=== PATIENT | female | born 1950 | race Caucasian/White ===

== ENCOUNTER 2020-08-19 10:26 | Day surgery (SDC) | payer MEDICARE, OTHER, SELFPAY ==
[2020-08-12 17:52] VITALS: BMI 37.4
--- NOTE | 2020-08-16 09:58 | HO.ANESPROP2 ---
Documented by User: Mary Beasley 08/16/20 12:58 HPI - Anesthesia Eval Consult details Narrative: 70yo F for Colonoscopy T/C with patient: sees Dr Doss for cardiology. Last seen 03/2020. No CP/SOB/edema. PMFSH Past Medical History Medical History Arthritis COPD (chronic obstructive pulmonary disease) Coronary artery disease Diabetes Diarrhea GERD (gastroesophageal reflux disease) Myocardial infarct Surgical History Surgical History H/O: hysterectomy History of cardiac catheterization History of total right knee replacement (TKR) Hx of cholecystectomy Hx of tonsillectomy Social History Social History Smoking Status: Never smoker Second Hand Smoke Exposure: No Use of substances other than those prescribed or required for medical reasons: No Advance Directives: No Advance Directives Information Provided: No Advance Directives on File: No Recently lost weight without trying: No Narrative Narrative: C admit 11/2019 with CP. ACS r/o. Thought related to GI. Meds Allergies Allergy/AdvReac Type Severity Reaction Status Date / Time No Known Allergies Allergy Verified 08/19/20 11:03 Pain Med Sensitivity Allergy Unknown none Uncoded 08/19/20 11:03 Home Medications Medication Instructions Recorded Confirmed Type aspirin 1 tab PO QAM 08/12/20 08/19/20 History atorvastatin 1 tab PO BEDTIME 08/12/20 08/12/20 History cetirizine 1 tab PO DAILY 08/12/20 08/12/20 History cyanocobalamin (vitamin B-12) 1 tab PO QAM 08/12/20 08/12/20 History ferrous sulfate 1 tab PO BID 08/12/20 08/12/20 History fluticasone furoate-vilanterol 1 puff INHALATION DAILY 08/12/20 08/12/20 History [Breo Ellipta] ipratropium-albuterol 1 amp INHALATION QID 08/12/20 08/12/20 History metformin 1 tab PO BID 08/12/20 08/12/20 History metoprolol tartrate 1 tab PO BID 08/12/20 08/19/20 History nitroglycerin 1 tab SUBLINGUAL NEEDED 08/12/20 08/12/20 History oxybutynin chloride 1 tab PO DAILY 08/12/20 08/12/20 History pantoprazole 1 tab PO BID 08/12/20 08/12/20 History sertraline 1 tab PO BEDTIME 08/12/20 08/12/20 History trazodone 1 tab PO BEDTIME 08/12/20 08/12/20 History Exam Exam Date and Time: August 16, 2020 0958 Height,Weight and Vital Signs: Height 5 ft 1 in Weight 89.811 kg Pertinent Lab Results Pertinent Lab Results: Laboratory Tests 12/02/19 02/13/20 19:33 07:26 WBC 10.6 Hgb 11.7 L Hct 35.8 L Plt Count 212 Sodium 142 Potassium 4.7 D Chloride 107 BUN 22 H Creatinine 1.03 Narrative Narrative: EKG 11/2019: NSR, Nonspecific ST abn Assessment and Plan Assessment Anesthesia Assessment: Chart Reviewed Documented by User: Sabino Smalls 08/19/20 11:11 PMFSH Past Medical History Medical History Arthritis COPD (chronic obstructive pulmonary disease) Coronary artery disease Diabetes Diarrhea GERD (gastroesophageal reflux disease) Myocardial infarct Surgical History Surgical History H/O: hysterectomy History of cardiac catheterization History of total right knee replacement (TKR) Hx of cholecystectomy Hx of tonsillectomy Social History Social History Smoking Status: Never smoker Second Hand Smoke Exposure: No Use of substances other than those prescribed or required for medical reasons: No Advance Directives: No Advance Directives Information Provided: No Advance Directives on File: No Recently lost weight without trying: No Meds Allergies Allergy/AdvReac Type Severity Reaction Status Date / Time No Known Allergies Allergy Verified 08/19/20 11:03 Pain Med Sensitivity Allergy Unknown none Uncoded 08/19/20 11:03 Home Medications Medication Instructions Recorded Confirmed Type aspirin 1 tab PO QAM 12/07/20 12/14/20 History atorvastatin 1 tab PO BEDTIME 08/12/20 08/12/20 History cetirizine 1 tab PO DAILY 08/12/20 08/12/20 History cyanocobalamin (vitamin B-12) 1 tab PO QAM 08/12/20 08/12/20 History ferrous sulfate 1 tab PO BID 08/12/20 08/12/20 History fluticasone furoate-vilanterol 1 puff INHALATION DAILY 08/12/20 08/12/20 History [Breo Ellipta] ipratropium-albuterol 1 amp INHALATION QID 08/12/20 08/12/20 History metformin 1 tab PO BID 08/12/20 08/12/20 History metoprolol tartrate 1 tab PO BID 08/12/20 08/19/20 History nitroglycerin 1 tab SUBLINGUAL NEEDED 08/12/20 08/12/20 History oxybutynin chloride 1 tab PO DAILY 08/12/20 08/12/20 History pantoprazole 1 tab PO BID 08/12/20 08/12/20 History sertraline 1 tab PO BEDTIME 08/12/20 08/12/20 History trazodone 1 tab PO BEDTIME 08/12/20 08/12/20 History Exam Airway Mallampati Class: III TM Dist: >3cm Neck ROM: Full
[2020-08-19 11:05] VITALS: BP 118/57; PULSE 70; RESP 18; TEMP 35.9
[2020-08-19 11:16] LABS: Glucose, Whole Blood 166 mg/dL (60-115)
[2020-08-19 12:08] VITALS: BP 109/48; PULSE 66; RESP 15; TEMP 36.2; O2SAT 98
--- NOTE | 2020-08-19 12:17 | PM.OP ---
Brief Operative Note Date of Service: 08/19/20 Pre-op diagnosis: Screening, Hx of colon polyps, Family hx of colon cancer Post-op diagnosis: other (Colon polyp, Diverticulosis) Procedure: Colonoscopy to cecum with biopsy and removal of polyp Surgeon: Ricky Bee Anesthesia: MAC Estimated blood loss (mL): 3.0 Pathology: other (A. Transverse colon polyp) Condition: stable Disposition: PACU
[2020-08-19 12:23] VITALS: BP 120/55; PULSE 63; RESP 14; TEMP 36.2; O2SAT 96
--- NOTE | 2020-08-19 13:04 | HO.POSTANES ---
Post Anesthesia Evaluation Post Anesthesia Evaluation Vital Signs: Vital Signs Temp Pulse Resp BP Pulse Ox 08/19/20 12:23 97.1 F 63 14 120/55 L 96 08/19/20 12:08 97.1 F 66 15 109/48 L 98 08/19/20 11:05 96.7 F L 70 18 118/57 L Anesthesia: Monitored Mental Status: Awake Pain Control: Satisfactory Nausea/Vomiting: None Hydration: Adequate Anesthesia-Related Issues: No Anes. Related Issues
--- NOTE | 2020-08-19 21:54 | OP_ITS ---
SURGEON: Ricky Bee MD INDICATIONS: The patient presents for evaluation of personal history of tubular adenoma of the colon, family history of colon cancer, and colorectal cancer screening. Full consent was obtained from her for this, including risks of bleeding and perforation. PREOPERATIVE DIAGNOSIS: POSTOPERATIVE DIAGNOSIS: PROCEDURE PERFORMED: Colonoscopy to cecum with biopsy and removal of polyp. ESTIMATED BLOOD LOSS: COMPLICATIONS: ANESTHESIA: Medication used, monitored anesthesia care. ASSISTANTS: SPECIMENS: PREOPERATIVE DIAGNOSES: Colorectal cancer screening, personal history of tubular adenoma of the colon, and family history of colon cancer. POSTOPERATIVE DIAGNOSES: Colorectal cancer screening, personal history of tubular adenoma of the colon, family history of colon cancer, small colon polyp, diverticulosis, and internal hemorrhoids. DESCRIPTION OF PROCEDURE: The patient was placed in the left lateral decubitus position. The digital rectal exam revealed no abnormalities. The Olympus video pediatric colonoscope was entered into the rectum and advanced easily to the cecum. Once in the cecum, I did identify normal-appearing cecal pouch with appendiceal orifice and a normal-appearing ileocecal valve. The entire cecum was well visualized and appeared normal. The scope was slowly withdrawn assessing all mucosal surfaces carefully. Preparation was excellent. In the transverse colon was a flat approximately 5 mm polyp, which was biopsied and completely removed with a cold biopsy forceps. I did not visualize any other polyps, colitis, nor angiodysplasia. There was a moderate amount of sigmoid diverticulosis. In the rectum, the scope was retroflexed visualizing internal hemorrhoids, but no other pathology. The rectal mucosa appeared normal. The scope was straightened and withdrawn from the patient. She tolerated the procedure well and was returned to the recovery area in stable condition. IMPRESSION: 1. Small colon polyp, status post biopsy removal. 2. Diverticulosis. 3. Internal hemorrhoids. PLAN: The results of the biopsy will be checked. Given her history of tubular adenomas and her family history, I would recommend a followup colonoscopy in 5 years for further screening. She will otherwise see me on a p.r.n. basis. She was advised to resume aspirin by tomorrow. She will also continue using her pantoprazole once or twice a day for symptomatic relief of reflux. She will otherwise see me on a p.r.n. basis. MD DELANO Slaughter/JACK / [id number]
== END 2020-08-19 13:09 | disposition home or self-care (01) ==
PROVIDERS: PCP Student in an Organized Health Care Education/Training Program; Visit Provider Internal Medicine
PROC: 0DJD8ZZ Inspection of Lower Intestinal Tract, Via Natural or Artificial Opening Endoscopic (ICD-10-PCS; CPT 45378; principal; 2020-08-19 11:50)
DX: Z12.11 Encounter for screening for malignant neoplasm of colon (principal); D12.3 Benign neoplasm of transverse colon; K57.30 Diverticulosis of large intestine without perforation or abscess without bleeding; K64.8 Other hemorrhoids; Z86.010 Personal history of colon polyps; Z80.0 Family history of malignant neoplasm of digestive organs; E11.9 Type 2 diabetes mellitus without complications; Z79.84 Long term (current) use of oral hypoglycemic drugs
CPT/HCPCS: 45380; 82947; 88305

== ENCOUNTER 2020-12-04 08:26 | Outpatient (REF) | payer MEDICARE, OTHER, SELFPAY ==
[2020-12-04 10:16] LABS: Alanine Aminotransferase 15 U/L (0-31); Albumin Level 3.8 g/dL (3.5-5.0); Alkaline Phosphatase 90 U/L (39-117); Anion Gap 16 (12-20); Aspartate Amino Transferase 12 U/L (5-31); Bilirubin Direct < 0.2 mg/dL (0.0-0.5); Bilirubin Total 0.3 mg/dL (0.0-1.0); Blood Urea Nitrogen 18 mg/dL (9-16); Calcium 8.7 mg/dL (8.4-10.2); Carbon Dioxide 24 mmol/L (22-29); Chloride 104 mmol/L (96-108); Cholesterol 157 mg/dL; Estimated Glomerular Filt Rate 54; Glucose Random 170 mg/dL (60-115); HDL Cholesterol 33 mg/dL; LDL Cholesterol Calculated 90 mg/dl; Potassium 4.6 mmol/L (3.3-5.1); Sodium 139 mmol/L (135-145); Total Protein 6.1 g/dL (6.5-8.0); Triglycerides 172 mg/dL
[2020-12-04 10:47] LABS: Creatinine Urine 158.53 mg/dL
[2020-12-04 10:55] LABS: Estimated Average Glucose 157 mg/dL; Hemoglobin A1c % 7.1 %
== END 2020-12-04 08:27 | disposition home or self-care (01) ==
LOC: HO.LAB 08:26
PROVIDERS: PCP Student in an Organized Health Care Education/Training Program; Visit Provider Student in an Organized Health Care Education/Training Program
DX: E11.9 Type 2 diabetes mellitus without complications (principal); I10 Essential (primary) hypertension
CPT/HCPCS: 36415; 80048; 80061; 80076; 82043; 83036

== ENCOUNTER 2021-03-04 13:20 | Outpatient (REF) | payer MEDICARE, OTHER, SELFPAY ==
--- NOTE | ~2021-03-04 | US_ITS ---
EXAMINATION: US VENOUS ULTRASOUND WITH DOPPLER LOWER EXTREMITY, RIGHT CLINICAL INFORMATION: Pain COMPARISON: Previous exam April 2014 TECHNIQUE: Ultrasound of the deep veins is performed from the hip to the calf with compression sonography and color and pulse Doppler assessment. Spectral analysis with color-flow imaging is performed. FINDINGS: There is normal venous compression and respiratory variation and augmented flow. The visualized common femoral vein, superficial femoral vein, profunda femoral vein, popliteal vein, and the trifurcation region shows no evidence of deep venous thrombosis. There is no significant popliteal fossa cyst. US/US venous duplex LE RT IMPRESSION: No DVT demonstrated in the right lower extremity.
[2021-03-04 14:38] LABS: MANUAL DIFF FLAG NO
[2021-03-04 14:48] LABS: Basophils Absolute Auto 0.1 X10*3/uL (0.0-0.2); Basophils Percent Auto 0.7 % (0-2); Hematocrit 36.7 % (37-47); Hemoglobin 11.7 g/dl (12.0-16.0); Imm Gran Abs Auto 0.08 X10*3/uL (0.00-0.03); Imm Gran Pct Auto 0.8 % (0.0-0.4); Lymphocytes Percent Auto 28.6 % (20-40); Mean Corpuscular HGB Conc 31.9 g/dl (31.0-35.0); Mean Corpuscular Volume 91.1 fL (80-98); Mean Platelet Volume 10.5 fL (9.4-12.3); Monocytes Absolute Auto 0.6 X10*3/uL (0.1-1.2); Neutrophils Absolute Auto 6.7 X10*3/uL (2.0-8.3); Neutrophils Percent Auto 63.9 % (45-73); Platelet Count 267 X10*3/uL (160-400); Red Blood Count 4.03 X10*6/uL (4.20-5.50); Red Cell Distribution Width 13.4 % (11.0-16.0); White Blood Count 10.4 X10*3/uL (4.8-10.8)
[2021-03-04 15:15] LABS: Alanine Aminotransferase 13 U/L (0-31); Albumin Level 4.1 g/dL (3.5-5.0); Alkaline Phosphatase 96 U/L (39-117); Anion Gap 18 (12-20); Aspartate Amino Transferase 14 U/L (5-31); Bilirubin Total < 0.2 mg/dL (0.0-1.0); Blood Urea Nitrogen 22 mg/dL (9-16); Calcium 9.2 mg/dL (8.4-10.2); Carbon Dioxide 23 mmol/L (22-29); Chloride 104 mmol/L (96-108); Estimated Glomerular Filt Rate 41; Glucose Random 133 mg/dL (60-115); Potassium 4.7 mmol/L (3.3-5.1); Sodium 140 mmol/L (135-145); Total Protein 6.6 g/dL (6.5-8.0)
[2021-03-04 15:35] LABS: TSH reflex Free T4 1.38 uIU/mL (0.32-4.0)
== END 2021-03-04 13:21 | disposition home or self-care (01) ==
LOC: HO.US 13:20
PROVIDERS: Absent Provider Student in an Organized Health Care Education/Training Program; PCP Student in an Organized Health Care Education/Training Program; Visit Provider General Practice
DX: M79.604 Pain in right leg (principal)
CPT/HCPCS: 36415; 80053; 84443; 85025; 93971

== ENCOUNTER 2021-05-01 13:22 | Outpatient (REF) | payer MEDICARE, OTHER, SELFPAY ==
[2021-05-01 14:41] LABS: COVID-19 Test Negative (Negative)
== END 2021-05-01 13:23 | disposition home or self-care (01) ==
LOC: HO.LAB 13:22
PROVIDERS: PCP Student in an Organized Health Care Education/Training Program; Visit Provider Internal Medicine
DX: Z20.822 Contact with and (suspected) exposure to COVID-19 (principal)
CPT/HCPCS: 36415; 87635; C9803

== ENCOUNTER → 2021-07-28 13:47 | Outpatient (BNVA) | payer MEDICARE, OTHER, SELFPAY | PROVIDERS: PCP Student in an Organized Health Care Education/Training Program; Visit Provider Orthopaedic Surgery | DX: M17.12 Unilateral primary osteoarthritis, left knee (principal); J44.9 Chronic obstructive pulmonary disease, unspecified; E11.9 Type 2 diabetes mellitus without complications; I25.10 Atherosclerotic heart disease of native coronary artery without angina pectoris | CPT/HCPCS: 99212 ==

== ENCOUNTER → 2021-09-30 12:54 | Outpatient (BNVA) | payer MEDICARE, SELFPAY | PROVIDERS: Visit Provider Orthopaedic Surgery | DX: Z01.812 Encounter for preprocedural laboratory examination (principal) ==

== ENCOUNTER 2021-10-07 08:59 | Outpatient (REF) | payer MEDICARE, OTHER, SELFPAY ==
[2021-10-07 10:53] LABS: Hemoglobin 11.9 g/dl (12.0-16.0); Mean Corpuscular HGB Conc 32.2 g/dl (31.0-35.0); Mean Corpuscular Hemoglobin 29.5 pg (27.0-33.0); Mean Corpuscular Volume 91.8 fL (80.0-98.0); Mean Platelet Volume 10.9 fL (9.4-12.3); Platelet Count 244 X10*3/uL (160-400); Red Blood Count 4.03 X10*6/uL (4.20-5.50); Red Cell Distribution Width 13.4 % (11.0-16.0)
[2021-10-07 10:54] LABS: Anion Gap 16 (12-20); Blood Urea Nitrogen 20 mg/dL (9-16); Calcium 10.1 mg/dL (8.4-10.2); Carbon Dioxide 27 mmol/L (22-29); Chloride 102 mmol/L (96-108); Estimated Glomerular Filt Rate 43; Glucose Random 126 mg/dL (60-115); Potassium 4.5 mmol/L (3.3-5.1); Sodium 140 mmol/L (135-145); WBC ABN SCTR FOR CBC 1
[2021-10-07 11:16] LABS: Estimated Average Glucose 126 mg/dL
[2021-10-07 11:24] LABS: Band Neutrophils Percent 3 % (3-5); Eosinophils Percent Manual 7 % (0-4); Lymphocytes Percent Manual 25 % (20-40); Monocytes Percent Manual 9 % (2-11); Neutrophils Percent Manual 56 % (45-73)
[2021-10-07 11:25] LABS: Ovalocytes 1+ (5-14) /OIF; RBC Morphology NOTED
[2021-10-07 11:26] LABS: Acanthocytes 1+ (0-2) /OIF; Basophilic Stippling 1+ (0-2) /OIF
[2021-10-07 11:27] LABS: Burr Cells 1+ (0-2) /OIF; Eosinophils Absolute Manual 0.7 X10*3/uL (0.0-0.4); Lymphocytes Absolute Manual 2.4 X10*3/uL (1.2-4.9); Monocytes Absolute Manual 0.9 X10*3/uL (0.1-1.2); Neutrophils Absolute Manual 5.7 X10*3/uL (2.0-8.3); Platelet Estimate NORMAL (NORMAL); Platelet Morphology Comment NORMAL; White Blood Count 9.7 X10*3/uL (4.8-10.8)
== END 2021-10-07 09:00 | disposition home or self-care (01) ==
LOC: HO.10HDL 08:59
PROVIDERS: Visit Provider Orthopaedic Surgery
DX: Z01.812 Encounter for preprocedural laboratory examination (principal)
CPT/HCPCS: 36415; 80048; 83036; 85007; 85027

== ENCOUNTER → 2021-11-06 09:40 | Outpatient (BNVA) | payer MEDICARE, OTHER, SELFPAY | PROVIDERS: Visit Provider Physician Assistant | DX: Z01.818 Encounter for other preprocedural examination (principal); M17.12 Unilateral primary osteoarthritis, left knee | CPT/HCPCS: 99212 ==

== ENCOUNTER 2021-11-11 10:16 | Inpatient (IN) | payer MEDICARE, OTHER, SELFPAY ==
[2021-11-03 12:54] VITALS: PULSE 85; RESP 16; O2SAT 95; BMI 36.6
--- NOTE | 2021-11-03 13:29 | P.CONAN_ITS ---
Documented by User: Mary Beasley NP 11/03/21 13:46 HPI - Anesthesia Eval Consult details Narrative: 71yo F for Left Knee Replacement Total Cardiac cleared at low risk - should remain on asa and beta maddison PCP clearance pending ? Post-op delerium after Right TKA in 2013 - describes some visual hallucinations and does not remember hospital stay. Required 1 unit PRBC postop. Old record requested from [facility]. PMFSH Active Problems Active Problems: All Active Problems (Updated 11/03/21 @ 13:16 by Christine Patel RN) Arthritis of left knee (Acute) Diabetes (Acute) COPD (chronic obstructive pulmonary disease) (Acute) Coronary artery disease (Acute) Past Medical History Medical History Anxiety and depression Arthritis COPD (chronic obstructive pulmonary disease) Coronary artery disease Diabetes Diarrhea GERD (gastroesophageal reflux disease) History of blood transfusion MRSA (methicillin resistant Staphylococcus aureus) Myocardial infarct Family History Family history of problems with anesthesia: Yes (Father with hx of postop delerium, also similiar rxn to narcotics) Surgical History Surgical History H/O: hysterectomy History of cardiac catheterization History of total right knee replacement (TKR) Hx of cholecystectomy Hx of colonoscopy Hx of tonsillectomy History of Problems with Anesthesia: Yes (Describes muliti day postoperative delerium after R TKA in 2013) Social History Social History Are you a primary residential care facility manager to a significant other at home: No Do you presently have visiting nurse or other home services: Yes ([facility] - [facility]- 2 hours --) Patient Tobacco Use Status: Former Tobacco user Quit Date: 2014 Tobacco use type: Cigarette Second Hand Smoke Exposure: No Use of substances other than those prescribed or required for medical reasons: No Have you been hit, kicked, punched, or otherwise hurt by someone within the past year? If so, by whom?: No Spiritual Healthcare Practices: none [facility] Practices: none Cultural Healthcare Practices: none Are you DNR?: No Advance Directives: No Advance Directives Information Provided: Yes Advance Directives on File: No Recently lost weight without trying: No Narrative Narrative: No recent illness. COPD well controlled with inhaler, has no required nebulaizer in >1 year No CP, [place] at baseline. Activity limited to pain. Meds Allergies Allergy/AdvReac Type Severity Reaction Status Date / Time No Known Allergies Allergy Verified 11/11/21 10:54 Pain Med Sensitivity Allergy Unknown none Uncoded 11/06/21 09:43 Home Medications Medication Instructions Recorded Confirmed Last Taken Type aspirin 81 mg tablet,delayed 1 tab PO QAM 08/12/20 11/06/21 08/18/20 History release atorvastatin 80 mg tablet 1 tab PO BEDTIME 08/12/20 11/06/21 Unknown History cyanocobalamin (vitamin B-12) 1 tab PO QAM 08/12/20 11/06/21 Unknown History 1,000 mcg tablet ferrous sulfate 325 mg (65 mg 1 tab PO BID 08/12/20 11/06/21 Unknown History iron) tablet fluticasone furoate 200 1 puff INHALATION DAILY 08/12/20 11/06/21 Unknown History mcg-vilanterol 25 mcg/dose inhalation powder (Breo Ellipta) ipratropium 0.5 mg-albuterol 3 mg 1 amp INHALATION QID PRN 08/12/20 11/06/21 Unknown History (2.5 mg base)/3 mL nebulization soln metformin 1,000 mg tablet 1 tab PO BID 08/12/20 11/06/21 Unknown History metoprolol tartrate 25 mg tablet 1 tab PO DAILY 08/12/20 11/06/21 08/19/20 09:00 History nitroglycerin 0.4 mg sublingual 1 tab SUBLINGUAL NEEDED PRN 08/12/20 11/06/21 Unknown History tablet oxybutynin chloride 10 mg 1 tab PO .DAILY@NOON 08/12/20 11/06/21 Unknown History tablet,extended release 24 hr pantoprazole 40 mg tablet,delayed 1 tab PO BID 08/12/20 11/06/21 Unknown History release sertraline 50 mg tablet 1 tab PO BEDTIME 08/12/20 11/06/21 Unknown History trazodone 50 mg tablet 1 tab PO BEDTIME 08/12/20 11/06/21 Unknown History glipizide 5 mg tablet 5 mg PO DAILY 09/30/21 11/06/21 Unknown History albuterol sulfate 90 mcg/actuation 2 puff INHALATION Q4-6H PRN 10/31/21 11/06/21 Unknown History aerosol inhaler (ProAir HFA) calcium carbonate 500 mg calcium 1 tab PO QAM 10/31/21 11/06/21 Unknown History (1,250 mg) tablet Exam Exam Date and Time: November 03, 2021 1329 Height,Weight and Vital Signs: Height 5 ft 2 in Weight 90.718 kg Last Vital Signs Pulse 85 11/03/21 12:54 Resp 16 11/03/21 12:54 Pulse Ox 95 11/03/21 12:54 Pertinent Lab Results Pertinent Lab Results: Laboratory Tests 10/07/21 10/07/21 09:07 09:07 WBC 9.7 Hgb 11.9 L Hct 37.0 Plt Count 244 Sodium 140 Potassium 4.5 Chloride 102 Carbon Dioxide 27 BUN 20 H Creatinine 1.23 Laboratory Tests 10/07/21 09:07 Hemoglobin A1c % 6.0 Narrative Narrative: EKG 08/2021 (at cardiac clear appt) NSR Airway Mallampati Class: I TM Dist: >3cm Neck ROM: Full Denture: Upper Partial: Lower (3 lower teeth stable) Loose/Missing/Broken Teeth: Yes Heart: RRR Lungs: CTAB, dim bases Assessment and Plan Assessment Anesthesia Assessment: Anesthesia Plan Discussed and PAT Visit Final Anesthetic Review Family History of Problems with Anesthesia: Yes (Father with hx of postop delerium, also similiar rxn to narcotics) History of Problems with Anesthesia: Yes (Describes mulitiple day postoperative delerium after R TKA in 2013) Documented by User: Juan Carlos Ruiz MD 11/11/21 12:08 HPI - Anesthesia Eval Consult details Narrative: 71yo F for Left Knee Replacement Total Cardiac cleared at low risk - should remain on asa and beta maddison PCP clearance pending Preop oxygen saturation 90% on room air. Mild expiratory wheezes. Administered patient's inhalers prior to proceeding to or. Oxygenation consistent with baseline, patient optimized. ? Post-op delerium after Right TKA in 2013 - describes some visual hallucinations and does not remember hospital stay. Required 1 unit PRBC postop. Old record requested from [facility]. [facility] Past Medical History Medical History Anxiety and depression Arthritis COPD (chronic obstructive pulmonary disease) Coronary artery disease Diabetes Diarrhea GERD (gastroesophageal reflux disease) History of blood transfusion MRSA (methicillin resistant Staphylococcus aureus) Myocardial infarct Surgical History Surgical History H/O: hysterectomy History of cardiac catheterization History of total right knee replacement (TKR) Hx of cholecystectomy Hx of colonoscopy Hx of tonsillectomy Social History Social History Are you a primary residential care facility manager to a significant other at home: No Do you presently have visiting nurse or other home services: Yes ([facility] - [facility]- 2 hours --) Patient Tobacco Use Status: Former Tobacco user Quit Date: 2014 Tobacco use type: Cigarette Second Hand Smoke Exposure: No Use of substances other than those prescribed or required for medical reasons: No Have you been hit, kicked, punched, or otherwise hurt by someone within the past year? If so, by whom?: No Spiritual Healthcare Practices: none [facility] Practices: none Cultural Healthcare Practices: none Are you DNR?: No Advance Directives: No Advance Directives Information Provided: Yes Advance Directives on File: No Recently lost weight without trying: No Meds Allergies Allergy/AdvReac Type Severity Reaction Status Date / Time No Known Allergies Allergy Verified 11/11/21 10:54 Pain Med Sensitivity Allergy Unknown none Uncoded 11/06/21 09:43 Home Medications Medication Instructions Recorded Confirmed Last Taken Type aspirin 81 mg tablet,delayed 1 tab PO QAM 08/12/20 11/06/21 08/18/20 History release atorvastatin 80 mg tablet 1 tab PO BEDTIME 08/12/20 11/06/21 Unknown History cyanocobalamin (vitamin B-12) 1 tab PO QAM 08/12/20 11/06/21 Unknown History 1,000 mcg tablet ferrous sulfate 325 mg (65 mg 1 tab PO BID 08/12/20 11/06/21 Unknown History iron) tablet fluticasone furoate 200 1 puff INHALATION DAILY 08/12/20 11/06/21 Unknown H istory mcg-vilanterol 25 mcg/dose inhalation powder (Breo Ellipta) ipratropium 0.5 mg-albuterol 3 mg 1 amp INHALATION QID PRN 08/12/20 11/06/21 Unknown History (2.5 mg base)/3 mL nebulization soln metformin 1,000 mg tablet 1 tab PO BID 08/12/20 11/06/21 Unknown History metoprolol tartrate 25 mg tablet 1 tab PO DAILY 08/12/20 11/06/21 08/19/20 09:00 History nitroglycerin 0.4 mg sublingual 1 tab SUBLINGUAL NEEDED PRN 08/12/20 11/06/21 Unknown History tablet oxybutynin chloride 10 mg 1 tab PO .DAILY@NOON 08/12/20 11/06/21 Unknown History tablet,extended release 24 hr pantoprazole 40 mg tablet,delayed 1 tab PO BID 08/12/20 11/06/21 Unknown History release sertraline 50 mg tablet 1 tab PO BEDTIME 08/12/20 11/06/21 Unknown History trazodone 50 mg tablet 1 tab PO BEDTIME 08/12/20 11/06/21 Unknown History glipizide 5 mg tablet 5 mg PO DAILY 09/30/21 11/06/21 Unknown History albuterol sulfate 90 mcg/actuation 2 puff INHALATION Q4-6H PRN 10/31/21 11/06/21 Unknown History aerosol inhaler (ProAir HFA) calcium carbonate 500 mg calcium 1 tab PO QAM 10/31/21 11/06/21 Unknown History (1,250 mg) tablet Assessment and Plan Final Anesthetic Review NPO: Yes ASA Class: III Final Preanesthetic Review: No Changes in Pt Med Stat, Meds/Allgs Chart Reviewed, Consent Obtained/Reviewed and Anes Risks/Benef Reviewed Patient Risk: Intermediate Procedure Risk: Intermediate Anesthetic Plan Anesthetic Plan: MAC:, Spinal and Regional Block Disposition: Standard PACU
[2021-11-03 15:20] LABS: MRSA Nasal PCR POSITIVE (Negative); SA Nasal PCR POSITIVE (Negative)
[2021-11-11] VITALS (9 sets, daily range): BP systolic 97–147; BP diastolic 44–92; PULSE 63–90; RESP 13–18; TEMP 36.2–36.4; O2SAT 91–100
--- NOTE | ~2021-11-11 | XR_ITS ---
EXAMINATION: XR KNEE, LEFT CLINICAL INFORMATION: Postop COMPARISON: Previous x-ray most recent February 2020 TECHNIQUE: Two views of the left knee. FINDINGS: There is a new 3 component left knee replacement in satisfactory position. No fracture or dislocation is seen. There are postoperative changes to the soft tissues. There is evidence of atherosclerotic disease. XR/XR knee LT 2V IMPRESSION: Satisfactory appearance of left knee replacement.
--- NOTE | 2021-11-11 06:00 | ECG_ITS ---
Test Reason : PREOP Blood Pressure : / mmHG Vent. Rate : 090 BPM Atrial Rate : 090 BPM P-R Int : 152 ms QRS Dur : 082 ms QT Int : 376 ms P-R-T Axes : 059 -23 028 degrees QTc Int : 459 ms Normal sinus rhythm Low voltage QRS Borderline ECG When compared with ECG of 02-DEC-2019 19:05, No significant change was found Referred By: Emmanuel Arteaga Electronically Signed By:TROY ULRICH MD
--- NOTE | 2021-11-11 07:32 | MHC.SHP ---
Pre-Procedural Eval Section A Date of Service: 11/11/21 The patient is an INPATIENT: No Changes since office visit: Yes Patient answered all questions; No Cold of Flu in the past 2 weeks, No New Medical Problems and No Changes in Medication The History & Physical has been completed within 30 days and I have reviewed it.: Yes Section B Chief Complaint: Osteoarthritis left knee Allergies: Allergies Allergy/AdvReac Type Severity Reaction Status Date / Time No Known Allergies Allergy Verified 11/06/21 09:43 Pain Med Sensitivity Allergy Unknown none Uncoded 11/06/21 09:43 Plan I have reviewed the history and physical and performed a pertinent physical examination on my patient. No changes have occurred unless specified.
[2021-11-11 10:51] LABS: COVID-19 Test Negative (Negative); IDNOW Serial# 16C4AD1C
[2021-11-11] MEDS: vancomycin HCL 1,500 MG in 0.9 % Sodium Chloride 500 ML 333.33 MG IV ×2 (11:04→22:10)
[2021-11-11] MEDS: Lactated Ringers 1,000 ML 100 ML IVCONT ×2 (11:04→16:11)
[2021-11-11 11:11] LABS: Glucose, Whole Blood 116 mg/dL (60-115)
--- NOTE | 2021-11-11 13:06 | P.BOP_ITS ---
Brief Operative Note Date of Service: 11/11/21 Pre-op diagnosis: left knee OA Post-op diagnosis: same Procedure: Left TKA Implants: [place] Tri[employer] press fit cruciate retaining Surgeon: Garfield De Guzman MD Anesthesia: regional and spinal Was an Stacker Straightener used for this Procedure?: Yes Stacker Straightener: Bebe Leblanc Estimated blood loss (mL): 150 IV fluids (mL): 1,000 Pathology: other Condition: stable Disposition: PACU
--- NOTE | 2021-11-11 13:21 | P.OP_ITS ---
Operative Note Operative Note Date of Service: 11/11/21 Narrative: Pre-op diagnosis: left knee OA Post-op diagnosis: same Procedure: Left TKA Implants: [place] Tri[employer] press fit cruciate retaining Surgeon: Garfield De Guzman MD Anesthesia: regional and spinal Was an Publications Designer used for this Procedure?: Yes Publications Designer: Bebe Leblanc Estimated blood loss (mL): 150 IV fluids (mL): 1,000 Pathology: other Condition: stable Disposition: PACU Procedure in detail: The patient was brought to the operating room and prepped and draped in standard sterile fashion. A time-out was called to identify proper site proper procedure proper surgeon and IV antibiotics were administered. 1 g of IV tranexamic acid was administered. I began by making a midline incision to the retinaculum and performed a medial parapatellar arthrotomy. The patella was translated laterally and the knee was flexed up. The medial compartment theodora eburnated. I performed a small medial peel and resected the infrapatellar fat pad. [place]'s line was then used to drill my intramedullary femoral guide and my distal femur cut of 12 mm was made in 5 degrees of valgus while protecting the soft tissues. I then measured a # 2 femur and placed my cutting guide and made my anterior posterior and chamfer cuts protecting the soft tissues at all times. I removed the meniscus medially and laterally and , using an external cutting guide, in line with the tibial crest and the third ray, I made my distal tibial cut in 0 deg slope of while protecting the PCL the posterior soft tissues at all times. An extension block was used to confirm appropriate amount of bony resection. I then sized a #2 tibia and once I was satisfied that there was complete tibial coverage I placed my trial and with the trial femur in place took the knee through range of motion. I was satisfied with the extension and flexion as well as the stability at 0, 30 and 90 degrees. I then turned my attention to the patella where I removed 1 cm from the undersurface of the patella and then trialed a 29a patellar button. Again the knee was taken through range of motion I was satisfied with the tracking. I then returned to the femur and drilled my femoral lug holes and prepared the tibia. A femoral bone plug was placed and the knee was irrigated copiously. I then press fit the patella, tibia and femur in standard fashion. I trialed different inserts until I selected a #9 insert. The final insert was placed and a 3 minutes iodine soak with local TXA was performed.A werewolf device was used to maintain hemostasis. The knee was then closed with a running Quill suture, a 3 0 Vicryl and yoni on the skin. Patient was then placed in sterile dressing and brought to recovery room in stable condition there were no known complications.
--- NOTE | 2021-11-11 16:07 | P.CONIM_ITS ---
History of Present Illness Data of Consult Service Date: 11/11/21 Primary Care Provider: Estrella Brunner MD HPI Reason for consult: COPD, diabetes, hypertension, CAD 71-year-old female presented for elective left total knee arthroplasty. Patient has a medical history of coronary disease status post stent, COPD, diabetes, hypertension. Postoperatively patient is feeling well, only has mild pain, denies chest pain, shortness of breath, fever, chills. Review of Systems Review of Systems: Constitutional: Denies fever, denies Chills Eyes: denies blurry vision ENT: denies sore throat CVS: denies chest pain Respiratory: Denies dyspnea GI: no abdominal pain : denies dysuria MSK: denies neck pain Skin: denies rash Neuro: denies specific motor weakness Psych: denies suicidal ideation Endocrine: denies heat/cold intolerance Hematologic: denies easy bleeding Allergy: denies hives PMF Medical History Anxiety and depression Arthritis COPD (chronic obstructive pulmonary disease) Coronary artery disease Diabetes Diarrhea GERD (gastroesophageal reflux disease) History of blood transfusion MRSA (methicillin resistant Staphylococcus aureus) Myocardial infarct Family History (Updated 11/11/21 @ 16:08 by Andrés De La Rosa MD) Father Colon cancer Surgical History H/O: hysterectomy History of cardiac catheterization History of total right knee replacement (TKR) Hx of cholecystectomy Hx of colonoscopy Hx of tonsillectomy Social History Are you a primary care partner to a significant other at home: No Do you presently have visiting nurse or other home services: Yes ([facility]- 2 hours --) Patient Tobacco Use Status: Former Tobacco user Quit Date: 2014 Tobacco use type: Cigarette Second Hand Smoke Exposure: No Use of substances other than those prescribed or required for medical reasons: No Have you been hit, kicked, punched, or otherwise hurt by someone within the past year? If so, by whom?: No Spiritual Healthcare Practices: none Rastafarian Healthcare Practices: none Cultural Healthcare Practices: none Are you DNR?: No Advance Directives: No Advance Directives Information Provided: Yes Advance Directives on File: No Recently lost weight without trying: No Meds Allergies Allergy/AdvReac Type Severity Reaction Status Date / Time No Known Allergies Allergy Verified 11/11/21 10:54 Pain Med Sensitivity Allergy Unknown none Uncoded 11/06/21 09:43 Active Medications: Current Medications Acetaminophen (Acetaminophen 325 Mg Tablet) 650 mg PO Q6H PRN PRN Reason: Pain, Mild (Pain Scale 1-3) Albuterol Sulfate (Albuterol Sulfate 90 Mcg 8 Gm Inhaler) 2 puff INHALE Q4H PRN PRN Reason: Shortness Of Breath Or Wheezing Albuterol/Ipratropium (Albuterol/Iprat 2.5/0.5mg 3 Ml Ampul.Neb) ml INHALE QID PRN PRN Reason: Shortness Of Breath Or Wheezing Atorvastatin Calcium (Atorvastatin Calcium 80 Mg Tablet) 80 mg PO BEDTIME [facility] Calcium Carbonate (Calcium Carbonate 500 Mg Tablet) 500 mg PO DAILY [facility] Celecoxib (Celecoxib 200 Mg Capsule) 200 mg PO BID [facility] Cyanocobalamin (Cyanocobalamin (Vitamin B-12) 1,000 Mcg Tablet) mcg PO QAM [facility] Dextrose (Dextrose 50 % 25 Gm/50 Ml Vial) 25 gm IVPUSH Q15M PRN; Protocol PRN Reason: per Hypoglycemia Standing Ord. Docusate Sodium (Docusate Sodium 100 Mg Capsule) 100 mg PO BID [facility] Ferrous Sulfate (Ferrous Sulfate 324 Mg Tablet.Dr) 324 mg PO BID [facility] Fluticasone/Vilanterol (Fluticasone/Vilanterol 200/25 Blst.W.Dev) 1 puff INHALE RDAILY [facility] Glucose (Glucose Gel 15 Gm Gel..Gram.) 15 gm PO Q15M PRN; Protocol PRN Reason: per Hypoglycemia Standing Ord. Hydromorphone HCl (Hydromorphone Hcl 1 Mg/Ml Syringe) 0.25 mg IVPUSH Q4H PRN; Protocol PRN Reason: Pain, Severe (Pain Scale 7-10) Lactated Ringer's (Lr) 1,000 mls @ 100 mls/hr IVCONT .Q10H [facility] Last Admin: 11/11/21 11:04 Dose: 100 mls/hr Documented by: Cefazolin Sodium/Dextrose (Ancef) 2 gm in 50 mls @ 100 mls/hr IV POSTOP ONE Stop: 11/11/21 19:29 Insulin Human Lispro (Insulin Lispro 100 Unit/Ml 3 Ml Vial) 0 unit SUBCUT Q6H [facility]; Protocol Stop: 11/12/21 15:49 Metoprolol Tartrate (Metoprolol Tartrate 25 Mg Tablet) 25 mg PO DAILY [facility]; Protocol Nitroglycerin (Nitroglycerin 0.4 Mg Tab.Subl) 0.4 mg SUBLINGUAL Q5MX3 PRN PRN Reason: Chest Pain Non-Formulary Medication (Pantoprazole) 1 tab PO BID [facility] Ondansetron HCl (Ondansetron Hcl 4 Mg/2 Ml Vial) 4 mg IVPUSH Q8H PRN PRN Reason: Nausea and Vomiting Oxycodone HCl (Oxycodone Hcl Immed Release 5 Mg Tablet) 5 mg PO Q4H PRN PRN Reason: Pain, Moderate (Pain Scale 4-6 Oxycodone HCl (Oxycodone Hcl Er 10 Mg Tab.Er.12h) 10 mg PO BID [facility] Sertraline HCl (Sertraline Hcl 50 Mg Tablet) 50 mg PO BEDTIME [facility] Sodium Chloride (0.9 % Sodium Chloride Flush 3 Ml Syringe) 3 ml IVFLUSH QSHIFT [facility] Trazodone HCl (Trazodone Hcl 50 Mg Tablet) 50 mg PO BEDTIME [facility] Home Medications Medication Instructions Recorded Confirmed Last Taken Type aspirin 81 mg tablet,delayed 1 tab PO QAM 08/12/20 11/06/21 08/18/20 History release atorvastatin 80 mg tablet 1 tab PO BEDTIME 08/12/20 11/06/21 Unknown History cyanocobalamin (vitamin B-12) 1 tab PO QAM 08/12/20 11/06/21 Unknown History 1,000 mcg tablet ferrous sulfate 325 mg (65 mg 1 tab PO BID 08/12/20 11/06/21 Unknown History iron) tablet fluticasone furoate 200 1 puff INHALATION DAILY 08/12/20 11/06/21 Unknown History mcg-vilanterol 25 mcg/dose inhalation powder (Breo Ellipta) ipratropium 0.5 mg-albuterol 3 mg 1 amp INHALATION QID PRN 08/12/20 11/06/21 Unknown History (2.5 mg base)/3 mL nebulization soln metformin 1,000 mg tablet 1 tab PO BID 08/12/20 11/06/21 Unknown History metoprolol tartrate 25 mg tablet 1 tab PO DAILY 08/12/20 11/06/21 08/19/20 09:00 History nitroglycerin 0.4 mg sublingual 1 tab SUBLINGUAL NEEDED PRN 08/12/20 11/06/21 Unknown History tablet oxybutynin chloride 10 mg 1 tab PO .DAILY@NOON 08/12/20 11/06/21 Unknown History tablet,extended release 24 hr pantoprazole 40 mg tablet,delayed 1 tab PO BID 08/12/20 11/11/21 11/11/21 History release sertraline 50 mg tablet 1 tab PO BEDTIME 08/12/20 11/06/21 Unknown History trazodone 50 mg tablet 1 tab PO BEDTIME 08/12/20 11/06/21 Unknown History glipizide 5 mg tablet 5 mg PO DAILY 09/30/21 11/06/21 Unknown History albuterol sulfate 90 mcg/actuation 2 puff INHALATION Q4-6H PRN 10/31/21 11/06/21 Unknown History aerosol inhaler (ProAir HFA) calcium carbonate 500 mg calcium 1 tab PO QAM 10/31/21 11/06/21 Unknown History (1,250 mg) tablet Physical Exam Vital Signs and Narrative: Vital Signs: Last Vital Signs Temp 97.1 F 11/11/21 13:09 Pulse 64 11/11/21 14:55 Resp 15 11/11/21 14:55 BP 123/64 11/11/21 14:55 Pulse Ox 99 11/11/21 14:55 BMI result Body Mass Index 36.6 General: no acute distress HEENT: atraumatic Neck: normal to visual inspection CVS: S1, S2, RRR Resp: CTA bilateral Chest: non tender GI: soft, non tender, non distended : no CVA tenderness Skin: no rashes Extremities: no edema Neuro: Oriented X3, grossly intact Psych: cooperative Results Labs Labs: Laboratory Results - last 24 hr 11/11/21 11/11/21 10:00 11:07 POC Glucose 116 H COVID-19 ([facility]) Negative COVID-19 Clin Com See Note Imaging Radiologist's Impressions: Impressions Knee X-Ray 11/11/21 14:25 IMPRESSION: Satisfactory appearance of left knee replacement. Assessment and Plan (1) COPD (chronic obstructive pulmonary disease): Status: Acute Plan 71F admitted for elective left tka left tka management per orthopedicas CAD s/p stent statin, restart asa when ok from surgerical perspective COPD conitnue bridger breen prn DM hold orals insulin GERD PPI HTN metoprolol
[2021-11-11 16:12] LABS: Glucose, Whole Blood 205 mg/dL (60-115)
[2021-11-11] MEDS: Insulin Lispro 100 UNIT/ML 3 ML VIAL SUBCUT ×2 (16:35→21:10)
[2021-11-11] MEDS: Omeprazole 20 MG CAPSULE.DR PO (16:35)
[2021-11-11] MEDS: Acetaminophen 325 MG TABLET 650 MG PO (17:26)
[2021-11-11] MEDS: oxyCODONE HCl Immed Release 5 MG TABLET PO (17:26)
[2021-11-11] MEDS: HYDROmorphone HCl 1 MG/ML SYRINGE 0.25 MG IVPUSH ×2 (18:07→21:10)
[2021-11-11] MEDS: ceFAZolin Sodium/Dextrose,Iso 2 GM/50 ML PIGGYBACK IV (18:10)
[2021-11-11] MEDS: Celecoxib 200 MG CAPSULE PO (19:35)
[2021-11-11] MEDS: Docusate Sodium 100 MG CAPSULE PO (19:35)
[2021-11-11] MEDS: Atorvastatin Calcium 80 MG TABLET PO (19:35)
[2021-11-11] MEDS: Ferrous Sulfate 324 MG TABLET.DR PO (19:35)
[2021-11-11] MEDS: oxyCODONE HCl ER 10 MG TAB.ER.12H PO (19:36)
[2021-11-11 20:01] LABS: Glucose, Whole Blood 303 mg/dL (60-115)
[2021-11-11] MEDS: 0.9 % Sodium Chloride Flush 3 ML SYRINGE IVFLUSH (21:10)
[2021-11-11] MEDS: oxyCODONE HCl Immed Release 5 MG TABLET 10 MG PO (22:08)
[2021-11-11] MEDS: Sertraline HCL 50 MG TABLET PO (22:08)
[2021-11-11] MEDS: traZODone HCL 50 MG TABLET PO (22:08)
[2021-11-12] VITALS (10 sets, daily range): BP systolic 94–123; BP diastolic 48–59; PULSE 67–82; RESP 14–20; TEMP 36.2–36.5; O2SAT 89–95
[2021-11-12] MEDS: oxyCODONE HCl Immed Release 5 MG TABLET 10 MG PO ×5 (02:29→22:15)
[2021-11-12] MEDS: Acetaminophen 325 MG TABLET 650 MG PO (02:29)
[2021-11-12] MEDS: Lactated Ringers 1,000 ML 100 ML IVCONT ×2 (03:17→21:25)
[2021-11-12 03:19] LABS: Glucose, Whole Blood 197 mg/dL (60-115)
[2021-11-12] MEDS: HYDROmorphone HCl 1 MG/ML SYRINGE 0.25 MG IVPUSH ×4 (05:28→23:40)
[2021-11-12] MEDS: Omeprazole 20 MG CAPSULE.DR PO ×2 (05:28→16:52)
[2021-11-12 06:07] LABS: MANUAL DIFF FLAG NO
[2021-11-12 06:21] LABS: Basophils Percent Auto 0.2 % (0-2); Eosinophils Percent Auto 0.1 % (0-4); Hematocrit 30.1 % (37.0-47.0); Hemoglobin 9.4 g/dl (12.0-16.0); Imm Gran Abs Auto 0.08 X10*3/uL (0.00-0.03); Imm Gran Pct Auto 0.8 % (0.0-0.4); Lymphocytes Absolute Auto 1.3 X10*3/uL (1.2-4.9); Lymphocytes Percent Auto 13.2 % (20-40); Mean Corpuscular HGB Conc 31.2 g/dl (31.0-35.0); Mean Corpuscular Hemoglobin 29.3 pg (27.0-33.0); Mean Corpuscular Volume 93.8 fL (80.0-98.0); Mean Platelet Volume 10.5 fL (9.4-12.3); Monocytes Absolute Auto 0.7 X10*3/uL (0.1-1.2); Monocytes Percent Auto 7.8 % (2-11); Neutrophils Absolute Auto 7.4 x10*3/uL (2.0-8.3); Neutrophils Percent Auto 77.9 % (45-73); Platelet Count 185 X10*3/uL (160-400); Red Blood Count 3.21 X10*6/uL (4.20-5.50); Red Cell Distribution Width 13.1 % (11.0-16.0); White Blood Count 9.5 X10*3/uL (4.8-10.8)
[2021-11-12 06:30] LABS: Anion Gap 12 (12-20); Blood Urea Nitrogen 29 mg/dL (9-16); Carbon Dioxide 25 mmol/L (22-29); Chloride 103 mmol/L (96-108); Creatinine Clr Calc Pharmacy 40.9; Estimated Glomerular Filt Rate 39; Glucose Fasting 189 mg/dL (60-99); Potassium 5.2 mmol/L (3.3-5.1); Sodium 135 mmol/L (135-145)
--- NOTE | 2021-11-12 07:31 | PM.PNORT ---
Subjective Subjective Date of Service: 11/12/21 Interval history: POD1 s/p LTKA. Patient had pain overnight. Medication adjusted accordingly. Pain is now well managed. No additional overnight events. Patient is resting comfortably in bed. No additional Complaints. Physical Exam Vital Signs: Vital Signs: Last Vital Signs Temp 97.1 F 11/12/21 07:24 Pulse 73 11/12/21 07:24 Resp 14 11/12/21 07:24 BP 123/50 L 11/12/21 07:24 Pulse Ox 94 11/12/21 07:24 BMI result Body Mass Index 36.6 Const: General: cooperative, healthy appearing and no acute distress Resp: Effort & Inspection: normal respiratory effort and able to speak in complete sentences Cardio: Rate: regular rate Peripheral pulses: Peripheral pulses 2+ throughout GI: Palpation (GI): Soft to palpation Skin: Lesions: no lesions Rashes: no rashes Extrem: Other: Lt knee Aquacel is clean, dry, and intact. NVI. Procedures Date of Service Date of Service: 11/12/21 Progress Note: A&P Assessment and plan (1) Status post total knee replacement, left: Status: Acute Assessment and Plan: Continue pain mgmnt Begin ASA for dvt ppx begin PT for LTKA Dispo planning-Pending PT eval, pain mgmnt Fall Risk Details Current Medications: Current Medications Acetaminophen (Acetaminophen 325 Mg Tablet) 650 mg PO Q6H PRN PRN Reason: Pain, Mild (Pain Scale 1-3) Last Admin: 11/12/21 02:29 Dose: 650 mg Documented by: Albuterol Sulfate (Albuterol Sulfate 90 Mcg 8 Gm Inhaler) 2 puff INHALE Q4H PRN PRN Reason: Shortness Of Breath Or Wheezing Albuterol/Ipratropium (Albuterol/Iprat 2.5/0.5mg 3 Ml Ampul.Neb) 3 ml INHALE QID PRN PRN Reason: Shortness Of Breath Or Wheezing Atorvastatin Calcium (Atorvastatin Calcium 80 Mg Tablet) 80 mg PO BEDTIME [facility] Last Admin: 11/11/21 19:35 Dose: 80 mg Documented by: Calcium Carbonate (Calcium Carbonate 500 Mg Tablet) 500 mg PO DAILY [facility] Celecoxib (Celecoxib 200 Mg Capsule) 200 mg PO BID [facility] Last Admin: 11/11/21 19:35 Dose: 200 mg Documented by: Cyanocobalamin (Cyanocobalamin (Vitamin B-12) 1,000 Mcg Tablet) 1,000 mcg PO DAILY [facility] Dextrose (Dextrose 50 % 25 Gm/50 Ml Vial) 25 gm IVPUSH Q15M PRN; Protocol PRN Reason: per Hypoglycemia Standing Ord. Docusate Sodium (Docusate Sodium 100 Mg Capsule) 100 mg PO BID [facility] Last Admin: 11/11/21 19:35 Dose: 100 mg Documented by: Ferrous Sulfate (Ferrous Sulfate 324 Mg Tablet.) 324 mg PO BID [facility] Last Admin: 11/11/21 19:35 Dose: 324 mg Documented by: Fluticasone/Vilanterol (Fluticasone/Vilanterol 200/25 Blst.W.Dev) 1 puff INHALE RDAILY [facility] Glucose (Glucose Gel 15 Gm Gel..Gram.) 15 gm PO Q15M PRN; Protocol PRN Reason: per Hypoglycemia Standing Ord. Hydromorphone HCl (Hydromorphone Hcl 1 Mg/Ml Syringe) 0.25 mg IVPUSH Q3H PRN; Protocol PRN Reason: Pain, Severe (Pain Scale 7-10) Last Admin: 11/12/21 05:28 Dose: 0.25 mg Documented by: Lactated Ringer's (Lr) 1,000 mls @ 100 mls/hr IVCONT .Q10H [facility] Last Admin: 11/12/21 03:17 Dose: 100 mls/hr Documented by: Insulin Human Lispro (Insulin Lispro 100 Unit/Ml 3 Ml Vial) 0 unit SUBCUT QIDACHS [facility]; Protocol Stop: 11/12/21 15:49 Metoprolol Tartrate (Metoprolol Tartrate 25 Mg Tablet) 25 mg PO DAILY [facility]; Protocol Nitroglycerin (Nitroglycerin 0.4 Mg Tab.Subl) 0.4 mg SUBLINGUAL Q5MX3 PRN PRN Reason: Chest Pain Omeprazole (Omeprazole 20 Mg Capsule.) 20 mg PO BID@0630,1630 [facility] Last Admin: 11/12/21 05:28 Dose: 20 mg Documented by: Ondansetron HCl (Ondansetron Hcl 4 Mg/2 Ml Vial) 4 mg IVPUSH Q8H PRN PRN Reason: Nausea and Vomiting Oxycodone HCl (Oxycodone Hcl Er 10 Mg Tab.Er.12h) 10 mg PO BID [facility] Last Admin: 11/11/21 19:36 Dose: 10 mg Documented by: Oxycodone HCl (Oxycodone Hcl Immed Release 5 Mg Tablet) 10 mg PO Q4H PRN PRN Reason: Pain, Moderate (Pain Scale 4-6 Last Admin: 11/12/21 07:26 Dose: 10 mg Documented by: Sertraline HCl (Sertraline Hcl 50 Mg Tablet) 50 mg PO BEDTIME [facility] Last Admin: 11/11/21 22:08 Dose: 50 mg Documented by: Sodium Chloride (0.9 % Sodium Chloride Flush 3 Ml Syringe) 3 ml IVFLUSH QSHIFT [facility] Last Admin: 11/12/21 07:24 Dose: Not Given Documented by: Trazodone HCl (Trazodone Hcl 50 Mg Tablet) 50 mg PO BEDTIME [facility] Last Admin: 11/11/21 22:08 Dose: 50 mg Documented by: Time Spent With Patient Time: Total time spent is greater than 50% in coordination of care (as documented) at patient's floor/unit and/or counseling patient: Time with patient: less than 15 minutes Quality Stroke Does the patient have a stroke diagnosis?: No VTE Prior VTE?: No VTE Risk Level:: Surgical - very high VTE Device Contraindication: N/A - Device Ordered VTE Drug Contraindication: N/A - Med Ordered
[2021-11-12] MEDS: Fluticasone/Vilanterol 200/25 BLST.W.DEV 1 PUFF INHALE (08:12)
[2021-11-12 08:42] LABS: Glucose, Whole Blood 142 mg/dL (60-115)
--- NOTE | 2021-11-12 09:03 | HO.PM.IMPN ---
Subjective Subjective Date of Service: 11/12/21 Interval History: cc: knee pian interval history: surgical site pain Cardiovascular Cardiovascular: Reports no additional cardiovascular complaints Respiratory Respiratory: Reports no additional respiratory complaints Physical Exam Vital Signs: Vital Signs: Last Vital Signs Temp 97.1 F 11/12/21 07:24 Pulse 71 11/12/21 08:38 Resp 20 11/12/21 08:18 BP 123/50 L 11/12/21 07:24 Pulse Ox 94 11/12/21 07:24 BMI result Body Mass Index 36.6 General: AO X 3, no acute distress Resp: CTA bilateral, no accessory muscles used CVS: S1,S2,RRR GI: soft, non tender, non distended Neuro: motor grossly intact, alert Psych: appropriate affect, appropriate insight Objective Data Active Medications Acetaminophen (Acetaminophen 325 Mg Tablet) 650 mg PO Q6H PRN PRN Reason: Pain, Mild (Pain Scale 1-3) Last Admin: 11/12/21 02:29 Dose: 650 mg Documented by: BOBBI Albuterol Sulfate (Albuterol Sulfate 90 Mcg 8 Gm Inhaler) 2 puff INHALE Q4H PRN PRN Reason: Shortness Of Breath Or Wheezing Albuterol/Ipratropium (Albuterol/Iprat 2.5/0.5mg 3 Ml Ampul.Neb) 3 ml INHALE QID PRN PRN Reason: Shortness Of Breath Or Wheezing Aspirin (Aspirin 325 Mg Tablet) 325 mg PO BID [facility] Atorvastatin Calcium (Atorvastatin Calcium 80 Mg Tablet) 80 mg PO BEDTIME [facility] Last Admin: 11/11/21 19:35 Dose: 80 mg Documented by: BOBBI Calcium Carbonate (Calcium Carbonate 500 Mg Tablet) 500 mg PO DAILY [facility] Celecoxib (Celecoxib 200 Mg Capsule) 200 mg PO BID [facility] Last Admin: 11/11/21 19:35 Dose: 200 mg Documented by: BOBBI Cyanocobalamin (Cyanocobalamin (Vitamin B-12) 1,000 Mcg Tablet) 1,000 mcg PO DAILY [facility] Dextrose (Dextrose 50 % 25 Gm/50 Ml Vial) 25 gm IVPUSH Q15M PRN; Protocol PRN Reason: per Hypoglycemia Standing Ord. Docusate Sodium (Docusate Sodium 100 Mg Capsule) 100 mg PO BID [facility] Last Admin: 11/11/21 19:35 Dose: 100 mg Documented by: BOBBI Ferrous Sulfate (Ferrous Sulfate 324 Mg Tablet.) 324 mg PO BID [facility] Last Admin: 11/11/21 19:35 Dose: 324 mg Documented by: BOBBI Fluticasone/Vilanterol (Fluticasone/Vilanterol 200/25 Blst.W.Dev) 1 puff INHALE RDAILY [facility] Last Admin: 11/12/21 08:12 Dose: 1 puff Documented by: LILI Glucose (Glucose Gel 15 Gm Gel..Gram.) 15 gm PO Q15M PRN; Protocol PRN Reason: per Hypoglycemia Standing Ord. Hydromorphone HCl (Hydromorphone Hcl 1 Mg/Ml Syringe) 0.25 mg IVPUSH Q3H PRN; Protocol PRN Reason: Pain, Severe (Pain Scale 7-10) Last Admin: 11/12/21 05:28 Dose: 0.25 mg Documented by: BOBBI Lactated Ringer's (Lr) 1,000 mls @ 100 mls/hr IVCONT .Q10H [facility] Last Admin: 11/12/21 03:17 Dose: 100 mls/hr Documented by: BOBBI Insulin Human Lispro (Insulin Lispro 100 Unit/Ml 3 Ml Vial) 0 unit SUBCUT QIDACHS [facility]; Protocol Stop: 11/12/21 15:49 Last Admin: 11/12/21 08:22 Dose: Not Given Documented by: MARYLIN Non-Admin Reason: Patient Refused Metoprolol Tartrate (Metoprolol Tartrate 25 Mg Tablet) 25 mg PO DAILY [facility]; Protocol Nitroglycerin (Nitroglycerin 0.4 Mg Tab.Subl) 0.4 mg SUBLINGUAL Q5MX3 PRN PRN Reason: Chest Pain Omeprazole (Omeprazole 20 Mg Capsule.) 20 mg PO BID@0630,1630 [facility] Last Admin: 11/12/21 05:28 Dose: 20 mg Documented by: BOBBI Ondansetron HCl (Ondansetron Hcl 4 Mg/2 Ml Vial) 4 mg IVPUSH Q8H PRN PRN Reason: Nausea and Vomiting Oxycodone HCl (Oxycodone Hcl Er 10 Mg Tab.Er.12h) 10 mg PO BID [facility] Last Admin: 11/11/21 19:36 Dose: 10 mg Documented by: BOBBI Oxycodone HCl (Oxycodone Hcl Immed Release 5 Mg Tablet) 10 mg PO Q4H PRN PRN Reason: Pain, Moderate (Pain Scale 4-6 Last Admin: 11/12/21 07:26 Dose: 10 mg Documented by: MARYLIN Sertraline HCl (Sertraline Hcl 50 Mg Tablet) 50 mg PO BEDTIME [facility] Last Admin: 11/11/21 22:08 Dose: 50 mg Documented by: BOBBI Sodium Chloride (0.9 % Sodium Chloride Flush 3 Ml Syringe) 3 ml IVFLUSH QSHIFT [facility] Last Admin: 11/12/21 07:24 Dose: Not Given Documented by: MARYLIN Non-Admin Reason: IV Running Trazodone HCl (Trazodone Hcl 50 Mg Tablet) 50 mg PO BEDTIME [facility] Last Admin: 11/11/21 22:08 Dose: 50 mg Documented by: BOBBI Labs CBC & Chem 7: 11/12/21 05:48 11/12/21 05:48 Labs: Laboratory Results - last 24 hr 11/11/21 11/11/21 11/11/21 10:00 11:07 16:06 MCV MCH MCHC RDW Plt Count MPV Immature Gran % (Auto) Neut % (Auto) Lymph % (Auto) [place] % (Auto) Eos % (Auto) Baso % (Auto) Lymph # (Auto) [place] # (Auto) Eos # (Auto) Baso # (Auto) Abs Immat Gran (auto) Absolute Neuts (auto) Absolute Nucleated RBC Nucleated RBC % (auto) Anion Gap Estim Creat Clear Calc Estimated GFR POC Glucose 116 H 205 H Fasting Glucose Calcium COVID-19 ([facility]) Negative COVID-19 Clin Com See Note 11/11/21 11/12/21 11/12/21 19:12 03:13 05:48 MCV 93.8 MCH 29.3 MCHC 31.2 RDW 13.1 Plt Count 185 MPV 10.5 Immature Gran % (Auto) 0.8 H Neut % (Auto) 77.9 H Lymph % (Auto) 13.2 L [place] % (Auto) 7.8 Eos % (Auto) 0.1 Baso % (Auto) 0.2 Lymph # (Auto) 1.3 [place] # (Auto) 0.7 Eos # (Auto) 0.0 Baso # (Auto) 0.0 Abs Immat Gran (auto) 0.08 H Absolute Neuts (auto) 7.4 Absolute Nucleated RBC 0.000 Nucleated RBC % (auto) 0.0 Anion Gap Estim Creat Clear Calc Estimated GFR POC Glucose 303 H 197 H Fasting Glucose Calcium COVID-19 ([facility]) COVID-19 Clin Com 11/12/21 11/12/21 05:48 08:38 MCV MCH MCHC RDW Plt Count MPV Immature Gran % (Auto) Neut % (Auto) Lymph % (Auto) [place] % (Auto) Eos % (Auto) Baso % (Auto) Lymph # (Auto) [place] # (Auto) Eos # (Auto) Baso # (Auto) Abs Immat Gran (auto) Absolute Neuts (auto) Absolute Nucleated RBC Nucleated RBC % (auto) Anion Gap 12 Estim Creat Clear Calc 40.9 Estimated GFR 39 POC Glucose 142 H Fasting Glucose 189 H Calcium 8.0 L D COVID-19 ([facility]) COVID-19 Clin Com Assessment and Plan (1) Status post total knee replacement, left: Status: Acute Plan 71F admitted for elective left tka left tka pod1 management per orthopedicas CAD s/p stent statin, asa (high dose for dvt prophylaxis) COPD continue breo, nebs prn DM hold orals insulin GERD PPI HTN metoprolol appears medically stable will sign off for now, please recall as needed Quality Stroke Does the patient have a stroke diagnosis?: No VTE Prior VTE?: No VTE Risk Level:: Surgical - very high VTE Device Contraindication: N/A - Device Ordered VTE Drug Contraindication: N/A - Med Ordered
[2021-11-12] MEDS: Docusate Sodium 100 MG CAPSULE PO ×2 (09:12→20:34)
[2021-11-12] MEDS: Celecoxib 200 MG CAPSULE PO ×2 (09:12→20:33)
[2021-11-12] MEDS: Ferrous Sulfate 324 MG TABLET.DR PO ×2 (09:12→20:34)
[2021-11-12] MEDS: Cyanocobalamin (Vitamin B-12) 1,000 MCG TABLET 1000 MCG PO (09:12)
[2021-11-12] MEDS: oxyCODONE HCl ER 10 MG TAB.ER.12H PO ×2 (09:13→20:34)
--- NOTE | 2021-11-12 09:28 | HO.POSTANES ---
Post Anesthesia Evaluation Post Anesthesia Evaluation Vital Signs: Vital Signs Temp Pulse Resp BP Pulse Ox 11/12/21 08:38 71 11/12/21 08:18 71 20 11/12/21 07:24 97.1 F 73 14 123/50 L 94 11/12/21 04:00 97.5 F 73 17 94/48 L 95 11/12/21 00:00 97.5 F 81 17 122/57 L 95 Anesthesia: Spinal and Nerve Block Mental Status: Awake Pain Control: Satisfactory (6/10 pain) Nausea/Vomiting: None Hydration: Adequate Anesthesia-Related Issues: No Anes. Related Issues
--- NOTE | 2021-11-12 09:50 | MHC.CLN ---
NUTRITION INCREASED DIETARY CALORIES. DIET=DIABETIC 1800 KCAL.
[2021-11-12] MEDS: Aspirin 325 MG TABLET PO ×2 (10:33→20:33)
[2021-11-12] MEDS: Metoprolol Tartrate 25 MG TABLET PO (10:33)
[2021-11-12 11:17] LABS: Glucose, Whole Blood 243 mg/dL (60-115)
[2021-11-12] MEDS: Insulin Lispro 100 UNIT/ML 3 ML VIAL SUBCUT (11:45)
--- NOTE | 2021-11-12 12:38 | MHC.CM.PN ---
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
[2021-11-12 16:48] LABS: Glucose, Whole Blood 118 mg/dL (60-115)
[2021-11-12 20:06] LABS: Glucose, Whole Blood 157 mg/dL (60-115)
[2021-11-12] MEDS: Sertraline HCL 50 MG TABLET PO (20:34)
[2021-11-12] MEDS: Atorvastatin Calcium 80 MG TABLET PO (20:34)
[2021-11-12] MEDS: traZODone HCL 50 MG TABLET PO (20:34)
[2021-11-13] VITALS (7 sets, daily range): BP systolic 101–117; BP diastolic 54–72; PULSE 77–109; RESP 17–20; TEMP 36.3–36.9; O2SAT 71–95
[2021-11-13] MEDS: oxyCODONE HCl Immed Release 5 MG TABLET 10 MG PO ×4 (02:06→22:38)
[2021-11-13] MEDS: Omeprazole 20 MG CAPSULE.DR PO ×2 (05:59→16:21)
[2021-11-13] MEDS: Lactated Ringers 1,000 ML 100 ML IVCONT (06:00)
[2021-11-13] MEDS: HYDROmorphone HCl 1 MG/ML SYRINGE 0.25 MG IVPUSH ×3 (06:08→16:20)
[2021-11-13 06:18] LABS: MANUAL DIFF FLAG NO
[2021-11-13 06:22] LABS: Basophils Percent Auto 0.3 % (0-2); Eosinophils Percent Auto 0.1 % (0-4); Hematocrit 30.9 % (37.0-47.0); Hemoglobin 9.6 g/dl (12.0-16.0); Imm Gran Abs Auto 0.15 X10*3/uL (0.00-0.03); Imm Gran Pct Auto 1.6 % (0.0-0.4); Lymphocytes Absolute Auto 1.7 X10*3/uL (1.2-4.9); Lymphocytes Percent Auto 17.2 % (20-40); Mean Corpuscular HGB Conc 31.1 g/dl (31.0-35.0); Mean Corpuscular Hemoglobin 28.7 pg (27.0-33.0); Mean Corpuscular Volume 92.2 fL (80.0-98.0); Mean Platelet Volume 10.5 fL (9.4-12.3); Monocytes Absolute Auto 0.6 X10*3/uL (0.1-1.2); Monocytes Percent Auto 6.6 % (2-11); Neutrophils Absolute Auto 7.2 x10*3/uL (2.0-8.3); Neutrophils Percent Auto 74.2 % (45-73); Platelet Count 174 X10*3/uL (160-400); Red Blood Count 3.35 X10*6/uL (4.20-5.50); Red Cell Distribution Width 13.3 % (11.0-16.0); White Blood Count 9.7 X10*3/uL (4.8-10.8)
[2021-11-13 06:41] LABS: Anion Gap 15 (12-20); Blood Urea Nitrogen 30 mg/dL (9-16); Calcium 8.2 mg/dL (8.4-10.2); Carbon Dioxide 24 mmol/L (22-29); Chloride 98 mmol/L (96-108); Creatinine Clr Calc Pharmacy 43.9; Estimated Glomerular Filt Rate 42; Glucose Fasting 124 mg/dL (60-99); Potassium 4.3 mmol/L (3.3-5.1); Sodium 133 mmol/L (135-145)
[2021-11-13 07:40] LABS: Glucose, Whole Blood 131 mg/dL (60-115)
[2021-11-13] MEDS: oxyCODONE HCl ER 10 MG TAB.ER.12H PO ×2 (08:09→20:18)
[2021-11-13] MEDS: Aspirin 325 MG TABLET PO ×2 (08:09→20:18)
[2021-11-13] MEDS: Ferrous Sulfate 324 MG TABLET.DR PO ×2 (08:10→20:36)
[2021-11-13] MEDS: Cyanocobalamin (Vitamin B-12) 1,000 MCG TABLET 1000 MCG PO (08:10)
[2021-11-13] MEDS: Docusate Sodium 100 MG CAPSULE PO ×2 (08:10→20:18)
[2021-11-13] MEDS: Fluticasone/Vilanterol 200/25 BLST.W.DEV 1 PUFF INHALE (08:10)
[2021-11-13] MEDS: Celecoxib 200 MG CAPSULE PO ×2 (08:10→20:36)
[2021-11-13] MEDS: Metoprolol Tartrate 25 MG TABLET PO (08:11)
--- NOTE | 2021-11-13 09:15 | MHC.CM.PN ---
PDangelo RECOMMENDS SHORT TERM REHAB. SHE PREFERS [facility] AND THE REFERRAL IS NOW PLACED. FACILITY HAS NOT BEEN CONTRACTED WITH PATIENT'S INSURANCE IN THE PAST, SO A REFERRAL IS ALSO PLACED TO CONTRACTED FACILITY, [facility] PATIENT COULD DC ONCE A BED OFFER AND AUTH ARE OBTAINED.
--- NOTE | 2021-11-13 10:58 | PM.PNORT ---
Subjective Subjective Date of Service: 11/13/21 Interval history: POD 2 s/p LT TKA no overnight events has some dizzyness when she gets up working with PT Physical Exam Vital Signs: Vital Signs: Last Vital Signs Temp 98.4 F 11/13/21 07:31 Pulse 109 H 11/13/21 08:24 Resp 20 11/13/21 08:24 BP 111/56 L 11/13/21 07:59 Pulse Ox 93 11/13/21 07:59 BMI result Body Mass Index 36.6 Const: General: cooperative, healthy appearing and no acute distress Resp: Effort & Inspection: normal respiratory effort and able to speak in complete sentences Cardio: Rate: regular rate Peripheral pulses: Peripheral pulses 2+ throughout GI: Palpation (GI): Soft to palpation Skin: General skin exam: no rashes or lesions noted Extrem: Other: incision clean dry and intact. Kohler intact. No erythema or joint effusion. Calf supple nontender. Neurovascularly intact. Procedures Date of Service Date of Service: 11/13/21 Progress Note: A&P Assessment and plan (1) Status post total knee replacement, left: Status: Acute Assessment and Plan: Continue pain mgmnt ASA for dvt ppx PT for LT TKA Dispo planning-Pending rehab placement Fall Risk Details Current Medications: Current Medications Acetaminophen (Acetaminophen 325 Mg Tablet) 650 mg PO Q6H PRN PRN Reason: Pain, Mild (Pain Scale 1-3) Last Admin: 11/12/21 02:29 Dose: 650 mg Documented by: Albuterol Sulfate (Albuterol Sulfate 90 Mcg 8 Gm Inhaler) 2 puff INHALE Q4H PRN PRN Reason: Shortness Of Breath Or Wheezing Albuterol/Ipratropium (Albuterol/Iprat 2.5/0.5mg 3 Ml Ampul.Neb) 3 ml INHALE QID PRN PRN Reason: Shortness Of Breath Or Wheezing Aspirin (Aspirin 325 Mg Tablet) 325 mg PO BID [facility] Last Admin: 11/13/21 08:09 Dose: 325 mg Documented by: Atorvastatin Calcium (Atorvastatin Calcium 80 Mg Tablet) 80 mg PO BEDTIME [facility] Last Admin: 11/12/21 20:34 Dose: 80 mg Documented by: Calcium Carbonate (Calcium Carbonate 500 Mg Tablet) 500 mg PO DAILY [facility] Last Admin: 11/13/21 08:10 Dose: 500 mg Documented by: Celecoxib (Celecoxib 200 Mg Capsule) 200 mg PO BID [facility] Last Admin: 11/13/21 08:10 Dose: 200 mg Documented by: Cyanocobalamin (Cyanocobalamin (Vitamin B-12) 1,000 Mcg Tablet) 1,000 mcg PO DAILY [facility] Last Admin: 11/13/21 08:10 Dose: 1,000 mcg Documented by: Dextrose (Dextrose 50 % 25 Gm/50 Ml Vial) 25 gm IVPUSH Q15M PRN; Protocol PRN Reason: per Hypoglycemia Standing Ord. Docusate Sodium (Docusate Sodium 100 Mg Capsule) 100 mg PO BID [facility] Last Admin: 11/13/21 08:10 Dose: 100 mg Documented by: Ferrous Sulfate (Ferrous Sulfate 324 Mg Tablet.) 324 mg PO BID [facility] Last Admin: 11/13/21 08:10 Dose: 324 mg Documented by: Fluticasone/Vilanterol (Fluticasone/Vilanterol 200/25 Blst.W.Dev) 1 puff INHALE RDAILY [facility] Last Admin: 11/13/21 08:10 Dose: 1 puff Documented by: Glucose (Glucose Gel 15 Gm Gel..Gram.) 15 gm PO Q15M PRN; Protocol PRN Reason: per Hypoglycemia Standing Ord. Hydromorphone HCl (Hydromorphone Hcl 1 Mg/Ml Syringe) 0.25 mg IVPUSH Q3H PRN; Protocol PRN Reason: Pain, Severe (Pain Scale 7-10) Last Admin: 11/13/21 06:08 Dose: 0.25 mg Documented by: Metoprolol Tartrate (Metoprolol Tartrate 25 Mg Tablet) 25 mg PO DAILY [facility]; Protocol Last Admin: 11/13/21 08:11 Dose: 25 mg Documented by: Nitroglycerin (Nitroglycerin 0.4 Mg Tab.Subl) 0.4 mg SUBLINGUAL Q5MX3 PRN PRN Reason: Chest Pain Omeprazole (Omeprazole 20 Mg Capsule.) 20 mg PO BID@0630,1630 [facility] Last Admin: 11/13/21 05:59 Dose: 20 mg Documented by: Ondansetron HCl (Ondansetron Hcl 4 Mg/2 Ml Vial) 4 mg IVPUSH Q8H PRN PRN Reason: Nausea and Vomiting Oxycodone HCl (Oxycodone Hcl Er 10 Mg Tab.Er.12h) 10 mg PO BID [facility] Last Admin: 11/13/21 08:09 Dose: 10 mg Documented by: Oxycodone HCl (Oxycodone Hcl Immed Release 5 Mg Tablet) 10 mg PO Q4H PRN PRN Reason: Pain, Moderate (Pain Scale 4-6 Last Admin: 11/13/21 08:09 Dose: 10 mg Documented by: Sertraline HCl (Sertraline Hcl 50 Mg Tablet) 50 mg PO BEDTIME [facility] Last Admin: 11/12/21 20:34 Dose: 50 mg Documented by: Sodium Chloride (0.9 % Sodium Chloride Flush 3 Ml Syringe) 3 ml IVFLUSH QSHIFT [facility] Last Admin: 11/13/21 08:10 Dose: Not Given Documented by: Trazodone HCl (Trazodone Hcl 50 Mg Tablet) 50 mg PO BEDTIME [facility] Last Admin: 11/12/21 20:34 Dose: 50 mg Documented by: Time Spent With Patient Time: Total time spent is greater than 50% in coordination of care (as documented) at patient's floor/unit and/or counseling patient: Time with patient: less than 15 minutes Quality Stroke Does the patient have a stroke diagnosis?: No VTE Prior VTE?: No VTE Risk Level:: Surgical - very high VTE Device Contraindication: N/A - Device Ordered VTE Drug Contraindication: N/A - Med Ordered
[2021-11-13 11:43] LABS: Glucose, Whole Blood 166 mg/dL (60-115)
--- NOTE | 2021-11-13 13:09 | MHC.CM.PN ---
PATIENT IS AGREEABLE TO THE REFERRAL TO [facility]. FACILITY IS OFFERING A BED AND SHE ACCEPTS REQUEST PLACED FOR FACILITY TO ATTEMPT AUTH.
--- NOTE | 2021-11-13 13:50 | P.DS_ITS ---
DS: Providers Provider Date of Service: 11/13/21 Date of admission: 11/11/21 10:16 Primary care physician: Etsrella Brunner MD Consults: 11/11/21 15:49 Consult to Hospitalist Routine Consulting Provider: Hospitalist Reason For Exam: diabetes, COPD, CAD DS: Diagnosis Discharge Diagnosis (1) Status post total knee replacement, left: Status: Acute DS: Summary Hospital Course Hospital Course: The patient underwent a successful left total knee arthroplasty, was transferred to PACU and then to the floor to recover. During their stay, their vitals were stable, afebrile at 97.3. Labs were unremarkable, H/H 9.6/30.9. POD 1 she was started on ASA for DVT ppx, they also received PT services twice a day. Prior to discharge, their dressing was change, incision clean dry and intact, new Aquacel dressing applied and the plan was to be discharged to STR Time Spent with Patient Time attestation: Total time spent providing and/or coordinating discharge services: Discharge coordination time: Less than 30 minutes Quality: Stroke Does the patient have a stroke diagnosis?: No Physical Exam Vital Signs: Vital Signs: Last Vital Signs Temp 97.3 F 11/13/21 11:36 Pulse 77 11/13/21 11:36 Resp 19 11/13/21 11:36 BP 101/54 L 11/13/21 11:36 Pulse Ox 95 11/13/21 11:36 BMI result Body Mass Index 36.6 Const: General: cooperative, healthy appearing and no acute distress Resp: Effort & Inspection: normal respiratory effort and able to speak in complete sentences Cardio: Rate: regular rate Peripheral pulses: Peripheral pulses 2+ throughout GI: Palpation (GI): Soft to palpation Skin: General skin exam: no rashes or lesions noted Extrem: Other: incision clean dry and intact. Hart intact. No erythema or joint effusion. Calf supple nontender. Neurovascularly intact. DS: Data Data Completed and Pending Pending studies at discharge: Pending at discharge 11/11/21 12:33 Surgical [PTH] Routine Labs on day of discharge: Laboratory Results - last 24 hr 11/12/21 11/12/21 11/13/21 16:08 19:41 05:51 WBC 9.7 RBC 3.35 L Hgb 9.6 L Hct 30.9 L MCV 92.2 MCH 28.7 MCHC 31.1 RDW 13.3 Plt Count 174 MPV 10.5 Immature Gran % (Auto) 1.6 H Neut % (Auto) 74.2 H Lymph % (Auto) 17.2 L Brule % (Auto) 6.6 Eos % (Auto) 0.1 Baso % (Auto) 0.3 Lymph # (Auto) 1.7 Brule # (Auto) 0.6 Eos # (Auto) 0.0 Baso # (Auto) 0.0 Abs Immat Gran (auto) 0.15 H Absolute Neuts (auto) 7.2 Absolute Nucleated RBC 0.000 Nucleated RBC % (auto) 0.0 Sodium Potassium Chloride Carbon Dioxide Anion Gap BUN Creatinine Estim Creat Clear Calc Estimated GFR POC Glucose 118 H 157 H Fasting Glucose Calcium 11/13/21 11/13/21 11/13/21 05:51 07:28 11:34 WBC RBC Hgb Hct MCV MCH MCHC RDW Plt Count MPV Immature Gran % (Auto) Neut % (Auto) Lymph % (Auto) Brule % (Auto) Eos % (Auto) Baso % (Auto) Lymph # (Auto) Brule # (Auto) Eos # (Auto) Baso # (Auto) Abs Immat Gran (auto) Absolute Neuts (auto) Absolute Nucleated RBC Nucleated RBC % (auto) Sodium 133 L Potassium 4.3 Chloride 98 Carbon Dioxide 24 Anion Gap 15 BUN 30 H Creatinine 1.25 Estim Creat Clear Calc 43.9 Estimated GFR 42 POC Glucose 131 H 166 H Fasting Glucose 124 H Calcium 8.2 L Discharge Plan Discharge Patient Disposition: [facility] Discharge Diagnosis: lt tka Referrals: Adrian Mcdowell [Outside] - 1 Week Bebe Leblanc PA-C [Physician Enrollment Manager] - 2 Weeks (11/27/21 1:30 [facility] [place] [facility] Bebe Leblanc PA-C PO-LT TKA 11/11/21 [place]) Discharge Medications: New acetaminophen 325 mg Tablet 650 mg PO Q6H PRN (Reason: Pain, Mild (Pain Scale 1-3)) 30 Days Qty: 240 0RF aspirin 325 mg Tablet 325 mg PO BID 42 Days Qty: 84 0RF Rx Instructions: asa for dvt ppx x 42 days celecoxib 200 mg Capsule 200 mg PO BID 30 Days Qty: 60 0RF docusate sodium 100 mg Capsule 100 mg PO BID 30 Days Qty: 60 0RF oxycodone 5 mg tablet 5 mg PO Q4H PRN (Reason: pain (scale score 4-6)) 7 Days Qty: 42 0RF oxycodone 5 mg tablet 5 mg PO Q4H PRN (Reason: pain (scale score 4-6)) 7 Days Qty: 42 0RF oxycodone 5 mg tablet 5 mg PO Q4H PRN (Reason: pain (scale score 4-6)) 7 Days Qty: 42 0RF Continued (DME) juanita Misc See Rx Instructions .MEDSUPPLY Qty: 1 0RF Rx Instructions: Folding Front wheeled walker atorvastatin 80 mg tablet 1 tab PO BEDTIME 0RF Breo Ellipta 200-25 mcg/dose blister with device 1 puff inhalation DAILY 0RF ipratropium-albuterol 0.5 mg-3 mg(2.5 mg base)/3 mL solution for nebulization 1 amp inhalation QID PRN (Reason: Shortness Of Breath Or Wheezing) 0RF trazodone 50 mg tablet 1 tab PO BEDTIME 0RF oxybutynin chloride 10 mg tablet extended release 24hr 1 tab PO .DAILY@NOON 0RF cyanocobalamin (vitamin B-12) 1,000 mcg tablet 1 tab PO QAM 0RF pantoprazole 40 mg tablet,delayed release (DR/EC) 1 tab PO BID 0RF ferrous sulfate 325 mg (65 mg iron) tablet 1 tab PO BID 0RF metformin 1,000 mg tablet 1 tab PO BID 0RF nitroglycerin 0.4 mg tablet, sublingual 1 tab sublingual NEEDED PRN (Reason: Chest Pain) 0RF sertraline 50 mg tablet 1 tab PO BEDTIME 0RF metoprolol tartrate 25 mg tablet 1 tab PO DAILY 0RF calcium carbonate 500 mg calcium (1,250 mg) tablet 1 tab PO QAM 0RF albuterol sulfate [ProAir HFA] 90 mcg/actuation HFA aerosol inhaler 2 puff inhalation Q4-6H PRN (Reason: Shortness Of Breath Or Wheezing) 0RF glipizide 5 mg tablet 5 mg PO DAILY 0RF Discontinued aspirin 81 mg tablet,delayed release (DR/EC) 1 tab PO QAM 0RF Discharge Orders: Discharge Order (Routine); Ordered 11/14/21 Ordered By: Lauren K Miranda Diet: regular diet Activity on Discharge: Use cane or walker Stand Alone Forms: Patient Portal Discharge page Care Plan Goals: Restore function of joint Health Concerns: none Plan of Treatment: * Physical Therapy for Total knee arthroplasty: gait training, ROM 0-12, quad strength * Limit stair climbing * No showering, no tub bath-keep dressing clean, dry and intact * No driving x6 weeks * Continue Aspirin twice a day x 4 weeks * [place] up [place] [facility] [place] Assessment: Physical Therapy Pain management DVT prophylaxis Discharge Date/Time: 11/14/21 11:35
[2021-11-13] MEDS: 0.9 % Sodium Chloride Flush 3 ML SYRINGE IVFLUSH ×2 (16:23→20:19)
[2021-11-13 17:27] LABS: Glucose, Whole Blood 177 mg/dL (60-115)
[2021-11-13] MEDS: Atorvastatin Calcium 80 MG TABLET PO (20:18)
[2021-11-13] MEDS: traZODone HCL 50 MG TABLET PO (20:18)
[2021-11-13] MEDS: Sertraline HCL 50 MG TABLET PO (20:37)
[2021-11-13 20:45] LABS: Glucose, Whole Blood 185 mg/dL (60-115)
[2021-11-14] VITALS: BP 135/59; PULSE 83; RESP 17; TEMP 36.3; O2SAT 94
[2021-11-14 04:00] VITALS: BP 133/50; PULSE 85; RESP 17; TEMP 36.2; O2SAT 94
[2021-11-14] MEDS: oxyCODONE HCl Immed Release 5 MG TABLET 10 MG PO ×2 (05:40→10:33)
[2021-11-14] MEDS: Omeprazole 20 MG CAPSULE.DR PO (05:40)
[2021-11-14 06:26] LABS: MANUAL DIFF FLAG NO
[2021-11-14 06:33] LABS: Basophils Percent Auto 0.2 % (0-2); Hematocrit 26.4 % (37.0-47.0); Hemoglobin 8.2 g/dl (12.0-16.0); Imm Gran Abs Auto 0.09 X10*3/uL (0.00-0.03); Imm Gran Pct Auto 1.1 % (0.0-0.4); Lymphocytes Percent Auto 12.2 % (20-40); Mean Corpuscular HGB Conc 31.1 g/dl (31.0-35.0); Mean Corpuscular Hemoglobin 28.8 pg (27.0-33.0); Mean Corpuscular Volume 92.6 fL (80.0-98.0); Mean Platelet Volume 10.4 fL (9.4-12.3); Monocytes Absolute Auto 0.5 X10*3/uL (0.1-1.2); Monocytes Percent Auto 5.9 % (2-11); Neutrophils Absolute Auto 6.8 x10*3/uL (2.0-8.3); Neutrophils Percent Auto 80.6 % (45-73); Platelet Count 143 X10*3/uL (160-400); Red Blood Count 2.85 X10*6/uL (4.20-5.50); Red Cell Distribution Width 13.4 % (11.0-16.0); White Blood Count 8.4 X10*3/uL (4.8-10.8)
[2021-11-14 06:44] LABS: Anion Gap 12 (12-20); Blood Urea Nitrogen 25 mg/dL (9-16); Carbon Dioxide 28 mmol/L (22-29); Chloride 100 mmol/L (96-108); Creatinine Clr Calc Pharmacy 54.2; Estimated Glomerular Filt Rate 54; Glucose Fasting 145 mg/dL (60-99); Potassium 4.7 mmol/L (3.3-5.1); Sodium 135 mmol/L (135-145)
--- NOTE | 2021-11-14 07:17 | P.DS_ITS ---
DS: Providers Provider Date of Service: 11/14/21 Date of admission: 11/11/21 10:16 Primary care physician: Estrella Brunner MD Consults: 11/11/21 15:49 Consult to Hospitalist Routine Consulting Provider: Hospitalist Reason For Exam: diabetes, COPD, CAD DS: Diagnosis Discharge Diagnosis (1) Status post total knee replacement, left: Status: Acute DS: Summary Hospital Course Hospital Course: The patient underwent a successful left total knee arthroplasty, was transferred to PACU and then to the floor to recover. During their stay, their vitals were stable, afebrile at 97.3. Labs were unremarkable, H/H 9.6/30.9. POD 1 she was started on ASA for DVT ppx, they also received PT services twice a day. Prior to discharge, their dressing was change, incision clean dry and intact, new Aquacel dressing applied and the plan was to be discharged to STR Time Spent with Patient Time attestation: Total time spent providing and/or coordinating discharge services: Discharge coordination time: Less than 30 minutes Quality: Stroke Does the patient have a stroke diagnosis?: No Physical Exam Vital Signs: Vital Signs: Last Vital Signs Temp 97.2 F 11/14/21 04:00 Pulse 85 11/14/21 04:00 Resp 17 11/14/21 04:00 BP 133/50 L 11/14/21 04:00 Pulse Ox 94 11/14/21 04:00 BMI result Body Mass Index 36.6 Const: General: cooperative, healthy appearing and no acute distress Resp: Effort & Inspection: normal respiratory effort and able to speak in complete sentences Cardio: Rate: regular rate Peripheral pulses: Peripheral pulses 2+ throughout GI: Palpation (GI): Soft to palpation Skin: Lesions: no lesions Rashes: no rashes Extrem: Other: Left knee yoni intact. No erythema or drainage. Patient is able to ambulate. Sensation intact. Pedal pulse intact. New Aquacel dressing applied. DS: Data Data Completed and Pending Completed studies during hospitalization [Text1]: Pending at discharge 11/11/21 12:33 Surgical [PTH] Routine Labs on day of discharge: Laboratory Results - last 24 hr 11/13/21 11/13/21 11/13/21 07:28 11:34 17:24 WBC RBC Hgb Hct MCV MCH MCHC RDW Plt Count MPV Immature Gran % (Auto) Neut % (Auto) Lymph % (Auto) Door % (Auto) Eos % (Auto) Baso % (Auto) Lymph # (Auto) Door # (Auto) Eos # (Auto) Baso # (Auto) Abs Immat Gran (auto) Absolute Neuts (auto) Absolute Nucleated RBC Nucleated RBC % (auto) Sodium Potassium Chloride Carbon Dioxide Anion Gap BUN Creatinine Estim Creat Clear Calc Estimated GFR POC Glucose 131 H 166 H 177 H Fasting Glucose Calcium 11/13/21 11/14/21 11/14/21 20:37 05:27 05:27 WBC 8.4 RBC 2.85 L Hgb 8.2 L Hct 26.4 L MCV 92.6 MCH 28.8 MCHC 31.1 RDW 13.4 Plt Count 143 L MPV 10.4 Immature Gran % (Auto) 1.1 H Neut % (Auto) 80.6 H Lymph % (Auto) 12.2 L Door % (Auto) 5.9 Eos % (Auto) 0.0 Baso % (Auto) 0.2 Lymph # (Auto) 1.0 L Door # (Auto) 0.5 Eos # (Auto) 0.0 Baso # (Auto) 0.0 Abs Immat Gran (auto) 0.09 H Absolute Neuts (auto) 6.8 Absolute Nucleated RBC 0.000 Nucleated RBC % (auto) 0.0 Sodium 135 Potassium 4.7 Chloride 100 Carbon Dioxide 28 Anion Gap 12 BUN 25 H Creatinine 1.01 Estim Creat Clear Calc 54.2 Estimated GFR 54 POC Glucose 185 H Fasting Glucose 145 H Calcium 8.0 L Discharge Plan Discharge Patient Disposition: Home Health Service Discharge Diagnosis: lt tka Referrals: Bebe Leblanc PA-C [Physician Profile Shaper Operator] - 2 Weeks (11/27/21 1:30 [facility] [place] [facility] Bebe Leblanc PA-C PO-LT TKA 11/11/21 [place]) Discharge Medications: New acetaminophen 325 mg Tablet 650 mg PO Q6H PRN (Reason: Pain, Mild (Pain Scale 1-3)) 30 Days Qty: 240 0RF aspirin 325 mg Tablet 325 mg PO BID 42 Days Qty: 84 0RF Rx Instructions: asa for dvt ppx x 42 days celecoxib 200 mg Capsule 200 mg PO BID 30 Days Qty: 60 0RF oxycodone 5 mg Tablet 10 mg PO Q4H PRN (Reason: Pain, Moderate (Pain Scale 4-6) 7 Days Qty: 42 0RF docusate sodium 100 mg Capsule 100 mg PO BID 30 Days Qty: 60 0RF Continued (DME) walker Misc See Rx Instructions .MEDSUPPLY Qty: 1 0RF Rx Instructions: Folding Front wheeled walker atorvastatin 80 mg tablet 1 tab PO BEDTIME 0RF Breo Ellipta 200-25 mcg/dose blister with device 1 puff inhalation DAILY 0RF ipratropium-albuterol 0.5 mg-3 mg(2.5 mg base)/3 mL solution for nebulization 1 amp inhalation QID PRN (Reason: Shortness Of Breath Or Wheezing) 0RF trazodone 50 mg tablet 1 tab PO BEDTIME 0RF oxybutynin chloride 10 mg tablet extended release 24hr 1 tab PO .DAILY@NOON 0RF cyanocobalamin (vitamin B-12) 1,000 mcg tablet 1 tab PO QAM 0RF pantoprazole 40 mg tablet,delayed release (DR/EC) 1 tab PO BID 0RF ferrous sulfate 325 mg (65 mg iron) tablet 1 tab PO BID 0RF metformin 1,000 mg tablet 1 tab PO BID 0RF nitroglycerin 0.4 mg tablet, sublingual 1 tab sublingual NEEDED PRN (Reason: Chest Pain) 0RF sertraline 50 mg tablet 1 tab PO BEDTIME 0RF metoprolol tartrate 25 mg tablet 1 tab PO DAILY 0RF calcium carbonate 500 mg calcium (1,250 mg) tablet 1 tab PO QAM 0RF albuterol sulfate [ProAir HFA] 90 mcg/actuation HFA aerosol inhaler 2 puff inhalation Q4-6H PRN (Reason: Shortness Of Breath Or Wheezing) 0RF glipizide 5 mg tablet 5 mg PO DAILY 0RF Discontinued aspirin 81 mg tablet,delayed release (DR/EC) 1 tab PO QAM 0RF Discharge Orders: Discharge Order (Routine); Ordered 11/14/21 Ordered By: Lauren Jean Diet: regular diet Activity on Discharge: Use cane or walker Stand Alone Forms: Patient Portal Discharge page Care Plan Goals: Restore function of joint Health Concerns: none Plan of Treatment: * Physical Therapy for Total knee arthroplasty: gait training, ROM 0-12, quad strength * Limit stair climbing * No showering, no tub bath-keep dressing clean, dry and intact * No driving x6 weeks * Continue Aspirin twice a day x 4 weeks * Follow up with [facility] [place] [facility] in 2 weeks Assessment: Physical Therapy Pain management DVT prophylaxis
[2021-11-14 07:33] LABS: Glucose, Whole Blood 143 mg/dL (60-115)
[2021-11-14 07:35] VITALS: BP 111/56; PULSE 89; RESP 19; TEMP 36.2; O2SAT 97
[2021-11-14] MEDS: Fluticasone/Vilanterol 200/25 BLST.W.DEV 1 PUFF INHALE (07:44)
[2021-11-14 07:46] VITALS: PULSE 109; RESP 22; O2SAT 91
[2021-11-14 08:09] VITALS: BP 111/56; PULSE 87; O2SAT 94
[2021-11-14] MEDS: Aspirin 325 MG TABLET PO (08:17)
[2021-11-14] MEDS: Ferrous Sulfate 324 MG TABLET.DR PO (08:18)
[2021-11-14] MEDS: Metoprolol Tartrate 25 MG TABLET PO (08:18)
[2021-11-14] MEDS: 0.9 % Sodium Chloride Flush 3 ML SYRINGE IVFLUSH (08:18)
[2021-11-14] MEDS: oxyCODONE HCl ER 10 MG TAB.ER.12H PO (08:18)
[2021-11-14] MEDS: Docusate Sodium 100 MG CAPSULE PO (08:18)
[2021-11-14] MEDS: Celecoxib 200 MG CAPSULE PO (08:18)
[2021-11-14] MEDS: Cyanocobalamin (Vitamin B-12) 1,000 MCG TABLET 1000 MCG PO (08:18)
--- NOTE | 2021-11-14 09:54 | MHC.CM.PN ---
PATIENT TO TRANSFER TO [facility] FOR 1100. [facility] REQUESTED. PATIENT TO INFORM DAUGHTER OF PLAN. RN AND UNIT AWARE OF PLAN. IMM 11/12 IN CHART
== END 2021-11-14 11:35 | disposition skilled nursing facility (03) | DRG 470 ==
LOC: HO.SSSA 10:19 → HO.S3 14:30
PROVIDERS: Anesthesiology; Physician Assistant; Admitting Provider Orthopaedic Surgery; PCP Student in an Organized Health Care Education/Training Program; Visit Provider Orthopaedic Surgery
PROC: 0SRD0JA Replacement of Left Knee Joint with Synthetic Substitute, Uncemented, Open Approach (ICD-10-PCS; CPT 27447; principal; 2021-11-11 12:00)
DX: M17.12 Unilateral primary osteoarthritis, left knee (principal); K21.9 Gastro-esophageal reflux disease without esophagitis; I25.10 Atherosclerotic heart disease of native coronary artery without angina pectoris; J44.9 Chronic obstructive pulmonary disease, unspecified; E11.9 Type 2 diabetes mellitus without complications; I10 Essential (primary) hypertension; Z95.5 Presence of coronary angioplasty implant and graft; Z20.822 Contact with and (suspected) exposure to COVID-19; Z87.891 Personal history of nicotine dependence; Z79.84 Long term (current) use of oral hypoglycemic drugs; Z79.899 Other long term (current) drug therapy
CPT/HCPCS: 36415; 73560; 80048; 82947; 85025; 86850; 86900; 86901; 87635; 87640; 87641; 88305; 88311; 93005; 94640; 97110; 97116; 97162; 97530; C1776; J0690; J1100; J1170; J2250; J2370; J2405; J3010; J3370

== ENCOUNTER 2021-11-18 06:02 | Outpatient (REF) | payer MEDICARE, OTHER, SELFPAY ==
[2021-11-18 06:07] LABS: MANUAL DIFF FLAG NO
[2021-11-18 06:28] LABS: Basophils Percent Auto 0.2 % (0-2); Hematocrit 26.5 % (37.0-47.0); Hemoglobin 8.3 g/dl (12.0-16.0); Imm Gran Abs Auto 0.41 X10*3/uL (0.00-0.03); Imm Gran Pct Auto 4.9 % (0.0-0.4); Lymphocytes Absolute Auto 2.5 X10*3/uL (1.2-4.9); Lymphocytes Percent Auto 29.4 % (20-40); Mean Corpuscular HGB Conc 31.3 g/dl (31.0-35.0); Mean Corpuscular Hemoglobin 29.3 pg (27.0-33.0); Mean Corpuscular Volume 93.6 fL (80.0-98.0); Mean Platelet Volume 9.6 fL (9.4-12.3); Monocytes Absolute Auto 0.7 X10*3/uL (0.1-1.2); Monocytes Percent Auto 8.4 % (2-11); NRBC Pct Auto 0.4 /100WBC (0.0-0.2); Neutrophils Absolute Auto 4.8 x10*3/uL (2.0-8.3); Neutrophils Percent Auto 57.1 % (45-73); Platelet Count 249 X10*3/uL (160-400); Red Blood Count 2.83 X10*6/uL (4.20-5.50); White Blood Count 8.4 X10*3/uL (4.8-10.8)
[2021-11-18 06:51] LABS: Alanine Aminotransferase 22 U/L (0-31); Albumin Level 2.9 g/dL (3.5-5.0); Alkaline Phosphatase 105 U/L (39-117); Anion Gap 13 (12-20); Aspartate Amino Transferase 18 U/L (5-31); Bilirubin Total 0.3 mg/dL (0.0-1.0); Blood Urea Nitrogen 31 mg/dL (9-16); Calcium 8.3 mg/dL (8.4-10.2); Carbon Dioxide 29 mmol/L (22-29); Chloride 104 mmol/L (96-108); Estimated Glomerular Filt Rate 47; Glucose Random 114 mg/dL (60-115); Potassium 5.2 mmol/L (3.3-5.1); Sodium 141 mmol/L (135-145); Total Protein 5.1 g/dL (6.5-8.0)
== END 2021-11-18 06:03 | disposition home or self-care (01) ==
LOC: HO.MMNH1L 06:02
PROVIDERS: Visit Provider Family Medicine
DX: I10 Essential (primary) hypertension (principal)
CPT/HCPCS: 36415; 80053; 85025

== ENCOUNTER 2021-11-24 00:37 | Outpatient (REF) | payer MEDICARE, OTHER, SELFPAY ==
[2021-11-24 07:26] LABS: Hematocrit 30.7 % (37.0-47.0); Hemoglobin 9.2 g/dl (12.0-16.0); Mean Corpuscular Hemoglobin 29.3 pg (27.0-33.0); Mean Corpuscular Volume 97.8 fL (80.0-98.0); Mean Platelet Volume 9.5 fL (9.4-12.3); Platelet Count 279 X10*3/uL (160-400); Red Blood Count 3.14 X10*6/uL (4.20-5.50); White Blood Count 10.4 X10*3/uL (4.8-10.8)
[2021-11-24 08:30] LABS: Anion Gap 16 (12-20); Blood Urea Nitrogen 17 mg/dL (9-16); Calcium 8.7 mg/dL (8.4-10.2); Carbon Dioxide 21 mmol/L (22-29); Chloride 107 mmol/L (96-108); Estimated Glomerular Filt Rate 55; Glucose Random 53 mg/dL (60-115); Potassium 5.1 mmol/L (3.3-5.1); Sodium 139 mmol/L (135-145)
== END 2021-11-24 00:38 | disposition home or self-care (01) ==
LOC: HO.MMNH1L 00:37
PROVIDERS: Visit Provider Family Medicine
DX: I10 Essential (primary) hypertension (principal)
CPT/HCPCS: 36415; 80048; 85027

== ENCOUNTER → 2021-11-27 13:31 | Outpatient (BNVA) | payer MEDICARE, OTHER, SELFPAY | PROVIDERS: PCP Student in an Organized Health Care Education/Training Program; Visit Provider Physician Assistant | DX: Z47.1 Aftercare following joint replacement surgery (principal); Z96.652 Presence of left artificial knee joint | CPT/HCPCS: 99212 ==

== ENCOUNTER → 2021-12-11 12:38 | Outpatient (BNVA) | payer MEDICARE, OTHER, SELFPAY | PROVIDERS: PCP Student in an Organized Health Care Education/Training Program; Visit Provider Physician Assistant | DX: M25.462 Effusion, left knee (principal); I25.10 Atherosclerotic heart disease of native coronary artery without angina pectoris; I25.2 Old myocardial infarction; E11.9 Type 2 diabetes mellitus without complications; Z87.891 Personal history of nicotine dependence; Z96.653 Presence of artificial knee joint, bilateral | CPT/HCPCS: 99212 ==

== ENCOUNTER → 2021-12-18 10:17 | Outpatient (BNVA) | payer MEDICARE, OTHER, SELFPAY | PROVIDERS: PCP Student in an Organized Health Care Education/Training Program; Visit Provider Physician Assistant | DX: Z47.1 Aftercare following joint replacement surgery (principal); Z96.652 Presence of left artificial knee joint | CPT/HCPCS: 99212 ==

== ENCOUNTER 2021-12-19 00:19 | Inpatient (IN) | payer MEDICARE, OTHER, SELFPAY ==
[2021-12-19] VITALS (41 sets, daily range): BP systolic 93–179; BP diastolic 32–80; PULSE 69–150; RESP 13–30; TEMP 32–38.4; O2SAT 88–99; BMI 39.6; BMI 38.5
--- NOTE | ~2021-12-19 | XR_ITS ---
EXAMINATION: XR CHEST CLINICAL INFORMATION: COPD. Reassess COMPARISON: Chest 12/19/2021 TECHNIQUE: Frontal view of the chest was obtained. FINDINGS: The lungs are well-expanded and clear of acute process. Heart size and pulmonary vascularity is normal. No gross bony abnormality seen. XR/XR chest 1V IMPRESSION: No acute process seen. Previously seen haziness in both lung bases has resolved.
--- NOTE | ~2021-12-19 | XR_ITS ---
EXAMINATION: XR CHEST CLINICAL INFORMATION: Endotracheal tube placement COMPARISON: 12/02/2019 TECHNIQUE: Frontal view of the chest was obtained. XR/XR chest 1V FINDINGS/IMPRESSION: Endotracheal tube terminates 4.0 cm above the kar. Mild cardiomegaly. Pulmonary venous congestion. Mild interstitial pulmonary edema. Small bilateral pleural effusions and accompanying atelectasis. No pneumothorax. No acute osseous abnormalities.
--- NOTE | ~2021-12-19 | XR_ITS ---
EXAMINATION: XR CHEST CLINICAL INFORMATION: Status post TLC placement COMPARISON: December 19, 2021 and December 02, 2019 TECHNIQUE: AP portable view of the chest was obtained. FINDINGS: Endotracheal tube tip is seen approximately 5 cm above the kar. Enteric catheter seen traversing below the diaphragm into the stomach. Left internal jugular central venous catheter seen with tip in the distal superior vena cava. No pneumothorax identified. There is hazy density about both lung bases likely related to atelectasis and small pleural effusions. Heart normal size. No evidence of airspace edema. No pneumothorax. XR/XR chest 1V IMPRESSION: Support catheters in place. Bibasilar disease with probable pleural effusions.
--- NOTE | 2021-12-19 00:27 | ECG_ITS ---
Test Reason : SOB Blood Pressure : / mmHG Vent. Rate : 133 BPM Atrial Rate : 133 BPM P-R Int : 144 ms QRS Dur : 116 ms QT Int : 348 ms P-R-T Axes : 000 057 044 degrees QTc Int : 517 ms Sinus tachycardia Low voltage QRS Borderline ECG When compared with ECG of 11-NOV-2021 10:21, QRS duration has increased T wave amplitude has increased in Anterior leads Referred By: Merari Shahid Electronically Signed By:Fabian Larry
--- NOTE | 2021-12-19 00:29 | ED_ITS ---
HPI - SOB/Dyspnea General Chief Complaint: Dyspnea Stated Complaint: sob Time Seen by Provider: 12/19/21 00:21 Source: patient and EMS Mode of arrival: EMS Limitations: no limitations History of Present Illness HPI Narrative: Patient comes to the emergency room complaining of shortness of breath. Yesterday morning, she was prescribed azithromycin and Solu-Medrol. Prior to arrival patient's use nebulization treatments without any relief. On arrival to the patient's residence, oxygen saturation was 95% on room air. Patient was put on couple of L for symptomatic relief. On arrival to the emergency room, oxygen saturation 95% on room air. Related Data Home Medications Medication Instructions Recorded Confirmed atorvastatin 80 mg tablet 1 tab PO BEDTIME 08/12/20 11/06/21 cyanocobalamin (vitamin B-12) 1 tab PO QAM 08/12/20 11/06/21 1,000 mcg tablet ferrous sulfate 325 mg (65 mg 1 tab PO BID 08/12/20 11/06/21 iron) tablet fluticasone furoate 200 1 puff INHALATION DAILY 08/12/20 11/06/21 mcg-vilanterol 25 mcg/dose inhalation powder (Breo Ellipta) ipratropium 0.5 mg-albuterol 3 mg 1 amp INHALATION QID PRN 08/12/20 11/06/21 (2.5 mg base)/3 mL nebulization soln metformin 1,000 mg tablet 1 tab PO BID 08/12/20 11/06/21 metoprolol tartrate 25 mg tablet 1 tab PO DAILY 08/12/20 11/06/21 nitroglycerin 0.4 mg sublingual 1 tab SUBLINGUAL NEEDED PRN 08/12/20 11/06/21 tablet oxybutynin chloride 10 mg 1 tab PO .DAILY@NOON 08/12/20 11/06/21 tablet,extended release 24 hr pantoprazole 40 mg tablet,delayed 1 tab PO BID 08/12/20 11/11/21 release sertraline 50 mg tablet 1 tab PO BEDTIME 08/12/20 11/06/21 trazodone 50 mg tablet 1 tab PO BEDTIME 08/12/20 11/06/21 glipizide 5 mg tablet 5 mg PO DAILY 09/30/21 11/06/21 albuterol sulfate 90 mcg/actuation 2 puff INHALATION Q4-6H PRN 10/31/21 11/06/21 aerosol inhaler (ProAir HFA) calcium carbonate 500 mg calcium 1 tab PO QAM 10/31/21 11/06/21 (1,250 mg) tablet Previous Rx's Medication Instructions Recorded walker #1 ea 10/13/21 acetaminophen 325 mg tablet 650 mg PO Q6H PRN 30 Days #240 tab 11/14/21 aspirin 325 mg tablet 325 mg PO BID 42 Days #84 tab 11/14/21 celecoxib 200 mg capsule 200 mg PO BID 30 Days #60 cap 11/14/21 docusate sodium 100 mg capsule 100 mg PO BID 30 Days #60 cap 11/14/21 oxycodone 5 mg tablet 5 mg PO Q4H PRN 7 Days #42 tab 11/14/21 oxycodone 5 mg tablet 5 mg PO Q4H PRN 7 Days #42 tab 11/14/21 oxycodone 5 mg tablet 5 mg PO Q4H PRN 7 Days #42 tab 11/14/21 fluconazole 200 mg tablet 200 mg PO DAILY 10 Days #10 tab 12/11/21 sulfamethoxazole 800 1 tab PO BID 10 Days #20 tab 12/11/21 mg-trimethoprim 160 mg tablet (Bactrim DS) Allergies Allergy/AdvReac Type Severity Reaction Status Date / Time No Known Allergies Allergy Verified 12/18/21 10:25 Pain Med Sensitivity Allergy Unknown none Uncoded 12/18/21 10:25 Review of Systems Review of Systems: Constitutional : No Weight loss, No Fever, No Chills, No Night Sweats, No Fatigue, No Malaise ENT/Mouth : No Hearing loss, No Ear Pain, No Nasal Congestion, No Sinus Pain, No Hoarseness, No sore throat, No Rhinorrhea, No Swallowing Difficulty Eyes: No Eye Pain, No Swelling, No Redness, No Foreign Body, No Discharge, No Vision Changes Cardiovascular : No Chest Pain, No SOB, No Dyspnea on Exertion, No Orthopnea, No Edema, No Palpitations Respiratory : Complaining of cough, wheezing, shortness of breath Gastrointestinal : No Nausea, No Vomiting, No Diarrhea, No Constipation, No abdominal Pain, No Hematochezia, No Melena Genitourinary : no irregular bleeding, No Dysuria, No Urinary Frequency, No Hematuria, No Urinary Incontinence, No Urgency, No Flank Pain, No Urinary Flow Changes, No Hesitancy Musculoskeletal : No joint pain, No Myalgias, No Joint Swelling Skin : No Skin Lesions, No rash Neuro : No Weakness, No Numbness, No Paresthesias, No Loss of Consciousness, No Dizziness, No Headache Psych : No Anxiety/Panic, No Depression, No SI/HI/AH/VH, No Social Issues, Heme/Lymph: No Bruising, No Bleeding,No Lymphadenopathy Endocrine : No Polyuria, No Polydipsia, No Temperature Intolerance [facility] Past Medical History Medical History Anxiety and depression Arthritis COPD (chronic obstructive pulmonary disease) Coronary artery disease Diabetes Diarrhea GERD (gastroesophageal reflux disease) History of blood transfusion MRSA (methicillin resistant Staphylococcus aureus) Myocardial infarct Surgical History H/O: hysterectomy History of cardiac catheterization History of total right knee replacement (TKR) Hx of cholecystectomy Hx of colonoscopy Hx of tonsillectomy Family History Family History Father Colon cancer Social History Social History Are you a primary assurance services manager health care to a significant other at home: No Do you presently have visiting nurse or other home services: Yes ([facility]- 2 hours --) Patient Tobacco Use Status: Former Tobacco user Quit Date: 2014 Tobacco use type: Cigarette Second Hand Smoke Exposure: No Advance Directives: No service: No Physical Exam Vital Signs: Vital Signs: Last Vital Signs Pulse 141 H 12/19/21 01:57 Resp 18 12/19/21 01:57 BP 143/61 H 12/19/21 01:57 Pulse Ox 99 12/19/21 01:57 Oxygen Flow Rate 4 12/19/21 00:29 BMI result Body Mass Index 39.6 Const: Other: Appearance: Alert. Oriented X3. Eyes: Pupils equal, round and reactive to light. ENT: Pharynx normal. Neck: Normal inspection. Neck supple. No lymph nodes noted. No crepitus CVS: Normal heart rate and rhythm. Pulses normal. Normal S1 and S2 Respiratory: Patient is working hard to breathe, oxygen saturation 96% on room air, breath sounds bilaterally significantly diminished, no wheezing Abdomen: Soft and nontender. No rigidity. No distention. Skin: Skin warm and dry. Normal skin color. Normal skin turgor. Extremities: No lower extremity edema. No Lacerations. No Rash Neuro: Oriented X 3. No motor deficit. No sensory deficit. Moving all extremities. No slurred speech. CN 2 through 12 grossly intact Psych: calm, cooperative, normal affect Course Course Course Narrative: I discussed with the patient and with her son and daughter who are at bedside that patient is working hard to breathe. We will give her a chance with breathing treatments and BiPAP. But the way that things are looking, she will likely end up intubated. Patient and her son and daughter agree. Patient has severely diminished breath sounds. Patient was put on a non- rebreather, patient's oxygen saturation was 96%. However she was working very hard to breathe. Patient was put on a BiPAP for a few minutes. Patient was still working very hard to breathe. We gave her 2 mg of Ativan. We gave the p atient a few minutes to recuperate, but the patient continued breathing heavily despite having good oxygenation, patient started becoming more alter and less responsive. Patient was intubated. Patient was given Levaquin on arrival, fluids being given on an ideal weight of 55 kg. Patient is obese. X-ray shows pulmonary venous congestion. However, patient's shortness of breath likely secondary to COPD exacerbation leading to respiratory failure. As mentioned above, on physical exam patient had decreased, nearly inaudible breath sounds. BNP 212. Patient has no history of diagnosed CHF. Patient does not have lower extremity edema. Patient's potassium is 7.6. T-waves on EKG. Patient received several nebulization when patient arrived before the labs were drawn. Additionally, patient received calcium gluconate, D50, insulin 10 units, bicarb. I discussed the patient with nurse practitioner Fernando and Dr. Copeland. Chemistries pending. Patient was already accepted to the ICU. MDM - SOB/Dyspnea Lab Data Result diagrams: 12/19/21 00:57 12/19/21 00:57 Labs: Lab Results 12/19/21 12/19/21 12/19/21 Range/Units 00:57 00:57 00:57 WBC 13.4 H (4.8-10.8) X10*3/uL RBC 3.54 L (4.20-5.50) X10*6/uL Hgb 10.3 L (12.0-16.0) g/dl Hct 34.1 L (37.0-47.0) % MCV 96.3 (80.0-98.0) fL MCH 29.1 (27.0-33.0) pg MCHC 30.2 L (31.0-35.0) g/dl RDW 15.2 (11.0-16.0) % Plt Count 315 (160-400) X10*3/uL MPV 9.6 (9.4-12.3) fL Immature Gran % (Auto) 1.8 H (0.0-0.4) % Neut % (Auto) 85.8 H (45-73) % Lymph % (Auto) 9.7 L (20-40) % [place] % (Auto) 2.2 (2-11) % Eos % (Auto) 0.1 (0-4) % Baso % (Auto) 0.4 (0-2) % Lymph # (Auto) 1.3 (1.2-4.9) X10*3/uL [place] # (Auto) 0.3 (0.1-1.2) X10*3/uL Eos # (Auto) 0.0 (0.0-0.4) X10*3/uL Baso # (Auto) 0.1 (0.0-0.2) X10*3/uL Abs Immat Gran (auto) 0.24 H (0.00-0.03) X10*3/uL Absolute Neuts (auto) 11.5 H (2.0-8.3) x10*3/uL Absolute Nucleated RBC 0.020 H (0.0-0.012) X10*3/uL Nucleated RBC % (auto) 0.1 (0.0-0.2) /100WBC VBG pH (7.32-7.43) VBG pCO2 mmHg VBG pO2 mmHg VBG HCO3 (22-26) mmol/L VBG O2 Saturation % VBG Base Excess mmol/L Sodium 136 (135-145) mmol/L Potassium 7.6 H* D (3.3-5.1) mmol/L Chloride 106 (96-108) mmol/L Carbon Dioxide 17 L (22-29) mmol/L Anion Gap 21 H (12-20) BUN 26 H D (9-16) mg/dL Creatinine 1.59 H (0.5-1.4) mg/dL Estim Creat Clear Calc 36.0 Estimated GFR 32 Random Glucose 336 H (60-115) mg/dL Lactic Acid 5.3 H* (0.5-2.0) mmol/L Calcium 9.1 (8.4-10.2) mg/dL Total Bilirubin < 0.2 (0.0-1.0) mg/dL Direct Bilirubin < 0.2 (0.0-0.5) mg/dL AST 18 (5-31) U/L ALT 12 (0-31) U/L Alkaline Phosphatase 114 (39-117) U/L Troponin I High Sens (<3.5-17.0) ng/L B-Natriuretic Peptide (<100) pg/mL Total Protein 6.4 L D (6.5-8.0) g/dL Albumin 3.9 D (3.5-5.0) g/dL COVID-19 ([facility]) (Negative) COVID-19 Clin Com Influenza Type A (HU) (Negative) Influenza Type B (HU) (Negative) Influenza A & B Note 12/19/21 12/19/21 12/19/21 Range/Units 00:57 00:57 00:57 WBC (4.8-10.8) X10*3/uL RBC (4.20-5.50) X10*6/uL Hgb (12.0-16.0) g/dl Hct (37.0-47.0) % MCV (80.0-98.0) fL MCH (27.0-33.0) pg MCHC (31.0-35.0) g/dl RDW (11.0-16.0) % Plt Count (160-400) X10*3/uL MPV (9.4-12.3) fL Immature Gran % (Auto) (0.0-0.4) % Neut % (Auto) (45-73) % Lymph % (Auto) (20-40) % [place] % (Auto) (2-11) % Eos % (Auto) (0-4) % Baso % (Auto) (0-2) % Lymph # (Auto) (1.2-4.9) X10*3/uL [place] # (Auto) (0.1-1.2) X10*3/uL Eos # (Auto) (0.0-0.4) X10*3/uL Baso # (Auto) (0.0-0.2) X10*3/uL Abs Immat Gran (auto) (0.00-0.03) X10*3/uL Absolute Neuts (auto) (2.0-8.3) x10*3/uL Absolute Nucleated RBC (0.0-0.012) X10*3/uL Nucleated RBC % (auto) (0.0-0.2) /100WBC VBG pH (7.32-7.43) VBG pCO2 mmHg VBG pO2 mmHg VBG HCO3 (22-26) mmol/L VBG O2 Saturation % VBG Base Excess mmol/L Sodium (135-145) mmol/L Potassium (3.3-5.1) mmol/L Chloride (96-108) mmol/L Carbon Dioxide (22-29) mmol/L Anion Gap (12-20) BUN (9-16) mg/dL Creatinine (0.5-1.4) mg/dL Estim Creat Clear Calc Estimated GFR Random Glucose (60-115) mg/dL Lactic Acid (0.5-2.0) mmol/L Calcium (8.4-10.2) mg/dL Total Bilirubin (0.0-1.0) mg/dL Direct Bilirubin (0.0-0.5) mg/dL AST (5-31) U/L ALT (0-31) U/L Alkaline Phosphatase (39-117) U/L Troponin I High Sens 6.3 (<3.5-17.0) ng/L B-Natriuretic Peptide 212 H (<100) pg/mL Total Protein (6.5-8.0) g/dL Albumin (3.5-5.0) g/dL COVID-19 ([facility]) Negative (Negative) COVID-19 Clin Com See Note Influenza Type A (HU) Negative (Negative) Influenza Type B (HU) Negative (Negative) Influenza A & B Note See Note 12/19/21 Range/Units 01:04 WBC (4.8-10.8) X10*3/uL RBC (4.20-5.50) X10*6/uL Hgb (12.0-16.0) g/dl Hct (37.0-47.0) % MCV (80.0-98.0) fL MCH (27.0-33.0) pg MCHC (31.0-35.0) g/dl RDW (11.0-16.0) % Plt Count (160-400) X10*3/uL MPV (9.4-12.3) fL Immature Gran % (Auto) (0.0-0.4) % Neut % (Auto) (45-73) % Lymph % (Auto) (20-40) % [place] % (Auto) (2-11) % Eos % (Auto) (0-4) % Baso % (Auto) (0-2) % Lymph # (Auto) (1.2-4.9) X10*3/uL [place] # (Auto) (0.1-1.2) X10*3/uL Eos # (Auto) (0.0-0.4) X10*3/uL Baso # (Auto) (0.0-0.2) X10*3/uL Abs Immat Gran (auto) (0.00-0.03) X10*3/uL Absolute Neuts (auto) (2.0-8.3) x10*3/uL Absolute Nucleated RBC (0.0-0.012) X10*3/uL Nucleated RBC % (auto) (0.0-0.2) /100WBC VBG pH 7.37 (7.32-7.43) VBG pCO2 22 mmHg VBG pO2 152 mmHg VBG HCO3 13 L (22-26) mmol/L VBG O2 Saturation 100.0 % VBG Base Excess -9.9 mmol/L Sodium (135-145) mmol/L Potassium (3.3-5.1) mmol/L Chloride (96-108) mmol/L Carbon Dioxide (22-29) mmol/L Anion Gap (12-20) BUN (9-16) mg/dL Creatinine (0.5-1.4) mg/dL Estim Creat Clear Calc Estimated GFR Random Glucose (60-115) mg/dL Lactic Acid (0.5-2.0) mmol/L Calcium (8.4-10.2) mg/dL Total Bilirubin (0.0-1.0) mg/dL Direct Bilirubin (0.0-0.5) mg/dL AST (5-31) U/L ALT (0-31) U/L Alkaline Phosphatase (39-117) U/L Troponin I High Sens (<3.5-17.0) ng/L B-Natriuretic Peptide (<100) pg/mL Total Protein (6.5-8.0) g/dL Albumin (3.5-5.0) g/dL COVID-19 ([facility]) (Negative) COVID-19 Clin Com Influenza Type A ([facility]) (Negative) Influenza Type B (HU) (Negative) Influenza A & B Note Procedures Intubation Time out performed: Yes sedative: Etomidate Mg Given: 20 paralytic: Rocuronium Mg Given: 100 Laryngoscope: other (GlideScope) ET Tube Size: 7.5 ET Tube Uncuffed: Yes Tube Secured Depth (cm): 23 Tube Secured Location: lips Tube Placement Confirmation: visualized tube passing through cords, equal breath sounds bilaterally, no breath sounds over epigastrium and confirmation by capnometry Patient Tolerated Procedure: well and no complications Intubation Complications: none Critical Care Time Critical Care Time Critical Care Time: Yes Total Critical Care Time: 60 Attestation: I have personally provided critical care time. Time includes review of lab data, radiology results, discussion with consultants, and monitoring for potential decompensation. Intervention performed as documented. Discharge Plan Discharge Clinical Impression: COPD (chronic obstructive pulmonary disease), Respiratory failure, Acute hyperkalemia, Acute kidney injury Patient Disposition: Admitted As Inpatient
[2021-12-19] MEDS: Albuterol Sulfate (0.083%) 2.5 MG/3 ML VIAL.NEB 10 MG INHALE (00:45)
[2021-12-19] MEDS: Magnesium Sulfate/H2O 2 GM/50 ML PIGGYBACK IV (00:46)
[2021-12-19] MEDS: methylPREDNISolone Sod Succ 125 MG/2 ML VIAL IVPUSH (00:46)
[2021-12-19] MEDS: 0.9 % Sodium Chloride 1,000 ML 999 ML IVCONT (00:47)
--- NOTE | 2021-12-19 00:47 | PC.NURSE ---
pt a&o, with sob and cough. Respiratory notified and breathing treatment given per order. Medicated per Nov. EKG completed.
--- NOTE | 2021-12-19 00:58 | PC.NURSE ---
22 Iv placed to right hand.
[2021-12-19 01:08] LABS: MANUAL DIFF FLAG NO
[2021-12-19 01:09] LABS: Basophils Absolute Auto 0.1 X10*3/uL (0.0-0.2); Basophils Percent Auto 0.4 % (0-2); Eosinophils Percent Auto 0.1 % (0-4); Hematocrit 34.1 % (37.0-47.0); Hemoglobin 10.3 g/dl (12.0-16.0); Imm Gran Abs Auto 0.24 X10*3/uL (0.00-0.03); Imm Gran Pct Auto 1.8 % (0.0-0.4); Lymphocytes Absolute Auto 1.3 X10*3/uL (1.2-4.9); Lymphocytes Percent Auto 9.7 % (20-40); Mean Corpuscular HGB Conc 30.2 g/dl (31.0-35.0); Mean Corpuscular Hemoglobin 29.1 pg (27.0-33.0); Mean Corpuscular Volume 96.3 fL (80.0-98.0); Mean Platelet Volume 9.6 fL (9.4-12.3); Monocytes Absolute Auto 0.3 X10*3/uL (0.1-1.2); Monocytes Percent Auto 2.2 % (2-11); NRBC Pct Auto 0.1 /100WBC (0.0-0.2); Neutrophils Absolute Auto 11.5 x10*3/uL (2.0-8.3); Neutrophils Percent Auto 85.8 % (45-73); Platelet Count 315 X10*3/uL (160-400); Red Blood Count 3.54 X10*6/uL (4.20-5.50); Red Cell Distribution Width 15.2 % (11.0-16.0); White Blood Count 13.4 X10*3/uL (4.8-10.8)
[2021-12-19 01:11] LABS: Venous Blood Gas Refer to POC result
[2021-12-19 01:12] LABS: VBG Base Excess -9.9 mmol/L; VBG HCO3 13 mmol/L (22-26); VBG pCO2 22 mmHg; VBG pH 7.37 (7.32-7.43); VBG pO2 152 mmHg
[2021-12-19] MEDS: ondansetron HCL 4 MG/2 ML VIAL IVPUSH (01:15)
[2021-12-19] MEDS: LORazepam 2 MG/ML VIAL IVPUSH ×2 (01:15→08:15)
[2021-12-19] MEDS: Etomidate 20 MG/10 ML VIAL IVPUSH (01:28)
[2021-12-19 01:31] LABS: Lactic Acid 5.3 mmol/L (0.5-2.0)
[2021-12-19 01:34] LABS: B Type Natriuretic Peptide 212 pg/mL (<100); Troponin-I High Sensitivity 6.3 ng/L (<3.5-17.0)
[2021-12-19] MEDS: propofoL 1,000 MG/100 ML VIAL 11.81 MG IVCONT (01:40)
--- NOTE | 2021-12-19 02:18 | PC.NURSE ---
PT came to this facility from home via EMS with complaint of increasing SOB over the past week. PT presents with cough, dyspnea, and tachypnea. RT initially called for patient to provide 1 hour breathing treatment. Once PT started breathing treatment, SOB and tachypnea had not subsided. PT continued to breathe at an abnormally rapid rate. Rhythm changes were noted on the monitor, this RN informed provider and repeated EKG as directed. PT was then placed on bipap at 12/6 with little positive response. Respirations continued at 40/min and PT was moved to room 05 to prepare for intubation. In room 05, PT was sedated with 20 mg of etmoidate and 100 mg of rocuronium and intubated without complication. PT was then placed on a propofol drip to maintain sedation while intubated. Report given to Benny who was the nurse taking over care of this PT.
[2021-12-19 02:28] LABS: COVID-19 Test Negative (Negative); IDNOW Serial# 55D5AD1C; Influenza A Negative (Negative); Influenza B2 Negative (Negative)
--- NOTE | 2021-12-19 02:29 | PC.RT ---
Pt intubated with 7.5 ETT 23@ LIP x1 attempt; +ez cap, bilateral chest rise and confirmed placement with Xray. Placed on Ventilator AC/VC 18 325 +5 100% soft restraints in place.
[2021-12-19 02:39] LABS: Alanine Aminotransferase 12 U/L (0-31); Albumin Level 3.9 g/dL (3.5-5.0); Alkaline Phosphatase 114 U/L (39-117); Anion Gap 21 (12-20); Aspartate Amino Transferase 18 U/L (5-31); Bilirubin Direct < 0.2 mg/dL (0.0-0.5); Bilirubin Total < 0.2 mg/dL (0.0-1.0); Blood Urea Nitrogen 26 mg/dL (9-16); Calcium 9.1 mg/dL (8.4-10.2); Carbon Dioxide 17 mmol/L (22-29); Chloride 106 mmol/L (96-108); Estimated Glomerular Filt Rate 32; Glucose Random 336 mg/dL (60-115); Potassium 7.6 mmol/L (3.3-5.1); Sodium 136 mmol/L (135-145); Total Protein 6.4 g/dL (6.5-8.0)
[2021-12-19] MEDS: Insulin Regular, Human 100 UNIT/ML 3 ML VIAL 10 UNIT IVPUSH (02:49)
[2021-12-19] MEDS: Dextrose 50 % 25 GM/50 ML SYRINGE IVPUSH (02:50)
[2021-12-19] MEDS: Sodium Bicarbonate 8.4% 50 MEQ/50 ML SYRINGE IVPUSH ×2 (02:50→07:56)
[2021-12-19] MEDS: Calcium Gluconate/NaCl,Iso-Osm 2 GM/100 ML PLAST..BAG IV (02:51)
[2021-12-19] MEDS: levoFLOXacin/D5W 500 MG/100 ML PIGGYBACK 100 MG IV (02:51)
[2021-12-19] MEDS: Furosemide 40 MG/4 ML VIAL IVPUSH (02:51)
[2021-12-19 03:06] LABS: Reflex Lactate? Lactic Acid Added
[2021-12-19 03:08] LABS: Alanine Aminotransferase 14 U/L (0-31); Albumin Level 3.8 g/dL (3.5-5.0); Alkaline Phosphatase 115 U/L (39-117); Anion Gap 22 (12-20); Aspartate Amino Transferase 19 U/L (5-31); Bilirubin Total 0.4 mg/dL (0.0-1.0); Blood Urea Nitrogen 26 mg/dL (9-16); Calcium 8.9 mg/dL (8.4-10.2); Carbon Dioxide 16 mmol/L (22-29); Chloride 106 mmol/L (96-108); Creatinine Clr Calc Pharmacy 34.9; Estimated Glomerular Filt Rate 31; Glucose Random 352 mg/dL (60-115); Potassium 8.1 mmol/L (3.3-5.1); Sodium 136 mmol/L (135-145); Total Protein 6.5 g/dL (6.5-8.0)
[2021-12-19] MEDS: Furosemide 200 MG in 0.9 % Sodium Chloride 80 ML IVCONT (03:38)
--- NOTE | 2021-12-19 03:43 | PM.CCHP ---
History of Present Illness Date of Service: 12/19/21 Attending physician on admission: Aneudy Copeland Chief Complaint: Dyspnea The patient is a 61-year-old female with past medical history of COPD, CAD status post stent, hypertension, diabetes, hyperlipidemia and recent left total knee replacement who presented to the emergency room? with complaints of dyspnea.? Patient reported she was seen by primary care? provider on 12/17/21 and was? diagnosed with COPD exacerbation and started on azithromycin and Solu-Medrol. ? Tonight she presented with worsening dyspnea,? and tachypnea.? Initially the patient was alert and oriented satting 95% on room air, but later she continued to have a difficult time breathing,? with worsening? mental status required? emergent intubation in the emergency room for respiratory distress.? Laboratory data was significant for? VBGs: 7.37//152/13. ? WBC 13.4,? potassium 7.6, serum bicarb 17, BUN 26, creatinine 1.59, glucose 336,? lactic acid 5.3, BNP? 212.? In the emergency room she received? 2 L normal saline, total of 4 of Ativan, 10mg albuterol,? 1.25 levalbuterol,? 125 of Solu-Medrol, Levaquin, magnesium,? Lasix 40, calcium 2 g, bicarb,? 10 units of regular insulin,? and amp of dextrose ?Imaging:? Chest Xray:? with evidence of pulm congestion Review of Systems Review of Systems: unable to do as patient is intubated PMFSH Past Medical History Medical History Anxiety and depression Arthritis COPD (chronic obstructive pulmonary disease) Coronary artery disease Diabetes Diarrhea GERD (gastroesophageal reflux disease) History of blood transfusion MRSA (methicillin resistant Staphylococcus aureus) Myocardial infarct Family History Family History Father Colon cancer Surgical History Surgical History H/O: hysterectomy History of cardiac catheterization History of total right knee replacement (TKR) Hx of cholecystectomy Hx of colonoscopy Hx of tonsillectomy Social History Social History Are you a primary career development director to a significant other at home: No Do you presently have visiting nurse or other home services: Yes ([facility] - ADDICTION COUNSELOR- 2 hours M-W-) Patient Tobacco Use Status: Former Tobacco user Quit Date: 2014 Tobacco use type: Cigarette Second Hand Smoke Exposure: No Advance Directives: No service: No Meds Allergies Allergy/AdvReac Type Severity Reaction Status Date / Time No Known Allergies Allergy Verified 12/18/21 10:25 Pain Med Sensitivity Allergy Unknown none Uncoded 12/18/21 10:25 Active Medications: Current Medications Chlorhexidine Gluconate (Chlorhexidine Gluc Oral Rinse 15 Ml Mouthwash) 15 ml BUCCAL TID RAVEN Heparin Sodium (Porcine) (Heparin Sodium,Porcine 5,000 Unit/Ml Vial) 5,000 unit SUBCUT TID RAVEN Propofol (Diprivan) 1,000 mg in 100 mls @ 0 mls/hr IVCONT .Q0M RAVEN; Protocol Last Admin: 12/19/21 01:40 Dose: 20 mcg/kg/min, 11.81 mls/hr Documented by: Calcium Gluconate (Calcium Gluconate) 2 gm in 100 mls @ 50 mls/hr IV ONCE ONE Stop: 12/19/21 04:38 Last Admin: 12/19/21 02:51 Dose: 50 mls/hr Documented by: Furosemide 200 mg/ Sodium (Chloride) 100 mls @ 2.5 mls/hr IVCONT .Q24H RAVEN Last Admin: 12/19/21 03:38 Dose: 5 mg/hr, 2.5 mls/hr Documented by: Pantoprazole Sodium (Pantoprazole Sodium 40 Mg/10 Ml Vial) 40 mg IVPUSH DAILY ONE Stop: 12/19/21 06:31 Home Medications Medication Instructions Recorded Confirmed Last Taken Type atorvastatin 80 mg tablet 1 tab PO BEDTIME 08/12/20 11/06/21 Unknown History cyanocobalamin (vitamin B-12) 1 tab PO QAM 08/12/20 11/06/21 Unknown History 1,000 mcg tablet ferrous sulfate 325 mg (65 mg 1 tab PO BID 08/12/20 11/06/21 Unknown History iron) tablet fluticasone furoate 200 1 puff INHALATION DAILY 08/12/20 11/06/21 Unknown History mcg-vilanterol 25 mcg/dose inhalation powder (Breo Ellipta) ipratropium 0.5 mg-albuterol 3 mg 1 amp INHALATION QID PRN 08/12/20 11/06/21 Unknown History (2.5 mg base)/3 mL nebulization soln metformin 1,000 mg tablet 1 tab PO BID 08/12/20 11/06/21 Unknown History metoprolol tartrate 25 mg tablet 1 tab PO DAILY 08/12/20 11/06/21 08/19/20 09:00 History nitroglycerin 0.4 mg sublingual 1 tab SUBLINGUAL NEEDED PRN 08/12/20 11/06/21 Unknown History tablet oxybutynin chloride 10 mg 1 tab PO .DAILY@NOON 08/12/20 11/06/21 Unknown History tablet,extended release 24 hr pantoprazole 40 mg tablet,delayed 1 tab PO BID 08/12/20 11/11/21 11/11/21 History release sertraline 50 mg tablet 1 tab PO BEDTIME 08/12/20 11/06/21 Unknown History trazodone 50 mg tablet 1 tab PO BEDTIME 08/12/20 11/06/21 Unknown History glipizide 5 mg tablet 5 mg PO DAILY 09/30/21 11/06/21 Unknown History albuterol sulfate 90 mcg/actuation 2 puff INHALATION Q4-6H PRN 10/31/21 11/06/21 Unknown History aerosol inhaler (ProAir HFA) calcium carbonate 500 mg calcium 1 tab PO QAM 10/31/21 11/06/21 Unknown History (1,250 mg) tablet Physical Exam Vital Signs: Vital Signs: Last Vital Signs Pulse 141 H 12/19/21 01:57 Resp 18 12/19/21 01:57 BP 143/61 H 12/19/21 01:57 Pulse Ox 99 12/19/21 01:57 Oxygen Flow Rate 4 12/19/21 00:29 BMI result Body Mass Index 39.6 ?General:? Patient intubated. ?HEENT:? Head is normocephalic, atraumatic, pupils equal round reactive to light accommodation bilaterally.? Extraocular movements appear intact.? Buccal mucosa is dry, Neck is supple ?Cardiac: Sinus tach, no murmurs rubs or gallops. Trace edema on BLE ?Pulmonary: Diminished, with wheezing at bases. ON AC settings . ?Abdomen:? Protuberant, positive bowel sounds in all 4 quadrants.? Soft, nontender, no rebound or guarding.?? ?Musculoskeletal:? Moving all 4 extremities to painful stimuli. ?Neurologic:? cranial nerves 2-12 are grossly intact.? No focal deficits noted.Motor strength as above.?? ?Skin:? Intact, no lesions or ulcers Vascular:? 2+ pulses upper and lower extremities distally.? Results Labs CBC and Chem 7: 12/19/21 00:57 12/19/21 02:25 Labs: Laboratory Results - last 24 hr 12/19/21 12/19/21 12/19/21 00:57 00:57 00:57 MCV 96.3 MCH 29.1 MCHC 30.2 L RDW 15.2 Plt Count 315 MPV 9.6 Immature Gran % (Auto) 1.8 H Neut % (Auto) 85.8 H Lymph % (Auto) 9.7 L [place] % (Auto) 2.2 Eos % (Auto) 0.1 Baso % (Auto) 0.4 Lymph # (Auto) 1.3 [place] # (Auto) 0.3 Eos # (Auto) 0.0 Baso # (Auto) 0.1 Abs Immat Gran (auto) 0.24 H Absolute Neuts (auto) 11.5 H Absolute Nucleated RBC 0.020 H Nucleated RBC % (auto) 0.1 VBG pH VBG pCO2 VBG pO2 VBG HCO3 VBG O2 Saturation VBG Base Excess Anion Gap 21 H Estim Creat Clear Calc 36.0 Estimated GFR 32 Random Glucose 336 H Lactic Acid 5.3 H* Calcium 9.1 Total Bilirubin < 0.2 Direct Bilirubin < 0.2 AST 18 ALT 12 Alkaline Phosphatase 114 Troponin I High Sens B-Natriuretic Peptide Total Protein 6.4 L D Albumin 3.9 D COVID-19 ([facility]) COVID-19 Clin Com Influenza Type A ([facility]) Influenza Type B ([facility]) Influenza A & B Note 12/19/21 12/19/21 12/19/21 00:57 00:57 00:57 MCV MCH MCHC RDW Plt Count MPV Immature Gran % (Auto) Neut % (Auto) Lymph % (Auto) [place] % (Auto) Eos % (Auto) Baso % (Auto) Lymph # (Auto) [place] # (Auto) Eos # (Auto) Baso # (Auto) Abs Immat Gran (auto) Absolute Neuts (auto) Absolute Nucleated RBC Nucleated RBC % (auto) VBG pH VBG pCO2 VBG pO2 VBG HCO3 VBG O2 Saturation VBG Base Excess Anion Gap Estim Creat Clear Calc Estimated GFR Random Glucose Lactic Acid Calcium Total Bilirubin Direct Bilirubin AST ALT Alkaline Phosphatase Troponin I High Sens 6.3 B-Natriuretic Peptide 212 H Total Protein Albumin COVID-19 ([facility]) Negative COVID-19 Clin Com See Note Influenza Type A ([facility]) Negative Influenza Type B ([facility]) Negative Influenza A & B Note See Note 12/19/21 12/19/21 01:04 02:25 MCV MCH MCHC RDW Plt Count MPV Immature Gran % (Auto) Neut % (Auto) Lymph % (Auto) [place] % (Auto) Eos % (Auto) Baso % (Auto) Lymph # (Auto) [place] # (Auto) Eos # (Auto) Baso # (Auto) Abs Immat Gran (auto) Absolute Neuts (auto) Absolute Nucleated RBC Nucleated RBC % (auto) VBG pH 7.37 VBG pCO2 22 VBG pO2 152 VBG HCO3 13 L VBG O2 Saturation 100.0 VBG Base Excess -9.9 Anion Gap 22 H Estim Creat Clear Calc 34.9 Estimated GFR 31 Random Glucose 352 H* Lactic Acid Calcium 8.9 Total Bilirubin 0.4 Direct Bilirubin AST 19 ALT 14 Alkaline Phosphatase 115 Troponin I High Sens B-Natriuretic Peptide Total Protein 6.5 Albumin 3.8 COVID-19 ([facility]) COVID-19 Clin Com Influenza Type A ([facility]) Influenza Type B ([facility]) Influenza A & B Note Imaging Radiologist's Impressions: Impressions Chest X-Ray 12/19/21 01:53 FINDINGS/IMPRESSION: Endotracheal tube terminates 4.0 cm above the kar. Mild cardiomegaly. Pulmonary venous congestion. Mild interstitial pulmonary edema. Small bilateral pleural effusions and accompanying atelectasis. No pneumothorax. No acute osseous abnormalities. Assessment and Plan (1) Acute kidney injury: Status: Acute (2) Respiratory failure: Status: Acute (3) COPD exacerbation: Status: Acute (4) Pulmonary congestion: Status: Acute (5) COPD (chronic obstructive pulmonary disease): Status: Acute (6) Acute hyperkalemia: Status: Acute (7) Diabetes: Status: Acute (8) Elevated lactic acid level: Status: Acute (9) Leukocytosis: Status: Acute Plan 71-year-old female with underlying COPD admitted with acute respiratory failure secondary to COPD exacerbation and heart failure exacerbation Plan: Neuro:? No acute issues. Cardiac:?? ?Elevated lactic:? this is likely due to? recent administration of albuterol? and COPD exacerbation.? No evidence of severe sepsis at this time ?Pulmonary congestion:? patient with significant? pulmonary congestion? in chest x-ray,? does not have a history of? congestive heart failure,? this could be likely due to underlying acute renal failure. Negative trop, BNP elevated to 212.? Received 40 of Lasix in the emergency room, Will start Lasix drip.? Echo in the morning Pulmonary:? acute respiratory failure requiring intubation secondary to COPD exacerbation. Will cont systemic glucocorticoids and nebulized bronchodilators.? Keep 02 saturation 88-92%.? No signs of acute infection shown in x-ray. Wean off vent as tolerated? Renal:?? ?Acute renal failure:? patient?s potassium is 7.6, Serum bicarb 17, bun 26, creat 1.59, mild T wave elevation in EKG? but making urine. Received Insulin/d50 in ED as well as electrolyte replacement. This is likely related to copd exac. Will cont with lasix drip.? Closely monitor? renal indices and urine output. Renal consult in the am if necessary? Endo:? No acute issues.?? GI:? No acute issues. ID: ? leukocytosis,? mild leukocytosis likely related to recent? use of? systemic steroids.? No evidence of acute infection.? Heme/Onc:? Chroninc anemia: hemoglobin 10. Infuse if <7 Psych:? No acute issues. Miscellaneous:? No acute issues. Prophylaxis:? Heparin,? Protonix Diet:? NPO? Critical care time spent:? 90 minutes Case discussed with Dr Copeland
--- NOTE | 2021-12-19 03:50 | PC.NURSE ---
I assumed nursing care of Deedee upon her arrival to bed 5 from bed 13 where she was moved in order to intubate. Deedee pre medicated with Etomidate and Rocuronium and was subsequently intubated by Ursula CORTEZ with a 7.5 Ett, 23cm @ lip. CXR confirmed placement and pt was placed on vent: TV 325, FiO2 65%, Rate 18, Peep 5. She has remained adequately sedated since then, with Propofol infusing at 20mcg/kg/min. Temperature sensing Ignacio was placed and her core temp has been WNL at 98.5 Soft wrist restraints have been placed. Additional IV access obtained and IVF's are infusing, as well as ordered Levaquin. As pt's chemistries resulted she was noted to be hyperkalemic and received IVP insulin/calcium gluconate/sodium bicarb and dextrose (2 amps) per MD order. Ignacio is draining adequately, see I/O's. I have given nursing report to ICU and will prepare for transfer to ICU.
--- NOTE | 2021-12-19 03:55 | PC.NURSE ---
pt POC blood glucose 486 , RN Benny made aware
[2021-12-19 03:57] LABS: Glucose, Whole Blood 486 mg/dL (60-115)
--- NOTE | 2021-12-19 04:02 | PC.NURSE ---
ROcuronium and Etomidate, that were given in order to intubate this pt, were not entered in the MAR by the attending MD. Therefore, I /nursing entered the orders for the Rocuronium and the Etomidate at this time and back-timed them to the time they were administered. If there are errors it's because I typically do not enter orders for intubation meds.
[2021-12-19 04:32] LABS: ~Lactic Acid-LAB USE ONLY 7.5 mmol/L (0.5-2.0)
[2021-12-19 05:11] LABS: Glucose, Whole Blood 509 mg/dL (60-115)
[2021-12-19] MEDS: Insulin Regular, Human 100 UNIT/ML 3 ML VIAL IVPUSH (05:14)
[2021-12-19] MEDS: Pantoprazole Sodium 40 MG/10 ML VIAL IVPUSH (05:16)
[2021-12-19] MEDS: methylPREDNISolone Sod Succ 125 MG/2 ML VIAL 80 MG IVPUSH (05:16)
--- NOTE | 2021-12-19 05:34 | PC.NURSE ---
Addendum entered by Ismael Anderson RN 12/19/21 06:29: 6am poc glucose= 488...icu construction safety consultant present...lispro 10 units sc given per construction safety consultant Original Note: RECEIVED FROM ER DEPT APPROX 04:40...REMAINS TUBED/VENTED..AC/VCV MODE...AC18/TV325/FIO2 50%/PEEP 5...SAO2 91-92%...PROPOFOL 25 MCG/KG/MIN & LASIX 5 MG/HR...ASHRAF DRAINING LARGE AMOUNTS PALE YELLOW URINE...SINUS TACH HR 132-134..BP STABLE...ICU DIVISIONAL HUMAN RESOURCES DIRECTOR AWARE....POC GLUCOSE= 509...INSULIN R 5 UNITS IV PER DIVISIONAL HUMAN RESOURCES DIRECTOR...FOR 6AM LAB-WORK AND POC GLUCOSE
[2021-12-19 06:13] LABS: Glucose, Whole Blood 488 mg/dL (60-115)
[2021-12-19 06:14] LABS: Reflex Lactate? 2 Y
[2021-12-19 06:17] LABS: Basophils Absolute Auto 0.1 X10*3/uL (0.0-0.2); Basophils Percent Auto 0.4 % (0-2); Eosinophils Percent Auto 0.1 % (0-4); Hematocrit 32.9 % (37.0-47.0); Hemoglobin 9.6 g/dl (12.0-16.0); Imm Gran Abs Auto 0.31 X10*3/uL (0.00-0.03); Imm Gran Pct Auto 2.2 % (0.0-0.4); Lymphocytes Absolute Auto 0.4 X10*3/uL (1.2-4.9); Lymphocytes Percent Auto 2.6 % (20-40); Mean Corpuscular HGB Conc 29.2 g/dl (31.0-35.0); Mean Corpuscular Hemoglobin 29.3 pg (27.0-33.0); Mean Corpuscular Volume 100.3 fL (80.0-98.0); Mean Platelet Volume 9.9 fL (9.4-12.3); Monocytes Absolute Auto 0.3 X10*3/uL (0.1-1.2); Monocytes Percent Auto 1.8 % (2-11); NRBC Pct Auto 0.2 /100WBC (0.0-0.2); Neutrophils Absolute Auto 13.1 x10*3/uL (2.0-8.3); Neutrophils Percent Auto 92.9 % (45-73); Platelet Count 323 X10*3/uL (160-400); Red Blood Count 3.28 X10*6/uL (4.20-5.50); Red Cell Distribution Width 15.1 % (11.0-16.0); SCAN SMEAR FLAG 1; White Blood Count 14.1 X10*3/uL (4.8-10.8)
[2021-12-19] MEDS: Insulin Lispro 100 UNIT/ML 3 ML VIAL SUBCUT (06:18)
[2021-12-19] MEDS: propofoL 1,000 MG/100 ML VIAL 14.76 MG IVCONT (06:19)
[2021-12-19 06:34] LABS: MANUAL DIFF FLAG SCAN; SLIDE REVIEW VERIFIED
[2021-12-19 06:40] LABS: Alanine Aminotransferase 16 U/L (0-31); Albumin Level 3.7 g/dL (3.5-5.0); Alkaline Phosphatase 110 U/L (39-117); Anion Gap 25 (12-20); Aspartate Amino Transferase 21 U/L (5-31); Bilirubin Total 0.2 mg/dL (0.0-1.0); Blood Urea Nitrogen 28 mg/dL (9-16); Calcium 9.1 mg/dL (8.4-10.2); Carbon Dioxide 15 mmol/L (22-29); Chloride 102 mmol/L (96-108); Creatinine Clr Calc Pharmacy 29.2; Estimated Glomerular Filt Rate 26; Magnesium 1.8 mg/dL (1.6-2.6); Phosphorus 5.1 mg/dL (2.7-4.5); Sodium 134 mmol/L (135-145)
[2021-12-19 06:46] LABS: VBG Base Excess -12.5 mmol/L; VBG HCO3 16 mmol/L (22-26); VBG pCO2 49 mmHg; VBG pH 7.12 (7.32-7.43); VBG pO2 96 mmHg
[2021-12-19 06:48] LABS: Venous Blood Gas Refer to POC result
[2021-12-19 07:10] LABS: ~Lactic Acid-LAB USE ONLY 9.3 mmol/L (0.5-2.0)
--- NOTE | 2021-12-19 08:07 | MHC.IC ---
NOTED IN HISTORY AND PHYSICAL THAT PT HAS HISTORY OF MRSA. ORDER FOR CONTACT PRECAUTIONS INITIATED.
[2021-12-19] MEDS: fentaNYL citrate/NS 1,000 MCG/100 ML PLAST..BAG 2.5 MCG IVCONT (08:20)
[2021-12-19 08:35] LABS: Glucose, Whole Blood 486 mg/dL (60-115)
[2021-12-19] MEDS: Insulin Regular/NS 100 UNIT/100 ML PLAST..BAG IVCONT (08:41)
[2021-12-19 08:47] LABS: B Type Natriuretic Peptide 325 pg/mL (<100); Troponin-I High Sensitivity 126.4 ng/L (<3.5-17.0)
[2021-12-19] MEDS: Heparin Sodium,Porcine 5,000 UNIT/ML VIAL 5000 UNIT SUBCUT ×3 (08:51→20:00)
[2021-12-19] MEDS: Piperacillin Sodium/Tazobactam 3.375 GM in 0.9 % Sodium Chloride 50 ML IV ×3 (08:53→20:01)
[2021-12-19] MEDS: Chlorhexidine Gluc Oral Rinse 15 ML MOUTHWASH BUCCAL ×3 (08:54→20:00)
[2021-12-19] MEDS: Sodium Zirconium Cyclosilicate 10 GM POWD.PACK PO (08:57)
[2021-12-19] MEDS: Albumin Human 25 % 100 ML IV ×3 (09:03→20:03)
--- NOTE | 2021-12-19 09:03 | P.CONNP_ITS ---
History of Present Illness Reason for Consult Consult date: 12/19/21 Chief Complaint Chief complaint: COPD Exacerbation Review of Systems Review of Systems unable to do as patient is intubated [facility] Past Medical History Medical History Anxiety and depression Arthritis COPD (chronic obstructive pulmonary disease) Coronary artery disease Diabetes Diarrhea GERD (gastroesophageal reflux disease) History of blood transfusion MRSA (methicillin resistant Staphylococcus aureus) Myocardial infarct Family History Family History Father Colon cancer Surgical History Surgical History H/O: hysterectomy History of cardiac catheterization History of total right knee replacement (TKR) Hx of cholecystectomy Hx of colonoscopy Hx of tonsillectomy Social History Social History Household Members: Unknown / Unable to assess Are you a primary personal care worker to a significant other at home: No Do you presently have visiting nurse or other home services: Yes ([facility]- 2 hours --) Unable to assess alcohol history related to: Unable to respond Alcohol intake: unknown Patient Tobacco Use Status: Former Tobacco user Quit Date: 2014 Tobacco use type: Cigarette Second Hand Smoke Exposure: No Use of substances other than those prescribed or required for medical reasons: Unable to respond Advance Directives: No Recently lost weight without trying: Unsure Nutrition Risks: No Nutritional Risk service: No Meds Allergies Allergy/AdvReac Type Severity Reaction Status Date / Time No Known Allergies Allergy Verified 12/18/21 10:25 Pain Med Sensitivity Allergy Unknown none Uncoded 12/18/21 10:25 Active Medications: Current Medications Chlorhexidine Gluconate (Chlorhexidine Gluc Oral Rinse 15 Ml Mouthwash) 15 ml BUCCAL TID [facility] Last Admin: 12/19/21 08:54 Dose: 15 ml Documented by: Heparin Sodium (Porcine) (Heparin Sodium,Porcine 5,000 Unit/Ml Vial) 5,000 unit SUBCUT TID [facility] Last Admin: 12/19/21 08:51 Dose: 5,000 unit Documented by: Propofol (Diprivan) 1,000 mg in 100 mls @ 0 mls/hr IVCONT .Q0M [facility]; Protocol Last Titration: 12/19/21 08:09 Dose: 40 mcg/kg/min, 23.62 mls/hr Documented by: Piperacillin Sod/Tazobactam (Sod 3.375 gm/ Sodium Chloride) 50 mls @ 100 mls/hr IV Q6H R[facility]EN Last Admin: 12/19/21 08:53 Dose: 100 mls/hr Documented by: Vancomycin HCl 2,000 mg/ (Sodium Chloride) 540 mls @ 270 mls/hr IV ONCE ONE Stop: 12/19/21 09:55 Norepinephrine Bitartrate (Levophed) 8 mg in 250 mls @ 0 mls/hr IVCONT .Q0M RAVEN; Protocol Last Titration: 12/19/21 08:37 Dose: 0.07 mcg/kg/min, 12.55 mls/hr Documented by: Sodium Bicarbonate 50 meq/ (Dextrose) 1,000 mls @ 50 mls/hr IV .Q20H R[facility]EN Insulin Human Regular (Myxredlin) 100 unit in 100 mls @ 0 mls/hr IVCONT .Q0M R[facility]EN; Protocol Last Admin: 12/19/21 08:41 Dose: 5 unit/hr, 5 mls/hr Documented by: Albumin Human (Kedbumin 25 %) 100 mls @ 100 mls/hr IV Q6H R[facility]EN Stop: 12/20/21 03:44 Fentanyl (Sublimaze/Ns) 1,000 mcg in 100 mls @ 0 mls/hr IVCONT .Q0M R[facility]EN; Protocol Last Admin: 12/19/21 08:20 Dose: 25 mcg/hr, 2.5 mls/hr Documented by: Naloxone HCl (Naloxone Hcl 0.4 Mg/Ml Vial) 0.2 mg IVPUSH Q2M PRN PRN Reason: Excessive sedation or RR < 8 Pharmacy Consult (Consult Rx Vancomycin Dosing) 1 each MISCELLANE DAILY PRN PRN Reason: Consult order Home Medications Medication Instructions Recorded Confirmed Last Taken Type atorvastatin 80 mg tablet 1 tab PO BEDTIME 08/12/20 11/06/21 Unknown History cyanocobalamin (vitamin B-12) 1 tab PO QAM 08/12/20 11/06/21 Unknown History 1,000 mcg tablet ferrous sulfate 325 mg (65 mg 1 tab PO BID 08/12/20 11/06/21 Unknown History iron) tablet fluticasone furoate 200 1 puff INHALATION DAILY 08/12/20 11/06/21 Unknown History mcg-vilanterol 25 mcg/dose inhalation powder (Breo Ellipta) ipratropium 0.5 mg-albuterol 3 mg 1 amp INHALATION QID PRN 08/12/20 11/06/21 Unknown History (2.5 mg base)/3 mL nebulization soln metformin 1,000 mg tablet 1 tab PO BID 08/12/20 11/06/21 Unknown History metoprolol tartrate 25 mg tablet 1 tab PO DAILY 08/12/20 11/06/21 08/19/20 09:00 History nitroglycerin 0.4 mg sublingual 1 tab SUBLINGUAL NEEDED PRN 08/12/20 11/06/21 Unknown History tablet oxybutynin chloride 10 mg 1 tab PO .DAILY@NOON 08/12/20 11/06/21 Unknown History tablet,extended release 24 hr pantoprazole 40 mg tablet,delayed 1 tab PO BID 08/12/20 11/11/21 11/11/21 History release sertraline 50 mg tablet 1 tab PO BEDTIME 08/12/20 11/06/21 Unknown History trazodone 50 mg tablet 1 tab PO BEDTIME 08/12/20 11/06/21 Unknown History glipizide 5 mg tablet 5 mg PO DAILY 09/30/21 11/06/21 Unknown History albuterol sulfate 90 mcg/actuation 2 puff INHALATION Q4-6H PRN 10/31/21 11/06/21 Unknown History aerosol inhaler (ProAir HFA) calcium carbonate 500 mg calcium 1 tab PO QAM 10/31/21 11/06/21 Unknown History (1,250 mg) tablet Physical Exam Vital Signs: Last Vital Signs Temp 99.1 F 12/19/21 08:00 Pulse 109 H 12/19/21 08:00 Resp 23 H 12/19/21 08:00 BP 107/41 L 12/19/21 08:00 Pulse Ox 91 L 12/19/21 08:00 Oxygen Flow Rate 4 12/19/21 00:29 BMI result Body Mass Index 38.5 Const Other: Appearance: Alert. Oriented X3. Eyes: Pupils equal, round and reactive to light. ENT: Pharynx normal. Neck: Normal inspection. Neck supple. No lymph nodes noted. No crepitus CVS: Normal heart rate and rhythm. Pulses normal. Normal S1 and S2 Respiratory: Patient is working hard to breathe, oxygen saturation 96% on room air, breath sounds bilaterally significantly diminished, no wheezing Abdomen: Soft and nontender. No rigidity. No distention. Skin: Skin warm and dry. Normal skin color. Normal skin turgor. Extremities: No lower extremity edema. No Lacerations. No Rash Neuro: Oriented X 3. No motor deficit. No sensory deficit. Moving all extremities. No slurred speech. CN 2 through 12 grossly intact Psych: calm, cooperative, normal affect Results Lab Results Result Diagrams: 12/19/21 06:09 12/19/21 06:09 Lab results: Chemistry 12/19/21 12/19/21 12/19/21 00:57 02:25 06:09 Sodium 136 136 134 L Potassium 7.6 H* D 8.1 H* 7.6 H* Carbon Dioxide 17 L 16 L 15 L BUN 26 H D 26 H 28 H Creatinine 1.59 H 1.64 H 1.93 H Calcium 9.1 8.9 9.1 Phosphorus 5.1 H Hematology 12/19/21 12/19/21 00:57 06:09 WBC 13.4 H 14.1 H Hgb 10.3 L 9.6 L Plt Count 315 323 Assessment and Plan (1) Acute kidney injury: Status: Acute OLIGURIC AMOS HYPERKALEMIA WILL CHECK URINE STUDIES WILL DISCUSS URGENT HD WITH ICU TEAM (2) Respiratory failure: Status: Acute (3) COPD exacerbation: Status: Acute (4) Pulmonary congestion: Status: Acute (5) COPD (chronic obstructive pulmonary disease): Status: Acute (6) Acute hyperkalemia: Status: Acute (7) Diabetes: Status: Acute (8) Elevated lactic acid level: Status: Acute (9) Leukocytosis: Status: Acute Plan 71-year-old female with underlying COPD admitted with acute respiratory failure secondary to COPD exacerbation and heart failure exacerbation Plan: Neuro:? No acute issues. Cardiac:?? ?Elevated lactic:? this is likely due to? recent administration of albuterol? and COPD exacerbation.? No evidence of severe sepsis at this time ?Pulmonary congestion:? patient with significant? pulmonary congestion? in chest x-ray,? does not have a history of? congestive heart failure,? this could be likely due to underlying acute renal failure. Negative trop, BNP elevated to 212.? Received 40 of Lasix in the emergency room, Will start Lasix drip.? Echo in the morning Pulmonary:? acute respiratory failure requiring intubation secondary to COPD exacerbation. Will cont systemic glucocorticoids and nebulized bronchodilators.? Keep 02 saturation 88-92%.? No signs of acute infection shown in x-ray. Wean off vent as tolerated? Renal:?? ?Acute renal failure:? patient?s potassium is 7.6, Serum bicarb 17, bun 26, creat 1.59, mild T wave elevation in EKG? but making urine. Received Insulin/d50 in ED as well as electrolyte replacement. This is likely related to copd exac. Will cont with lasix drip.? Closely monitor? renal indices and urine output. Renal consult in the am if necessary? Endo:? No acute issues.?? GI:? No acute issues. ID: ? leukocytosis,? mild leukocytosis likely related to recent? use of? systemic steroids.? No evidence of acute infection.? Heme/Onc:? Chroninc anemia: hemoglobin 10. Infuse if <7 Psych:? No acute issues. Miscellaneous:? No acute issues. Prophylaxis:? Heparin,? Protonix Diet:? NPO? Critical care time spent:? 90 minutes Case discussed with Dr Copeland Procedures Date of Service Date of Service: 12/19/21
[2021-12-19 09:46] LABS: Appearance Urine CLEAR; Color Urine YELLOW; Glucose Urine UA >=1000 MG/DL (NEG); Leukocyte Esterase Urine NEG (NEG); Nitrite Urine NEG (NEG); PH 5.5 (5.0-8.0); Urine Blood 1+ (NEG); Urine Ketones NEG (NEG); Urine Protein NEG (NEG-TRACE)
--- NOTE | 2021-12-19 09:46 | MHC.CLN ---
RE: CONSULT PT IS INTUBATED AND SEDATED DISCUSSED AT ROUNDS WITH MD-PT TO REMAIN NPO FOR TODAY IF TF NEEDED; RECOMMEND PROMOTE AT MAX GOAL RATE 35ML/HR TO PROVIDE 840KCALS (1230KCALS WITH SEDATION; 25KCALS/KG), 52.5G PROTEIN (1.05G/KG), 705ML FREE WATER FROM FORMULA CAN ADD 240ML FREE WATER FLUSH Q SHIFT IF NEEDED START FORMULA AT 20ML/HR AND INCREASE BY 10ML Q 4HRS UNTIL MAX GOAL IS ACHIEVED MONITOR TOLERANCE, RESIDUALS AND LYTES SEE ALSO FULL CLINICAL NUTRITION ASSESSMENT
--- NOTE | 2021-12-19 09:51 | PHA.PROG ---
Admission Date/Time: December 19, 2021 03:03 Indication: OTHER? POSSIBLE SEPTIC SHOCK Weight in k.6 kg Adjusted body weight in K.3 kg Tranquillity body weight in K.1 Obesity Dosing Indication % IBW: obese model 18% above Serum Creatinine - Last 168 Hours 12/19/21 12/19/21 12/19/21 00:57 02:25 06:09 Creatinine 1.59 H 1.64 H 1.93 H Estimated CrCl and GFR - Last 168 Hours 12/19/21 12/19/21 12/19/21 00:57 02:25 06:09 Estim Creat Clear Calc 36.0 34.9 29.2 Estimated GFR 32 31 26 Vancomycin Loading Dose: 2000 mg Current Vancomycin Dosing Regimen: 500mg q24h Vancomycin Monitoring using AUC goal of 400 - 600 range with trough as surrogate marker: auc 422; trough 14 Date and Time for next Vancomycin Level to be drawn: draw 0700 on 12/21 Pharmacist Comments on Vancomycin Plan: Patients SCR is increasing. At 1.93. 500MG Q24H, BUT WILL CONSIDER INCREASING TO 1000MG IF SCR DECREASES Vancomycin dosing will take advantage of [employer] as a clinical decision support tool that uses Bayesian modeling to calculate individual patient's pharmacokinetic parameters and forecast the patient's drug concentration time course with the target goal AUC 24 range of 400 - 600 mg/L/hr.
[2021-12-19 09:54] LABS: Glucose, Whole Blood 484 mg/dL (60-115)
[2021-12-19 10:02] LABS: Squamous Epithelial Cell Urine 1+ /LPF; WBC Urine 0 /HPF (0-4)
--- NOTE | 2021-12-19 10:02 | W.PM.CCHP ---
Procedures Date of Service Date of Service: 12/19/21 Central Line Placement Left IJ: Central Line Comments: Left internal jugular triple-lumen central venous catheter emergently placed for vasopressor support under ultrasound guidance and usual sterile conditions with no immediate complications. Line position verified on chest x-ray.
[2021-12-19 10:06] LABS: Creatinine Urine 14.54 mg/dL
[2021-12-19] MEDS: Sodium Bicarbonate 8.4% 50 MEQ in Dextrose 5 % 950 ML IV (10:14)
--- NOTE | 2021-12-19 10:26 | PHA.MEDREC ---
Pharmacy Consult ? Medication Reconciliation Pharmacy has completed the medication reconciliation. Completed med rec using list in pts chart
--- NOTE | 2021-12-19 11:00 | CA_ITS ---
Transthoracic Echocardiogram Patient (Last, First, Middle): Deedee Linares, Gender: Female Date of : 1950 Age: 71 Procedure Date: 12/19/2021 Procedure Type: Transthoracic Echocardiogram Location: ICU Height: 157.48 cm Weight: 95.26 kg BSA: 1.95 m2 Heart Rate: bpm BP: 102 / 37 mmHg Cargo Router: VARGAS Referring MD: Fernando Piña NP Symptoms: COPD Exac/ Pulm congestion Study Quality: Fair ECG Rhythm: Sinus Conclusions: - Normal left ventricular size and systolic function. There is moderately increased left ventricular wall thickness. The visually estimated ejection fraction is between 60-65%. - E/E prime ratio is >15, consistent with elevated filling pressures. - Normal right ventricular cavity size and systolic function. Findings Left Ventricle Normal left ventricular size and systolic function. There is moderately increased left ventricular wall thickness. The visually estimated ejection fraction is between 60-65%. There is no evidence of regional wall motion abnormalities. Abnormal diastolic function is noted. Spectral Doppler is indicative of a pseudonormal filling pattern. E/E prime ratio is >15, consistent with elevated filling pressures. Right Ventricle Normal right ventricular cavity size and systolic function. Atria Both atria are normal in size. Aortic Valve Normal aortic valve structure and function. There is mild aortic valve stenosis. The peak aortic velocity is 2.25 m/s. The aortic valve area is 1.72 cm2. There is no aortic valve regurgitation. Mitral Valve The mitral valve appears normal. There is no mitral valve regurgitation. There is no mitral valve stenosis. Pulmonic Valve The pulmonic valve is likely normal. Tricuspid Valve Normal tricuspid valve structure. There is mild tricuspid valve regurgitation. Tricuspid regurgitation envelope is inadequate for calculation of right ventricular systolic pressure. Indeterminate right atrial pressure. Great Vessels The visualized portions of the pulmonary artery and branches are normal. Venous The inferior vena cava is dilated and collapses less than 50% with inspiration. Patient is intubated and cannot accurately assess the RA pressures. Pericardium/Pleural There is no evidence of pericardial effusion. Prior Study Comparison No prior study available for comparison. Measurements 2D Linear Measurements IVSd: 1.25 0.6-0.9/0.6-1.0 cm LVIDd: 3.80 3.9-5.3/4.2-5.9 cm LVIDd Index: 1.95 2.4-3.2/2.2-3.1 cm/m2 LVIDs: 2.44 2.0-3.6 cm LVPWd: 1.25 0.7-1.1 cm Ao Root: 3.30 2.1-3.5 cm LA Diam: 4.10 2.7-3.8/3.0-4.0 cm LAIDs Index: 2.10 1.5-2.3 cm/m2 LV Mass: 202.98 67-162/88-224 g LV Mass Index: 104.09 43-95/49-115 g/m2 LVOT Diam: 2.00 3.0+(-)1.3 cm Mitral Valve MV Pk E: 1.21 MV PK A: 1.03 MV Decel Time: 174.00 E/A: 1.20 E'Lateral: 9.14 E'Medial: 6.09 E/E' Med: 19.90 E/E' Lat: 13.20 PHT: 51.00 MVA PHT: 4.31 Decel [place]: 6.94 Aortic Valve AoV Pk Edgardo: 2.25 AoV Mn Edgardo: 1.53 AoV VTI: 0.44 AoV Pk Grad: 20.00 Aov Mn Grad: 11.00 MACKENZIE Cont.VTI: 1.72 LVOT LVOT Pk Edgardo: 1.08 LVOT Mn Edgardo: 0.74 LVOT VTI: 0.24 LVOT Pk Grad: 5.00 LVOT Mn Grad: 3.00 LVOT Diam: 2.00 LVOT Area: 3.14 Diastolic Function MV Pk E: 1.21 MV Pk A: 1.03 E/A: 1.20 E'Medial: 6.09 E/E' Med: 19.90 E' Laterial: 9.14 E/E' Lat: 13.20 Right Ventricle TAPSE (mm): 20.00 TVS' Edgardo: 17.00 Tricuspid Valve TR Pk Edgardo: 2.36 TR Pk Grad: 22.00 Great Vessels Aorta Ao Root-2D: 3.30 2.0-3.7 cm Ao Asc: 3.30 2.1-3.4 cm Pulmonary Valve PV Pk Edgardo: 1.43 Peak PV Grad: 8.00 Updated in Other Vendor System with Status of Final Fabian Larry MD electronically signed on 12/19/2021 4:22:41 PM with status of Final
[2021-12-19 11:02] LABS: Glucose, Whole Blood 497 mg/dL (60-115)
[2021-12-19] MEDS: propofoL 1,000 MG/100 ML VIAL 23.62 MG IVCONT (11:15)
[2021-12-19 12:02] LABS: Glucose, Whole Blood 433 mg/dL (60-115)
[2021-12-19 12:44] LABS: Lactic Acid 4.9 mmol/L (0.5-2.0)
[2021-12-19 12:53] LABS: Anion Gap 19 (12-20); Blood Urea Nitrogen 31 mg/dL (9-16); Calcium 9.2 mg/dL (8.4-10.2); Carbon Dioxide 20 mmol/L (22-29); Chloride 101 mmol/L (96-108); Creatinine Clr Calc Pharmacy 27.1; Estimated Glomerular Filt Rate 24; Glucose Random 498 mg/dL (60-115); Potassium 6.2 mmol/L (3.3-5.1); Sodium 134 mmol/L (135-145)
[2021-12-19 13:07] LABS: Glucose, Whole Blood 434 mg/dL (60-115)
[2021-12-19 14:05] LABS: Glucose, Whole Blood 406 mg/dL (60-115)
[2021-12-19 14:16] LABS: Reflex Lactate? Lactic Acid Added
[2021-12-19 15:07] LABS: ~Lactic Acid-LAB USE ONLY 3.5 mmol/L (0.5-2.0)
[2021-12-19 15:17] LABS: Glucose, Whole Blood 397 mg/dL (60-115)
[2021-12-19 16:05] LABS: Glucose, Whole Blood 375 mg/dL (60-115)
[2021-12-19] MEDS: propofoL 1,000 MG/100 ML VIAL 20.66 MG IVCONT ×2 (16:22→20:05)
[2021-12-19 16:35] LABS: Reflex Lactate? 2 Y
[2021-12-19 17:11] LABS: Glucose, Whole Blood 360 mg/dL (60-115)
[2021-12-19 18:16] LABS: Glucose, Whole Blood 351 mg/dL (60-115)
[2021-12-19 19:09] LABS: Glucose, Whole Blood 342 mg/dL (60-115)
[2021-12-19] MEDS: Insulin Regular/NS 100 UNIT/100 ML PLAST..BAG 11 UNIT IVCONT (20:00)
[2021-12-19 20:02] LABS: Glucose, Whole Blood 299 mg/dL (60-115)
[2021-12-19 21:04] LABS: Glucose, Whole Blood 284 mg/dL (60-115)
[2021-12-19 22:19] LABS: Glucose, Whole Blood 230 mg/dL (60-115)
[2021-12-19 22:51] LABS: Potassium 7.6 mmol/L (3.3-5.1)
[2021-12-19 22:52] LABS: Glucose Random 566 mg/dL (60-115)
[2021-12-19 23:09] LABS: Glucose, Whole Blood 197 mg/dL (60-115)
[2021-12-20] VITALS (30 sets, daily range): BP systolic 99–153; BP diastolic 41–71; PULSE 63–100; RESP 16–26; TEMP 34.4–37.9; O2SAT 90–98; BMI 39.9
[2021-12-20 00:04] LABS: Glucose, Whole Blood 168 mg/dL (60-115)
[2021-12-20] MEDS: propofoL 1,000 MG/100 ML VIAL 20.66 MG IVCONT (00:10)
[2021-12-20 01:03] LABS: Glucose, Whole Blood 149 mg/dL (60-115)
[2021-12-20] MEDS: Piperacillin Sodium/Tazobactam 3.375 GM in 0.9 % Sodium Chloride 50 ML IV ×4 (01:24→21:04)
[2021-12-20 02:03] LABS: Glucose, Whole Blood 148 mg/dL (60-115)
[2021-12-20] MEDS: Albumin Human 25 % 100 ML IV (02:18)
[2021-12-20 03:58] LABS: Glucose, Whole Blood 141 mg/dL (60-115)
[2021-12-20] MEDS: propofoL 1,000 MG/100 ML VIAL 17.71 MG IVCONT ×2 (04:34→08:03)
[2021-12-20] MEDS: Sodium Bicarbonate 8.4% 50 MEQ in Dextrose 5 % 950 ML IV (04:37)
[2021-12-20 05:40] LABS: MANUAL DIFF FLAG NO
[2021-12-20 05:43] LABS: VBG Base Excess 4.6 mmol/L; VBG HCO3 26 mmol/L (22-26); VBG pCO2 30 mmHg; VBG pH 7.55 (7.32-7.43); VBG pO2 40 mmHg; Venous Blood Gas Refer to POC result
[2021-12-20 05:48] LABS: Basophils Percent Auto 0.1 % (0-2); Hematocrit 23.1 % (37.0-47.0); Hemoglobin 7.4 g/dl (12.0-16.0); Imm Gran Abs Auto 0.05 X10*3/uL (0.00-0.03); Imm Gran Pct Auto 0.4 % (0.0-0.4); Lymphocytes Absolute Auto 1.2 X10*3/uL (1.2-4.9); Lymphocytes Percent Auto 10.8 % (20-40); Mean Corpuscular Hemoglobin 29.5 pg (27.0-33.0); Mean Platelet Volume 9.7 fL (9.4-12.3); Monocytes Absolute Auto 0.7 X10*3/uL (0.1-1.2); Monocytes Percent Auto 5.9 % (2-11); NRBC Pct Auto 0.2 /100WBC (0.0-0.2); Neutrophils Absolute Auto 9.3 x10*3/uL (2.0-8.3); Neutrophils Percent Auto 82.8 % (45-73); Platelet Count 185 X10*3/uL (160-400); Red Blood Count 2.51 X10*6/uL (4.20-5.50); Red Cell Distribution Width 15.2 % (11.0-16.0); White Blood Count 11.3 X10*3/uL (4.8-10.8)
[2021-12-20 06:00] LABS: Alanine Aminotransferase 20 U/L (0-31); Albumin Level 4.2 g/dL (3.5-5.0); Alkaline Phosphatase 75 U/L (39-117); Anion Gap 18 (12-20); Aspartate Amino Transferase 24 U/L (5-31); Bilirubin Total 0.5 mg/dL (0.0-1.0); Blood Urea Nitrogen 24 mg/dL (9-16); Calcium 9.4 mg/dL (8.4-10.2); Carbon Dioxide 21 mmol/L (22-29); Chloride 104 mmol/L (96-108); Creatinine Clr Calc Pharmacy 38.1; Estimated Glomerular Filt Rate 35; Glucose Random 131 mg/dL (60-115); Magnesium 1.5 mg/dL (1.6-2.6); Phosphorus 2.7 mg/dL (2.7-4.5); Potassium 4.6 mmol/L (3.3-5.1); Sodium 138 mmol/L (135-145); Total Protein 5.8 g/dL (6.5-8.0)
[2021-12-20 06:01] LABS: Glucose, Whole Blood 127 mg/dL (60-115)
[2021-12-20] MEDS: Magnesium Sulfate/H2O 2 GM/50 ML PIGGYBACK IV (06:29)
[2021-12-20 06:51] LABS: Hematocrit 23.5 % (37.0-47.0); Hemoglobin 7.5 g/dl (12.0-16.0); Mean Corpuscular HGB Conc 31.9 g/dl (31.0-35.0); Mean Corpuscular Hemoglobin 29.5 pg (27.0-33.0); Mean Corpuscular Volume 92.5 fL (80.0-98.0); Mean Platelet Volume 9.5 fL (9.4-12.3); Platelet Count 180 X10*3/uL (160-400); Red Blood Count 2.54 X10*6/uL (4.20-5.50); Red Cell Distribution Width 15.2 % (11.0-16.0); White Blood Count 11.6 X10*3/uL (4.8-10.8)
[2021-12-20 06:53] LABS: Glucose, Whole Blood 116 mg/dL (60-115)
[2021-12-20 07:12] LABS: Osmolality Urine 382 mosm/kg (373-1093)
--- NOTE | 2021-12-20 07:25 | HE.PHANOTE ---
Pt cr decreased, predicated auc is now 343 with current dose, will continue for now since got adequate load, trough scheduled for tomorrow am
[2021-12-20] MEDS: Heparin Sodium,Porcine 5,000 UNIT/ML VIAL 5000 UNIT SUBCUT ×3 (07:39→21:04)
[2021-12-20] MEDS: vancomycin HCL 500 MG in 0.9 % Sodium Chloride 100 ML 110 MG IV (07:39)
[2021-12-20] MEDS: Chlorhexidine Gluc Oral Rinse 15 ML MOUTHWASH BUCCAL (07:39)
[2021-12-20] MEDS: fentaNYL citrate/NS 1,000 MCG/100 ML PLAST..BAG 2.5 MCG IVCONT (08:04)
--- NOTE | 2021-12-20 09:02 | ECG_ITS ---
Test Reason : TACHY Blood Pressure : / mmHG Vent. Rate : 150 BPM Atrial Rate : 000 BPM P-R Int : 000 ms QRS Dur : 104 ms QT Int : 346 ms P-R-T Axes : 000 -53 048 degrees QTc Int : 546 ms Supraventricular tachycardia vs atrial flutter Left axis deviation Abnormal ECG When compared with ECG of 19-DEC-2021 01:00, QRS duration has decreased T wave inversion no longer evident in Inferior leads Nonspecific T wave abnormality no longer evident in Lateral leads Referred By: Merari Shahid Electronically Signed By:Fabian Larry
[2021-12-20 09:05] LABS: Glucose, Whole Blood 110 mg/dL (60-115)
--- NOTE | 2021-12-20 10:10 | P.PNCC_ITS ---
Subjective Subjective Date of Service: 12/20/21 Interval History: 71-year-old lady with underlying history of COPD, CAD status post stenting, diabetes mellitus,, left zone knee replacement admitted on 12/19/2021 with dyspnea and tachypnea. On ER evaluation patient was noted to be in respiratory distress with significant metabolic acidosis, acute kidney failure, and hyperkalemia requiring intubation and ventilatory support. Patient was transferred to intensive care unit and started on empiric antibiotics and vasopressor support. Her renal function and electrolytes improved overnight. She was titrated off other pressor support and extubated uneventfully on 12/20/2021. No events overnight. Critical Care Time (minutes): 45 Physical Exam Vital Signs: Vital Signs: Last Vital Signs Temp 99.9 F 12/20/21 10:00 Pulse 92 12/20/21 10:00 Resp 18 12/20/21 10:00 BP 131/66 12/20/21 10:00 Pulse Ox 93 12/20/21 10:00 Oxygen Flow Rate 4 12/19/21 00:29 BMI result Body Mass Index 39.9 Const: General: no acute distress, alert and awake Eyes: Sclerae: sclerae normal EOM: EOMs intact bilaterally Neck: Neck: Yes no lymphadenopathy, Yes trachea midline and Yes supple Resp: Effort & Inspection: normal respiratory effort and no respiratory distress Auscultation: clear to auscultation bilaterally Cardio: Rate: regular rate Rhythm: regular rhythm Heart sounds: no gallops, no murmurs and no rubs GI: Palpation (GI): Soft to palpation and Other GI palpation findings present ( Nontender) Auscultation: normal bowel sounds Extrem: General: Yes no pedal edema, No clubbing and No cyanosis Objective Data Labs CBC & Chem 7: 12/20/21 06:28 12/20/21 05:34 Labs: Laboratory Results - last 24 hr 12/19/21 12/19/21 12/19/21 06:09 09:34 10:57 WBC RBC Hgb Hct MCV MCH MCHC RDW Plt Count MPV Immature Gran % (Auto) Neut % (Auto) Lymph % (Auto) Charlton % (Auto) Eos % (Auto) Baso % (Auto) Lymph # (Auto) Charlton # (Auto) Eos # (Auto) Baso # (Auto) Abs Immat Gran (auto) Absolute Neuts (auto) Absolute Nucleated RBC Nucleated RBC % (auto) VBG pH VBG pCO2 VBG pO2 VBG HCO3 VBG O2 Saturation VBG Base Excess Sodium Potassium 7.6 H* Chloride Carbon Dioxide Anion Gap BUN Creatinine Estim Creat Clear Calc Estimated GFR POC Glucose 497 H* Random Glucose 566 H* Lactic Acid Lactic Acid F/U @ 2Hr Calcium Phosphorus Magnesium Total Bilirubin AST ALT Alkaline Phosphatase Total Protein Albumin Urine Osmolality 382 12/19/21 12/19/21 12/19/21 11:58 12:07 12:07 WBC RBC Hgb Hct MCV MCH MCHC RDW Plt Count MPV Immature Gran % (Auto) Neut % (Auto) Lymph % (Auto) Charl[place] % (Auto) Eos % (Auto) Baso % (Auto) Lymph # (Auto) [place] # (Auto) Eos # (Auto) Baso # (Auto) Abs Immat Gran (auto) Absolute Neuts (auto) Absolute Nucleated RBC Nucleated RBC % (auto) VBG pH VBG pCO2 VBG pO2 VBG HCO3 VBG O2 Saturation VBG Base Excess Sodium 134 L Potassium 6.2 H* Chloride 101 Carbon Dioxide 20 L Anion Gap 19 BUN 31 H Creatinine 2.08 H Estim Creat Clear Calc 27.1 Estimated GFR 24 POC Glucose 433 H* Random Glucose 498 H* Lactic Acid 4.9 H* Lactic Acid F/U @ 2Hr Calcium 9.2 Phosphorus Magnesium Total Bilirubin AST ALT Alkaline Phosphatase Total Protein Albumin Urine Osmolality 12/19/21 12/19/21 12/19/21 13:02 14:00 14:30 WBC RBC Hgb Hct MCV MCH MCHC RDW Plt Count MPV Immature Gran % (Auto) Neut % (Auto) Lymph % (Auto) Charl[place] % (Auto) Eos % (Auto) Baso % (Auto) Lymph # (Auto) [place] # (Auto) Eos # (Auto) Baso # (Auto) Abs Immat Gran (auto) Absolute Neuts (auto) Absolute Nucleated RBC Nucleated RBC % (auto) VBG pH VBG pCO2 VBG pO2 VBG HCO3 VBG O2 Saturation VBG Base Excess Sodium Potassium Chloride Carbon Dioxide Anion Gap BUN Creatinine Estim Creat Clear Calc Estimated GFR POC Glucose 434 H* 406 H* Random Glucose Lactic Acid Lactic Acid F/U @ 2Hr 3.5 H* Calcium Phosphorus Magnesium Total Bilirubin AST ALT Alkaline Phosphatase Total Protein Albumin Urine Osmolality 12/19/21 12/19/21 12/19/21 15:14 16:01 17:06 WBC RBC Hgb Hct MCV MCH MCHC RDW Plt Count MPV Immature Gran % (Auto) Neut % (Auto) Lymph % (Auto) Charlton % (Auto) Eos % (Auto) Baso % (Auto) Lymph # (Auto) Charl[place] # (Auto) Eos # (Auto) Baso # (Auto) Abs Immat Gran (auto) Absolute Neuts (auto) Absolute Nucleated RBC Nucleated RBC % (auto) VBG pH VBG pCO2 VBG pO2 VBG HCO3 VBG O2 Saturation VBG Base Excess Sodium Potassium Chloride Carbon Dioxide Anion Gap BUN Creatinine Estim Creat Clear Calc Estimated GFR POC Glucose 397 H* 375 H* 360 H* Random Glucose Lactic Acid Lactic Acid F/U @ 2Hr Calcium Phosphorus Magnesium Total Bilirubin AST ALT Alkaline Phosphatase Total Protein Albumin Urine Osmolality 12/19/21 12/19/21 12/19/21 18:10 19:04 19:58 WBC RBC Hgb Hct MCV MCH MCHC RDW Plt Count MPV Immature Gran % (Auto) Neut % (Auto) Lymph % (Auto) Charl[place] % (Auto) Eos % (Auto) Baso % (Auto) Lymph # (Auto) [place] # (Auto) Eos # (Auto) Baso # (Auto) Abs Immat Gran (auto) Absolute Neuts (auto) Absolute Nucleated RBC Nucleated RBC % (auto) VBG pH VBG pCO2 VBG pO2 VBG HCO3 VBG O2 Saturation VBG Base Excess Sodium Potassium Chloride Carbon Dioxide Anion Gap BUN Creatinine Estim Creat Clear Calc Estimated GFR POC Glucose 351 H* 342 H 299 H Random Glucose Lactic Acid Lactic Acid F/U @ 2Hr Calcium Phosphorus Magnesium Total Bilirubin AST ALT Alkaline Phosphatase Total Protein Albumin Urine Osmolality 12/19/21 12/19/21 12/19/21 21:00 22:15 23:05 WBC RBC Hgb Hct MCV MCH MCHC RDW Plt Count MPV Immature Gran % (Auto) Neut % (Auto) Lymph % (Auto) Charl[place] % (Auto) Eos % (Auto) Baso % (Auto) Lymph # (Auto) [place] # (Auto) Eos # (Auto) Baso # (Auto) Abs Immat Gran (auto) Absolute Neuts (auto) Absolute Nucleated RBC Nucleated RBC % (auto) VBG pH VBG pCO2 VBG pO2 VBG HCO3 VBG O2 Saturation VBG Base Excess Sodium Potassium Chloride Carbon Dioxide Anion Gap BUN Creatinine Estim Creat Clear Calc Estimated GFR POC Glucose 284 H 230 H 197 H Random Glucose Lactic Acid Lactic Acid F/U @ 2Hr Calcium Phosphorus Magnesium Total Bilirubin AST ALT Alkaline Phosphatase Total Protein Albumin Urine Osmolality 12/20/21 12/20/21 12/20/21 00:00 00:58 01:58 WBC RBC Hgb Hct MCV MCH MCHC RDW Plt Count MPV Immature Gran % (Auto) Neut % (Auto) Lymph % (Auto) Charl[place] % (Auto) Eos % (Auto) Baso % (Auto) Lymph # (Auto) [place] # (Auto) Eos # (Auto) Baso # (Auto) Abs Immat Gran (auto) Absolute Neuts (auto) Absolute Nucleated RBC Nucleated RBC % (auto) VBG pH VBG pCO2 VBG pO2 VBG HCO3 VBG O2 Saturation VBG Base Excess Sodium Potassium Chloride Carbon Dioxide Anion Gap BUN Creatinine Estim Creat Clear Calc Estimated GFR POC Glucose 168 H 149 H 148 H Random Glucose Lactic Acid Lactic Acid F/U @ 2Hr Calcium Phosphorus Magnesium Total Bilirubin AST ALT Alkaline Phosphatase Total Protein Albumin Urine Osmolality 12/20/21 12/20/21 12/20/21 03:54 05:33 05:34 WBC 11.3 H RBC 2.51 L D Hgb 7.4 L D Hct 23.1 L D MCV 92.0 D MCH 29.5 MCHC 32.0 RDW 15.2 Plt Count 185 D MPV 9.7 Immature Gran % (Auto) 0.4 Neut % (Auto) 82.8 H Lymph % (Auto) 10.8 L Charlton % (Auto) 5.9 Eos % (Auto) 0.0 Baso % (Auto) 0.1 Lymph # (Auto) 1.2 Charlton # (Auto) 0.7 Eos # (Auto) 0.0 Baso # (Auto) 0.0 Abs Immat Gran (auto) 0.05 H Absolute Neuts (auto) 9.3 H Absolute Nucleated RBC 0.020 H Nucleated RBC % (auto) 0.2 VBG pH VBG pCO2 VBG pO2 VBG HCO3 VBG O2 Saturation VBG Base Excess Sodium 138 Potassium 4.6 D Chloride 104 Carbon Dioxide 21 L Anion Gap 18 BUN 24 H Creatinine 1.48 H Estim Creat Clear Calc 38.1 Estimated GFR 35 POC Glucose 141 H Random Glucose 131 H D Lactic Acid Lactic Acid F/U @ 2Hr Calcium 9.4 Phosphorus 2.7 Magnesium 1.5 L Total Bilirubin 0.5 AST 24 ALT 20 Alkaline Phosphatase 75 D Total Protein 5.8 L Albumin 4.2 Urine Osmolality 12/20/21 12/20/21 12/20/21 05:35 05:57 06:28 WBC 11.6 H RBC 2.54 L Hgb 7.5 L Hct 23.5 L MCV 92.5 MCH 29.5 MCHC 31.9 RDW 15.2 Plt Count 180 MPV 9.5 Immature Gran % (Auto) Neut % (Auto) Lymph % (Auto) [place] % (Auto) Eos % (Auto) Baso % (Auto) Lymph # (Auto) [place] # (Auto) Eos # (Auto) Baso # (Auto) Abs Immat Gran (auto) Absolute Neuts (auto) Absolute Nucleated RBC 0.000 Nucleated RBC % (auto) 0.0 VBG pH 7.55 H VBG pCO2 30 VBG pO2 40 VBG HCO3 26 VBG O2 Saturation 71.0 VBG Base Excess 4.6 Sodium Potassium Chloride Carbon Dioxide Anion Gap BUN Creatinine Estim Creat Clear Calc Estimated GFR POC Glucose 127 H Random Glucose Lactic Acid Lactic Acid F/U @ 2Hr Calcium Phosphorus Magnesium Total Bilirubin AST ALT Alkaline Phosphatase Total Protein Albumin Urine Osmolality 12/20/21 12/20/21 06:50 09:01 WBC RBC Hgb Hct MCV MCH MCHC RDW Plt Count MPV Immature Gran % (Auto) Neut % (Auto) Lymph % (Auto) [place] % (Auto) Eos % (Auto) Baso % (Auto) Lymph # (Auto) [place] # (Auto) Eos # (Auto) Baso # (Auto) Abs Immat Gran (auto) Absolute Neuts (auto) Absolute Nucleated RBC Nucleated RBC % (auto) VBG pH VBG pCO2 VBG pO2 VBG HCO3 VBG O2 Saturation VBG Base Excess Sodium Potassium Chloride Carbon Dioxide Anion Gap BUN Creatinine Estim Creat Clear Calc Estimated GFR POC Glucose 116 H 110 Random Glucose Lactic Acid Lactic Acid F/U @ 2Hr Calcium Phosphorus Magnesium Total Bilirubin AST ALT Alkaline Phosphatase Total Protein Albumin Urine Osmolality Microbiology Microbiology Results: Microbiology 12/19/21 00:57 Blood - Venous Blood Culture - Preliminary No growth after 24 hours. 12/19/21 00:57 Blood - Venous Blood Culture - Preliminary No growth after 24 hours. Progress Note: A&P Assessment and plan (1) Acute kidney injury: Status: Acute (2) Respiratory failure: Status: Acute (3) Shock: Status: Acute (4) Diabetes: Status: Acute (5) Coronary artery disease: Status: Acute (6) COPD (chronic obstructive pulmonary disease): Status: Acute Plan Assessment: 71-year-old lady admitted with acute respiratory failure, metabolic acidosis, hyperkalemia, and acute renal failure requiring intubation and ventilatory support. Plan: Neuro: No acute issues. Cardiac: Shock resolved, titrated off pressors. Underlying CAD. Pulmonary: Acute hypoxic respiratory failure, initially requiring ventilatory support. Extubated 12/20/2021. Continue to titrate off supplemental oxygen as tolerated. Underlying COPD, continue with bronchodilators. Renal: Acute kidney injury and hyperkalemia, improved. Non oliguric. Nephrology service care appreciated. Continue to monitor renal indices and urine output. Endo: No acute issues. GI: No acute issues. ID: Cultures are negative to date. Continue with broad-spectrum antibiotic coverage. Heme/Onc: No acute issues. Psych: No acute issues. Miscellaneous: No acute issues. Prophylaxis: Heparin Diet: regular Critical care time spent: 45 minutes Quality Stroke Does the patient have a stroke diagnosis?: No VTE Prior VTE?: No VTE Risk Level:: Medical - moderate - high VTE Device Contraindication: Treatment Not Indicated VTE Drug Contraindication: N/A - Med Ordered
[2021-12-20 11:13] LABS: Glucose, Whole Blood 82 mg/dL (60-115)
--- NOTE | 2021-12-20 12:03 | P.PNNP_ITS ---
Subjective Subjective Date of Service: 12/20/21 Physical Exam Vital Signs: Vital Signs: Last Vital Signs Temp 100.2 F 12/20/21 12:00 Pulse 88 12/20/21 12:00 Resp 17 12/20/21 12:00 BP 127/61 12/20/21 12:00 Pulse Ox 92 12/20/21 12:00 Oxygen Flow Rate 4 12/19/21 00:29 BMI result Body Mass Index 39.9 Const: General: no acute distress, alert and awake Eyes: Sclerae: sclerae normal EOM: EOMs intact bilaterally Neck: Neck: Yes no lymphadenopathy, Yes trachea midline and Yes supple Resp: Effort & Inspection: normal respiratory effort and no respiratory distress Auscultation: clear to auscultation bilaterally Cardio: Rate: regular rate Rhythm: regular rhythm Heart sounds: no gallops, no murmurs and no rubs GI: Palpation (GI): Soft to palpation and Other GI palpation findings present ( Nontender) Auscultation: normal bowel sounds Extrem: General: Yes no pedal edema, No clubbing and No cyanosis Objective Data Labs CBC & Chem 7: 12/20/21 06:28 12/20/21 05:34 Labs: Laboratory Results - last 24 hr 12/19/21 12/19/21 12/19/21 06:09 09:34 12:07 WBC RBC Hgb Hct MCV MCH MCHC RDW Plt Count MPV Immature Gran % (Auto) Neut % (Auto) Lymph % (Auto) [place] % (Auto) Eos % (Auto) Baso % (Auto) Lymph # (Auto) [place] # (Auto) Eos # (Auto) Baso # (Auto) Abs Immat Gran (auto) Absolute Neuts (auto) Absolute Nucleated RBC Nucleated RBC % (auto) VBG pH VBG pCO2 VBG pO2 VBG HCO3 VBG O2 Saturation VBG Base Excess Sodium 134 L Potassium 7.6 H* 6.2 H* Chloride 101 Carbon Dioxide 20 L Anion Gap 19 BUN 31 H Creatinine 2.08 H Estim Creat Clear Calc 27.1 Estimated GFR 24 POC Glucose Random Glucose 566 H* 498 H* Lactic Acid Lactic Acid F/U @ 2Hr Calcium 9.2 Phosphorus Magnesium Total Bilirubin AST ALT Alkaline Phosphatase Total Protein Albumin Urine Osmolality 382 12/19/21 12/19/21 12/19/21 12:07 13:02 14:00 WBC RBC Hgb Hct MCV MCH MCHC RDW Plt Count MPV Immature Gran % (Auto) Neut % (Auto) Lymph % (Auto) [place] % (Auto) Eos % (Auto) Baso % (Auto) Lymph # (Auto) [place] # (Auto) Eos # (Auto) Baso # (Auto) Abs Immat Gran (auto) Absolute Neuts (auto) Absolute Nucleated RBC Nucleated RBC % (auto) VBG pH VBG pCO2 VBG pO2 VBG HCO3 VBG O2 Saturation VBG Base Excess Sodium Potassium Chloride Carbon Dioxide Anion Gap BUN Creatinine Estim Creat Clear Calc Estimated GFR POC Glucose 434 H* 406 H* Random Glucose Lactic Acid 4.9 H* Lactic Acid F/U @ 2Hr Calcium Phosphorus Magnesium Total Bilirubin AST ALT Alkaline Phosphatase Total Protein Albumin Urine Osmolality 12/19/21 12/19/21 12/19/21 14:30 15:14 16:01 WBC RBC Hgb Hct MCV MCH MCHC RDW Plt Count MPV Immature Gran % (Auto) Neut % (Auto) Lymph % (Auto) [place] % (Auto) Eos % (Auto) Baso % (Auto) Lymph # (Auto) [place] # (Auto) Eos # (Auto) Baso # (Auto) Abs Immat Gran (auto) Absolute Neuts (auto) Absolute Nucleated RBC Nucleated RBC % (auto) VBG pH VBG pCO2 VBG pO2 VBG HCO3 VBG O2 Saturation VBG Base Excess Sodium Potassium Chloride Carbon Dioxide Anion Gap BUN Creatinine Estim Creat Clear Calc Estimated GFR POC Glucose 397 H* 375 H* Random Glucose Lactic Acid Lactic Acid F/U @ 2Hr 3.5 H* Calcium Phosphorus Magnesium Total Bilirubin AST ALT Alkaline Phosphatase Total Protein Albumin Urine Osmolality 12/19/21 12/19/21 12/19/21 17:06 18:10 19:04 WBC RBC Hgb Hct MCV MCH MCHC RDW Plt Count MPV Immature Gran % (Auto) Neut % (Auto) Lymph % (Auto) [place] % (Auto) Eos % (Auto) Baso % (Auto) Lymph # (Auto) [place] # (Auto) Eos # (Auto) Baso # (Auto) Abs Immat Gran (auto) Absolute Neuts (auto) Absolute Nucleated RBC Nucleated RBC % (auto) VBG pH VBG pCO2 VBG pO2 VBG HCO3 VBG O2 Saturation VBG Base Excess Sodium Potassium Chloride Carbon Dioxide Anion Gap BUN Creatinine Estim Creat Clear Calc Estimated GFR POC Glucose 360 H* 351 H* 342 H Random Glucose Lactic Acid Lactic Acid F/U @ 2Hr Calcium Phosphorus Magnesium Total Bilirubin AST ALT Alkaline Phosphatase Total Protein Albumin Urine Osmolality 12/19/21 12/19/21 12/19/21 19:58 21:00 22:15 WBC RBC Hgb Hct MCV MCH MCHC RDW Plt Count MPV Immature Gran % (Auto) Neut % (Auto) Lymph % (Auto) [place] % (Auto) Eos % (Auto) Baso % (Auto) Lymph # (Auto) [place] # (Auto) Eos # (Auto) Baso # (Auto) Abs Immat Gran (auto) Absolute Neuts (auto) Absolute Nucleated RBC Nucleated RBC % (auto) VBG pH VBG pCO2 VBG pO2 VBG HCO3 VBG O2 Saturation VBG Base Excess Sodium Potassium Chloride Carbon Dioxide Anion Gap BUN Creatinine Estim Creat Clear Calc Estimated GFR POC Glucose 299 H 284 H 230 H Random Glucose Lactic Acid Lactic Acid F/U @ 2Hr Calcium Phosphorus Magnesium Total Bilirubin AST ALT Alkaline Phosphatase Total Protein Albumin Urine Osmolality 12/19/21 12/20/21 12/20/21 23:05 00:00 00:58 WBC RBC Hgb Hct MCV MCH MCHC RDW Plt Count MPV Immature Gran % (Auto) Neut % (Auto) Lymph % (Auto) [place] % (Auto) Eos % (Auto) Baso % (Auto) Lymph # (Auto) [place] # (Auto) Eos # (Auto) Baso # (Auto) Abs Immat Gran (auto) Absolute Neuts (auto) Absolute Nucleated RBC Nucleated RBC % (auto) VBG pH VBG pCO2 VBG pO2 VBG HCO3 VBG O2 Saturation VBG Base Excess Sodium Potassium Chloride Carbon Dioxide Anion Gap BUN Creatinine Estim Creat Clear Calc Estimated GFR POC Glucose 197 H 168 H 149 H Random Glucose Lactic Acid Lactic Acid F/U @ 2Hr Calcium Phosphorus Magnesium Total Bilirubin AST ALT Alkaline Phosphatase Total Protein Albumin Urine Osmolality 12/20/21 12/20/21 12/20/21 01:58 03:54 05:33 WBC 11.3 H RBC 2.51 L D Hgb 7.4 L D Hct 23.1 L D MCV 92.0 D MCH 29.5 MCHC 32.0 RDW 15.2 Plt Count 185 D MPV 9.7 Immature Gran % (Auto) 0.4 Neut % (Auto) 82.8 H Lymph % (Auto) 10.8 L [place] % (Auto) 5.9 Eos % (Auto) 0.0 Baso % (Auto) 0.1 Lymph # (Auto) 1.2 [place] # (Auto) 0.7 Eos # (Auto) 0.0 Baso # (Auto) 0.0 Abs Immat Gran (auto) 0.05 H Absolute Neuts (auto) 9.3 H Absolute Nucleated RBC 0.020 H Nucleated RBC % (auto) 0.2 VBG pH VBG pCO2 VBG pO2 VBG HCO3 VBG O2 Saturation VBG Base Excess Sodium Potassium Chloride Carbon Dioxide Anion Gap BUN Creatinine Estim Creat Clear Calc Estimated GFR POC Glucose 148 H 141 H Random Glucose Lactic Acid Lactic Acid F/U @ 2Hr Calcium Phosphorus Magnesium Total Bilirubin AST ALT Alkaline Phosphatase Total Protein Albumin Urine Osmolality 12/20/21 12/20/21 12/20/21 05:34 05:35 05:57 WBC RBC Hgb Hct MCV MCH MCHC RDW Plt Count MPV Immature Gran % (Auto) Neut % (Auto) Lymph % (Auto) [place] % (Auto) Eos % (Auto) Baso % (Auto) Lymph # (Auto) [place] # (Auto) Eos # (Auto) Baso # (Auto) Abs Immat Gran (auto) Absolute Neuts (auto) Absolute Nucleated RBC Nucleated RBC % (auto) VBG pH 7.55 H VBG pCO2 30 VBG pO2 40 VBG HCO3 26 VBG O2 Saturation 71.0 VBG Base Excess 4.6 Sodium 138 Potassium 4.6 D Chloride 104 Carbon Dioxide 21 L Anion Gap 18 BUN 24 H Creatinine 1.48 H Estim Creat Clear Calc 38.1 Estimated GFR 35 POC Glucose 127 H Random Glucose 131 H D Lactic Acid Lactic Acid F/U @ 2Hr Calcium 9.4 Phosphorus 2.7 Magnesium 1.5 L Total Bilirubin 0.5 AST 24 ALT 20 Alkaline Phosphatase 75 D Total Protein 5.8 L Albumin 4.2 Urine Osmolality 12/20/21 12/20/21 12/20/21 06:28 06:50 09:01 WBC 11.6 H RBC 2.54 L Hgb 7.5 L Hct 23.5 L MCV 92.5 MCH 29.5 MCHC 31.9 RDW 15.2 Plt Count 180 MPV 9.5 Immature Gran % (Auto) Neut % (Auto) Lymph % (Auto) [place] % (Auto) Eos % (Auto) Baso % (Auto) Lymph # (Auto) [place] # (Auto) Eos # (Auto) Baso # (Auto) Abs Immat Gran (auto) Absolute Neuts (auto) Absolute Nucleated RBC 0.000 Nucleated RBC % (auto) 0.0 VBG pH VBG pCO2 VBG pO2 VBG HCO3 VBG O2 Saturation VBG Base Excess Sodium Potassium Chloride Carbon Dioxide Anion Gap BUN Creatinine Estim Creat Clear Calc Estimated GFR POC Glucose 116 H 110 Random Glucose Lactic Acid Lactic Acid F/U @ 2Hr Calcium Phosphorus Magnesium Total Bilirubin AST ALT Alkaline Phosphatase Total Protein Albumin Urine Osmolality 12/20/21 11:09 WBC RBC Hgb Hct MCV MCH MCHC RDW Plt Count MPV Immature Gran % (Auto) Neut % (Auto) Lymph % (Auto) [place] % (Auto) Eos % (Auto) Baso % (Auto) Lymph # (Auto) [place] # (Auto) Eos # (Auto) Baso # (Auto) Abs Immat Gran (auto) Absolute Neuts (auto) Absolute Nucleated RBC Nucleated RBC % (auto) VBG pH VBG pCO2 VBG pO2 VBG HCO3 VBG O2 Saturation VBG Base Excess Sodium Potassium Chloride Carbon Dioxide Anion Gap BUN Creatinine Estim Creat Clear Calc Estimated GFR POC Glucose 82 Random Glucose Lactic Acid Lactic Acid F/U @ 2Hr Calcium Phosphorus Magnesium Total Bilirubin AST ALT Alkaline Phosphatase Total Protein Albumin Urine Osmolality Microbiology Microbiology Results: Microbiology 12/19/21 00:57 Blood - Venous Blood Culture - Preliminary No growth after 24 hours. 12/19/21 00:57 Blood - Venous Blood Culture - Preliminary No growth after 24 hours. Procedures Date of Service Date of Service: 12/20/21 Assessment & Plan Assessment and plan (1) Acute kidney injury: Status: Acute Assessment and Plan: resolving AMOS no new suggestions K also normalized will sign off call for ? (2) Respiratory failure: Status: Acute (3) Shock: Status: Acute (4) Diabetes: Status: Acute (5) Coronary artery disease: Status: Acute (6) COPD (chronic obstructive pulmonary disease): Status: Acute Time Spent With Patient Time: Total time spent is greater than 50% in coordination of care (as documented) at patient's floor/unit and/or counseling patient: Progress Note: Quality Stroke Does the patient have a stroke diagnosis?: No
[2021-12-20 16:17] LABS: Glucose, Whole Blood 70 mg/dL (60-115)
[2021-12-20] MEDS: Albuterol Sulfate (0.083%) 2.5 MG/3 ML VIAL.NEB INHALE (19:49)
[2021-12-20 21:05] LABS: Glucose, Whole Blood 94 mg/dL (60-115)
--- NOTE | 2021-12-20 23:39 | PC.NURSE ---
Lasix 40mg IVP x1 d/t SOB and new fine crackles at bases of lungs. Fernando Piña NP aware
[2021-12-20] MEDS: Furosemide 40 MG/4 ML VIAL IVPUSH (23:45)
[2021-12-21] VITALS (14 sets, daily range): BP systolic 112–159; BP diastolic 48–74; PULSE 74–90; RESP 15–25; TEMP 36.6–37.3; O2SAT 86–97; BMI 38.8
[2021-12-21] MEDS: Piperacillin Sodium/Tazobactam 3.375 GM in 0.9 % Sodium Chloride 50 ML IV ×4 (02:47→19:22)
[2021-12-21 07:08] LABS: MANUAL DIFF FLAG NO
[2021-12-21 07:11] LABS: Basophils Percent Auto 0.4 % (0-2); Eosinophils Percent Auto 0.2 % (0-4); Hematocrit 26.9 % (37.0-47.0); Hemoglobin 8.3 g/dl (12.0-16.0); Imm Gran Abs Auto 0.06 X10*3/uL (0.00-0.03); Imm Gran Pct Auto 0.6 % (0.0-0.4); Lymphocytes Absolute Auto 2.6 X10*3/uL (1.2-4.9); Lymphocytes Percent Auto 24.8 % (20-40); Mean Corpuscular HGB Conc 30.9 g/dl (31.0-35.0); Mean Corpuscular Volume 94.1 fL (80.0-98.0); Mean Platelet Volume 9.4 fL (9.4-12.3); Monocytes Absolute Auto 0.5 X10*3/uL (0.1-1.2); Monocytes Percent Auto 5.3 % (2-11); Neutrophils Absolute Auto 7.1 x10*3/uL (2.0-8.3); Neutrophils Percent Auto 68.7 % (45-73); Platelet Count 208 X10*3/uL (160-400); Red Blood Count 2.86 X10*6/uL (4.20-5.50); Red Cell Distribution Width 15.4 % (11.0-16.0); White Blood Count 10.3 X10*3/uL (4.8-10.8)
[2021-12-21 07:13] LABS: VBG Base Excess 6.4 mmol/L; VBG HCO3 31 mmol/L (22-26); VBG pCO2 45 mmHg; VBG pH 7.44 (7.32-7.43); VBG pO2 51 mmHg
[2021-12-21 07:14] LABS: Venous Blood Gas Refer to POC result
[2021-12-21 07:28] LABS: Albumin Level 4.3 g/dL (3.5-5.0); Anion Gap 17 (12-20); Blood Urea Nitrogen 29 mg/dL (9-16); Calcium 9.9 mg/dL (8.4-10.2); Carbon Dioxide 28 mmol/L (22-29); Chloride 102 mmol/L (96-108); Creatinine Clr Calc Pharmacy 32.7; Estimated Glomerular Filt Rate 29; Glucose Random 83 mg/dL (60-115); Phosphorus 5.7 mg/dL (2.7-4.5); Potassium 4.6 mmol/L (3.3-5.1); Sodium 142 mmol/L (135-145)
[2021-12-21 07:33] LABS: Vancomycin Trough 9.6 mcg/mL (10.0-20.0)
[2021-12-21 07:43] LABS: Glucose, Whole Blood 86 mg/dL (60-115)
--- NOTE | 2021-12-21 07:51 | HE.PHANOTE ---
JARAD Vogt; Patient's trough returned at 9.6. Based on her new SCR of 1.73 (15% rise from day prior), the dose should be 1000mg q24h. I have opted to go with 750mg q24h with another random scheduled for tomorrow. If SCr drops again, then we can consider increasing the dose. Patient got 2000mg load, so there is a worry that the dose could dump. Based on patients vitals, labs, and that the patient was extubated, they look like they are doing better clinically. Will follow up tomorrow Thanks Warren
--- NOTE | 2021-12-21 08:06 | P.PNNP_ITS ---
Subjective Subjective Date of Service: 12/21/21 Physical Exam Vital Signs: Vital Signs: Last Vital Signs Temp 99.0 F 12/21/21 07:00 Pulse 78 12/21/21 07:00 Resp 15 12/21/21 07:00 BP 136/67 12/21/21 07:00 Pulse Ox 95 12/21/21 07:00 Oxygen Flow Rate 4 12/19/21 00:29 BMI result Body Mass Index 38.8 Eyes: Sclerae: sclerae normal EOM: EOMs intact bilaterally Neck: Neck: Yes trachea midline and Yes supple Resp: Effort & Inspection: normal respiratory effort and no respiratory dist ress Auscultation: clear to auscultation bilaterally Cardio: Rate: regular rate Rhythm: regular rhythm Heart sounds: no gallops, no murmurs and no rubs GI: Palpation (GI): Soft to palpation and Other GI palpation findings present ( Nontender) Auscultation: normal bowel sounds Extrem: General: Yes no pedal edema, No clubbing and No cyanosis Objective Data Labs CBC & Chem 7: 12/21/21 07:04 12/21/21 07:04 Labs: Laboratory Results - last 24 hr 12/20/21 12/20/21 12/20/21 09:01 11:09 16:13 WBC RBC Hgb Hct MCV MCH MCHC RDW Plt Count MPV Immature Gran % (Auto) Neut % (Auto) Lymph % (Auto) [place] % (Auto) Eos % (Auto) Baso % (Auto) Lymph # (Auto) [place] # (Auto) Eos # (Auto) Baso # (Auto) Abs Immat Gran (auto) Absolute Neuts (auto) Absolute Nucleated RBC Nucleated RBC % (auto) VBG pH VBG pCO2 VBG pO2 VBG HCO3 VBG O2 Saturation VBG Base Excess Sodium Potassium Chloride Carbon Dioxide Anion Gap BUN Creatinine Estim Creat Clear Calc Estimated GFR POC Glucose 110 82 70 Random Glucose Calcium Phosphorus Magnesium Albumin Vancomycin Trough 12/20/21 12/21/21 12/21/21 20:58 07:04 07:04 WBC 10.3 RBC 2.86 L Hgb 8.3 L Hct 26.9 L MCV 94.1 MCH 29.0 MCHC 30.9 L RDW 15.4 Plt Count 208 MPV 9.4 Immature Gran % (Auto) 0.6 H Neut % (Auto) 68.7 Lymph % (Auto) 24.8 [place] % (Auto) 5.3 Eos % (Auto) 0.2 Baso % (Auto) 0.4 Lymph # (Auto) 2.6 [place] # (Auto) 0.5 Eos # (Auto) 0.0 Baso # (Auto) 0.0 Abs Immat Gran (auto) 0.06 H Absolute Neuts (auto) 7.1 Absolute Nucleated RBC 0.000 Nucleated RBC % (auto) 0.0 VBG pH VBG pCO2 VBG pO2 VBG HCO3 VBG O2 Saturation VBG Base Excess Sodium Potassium Chloride Carbon Dioxide Anion Gap BUN Creatinine Estim Creat Clear Calc Estimated GFR POC Glucose 94 Random Glucose Calcium Phosphorus Magnesium Albumin Vancomycin Trough 9.6 L 12/21/21 12/21/21 12/21/21 07:04 07:07 07:39 WBC RBC Hgb Hct MCV MCH MCHC RDW Plt Count MPV Immature Gran % (Auto) Neut % (Auto) Lymph % (Auto) [place] % (Auto) Eos % (Auto) Baso % (Auto) Lymph # (Auto) [place] # (Auto) Eos # (Auto) Baso # (Auto) Abs Immat Gran (auto) Absolute Neuts (auto) Absolute Nucleated RBC Nucleated RBC % (auto) VBG pH 7.44 H VBG pCO2 45 VBG pO2 51 VBG HCO3 31 H VBG O2 Saturation 79.0 VBG Base Excess 6.4 Sodium 142 Potassium 4.6 Chloride 102 Carbon Dioxide 28 Anion Gap 17 BUN 29 H Creatinine 1.73 H Estim Creat Clear Calc 32.7 Estimated GFR 29 POC Glucose 86 Random Glucose 83 Calcium 9.9 Phosphorus 5.7 H Magnesium 2.0 Albumin 4.3 Vancomycin Trough Microbiology Microbiology Results: Microbiology 12/19/21 00:57 Blood - Venous Blood Culture - Preliminary No growth after 48 hours. 12/19/21 00:57 Blood - Venous Blood Culture - Preliminary No growth after 48 hours. Procedures Date of Service Date of Service: 12/21/21 Assessment & Plan Assessment and plan (1) Acute kidney injury: Status: Acute Assessment and Plan: creat had improved yesterday no has increased with low UO may be related to worsened septic shock FENA is c/w ATN no indication for dialysis today (2) Respiratory failure: Status: Acute (3) Shock: Status: Acute (4) Diabetes: Status: Acute (5) Coronary artery disease: Status: Acute (6) COPD (chronic obstructive pulmonary disease): Status: Acute Time Spent With Patient Time: Total time spent is greater than 50% in coordination of care (as documented) at patient's floor/unit and/or counseling patient: Progress Note: Quality Stroke Does the patient have a stroke diagnosis?: No
[2021-12-21] MEDS: Heparin Sodium,Porcine 5,000 UNIT/ML VIAL 5000 UNIT SUBCUT ×3 (08:08→21:16)
--- NOTE | 2021-12-21 09:22 | PM.CCPN ---
Subjective Subjective Date of Service: 12/21/21 Interval History: 71-year-old lady with underlying history of COPD, CAD status post stenting, diabetes mellitus,, left zone knee replacement admitted on 12/19/2021 with dyspnea and tachypnea. On ER evaluation patient was noted to be in respiratory distress with significant metabolic acidosis, acute kidney failure, and hyperkalemia requiring intubation and ventilatory support. Patient was transferred to intensive care unit and started on empiric antibiotics and vasopressor support. Her renal function and electrolytes improved overnight. She was titrated off other pressor support and extubated uneventfully on 12/20/2021. No events overnight. Critical Care Time (minutes): 0 Physical Exam Vital Signs: Vital Signs: Last Vital Signs Temp 99.1 F 12/21/21 08:59 Pulse 87 12/21/21 08:59 Resp 20 12/21/21 08:59 BP 125/48 L 12/21/21 08:59 Pulse Ox 86 L 12/21/21 08:59 Oxygen Flow Rate 4 12/19/21 00:29 BMI result Body Mass Index 38.8 Const: General: no acute distress, alert and awake Eyes: Sclerae: sclerae normal EOM: EOMs intact bilaterally Neck: Neck: Yes no lymphadenopathy, Yes trachea midline and Yes supple Resp: Effort & Inspection: normal respiratory effort and no respiratory distress Auscultation: clear to auscultation bilaterally Cardio: Rate: regular rate Rhythm: regular rhythm Heart sounds: no gallops, no murmurs and no rubs GI: Palpation (GI): Soft to palpation and Other GI palpation findings present ( Nontender) Auscultation: normal bowel sounds Extrem: General: Yes no pedal edema, No clubbing and No cyanosis Objective Data Labs CBC & Chem 7: 12/21/21 07:04 12/21/21 07:04 Labs: Laboratory Results - last 24 hr 12/20/21 12/20/21 12/20/21 11:09 16:13 20:58 WBC RBC Hgb Hct MCV MCH MCHC RDW Plt Count MPV Immature Gran % (Auto) Neut % (Auto) Lymph % (Auto) [place] % (Auto) Eos % (Auto) Baso % (Auto) Lymph # (Auto) [place] # (Auto) Eos # (Auto) Baso # (Auto) Abs Immat Gran (auto) Absolute Neuts (auto) Absolute Nucleated RBC Nucleated RBC % (auto) VBG pH VBG pCO2 VBG pO2 VBG HCO3 VBG O2 Saturation VBG Base Excess Sodium Potassium Chloride Carbon Dioxide Anion Gap BUN Creatinine Estim Creat Clear Calc Estimated GFR POC Glucose 82 70 94 Random Glucose Calcium Phosphorus Magnesium Albumin Vancomycin Trough 12/21/21 12/21/21 12/21/21 07:04 07:04 07:04 WBC 10.3 RBC 2.86 L Hgb 8.3 L Hct 26.9 L MCV 94.1 MCH 29.0 MCHC 30.9 L RDW 15.4 Plt Count 208 MPV 9.4 Immature Gran % (Auto) 0.6 H Neut % (Auto) 68.7 Lymph % (Auto) 24.8 [place] % (Auto) 5.3 Eos % (Auto) 0.2 Baso % (Auto) 0.4 Lymph # (Auto) 2.6 [place] # (Auto) 0.5 Eos # (Auto) 0.0 Baso # (Auto) 0.0 Abs Immat Gran (auto) 0.06 H Absolute Neuts (auto) 7.1 Absolute Nucleated RBC 0.000 Nucleated RBC % (auto) 0.0 VBG pH VBG pCO2 VBG pO2 VBG HCO3 VBG O2 Saturation VBG Base Excess Sodium 142 Potassium 4.6 Chloride 102 Carbon Dioxide 28 Anion Gap 17 BUN 29 H Creatinine 1.73 H Estim Creat Clear Calc 32.7 Estimated GFR 29 POC Glucose Random Glucose 83 Calcium 9.9 Phosphorus 5.7 H Magnesium 2.0 Albumin 4.3 Vancomycin Trough 9.6 L 12/21/21 12/21/21 07:07 07:39 WBC RBC Hgb Hct MCV MCH MCHC RDW Plt Count MPV Immature Gran % (Auto) Neut % (Auto) Lymph % (Auto) [place] % (Auto) Eos % (Auto) Baso % (Auto) Lymph # (Auto) [place] # (Auto) Eos # (Auto) Baso # (Auto) Abs Immat Gran (auto) Absolute Neuts (auto) Absolute Nucleated RBC Nucleated RBC % (auto) VBG pH 7.44 H VBG pCO2 45 VBG pO2 51 VBG HCO3 31 H VBG O2 Saturation 79.0 VBG Base Excess 6.4 Sodium Potassium Chloride Carbon Dioxide Anion Gap BUN Creatinine Estim Creat Clear Calc Estimated GFR POC Glucose 86 Random Glucose Calcium Phosphorus Magnesium Albumin Vancomycin Trough Microbiology Microbiology Results: Microbiology 12/19/21 00:57 Blood - Venous Blood Culture - Preliminary No growth after 48 hours. 12/19/21 00:57 Blood - Venous Blood Culture - Preliminary No growth after 48 hours. Progress Note: A&P Assessment and plan (1) COPD (chronic obstructive pulmonary disease): Status: Acute (2) Acute kidney injury: Status: Acute (3) Diabetes: Status: Acute (4) Coronary artery disease: Status: Acute Plan Assessment: 71-year-old lady admitted with acute respiratory failure, metabolic acidosis, hyperkalemia, and acute renal failure requiring intubation and ventilatory support. Plan: Neuro: No acute issues. Cardiac: Shock resolved, titrated off pressors. Underlying CAD. Pulmonary: Acute hypoxic respiratory failure, initially requiring ventilatory support. Extubated 12/20/2021. Continue to titrate off supplemental oxygen as tolerated. Underlying COPD, continue with bronchodilators. Renal: Acute kidney injury and hyperkalemia, improved. Non oliguric. Nephrology service care appreciated. Continue to monitor renal indices and urine output. Endo: No acute issues. GI: No acute issues. ID: Cultures are negative to date. Unclear source of likely prior septic shock. Would suggest to continue with broad-spectrum antibiotic coverage for 5-7 days total. Heme/Onc: No acute issues. Psych: No acute issues. Miscellaneous: No acute issues. Being transferred to telemetry medical [facility]. Prophylaxis: Heparin Diet: regular Quality Stroke Does the patient have a stroke diagnosis?: No VTE Prior VTE?: No VTE Risk Level:: Medical - moderate - high VTE Device Contraindication: Treatment Not Indicated VTE Drug Contraindication: N/A - Med Ordered
[2021-12-21] MEDS: vancomycin HCL 750 MG in 0.9 % Sodium Chloride 250 ML 265 MG IV (09:35)
--- NOTE | 2021-12-21 10:33 | PM.EVENT ---
Event Note Date of Service: 12/22/21 Event Note: Transfer from ICU. Discussed case with ICU attending. Septic shock with no obvious source. Note available from ICU attending.
[2021-12-21 11:07] LABS: Glucose, Whole Blood 175 mg/dL (60-115)
[2021-12-21] MEDS: Insulin Lispro 100 UNIT/ML 3 ML VIAL SUBCUT ×2 (11:42→21:16)
--- NOTE | 2021-12-21 15:51 | PC.NURSE ---
Late entry Pt trejo catheter removed at [address] Copeland. Pt voided 150cc at 1400 and then 350cc at 1530. Triple lumen removed per verbal order from Dr. Copeland. Pt A&O with no complaints. Report given to [facility] RN.
[2021-12-21 15:59] LABS: Glucose, Whole Blood 136 mg/dL (60-115)
[2021-12-21] MEDS: Acetaminophen 325 MG TABLET 650 MG PO (19:18)
[2021-12-21 20:13] LABS: Glucose, Whole Blood 177 mg/dL (60-115)
[2021-12-21] MEDS: Melatonin 3 MG TABLET 6 MG PO (22:32)
[2021-12-22] VITALS (9 sets, daily range): BP systolic 119–143; BP diastolic 61–66; PULSE 71–88; RESP 15–20; TEMP 36–37.2; O2SAT 95–98; BMI 36.5
[2021-12-22] MEDS: Piperacillin Sodium/Tazobactam 3.375 GM in 0.9 % Sodium Chloride 50 ML IV ×4 (01:56→20:30)
[2021-12-22 07:13] LABS: MANUAL DIFF FLAG NO
[2021-12-22 07:37] LABS: Basophils Absolute Auto 0.1 X10*3/uL (0.0-0.2); Basophils Percent Auto 0.6 % (0-2); Eosinophils Percent Auto 0.1 % (0-4); Hematocrit 31.3 % (37.0-47.0); Hemoglobin 9.6 g/dl (12.0-16.0); Imm Gran Pct Auto 1.1 % (0.0-0.4); Lymphocytes Absolute Auto 2.2 X10*3/uL (1.2-4.9); Lymphocytes Percent Auto 23.7 % (20-40); Mean Corpuscular HGB Conc 30.7 g/dl (31.0-35.0); Mean Corpuscular Volume 94.6 fL (80.0-98.0); Mean Platelet Volume 9.9 fL (9.4-12.3); Monocytes Absolute Auto 0.6 X10*3/uL (0.1-1.2); Monocytes Percent Auto 6.5 % (2-11); Neutrophils Absolute Auto 6.2 x10*3/uL (2.0-8.3); Platelet Count 241 X10*3/uL (160-400); Red Blood Count 3.31 X10*6/uL (4.20-5.50); Red Cell Distribution Width 15.4 % (11.0-16.0); White Blood Count 9.1 X10*3/uL (4.8-10.8)
[2021-12-22 07:46] LABS: Anion Gap 16 (12-20); Blood Urea Nitrogen 33 mg/dL (9-16); Calcium 9.8 mg/dL (8.4-10.2); Carbon Dioxide 25 mmol/L (22-29); Chloride 104 mmol/L (96-108); Creatinine Clr Calc Pharmacy 38.3; Estimated Glomerular Filt Rate 36; Glucose Random 124 mg/dL (60-115); Phosphorus 5.3 mg/dL (2.7-4.5); Sodium 140 mmol/L (135-145)
[2021-12-22 07:54] LABS: Glucose, Whole Blood 126 mg/dL (60-115)
[2021-12-22 08:43] LABS: Vancomycin Random 10.6 mcg/mL (15-20)
[2021-12-22] MEDS: Heparin Sodium,Porcine 5,000 UNIT/ML VIAL 5000 UNIT SUBCUT ×3 (08:49→20:30)
--- NOTE | 2021-12-22 09:07 | HE.PHANOTE ---
Addendum entered by Chastity Santos RPh 12/23/21 07:54: Scr is 1.34 today, will continue current regimen until next trough on 12/24 @ 0800. Original Note: VANCOMYCIN DOSING Based on trough from AM and better SCr dose increased to [id number]. Predicted AUCI of 479. Next Trough 12/24 @ 0800
--- NOTE | 2021-12-22 09:10 | HO.PM.IMPN ---
Subjective Subjective Date of Service: 12/22/21 Review of Systems Follow up acute respiratory distress Awake and eating breakfast Denies chest pain, shortness of breath, nausea, vomiting, diarrhea Physical Exam Vital Signs: Vital Signs: Last Vital Signs Temp 97.2 F 12/22/21 07:17 Pulse 75 12/22/21 07:17 Resp 17 12/22/21 07:17 BP 119/61 12/22/21 07:17 Pulse Ox 97 12/22/21 07:17 Oxygen Flow Rate 4 12/19/21 00:29 BMI result Body Mass Index 36.5 Appearing in no acute distress lung sounds exp wheezing heart regular rate rhythm, clear S1, S2 positive bowel sounds, abdomen is soft, nontender neuro patient is alert x3, no focal deficits Objective Data Active Medications Acetaminophen (Acetaminophen 325 Mg Tablet) 650 mg PO Q4H PRN PRN Reason: Pain, Mild (Pain Scale 1-3) Last Admin: 12/21/21 19:18 Dose: 650 mg Documented by: MEKA Albuterol Sulfate (Albuterol Sulfate (0.083%) 2.5 Mg/3 Ml Vial.Neb) 2.5 mg INHALE Q4H PRN PRN Reason: Shortness of Breath/Wheezing Last Admin: 12/20/21 19:49 Dose: 2.5 mg Documented by: STEPHEN Heparin Sodium (Porcine) (Heparin Sodium,Porcine 5,000 Unit/Ml Vial) 5,000 unit SUBCUT TID [facility] Last Admin: 12/22/21 08:49 Dose: 5,000 unit Documented by: CRISTIAN Piperacillin Sod/Tazobactam (Sod 3.375 gm/ Sodium Chloride) 50 mls @ 100 mls/hr IV Q6H [facility] Last Admin: 12/22/21 08:49 Dose: 100 mls/hr Documented by: CRISTIAN Vancomycin HCl 1,000 mg/ (Sodium Chloride) 270 mls @ 270 mls/hr IV Q24H [facility] Insulin Human Lispro (Insulin Lispro 100 Unit/Ml 3 Ml Vial) 0 unit SUBCUT QIDACHS [facility]; Protocol Last Admin: 12/22/21 08:09 Dose: Not Given Documented by: CRISTIAN Non-Admin Reason: No Insulin Coverage Melatonin (Melatonin 3 Mg Tablet) 6 mg PO BEDTIME PRN PRN Reason: Sleep Last Admin: 12/21/21 22:32 Dose: 6 mg Documented by: MEKA Pharmacy Consult (Consult Rx Vancomycin Dosing) 1 each MISCELLANE DAILY PRN PRN Reason: Consult order Labs CBC & Chem 7: 12/22/21 06:55 12/22/21 06:55 Labs: Laboratory Results - last 24 hr 12/21/21 12/21/21 12/21/21 11:03 15:53 20:07 MCV MCH MCHC RDW Plt Count MPV Immature Gran % (Auto) Neut % (Auto) Lymph % (Auto) [place] % (Auto) Eos % (Auto) Baso % (Auto) Lymph # (Auto) [place] # (Auto) Eos # (Auto) Baso # (Auto) Abs Immat Gran (auto) Absolute Neuts (auto) Absolute Nucleated RBC Nucleated RBC % (auto) Anion Gap Estim Creat Clear Calc Estimated GFR POC Glucose 175 H 136 H 177 H Random Glucose Calcium Phosphorus Magnesium Random Vancomycin 12/22/21 12/22/21 12/22/21 06:55 06:55 06:55 MCV 94.6 MCH 29.0 MCHC 30.7 L RDW 15.4 Plt Count 241 MPV 9.9 Immature Gran % (Auto) 1.1 H Neut % (Auto) 68.0 Lymph % (Auto) 23.7 [place] % (Auto) 6.5 Eos % (Auto) 0.1 Baso % (Auto) 0.6 Lymph # (Auto) 2.2 [place] # (Auto) 0.6 Eos # (Auto) 0.0 Baso # (Auto) 0.1 Abs Immat Gran (auto) 0.10 H Absolute Neuts (auto) 6.2 Absolute Nucleated RBC 0.000 Nucleated RBC % (auto) 0.0 Anion Gap 16 Estim Creat Clear Calc 38.3 Estimated GFR 36 POC Glucose Random Glucose 124 H Calcium 9.8 Phosphorus 5.3 H Magnesium 2.0 Random Vancomycin 10.6 L 12/22/21 07:19 MCV MCH MCHC RDW Plt Count MPV Immature Gran % (Auto) Neut % (Auto) Lymph % (Auto) [place] % (Auto) Eos % (Auto) Baso % (Auto) Lymph # (Auto) [place] # (Auto) Eos # (Auto) Baso # (Auto) Abs Immat Gran (auto) Absolute Neuts (auto) Absolute Nucleated RBC Nucleated RBC % (auto) Anion Gap Estim Creat Clear Calc Estimated GFR POC Glucose 126 H Random Glucose Calcium Phosphorus Magnesium Random Vancomycin Assessment and Plan (1) Shock: Status: Acute Plan 71-year-old lady with underlying history of COPD, CAD status post stenting, diabetes mellitus,, left zone knee replacement admitted on 12/19/2021 with dyspnea and tachypnea.? On ER evaluation patient was noted to be in respiratory distress with significant metabolic acidosis, acute kidney failure, and hyperkalemia requiring intubation and ventilatory support.? Patient was transferred to intensive care unit and started on empiric antibiotics and vasopressor support.? Her renal function and electrolytes improved overnight.? She was titrated off other pressor support and extubated uneventfully on 12/20/2021. [place] [facility] [place]. Septic shock. Resolved Hypotension requiring pressor support in the ICU stable at this point No absolute source, flu, covid, us, cxr neg negative blood cultures Acute hypoxic respiratory failure. Initially presented with dyspnea with history of COPD Initially admitted to the ICU, required ventilatory support and subsequently extubated on 12/20/2021 Treated with steroids and nebulization treatments No pneumonia on scans on ra at this time COPD. Some exp wheezing repeat CXR neg for acute abnormality scheduled duonebs prednisone Metabolic acidosis. Resolved inital bg 7.12/49/96/16 secondary to sepsis treated with sodium bicarb Hyperkalemia. Resolved Initially 8.1, contributing to worsening renal function Treated with Lokelma AMOS. Non oliguric Likely secondary to septic shock Creatinine trending down Avoid nephrotoxins Normocytic anemia no bleeding stable HH Diabetes Sliding scale ada diet CAD continue BB Mental health continue home medications Iron def anemia with no blood loss, chronic Iron supplementation DVT prophylaxis with heparin Attending Dr. Cobb Continue hospitalization for treatment of mild COPD exacerbation, transferred from ICU on 12/21/2021, continuing to monitor acute renal failure, physical therapy consultation pending Quality Stroke Does the patient have a stroke diagnosis?: No VTE Prior VTE?: No VTE Risk Level:: Medical - moderate - high VTE Device Contraindication: Treatment Not Indicated VTE Drug Contraindication: N/A - Med Ordered
--- NOTE | 2021-12-22 09:44 | PM.PNNEP ---
Subjective Subjective Date of Service: 12/22/21 Interval history: 71-year-old lady with underlying history of COPD, CAD status post stenting, diabetes mellitus,, left zone knee replacement admitted on 12/19/2021 with dyspnea and tachypnea. On ER evaluation patient was noted to be in respiratory distress with significant metabolic acidosis, acute kidney failure, and hyperkalemia requiring intubation and ventilatory support. Patient was transferred to intensive care unit and started on empiric antibiotics and vasopressor support. Her renal function and electrolytes improved overnight. She was titrated off other pressor support and extubated uneventfully on 12/20/2021. Now downgraded out of ICU and did well overnight. S-Cr downtrending. No events overnight. Physical Exam Vital Signs: Vital Signs: Last Vital Signs Temp 97.2 F 12/22/21 07:17 Pulse 75 12/22/21 07:17 Resp 17 12/22/21 07:17 BP 119/61 12/22/21 07:17 Pulse Ox 97 12/22/21 07:17 Oxygen Flow Rate 4 12/19/21 00:29 BMI result Body Mass Index 36.5 Const: General: cooperative, comfortable and no acute distress Orientation/consciousness: oriented to person, oriented to place, oriented to time and patient oriented x3 HEENT: Head: Yes normal to inspection Neck: Neck: Yes no JVD Resp: Effort & Inspection: normal respiratory effort and able to speak in complete sentences Auscultation: wheezes Cardio: Jugular venous distension: no JVD Rate: regular rate Rhythm: regular rhythm Heart sounds: S1 normal heart sound present and S2 normal heart sound present GI: Auscultation: normal bowel sounds Neuro: General: oriented to person, oriented to place, oriented to time and patient oriented x3 Extrem: General: Yes normal to inspection and Yes no pedal edema Objective Data Labs CBC & Chem 7: 12/22/21 06:55 12/22/21 06:55 Labs: Laboratory Results - last 24 hr 12/21/21 12/21/21 12/21/21 11:03 15:53 20:07 WBC RBC Hgb Hct MCV MCH MCHC RDW Plt Count MPV Immature Gran % (Auto) Neut % (Auto) Lymph % (Auto) [place] % (Auto) Eos % (Auto) Baso % (Auto) Lymph # (Auto) [place] # (Auto) Eos # (Auto) Baso # (Auto) Abs Immat Gran (auto) Absolute Neuts (auto) Absolute Nucleated RBC Nucleated RBC % (auto) Sodium Potassium Chloride Carbon Dioxide Anion Gap BUN Creatinine Estim Creat Clear Calc Estimated GFR POC Glucose 175 H 136 H 177 H Random Glucose Calcium Phosphorus Magnesium Random Vancomycin 12/22/21 12/22/21 12/22/21 06:55 06:55 06:55 WBC 9.1 RBC 3.31 L Hgb 9.6 L Hct 31.3 L MCV 94.6 MCH 29.0 MCHC 30.7 L RDW 15.4 Plt Count 241 MPV 9.9 Immature Gran % (Auto) 1.1 H Neut % (Auto) 68.0 Lymph % (Auto) 23.7 [place] % (Auto) 6.5 Eos % (Auto) 0.1 Baso % (Auto) 0.6 Lymph # (Auto) 2.2 [place] # (Auto) 0.6 Eos # (Auto) 0.0 Baso # (Auto) 0.1 Abs Immat Gran (auto) 0.10 H Absolute Neuts (auto) 6.2 Absolute Nucleated RBC 0.000 Nucleated RBC % (auto) 0.0 Sodium 140 Potassium 5.0 Chloride 104 Carbon Dioxide 25 Anion Gap 16 BUN 33 H Creatinine 1.43 H Estim Creat Clear Calc 38.3 Estimated GFR 36 POC Glucose Random Glucose 124 H Calcium 9.8 Phosphorus 5.3 H Magnesium 2.0 Random Vancomycin 10.6 L 12/22/21 07:19 WBC RBC Hgb Hct MCV MCH MCHC RDW Plt Count MPV Immature Gran % (Auto) Neut % (Auto) Lymph % (Auto) [place] % (Auto) Eos % (Auto) Baso % (Auto) Lymph # (Auto) [place] # (Auto) Eos # (Auto) Baso # (Auto) Abs Immat Gran (auto) Absolute Neuts (auto) Absolute Nucleated RBC Nucleated RBC % (auto) Sodium Potassium Chloride Carbon Dioxide Anion Gap BUN Creatinine Estim Creat Clear Calc Estimated GFR POC Glucose 126 H Random Glucose Calcium Phosphorus Magnesium Random Vancomycin Microbiology Microbiology Results: Microbiology 12/19/21 00:57 Blood - Venous Blood Culture - Preliminary No growth after 48 hours. 12/19/21 00:57 Blood - Venous Blood Culture - Preliminary No growth after 48 hours. Procedures Date of Service Date of Service: 04/18/22 Assessment & Plan Assessment and plan (1) Acute kidney injury: Status: Acute (2) Acute hyperkalemia: Status: Acute Plan 71-year-old lady with underlying history of COPD, CAD status post stenting, diabetes mellitus,, left zone knee replacement admitted on 12/19/2021 with dyspnea and tachypnea. On ER evaluation patient was noted to be in respiratory distress with significant metabolic acidosis, acute kidney failure, and hyperkalemia requiring intubation and ventilatory support. Patient was transferred to intensive care unit and started on empiric antibiotics and vasopressor support. Her renal function and electrolytes improved overnight. She was titrated off other pressor support and extubated uneventfully on 12/20/2021. Hyperkalemia - Resolved. AOMS - S-Cr downtrending. Avoidance of nephrotoxic agents, i.e nsaids, acei/arb, IV contrast, renal dosing abx. Monitor vancomycin levels. Renal dosing. Hypotension - patient normotensive at this time. Anemia - check Iron panel No events overnight. Time Spent With Patient Time: Total time spent is greater than 50% in coordination of care (as documented) at patient's floor/unit and/or counseling patient: Progress Note: Quality Stroke Does the patient have a stroke diagnosis?: No
[2021-12-22] MEDS: vancomycin HCL 1,000 MG in 0.9 % Sodium Chloride 250 ML 270 MG IV (09:49)
[2021-12-22] MEDS: Albuterol Sulfate (0.083%) 2.5 MG/3 ML VIAL.NEB INHALE ×3 (11:02→20:03)
--- NOTE | 2021-12-22 11:06 | MHC.CM.PN ---
Met with pt to discuss d/c planning: pt resides alone, has life alert and [facility] services 2x weekly. MD is Dr. Brunner, Vax x3, uses a walker and has no other barriers to care. HCP on file and verified. Pt will call family to transport home.
[2021-12-22 11:17] LABS: Glucose, Whole Blood 122 mg/dL (60-115)
--- NOTE | 2021-12-22 12:34 | MHC.CLN ---
F/U PATIENT EXTUBATED 12/20. DIET=DIABETIC 1800 KCAL. TRANSFERRED FROM ICU TO C 12/21. FAIR PO INTAKE. WEIGHT VARIANCE OF 5.7 KG X 1 DAY WITH LIKELY CONTRIBUTOR OF DIFFERENT BED SCALES. ADD GLUCERNA BID TO PROMOTE NUTRITIONAL INTAKE. PROVIDES 474 KCAL, [address] TO FOLLOW WEEKLY.
[2021-12-22 16:00] LABS: Glucose, Whole Blood 201 mg/dL (60-115)
[2021-12-22] MEDS: Insulin Lispro 100 UNIT/ML 3 ML VIAL SUBCUT (16:10)
[2021-12-22] MEDS: Omeprazole 20 MG CAPSULE.DR PO (16:10)
[2021-12-22 19:58] LABS: Glucose, Whole Blood 148 mg/dL (60-115)
[2021-12-22] MEDS: Ferrous Sulfate 324 MG TABLET.DR PO (20:29)
[2021-12-22] MEDS: traZODone HCL 50 MG TABLET PO (20:29)
[2021-12-22] MEDS: Sertraline HCL 50 MG TABLET PO (20:29)
[2021-12-22] MEDS: Acetaminophen 325 MG TABLET 650 MG PO (23:27)
[2021-12-23] VITALS (9 sets, daily range): BP systolic 129–157; BP diastolic 61–72; PULSE 69–84; RESP 18–20; TEMP 36.1–37.1; O2SAT 90–98; BMI 36.6
[2021-12-23] MEDS: Piperacillin Sodium/Tazobactam 3.375 GM in 0.9 % Sodium Chloride 50 ML IV ×3 (02:26→14:31)
[2021-12-23] MEDS: Omeprazole 20 MG CAPSULE.DR PO ×2 (05:24→18:02)
[2021-12-23 07:11] LABS: Glucose, Whole Blood 123 mg/dL (60-115)
[2021-12-23 07:35] LABS: Anion Gap 16 (12-20); Blood Urea Nitrogen 31 mg/dL (9-16); Calcium 9.6 mg/dL (8.4-10.2); Carbon Dioxide 24 mmol/L (22-29); Chloride 106 mmol/L (96-108); Estimated Glomerular Filt Rate 39; Glucose Random 115 mg/dL (60-115); Potassium 4.6 mmol/L (3.3-5.1); Sodium 141 mmol/L (135-145)
[2021-12-23] MEDS: Albuterol Sulfate (0.083%) 2.5 MG/3 ML VIAL.NEB INHALE ×4 (07:54→18:53)
[2021-12-23] MEDS: Fluticasone/Vilanterol 200/25 BLST.W.DEV 1 PUFF INHALE (07:54)
[2021-12-23] MEDS: Heparin Sodium,Porcine 5,000 UNIT/ML VIAL 5000 UNIT SUBCUT ×3 (08:27→19:48)
[2021-12-23] MEDS: predniSONE 20 MG TABLET PO (08:27)
[2021-12-23] MEDS: Ferrous Sulfate 324 MG TABLET.DR PO ×2 (08:27→19:48)
[2021-12-23] MEDS: Metoprolol Tartrate 25 MG TABLET PO (08:27)
[2021-12-23] MEDS: Acetaminophen 325 MG TABLET 650 MG PO (08:46)
--- NOTE | 2021-12-23 09:34 | PM.PNNEP ---
Subjective Subjective Date of Service: 12/23/21 Interval history: S-Cr downtrending. No events overnight. Physical Exam Vital Signs: Vital Signs: Last Vital Signs Temp 97 F 12/23/21 06:59 Pulse 82 12/23/21 07:56 Resp 20 12/23/21 07:56 BP 147/68 H 12/23/21 06:59 Pulse Ox 95 12/23/21 06:59 Oxygen Flow Rate 4 12/19/21 00:29 BMI result Body Mass Index 36.6 Const: General: cooperative, comfortable and no acute distress Orientation/consciousness: patient oriented x3 HEENT: Head: Yes normal to inspection, Yes normocephalic and Yes atraumatic Neck: Neck: Yes no JVD Resp: Effort & Inspection: normal respiratory effort and able to speak in complete sentences Auscultation: clear to auscultation bilaterally Cardio: Jugular venous distension: no JVD Rate: regular rate Rhythm: regular rhythm Heart sounds: S1 normal heart sound present and S2 normal heart sound present GI: Auscultation: normal bowel sounds Neuro: General: patient oriented x3 Extrem: General: Yes no clubbing, cyanosis or edema Objective Data Labs CBC & Chem 7: 12/22/21 06:55 12/23/21 06:11 Labs: Laboratory Results - last 24 hr 12/22/21 12/22/21 12/22/21 11:13 15:56 19:53 Sodium Potassium Chloride Carbon Dioxide Anion Gap BUN Creatinine Estim Creat Clear Calc Estimated GFR POC Glucose 122 H 201 H 148 H Random Glucose Calcium 12/23/21 12/23/21 06:11 06:59 Sodium 141 Potassium 4.6 Chloride 106 Carbon Dioxide 24 Anion Gap 16 BUN 31 H Creatinine 1.34 Estim Creat Clear Calc 41.0 Estimated GFR 39 POC Glucose 123 H Random Glucose 115 Calcium 9.6 Microbiology Microbiology Results: Microbiology 12/19/21 00:57 Blood - Venous Blood Culture - Preliminary No growth after 48 hours. 12/19/21 00:57 Blood - Venous Blood Culture - Preliminary No growth after 48 hours. Procedures Date of Service Date of Service: 12/23/21 Assessment & Plan Assessment and plan (1) Acute kidney injury: Status: Acute (2) Acute hyperkalemia: Status: Acute Plan 71-year-old lady with underlying history of COPD, CAD status post stenting, diabetes mellitus,, left zone knee replacement admitted on 12/19/2021 with dyspnea and tachypnea.? On ER evaluation patient was noted to be in respiratory distress with significant metabolic acidosis, acute kidney failure, and hyperkalemia requiring intubation and ventilatory support.? Patient was transferred to intensive care unit and started on empiric antibiotics and vasopressor support.? Her renal function and electrolytes improved overnight.? She was titrated off other pressor support and extubated uneventfully on 12/20/2021. Downgraded out of ICU. Doing well with no reported overnight issues. S-Cr down trending. Hyperkalemia - Resolved. AMOS - S-Cr downtrending. Consistent with ATN. Avoidance of nephrotoxic agents, i.e nsaids, acei/arb, IV contrast, renal dosing abx. Monitor vancomycin levels. Renal dosing. Hypotension - patient normotensive at this time. Anemia - check Iron panel Time Spent With Patient Time: Total time spent is greater than 50% in coordination of care (as documented) at patient's floor/unit and/or counseling patient: Progress Note: Quality Stroke Does the patient have a stroke diagnosis?: No
[2021-12-23 09:59] LABS: Iron 67 mcg/dL (30-160); Percent Iron Saturation 25 % (15-50); Total Iron Binding Capacity 263 mcg/dL (228-428); Unsaturated Iron Binding 196 ug/dL
[2021-12-23] MEDS: vancomycin HCL 1,000 MG in 0.9 % Sodium Chloride 250 ML 270 MG IV (10:27)
--- NOTE | 2021-12-23 11:16 | P.DS_ITS ---
DS: Providers Provider Date of admission: 12/19/21 03:03 Primary care physician: Unknown Physician Consults: 12/19/21 07:58 Consult to Nephrology Routine Consulting Provider: [facility] Reason for consultation: AMOS, hyperkalemia Has provider been notified: No Attending physician on discharge: Nehemias Pineda Discharging clinician: Nikki Ramos DS: Diagnosis Discharge Diagnosis (1) Acute kidney injury: Status: Resolved (2) Acute hyperkalemia: Status: Resolved DS: Summary Hospital Course Hospital Course: HP as per admitting povider The patient is a 61-year-old female with past medical history of COPD, CAD status post stent, hypertension, diabetes, hyperlipidemia and recent left total knee replacement who presented to the emergency room? with complaints of dyspnea.? Patient reported she was seen by primary care? provider on 12/17/21 and was? diagnosed with COPD exacerbation and started on azithromycin and Solu-Medrol. ? Tonight she presented with worsening dyspnea,? and tachypnea.? Initially the patient was alert and oriented satting 95% on room air, but later she continued to have a difficult time breathing,? with worsening? mental status required? emergent intubation in the emergency room for respiratory distress.?Laboratory data was significant for? VBGs: 7.37/22/152/13. ? WBC 13.4,? potassium 7.6, serum bicarb 17, BUN 26, creatinine 1.59, glucose 336,? lactic acid 5.3, BNP? 212.?In the emergency room she received? 2 L normal saline, total of 4 of Ativan, 10mg albuterol,? 1.25 levalbuterol,? 125 of Solu-Medrol, Levaquin, magnesium,? Lasix 40, calcium 2 g, bicarb,? 10 units of regular insulin,? and amp of dextrose Imaging:?Chest Xray:? with evidence of pulm congestion . Septic shock. Resolved Hypotension requiring pressor support in the ICU stable at this point No absolute source, flu, covid, us, cxr neg negative blood cultures Acute hypoxic respiratory failure.? Initially presented with dyspnea with history of COPD Initially admitted to the ICU, required ventilatory support and subsequently extubated on 12/20/2021 Treated with steroids and nebulization treatments No pneumonia on scans on ra at this time COPD. Some exp wheezing no pneumonia on cxr treated with scheduled duonebs and prednisone continue prednisone Metabolic acidosis. Resolved inital bg 7.12/49/96/16 secondary to sepsis treated with sodium bicarb Hyperkalemia. Resolved Initially 8.1, contributing to worsening renal function Treated with Lokelma AMOS.? Non oliguric. 2.08-1.34 Likely secondary to septic shock Creatinine trending down Avoid nephrotoxins Normocytic anemia no bleeding stable HH Diabetes continue home medications ada diet CAD continue BB Mental health continue home medications Iron def anemia with no blood loss, chronic Iron supplementation Less than 30 day stay is anticipated Seen/examined. Medically acceptable for D/C Time Spent with Patient Time attestation: Total time spent providing and/or coordinating discharge services: Physical Exam Vital Signs: Vital Signs: Last Vital Signs Temp 97 F 12/23/21 11:04 Pulse 69 12/23/21 11:04 Resp 18 12/23/21 11:14 BP 129/61 12/23/21 11:04 Pulse Ox 93 12/23/21 11:04 Oxygen Flow Rate 4 12/19/21 00:29 BMI result Body Mass Index 36.6 Appearing in no acute distress head is normocephalic atraumatic eyes pupils are PERRLA sclera is anicteric mouth throat mucous membranes are intact and moist neck is supple no lymphadenopathy, no JVD noted lung sounds are clear to auscultation heart regular rate rhythm, clear S1, S2 positive bowel sounds, abdomen is soft, nontender neuro patient is alert x3, no focal deficits DS: Data Data Completed and Pending Completed studies during hospitalization [Text1]: Procedures Replacement of Left Knee Joint with Synthetic Substitute, Uncemented, Open Approach (11/11/21) Labs on day of discharge: Laboratory Results - last 24 hr 12/22/21 12/22/21 12/22/21 11:13 15:56 19:53 Sodium Potassium Chloride Carbon Dioxide Anion Gap BUN Creatinine Estim Creat Clear Calc Estimated GFR POC Glucose 122 H 201 H 148 H Random Glucose Calcium Iron TIBC % Saturation Unsat Iron Binding 12/23/21 12/23/21 06:11 06:59 Sodium 141 Potassium 4.6 Chloride 106 Carbon Dioxide 24 Anion Gap 16 BUN 31 H Creatinine 1.34 Estim Creat Clear Calc 41.0 Estimated GFR 39 POC Glucose 123 H Random Glucose 115 Calcium 9.6 Iron 67 TIBC 263 % Saturation 25 Unsat Iron Binding 196 Preliminary micro results at discharge 12/19/21 00:57 Blood Culture - Preliminary Blood - Venous No growth after 48 hours. 12/19/21 00:57 Blood Culture - Preliminary Blood - Venous No growth after 48 hours. Discharge Plan Discharge Patient Disposition: Xfer [facility] Discharge Diagnosis: Septic shock Acute hypoxic respiratory failure COPD exacerbation Referrals: [facility] [Outside] - 1 Week Discharge Medications: New acetaminophen-codeine 300-15 mg tablet 1 tab PO Q6H PRN (Reason: pain (scale score 4-6)) Qty: 30 0RF Continued (DME) walker Misc See Rx Instructions .MEDSUPPLY Qty: 1 0RF Rx Instructions: Folding Front wheeled walker atorvastatin 80 mg tablet 1 tab PO BEDTIME 0RF Breo Ellipta 200-25 mcg/dose blister with device 1 puff inhalation DAILY 0RF trazodone 50 mg tablet 1 tab PO BEDTIME 0RF oxybutynin chloride 10 mg tablet extended release 24hr 1 tab PO DAILY@1200 0RF cyanocobalamin (vitamin B-12) 1,000 mcg tablet 1 tab PO QAM 0RF pantoprazole 40 mg tablet,delayed release (DR/EC) 1 tab PO BID 0RF ferrous sulfate 325 mg (65 mg iron) tablet 1 tab PO BID 0RF metformin 1,000 mg tablet 1 tab PO BID 0RF nitroglycerin 0.4 mg tablet, sublingual 1 tab sublingual NEEDED PRN (Reason: Chest Pain) 0RF sertraline 50 mg tablet 1 tab PO BEDTIME 0RF metoprolol tartrate 25 mg tablet 1 tab PO DAILY 0RF calcium carbonate 500 mg calcium (1,250 mg) tablet 1 tab PO QAM 0RF albuterol sulfate [ProAir HFA] 90 mcg/actuation HFA aerosol inhaler 2 puff inhalation Q4-6H PRN (Reason: Shortness Of Breath Or Wheezing) 0RF aspirin 325 mg Tablet 325 mg PO BID 42 Days Qty: 84 0RF Rx Instructions: asa for dvt ppx x 42 days azithromycin 250 mg Tablet 250 mg PO DAILY 0RF Rx Instructions: start on day 2 of therapy prednisone 20 mg Tablet 20 mg PO DAILY 0RF glipizide 5 mg tablet 5 mg PO DAILY 0RF Discharge Orders: Discharge Order (Routine); Ordered 12/24/21 Ordered By: Carmelo Javier Diet: advance to usual diet Activity on Discharge: As tolerated Stand Alone Forms: Patient Portal Discharge page Care Plan Goals: resolution of symptoms Health Concerns: Septic shock Acute hypoxic respiratory failure COPD exacerbation Plan of Treatment: Follow up with your primary care provider Assessment: See discharge summary Discharge Date/Time: 12/24/21 13:15
[2021-12-23 11:17] LABS: Glucose, Whole Blood 220 mg/dL (60-115)
[2021-12-23] MEDS: Insulin Lispro 100 UNIT/ML 3 ML VIAL SUBCUT ×3 (12:15→19:48)
--- NOTE | 2021-12-23 12:20 | MHC.CM.PN ---
CM met with Patient and her family at bedside and addressed PT's recommendation for STR. Patient is in agreement with a SNF search but does NOT want [facility]. CM will follow.
[2021-12-23 15:17] LABS: COVID-19 Test Negative (Negative); IDNOW Serial# 16C4AD1C
[2021-12-23 15:47] LABS: Glucose, Whole Blood 215 mg/dL (60-115)
--- NOTE | 2021-12-23 15:49 | P.PNIM_ITS ---
Subjective Subjective Date of Service: 12/23/21 Review of Systems Follow up? acute respiratory distress Awake and eating breakfast Denies chest pain, shortness of breath, nausea, vomiting, diarrhea Physical Exam Vital Signs: Vital Signs: Last Vital Signs Temp 98.7 F 12/23/21 15:12 Pulse 75 12/23/21 15:12 Resp 18 12/23/21 15:12 BP 157/72 H 12/23/21 15:12 Pulse Ox 90 L 12/23/21 15:12 Oxygen Flow Rate 4 12/19/21 00:29 BMI result Body Mass Index 36.6 Appearing in no acute distress lung sounds are clear to auscultation heart regular rate rhythm, clear S1, S2 positive bowel sounds, abdomen is soft, nontender neuro patient is alert x3, no focal deficits Objective Data Active Medications Acetaminophen (Acetaminophen 325 Mg Tablet) 650 mg PO Q4H PRN PRN Reason: Pain, Mild (Pain Scale 1-3) Last Admin: 12/23/21 08:46 Dose: 650 mg Documented by: JESSA Albuterol Sulfate (Albuterol Sulfate (0.083%) 2.5 Mg/3 Ml Vial.Neb) 2.5 mg INHALE Q4H PRN PRN Reason: Shortness of Breath/Wheezing Last Admin: 12/20/21 19:49 Dose: 2.5 mg Documented by: STEPHEN Albuterol Sulfate (Albuterol Sulfate (0.083%) 2.5 Mg/3 Ml Vial.Neb) 2.5 mg INHALE RQ4H WHILE AWAKE [facility] Last Admin: 12/23/21 14:43 Dose: 2.5 mg Documented by: VIKI Ferrous Sulfate (Ferrous Sulfate 324 Mg Tablet.Dr) 324 mg PO BID [facility] Last Admin: 12/23/21 08:27 Dose: 324 mg Documented by: JESSA Fluticasone/Vilanterol (Fluticasone/Vilanterol 200/25 Blst.W.Dev) 1 puff INHALE RDAILY [facility] Last Admin: 12/23/21 07:54 Dose: 1 puff Documented by: VIKI Heparin Sodium (Porcine) (Heparin Sodium,Porcine 5,000 Unit/Ml Vial) 5,000 unit SUBCUT TID [facility] Last Admin: 12/23/21 14:31 Dose: 5,000 unit Documented by: JESSA Piperacillin Sod/Tazobactam (Sod 3.375 gm/ Sodium Chloride) 50 mls @ 100 mls/hr IV Q6H [facility] Last Infusion: 12/23/21 15:18 Dose: 0 mls/hr Documented by: JESSA Vancomycin HCl 1,000 mg/ (Sodium Chloride) 270 mls @ 270 mls/hr IV Q24H [facility] Last Infusion: 12/23/21 12:11 Dose: 0 mls/hr Documented by: JESSA Insulin Human Lispro (Insulin Lispro 100 Unit/Ml 3 Ml Vial) 0 unit SUBCUT QIDACHS [facility]; Protocol Last Admin: 12/23/21 12:15 Dose: 4 unit Documented by: JESSA Melatonin (Melatonin 3 Mg Tablet) 6 mg PO BEDTIME PRN PRN Reason: Sleep Last Admin: 12/21/21 22:32 Dose: 6 mg Documented by: MEKA Metoprolol Tartrate (Metoprolol Tartrate 25 Mg Tablet) 25 mg PO DAILY [facility]; Protocol Last Admin: 12/23/21 08:27 Dose: 25 mg Documented by: JESSA Omeprazole (Omeprazole 20 Mg Capsule.Dr) 20 mg PO BID@0630,1630 [facility] Last Admin: 12/23/21 05:24 Dose: 20 mg Documented by: ANNIE Pharmacy Consult (Consult Rx Vancomycin Dosing) 1 each MISCELLANE DAILY PRN PRN Reason: Consult order Prednisone (Prednisone 20 Mg Tablet) 20 mg PO DAILY [facility] Last Admin: 12/23/21 08:27 Dose: 20 mg Documented by: JESSA Sertraline HCl (Sertraline Hcl 50 Mg Tablet) 50 mg PO BEDTIME [facility] Last Admin: 12/22/21 20:29 Dose: 50 mg Documented by: ANNIE Trazodone HCl (Trazodone Hcl 50 Mg Tablet) 50 mg PO BEDTIME [facility] Last Admin: 12/22/21 20:29 Dose: 50 mg Documented by: ANNIE Labs CBC & Chem 7: 12/22/21 06:55 12/23/21 06:11 Labs: Laboratory Results - last 24 hr 12/22/21 12/22/21 12/23/21 15:56 19:53 06:11 Anion Gap 16 Estim Creat Clear Calc 41.0 Estimated GFR 39 POC Glucose 201 H 148 H Random Glucose 115 Calcium 9.6 Iron 67 TIBC 263 % Saturation 25 Unsat Iron Binding 196 COVID-19 ([facility]) COVID-19 Clin Com 12/23/21 12/23/21 12/23/21 06:59 11:04 14:45 Anion Gap Estim Creat Clear Calc Estimated GFR POC Glucose 123 H 220 H Random Glucose Calcium Iron TIBC % Saturation Unsat Iron Binding COVID-19 ([facility]) Negative COVID-19 Clin Com See Note 12/23/21 15:15 Anion Gap Estim Creat Clear Calc Estimated GFR POC Glucose 215 H Random Glucose Calcium Iron TIBC % Saturation Unsat Iron Binding COVID-19 ([facility]) COVID-19 Clin Com Assessment and Plan (1) Shock: Status: Acute Plan 71-year-old lady with underlying history of COPD, CAD status post stenting, diabetes mellitus,, left zone knee replacement admitted on 12/19/2021 with dyspnea and tachypnea.? On ER evaluation patient was noted to be in respiratory distress with significant metabolic acidosis, acute kidney failure, and hyperkalemia requiring intubation and ventilatory support.? Patient was transferred to intensive care unit and started on empiric antibiotics and vasopressor support.? Her renal function and electrolytes improved overnight.? She was titrated off other pressor support and extubated uneventfully on 12/20/2021. transferred to [facility] on 12/22. Septic shock. Resolved Hypotension requiring pressor support in the ICU stable at this point No absolute source, flu, covid, us, cxr neg negative blood cultures Acute hypoxic respiratory failure. Initially presented with dyspnea with history of COPD Initially admitted to the ICU, required ventilatory support and subsequently extubated on 12/20/2021 Treated with steroids and nebulization treatments No pneumonia on scans on ra at this time COPD. Some exp wheezing repeat CXR neg for acute abnormality scheduled duonebs prednisone Metabolic acidosis. Resolved inital bg 7.12/49/96/16 secondary to sepsis treated with sodium bicarb Hyperkalemia. Resolved Initially 8.1, contributing to worsening renal function Treated with Lokelma AMOS. Non oliguric Likely secondary to septic shock Creatinine trending down Avoid nephrotoxins Normocytic anemia no bleeding stable HH Diabetes Sliding scale ada diet CAD continue BB Mental health continue home medications Iron def anemia with no blood loss, chronic Iron supplementation DVT prophylaxis with heparin Attending Dr. Pineda DISPO plan for dc when auth comes through Continue hospitalization for treatment of mild COPD exacerbation, transferred from ICU on 12/21/2021, continuing to monitor acute renal failure, physical therapy rec STR Quality Stroke Does the patient have a stroke diagnosis?: No VTE Prior VTE?: No VTE Risk Level:: Medical - moderate - high VTE Device Contraindication: Treatment Not Indicated VTE Drug Contraindication: N/A - Med Ordered
--- NOTE | 2021-12-23 18:49 | PC.NURSE ---
Pt was evaluated by PT today. They instructed that the pt can use a walker to ambulate and should have standby assist. Pt insisting on MACKENZIE not be in the room after educating her on safety precautions and fall risks. Pt is also requesting that her bed alarm be turned off.
[2021-12-23 19:14] LABS: Glucose, Whole Blood 261 mg/dL (60-115)
[2021-12-23] MEDS: traZODone HCL 50 MG TABLET PO (19:49)
[2021-12-23] MEDS: Sertraline HCL 50 MG TABLET PO (19:49)
[2021-12-23] MEDS: Melatonin 3 MG TABLET 6 MG PO (23:36)
[2021-12-24 03:31] VITALS: BP 142/63; PULSE 84; RESP 18; TEMP 36.1; O2SAT 92
[2021-12-24 06:00] VITALS: BMI 37.4
[2021-12-24] MEDS: Omeprazole 20 MG CAPSULE.DR PO (06:12)
[2021-12-24 07:11] VITALS: BP 131/62; PULSE 78; RESP 18; TEMP 36.6; O2SAT 94
[2021-12-24 07:17] LABS: Glucose, Whole Blood 117 mg/dL (60-115)
[2021-12-24 07:39] VITALS: PULSE 78; O2SAT 94
[2021-12-24] MEDS: Fluticasone/Vilanterol 200/25 BLST.W.DEV 1 PUFF INHALE (07:39)
[2021-12-24] MEDS: Albuterol Sulfate (0.083%) 2.5 MG/3 ML VIAL.NEB INHALE ×2 (07:39→10:54)
[2021-12-24] MEDS: Ferrous Sulfate 324 MG TABLET.DR PO (08:35)
[2021-12-24] MEDS: Metoprolol Tartrate 25 MG TABLET PO (08:35)
[2021-12-24] MEDS: predniSONE 20 MG TABLET PO (08:36)
[2021-12-24] MEDS: Heparin Sodium,Porcine 5,000 UNIT/ML VIAL 5000 UNIT SUBCUT (08:36)
--- NOTE | 2021-12-24 09:39 | P.PNNP_ITS ---
Subjective Subjective Date of Service: 12/24/21 Interval history: S-Cr downtrending per labs on 12/23. No events overnight. Physical Exam 2 Vital Signs: Vital Signs: Last Vital Signs Temp 97.9 F 12/24/21 07:11 Pulse 78 12/24/21 07:39 Resp 18 12/24/21 07:11 BP 131/62 12/24/21 07:11 Pulse Ox 94 12/24/21 07:11 Oxygen Flow Rate 4 12/19/21 00:29 BMI result Body Mass Index 37.4 Const: General: cooperative, comfortable and no acute distress Orientation/consciousness: patient oriented x3 HEENT: Head: Yes normal to inspection, Yes normocephalic and Yes atraumatic Neck: Neck: Yes no JVD Resp: Effort & Inspection: normal respiratory effort Auscultation: clear to auscultation bilaterally Cardio: Jugular venous distension: no JVD Rate: regular rate Rhythm: regular rhythm Heart sounds: S1 normal heart sound present and S2 normal heart sound present GI: Auscultation: normal bowel sounds Neuro: General: patient oriented x3 Extrem: General: Yes no clubbing, cyanosis or edema Objective Data Labs CBC & Chem 7: 12/22/21 06:55 12/23/21 06:11 Labs: Laboratory Results - last 24 hr 12/23/21 12/23/21 12/23/21 06:11 11:04 14:45 POC Glucose 220 H Iron 67 TIBC 263 % Saturation 25 Unsat Iron Binding 196 COVID-19 ([facility]) Negative COVID-19 Clin Com See Note 12/23/21 12/23/21 12/24/21 15:15 19:10 07:15 POC Glucose 215 H 261 H 117 H Iron TIBC % Saturation Unsat Iron Binding COVID-19 ([facility]) COVID-19 Clin Com Microbiology Microbiology Results: Microbiology 12/19/21 00:57 Blood - Venous Blood Culture - Final No growth after 5 days. 12/19/21 00:57 Blood - Venous Blood Culture - Final No growth after 5 days. Procedures Date of Service Date of Service: 12/24/21 Assessment & Plan Assessment and plan (1) Acute kidney injury: Status: Acute (2) Acute hyperkalemia: Status: Acute Plan 71-year-old lady with underlying history of COPD, CAD status post stenting, diabetes mellitus,, left zone knee replacement admitted on 12/19/2021 with dyspnea and tachypnea.? On ER evaluation patient was noted to be in respiratory distress with significant metabolic acidosis, acute kidney failure, and hyperkalemia requiring intubation and ventilatory support.? Patient was transferred to intensive care unit and started on empiric antibiotics and vasopressor support.? Her renal function and electrolytes have been improving. She was titrated off other pressor support and extubated uneventfully on 12/20/2021. Downgraded out of ICU. Doing well with no reported overnight issues. Hyperkalemia - Resolved. AMOS - S-Cr downtrending. Consistent with ATN. Avoidance of nephrotoxic agents, i.e nsaids, acei/arb, IV contrast, renal dosing abx. Hypotension - patient normotensive at this time. Anemia - check Iron panel - TSAT = 25%. No need for IV iron. Time Spent With Patient Time: Total time spent is greater than 50% in coordination of care (as documented) at patient's floor/unit and/or counseling patient: Progress Note: Quality Stroke Does the patient have a stroke diagnosis?: No
--- NOTE | 2021-12-24 09:55 | MHC.CM.PN ---
Per MD, Patient will be medically cleared for dc to STR/SNF today. Patient will dc to [facility] today at 1PM, via [facility]. Last IMM addressed on 12/22/21. Patient and her Daughter/HCP/Adali at [phone] are aware of and in agreement with the dc plan.
[2021-12-24 10:16] VITALS: PULSE 78
[2021-12-24] MEDS: Acetaminophen 325 MG TABLET 650 MG PO (10:48)
[2021-12-24 10:56] VITALS: PULSE 84; RESP 18; O2SAT 95
[2021-12-24 10:58] VITALS: BP 136/60; PULSE 67; RESP 18; TEMP 36.7; O2SAT 95
[2021-12-24 11:02] LABS: Glucose, Whole Blood 216 mg/dL (60-115)
--- NOTE | 2021-12-24 11:13 | P.DS_ITS ---
DS: Providers Provider Date of Service: 12/24/21 Date of admission: 12/19/21 03:03 Date of discharge: 12/24/21 Primary care physician: Estrella Brunner MD Consults: 12/19/21 07:58 Consult to Nephrology Routine Consulting Provider: [facility] Reason for consultation: AMOS, hyperkalemia Has provider been notified: No DS: Diagnosis Discharge Diagnosis (1) Acute kidney injury: Status: Acute (2) Acute hyperkalemia: Status: Acute DS: Summary Hospital Course Hospital Course: HP as per admitting povider The patient is a 61-year-old female with past medical history of COPD, CAD status post stent, hypertension, diabetes, hyperlipidemia and recent left total knee replacement who presented to the emergency room? with complaints of dyspnea.? Patient reported she was seen by primary care? provider on 12/17/21 and was? diagnosed with COPD exacerbation and started on azithromycin and Solu-Medrol. ? Tonight she presented with worsening dyspnea,? and tachypnea.? Initially the patient was alert and oriented satting 95% on room air, but later she continued to have a difficult time breathing,? with worsening? mental status required? emergent intubation in the emergency room for respiratory distress.?Laboratory data was significant for? VBGs: 7.37//152/13. ? WBC 13.4,? potassium 7.6, serum bicarb 17, BUN 26, creatinine 1.59, glucose 336,? lactic acid 5.3, BNP? 212.?In the emergency room she received? 2 L normal saline, total of 4 of Ativan, 10mg albuterol,? 1.25 levalbuterol,? 125 of Solu-Medrol, Levaquin, magnesium,? Lasix 40, calcium 2 g, bicarb,? 10 units of regular insulin,? and amp of dextrose Imaging:?Chest Xray:? with evidence of pulm congestion . Septic shock. Resolved Hypotension requiring pressor support in the ICU stable at this point No absolute source, flu, covid, us, cxr neg negative blood cultures Acute hypoxic respiratory failure.? Initially presented with dyspnea with histor y of COPD Initially admitted to the ICU, required ventilatory support and subsequently extubated on 12/20/2021 Treated with steroids and nebulization treatments No pneumonia on scans on ra at this time COPD. Some exp wheezing no pneumonia on cxr treated with scheduled duonebs and prednisone continue prednisone Metabolic acidosis. Resolved inital bg 7.12/49/96/16 secondary to sepsis treated with sodium bicarb Hyperkalemia. Resolved Initially 8.1, contributing to worsening renal function Treated with Lokelma AMOS.? Non oliguric. 2.08-1.34 Likely secondary to septic shock Creatinine trending down Avoid nephrotoxins Normocytic anemia no bleeding stable HH Diabetes continue home medications ada diet CAD continue BB Mental health continue home medications Iron def anemia with no blood loss, chronic Iron supplementation Less than 30 day stay is anticipated Seen/examined. Medically acceptable for D/C Time Spent with Patient Time attestation: Total time spent providing and/or coordinating discharge services: Discharge coordination time: Greater than 30 minutes Quality: Safe Use of Opioids Does Pt have an Active Cancer Diagnosis on the Problem List?: No Quality: Stroke Does the patient have a stroke diagnosis?: No Physical Exam Vital Signs: Vital Signs: Last Vital Signs Temp 98.1 F 12/24/21 10:58 Pulse 67 12/24/21 10:58 Resp 18 12/24/21 10:58 BP 136/60 12/24/21 10:58 Pulse Ox 95 12/24/21 10:58 Oxygen Flow Rate 4 12/19/21 00:29 BMI result Body Mass Index 37.4 Resp: Other: Clear to auscultation bilaterally no rales rhonchi or wheezes Cardio: Other: No S4; positive S1-S2; no S3 murmurs rubs or gallops GI: Other: Soft nontender nondistended with normoactive bowel sounds Extrem: Other: No edema bilaterally DS: Data Data Completed and Pending Completed studies during hospitalization [Text1]: Procedures Replacement of Left Knee Joint with Synthetic Substitute, Uncemented, Open Approach (11/11/21) Labs on day of discharge: Laboratory Results - last 24 hr 12/23/21 12/23/21 12/23/21 11:04 14:45 15:15 POC Glucose 220 H 215 H COVID-19 ([facility]) Negative COVID-19 Clin Com See Note 12/23/21 12/24/21 12/24/21 19:10 07:15 11:00 POC Glucose 261 H 117 H 216 H COVID-19 ([facility]) COVID-19 Clin Com Discharge Plan Discharge Patient Disposition: Xfer SNF Discharge Diagnosis: Septic shock Acute hypoxic respiratory failure COPD exacerbation Referrals: [facility] [place] [Outside] - 1 Week Discharge Medications: Continued (DME) walker Misc See Rx Instructions .MEDSUPPLY Qty: 1 0RF Rx Instructions: Folding Front wheeled walker atorvastatin 80 mg tablet 1 tab PO BEDTIME 0RF Breo Ellipta 200-25 mcg/dose blister with device 1 puff inhalation DAILY 0RF trazodone 50 mg tablet 1 tab PO BEDTIME 0RF oxybutynin chloride 10 mg tablet extended release 24hr 1 tab PO DAILY@1200 0RF cyanocobalamin (vitamin B-12) 1,000 mcg tablet 1 tab PO QAM 0RF pantoprazole 40 mg tablet,delayed release (DR/EC) 1 tab PO BID 0RF ferrous sulfate 325 mg (65 mg iron) tablet 1 tab PO BID 0RF metformin 1,000 mg tablet 1 tab PO BID 0RF nitroglycerin 0.4 mg tablet, sublingual 1 tab sublingual NEEDED PRN (Reason: Chest Pain) 0RF sertraline 50 mg tablet 1 tab PO BEDTIME 0RF metoprolol tartrate 25 mg tablet 1 tab PO DAILY 0RF calcium carbonate 500 mg calcium (1,250 mg) tablet 1 tab PO QAM 0RF albuterol sulfate [ProAir HFA] 90 mcg/actuation HFA aerosol inhaler 2 puff inhalation Q4-6H PRN (Reason: Shortness Of Breath Or Wheezing) 0RF aspirin 325 mg Tablet 325 mg PO BID 42 Days Qty: 84 0RF Rx Instructions: asa for dvt ppx x 42 days azithromycin 250 mg Tablet 250 mg PO DAILY 0RF Rx Instructions: start on day 2 of therapy prednisone 20 mg Tablet 20 mg PO DAILY 0RF glipizide 5 mg tablet 5 mg PO DAILY 0RF Discharge Orders: Discharge Order (Routine); Ordered 12/24/21 Ordered By: Carmelo Javier Diet: advance to usual diet Activity on Discharge: As tolerated Stand Alone Forms: Patient Portal Discharge page Care Plan Goals: resolution of symptoms Health Concerns: Septic shock Acute hypoxic respiratory failure COPD exacerbation Plan of Treatment: Follow up with your primary care provider Assessment: See discharge summary
[2021-12-24] MEDS: Insulin Lispro 100 UNIT/ML 3 ML VIAL SUBCUT (11:42)
== END 2021-12-24 13:15 | disposition skilled nursing facility (03) | DRG 208 ==
LOC: HO.ED 02:42 → HO.ICU 03:13 → HO.IMC 12-21 14:24
PROVIDERS: Internal Medicine Nephrology; Nurse Practitioner Acute Care; Registered Nurse Community Health; Admitting Provider Internal Medicine Pulmonary Disease; Emergency Provider Emergency Medicine; PCP Student in an Organized Health Care Education/Training Program; Visit Provider Hospitalist
DX: J44.1 Chronic obstructive pulmonary disease with (acute) exacerbation (principal); A41.9 Sepsis, unspecified organism; R65.21 Severe sepsis with septic shock; J96.01 Acute respiratory failure with hypoxia; N17.0 Acute kidney failure with tubular necrosis; E87.2 Acidosis; I25.10 Atherosclerotic heart disease of native coronary artery without angina pectoris; Z86.14 Personal history of Methicillin resistant Staphylococcus aureus infection; Z95.5 Presence of coronary angioplasty implant and graft; I25.2 Old myocardial infarction; E11.9 Type 2 diabetes mellitus without complications; K21.9 Gastro-esophageal reflux disease without esophagitis; E87.5 Hyperkalemia; D72.829 Elevated white blood cell count, unspecified; E66.9 Obesity, unspecified; Z68.37 Body mass index [BMI] 37.0-37.9, adult; E78.5 Hyperlipidemia, unspecified; D50.9 Iron deficiency anemia, unspecified; Z20.822 Contact with and (suspected) exposure to COVID-19; Z96.651 Presence of right artificial knee joint; Z79.52 Long term (current) use of systemic steroids; Z79.82 Long term (current) use of aspirin; Z79.84 Long term (current) use of oral hypoglycemic drugs; Z79.899 Other long term (current) drug therapy
CPT/HCPCS: 36415; 71045; 80048; 80053; 80076; 80202; 81001; 82040; 82043; 82803; 82947; 83540; 83605; 83735; 83880; 83935; 84100; 84300; 84484; 85025; 85027; 87040; 87502; 87635; 93005; 93306; 94002; 94003; 94640; 94644; 96361; 96365; 96366; 96367; 96375; 97110; 97116; 97162; 99285; 99291; C1758; J0610; J1940; J1956; J2060; J2405; J2543; J2930; J3010; J3370; J3475; P9047

== ENCOUNTER → 2022-01-08 08:38 | Outpatient (BNVA) | payer MEDICARE, OTHER, SELFPAY | PROVIDERS: PCP Student in an Organized Health Care Education/Training Program; Visit Provider Physician Assistant | DX: Z47.1 Aftercare following joint replacement surgery (principal); Z96.652 Presence of left artificial knee joint | CPT/HCPCS: 99212 ==

== ENCOUNTER 2022-02-10 10:20 | Outpatient (REF) | payer MEDICARE, OTHER, SELFPAY ==
[2022-02-10 11:16] LABS: MANUAL DIFF FLAG NO
[2022-02-10 11:44] LABS: Basophils Absolute Auto 0.1 X10*3/uL (0.0-0.2); Basophils Percent Auto 0.6 % (0-2); Eosinophils Absolute Auto 0.3 X10*3/uL (0.0-0.4); Hematocrit 34.1 % (37.0-47.0); Hemoglobin 10.9 g/dl (12.0-16.0); Imm Gran Abs Auto 0.07 X10*3/uL (0.00-0.03); Imm Gran Pct Auto 0.7 % (0.0-0.4); Lymphocytes Absolute Auto 2.6 X10*3/uL (1.2-4.9); Lymphocytes Percent Auto 27.5 % (20-40); Mean Corpuscular Hemoglobin 29.1 pg (27.0-33.0); Mean Corpuscular Volume 91.2 fL (80.0-98.0); Mean Platelet Volume 10.4 fL (9.4-12.3); Monocytes Absolute Auto 0.6 X10*3/uL (0.1-1.2); Monocytes Percent Auto 6.8 % (2-11); Neutrophils Absolute Auto 5.8 x10*3/uL (2.0-8.3); Neutrophils Percent Auto 61.4 % (45-73); Platelet Count 243 X10*3/uL (160-400); Red Blood Count 3.74 X10*6/uL (4.20-5.50); Red Cell Distribution Width 13.6 % (11.0-16.0); White Blood Count 9.5 X10*3/uL (4.8-10.8)
== END 2022-02-10 10:21 | disposition home or self-care (01) ==
LOC: HO.LAB 10:20
PROVIDERS: PCP Student in an Organized Health Care Education/Training Program; Visit Provider Internal Medicine Pulmonary Disease
DX: Z91.09 Other allergy status, other than to drugs and biological substances (principal); J44.9 Chronic obstructive pulmonary disease, unspecified
CPT/HCPCS: 36415; 82785; 85025; 86003; 99212

== ENCOUNTER 2022-02-19 06:26 | Outpatient (REF) | payer MEDICARE, OTHER, SELFPAY ==
--- NOTE | ~2022-02-19 | XR_ITS ---
EXAMINATION: KNEE X-RAY CLINICAL INFORMATION: Knee replacement COMPARISON: Previous x-ray November 2021 TECHNIQUE: Standing AP view of both knees and lateral and sunrise view of the left knee FINDINGS: Left: There is a 3 component knee replacement in satisfactory position. No fracture, dislocation or x-ray evidence of loosening. There is a large joint effusion. There is a soft tissue swelling over the anterior knee. There is atherosclerotic disease. Standing AP view of the right knee demonstrate a right knee replacement. XR/XR knee LT 2V IMPRESSION: Bilateral knee replacements. Soft tissue swelling over the left knee and large left knee joint effusion.
--- NOTE | ~2022-02-19 | XR_ITS ---
EXAMINATION: KNEE X-RAY CLINICAL INFORMATION: Knee replacement COMPARISON: Previous x-ray November 2021 TECHNIQUE: Standing AP view of both knees and lateral and sunrise view of the left knee FINDINGS: Left: There is a 3 component knee replacement in satisfactory position. No fracture, dislocation or x-ray evidence of loosening. There is a large joint effusion. There is a soft tissue swelling over the anterior knee. There is atherosclerotic disease. Standing AP view of the right knee demonstrate a right knee replacement. XR/XR knee standing BI IMPRESSION: Bilateral knee replacements. Soft tissue swelling over the left knee and large left knee joint effusion.
== END 2022-02-19 06:27 | disposition home or self-care (01) ==
LOC: HO.HOSX 06:26
PROVIDERS: Visit Provider Orthopaedic Surgery
DX: M25.562 Pain in left knee (principal)
CPT/HCPCS: 73560; 73565

== ENCOUNTER → 2022-03-11 14:57 | Outpatient (BNVA) | payer MEDICARE, OTHER, SELFPAY | PROVIDERS: PCP Student in an Organized Health Care Education/Training Program; Visit Provider Nurse Practitioner Family | DX: M54.16 Radiculopathy, lumbar region (principal); R20.0 Anesthesia of skin; Z96.652 Presence of left artificial knee joint | CPT/HCPCS: 99202 ==

== ENCOUNTER 2022-03-17 09:57 | Outpatient (REF) | payer MEDICARE, OTHER, SELFPAY ==
--- NOTE | ~2022-03-17 | XR_ITS ---
EXAMINATION: XR LUMBOSACRAL SPINE CLINICAL INFORMATION: M54.16 - Radiculopathy, lumbar region COMPARISON: CT abdomen and 05/16/2018 TECHNIQUE: Three views of the lumbosacral spine. FINDINGS: There is transitional vertebrae at L5 with left hemisacralization. Again, there is levocurvature upper lumbar spine and lumbar lordosis within normal. Prominent multilevel degenerative disc changes are present greatest at T12-L5 with disc narrowing, variable vacuum disc, endplate sclerosis and bulky osteophytes. No vertebral compression fracture or spondylolisthesis. There is facet degeneration greatest L4-S1. The SI joints and remainder of the sacrum are unremarkable. XR/XR lumbar spine 2-3V IMPRESSION: -Prominent multilevel degenerative disc changes. Facet degeneration greatest L4-S1. -Transitional vertebrae L5 with left hemisacralization.
--- NOTE | 2022-03-17 12:05 | PFT_ITS ---
FVC 72%, FEV1 65%. FEV1/FVC ratio is 68. HVY63-90 45% and MVV 54%. Post bronchodilator therapy, there is no change. Total lung capacity 87%. Residual volume 94%. Diffusion capacity 42%. CONCLUSION: Moderately severe obstructive airway disorder. No response to bronchodilator therapy is noted. MD VIMAL Aranda/ADELAL / [phone]
== END 2022-03-17 09:58 | disposition home or self-care (01) ==
LOC: HO.RESP 09:57
PROVIDERS: Absent Provider Nurse Practitioner Family; PCP Student in an Organized Health Care Education/Training Program; Visit Provider Internal Medicine Pulmonary Disease
DX: R06.00 Dyspnea, unspecified (principal); J44.9 Chronic obstructive pulmonary disease, unspecified; M54.16 Radiculopathy, lumbar region; Z87.891 Personal history of nicotine dependence; Z91.09 Other allergy status, other than to drugs and biological substances; Z79.899 Other long term (current) drug therapy
CPT/HCPCS: 72100; 94060; 94727; 94729; 99212

== ENCOUNTER 2022-04-06 11:53 | Outpatient (REF) | payer MEDICARE, OTHER, SELFPAY ==
[2022-04-06 12:18] LABS: MANUAL DIFF FLAG NO
[2022-04-06 12:31] LABS: Basophils Absolute Auto 0.1 X10*3/uL (0.0-0.2); Basophils Percent Auto 0.7 % (0-2); Eosinophils Percent Auto 0.1 % (0-4); Hematocrit 35.7 % (37.0-47.0); Hemoglobin 11.4 g/dl (12.0-16.0); Imm Gran Abs Auto 0.07 X10*3/uL (0.00-0.03); Imm Gran Pct Auto 0.8 % (0.0-0.4); Lymphocytes Absolute Auto 2.3 X10*3/uL (1.2-4.9); Lymphocytes Percent Auto 25.3 % (20-40); Mean Corpuscular HGB Conc 31.9 g/dl (31.0-35.0); Mean Corpuscular Hemoglobin 28.6 pg (27.0-33.0); Mean Corpuscular Volume 89.5 fL (80.0-98.0); Monocytes Absolute Auto 0.5 X10*3/uL (0.1-1.2); Monocytes Percent Auto 5.7 % (2-11); Neutrophils Percent Auto 67.4 % (45-73); Platelet Count 234 X10*3/uL (160-400); Red Blood Count 3.99 X10*6/uL (4.20-5.50); Red Cell Distribution Width 13.5 % (11.0-16.0); White Blood Count 8.9 X10*3/uL (4.8-10.8)
[2022-04-06 13:12] LABS: Anion Gap 16 (12-20); Blood Urea Nitrogen 31 mg/dL (9-16); Calcium 9.5 mg/dL (8.4-10.2); Carbon Dioxide 21 mmol/L (22-29); Chloride 106 mmol/L (96-108); Estimated Glomerular Filt Rate 44; Phosphorus 2.8 mg/dL (2.7-4.5); Potassium 4.9 mmol/L (3.3-5.1); Sodium 138 mmol/L (135-145)
[2022-04-06 13:14] LABS: Magnesium 1.3 mg/dL (1.6-2.6)
[2022-04-06 13:23] LABS: Appearance Urine CLEAR; Color Urine YELLOW; Glucose Urine UA NEG (NEG); Leukocyte Esterase Urine NEG (NEG); Nitrite Urine NEG (NEG); Specific Gravity - Urine >= 1.030 (1.005-1.025); Urine Blood NEG (NEG); Urine Ketones NEG (NEG); Urine Protein NEG (NEG-TRACE)
[2022-04-06 13:24] LABS: Vitamin D 25-OH Total 17.5 ng/mL (>30)
[2022-04-06 13:55] LABS: Total Protein Urine Random 8 mg/dL (<12)
[2022-04-07 11:12] LABS: Calcium (PTHI) 9.8 mg/dL (8.6-10.4); PTHI 43 pg/mL (16-77)
== END 2022-04-06 11:54 | disposition home or self-care (01) ==
LOC: HO.LAB 11:53
PROVIDERS: PCP Student in an Organized Health Care Education/Training Program; Visit Provider Internal Medicine Nephrology
DX: N18.32 Chronic kidney disease, stage 3b (principal); E11.22 Type 2 diabetes mellitus with diabetic chronic kidney disease; N25.0 Renal osteodystrophy; R82.71 Bacteriuria; B96.1 Klebsiella pneumoniae [K. pneumoniae] as the cause of diseases classified elsewhere
CPT/HCPCS: 36415; 80051; 81003; 82040; 82043; 82306; 82310; 82565; 83735; 83970; 84100; 84156; 84520; 85025; 87086; 87088; 87186

== ENCOUNTER 2022-04-15 11:54 | Outpatient (REF) | payer MEDICARE, OTHER, SELFPAY | END 2022-04-15 11:55 | disposition home or self-care (01) | LOC: HO.MDS 11:54 | PROVIDERS: Visit Provider Internal Medicine Pulmonary Disease | DX: J45.50 Severe persistent asthma, uncomplicated (principal) | CPT/HCPCS: 96372; J2357 ==

== ENCOUNTER 2022-04-29 12:15 | Outpatient (REF) | payer MEDICARE, OTHER, SELFPAY | END 2022-04-29 12:16 | disposition home or self-care (01) | LOC: HO.MDS 12:15 | PROVIDERS: Visit Provider Internal Medicine Pulmonary Disease | DX: J45.50 Severe persistent asthma, uncomplicated (principal) | CPT/HCPCS: 96372; J2357 ==

== ENCOUNTER 2022-05-07 11:00 | Outpatient (RCR) | payer MEDICARE, OTHER, SELFPAY ==
[2022-03-17 13:45] VITALS: BP 119/58
--- NOTE | 2022-03-17 15:32 | MHC.PT.EP ---
[facility] [place] Office [place] Office [place] Office [address] [place] [address] [phone] F: [phone] F: [phone] F: [phone] F: [phone] Physical Therapy Plan of Care Date of Evaluation: Date of Surgery: n/a Diagnosis: Radiculopathy, lumbar region Assessment: Pt is a pleasant 71yo F with extensive PMH who presents to PT with L sided low back pain radiating into L LE. She presents today with current impairments in pain, decreased lumbar ROM, decreased L hip ROM, decreased core stability, impaired body mechanics, decreased balance, and impaired gait. She is TTP with reproduction of symptoms with palpation to L QL, L lumbar PS, and L glutes. She is limited functionally by prolonged standing, prolonged walking, laying flat, and laying on her L side. She is a good candidate for skilled PT in order to address current impairments to facilitate return to PLOF. She will be seen 2x/week for 4 weeks and will be reassessed at that time. Frequency and Duration: The patient will be seen 2x/week for 4 weeks Short Term Goals: Pt will be I with HEP to promote self management of symptoms Pt will have centralization of symptoms Pt will demonstrate improvements in body mechanics throughout the day Retirement Goals: Pt will tolerate walking > 20 min with minimal to no pain throughout low back Pt will report pain < 4/10 after functional mobility Pt will sleep through the night with minimal to no pain back at least 4x/week Treatment Plan: Modalities to reduce pain, spasms and effusion. Manual therapy to restore motion and function. Therapeutic exercise to improve strength and flexibility. Neuromuscular re-education for posture and balance. Therapeutic activities to return to functional activities of daily living. Electronically signed by: Mary George, PT, DPT Please sign and return to therapist. Thank you for your referral.
--- NOTE | 2022-05-07 14:01 | MHC.PT.DC ---
[facility] [place] Office [place] Office [place] Office [address] [place] [address] [phone] F: [phone] F: [phone] F: [phone] F: [phone] Physical Therapy Discharge Report Diagnosis: Radiculopathy, lumbar region Date of Surgery: n/a Date of Evaluation: 03/17/22 Date of Discharge: 05/07/22 Treatments to Date: 12 Cancellations to Date: No Shows to Date: Discharge Status: Improved Function Independent with HEP Discharge Summary: Pt has made progress since SOC. She has met her STGs and made good progress toward her LTGs. She has had a decrease in pain overall. Her radicular symptoms have resolved. She continues to have occasional L knee pain however overall it has improved. She ambulates without AD and at this point her mobility is limited due to decreased endurance rather than pain. Pt is being D/C from skilled PT. Discussed importance of performing HEP consistently in order to continue improve strength and function and pt verbalized understanding. Provided pt with printed, updated copy of HEP. Pt reports no further questions or concerns for PT at this time. Electronically signed by: Mary George, PT, DPT Please sign and return to therapist. Thank you for your referral.
== END 2022-05-08 14:21 | disposition home or self-care (01) ==
LOC: HO.PT 11:00
PROVIDERS: PCP Student in an Organized Health Care Education/Training Program; Visit Provider Orthopaedic Surgery
DX: M54.16 Radiculopathy, lumbar region (principal)
CPT/HCPCS: 97110; 97140; 97162

== ENCOUNTER → 2022-05-18 12:37 | Outpatient (BNVA) | payer MEDICARE, OTHER, SELFPAY | PROVIDERS: PCP Student in an Organized Health Care Education/Training Program; Visit Provider Orthopaedic Surgery | DX: Z47.1 Aftercare following joint replacement surgery (principal); Z96.652 Presence of left artificial knee joint | CPT/HCPCS: 99212 ==

== ENCOUNTER 2022-05-21 11:49 | Outpatient (REF) | payer MEDICARE, OTHER, SELFPAY | END 2022-05-21 11:50 | disposition home or self-care (01) | LOC: HO.MDS 11:49 | PROVIDERS: Visit Provider Internal Medicine Pulmonary Disease | DX: J45.50 Severe persistent asthma, uncomplicated (principal) | CPT/HCPCS: 96372; J2357 ==

== ENCOUNTER 2022-06-04 12:58 | Outpatient (REF) | payer MEDICARE, OTHER, SELFPAY | END 2022-06-04 12:59 | disposition home or self-care (01) | LOC: HO.MDS 12:58 | PROVIDERS: Visit Provider Internal Medicine Pulmonary Disease | DX: J45.50 Severe persistent asthma, uncomplicated (principal) | CPT/HCPCS: 96372; J2357 ==

== ENCOUNTER 2022-06-18 11:00 | Outpatient (REF) | payer MEDICARE, OTHER, SELFPAY | END 2022-06-18 11:01 | disposition home or self-care (01) | LOC: HO.MDS 11:00 | PROVIDERS: Visit Provider Internal Medicine Pulmonary Disease | DX: J45.50 Severe persistent asthma, uncomplicated (principal) | CPT/HCPCS: 96372; J2357 ==

== ENCOUNTER 2022-06-18 11:57 | Outpatient (REF) | payer MEDICARE, OTHER, SELFPAY ==
[2022-06-18 13:33] LABS: Magnesium 1.4 mg/dL (1.6-2.6)
== END 2022-06-18 11:58 | disposition home or self-care (01) ==
LOC: HO.LAB 11:57
PROVIDERS: PCP Student in an Organized Health Care Education/Training Program; Visit Provider Internal Medicine Nephrology
DX: E11.22 Type 2 diabetes mellitus with diabetic chronic kidney disease (principal); N18.32 Chronic kidney disease, stage 3b; N25.0 Renal osteodystrophy
CPT/HCPCS: 36415; 83735

== ENCOUNTER 2022-07-02 11:51 | Outpatient (REF) | payer MEDICARE, OTHER, SELFPAY | END 2022-07-02 11:52 | disposition home or self-care (01) | LOC: HO.MDS 11:51 | PROVIDERS: Visit Provider Internal Medicine Pulmonary Disease | DX: J45.50 Severe persistent asthma, uncomplicated (principal) | CPT/HCPCS: 96372; J2357 ==

== ENCOUNTER → 2022-07-13 11:20 | Outpatient (BNVA) | payer MEDICARE, OTHER, SELFPAY | PROVIDERS: PCP Student in an Organized Health Care Education/Training Program; Visit Provider Internal Medicine Pulmonary Disease | DX: J44.9 Chronic obstructive pulmonary disease, unspecified (principal); Z91.09 Other allergy status, other than to drugs and biological substances | CPT/HCPCS: 99212 ==

== ENCOUNTER 2022-07-16 11:50 | Outpatient (REF) | payer MEDICARE, OTHER, SELFPAY | END 2022-07-16 11:51 | disposition home or self-care (01) | LOC: HO.MDS 11:50 | PROVIDERS: Visit Provider Internal Medicine Pulmonary Disease | DX: J45.50 Severe persistent asthma, uncomplicated (principal) | CPT/HCPCS: 96372; J2357 ==

== ENCOUNTER 2022-08-06 11:25 | Outpatient (REF) | payer MEDICARE, SELFPAY | END 2022-08-06 11:26 | disposition home or self-care (01) | LOC: HO.MDS 11:25 | PROVIDERS: Visit Provider Internal Medicine Pulmonary Disease | DX: J45.50 Severe persistent asthma, uncomplicated (principal) | CPT/HCPCS: 96372 ==

== ENCOUNTER 2022-08-20 10:53 | Outpatient (REF) | payer MEDICARE, SELFPAY | END 2022-08-20 10:54 | disposition home or self-care (01) | LOC: HO.MDS 10:53 | PROVIDERS: Visit Provider Internal Medicine Pulmonary Disease | DX: J45.50 Severe persistent asthma, uncomplicated (principal) | CPT/HCPCS: 96372 ==

== ENCOUNTER 2022-09-03 11:58 | Outpatient (REF) | payer MEDICARE, OTHER, SELFPAY | END 2022-09-03 11:59 | disposition home or self-care (01) | LOC: HO.MDS 11:58 | PROVIDERS: Visit Provider Internal Medicine Pulmonary Disease | DX: J45.50 Severe persistent asthma, uncomplicated (principal) | CPT/HCPCS: 96372 ==

== ENCOUNTER 2022-09-25 12:31 | Outpatient (REF) | payer MEDICARE, OTHER, SELFPAY | END 2022-09-25 12:32 | disposition home or self-care (01) | LOC: HO.MDS 12:31 | PROVIDERS: Visit Provider Internal Medicine Pulmonary Disease | DX: J45.50 Severe persistent asthma, uncomplicated (principal) | CPT/HCPCS: 96372; J2357 ==

== ENCOUNTER 2022-10-09 12:58 | Outpatient (REF) | payer MEDICARE, OTHER, SELFPAY | END 2022-10-09 12:59 | disposition home or self-care (01) | LOC: HO.MDS 12:58 | PROVIDERS: Visit Provider Internal Medicine Pulmonary Disease | DX: J45.50 Severe persistent asthma, uncomplicated (principal) | CPT/HCPCS: 96372 ==

== ENCOUNTER 2022-10-22 11:27 | Outpatient (REF) | payer MEDICARE, OTHER, SELFPAY ==
--- NOTE | ~2022-10-22 | XR_ITS ---
EXAMINATION: XR CHEST CLINICAL INFORMATION: COPD, unspecified COMPARISON: Prior chest radiographs, most recently 12/22/2021. TECHNIQUE: Frontal and lateral views of the chest were obtained. FINDINGS: The heart, great vessels, pulmonary vasculature and mediastinum are normal. The lungs show no focal infiltrate, effusion or pneumothorax. There is no acute osseous abnormality. There is multi-level thoracolumbar spondylosis. XR/XR chest 2V IMPRESSION: No active cardiopulmonary disease.
== END 2022-10-22 11:28 | disposition home or self-care (01) ==
LOC: HO.XRAY 11:27
PROVIDERS: Visit Provider Internal Medicine Pulmonary Disease
DX: J44.9 Chronic obstructive pulmonary disease, unspecified (principal)
CPT/HCPCS: 71046

== ENCOUNTER 2022-10-27 11:54 | Outpatient (REF) | payer MEDICARE, OTHER, SELFPAY | END 2022-10-27 11:55 | disposition home or self-care (01) | LOC: HO.MDS 11:54 | PROVIDERS: Visit Provider Internal Medicine Pulmonary Disease | DX: J45.50 Severe persistent asthma, uncomplicated (principal); J44.9 Chronic obstructive pulmonary disease, unspecified; J20.9 Acute bronchitis, unspecified; Z91.09 Other allergy status, other than to drugs and biological substances | CPT/HCPCS: 96372; 99212; J2357 ==

== ENCOUNTER 2022-11-10 11:20 | Outpatient (REF) | payer MEDICARE, OTHER, SELFPAY | END 2022-11-10 11:21 | disposition home or self-care (01) | LOC: HO.MDS 11:20 | PROVIDERS: Visit Provider Internal Medicine Pulmonary Disease | DX: J45.50 Severe persistent asthma, uncomplicated (principal) | CPT/HCPCS: 96372 ==

== ENCOUNTER 2022-11-25 10:56 | Outpatient (REF) | payer MEDICARE, OTHER, SELFPAY | END 2022-11-25 10:57 | disposition home or self-care (01) | LOC: HO.MDS 10:56 | PROVIDERS: Visit Provider Internal Medicine Pulmonary Disease | DX: J45.50 Severe persistent asthma, uncomplicated (principal) | CPT/HCPCS: 96372 ==

== ENCOUNTER 2022-12-09 09:48 | Outpatient (REF) | payer MEDICARE, OTHER, SELFPAY | END 2022-12-09 09:49 | disposition home or self-care (01) | LOC: HO.MDS 09:48 | PROVIDERS: Visit Provider Internal Medicine Pulmonary Disease | DX: J45.50 Severe persistent asthma, uncomplicated (principal) | CPT/HCPCS: 96372 ==

== ENCOUNTER 2022-12-22 11:17 | Outpatient (REF) | payer MEDICARE, OTHER, SELFPAY | END 2022-12-22 11:18 | disposition home or self-care (01) | LOC: HO.MDS 11:17 | PROVIDERS: Visit Provider Internal Medicine Pulmonary Disease | DX: J45.50 Severe persistent asthma, uncomplicated (principal) | CPT/HCPCS: 96372 ==

== ENCOUNTER 2023-01-06 12:25 | Outpatient (REF) | payer MEDICARE, OTHER, SELFPAY | END 2023-01-06 12:26 | disposition home or self-care (01) | LOC: HO.MDS 12:25 | PROVIDERS: Visit Provider Internal Medicine Pulmonary Disease | DX: J45.50 Severe persistent asthma, uncomplicated (principal) | CPT/HCPCS: 96372 ==

== ENCOUNTER → 2023-01-14 09:24 | Outpatient (BNVA) | payer MEDICARE, OTHER, SELFPAY | PROVIDERS: PCP Student in an Organized Health Care Education/Training Program; Visit Provider Internal Medicine Pulmonary Disease | DX: J45.909 Unspecified asthma, uncomplicated (principal); Z91.09 Other allergy status, other than to drugs and biological substances; Z87.891 Personal history of nicotine dependence; Z98.890 Other specified postprocedural states; Z79.899 Other long term (current) drug therapy | CPT/HCPCS: 99212 ==

== ENCOUNTER 2023-05-13 09:14 | Outpatient (REF) | payer MEDICARE, SELFPAY ==
[2023-05-13 14:47] LABS: Alanine Aminotransferase 13 U/L (0-31); Albumin Level 3.9 g/dL (3.5-5.0); Alkaline Phosphatase 90 U/L (39-117); Anion Gap 18 (12-20); Aspartate Amino Transferase 15 U/L (5-31); Bilirubin Direct 0.2 mg/dL (0.0-0.5); Bilirubin Total 0.4 mg/dL (0.0-1.0); Blood Urea Nitrogen 19 mg/dL (9-16); Calcium 9.8 mg/dL (8.4-10.2); Carbon Dioxide 24 mmol/L (22-29); Chloride 103 mmol/L (96-108); Cholesterol 163 mg/dL (<200); Estimated Glomerular Filt Rate 55; Glucose Fasting 97 mg/dL (60-99); HDL Cholesterol 31 mg/dL (>40); LDL Cholesterol Calculated 95 mg/dL (<100); Potassium 4.5 mmol/L (3.3-5.1); Sodium 140 mmol/L (135-145); Total Protein 6.8 g/dL (6.5-8.0); Triglycerides 187 mg/dL (<150)
[2023-05-13 14:49] LABS: Estimated Average Glucose 134 mg/dL; Hemoglobin A1c % 6.3 % (<6.0)
[2023-05-13 15:08] LABS: Creatinine Urine 84.04 mg/dL; Microalbumin Urine < 5.0 mg/L
== END 2023-05-13 09:15 | disposition home or self-care (01) ==
LOC: HO.CHCLDS 09:14
PROVIDERS: Visit Provider Student in an Organized Health Care Education/Training Program
DX: I10 Essential (primary) hypertension (principal); E11.9 Type 2 diabetes mellitus without complications
CPT/HCPCS: 36415; 80048; 80061; 80076; 82043; 82570; 83036

== ENCOUNTER 2023-05-18 09:40 | Outpatient (AMB) | payer MEDICARE, SELFPAY ==
[2023-05-18 09:44] VITALS: BP 128/62; PULSE 92; O2SAT 93; BMI 39.8
--- NOTE | 2023-05-18 09:44 | MHC.OFFVIS ---
Intake Vital Signs 05/18/23 09:44 Height 5 ft 1 in Weight 210 lb 8.663 oz BMI 39.8 BP 128/62 Blood Pressure Location Rt brachial Position Sitting Pulse 92 Pulse Source Doppler Pulse Oximetry (%) 93 Oxygen Delivery Method Room Air Intake Visit Reasons: Asthma Allergies levofloxacin [From Levaquin] Adverse Reaction (Intermediate, Verified 05/18/23 09:46) Muscle Pain Pain Med Sensitivity Allergy (Unknown, Uncoded 03/11/22 15:13) none HPI Asthma HPI Details 73-year-old lady, former 40+ pack-year smoker, quit 2013, with recent admission to [facility] for heart failure exacerbation, acute kidney injury requiring brief ventilatory support, now followed for environmental allergies and asthma/COPD overlap syndrome.? After the last office visit patient Xolair was discontinued secondary to in now symptomatic benefit. She continues to use trilogy and albuterol MDI with good control of her on asthma/COPD overlap symptoms and as needed loratadine and Dymista with allergic component. Patient states that over the last several days she developed nonproductive cough, but no significant wheezing. [facility] Medical History (Updated 10/22/22 @ 11:35 by Aneudy Copeland MD) MRSA (methicillin resistant Staphylococcus aureus) Anxiety and depression History of blood transfusion Myocardial infarct Diarrhea Arthritis Diabetes GERD (gastroesophageal reflux disease) Coronary artery disease Surgical History Hx of colonoscopy Hx of tonsillectomy Hx of cholecystectomy H/O: hysterectomy History of total right knee replacement (TKR) History of cardiac catheterization Family History Father Colon cancer Social History Household Members: None Are you a primary urgent care nurse practitioner to a significant other at home: No Do you presently have visiting nurse or other home services: Yes ([facility] - [facility]- 2 hours --) Unable to assess alcohol history related to: Unable to respond Alcohol intake: unknown Patient Tobacco Use Status: Former Tobacco user Quit Date: 2014 Tobacco use type: Cigarette Years Smoked: 40 Second Hand Smoke Exposure: No service: No Current occupational status: retired Review of Systems Const Denies daytime sleepiness, Denies excessive sweating, Denies fatigue, Denies fever(s), Denies lethargy, Denies malaise, Denies night sweats, Denies snoring and Denies weight loss Eyes Denies blurry vision and Denies itchy eyes ENT Denies nasal congestion, Denies post nasal drip, Denies sinus pain, Denies sinus pressure and Denies other ( Thrush) Card Denies chest pain, Denies pedal edema, Denies dyspnea, Denies orthopnea and Denies paroxysmal nocturnal dyspnea Resp Reports cough, Denies hemoptysis, Denies excessive phlegm production, Denies dyspnea, Denies snoring and Denies wheezing GI Denies abdominal pain and Denies heartburn Musc Denies myalgias, Denies arthralgias and Denies joint swelling Skin/Breast Denies rash Neuro Denies memory loss and Denies seizure-like activity Psych Denies abnormal sleep pattern, Denies anxiety and Denies memory loss Endo Denies excessive sweating, Denies fatigue and Denies heat intolerance Zenon/Lymph Denies easy bruising Aller/Immun Denies itchy eyes, Denies seasonal rhinorrhea and Denies wheezing Physical Exam Vital Signs: Last Vital Signs Pulse 92 05/18/23 09:44 BP 128/62 05/18/23 09:44 Pulse Ox 93 05/18/23 09:44 Oxygen Delivery Method Room Air 05/18/23 09:44 BMI result Body Mass Index 39.8 Const General: no acute distress and alert Nutritional Appearance: obese Orientation/consciousness: Other orientation findings ( oriented) HEENT Head: Yes atraumatic Eyes General: appearance normal, both eyes and all related structures Sclerae: sclerae normal EOM: EOMs intact bilaterally Neck Neck: Yes supple Lymphatic: no lymphadenopathy noted Resp Effort & Inspection: normal respiratory effort and no use of accessory muscles Auscultation: clear to auscultation bilaterally Cardio Rate: regular rate Rhythm: regular rhythm Heart sounds: no gallops, no murmurs and no rubs Skin General skin exam: other ( warm) Extrem General: No clubbing, No cyanosis and No edema Assessment & Plan Assessment & Plan (1) Asthma-COPD overlap syndrome: Code(s): J44.9 - Chronic obstructive pulmonary disease, unspecified Plan: Baseline symptoms well controlled on current regimen of trilogy and albuterol MDI. Continue current regimen. Now with mild bronchitic exacerbation. Patient is finishing amoxicillin course for tooth extraction, will extend by additional 3 days. (2) Environmental allergies: Code(s): Z91.09 - Other allergy status, other than to drugs and biological substances Plan: Well controlled on current as needed loratadine and Dymista. Continue current regimen. Medications: New amoxicillin 500 mg PO TID 9 tabs 0RF 3 days Coding Level of Care Code Est Pt Level 4 (33228) Diagnoses Asthma-COPD overlap syndrome J44.9 Environmental allergies Z91.09
== END 2023-05-18 09:58 | disposition home or self-care (01) ==
PROVIDERS: PCP Student in an Organized Health Care Education/Training Program; Visit Provider Internal Medicine Pulmonary Disease
DX: J44.9 Chronic obstructive pulmonary disease, unspecified (principal); Z91.09 Other allergy status, other than to drugs and biological substances
CPT/HCPCS: 99214

== ENCOUNTER → 2023-05-18 09:40 | Outpatient (BNVA) | payer MEDICARE, OTHER, SELFPAY | PROVIDERS: Visit Provider Internal Medicine Pulmonary Disease | DX: J44.9 Chronic obstructive pulmonary disease, unspecified (principal); Z91.09 Other allergy status, other than to drugs and biological substances | CPT/HCPCS: 99212 ==

== ENCOUNTER → 2023-06-08 08:45 | Outpatient (BNV) | payer MEDICARE, SELFPAY | PROVIDERS: PCP Student in an Organized Health Care Education/Training Program; Visit Provider Radiology Diagnostic Radiology | DX: Z12.31 Encounter for screening mammogram for malignant neoplasm of breast (principal) | CPT/HCPCS: 77063; 77067 ==

== ENCOUNTER 2023-06-08 08:47 | Outpatient (REF) | payer MEDICARE, SELFPAY | END 2023-06-08 08:48 | disposition home or self-care (01) | LOC: HO.MAMMO 08:47 | PROVIDERS: PCP Student in an Organized Health Care Education/Training Program; Visit Provider Student in an Organized Health Care Education/Training Program | DX: Z12.31 Encounter for screening mammogram for malignant neoplasm of breast (principal) | CPT/HCPCS: 77063; 77067 ==

== ENCOUNTER 2023-08-04 11:36 | Outpatient (REF) | payer MEDICARE, SELFPAY ==
[2023-08-04 12:08] LABS: MANUAL DIFF FLAG NO
[2023-08-04 12:45] LABS: Basophils Percent Auto 0.3 % (0-2); Eosinophils Percent Auto 0.1 % (0-4); Hematocrit 37.7 % (37.0-47.0); Hemoglobin 12.4 g/dl (12.0-16.0); Imm Gran Abs Auto 0.23 X10*3/uL (0.00-0.03); Imm Gran Pct Auto 1.8 % (0.0-0.4); Lymphocytes Absolute Auto 3.4 X10*3/uL (1.2-4.9); Lymphocytes Percent Auto 26.8 % (20-40); Mean Corpuscular HGB Conc 32.9 g/dl (31.0-35.0); Mean Corpuscular Hemoglobin 29.2 pg (27.0-33.0); Mean Corpuscular Volume 88.9 fL (80.0-98.0); Mean Platelet Volume 10.2 fL (9.4-12.3); Monocytes Absolute Auto 0.9 X10*3/uL (0.1-1.2); Neutrophils Absolute Auto 8.1 x10*3/uL (2.0-8.3); Platelet Count 329 X10*3/uL (160-400); Red Blood Count 4.24 X10*6/uL (4.20-5.50); Red Cell Distribution Width 13.4 % (11.0-16.0); White Blood Count 12.7 X10*3/uL (4.8-10.8)
[2023-08-04 13:13] LABS: Anion Gap 13 (12-20); Blood Urea Nitrogen 28 mg/dL (9-16); Calcium 9.5 mg/dL (8.4-10.2); Carbon Dioxide 27 mmol/L (22-29); Chloride 101 mmol/L (96-108); Estimated Glomerular Filt Rate 47; Glucose Random 243 mg/dL (60-115); Potassium 4.1 mmol/L (3.3-5.1); Sodium 137 mmol/L (135-145)
== END 2023-08-04 11:37 | disposition home or self-care (01) ==
LOC: HO.LAB 11:36
PROVIDERS: PCP Student in an Organized Health Care Education/Training Program; Visit Provider Internal Medicine Pulmonary Disease
DX: J44.9 Chronic obstructive pulmonary disease, unspecified (principal); R06.00 Dyspnea, unspecified; Z87.891 Personal history of nicotine dependence
CPT/HCPCS: 36415; 80048; 85025; 99212

== ENCOUNTER 2023-08-04 11:36 | Outpatient (AMB) | payer MEDICARE, SELFPAY ==
--- NOTE | 2023-08-04 11:38 | MHC.OFFVIS ---
Intake Vital Signs 08/04/23 11:39 Height 5 ft 1 in Weight 203 lb 14.841 oz BMI 38.5 BP 142/74 H Blood Pressure Location Rt brachial Position Sitting Pulse 76 Pulse Source Doppler Pulse Oximetry (%) 94 Oxygen Delivery Method Room Air Intake Visit Reasons: Not feeling well, having a hard time walking aroun Allergies levofloxacin [From Levaquin] Adverse Reaction (Intermediate, Verified 08/04/23 11:41) Muscle Pain Pain Med Sensitivity Allergy (Unknown, Uncoded 03/11/22 15:13) none HPI Not feeling well, having a hard time walking aroun HPI Details 73-year-old lady, former 40+ pack-year smoker, quit 2013, with recent admission to [facility] for heart failure exacerbation, acute kidney injury requiring brief ventilatory support, now followed for environmental allergies and asthma/COPD overlap syndrome.? After the last office visit patient Xolair was discontinued secondary to not having any symptomatic benefit. She continues to use Trelegy and albuterol MDI with good based control of her on asthma/COPD overlap symptoms and as needed loratadine and Dymista with allergic component. However, over the last several weeks his started developing worse dyspnea with productive cough. She was treated with several courses of antibiotics and prednisone with no response. [facility] Medical History (Updated 08/04/23 @ 11:54 by Aneudy Copeland MD) MRSA (methicillin resistant Staphylococcus aureus) Anxiety and depression History of blood transfusion Myocardial infarct Diarrhea Arthritis Diabetes GERD (gastroesophageal reflux disease) Coronary artery disease Surgical History Hx of colonoscopy Hx of tonsillectomy Hx of cholecystectomy H/O: hysterectomy History of total right knee replacement (TKR) History of cardiac catheterization Family History Father Colon cancer Social History Household Members: None Are you a primary career development manager to a significant other at home: No Do you presently have visiting nurse or other home services: Yes ([facility]- 2 hours M-W-) Unable to assess alcohol history related to: Unable to respond Alcohol intake: unknown Patient Tobacco Use Status: Former Tobacco user Quit Date: 2014 Tobacco use type: Cigarette Years Smoked: 40 Second Hand Smoke Exposure: No service: No Current occupational status: retired Review of Systems Const Denies daytime sleepiness, Denies excessive sweating, Denies fatigue, Denies fever(s), Denies lethargy, Denies malaise, Denies night sweats, Denies snoring and Denies weight loss Eyes Denies blurry vision and Denies itchy eyes ENT Denies nasal congestion, Denies post nasal drip, Denies sinus pain, Denies sinus pressure and Denies other ( Thrush) Card Denies chest pain, Denies pedal edema, Denies dyspnea, Reports dyspnea on exertion, Denies orthopnea and Denies paroxysmal nocturnal dyspnea Resp Reports cough, Denies hemoptysis, Reports excessive phlegm production, Denies dyspnea, Reports dyspnea on exertion, Denies snoring and Denies wheezing GI Denies abdominal pain and Denies heartburn Musc Denies myalgias, Denies arthralgias and Denies joint swelling Skin/Breast Denies rash Neuro Denies memory loss and Denies seizure-like activity Psych Denies abnormal sleep pattern, Denies anxiety and Denies memory loss Endo Denies excessive sweating, Denies fatigue and Denies heat intolerance Zenon/Lymph Denies easy bruising Aller/Immun Denies itchy eyes, Denies seasonal rhinorrhea and Denies wheezing Physical Exam Vital Signs: Last Vital Signs Pulse 76 08/04/23 11:39 BP 142/74 H 08/04/23 11:39 Pulse Ox 94 08/04/23 11:39 Oxygen Delivery Method Room Air 08/04/23 11:39 BMI result Body Mass Index 38.5 Const General: no acute distress and alert Nutritional Appearance: obese Orientation/consciousness: Other orientation findings ( oriented) HEENT Head: Yes atraumatic Eyes General: appearance normal, both eyes and all related structures Sclerae: sclerae normal EOM: EOMs intact bilaterally Neck Neck: Yes supple Lymphatic: no lymphadenopathy noted Resp Effort & Inspection: normal respiratory effort and no use of accessory muscles Auscultation: clear to auscultation bilaterally Cardio Rate: regular rate Rhythm: regular rhythm Heart sounds: no gallops, no murmurs and no rubs Skin General skin exam: other ( warm) Extrem General: No clubbing, No cyanosis and No edema Assessment & Plan Assessment & Plan (1) Asthma-COPD overlap syndrome: Code(s): J44.9 - Chronic obstructive pulmonary disease, unspecified Plan: Now with worsening control on Trelegy and albuterol MDI, also with cough productive of yellowish sputum with no response to several empiric course of antibiotics and a course of prednisone. Will obtain sputum culture. (2) Acute dyspnea: Code(s): R06.00 - Dyspnea, unspecified Plan: Concern for pulmonary embolism. Will obtain CT angio chest. Orders: Orders Basic Metabolic Panel Today J44.9 - Chronic obstructive pulmonary disease, unspecified Sputum Cult + Gram stain Today J44.9 - Chronic obstructive pulmonary disease, unspecified Complete Blood Count Auto Diff Today J44.9 - Chronic obstructive pulmonary disease, unspecified CT angio chest PE protocol Today R06.00 - Dyspnea, unspecified Coding Level of Care Code Est Pt Level 4 (75997) Diagnoses Asthma-COPD overlap syndrome J44.9 Acute dyspnea R06.00
[2023-08-04 11:39] VITALS: BP 142/74; PULSE 76; O2SAT 94; BMI 38.5
== END 2023-08-04 11:52 | disposition home or self-care (01) ==
PROVIDERS: PCP Student in an Organized Health Care Education/Training Program; Visit Provider Internal Medicine Pulmonary Disease
DX: J44.9 Chronic obstructive pulmonary disease, unspecified (principal); R06.00 Dyspnea, unspecified
CPT/HCPCS: 99214

== ENCOUNTER 2023-08-05 08:45 | Outpatient (REF) | payer MEDICARE, SELFPAY ==
--- NOTE | ~2023-08-05 | CT_ITS ---
EXAMINATION: CT ANGIOGRAM OF THE CHEST WITH AND WITHOUT CONTRAST (CT PULMONARY ANGIOGRAM FOR PE) CLINICAL INFORMATION: Reason for Exam R06.00 - Dyspnea, unspecified COMPARISON: CT chest 10/01/2009 -report only. Images are not available. CT abdomen 05/16/2018 TECHNIQUE: Prior to contrast administration, noncontrast localization images were obtained. Subsequently, multidetector volumetric imaging was performed from the thoracic inlet to below the diaphragms following the administration of 65 mL Omnipaque 350 intravenous contrast. No contrast reaction reported Sagittal, coronal, and MIP oblique sagittal reformatted images were obtained on the CT workstation, uploaded to PACS, and reviewed. This CT examination was performed using dose optimization techniques as appropriate, variously including the following: *Automated exposure control *Adjustment of mA and/or kV according to patient size (this includes techniques or standardized protocols for targeted exams where dose is matched to indication/reason for exam; i.e. extremities or head) *Use of iterative reconstruction technique Total exam dose-length product 138 mGy-cm FINDINGS: QUALITY OF STUDY/CONTRAST BOLUS: Satisfactory. PULMONARY ARTERIES: No pulmonary emboli. THORACIC AORTA: No aneurysm. LUNG: Multiple areas of peripheral tree-in-bud formation are noted in the right lung and to a lesser extent in the left lung, Villa images of these findings have been saved. Scattered pulmonary micronodules are seen in both upper and lower lobes, with the largest measuring about 5 mm (for example right upper lobe 7:194). At the time of the prior chest CT, no such findings were described ( normal chest CT. No mass seen. ). Right basilar atelectasis is seen posteromedially. PLEURA: No pleural effusion or pneumothorax. MEDIASTINUM: Normal heart size. No pericardial effusion. No hilar or mediastinal lymphadenopathy. No evidence of septal bowing or right heart strain. CORONARY ARTERY CALCIFICATION: Moderate triple-vessel coronary calcium is present CHEST WALL/AXILLA: No axillary or internal mammary lymphadenopathy. OSSEOUS STRUCTURES: No acute or suspicious osseous abnormality. UPPER ABDOMEN: Again seen is a fat density mass partially imaged in the left adrenal gland consistent with a benign adenoma. No reflux of contrast into the hepatic veins to suggest elevated right heart pressures. CT/CT angio chest PE protocol IMPRESSION: 1. No evidence of pulmonary emboli. 2. Peripheral tree-in-bud formation consistent with inflammatory disease. 3. Scattered pulmonary micronodules, none larger than 5 mm. According to the UPDATED 2017 Fleischner Society recommendations, the advised follow-up imaging for nodules <6mm in the upper lobes is not necessarily required in low-risk patients. In high-risk patients with a nodule in the upper lobe and/or demonstrating suspicious morphology, an optional CT follow-up at 12 months may be obtained. If stable at 12 months, no further follow-up is recommended.
== END 2023-08-05 08:46 | disposition home or self-care (01) ==
LOC: HO.CT 08:45
PROVIDERS: PCP Student in an Organized Health Care Education/Training Program; Visit Provider Internal Medicine Pulmonary Disease
DX: R06.00 Dyspnea, unspecified (principal)
CPT/HCPCS: 71275

== ENCOUNTER 2023-08-05 09:02 | Outpatient (REF) | payer MEDICARE, SELFPAY | END 2023-08-05 09:03 | disposition home or self-care (01) | LOC: HO.LNP 09:02 | PROVIDERS: Visit Provider Internal Medicine Pulmonary Disease | DX: J44.9 Chronic obstructive pulmonary disease, unspecified (principal) | CPT/HCPCS: 87070; 87205 ==

== ENCOUNTER 2023-08-10 10:07 | Outpatient (REF) | payer MEDICARE, SELFPAY | END 2023-08-10 10:08 | disposition home or self-care (01) | LOC: HO.LAB 10:07 | PROVIDERS: Visit Provider Internal Medicine Pulmonary Disease | DX: Z13.89 Encounter for screening for other disorder (principal) ==

== ENCOUNTER 2023-08-10 11:44 | Outpatient (REF) | payer MEDICARE, SELFPAY | END 2023-08-10 11:45 | disposition home or self-care (01) | LOC: HO.LNP 11:44 | PROVIDERS: Visit Provider Internal Medicine Pulmonary Disease | DX: J20.9 Acute bronchitis, unspecified (principal) | CPT/HCPCS: 87070; 87205 ==

== ENCOUNTER 2023-10-29 09:27 | Outpatient (AMB) | payer MEDICARE, SELFPAY ==
[2023-10-29 09:28] VITALS: BP 114/58; PULSE 78; O2SAT 91; BMI 38.9
--- NOTE | 2023-10-29 09:28 | A.OFFVIS_ITS ---
Intake Vital Signs 10/29/23 09:28 Height 5 ft 1 in Weight 206 lb 2.115 oz BMI 38.9 BP 114/58 L Blood Pressure Location Rt brachial Position Sitting Pulse 78 Pulse Source Doppler Pulse Oximetry (%) 91 L Oxygen Delivery Method Room Air Intake Visit Reasons: Asthma Allergies levofloxacin [From Levaquin] Adverse Reaction (Intermediate, Verified 10/29/23 09:34) Muscle Pain Pain Med Sensitivity Allergy (Unknown, Uncoded 03/11/22 15:13) none HPI Asthma HPI Details 73-year-old lady, former 40+ pack-year s talha, quit 2013, with recent admission to [facility] for heart failure exacerbation, acute kidney injury requiring brief ventilatory support, now followed for environmental allergies and asthma/COPD overlap syndrome.? She tried Xolair, but it was discontinued secondary to not having any symptomatic benefit. She continues to use Trelegy and albuterol MDI with good based control of her asthma/COPD overlap symptoms and as needed loratadine and Dymista with allergic component. However she does complain of slowly worsening dyspnea on exertion. She denies any recent exacerbations. [facility] Medical History (Updated 10/29/23 @ 09:43 by Aneudy Copeland MD) MRSA (methicillin resistant Staphylococcus aureus) Anxiety and depression History of blood transfusion Myocardial infarct Diarrhea Arthritis Diabetes GERD (gastroesophageal reflux disease) Coronary artery disease Surgical History Hx of colonoscopy Hx of tonsillectomy Hx of cholecystectomy H/O: hysterectomy History of total right knee replacement (TKR) History of cardiac catheterization Family History Father Colon cancer Social History Household Members: None Are you a primary morning caregiver to a significant other at home: No Do you presently have visiting nurse or other home services: Yes ([facility] - [facility]- 2 hours --) Unable to assess alcohol history related to: Unable to respond Alcohol intake: unknown Patient Tobacco Use Status: Former Tobacco user Quit Date: 2014 Tobacco use type: Cigarette Years Smoked: 40 Second Hand Smoke Exposure: No service: No Current occupational status: retired Review of Systems Const Denies daytime sleepiness, Denies excessive sweating, Denies fatigue, Denies fever(s), Denies lethargy, Denies malaise, Denies night sweats, Denies snoring and Denies weight loss Eyes Denies blurry vision and Denies itchy eyes ENT Denies nasal congestion, Denies post nasal drip, Denies sinus pain, Denies sinus pressure and Denies other ( Thrush) Card Denies chest pain, Denies pedal edema, Denies dyspnea, Reports dyspnea on exertion, Denies orthopnea and Denies paroxysmal nocturnal dyspnea Resp Denies cough, Denies hemoptysis, Denies excessive phlegm production, Denies dyspnea, Reports dyspnea on exertion, Denies snoring and Denies wheezing GI Denies abdominal pain and Denies heartburn Musc Denies myalgias, Denies arthralgias and Denies joint swelling Skin/Breast Denies rash Neuro Denies memory loss and Denies seizure-like activity Psych Denies abnormal sleep pattern, Denies anxiety and Denies memory loss Endo Denies excessive sweating, Denies fatigue and Denies heat intolerance Zenon/Lymph Denies easy bruising Aller/Immun Denies itchy eyes, Denies seasonal rhinorrhea and Denies wheezing Physical Exam Vital Signs: Last Vital Signs Pulse 78 10/29/23 09:28 BP 114/58 L 10/29/23 09:28 Pulse Ox 91 L 10/29/23 09:28 Oxygen Delivery Method Room Air 10/29/23 09:28 BMI result Body Mass Index 38.9 Const General: no acute distress and alert Nutritional Appearance: obese Orientation/consciousness: Other orientation findings ( oriented) HEENT Head: Yes atraumatic Eyes General: appearance normal, both eyes and all related structures Sclerae: sclerae normal EOM: EOMs intact bilaterally Neck Neck: Yes supple Lymphatic: no lymphadenopathy noted Resp Effort & Inspection: normal respiratory effort and no use of accessory muscles Auscultation: clear to auscultation bilaterally Cardio Rate: regular rate Rhythm: regular rhythm Heart sounds: no gallops, no murmurs and no rubs Skin General skin exam: other ( warm) Extrem General: No clubbing, No cyanosis and No edema Assessment & Plan Assessment & Plan (1) Asthma-COPD overlap syndrome: Code(s): J44.9 - Chronic obstructive pulmonary disease, unspecified Plan: Baseline controlled on Trelegy and albuterol MDI. Continue current regimen. (2) Environmental allergies: Code(s): Z91.09 - Other allergy status, other than to drugs and biological substances Plan: Controlled on loratadine and Dymista. Continue current regimen. (3) Dyspnea on exertion: Code(s): R06.09 - Other forms of dyspnea Plan: Slowly worsening dyspnea on exertion symptoms not responding to albuterol MDI. Suspect underlying cardiac component. Will obtain stress test. Orders: Orders CA stress test Today R06.09 - Other forms of dyspnea Coding Level of Care Code Est Pt Level 4 (73822) Diagnoses Asthma-COPD overlap syndrome J44.9 Environmental allergies Z91.09 Dyspnea on exertion R06.09
== END 2023-10-29 09:43 | disposition home or self-care (01) ==
PROVIDERS: PCP Student in an Organized Health Care Education/Training Program; Visit Provider Internal Medicine Pulmonary Disease
DX: J44.9 Chronic obstructive pulmonary disease, unspecified (principal); Z91.09 Other allergy status, other than to drugs and biological substances; R06.09 Other forms of dyspnea
CPT/HCPCS: 99214

== ENCOUNTER → 2023-10-29 09:27 | Outpatient (BNVA) | payer MEDICARE, OTHER, SELFPAY | PROVIDERS: PCP Student in an Organized Health Care Education/Training Program; Visit Provider Internal Medicine Pulmonary Disease | DX: J44.9 Chronic obstructive pulmonary disease, unspecified (principal); Z91.09 Other allergy status, other than to drugs and biological substances; R06.09 Other forms of dyspnea | CPT/HCPCS: 99212 ==

== ENCOUNTER → 2023-11-05 09:11 | Outpatient (REF) | payer MEDICARE, OTHER, SELFPAY ==
--- NOTE | 2023-11-05 09:14 | CA_ITS ---
Acquisition Time: 2023-11-05 09:16:57 Total Exercise Time: 00:02:40 Test Indications: SOB Medications: SEE H Protocol: MOD LETTY Max HR: 141 BPM 95% of Pred: 148 BPM Max BP: 150/058 mmHG Max Work Load: 2.3 METS Exercise stress test exercise modified letty protocol achieving approx 78% MPHR with moderate to severe SOB, no chest discomfort, without arrhhythmias, with normotensive response to exercise, with EKGs hard to interpet due to artifact.Breathing returned to baseline. Reviewed with Dr. Castro. Referred By: Aneudy Copeland Overread By: Crystal Munoz
== END ==
LOC: HO.CARD 09:11
PROVIDERS: PCP Student in an Organized Health Care Education/Training Program; Visit Provider Internal Medicine Pulmonary Disease
DX: R06.09 Other forms of dyspnea (principal)
CPT/HCPCS: 93017

== ENCOUNTER → 2023-11-05 09:14 | Outpatient (BNV) | payer MEDICARE, SELFPAY | PROVIDERS: PCP Student in an Organized Health Care Education/Training Program; Visit Provider Nurse Practitioner | DX: R06.09 Other forms of dyspnea (principal) | CPT/HCPCS: 93016; 93018 ==

== ENCOUNTER → 2023-12-13 08:48 | Outpatient (REF) | payer MEDICARE, SELFPAY ==
--- NOTE | ~2023-12-13 | NM_ITS ---
Myocardial perfusion study Indication: Shortness of breath evaluate for myocardial ischemia Technique: The patient was brought in for a Lexiscan perfusion study on 12/13/2023. Patient performed low-level exercise and was injected 0.4 mg of Lexiscan intravenously. Within a minute of injection, 30 mCi of sestamibi was given intravenously. Images were obtained using the SPECT gamma camera interlaced with the gating device. Images were obtained in supine position. Resting perfusion study was performed on 12/14/2023. Patient was administered 30 mCi of sestamibi intravenously at rest. Images were then obtained in supine position. Images obtained with and without CT attenuation. Total DLP 158 mGy-cm Images were processed with the software and compared side to side in short axis, horizontal long axis and vertical long axis views. Findings: The stress perfusion study showed non attenuated images show mildly reduced uptake in the septum as well as the moderately reduced uptake in the basal inferior and mildly reduced uptake in the mid inferior and moderately reduced uptake in the distal inferolateral wall of the LV myocardium. Attenuation corrected images show mildly reduced uptake in the distal septum and mildly to moderately reduced uptake in the inferior as well as mildly reduced uptake in the inferolateral wall of the LV myocardium.. The gated study shows normal LV systolic function with calculated LVEF of 53%. LV cavity is normal in size. The gated study shows normal systolic wall thickening and contraction of segments. Resting study shows both attenuated as well as non attenuated images show improved uptake in the inferolateral wall of the LV myocardium. The septal uptake is replaced to moderately reduced uptake in the distal anterior and apical wall of the LV myocardium on attenuated corrected images and probably represent attenuation. Gating at rest reveals normal systolic wall motion with ejection fraction at 52%. The findings are consistent with there is reversible defect of the mild intensity INFEROLATERAL as well as the basal inferior wall suggestive of ischemia.. NM/NM cardiolite stress test Impression: 1. Myocardial perfusion imaging study shows basal inferior and inferolateral ischemia 2. Gated LVEF is 53% 3. Transient ischemic dilatation not present EKG is nondiagnostic for ischemia
--- NOTE | 2023-12-13 08:51 | CA_ITS ---
Acquisition Time: 2023-12-13 08:59:08 Total Exercise Time: 00:10:28 Test Indications: DYSPNEA ON EXERTION Medications: Protocol: DOBUTAMINE Max HR: 137 BPM 92% of Pred: 148 BPM Max BP: 146/054 mmHG Max Work Load: 1.0 METS Pharmacological stress test with Dobutamine infusion with max dose of 30mcg/kg achieving 88% MPHR, without anginal symptoms, without arrhythmias, with normotensive response to infusion, without EKG changes. Nuclear images pending. Test reviewed with Dr. Larry. Referred By: Aneudy Copeland Overread By: Crystal Munoz
== END ==
LOC: HO.CARD 08:48
PROVIDERS: PCP Student in an Organized Health Care Education/Training Program; Visit Provider Internal Medicine Pulmonary Disease
DX: R06.09 Other forms of dyspnea (principal)
CPT/HCPCS: 78452; 93017; A9500; J1250

== ENCOUNTER → 2023-12-13 08:51 | Outpatient (BNV) | payer MEDICARE, SELFPAY | PROVIDERS: PCP Student in an Organized Health Care Education/Training Program; Visit Provider Nurse Practitioner | DX: R06.09 Other forms of dyspnea (principal) | CPT/HCPCS: 78452; 93016; 93018 ==

== ENCOUNTER 2023-12-21 08:20 | Outpatient (REF) | payer MEDICARE, SELFPAY ==
[2023-12-21 08:55] LABS: MANUAL DIFF FLAG NO
[2023-12-21 09:33] LABS: Basophils Absolute Auto 0.1 X10*3/uL (0.0-0.2); Basophils Percent Auto 0.6 % (0-2); Eosinophils Percent Auto 0.3 % (0-4); Hematocrit 36.8 % (37.0-47.0); Hemoglobin 11.8 g/dl (12.0-16.0); Imm Gran Abs Auto 0.08 X10*3/uL (0.00-0.03); Lymphocytes Absolute Auto 1.7 X10*3/uL (1.2-4.9); Lymphocytes Percent Auto 21.6 % (20-40); Mean Corpuscular HGB Conc 32.1 g/dl (31.0-35.0); Mean Corpuscular Hemoglobin 29.1 pg (27.0-33.0); Mean Corpuscular Volume 90.9 fL (80.0-98.0); Mean Platelet Volume 10.1 fL (9.4-12.3); Monocytes Absolute Auto 0.5 X10*3/uL (0.1-1.2); Monocytes Percent Auto 6.8 % (2-11); Neutrophils Absolute Auto 5.4 x10*3/uL (2.0-8.3); Neutrophils Percent Auto 69.7 % (45-73); Platelet Count 238 X10*3/uL (160-400); Red Blood Count 4.05 X10*6/uL (4.20-5.50); Red Cell Distribution Width 13.3 % (11.0-16.0); White Blood Count 7.8 X10*3/uL (4.8-10.8)
[2023-12-21 10:03] LABS: Albumin Level 3.7 g/dL (3.5-5.0); Anion Gap 13 (12-20); Blood Urea Nitrogen 21 mg/dL (9-16); Calcium 9.3 mg/dL (8.4-10.2); Carbon Dioxide 25 mmol/L (22-29); Chloride 106 mmol/L (96-108); Estimated Glomerular Filt Rate 46; Magnesium 1.5 mg/dL (1.6-2.6); Phosphorus 2.9 mg/dL (2.7-4.5); Potassium 4.6 mmol/L (3.3-5.1); Sodium 139 mmol/L (135-145)
[2023-12-21 10:10] LABS: Appearance Urine Clear; Color Urine Yellow; Glucose Urine UA Negative (Negative); Leukocyte Esterase Urine Small (1+) (Negative); Nitrite Urine Positive (Negative); UMIC TRIGGER UA YES; Urine Blood Negative (Negative); Urine Ketones Negative (Negative); Urine Protein Negative (Neg-Trace)
[2023-12-21 10:15] LABS: Bacteria Urine 4+ (None Seen); Hyaline Casts Urine 0-2 /LPF (0-2); RBC Urine 0-2 /HPF (0-2)
[2023-12-21 10:21] LABS: Vitamin D 25-OH Total 13.6 ng/mL (>30)
[2023-12-21 11:09] LABS: Creatinine Urine 139.19 mg/dL; Microalbum/Creatinine Ratio Ur 5.7 ug/mg cr (<30); Total Protein Urine Random < 7 mg/dL (<12)
== END 2023-12-21 08:21 | disposition home or self-care (01) ==
LOC: HO.LAB 08:20
PROVIDERS: PCP Student in an Organized Health Care Education/Training Program; Visit Provider Internal Medicine Nephrology
DX: E11.22 Type 2 diabetes mellitus with diabetic chronic kidney disease (principal); E83.42 Hypomagnesemia; N18.2 Chronic kidney disease, stage 2 (mild)
CPT/HCPCS: 36415; 80051; 81001; 81003; 82040; 82043; 82306; 82310; 82565; 82570; 83735; 83970; 84100; 84156; 84520; 85025; 87086; 87088; 87186

== ENCOUNTER 2023-12-31 08:58 | Outpatient (AMB) | payer MEDICARE, SELFPAY ==
[2023-12-31 09:00] VITALS: BP 138/74; PULSE 107; O2SAT 91; BMI 39.1
--- NOTE | 2023-12-31 09:00 | MHC.OFFVIS ---
Vital Signs 12/31/23 09:00 Height 5 ft 1 in Weight 207 lb BMI 39.1 BP 138/74 Blood Pressure Location Rt brachial Position Sitting Pulse 107 H Pulse Source Doppler Pulse Oximetry (%) 91 L Oxygen Delivery Method Room Air Intake Visit Reasons: Asthma Allergies levofloxacin [From Levaquin] Adverse Reaction (Intermediate, Verified 12/31/23 09:06) Muscle Pain Pain Med Sensitivity Allergy (Unknown, Uncoded 03/11/22 15:13) none HPI HPI Asthma: Details: 73-year-old lady, former 40+ pack-year smoker, quit 2013, with recent admission to [facility] for heart failure exacerbation, acute kidney injury requiring brief ventilatory support, now followed for environmental allergies and asthma/COPD overlap syndrome.? She tried Xolair, but it was discontinued secondary to not having any symptomatic benefit. She continues to use Trelegy and albuterol MDI with good based control of her asthma/COPD overlap symptoms and as needed loratadine and Dymista with allergic component. However she does complain of slowly worsening dyspnea on exertion. She denies any recent exacerbations. After the last office visit patient had dobutamine stress test that showed inferior ischemia with reversible component. [facility] Medical History (Updated 12/31/23 @ 09:18 by Aneudy Copeland MD) MRSA (methicillin resistant Staphylococcus aureus) Anxiety and depression History of blood transfusion Myocardial infarct Diarrhea Arthritis Diabetes GERD (gastroesophageal reflux disease) Coronary artery disease Surgical History Hx of colonoscopy Hx of tonsillectomy Hx of cholecystectomy H/O: hysterectomy History of total right knee replacement (TKR) History of cardiac catheterization Family History Father Colon cancer Social History Household Members: None Are you a primary complex care nurse practitioner to a significant other at home: No Do you presently have visiting nurse or other home services: Yes ([facility] - [employer]- 2 hours M-W-) Unable to assess alcohol history related to: Unable to respond Alcohol intake: unknown Patient Tobacco Use Status: Former Tobacco user Quit Date: 2014 Tobacco use type: Cigarette Years Smoked: 40 Second Hand Smoke Exposure: No service: No Current occupational status: retired Review of Systems Const Denies daytime sleepiness, Denies excessive sweating, Denies fatigue, Denies fever(s), Denies lethargy, Denies malaise, Denies night sweats, Denies snoring and Denies weight loss Eyes Denies blurry vision and Denies itchy eyes ENT Denies nasal congestion, Denies post nasal drip, Denies sinus pain, Denies sinus pressure and Denies other ( Thrush) Card Denies chest pain, Denies pedal edema, Denies dyspnea, Denies orthopnea and Denies paroxysmal nocturnal dyspnea Resp Denies cough, Denies hemoptysis, Denies excessive phlegm production, Denies dyspnea, Denies snoring and Denies wheezing GI Denies abdominal pain and Denies heartburn Musc Denies myalgias, Denies arthralgias and Denies joint swelling Skin/Breast Denies rash Neuro Denies memory loss and Denies seizure-like activity Psych Denies abnormal sleep pattern, Denies anxiety and Denies memory loss Endo Denies excessive sweating, Denies fatigue and Denies heat intolerance Zenon/Lymph Denies easy bruising Aller/Immun Denies itchy eyes, Denies seasonal rhinorrhea and Denies wheezing Physical Exam Vital Signs: Last Vital Signs Pulse 107 H 12/31/23 09:00 BP 138/74 12/31/23 09:00 Pulse Ox 91 L 12/31/23 09:00 Oxygen Delivery Method Room Air 12/31/23 09:00 BMI result Body Mass Index 39.1 Const General: no acute distress and alert Nutritional Appearance: obese Orientation/consciousness: Other orientation findings ( oriented) HEENT Head: Yes atraumatic Eyes General: appearance normal, both eyes and all related structures Sclerae: sclerae normal EOM: EOMs intact bilaterally Neck Neck: Yes supple Lymphatic: no lymphadenopathy noted Resp Effort & Inspection: normal respiratory effort and no use of accessory muscles Auscultation: clear to auscultation bilaterally Cardio Rate: regular rate Rhythm: regular rhythm Heart sounds: no gallops, no murmurs and no rubs Skin General skin exam: other ( warm) Extrem General: No clubbing, No cyanosis and No edema Assessment & Plan Assessment & Plan (1) Asthma-COPD overlap syndrome: Code(s): J44.9 - Chronic obstructive pulmonary disease, unspecified Category: Medical Plan: Controlled on Trelegy. Will switch albuterol MDI for Combivent. (2) Personal history of nicotine dependence: Code(s): Z87.891 - Personal history of nicotine dependence Category: Medical Plan: Results of CT angio chest from July of 2023, no worrisome nodules at that. Will continue with yearly screening, next in July of 2024. (3) Myocardial ischemia of inferior surface of left ventricle: Code(s): I25.9 - Chronic ischemic heart disease, unspecified Category: Medical Plan: Results of stress test reviewed inferior ischemia with reversible component noted. Cardiology referral placed. Orders: Orders CT lung screening 08/01/24 Z87.891 - Personal history of nicotine dependence Referrals Cardiology Referral I25.9 - Chronic ischemic heart disease, unspecified Medications: New ipratropium-albuterol 20-100 mcg/actuation (Combivent Respimat) 1 puff inhalation Q4H 30 days 4 grams 6RF Coding Level of Care Code Est Pt Level 4 (42037) Diagnoses Asthma-COPD overlap syndrome J44.9 Personal history of nicotine dependence Z87.891 Myocardial ischemia of inferior surface of left ventricle I25.9
== END 2023-12-31 09:18 | disposition home or self-care (01) ==
PROVIDERS: PCP Student in an Organized Health Care Education/Training Program; Visit Provider Internal Medicine Pulmonary Disease
DX: J44.9 Chronic obstructive pulmonary disease, unspecified (principal); Z87.891 Personal history of nicotine dependence; I25.9 Chronic ischemic heart disease, unspecified
CPT/HCPCS: 99214

== ENCOUNTER → 2023-12-31 08:58 | Outpatient (BNVA) | payer MEDICARE, SELFPAY | PROVIDERS: PCP Student in an Organized Health Care Education/Training Program; Visit Provider Internal Medicine Pulmonary Disease | DX: J44.9 Chronic obstructive pulmonary disease, unspecified (principal); I25.9 Chronic ischemic heart disease, unspecified; Z79.899 Other long term (current) drug therapy; Z87.891 Personal history of nicotine dependence | CPT/HCPCS: 99212 ==

== ENCOUNTER 2024-01-10 11:06 | Outpatient (REF) | payer MEDICARE, SELFPAY ==
[2024-01-10 14:29] LABS: Estimated Average Glucose 148 mg/dL; Hemoglobin A1C 152.0222 umol/L; Hemoglobin A1c % 6.8 % (<6.0)
[2024-01-10 14:49] LABS: Alanine Aminotransferase 11 U/L (0-31); Albumin Level 3.8 g/dL (3.5-5.0); Alkaline Phosphatase 94 U/L (39-117); Anion Gap 15 (12-20); Aspartate Amino Transferase 15 U/L (5-31); Bilirubin Direct 0.1 mg/dL (0.0-0.5); Bilirubin Total 0.3 mg/dL (0.0-1.0); Blood Urea Nitrogen 21 mg/dL (9-16); Calcium 10.1 mg/dL (8.4-10.2); Carbon Dioxide 26 mmol/L (22-29); Chloride 102 mmol/L (96-108); Cholesterol 157 mg/dL (<200); Estimated Glomerular Filt Rate 45; Glucose Random 157 mg/dL (60-115); HDL Cholesterol 31 mg/dL (>40); LDL Cholesterol Calculated 98 mg/dL (<100); Potassium 5.3 mmol/L (3.3-5.1); Sodium 138 mmol/L (135-145); Total Protein 6.8 g/dL (6.5-8.0); Triglycerides 140 mg/dL (<150)
== END 2024-01-10 11:07 | disposition home or self-care (01) ==
LOC: HO.CHCLDS 11:06
PROVIDERS: Visit Provider Student in an Organized Health Care Education/Training Program
DX: E11.9 Type 2 diabetes mellitus without complications (principal); I50.33 Acute on chronic diastolic (congestive) heart failure
CPT/HCPCS: 36415; 80048; 80061; 80076; 83036

== ENCOUNTER 2024-04-06 08:44 | Outpatient (AMB) | payer MEDICARE, SELFPAY ==
--- NOTE | 2024-04-06 08:55 | A.OFFVIS_ITS ---
Vital Signs 04/06/24 08:56 Height 5 ft 1 in Weight 207 lb 3.752 oz BMI 39.2 BP 120/80 Blood Pressure Location Lt brachial Position Sitting Pulse 91 Intake Visit Reasons: [employer]/Dr. Copeland/CHF Intake Note: New patient hx stent from Dr Copeland dx CHF c/o sob [employer]r Required: No [employer]: [employer] Present Accompanied by: Friend Allergies levofloxacin [From Levaquin] Adverse Reaction (Intermediate, Verified 12/31/23 09:06) Muscle Pain Pain Med Sensitivity Allergy (Unknown, Uncoded 03/11/22 15:13) none Medication List - Last Reconciled 04/06/24 by Bunny Florez MD aspirin 81 mg PO QAM atorvastatin 80 mg PO BEDTIME azelastine-fluticasone 137-50 mcg/spray (Dymista) USE 1 SPRAY IN EACH NOSTRIL TWICE DAILY azithromycin For 250 mg dose pack: take 500 mg today (day 1), then 250 mg for 4 days (days 2-5) PO calcium carbonate 1 tab PO QAM cyanocobalamin (vitamin B-12) 1 tab PO QAM ferrous sulfate 1 tab PO BID zztbgqasjxf-lizklmuyy-yydyzpzx 200-62.5-25 mcg (Trelegy Ellipta) 1 ea PO DAILY gabapentin 100 mg PO BEDTIME glipizide 5 mg PO DAILY ibuprofen 600 mg PO Q8H PRN 10 days ipratropium-albuterol 20-100 mcg/actuation (Combivent Respimat) 1 puff inhalation Q4H 30 days loratadine 10 mg PO DAILY 30 days meloxicam 7.5 mg PO BID metformin 1,000 mg PO BID metoprolol tartrate 25 mg PO DAILY nitroglycerin 1 tab sublingual NEEDED PRN oxybutynin chloride ER 1 tab PO DAILY@1200 pantoprazole 40 mg PO BID prednisone 40 mg PO DAILY PRN sertraline 1 tab PO BEDTIME tramadol 50 mg PO Q12H PRN trazodone 1 tab PO BEDTIME walker Folding Front wheeled walker HPI Comments Details: Thank you for referring Deedee in cardiology consultation today for management of exertional shortness of breath. She is a pleasant 73-year-old female with prior history of STEMI in 2013 with symptoms of indigestion at that time, presented to [facility] subsequently emergently transferred to [facility] where she underwent a cardiac catheterization which had shown 100% mid- LAD occlusion undergoing drug-eluting stent at that time but also had residual 60% blockages in the OM2 as well as the RCA as well as 99% occlusion in the ramus branch which was left untreated. Patient then followed up with Cardiology for few years and then subsequently was discharged. Has been taking all her medications. Has moderately severe COPD which has remained stable as pulmonary note. Over the last year she has been getting increasing symptoms of exertional shortness of breath which was out of proportion to her COPD without any significant wheezing and that led to further cardiac workup. She underwent a dobutamine myocardial perfusion imaging which showed basal inferior inferolateral ischemia. She had an echocardiogram 2 years ago which had shown normal LV systolic function with elevated filling pressures with moderately increased wall thickness. Overall findings consistent with hypertensive heart disease with diastolic dysfunction. She only has symptoms exertional shortness of breath. She denies any orthopnea, PND, leg edema. Denies excessive wheezing. Denies any prolonged palpitation irregular heartbeat. Denies any exertional chest pain. She said currently she is not smoking. She also has significant issues with weight. She walks with help of a walker as she says she can barely walk 50 ft without getting short of breath. [facility] Medical History (Updated 04/06/24 @ 09:34 by Bunny Florez MD) MRSA (methicillin resistant Staphylococcus aureus) Anxiety and depression History of blood transfusion Myocardial infarct Diarrhea Arthritis Diabetes GERD (gastroesophageal reflux disease) Coronary artery disease Surgical History Hx of colonoscopy Hx of tonsillectomy Hx of cholecystectomy H/O: hysterectomy History of total right knee replacement (TKR) History of cardiac catheterization Family History Father Colon cancer Social History Household Members: None Are you a primary home care coordinator to a significant other at home: No Do you presently have visiting nurse or other home services: Yes ([facility]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-) Unable to assess alcohol history related to: Unable to respond Alcohol intake: unknown Patient Tobacco Use Status: Former Tobacco user Tobacco use type: Cigarette Years Smoked: 40 Second Hand Smoke Exposure: No service: No Current occupational status: retired Review of Systems Const Denies chills, Denies daytime sleepiness, Denies fatigue, Denies fever(s), Denies frequent falls, Denies poor appetite, Denies snoring, Denies stops breathing during sleep, Denies weakness, Denies weight gain and Denies weight loss Eyes Denies loss of vision ENT Denies dizziness and Denies hearing loss Card Denies chest pain, Denies claudication, Denies leg edema, Denies lightheadedness, Denies palpitations, Reports dyspnea, Reports dyspnea on exertion and Reports orthopnea Resp Denies cough, Denies excessive phlegm production, Reports dyspnea, Reports dyspnea on exertion, Denies snoring and Denies wheezing GI Denies abdominal pain, Denies hematochezia, Denies change in bowel habits, Denies nausea and Denies vomiting Denies urinary frequency and Denies dysuria Musc Denies arthralgias, Denies muscle weakness, Denies numbness and Denies other (frequent falls) Skin/Breast Denies nail changes and Denies rash Neuro Denies Abnormal speech present, Denies dizziness, Denies frequent falls, Denies loss of vision, Denies memory loss, Denies numbness and Denies weakness Psych Denies depression and Denies memory loss Endo Denies fatigue and Denies palpitations Zenon/Lymph Reports easy bruising and Reports other (anemia) Aller/Immun Denies wheezing Physical Exam Vital Signs: Last Vital Signs Pulse 91 04/06/24 08:56 BP 120/80 04/06/24 08:56 BMI result Body Mass Index 39.2 Const General: cooperative, comfortable, no acute distress, alert and awake Nutritional Appearance: obese morbidly obese Orientation/consciousness: patient oriented x3 Limitations: ambulation with walker HEENT Head: Yes normocephalic and Yes atraumatic Neck Neck: Yes trachea midline, Yes supple and Yes no JVD Resp Effort & Inspection: normal respiratory effort Auscultation: clear to auscultation bilaterally and diminished lung sounds Cardio Jugular venous distension: no JVD Palpation: normal PMI Rate: regular rate Rhythm: regular rhythm Heart sounds: S1 normal heart sound present, S2 normal heart sound present, no click, no gallops and no murmurs GI Auscultation: normal bowel sounds Skin General skin exam: no rashes or lesions noted Neuro General: patient oriented x3 and no focal motor deficits Speech: No Abnormal speech present Extrem General: Yes no clubbing, cyanosis or edema Office Procedures EKG Details: EKG shows normal sinus rhythm with left anterior fascicular block with pulmonary disease pattern [id number], Complete Assessment & Plan Assessment & Plan (1) Dyspnea on exertion: Code(s): R06.09 - Other forms of dyspnea Category: Medical Plan: Patient worsening exertional shortness of breath without worsening pulmonary function. This could be multifactorial related to underlying coronary artery disease which can present as exertional shortness of breath as anginal equivalent. Patient also has significant other comorbidities including diastolic dysfunction and hypertensive heart disease without any clinical evidence of CHF, morbid obesity, deconditioning as well as moderately severe COPD which could also explain her shortness of breath. At this point time I would suggest given her prior history of CAD but not well optimized LDL over the many years with continue risk factors, to pursue cardiac catheterization to evaluate for coronary anatomy as well as to evaluate for hemodynamics. Would suggest left and right heart catheterization with possible PCI if required. This was discussed with her. We discussed the procedure in detail including, risks, benefits, alternatives. This will be scheduled in near future. Meanwhile will start her on isosorbide 30 mg to regimen. Continue low-dose aspirin therapy. Continue metoprolol therapy, should be metoprolol succinate. Will change her prescription. Continue high-intensity statin therapy. See below for management. She has no signs of congestive heart failure but possible that her diastolic function is worsening and she may eventually develop heart failure syndrome. This was discussed with her. Repeat echocardiogram in near future. Continue to participate in aggressive weight loss program regular physical activity. (2) Coronary artery disease: Comment: s/p stent 2012 Code(s): I25.10 - Atherosclerotic heart disease of [place] coronary artery without angina pectoris Category: Medical Plan: CAD with remote PCI for acute coronary syndrome with mid LAD drug-eluting stent. Continue low-dose aspirin therapy for life. Cardiac catheterization above and further treatment based on finding of cardiac catheterization. Continue high- intensity statin therapy. LDL is not well optimized. Suggest to add ezetimibe 10 mg to her regimen. Target goal LDL closer to 60 mg/dL. Blood pressure is currently well optimized on current therapy. Importance of good blood pressure control was discussed. Smoking cessation was applauded. In the long run she will require aggressive weight loss program. Follow up in the clinic after cardiac catheterization 4-5 weeks Medications: Changed From prednisone 40 mg (2 x 20 mg) PO DAILY 5 days 10 tabs 0RF To prednisone 40 mg PO DAILY PRN Coding Level of Care Code New Pt Level 4 (12303) Diagnoses Dyspnea on exertion R06.09 Coronary artery disease I25.10 CPT Codes EKG - CPT: 59137-[id number], Complete ([id number])
[2024-04-06 08:56] VITALS: BP 120/80; PULSE 91; BMI 39.2
== END 2024-04-06 09:30 | disposition home or self-care (01) ==
PROVIDERS: PCP Student in an Organized Health Care Education/Training Program; Visit Provider Internal Medicine Cardiovascular Disease
DX: I25.10 Atherosclerotic heart disease of native coronary artery without angina pectoris (principal); R06.09 Other forms of dyspnea; I44.4 Left anterior fascicular block
CPT/HCPCS: 93010; 99214

== ENCOUNTER → 2024-04-06 08:44 | Outpatient (BNVA) | payer MEDICARE, SELFPAY | PROVIDERS: PCP Student in an Organized Health Care Education/Training Program; Visit Provider Internal Medicine Cardiovascular Disease | DX: J44.9 Chronic obstructive pulmonary disease, unspecified (principal); R06.09 Other forms of dyspnea; I25.10 Atherosclerotic heart disease of native coronary artery without angina pectoris | CPT/HCPCS: 93005; 99212 ==

== ENCOUNTER 2024-04-12 11:25 | Outpatient (REF) | payer MEDICARE, SELFPAY ==
[2024-04-12 12:31] LABS: Hematocrit 35.5 % (37.0-47.0); Hemoglobin 11.4 g/dl (12.0-16.0); Mean Corpuscular HGB Conc 32.1 g/dl (31.0-35.0); Mean Corpuscular Hemoglobin 28.9 pg (27.0-33.0); Mean Corpuscular Volume 89.9 fL (80.0-98.0); Mean Platelet Volume 9.9 fL (9.4-12.3); Platelet Count 208 X10*3/uL (160-400); Red Blood Count 3.95 X10*6/uL (4.20-5.50); Red Cell Distribution Width 14.1 % (11.0-16.0); White Blood Count 7.1 X10*3/uL (4.8-10.8)
[2024-04-12 12:38] LABS: INTERNATIONAL NORM RATIO 0.9 (0.9-1.1); Prothrombin Time 11.1 SEC (11.1-13.3)
[2024-04-12 12:59] LABS: Anion Gap 13 (12-20); Blood Urea Nitrogen 23 mg/dL (9-16); Calcium 9.2 mg/dL (8.4-10.2); Carbon Dioxide 25 mmol/L (22-29); Chloride 107 mmol/L (96-108); Estimated Glomerular Filt Rate 56; Glucose Random 110 mg/dL (60-115); Potassium 4.6 mmol/L (3.3-5.1); Sodium 140 mmol/L (135-145)
== END 2024-04-12 11:26 | disposition home or self-care (01) ==
LOC: HO.LAB 11:25
PROVIDERS: PCP Student in an Organized Health Care Education/Training Program; Visit Provider Internal Medicine Cardiovascular Disease
DX: R06.09 Other forms of dyspnea (principal)
CPT/HCPCS: 36415; 80048; 85027; 85610

== ENCOUNTER → 2024-04-20 23:59 | Outpatient (BNV) | payer MEDICARE, SELFPAY | PROVIDERS: PCP Student in an Organized Health Care Education/Training Program; Visit Provider Internal Medicine Cardiovascular Disease | DX: R93.1 Abnormal findings on diagnostic imaging of heart and coronary circulation (principal) | CPT/HCPCS: 93458; 93571; 99152 ==

== ENCOUNTER 2024-05-02 08:53 | Outpatient (AMB) | payer MEDICARE, SELFPAY ==
--- NOTE | 2024-05-02 08:54 | A.OFFVIS_ITS ---
Vital Signs 05/02/24 09:04 Height 5 ft 1 in Weight 200 lb 9.93 oz BMI 37.9 BP 130/68 Blood Pressure Location Lt brachial Position Sitting Pulse 89 Pulse Source Pulse Oximeter Intake Visit Reasons: Follow up post cardiac cath Allergies levofloxacin [From Levaquin] Adverse Reaction (Intermediate, Verified 12/31/23 09:06) Muscle Pain Pain Med Sensitivity Allergy (Unknown, Uncoded 03/11/22 15:13) none Medication List - Last Reconciled 05/02/24 by FLACO Singh aspirin 81 mg PO QAM atorvastatin 80 mg PO BEDTIME azelastine-fluticasone 137-50 mcg/spray (Dymista) USE 1 SPRAY IN EACH NOSTRIL TWICE DAILY calcium carbonate 1 tab PO QAM cyanocobalamin (vitamin B-12) 1 tab PO QAM ezetimibe 10 mg PO DAILY ferrous sulfate 1 tab PO BID wmjulnzqchp-jbvnsapkr-wxnesydf 200-62.5-25 mcg (Trelegy Ellipta) 1 ea PO DAILY gabapentin 100 mg PO BEDTIME PRN glipizide 5 mg PO DAILY ibuprofen 600 mg PO Q8H PRN 10 days ipratropium-albuterol 20-100 mcg/actuation (Combivent Respimat) 1 puff inhalation Q4H 30 days isosorbide mononitrate ER 30 mg PO DAILY loratadine 10 mg PO DAILY 30 days metformin 1,000 mg PO BID metoprolol succinate ER (Toprol XL) 25 mg PO DAILY nitroglycerin 1 tab sublingual NEEDED PRN oxybutynin chloride ER 1 tab PO DAILY@1200 pantoprazole 40 mg PO BID prednisone 40 mg PO DAILY PRN sertraline 1 tab PO BEDTIME tramadol 50 mg PO Q12H PRN trazodone 1 tab PO BEDTIME walker Folding Front wheeled walker HPI HPI Follow up post cardiac cath: Details: Deedee morgan is a 74-year-old female past medical history of COPD, hypertension, obesity, hypertensive heart disease, coronary artery disease with STEMI 2012, lad stent at that time he was being evaluated for increased shortness of breath. She recently underwent a right heart catheterization showing moderate CAD. Today she reports that she continues to have shortness of breath with walking. She denies shortness of breath at rest or when laying down. She sleeps with 2 pillows which is her norm. She has an occasional intermittent cough. No recent illness or fevers. No chest discomfort at rest or with activity. No lightheadedness, presyncope, syncope, falls. She ambulates with a cane. Taking her meds as directed. Radial catheterization site feels fine. Sister is present. [facility] Medical History MRSA (methicillin resistant Staphylococcus aureus) Anxiety and depression History of blood transfusion Myocardial infarct Diarrhea Arthritis Diabetes GERD (gastroesophageal reflux disease) Coronary artery disease Surgical History Hx of colonoscopy Hx of tonsillectomy Hx of cholecystectomy H/O: hysterectomy History of total right knee replacement (TKR) History of cardiac catheterization Family History Father Colon cancer Social History Household Members: None Are you a primary inspector health care facilities to a significant other at home: No Do you presently have visiting nurse or other home services: Yes ([facility] - [facility]- 2 hours --) Unable to assess alcohol history related to: Unable to respond Alcohol intake: unknown Patient Tobacco Use Status: Former Tobacco user Tobacco use type: Cigarette Years Smoked: 40 Second Hand Smoke Exposure: No service: No Current occupational status: retired Review of Systems Const All systems reviewed & are unremarkable except as noted in HPI and below Denies weakness ENT Denies dizziness Card Denies chest pain, Denies chest pain with activity, Denies syncope, Denies rapid heart rate, Denies pedal edema, Denies edema, Denies leg edema, Denies lightheadedness, Denies palpitations, Reports dyspnea, Reports dyspnea on exertion and Denies orthopnea Resp Denies cough, Reports dyspnea and Reports dyspnea on exertion GI Denies hematochezia and Denies change in stool character Musc Denies abnormal gait, Denies muscle cramps, Denies muscle weakness, Denies numbness, Denies radiating pain into limb and Denies tingling Neuro Denies abnormal gait, Denies dizziness, Denies syncope, Denies numbness, Denies tingling and Denies weakness Endo Denies palpitations Physical Exam Vital Signs: Last Vital Signs Pulse 89 05/02/24 09:04 BP 130/68 05/02/24 09:04 BMI result Body Mass Index 37.9 Const Other: ob[place], ambulate with wheeling walker General: cooperative, healthy appearing, comfortable and no acute distress Orientation/consciousness: patient oriented x3 Neck Neck: Yes normal visual inspection and Yes no JVD Resp Effort & Inspection: normal respiratory effort Auscultation: clear to auscultation bilaterally, no crackles, no rales, no rhonchi and no wheezes Cardio Jugular venous distension: no JVD Rate: regular rate Rhythm: regular rhythm Heart sounds: S1 normal heart sound present, S2 normal heart sound present, no murmurs and no rubs Neuro General: patient oriented x3 Extrem General: Yes normal to inspection, No no pedal edema and No calf tenderness Psych Appearance: grossly normal Mental Status: mental status grossly normal Speech and movement: Normal speech and movement present Assessment & Plan Assessment & Plan (1) Dyspnea on exertion: Code(s): R06.09 - Other forms of dyspnea Category: Medical Plan: Patient reports chronic and increasing shortness of breath with activity. She does have a known history of COPD. She also has known history of CAD with prior LAD stent and residual OM2, RCA and ramus stenosis. Last echocardiogram 12/19/2021 showed EF 60-65%, moderate increase in the LV wall thickness. She underwent a cardiac catheterization on 04/20/2024 showing moderate degree of anthony nary artery disease, no new stents placed. This does not explain her increasing shortness of breath. A repeat echocardiogram is planned for 05/19/2024. She does not appear fluid overloaded on examination. Some of her shortness of breath can be explained by her COPD, obesity, sedentary lifestyle. At this time will continue on med management for CAD including aspirin, high-dose atorvastatin and Zetia, metoprolol. Signs and symptoms of angina reviewed with her and she states understanding. Emergency care if ever needed for symptoms. Cardiology follow-up in the office 6 months, sooner if needed. (2) Coronary artery disease: Comment: s/p stent 2011 Code(s): I25.10 - Atherosclerotic heart disease of [place] coronary artery without angina pectoris Category: Medical Plan: As above (3) S/P cardiac cath: Comment: 04/20/2024, left main normal, mid LAD stent 50% stenosis, IFR 0.92, left circumflex mid 65% stenosis, RCA proximal 60% stenosis with remodeling ectasia, right PDA mid 50% stenosis. Code(s): Z98.890 - Other specified postprocedural states Category: Surgical Plan: Right radial catheterization site healing well, palpable radial pulse, normal right hand assessment. (4) Hyperlipidemia: Code(s): E78.5 - Hyperlipidemia, unspecified Category: Medical Plan: [place] LDL goal less than 70. Labs done on 01/10/2024 showed LDL 98. She is on high-dose atorvastatin and Zetia 10 mg daily. She tells me she has been on these meds long-term. Her cholesterol is not optimally controlled. Will order Repatha. When she has been on for 2 months will plan for a lipid profile. Patient informed of this plan. She is agreeable and has no concerns about self injection. (5) Stented coronary artery: Comment: Lad stent 2012 Code(s): Z95.5 - Presence of coronary angioplasty implant and graft Category: Surgical Plan: Anterior STEMI 2012 with LAD stent placement Plan Time spent on chart review, documentation, interview and assessment Orders: Orders Lipid Panel 2 Months Rachael Paige NP-C I25.10 - Atherosclerotic heart disease of [place] coronary artery without angina pectoris Medications: New evolocumab (Repatha SureClick) 140 mg subcut Q2W 6 mL 3RF 90 days Rachael Paige NP-C Changed From gabapentin 100 mg PO BEDTIME 30 caps 0RF To gabapentin 100 mg PO BEDTIME PRN Merari Armijo NP Coding Level of Care Code Est Pt Level 4 (16903) Diagnoses Dyspnea on exertion R06.09 Coronary artery disease I25.10 S/P cardiac cath Z98.890 Hyperlipidemia E78.5 Stented coronary artery Z95.5 Time Spent (min) 30
[2024-05-02 09:04] VITALS: BP 130/68; PULSE 89; BMI 37.9
== END 2024-05-02 09:23 | disposition home or self-care (01) ==
PROVIDERS: PCP Student in an Organized Health Care Education/Training Program; Visit Provider Nurse Practitioner Family
DX: R06.09 Other forms of dyspnea (principal); I25.10 Atherosclerotic heart disease of native coronary artery without angina pectoris; Z98.890 Other specified postprocedural states; E78.5 Hyperlipidemia, unspecified; Z95.5 Presence of coronary angioplasty implant and graft
CPT/HCPCS: 99214

== ENCOUNTER → 2024-05-02 08:53 | Outpatient (BNVA) | payer MEDICARE, SELFPAY | PROVIDERS: PCP Student in an Organized Health Care Education/Training Program; Visit Provider Nurse Practitioner Family | DX: I25.10 Atherosclerotic heart disease of native coronary artery without angina pectoris (principal); R06.09 Other forms of dyspnea; E78.5 Hyperlipidemia, unspecified; Z98.890 Other specified postprocedural states; Z95.5 Presence of coronary angioplasty implant and graft | CPT/HCPCS: 99212 ==

== ENCOUNTER → 2024-05-18 08:39 | Outpatient (REF) | payer MEDICARE, SELFPAY ==
--- NOTE | 2024-05-18 08:43 | CA_ITS ---
Transthoracic Echocardiogram Patient (Last, First, Middle): Deedee Linares F Gender: Female Date of : 1950 Age: 74 Procedure Date: 05/18/2024 Procedure Type: Transthoracic Echocardiogram Location: OP Height: 154.94 cm Weight: 90.72 kg BSA: 1.89 m2 Heart Rate: 92 bpm BP: 134 / 70 mmHg Optical Lab Technician: DEONDRE Referring MD: Bunny Florez MD Technology Auditor: Bunny Florez MD Symptoms: R06.09 - Other forms of dyspnea Study Quality: Adequate ECG Rhythm: Sinus Conclusions: - 1. Normal LV ejection fraction at 55-60% with impaired relaxation filling pattern 2. Mild aortic stenosis 3. Severely elevated right ventricular systolic pressure suggestive of pulmonary hypertension, with mildly elevated right atrial pressures Findings Left Ventricle Normal left ventricular size, thickness, and systolic function. The visually estimated ejection fraction is between 55-60%. Spectral Doppler is indicative of an impaired relaxation filling pattern. E/E prime ratio is between 8 and 15 consistent with indeterminate filling pressures. Right Ventricle Normal right ventricular cavity size. There is low normal right ventricular systolic function. Atria The left atrium is likely dilated. Interatrial shunt cannot be excluded. The right atrium was not well visualized. Aortic Valve The aortic valve was not well visualized. There is mild calcification of the aortic valve. There is mild aortic valve stenosis. The peak aortic gradient is 14 mmHg.The mean gradient is 8 mmHg. There is no aortic valve regurgitation. Mitral Valve There is mild anterior and posterior mitral leaflet thickening. There is trace mitral valve regurgitation. There is no mitral valve stenosis. Pulmonic Valve The pulmonic valve is likely normal. Tricuspid Valve Normal tricuspid valve structure. There is mild tricuspid valve regurgitation. Mildly elevated right atrial pressure. Severe pulmonary hypertension is present. Great Vessels The aorta was not well visualized. The pulmonary artery was not well visualized. There is no dilatation of the ascending aorta measuring 3.30 cm. Venous The inferior vena cava is mildly dilated and collapses less than 50% with inspiration. Pericardium/Pleural The pericardium was not well visualized. Measurements 2D Linear Measurements IVSd: 0.78 0.6-0.9/0.6-1.0 cm LVIDd: 5.17 3.9-5.3/4.2-5.9 cm LVIDd Index: 2.74 2.4-3.2/2.2-3.1 cm/m2 LVIDs: 3.35 2.0-3.6 cm LVPWd: 0.86 0.7-1.1 cm LA Diam: 3.80 2.7-3.8/3.0-4.0 cm LAIDs Index: 2.01 1.5-2.3 cm/m2 LV Mass: 183.87 67-162/88-224 g LV Mass Index: 97.29 43-95/49-115 g/m2 LVOT Diam: 1.80 3.0+(-)1.3 cm 2D Systolic Function EF 4C: 56.50 >55% EF 2C: 57.90 >55% EF BiP: 56.80 >55% Mitral Valve MV Pk E: 0.84 MV PK A: 0.99 MV Decel Time: 199.00 E/A: 0.80 E'Lateral: 7.72 E'Medial: 3.70 E/E' Med: 22.70 E/E' Lat: 10.90 PHT: 58.00 MVA PHT: 3.79 Decel Cross: 4.22 Aortic Valve AoV Pk Edgardo: 1.89 AoV Mn Edgardo: 1.30 AoV VTI: 0.38 AoV Pk Grad: 14.00 Aov Mn Grad: 8.00 MACKENZIE Cont.VTI: 1.36 LVOT LVOT Pk Edgardo: 0.85 LVOT Mn Edgardo: 0.57 LVOT VTI: 0.20 LVOT Pk Grad: 3.00 LVOT Mn Grad: 2.00 LVOT Diam: 1.80 LVOT Area: 2.54 Diastolic Function MV Pk E: 0.84 MV Pk A: 0.99 E/A: 0.80 E'Medial: 3.70 E/E' Med: 22.70 E' Laterial: 7.72 E/E' Lat: 10.90 Right Ventricle TAPSE (mm): 17.50 TVS' Edgardo: 12.60 Tricuspid Valve TR Pk Edgardo: 3.90 TR Pk Grad: 61.00 RA Press: 8.00 RVSP: 69.00 Great Vessels Aorta Sinus of Valsalva: 2.80 2.0-3.5 cm Ao Asc: 3.30 2.1-3.4 cm Pulmonary Valve PV Pk Edgardo: 0.93 Peak PV Grad: 3.00 Updated in Other Vendor System with Status of Final Bunny Florez MD electronically signed on 05/18/2024 3:05:33 PM with status of Final
== END ==
LOC: HO.CARD 08:39
PROVIDERS: PCP Student in an Organized Health Care Education/Training Program; Visit Provider Internal Medicine Cardiovascular Disease
DX: R06.09 Other forms of dyspnea (principal)
CPT/HCPCS: 93306

== ENCOUNTER → 2024-05-18 08:43 | Outpatient (BNV) | payer MEDICARE, SELFPAY | PROVIDERS: PCP Student in an Organized Health Care Education/Training Program; Visit Provider Internal Medicine Cardiovascular Disease | DX: I35.0 Nonrheumatic aortic (valve) stenosis (principal); I36.1 Nonrheumatic tricuspid (valve) insufficiency; I27.20 Pulmonary hypertension, unspecified | CPT/HCPCS: 93306 ==

== ENCOUNTER 2024-05-29 12:40 | Inpatient (IN) | payer MEDICARE, SELFPAY ==
--- NOTE | ~2024-05-29 | XR_ITS ---
EXAMINATION: XR CHEST CLINICAL INFORMATION: Shortness of breath COMPARISON: Prior chest October 2022 TECHNIQUE: Frontal view of the chest was obtained. FINDINGS: No significant abnormality is noted involving the heart, lungs, mediastinum, bony thorax or soft tissues. Incidental note made of calcification of the dorsal aorta unchanged. XR/XR chest 1V IMPRESSION: No acute disease. No change. Electronically signed by: David Garcia MD 05/29/2024 03:08 PM EDT RP
--- NOTE | ~2024-05-29 | CT_ITS ---
EXAMINATION: CT CHEST WITHOUT CONTRAST CLINICAL INFORMATION: Shortness of breath COMPARISON: Portions of chest CT 08/05/23 TECHNIQUE: Multidetector volumetric CT imaging of the chest was done. Axial MIP volume rendering provided. Sagittal and coronal reformatted images were obtained. This CT examination was performed using dose optimization techniques as appropriate, variously including the following: *Automated exposure control *Adjustment of mA and/or kV according to patient size (this includes techniques or standardized protocols for targeted exams where dose is matched to indication/reason for exam; i.e. 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 LUNGS: There is no abnormality of the trachea or mainstem bronchi. There is mild to moderate centrilobular emphysema. There is no new suspicious mass or nodule. The opacities seen on 08/05/23 have improved. There is a calcified granuloma in the right upper lobe. There are a few scattered reticular peripheral opacities in the lung bases right greater than left. MEDIASTINUM: There are no measurably enlarged mediastinal or hilar lymph nodes. There is no suspicious abnormality of the esophagus. CORONARY ARTERY CALCIFICATION: Marked coronary calcification. There is no thoracic aortic aneurysm. There is extensive arterial calcification. The main pulmonary artery is normal caliber. The heart does not appear enlarged. There is calcification of the region of the aortic valve. There is no pericardial fluid or thickening. PLEURA: There is no pleural effusion. No pleural mass or thickening. AXILLA: No lymphadenopathy. UPPER ABDOMEN: There is no significant change in enlarged low attenuating left adrenal gland perhaps hyperplasia. This does not require any specific imaging follow-up. OSSEOUS STRUCTURES: No suspicious focal lesion. There are some osteophytes in the spine and there is disc disease in the thoracic and lumbar spine CT/CT chest wo IV con IMPRESSION: Underlying emphysema. No definite acute pneumonia or edema. The opacities demonstrated on 08/05/23 have improved. Extensive coronary calcifications Fleischner guidelines were followed. Electronically signed by: Chris Coffey MD 05/30/2024 04:37 PM EDT
--- NOTE | 2024-05-29 12:42 | ED_ITS ---
HPI - General Adult General Chief complaint: Dyspnea Stated complaint: diff breathing Time Seen by Provider: 05/29/24 13:15 Source: patient Mode of arrival: ambulatory Limitations: no limitations History of Present Illness ED Provider: Dr. Mikey Irene HPI narrative: 74-year-old female with a history of coronary disease, hyperlipidemia, asthma, COPD who presents emergency department for evaluation of shortness of breath and dyspnea on exertion. Patient states that she has been having increased shortness of breath dyspnea on exertion over 4-5 months. She told me that she has been seen by Cardiology and her hydraulic and plumbing installer and they have not been able to determine why she is worse. She did see her hydraulic and plumbing installer, 1 week prior and started on azithromycin x7 days and nebulizer treatments 3 to 4 times a day,, she completed the antibiotic course, she has been using her nebulizer and despite this she is still not feeling better. She that she walked 20 ft from her apartment to her truck and was severely winded therefore she came to the emergency department for evaluation. She denied fever but he has had chills. She complains of rhinorrhea. She has a cough which she states is chronic. She denied nausea, vomiting, diarrhea, myalgias arthralgias. Patient had a cardiac stress echo done on 12/14/2023 which revealed basal inferior and inferior lateral ischemia, EF of 53% and transient ischemic dilatation was not present Related Data Home Medications ?Medication ?Instructions ?Recorded ?Confirmed cyanocobalamin (vitamin B-12) 1 tab PO QAM 08/12/20 05/02/24 1,000 mcg tablet ferrous sulfate 325 mg (65 mg 1 tab PO BID 08/12/20 05/02/24 iron) tablet nitroglycerin 0.4 mg sublingual 1 tab sublingual NEEDED PRN 08/12/20 05/02/24 tablet Chest Pain oxybutynin chloride 10 mg 1 tab PO DAILY@1200 08/12/20 05/02/24 tablet,extended release 24 hr sertraline 50 mg tablet 1 tab PO BEDTIME 08/12/20 05/02/24 trazodone 50 mg tablet 1 tab PO BEDTIME 08/12/20 05/02/24 glipizide 5 mg tablet 5 mg PO DAILY 09/30/21 05/02/24 calcium carbonate 1 tab PO QAM 10/31/21 05/02/24 tramadol 50 mg tablet 50 mg PO Q12H PRN severe pain 02/10/22 05/02/24 aspirin 81 mg tablet,delayed 81 mg PO QAM 03/11/22 05/02/24 release atorvastatin 80 mg tablet 80 mg PO BEDTIME 04/06/24 05/02/24 metformin 1,000 mg tablet 1,000 mg PO BID 04/06/24 05/02/24 pantoprazole 40 mg tablet,delayed 40 mg PO BID 04/06/24 05/02/24 release prednisone 20 mg tablet 40 mg PO DAILY PRN 04/06/24 05/02/24 gabapentin 100 mg capsule 100 mg PO BEDTIME PRN 05/02/24 05/02/24 Previous Rx's ?Medication ?Instructions ?Recorded walker #1 ea 10/13/21 loratadine 10 mg tablet 10 mg PO DAILY 30 days #30 tabs 02/10/22 azelastine 137 mcg-fluticasone 50 See Rx Instructions .Route 10/21/22 mcg/spray nasal spray (Dymista) .COMPLEX #23 grams ibuprofen 600 mg tablet 600 mg PO Q8H PRN pain 10 days #20 10/25/22 tabs ipratropium 20 mcg-albuterol 100 1 puff inhalation Q4H 30 days #4 12/31/23 mcg/actuation mist for inhalation grams (Combivent Respimat) fluticasone fur. 200 mcg-umeclid 1 ea PO DAILY #60 ea 02/22/24 62.5 mcg-vilant 25 mcg inhalat.powder (Trelegy Ellipta) ezetimibe 10 mg tablet 10 mg PO DAILY #30 tabs 04/06/24 isosorbide mononitrate 30 mg 30 mg PO DAILY #30 tabs 04/06/24 tablet,extended release 24 hr metoprolol succinate 25 mg 25 mg PO DAILY #30 tabs 04/06/24 tablet,extended release 24 hr (Toprol XL) evolocumab 140 mg/mL subcutaneous 140 mg subcut Q2W 90 days #6 mL 05/02/24 pen injector (Daniella Mendosa) azithromycin 250 mg tablet See Rx Instructions PO .COMPLEX #6 05/23/24 tabs ipratropium 0.5 mg-albuterol 3 mg 3 ml inhalation Q4-6H PRN wheezing 05/23/24 (2.5 mg base)/3 mL nebulization #180 mL soln Allergies Allergy/AdvReac Type Severity Reaction Status Date / Time amoxicillin Allergy Difficulty Verified 05/29/24 13:02 Breathing levofloxacin [From Levaquin] AdvReac Intermediate Muscle Pain Verified 05/29/24 13:02 Pain Med Sensitivity Allergy Unknown none Uncoded 03/11/22 15:13 Review of Systems 2 Review of Systems: Yes all other systems are reviewed and are negative [facility] Past Medical History Medical History MRSA (methicillin resistant Staphylococcus aureus) Anxiety and depression History of blood transfusion Myocardial infarct Diarrhea Arthritis Diabetes GERD (gastroesophageal reflux disease) Coronary artery disease Surgical History Hx of colonoscopy Hx of tonsillectomy Hx of cholecystectomy H/O: hysterectomy History of total right knee replacement (TKR) History of cardiac catheterization Family History Family History Father Colon cancer Social History Social History Household Members: None Are you a primary progressive care unit registered nurse to a significant other at home: No Do you presently have visiting nurse or other home services: Yes ([facility]- 2 hours M-W-) Unable to assess alcohol history related to: Unable to respond Alcohol intake: unknown Patient Tobacco Use Status: Former Tobacco user Tobacco use type: Cigarette Years Smoked: 40 Second Hand Smoke Exposure: No Advance Directives: Yes Advance Directives on File: Yes Advance Directives Date on File: 12/25/21 Do you have a plan to hurt others: No Plan service: No Current occupational status: retired Physical Exam ED Vital Signs: Vital Signs - 24 hr 05/29/24 12:59 05/29/24 15:00 05/29/24 15:33 Temperature 97.9 F 98.1 F Pulse Rate 85 76 72 Respiratory Rate 24 H 14 13 Blood Pressure 132/61 126/70 Pulse Oximetry 80 L 97 Oxygen Delivery Method Room Air BMI result Body Mass Index 37.0 Vital signs revealed an elevated respiratory rate of 24, O2 saturation on room air was 80% and on 4 L of oxygen via nasal cannula O2 saturation is 97% Exam: General: Awake, alert in no distress Head: Normocephalic, atraumatic EENT: PERRL, Lids normal, sclera normal, conjunctiva normal, nose normal , ears normal, throat without erythema or exudates Neck: Supple, no adenopathy Lung: breath sounds symmetric, wheezing at the end of expiration, but no rales or rhonchi Chest: symmetric movement, nontender Heart: regular rate and rhythm, normal S1, S2 no murmurs or rubs Abdomen: soft, non-tender, nondistended, normal bowel sounds Back: no vertebral tenderness, no CVAT Extremities: no deformities, moves all extremities symmetrically Neuro: Awake, alert, oriented, normal speech, cranial nerves intact, moves all extremities symmetrically Psych: Pleasant, cooperative Course Course Course Narrative: RME performed by Holli Cook PA-C. Patient is a 74 year old assigned female at presenting to the emergency department with shortness of breath. Patient states she has been on antibiotics for a week and it is not getting better. Patient states that her breathing is getting worse. Detailed physical exam and review of systems are deferred to the submarine diver. EKG, labs, imaging, and swabs ordered. credit collections rep aware. Medications Administered Generic Name Dose Route Start Last Admin Trade Name Freq PRN Reason Stop Dose Admin Doxycycline Hyclate 100 mg/ 250 mls @ 166.67 mls/hr 05/29/24 15:10 05/29/24 15:58 Sodium Chloride IV 05/29/24 16:39 166.67 mls/hr ONCE ONE Administration Discontinued Medications Generic Name Dose Route Start Last Admin Trade Name Freq PRN Reason Stop Dose Admin Albuterol Sulfate 2.5 mg/ 0 mg 05/29/24 15:28 05/29/24 15:33 Albuterol/Ipratropium 3 ml INHALE 05/29/24 15:29 5 dose ONCE ONE Administration Ceftriaxone Sodium 1 gm/ 50 mls @ 100 mls/hr 05/29/24 15:10 05/29/24 15:58 Sodium Chloride IV 05/29/24 15:39 100 mls/hr ONCE ONE Administration Sodium Chloride 1,500 mls @ 1,500 mls/hr 05/29/24 15:10 05/29/24 15:59 Ns IV 05/29/24 16:09 1,500 mls/hr .Q1H STA Administration Methylprednisolone Sodium Succinate 125 mg 05/29/24 15:10 05/29/24 15:58 Methylprednisolone Sod Succ 125 Mg/2 Ml Vial IVPUSH 05/29/24 15:11 125 mg ONCE ONE Administration Medical Decision Making Medical Decision Making MDM Narrative: 74-year-old female with a history of coronary disease, hyperlipidemia, asthma, COPD who presents emergency department for evaluation of shortness of breath and dyspnea on exertion times 4-5 months, getting worse x1 week. Patient has a chronic cough which she states is unchanged, she did have chills and nausea but no fever. She was seen by her hydraulic and plumbing installer 1 week prior and was given a 7 day course of azithromycin and told to use her nebulizer 3-4 times a day with no improvement her symptoms. Today she had significant dyspnea on exertion at 20 ft. On presentation at triage her O2 saturation was 80% on room air and she does not wear oxygen at home. On 4 L of oxygen via nasal cannula. Lung exam did reveal wheezing at the end of expiration otherwise unremarkable. 15:23 Differential diagnosis: ?Includes but is not limited to pneumonia, bronchitis, chronic lung disease exacerbation, anemia, electrolyte abnormalities Course: 15:23 My interpretation patient's laboratory evaluation as follows: WBC was normal 9700. Patient had a normocytic anemia of 11.1 and 34.5-this is chronic. PT/INR PTT were normal. Lactic acid was elevated at 3.7. COVID-19, RSV and influenza were negative. Potassium elevated 5.3. BUN elevated 29 with a normal creatinine of 1.07. LFTs were normal. On my interpretation of the patient's x-ray, the patient has both left and right lower lobe infiltrates compared to previous x-ray taken on 10/22/2022 and I disagree with the radiology reading of no acute disease. Patient was treated with normal saline bolus 30 cc/kilogram based on her ideal weight and this was used because she is obese with a BMI of 37. Patient was also ordered to get ceftriaxone 1 g IV , azithromycin 500 mg IV and Solu-Medrol 125 mg IV. I did order a bronchodilator, she was evaluated by respiratory therapy and per protocol protocol she was treated with albuterol 5 mg nebulizer. I will discuss admission with the covering hospitalist. Admission/Observation Consideration of admission/observation: Escalation of care including admission/observation considered Consult Healthcare Provider Management of the patient was discussed with: Hospitalist Lab Data MDM Lab Attestation statement: I reviewed the patient's lab results. My interpretation patient's laboratory evaluation is as follows: 05/29/24 13:08 05/29/24 15:39 Labs: Lab Results 05/29/24 05/29/24 Range/Units 13:08 15:39 WBC 9.5 (4.8-10.8) X10*3/uL RBC 3.75 L (4.20-5.50) X10*6/uL Hgb 11.1 L (12.0-16.0) g/dl Hct 34.5 L (37.0-47.0) % MCV 92.0 (80.0-98.0) fL MCH 29.6 (27.0-33.0) pg MCHC 32.2 (31.0-35.0) g/dl RDW 14.5 (11.0-16.0) % Plt Count 255 (160-400) X10*3/uL MPV 9.5 (9.4-12.3) fL Immature Gran % (Auto) 0.8 H (0.0-0.4) % Neut % (Auto) 77.9 H (45-73) % Lymph % (Auto) 15.7 L (20-40) % Hitchcock % (Auto) 5.2 (2-11) % Eos % (Auto) 0.0 (0-4) % Baso % (Auto) 0.4 (0-2) % Lymph # (Auto) 1.5 (1.2-4.9) X10*3/uL Hitchcock # (Auto) 0.5 (0.1-1.2) X10*3/uL Eos # (Auto) 0.0 (0.0-0.4) X10*3/uL Baso # (Auto) 0.0 (0.0-0.2) X10*3/uL Abs Immat Gran (auto) 0.08 H (0.00-0.03) X10*3/uL Absolute Neuts (auto) 7.4 (2.0-8.3) x10*3/uL Absolute Nucleated RBC 0.000 (0.0-0.012) X10*3/uL Nucleated RBC % (auto) 0.0 (0.0-0.2) /100WBC PT 10.8 L (10.9-12.4) SEC INR 0.9 (0.9-1.1) APTT 28.6 (26.0-36.8) SEC Sodium 139 (135-145) mmol/L Potassium 5.3 H (3.3-5.1) mmol/L Chloride 106 (96-108) mmol/L Carbon Dioxide 23 (22-29) mmol/L Anion Gap 15 (12-20) BUN 29 H (9-16) mg/dL Creatinine 1.07 (0.5-1.4) mg/dL Estim Creat Clear Calc 47.9 Estimated GFR 50 Random Glucose 70 (60-115) mg/dL Lactic Acid 3.7 H* (0.5-2.0) mmol/L Calcium 9.1 (8.4-10.2) mg/dL Magnesium 1.7 (1.6-2.6) mg/dL Total Bilirubin 0.3 (0.0-1.0) mg/dL AST 15 (5-31) U/L ALT 14 (0-31) U/L Alkaline Phosphatase 86 (39-117) U/L Troponin I High Sens 4.7 (<3.5-17.0) ng/L B-Natriuretic Peptide 120 H (<100) pg/mL Total Protein 5.9 L (6.5-8.0) g/dL Albumin 3.5 (3.5-5.0) g/dL Influenza Type A (PCR) NEGATIVE (Negative) Influenza Type B (PCR) NEGATIVE (Negative) RSV RNA Qual (PCR) NEGATIVE (Negative) SARS-CoV-2 RNA (RT-PCR) NEGATIVE (Negative) Independent Interpretation I performed an independent interpretation of an: EKG Interpretation: My interpretation patient's 12 EKG done at 13:18 hours is as follows: Normal sinus rhythm rate of 79, normal OR interval, QRS duration and QTC interval, no ST segment elevation, no ST segment depression, patient was inverted T-waves in lead 3 and V1, no PACs, no PVCs. Radiology Impression Discussion of test interpretation with radiology: I have reviewed the radiologist's reading. Radiologist Impression: XR chest 1V IMPRESSION: No acute disease. No change. Electronically signed by: David Garcia MD 05/29/2024 03:08 PM Chronic Conditions Patient?s care impacted by: Hypertension Critical Care Time Critical Care Time Critical Care Time: Yes Total Critical Care Time: 50 Attestation: Critical Care: The patient was critically ill with a high probability of imminent or life threatening deterioration. I spent greater than 30 minutes of discontinuous time evaluating the patient,delivering critical care at the bedside, discussing and evaluating pertinent data with consultants. Critical care time does not include time spent performing separately billable procedures or teaching. Total time spent performing critical care was 50 minutes. Discharge Plan Discharge Clinical Impression: Pneumonia Qualifiers: Laterality: bilateral Lung location: lower lobe of lung Patient Disposition: Admitted As Inpatient Print Language: Mohawk
--- NOTE | 2024-05-29 12:44 | ECG_ITS ---
Test Reason : SOB Blood Pressure : / mmHG Vent. Rate : 079 BPM Atrial Rate : 079 BPM P-R Int : 166 ms QRS Dur : 078 ms QT Int : 406 ms P-R-T Axes : 054 -24 014 degrees QTc Int : 465 ms Normal sinus rhythm Nonspecific ST and T wave abnormality Abnormal ECG When compared with ECG of 19-DEC-2021 01:30, Vent. rate has decreased BY 71 BPM Questionable change in QRS duration Referred By: Holli Cook Electronically Signed By:HERMES GUO
[2024-05-29 12:59] VITALS: BP 132/61; PULSE 85; RESP 24; TEMP 36.6; O2SAT 80; BMI 37.0
[2024-05-29 13:22] LABS: MANUAL DIFF FLAG NO
[2024-05-29 13:27] LABS: Basophils Percent Auto 0.4 % (0-2); Hematocrit 34.5 % (37.0-47.0); Hemoglobin 11.1 g/dl (12.0-16.0); Imm Gran Abs Auto 0.08 X10*3/uL (0.00-0.03); Imm Gran Pct Auto 0.8 % (0.0-0.4); Lymphocytes Absolute Auto 1.5 X10*3/uL (1.2-4.9); Lymphocytes Percent Auto 15.7 % (20-40); Mean Corpuscular HGB Conc 32.2 g/dl (31.0-35.0); Mean Corpuscular Hemoglobin 29.6 pg (27.0-33.0); Mean Platelet Volume 9.5 fL (9.4-12.3); Monocytes Absolute Auto 0.5 X10*3/uL (0.1-1.2); Monocytes Percent Auto 5.2 % (2-11); Neutrophils Absolute Auto 7.4 x10*3/uL (2.0-8.3); Neutrophils Percent Auto 77.9 % (45-73); Platelet Count 255 X10*3/uL (160-400); Red Blood Count 3.75 X10*6/uL (4.20-5.50); Red Cell Distribution Width 14.5 % (11.0-16.0); White Blood Count 9.5 X10*3/uL (4.8-10.8)
[2024-05-29 13:35] LABS: INTERNATIONAL NORM RATIO 0.9 (0.9-1.1); Prothrombin Time 10.8 SEC (10.9-12.4)
[2024-05-29 13:38] LABS: Partial Thromboplastin Time 28.6 SEC (26.0-36.8)
[2024-05-29 13:50] LABS: B Type Natriuretic Peptide 120 pg/mL (<100)
[2024-05-29 13:56] LABS: Troponin-I High Sensitivity 4.7 ng/L (<3.5-17.0)
[2024-05-29 14:06] LABS: Lactic Acid 3.7 mmol/L (0.5-2.0)
[2024-05-29 14:15] LABS: Influenza A PCR NEGATIVE (Negative); Influenza B PCR NEGATIVE (Negative); Resp Syncy Virus RNA Qual PCR NEGATIVE (Negative); SARS COV2 PCR INHOUSE NEGATIVE (Negative)
[2024-05-29 15:00] VITALS: BP 126/70; PULSE 76; RESP 14; TEMP 36.7; O2SAT 97
[2024-05-29 15:21] LABS: Reflex Lactate? Lactic Acid Added
[2024-05-29 15:33] VITALS: PULSE 72; RESP 13; O2SAT 93
[2024-05-29] MEDS: Albuterol Sulfate 2.5 MG, Albuterol/Iprat 2.5/0.5MG 3 ML 3 ML INHALE (15:33)
[2024-05-29] MEDS: methylPREDNISolone Sod Succ 125 MG/2 ML VIAL IVPUSH (15:58)
[2024-05-29] MEDS: cefTRIAXone sodium 1 GM in 0.9 % Sodium Chloride 50 ML IV (15:58)
[2024-05-29] MEDS: Doxycycline Hyclate 100 MG in 0.9 % Sodium Chloride 250 ML 166.67 MG IV (15:58)
[2024-05-29] MEDS: 0.9 % Sodium Chloride 1,500 ML 1500 ML IV (15:59)
[2024-05-29 16:07] LABS: Alanine Aminotransferase 14 U/L (0-31); Albumin Level 3.5 g/dL (3.5-5.0); Alkaline Phosphatase 86 U/L (39-117); Anion Gap 15 (12-20); Aspartate Amino Transferase 15 U/L (5-31); Bilirubin Total 0.3 mg/dL (0.0-1.0); Blood Urea Nitrogen 29 mg/dL (9-16); Calcium 9.1 mg/dL (8.4-10.2); Carbon Dioxide 23 mmol/L (22-29); Chloride 106 mmol/L (96-108); Creatinine Clr Calc Pharmacy 47.9; Estimated Glomerular Filt Rate 50; Glucose Random 70 mg/dL (60-115); Magnesium 1.7 mg/dL (1.6-2.6); Potassium 5.3 mmol/L (3.3-5.1); Sodium 139 mmol/L (135-145); Total Protein 5.9 g/dL (6.5-8.0)
[2024-05-29 16:18] LABS: ~Lactic Acid-LAB USE ONLY 3.2 mmol/L (0.5-2.0)
--- NOTE | 2024-05-29 16:19 | PM.IMHP ---
History of Present Illness Date of Service: 05/29/24 Chief Complaint: Shortness of breath 74 year old women presenting to the ER with SOB. She has hx of chronic lung disease and has felt like she has been SOB and has not recuperated since her last respiratory illness 1 week ago where she was given azithromycin for 7 days and and nebulization treatments. She was walking from her apartment to her truck and was severely winded so she came to the ER for further evaluation. She stated that she has been feeling unwell for he last three months. She denied fever, chills, nausea, vomiting, diarrhea, recent echocardiogram in December which showed basal inferior and inferior lateral ischemia with EF of 53%. Her lactic acid was elevated at 3.7, BNP 120, oxygen saturation 80%. He was given a dose of ceftriaxone, doxycycline, Solu-Medrol, albuterol while in the ER. He will be admitted for further management and treatment of acute hypoxic respiratory failure secondary to COPD/asthma exacerbation. Review of Systems Review of Systems: Denies any recent fever chills or decrease in appetite respiratory denies any shortness of breath or cough cardiovascular denied chest pain gastrointestinal denies any dysphagia abdominal pain nausea vomiting or diarrhea genitourinary denies any dysuria frequency or hematuria musculoskeletal denies any joint pain or swelling neuropsych denies any weakness or seizures all other systems reviewed are negative [facility] Medical History MRSA (methicillin resistant Staphylococcus aureus) Anxiety and depression History of blood transfusion Myocardial infarct Diarrhea Arthritis Diabetes GERD (gastroesophageal reflux disease) Coronary artery disease Family History Father Colon cancer Surgical History Hx of colonoscopy Hx of tonsillectomy Hx of cholecystectomy H/O: hysterectomy History of total right knee replacement (TKR) History of cardiac catheterization Social History Household Members: None Housing: Apartment Are you a primary post anesthesia care unit nurse to a significant other at home: No Do you presently have visiting nurse or other home services: Yes Unable to assess alcohol history related to: Unable to respond Alcohol intake: unknown Patient Tobacco Use Status: Former Tobacco user Tobacco use type: Cigarette Years Smoked: 40 Smoked in Last 30 Days: No Second Hand Smoke Exposure: No Use of substances other than those prescribed or required for medical reasons: No Currently Displaying Signs/Symptoms of Drug Intoxication Withdrawal: No Any prior treatment program specific to substance use: No Have you been hit, kicked, punched, or otherwise hurt by someone within the past year? If so, by whom?: No Do you feel safe in your current relationship?: No Current Relationship Is there a partner from a previous relationship who is making you feel unsafe now?: No Are you made to feel afraid or neglected: No Advance Directives: Yes Advance Directives on File: Yes Advance Directives Date on File: 12/25/21 Do you have a plan to hurt others: No Plan Recently lost weight without trying: No How much weight loss: Unsure Eating poorly because of decreased appetite: No Nutrition screen score: 2 Nutrition Risks: No Nutritional Risk Patient : No : No Poor oral hygiene: No service: No Current occupational status: retired Meds Allergies Allergy/AdvReac Type Severity Reaction Status Date / Time amoxicillin Allergy Difficulty Verified 05/29/24 13:02 Breathing levofloxacin [From Levaquin] AdvReac Intermediate Muscle Pain Verified 05/29/24 13:02 Pain Med Sensitivity Allergy Unknown none Uncoded 03/11/22 15:13 Active Medications: Current Medications Doxycycline Hyclate 100 mg/ (Sodium Chloride) 250 mls @ 166.67 mls/hr IV ONCE ONE Stop: 05/29/24 16:39 Last Admin: 05/29/24 15:58 Dose: 166.67 mls/hr Home Medications ?Medication ?Instructions ?Recorded ?Confirmed ?Last Taken ?Type cyanocobalamin (vitamin B-12) 1 tab PO DAILY 08/12/20 05/29/24 05/29/24 12:00 History 1,000 mcg tablet ferrous sulfate 325 mg (65 mg 1 tab PO BID 08/12/20 05/29/24 05/29/24 12:00 History iron) tablet nitroglycerin 0.4 mg sublingual 1 tab sublingual NEEDED PRN 08/12/20 05/29/24 Unknown History tablet Chest Pain oxybutynin chloride 10 mg 1 tab PO DAILY@1200 08/12/20 05/29/24 05/29/24 12:00 History tablet,extended release 24 hr sertraline 50 mg tablet 1 tab PO BEDTIME 08/12/20 05/29/24 05/29/24 12:00 History trazodone 50 mg tablet 1 tab PO BEDTIME 08/12/20 05/29/24 05/29/24 12:00 History glipizide 5 mg tablet 5 mg PO DAILY 09/30/21 05/29/24 05/29/24 12:00 History calcium carbonate 1 tab PO DAILY 10/31/21 05/29/24 05/29/24 12:00 History tramadol 50 mg tablet 50 mg PO Q12H PRN severe pain 02/10/22 05/29/24 Unknown History aspirin 81 mg tablet,delayed 81 mg PO DAILY 03/11/22 05/29/24 05/29/24 12:00 History release atorvastatin 80 mg tablet 80 mg PO BEDTIME 04/06/24 05/29/24 05/29/24 12:00 History metformin 1,000 mg tablet 1,000 mg PO BID 04/06/24 05/29/24 05/29/24 12:00 History pantoprazole 40 mg tablet,delayed 40 mg PO BID 04/06/24 05/29/24 05/29/24 12:00 History release ergocalciferol (vitamin D2) 1,250 1,250 mcg PO [place] 05/29/24 05/29/24 05/28/24 History mcg (50,000 unit) capsule magnesium oxide 400 mg (241.3 mg 400 mg PO BID 05/29/24 05/29/24 05/29/24 12:00 History magnesium) tablet Physical Exam Vital Signs and Narrative: Vital Signs: Last Vital Signs Temp 98.1 F 05/29/24 15:00 Pulse 72 05/29/24 15:33 Resp 13 05/29/24 15:33 BP 126/70 05/29/24 15:00 Pulse Ox 97 05/29/24 15:00 O2 Del Method Room Air 05/29/24 12:59 BMI result Body Mass Index 37.0 Appearing in no acute distress head is normocephalic atraumatic eyes pupils are PERRLA sclera is anicteric mouth throat mucous membranes are intact and moist neck is supple no lymphadenopathy, no JVD noted lung sounds are clear to auscultation heart regular rate rhythm, clear S1, S2 positive bowel sounds, abdomen is soft, nontender neuro patient is alert x3, no focal deficits Results Labs 05/30/24 05:50 05/30/24 05:50 Labs: Laboratory Results - last 24 hr 05/29/24 05/29/24 13:08 15:39 MCV 92.0 MCH 29.6 MCHC 32.2 RDW 14.5 Plt Count 255 MPV 9.5 Immature Gran % (Auto) 0.8 H Neut % (Auto) 77.9 H Lymph % (Auto) 15.7 L [place] % (Auto) 5.2 Eos % (Auto) 0.0 Baso % (Auto) 0.4 Lymph # (Auto) 1.5 [place] # (Auto) 0.5 Eos # (Auto) 0.0 Baso # (Auto) 0.0 Abs Immat Gran (auto) 0.08 H Absolute Neuts (auto) 7.4 Absolute Nucleated RBC 0.000 Nucleated RBC % (auto) 0.0 PT 10.8 L INR 0.9 APTT 28.6 Anion Gap 15 Estim Creat Clear Calc 47.9 Estimated GFR 50 Random Glucose 70 Lactic Acid 3.7 H* Lactic Acid F/U @ 2Hr 3.2 H* Calcium 9.1 Magnesium 1.7 Total Bilirubin 0.3 AST 15 ALT 14 Alkaline Phosphatase 86 Troponin I High Sens 4.7 B-Natriuretic Peptide 120 H Total Protein 5.9 L Albumin 3.5 Influenza Type A (PCR) NEGATIVE Influenza Type B (PCR) NEGATIVE RSV RNA Qual (PCR) NEGATIVE SARS-CoV-2 RNA (RT-PCR) NEGATIVE Imaging Radiologist's Impressions: Impressions Chest X-Ray 05/29/24 13:10 IMPRESSION: No acute disease. No change. Electronically signed by: David Garcia MD 05/29/2024 03:08 PM EDT Assessment and Plan (1) Pneumonia: Qualifiers: Laterality: bilateral Lung location: lower lobe of lung Status: Acute Plan 74-year-old woman admitted with acute hypoxic respiratory failure secondary to pneumonia Acute hypoxic respiratory failure secondary to asthma/COPD overlap syndrome Oxygen therapy for oxygen saturations greater than 90% Treat for clinical pneumonia with Rocephin and doxycycline Steroids, DuoNebs Chest x-ray not showing any obvious consolidation or effusion Hyperkalemia Mild Follow BMP Diabetes mellitus type 2 Sliding scale, ADA diet Coronary artery disease Continue aspirin and statin Mental health Continue home medications GERD Continue PPI Obesity class 2. BMI 37.0 Discussed importance of weight management as this may be contributing to worsening of other comorbidities DVT prophylaxis heparin Full code Quality Stroke Does the patient have a stroke diagnosis?: No VTE Prior VTE?: No VTE Risk Level:: Medical - moderate - high VTE Device Contraindication: Treatment Not Indicated VTE Drug Contraindication: N/A - Med Ordered
[2024-05-29 17:41] LABS: Reflex Lactate? 2 Y
[2024-05-29 18:21] LABS: Appearance Urine Clear; Color Urine Yellow; Glucose Urine UA Negative (Negative); Leukocyte Esterase Urine Moderate (2+) (Negative); Nitrite Urine Positive (Negative); Specific Gravity - Urine 1.015 (1.005-1.025); UMIC TRIGGER UACC YES; Urine Blood Negative (Negative); Urine Ketones Negative (Negative); Urine Protein Negative (Neg-Trace)
[2024-05-29 18:33] LABS: Bacteria Urine 4+ (None Seen); Hyaline Casts Urine 0-2 /LPF (0-2); RBC Urine 0-2 /HPF (0-2); Squamous Epithelial Cell Urine 0-2 /HPF (0-2); UACC Culture Trigger YES; WBC Urine 21-50 /HPF (0-5)
[2024-05-29 18:41] LABS: ~Lactic Acid-LAB USE ONLY 6.2 mmol/L (0.5-2.0)
--- NOTE | 2024-05-29 18:58 | PHA.MEDREC ---
Addendum entered by [facility] 05/29/24 19:49: MED REC CHECKED BY [facility] Original Note: Pharmacy Consult ? Medication Reconciliation Pharmacy has completed the medication reconciliation. Confirmed medications with patient. Patient confirmed she finished the Azithromycin 250mg tab this morning. She confirmed her Vitamin B-12 once a week on Sundays and she states she took it this past Wednesday. She also confirmed her Repatha injection once every 2 weeks and she stats she took it last 1 week ago yesterday (May 21) and if needed she can bring in Repatha. The pateint states she took her medications last today at 1200.
[2024-05-29 19:22] VITALS: BP 125/55; PULSE 82; RESP 18; O2SAT 95
[2024-05-29 20:43] VITALS: BP 131/58; PULSE 80; RESP 16; TEMP 36.6; O2SAT 91
[2024-05-29 20:52] LABS: Glucose, Whole Blood 204 mg/dL (60-115)
[2024-05-29] MEDS: Insulin Lispro 100 UNIT/ML 3 ML VIAL SUBCUT (22:09)
[2024-05-29] MEDS: 0.9 % Sodium Chloride Flush 3 ML SYRINGE IVFLUSH (22:11)
[2024-05-30] VITALS (10 sets, daily range): BP systolic 108–135; BP diastolic 56–68; PULSE 69–88; RESP 12–20; TEMP 36.2–36.4; O2SAT 92–95
[2024-05-30] MEDS: Sertraline HCL 50 MG TABLET PO ×2 (00:03→21:38)
[2024-05-30] MEDS: traZODone HCL 50 MG TABLET PO ×2 (00:03→21:39)
[2024-05-30] MEDS: Atorvastatin Calcium 80 MG TABLET PO (00:03)
[2024-05-30 06:19] LABS: MANUAL DIFF FLAG NO
[2024-05-30 06:52] LABS: Basophils Percent Auto 0.2 % (0-2); Hematocrit 32.2 % (37.0-47.0); Hemoglobin 10.3 g/dl (12.0-16.0); Imm Gran Abs Auto 0.11 X10*3/uL (0.00-0.03); Imm Gran Pct Auto 1.3 % (0.0-0.4); Lymphocytes Absolute Auto 0.7 X10*3/uL (1.2-4.9); Lymphocytes Percent Auto 7.5 % (20-40); Mean Corpuscular Hemoglobin 29.5 pg (27.0-33.0); Mean Corpuscular Volume 92.3 fL (80.0-98.0); Mean Platelet Volume 9.5 fL (9.4-12.3); Monocytes Absolute Auto 0.3 X10*3/uL (0.1-1.2); Monocytes Percent Auto 3.6 % (2-11); Neutrophils Absolute Auto 7.7 x10*3/uL (2.0-8.3); Neutrophils Percent Auto 87.4 % (45-73); Platelet Count 244 X10*3/uL (160-400); Red Blood Count 3.49 X10*6/uL (4.20-5.50); Red Cell Distribution Width 14.5 % (11.0-16.0); White Blood Count 8.8 X10*3/uL (4.8-10.8)
[2024-05-30 07:02] LABS: Alanine Aminotransferase 14 U/L (0-31); Albumin Level 3.3 g/dL (3.5-5.0); Alkaline Phosphatase 79 U/L (39-117); Anion Gap 13 (12-20); Aspartate Amino Transferase 13 U/L (5-31); Bilirubin Total 0.1 mg/dL (0.0-1.0); Blood Urea Nitrogen 23 mg/dL (9-16); Calcium 9.1 mg/dL (8.4-10.2); Carbon Dioxide 20 mmol/L (22-29); Chloride 109 mmol/L (96-108); Creatinine Clr Calc Pharmacy 51.7; Estimated Glomerular Filt Rate 55; Glucose Random 196 mg/dL (60-115); Potassium 5.3 mmol/L (3.3-5.1); Sodium 137 mmol/L (135-145); Total Protein 5.7 g/dL (6.5-8.0)
[2024-05-30 07:51] LABS: Glucose, Whole Blood 153 mg/dL (60-115)
--- NOTE | 2024-05-30 08:22 | MHC.CM.PN ---
CM met with Patient at bedside and addressed IMM with her, providing Patient with the original and a copy has been placed on the chart.Patient lives alone in an apartment, uses a walker to assist with mobility, and has a 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 Patient's Daughter/HCP/Adali will transport to home and PCP is Dr. Estrella Brunner.
[2024-05-30] MEDS: predniSONE 20 MG TABLET 40 MG PO (08:23)
[2024-05-30] MEDS: Doxycycline Hyclate 100 MG in 0.9 % Sodium Chloride 250 ML 166.67 MG IV ×2 (08:24→21:39)
[2024-05-30] MEDS: 0.9 % Sodium Chloride Flush 3 ML SYRINGE IVFLUSH ×3 (08:25→21:39)
[2024-05-30] MEDS: Insulin Lispro 100 UNIT/ML 3 ML VIAL SUBCUT ×3 (08:25→21:52)
[2024-05-30] MEDS: Isosorbide Mononitrate 30 MG TAB.ER.24H PO (09:33)
[2024-05-30] MEDS: Ferrous Sulfate 324 MG TABLET.DR PO ×2 (09:33→21:39)
[2024-05-30] MEDS: Heparin Sodium,Porcine 5,000 UNIT/ML VIAL 5000 UNIT SUBCUT ×2 (09:33→21:38)
[2024-05-30] MEDS: Metoprolol Succinate ER 25 MG TAB.ER.24H PO (09:33)
[2024-05-30] MEDS: Ezetimibe 10 MG TABLET PO (09:33)
[2024-05-30] MEDS: Aspirin Enteric Coated 81 MG TABLET.DR PO (09:33)
[2024-05-30] MEDS: Cyanocobalamin (Vitamin B-12) 1,000 MCG TABLET 1000 MCG PO (09:33)
[2024-05-30] MEDS: Calcium Oyster Shell Elemental 500 MG TABLET PO (09:33)
--- NOTE | 2024-05-30 10:56 | P.PNIM_ITS ---
Subjective Subjective Date of Service: 05/30/24 Physical Exam 2 Vital Signs: Vital Signs: Last Vital Signs Temp 97.1 F 05/30/24 08:00 Pulse 80 05/30/24 08:00 Resp 20 05/30/24 08:00 BP 112/57 L 05/30/24 08:00 Pulse Ox 94 05/30/24 08:00 O2 Del Method Nasal Cannula 05/30/24 08:00 O2 Flow Rate 2 05/30/24 08:00 BMI result Body Mass Index 37.0 Objective Data Active Medications Acetaminophen (Acetaminophen 325 Mg Tablet) 650 mg PO Q6H PRN PRN Reason: Pain, Mild (Pain Scale 1-3), fever or headache Albuterol/Ipratropium (Albuterol/Iprat 2.5/0.5mg 3 Ml Ampul.Neb) 3 ml INHALE RQ4H WHILE AWAKE [facility] Aspirin (Aspirin Enteric Coated 81 Mg Tablet.) 81 mg PO DAILY [facility] Last Admin: 05/30/24 09:33 Dose: 81 mg Documented By: WALTER Calcium Carbonate (Calcium Carbonate 750 Mg Tab.Chew) 750 mg PO Q4H PRN PRN Reason: Heartburn Calcium Carbonate (Calcium Oyster Shell Elemental 500 Mg Tablet) 500 mg PO DAILY [facility] Last Admin: 05/30/24 09:33 Dose: 500 mg Documented By: WALTER Cyanocobalamin (Cyanocobalamin (Vitamin B-12) 1,000 Mcg Tablet) 1,000 mcg PO DAILY [facility] Last Admin: 05/30/24 09:33 Dose: 1,000 mcg Documented By: WALTER Ezetimibe (Ezetimibe 10 Mg Tablet) 10 mg PO DAILY [facility] Last Admin: 05/30/24 09:33 Dose: 10 mg Documented By: WALTER Ergocalciferol (Ergocalciferol (Vitamin D2) 1,250 Mcg Capsule) 1,250 mcg PO [place] [facility] Ferrous Sulfate (Ferrous Sulfate 324 Mg Tablet.) 324 mg PO BID [facility] Last Admin: 05/30/24 09:33 Dose: 324 mg Documented By: WALTER Glucose (Glucose Gel 15 Gm Gel..Gram.) 15 gm PO Q15M PRN; Protocol PRN Reason: per Hypoglycemia Standing Ord. Heparin Sodium (Porcine) (Heparin Sodium,Porcine 5,000 Unit/Ml Vial) 5,000 unit SUBCUT Q12H [facility] Last Admin: 05/30/24 09:33 Dose: 5,000 unit Documented By: WALTER Dextrose (D10) 250 mls @ 750 mls/hr IV Q15M PRN; Protocol PRN Reason: per Hypoglycemia Standing Ord. Ceftriaxone Sodium 1 gm/ (Sodium Chloride) 50 mls @ 100 mls/hr IV Q24H [facility] Doxycycline Hyclate 100 mg/ (Sodium Chloride) 250 mls @ 166.67 mls/hr IV BID [facility] Last Infusion: 05/30/24 10:14 Dose: Infused Documented By: WALTER Insulin Human Lispro (Insulin Lispro 100 Unit/Ml 3 Ml Vial) 0 unit SUBCUT QIDACHS [facility]; Protocol Last Admin: 05/30/24 08:25 Dose: 2 unit Documented By: WALTER Isosorbide Mononitrate (Isosorbide Mononitrate 30 Mg Tab.Er.24h) 30 mg PO DAILY [facility]; Protocol Last Admin: 05/30/24 09:33 Dose: 30 mg Documented By: WALTER Magnesium Hydroxide (Milk Of Magnesia 30 Ml Oral.Susp) 30 ml PO DAILY PRN PRN Reason: Constipation Melatonin (Melatonin 3 Mg Tablet) 6 mg PO BEDTIME PRN PRN Reason: Insomnia Metoprolol Succinate (Metoprolol Succinate Er 25 Mg Tab.Er.24h) 25 mg PO DAILY [facility]; Protocol Last Admin: 05/30/24 09:33 Dose: 25 mg Documented By: WALTER Nitroglycerin (Nitroglycerin 0.4 Mg Tab.Subl) 0.4 mg SUBLINGUAL Q5M PRN PRN Reason: Chest Pain Oxybutynin Chloride (Oxybutynin Chloride Er 5 Mg Tab.Er.24) 10 mg PO DAILY@1200 [facility] Prednisone (Prednisone 20 Mg Tablet) 40 mg PO DAILY [facility] Last Admin: 05/30/24 08:23 Dose: 40 mg Documented By: WALTER Sertraline HCl (Sertraline Hcl 50 Mg Tablet) 50 mg PO BEDTIME [facility] Sodium Chloride (0.9 % Sodium Chloride Flush 3 Ml Syringe) 3 ml IVFLUSH QSHIFT [facility] Last Admin: 05/30/24 08:25 Dose: 3 ml Documented By: WALTER Tramadol HCl (Tramadol Hcl 50 Mg Tablet) 50 mg PO Q12H PRN PRN Reason: severe pain Trazodone HCl (Trazodone Hcl 50 Mg Tablet) 50 mg PO BEDTIME [facility] Labs 05/30/24 05:50 05/30/24 05:50 Labs: Laboratory Results - last 24 hr 05/29/24 05/29/24 05/29/24 13:08 15:39 18:03 MCV 92.0 MCH 29.6 MCHC 32.2 RDW 14.5 Plt Count 255 MPV 9.5 Immature Gran % (Auto) 0.8 H Neut % (Auto) 77.9 H Lymph % (Auto) 15.7 L [place] % (Auto) 5.2 Eos % (Auto) 0.0 Baso % (Auto) 0.4 Lymph # (Auto) 1.5 [place] # (Auto) 0.5 Eos # (Auto) 0.0 Baso # (Auto) 0.0 Abs Immat Gran (auto) 0.08 H Absolute Neuts (auto) 7.4 Absolute Nucleated RBC 0.000 Nucleated RBC % (auto) 0.0 PT 10.8 L INR 0.9 APTT 28.6 Anion Gap 15 Estim Creat Clear Calc 47.9 Estimated GFR 50 POC Glucose Random Glucose 70 Lactic Acid 3.7 H* Lactic Acid F/U @ 2Hr 3.2 H* Lactic Acid F/U @ 4Hr 6.2 H* Calcium 9.1 Magnesium 1.7 Total Bilirubin 0.3 AST 15 ALT 14 Alkaline Phosphatase 86 Troponin I High Sens 4.7 B-Natriuretic Peptide 120 H Total Protein 5.9 L Albumin 3.5 Urine Color Urine Appearance Urine pH Ur Specific [place] Urine Protein Urine Glucose (UA) Urine Ketones Urine Blood Urine Nitrite Ur Leukocyte Esterase Urine RBC Urine WBC Ur Squamous Epith Cells Urine Bacteria Hyaline Casts Influenza Type A (PCR) NEGATIVE Influenza Type B (PCR) NEGATIVE RSV RNA Qual (PCR) NEGATIVE SARS-CoV-2 RNA (RT-PCR) NEGATIVE 05/29/24 05/29/24 05/30/24 18:13 20:40 05:50 MCV 92.3 MCH 29.5 MCHC 32.0 RDW 14.5 Plt Count 244 MPV 9.5 Immature Gran % (Auto) 1.3 H Neut % (Auto) 87.4 H Lymph % (Auto) 7.5 L [place] % (Auto) 3.6 Eos % (Auto) 0.0 Baso % (Auto) 0.2 Lymph # (Auto) 0.7 L [place] # (Auto) 0.3 Eos # (Auto) 0.0 Baso # (Auto) 0.0 Abs Immat Gran (auto) 0.11 H Absolute Neuts (auto) 7.7 Absolute Nucleated RBC 0.000 Nucleated RBC % (auto) 0.0 PT INR APTT Anion Gap 13 Estim Creat Clear Calc 51.7 Estimated GFR 55 POC Glucose 204 H Random Glucose 196 H Lactic Acid Lactic Acid F/U @ 2Hr Lactic Acid F/U @ 4Hr Calcium 9.1 Magnesium Total Bilirubin 0.1 AST 13 ALT 14 Alkaline Phosphatase 79 Troponin I High Sens B-Natriuretic Peptide Total Protein 5.7 L Albumin 3.3 L Urine Color Yellow Urine Appearance Clear Urine pH 5.0 Ur Specific [place] 1.015 Urine Protein Negative Urine Glucose (UA) Negative Urine Ketones Negative Urine Blood Negative Urine Nitrite Positive H Ur Leukocyte Esterase Moderate (2+) H Urine RBC 0-2 Urine WBC 21-50 H Ur Squamous Epith Cells 0-2 Urine Bacteria 4+ Hyaline Casts 0-2 Influenza Type A (PCR) Influenza Type B (PCR) RSV RNA Qual (PCR) SARS-CoV-2 RNA (RT-PCR) 05/30/24 07:16 MCV MCH MCHC RDW Plt Count MPV Immature Gran % (Auto) Neut % (Auto) Lymph % (Auto) [place] % (Auto) Eos % (Auto) Baso % (Auto) Lymph # (Auto) [place] # (Auto) Eos # (Auto) Baso # (Auto) Abs Immat Gran (auto) Absolute Neuts (auto) Absolute Nucleated RBC Nucleated RBC % (auto) PT INR APTT Anion Gap Estim Creat Clear Calc Estimated GFR POC Glucose 153 H Random Glucose Lactic Acid Lactic Acid F/U @ 2Hr Lactic Acid F/U @ 4Hr Calcium Magnesium Total Bilirubin AST ALT Alkaline Phosphatase Troponin I High Sens B-Natriuretic Peptide Total Protein Albumin Urine Color Urine Appearance Urine pH Ur Specific [place] Urine Protein Urine Glucose (UA) Urine Ketones Urine Blood Urine Nitrite Ur Leukocyte Esterase Urine RBC Urine WBC Ur Squamous Epith Cells Urine Bacteria Hyaline Casts Influenza Type A (PCR) Influenza Type B (PCR) RSV RNA Qual (PCR) SARS-CoV-2 RNA (RT-PCR) Assessment and Plan (1) Pneumonia: Status: Acute Plan 74-year-old woman admitted with acute hypoxic respiratory failure secondary to pneumonia Acute hypoxic respiratory failure secondary to asthma/COPD overlap syndrome Oxygen therapy for oxygen saturations greater than 90% Treat for clinical pneumonia with Rocephin and doxycycline Steroids, DuoNebs Chest x-ray not showing any obvious consolidation or effusion chest CT pending pulmonary consultation pending Hyperkalemia Mild Follow BMP Diabetes mellitus type 2 Sliding scale, ADA diet Coronary artery disease Continue aspirin and statin Mental health Continue home medications GERD Continue PPI Obesity class 2. BMI 37.0 Discussed importance of weight management as this may be contributing to worsening of other comorbidities DVT prophylaxis heparin Attending Dr. Pineda Full code Quality Stroke Does the patient have a stroke diagnosis?: No VTE Prior VTE?: No VTE Risk Level:: Medical - moderate - high VTE Device Contraindication: Treatment Not Indicated VTE Drug Contraindication: N/A - Med Ordered
[2024-05-30] MEDS: Albuterol/Iprat 2.5/0.5MG 3 ML AMPUL.NEB INHALE ×3 (11:09→20:14)
[2024-05-30 11:16] LABS: Glucose, Whole Blood 133 mg/dL (60-115)
[2024-05-30] MEDS: oxyBUTYnin chloride ER 5 MG TAB.ER.24 10 MG PO (13:34)
[2024-05-30] MEDS: Sodium Zirconium Cyclosilicate 10 GM POWD.PACK PO (13:35)
[2024-05-30] MEDS: Acetaminophen 325 MG TABLET 650 MG PO (13:36)
--- NOTE | 2024-05-30 14:52 | P.CONPL_ITS ---
History of Present Illness History of Present Illness Consult date: 05/30/24 Chief complaint: Asthma/COPD Narrative: 74-year-old lady, former 40+ pack-year smoker, quit 2013, with prior admission to [facility] for heart failure exacerbation, acute kidney injury requiring brief ventilatory support, now admitted on 05/29/2024 with worsening dyspnea, but no cough or sputum production. CT chest with no evidence of infiltrates. Patient does have recent 2D echocardiogram showing increased right ventricular systolic pressures and vena cava distention. Review of Systems 2 Constitutional: Constitutional: Denies daytime sleepiness, Denies excessive sweating, Denies fatigue, Denies fever(s), Denies lethargy, Denies malaise, Denies night sweats, Denies snoring and Denies weight loss Eyes: Eyes: Denies blurry vision and Denies itchy eyes ENT: Denies nasal congestion, Denies post nasal drip, Denies sinus pain, Denies sinus pressure and Denies other ( Thrush) Cardiovascular: Cardiovascular: Denies chest pain, Denies pedal edema, Reports dyspnea, Reports dyspnea on exertion, Reports orthopnea and Denies paroxysmal nocturnal dyspnea Respiratory: Respiratory: Denies cough, Denies hemoptysis, Denies excessive phlegm production, Reports dyspnea, Reports dyspnea on exertion, Denies snoring and Denies wheezing Gastrointestinal: Gastrointestinal: Denies abdominal pain and Denies heartburn Musculoskeletal: Musculoskeletal: Denies myalgias, Denies arthralgias and Denies joint swelling Integumentary/Breasts: Skin/Breast: Denies rash Neurologic: Denies memory loss and Denies seizure-like activity Psychiatric: Psychiatric: Denies abnormal sleep pattern, Denies anxiety and Denies memory loss Endocrine: Endocrine: Denies excessive sweating, Denies fatigue and Denies heat intolerance Hematologic/Lymphatic: Hematologic/Lymphatic: Denies easy bruising Allergic/Immunologic: Allergic/Immunologic: Denies itchy eyes, Denies seasonal rhinorrhea and Denies wheezing PMFSH Past Medical History Medical History MRSA (methicillin resistant Staphylococcus aureus) Anxiety and depression History of blood transfusion Myocardial infarct Diarrhea Arthritis Diabetes GERD (gastroesophageal reflux disease) Coronary artery disease Family History Family History Father Colon cancer Surgical History Surgical History Hx of colonoscopy Hx of tonsillectomy Hx of cholecystectomy H/O: hysterectomy History of total right knee replacement (TKR) History of cardiac catheterization Social History Social History Household Members: None Housing: Apartment Are you a primary child daycare worker to a significant other at home: No Do you presently have visiting nurse or other home services: Yes Unable to assess alcohol history related to: Unable to respond Alcohol intake: unknown Patient Tobacco Use Status: Former Tobacco user Tobacco use type: Cigarette Years Smoked: 40 Smoked in Last 30 Days: No Second Hand Smoke Exposure: No Use of substances other than those prescribed or required for medical reasons: No Currently Displaying Signs/Symptoms of Drug Intoxication Withdrawal: No Any prior treatment program specific to substance use: No Have you been hit, kicked, punched, or otherwise hurt by someone within the past year? If so, by whom?: No Do you feel safe in your current relationship?: No Current Relationship Is there a partner from a previous relationship who is making you feel unsafe now?: No Are you made to feel afraid or neglected: No Advance Directives: Yes Advance Directives on File: Yes Advance Directives Date on File: 12/25/21 Do you have a plan to hurt others: No Plan Recently lost weight without trying: No How much weight loss: Unsure Eating poorly because of decreased appetite: No Nutrition screen score: 2 Nutrition Risks: No Nutritional Risk Patient : No : No Poor oral hygiene: No service: No Current occupational status: retired Meds Allergies Allergy/AdvReac Type Severity Reaction Status Date / Time amoxicillin Allergy Difficulty Verified 05/29/24 13:02 Breathing levofloxacin [From Levaquin] AdvReac Intermediate Muscle Pain Verified 05/29/24 13:02 Pain Med Sensitivity Allergy Unknown none Uncoded 03/11/22 15:13 Active Medications: Current Medications Acetaminophen (Acetaminophen 325 Mg Tablet) 650 mg PO Q6H PRN PRN Reason: Pain, Mild (Pain Scale 1-3), fever or headache Last Admin: 05/30/24 13:36 Dose: 650 mg Albuterol/Ipratropium (Albuterol/Iprat 2.5/0.5mg 3 Ml Ampul.Vito) 3 ml INHALE RQ4H WHILE AWAKE [facility] Last Admin: 05/30/24 11:09 Dose: 3 ml Aspirin (Aspirin Enteric Coated 81 Mg Tablet.) 81 mg PO DAILY [facility] Last Admin: 05/30/24 09:33 Dose: 81 mg Calcium Carbonate (Calcium Carbonate 750 Mg Tab.Chew) 750 mg PO Q4H PRN PRN Reason: Heartburn Calcium Carbonate (Calcium Oyster Shell Elemental 500 Mg Tablet) 500 mg PO DAILY [facility] Last Admin: 05/30/24 09:33 Dose: 500 mg Cyanocobalamin (Cyanocobalamin (Vitamin B-12) 1,000 Mcg Tablet) 1,000 mcg PO DAILY [facility] Last Admin: 05/30/24 09:33 Dose: 1,000 mcg Ezetimibe (Ezetimibe 10 Mg Tablet) 10 mg PO DAILY [facility] Last Admin: 05/30/24 09:33 Dose: 10 mg Ergocalciferol (Ergocalciferol (Vitamin D2) 1,250 Mcg Capsule) 1,250 mcg PO [facility] Ferrous Sulfate (Ferrous Sulfate 324 Mg Tablet.) 324 mg PO BID [facility] Last Admin: 05/30/24 09:33 Dose: 324 mg Furosemide (Furosemide 40 Mg/4 Ml Vial) 40 mg IVPUSH BID@0900,1800 [facility]; Protocol Glucose (Glucose Gel 15 Gm Gel..Gram.) 15 gm PO Q15M PRN; Protocol PRN Reason: per Hypoglycemia Standing Ord. Heparin Sodium (Porcine) (Heparin Sodium,Porcine 5,000 Unit/Ml Vial) 5,000 unit SUBCUT Q12H [facility] Last Admin: 05/30/24 09:33 Dose: 5,000 unit Dextrose (D10) 250 mls @ 750 mls/hr IV Q15M PRN; Protocol PRN Reason: per Hypoglycemia Standing Ord. Doxycycline Hyclate 100 mg/ (Sodium Chloride) 250 mls @ 166.67 mls/hr IV BID [facility] Last Infusion: 05/30/24 10:14 Dose: Infused Insulin Human Lispro (Insulin Lispro 100 Unit/Ml 3 Ml Vial) 0 unit SUBCUT QIDACHS [facility]; Protocol Last Admin: 05/30/24 13:43 Dose: Not Given Isosorbide Mononitrate (Isosorbide Mononitrate 30 Mg Tab.Er.24h) 30 mg PO DAILY [facility]; Protocol Last Admin: 05/30/24 09:33 Dose: 30 mg Magnesium Hydroxide (Milk Of Magnesia 30 Ml Oral.Susp) 30 ml PO DAILY PRN PRN Reason: Constipation Melatonin (Melatonin 3 Mg Tablet) 6 mg PO BEDTIME PRN PRN Reason: Insomnia Metoprolol Succinate (Metoprolol Succinate Er 25 Mg Tab.Er.24h) 25 mg PO DAILY [facility]; Protocol Last Admin: 05/30/24 09:33 Dose: 25 mg Nitroglycerin (Nitroglycerin 0.4 Mg Tab.Subl) 0.4 mg SUBLINGUAL Q5M PRN PRN Reason: Chest Pain Oxybutynin Chloride (Oxybutynin Chloride Er 5 Mg Tab.Er.24) 10 mg PO DAILY@1200 [facility] Last Admin: 05/30/24 13:34 Dose: 10 mg Prednisone (Prednisone 20 Mg Tablet) 40 mg PO DAILY [facility] Last Admin: 05/30/24 08:23 Dose: 40 mg Sertraline HCl (Sertraline Hcl 50 Mg Tablet) 50 mg PO BEDTIME [facility] Sodium Chloride (0.9 % Sodium Chloride Flush 3 Ml Syringe) 3 ml IVFLUSH QSHIFT [facility] Last Admin: 05/30/24 08:25 Dose: 3 ml Tramadol HCl (Tramadol Hcl 50 Mg Tablet) 50 mg PO Q12H PRN PRN Reason: severe pain Trazodone HCl (Trazodone Hcl 50 Mg Tablet) 50 mg PO BEDTIME [facility] Home Medications ?Medication ?Instructions ?Recorded ?Confirmed ?Last Taken ?Type cyanocobalamin (vitamin B-12) 1 tab PO DAILY 08/12/20 05/29/24 05/29/24 12:00 History 1,000 mcg tablet ferrous sulfate 325 mg (65 mg 1 tab PO BID 08/12/20 05/29/24 05/29/24 12:00 History iron) tablet nitroglycerin 0.4 mg sublingual 1 tab sublingual NEEDED PRN 08/12/20 05/29/24 Unknown History tablet Chest Pain oxybutynin chloride 10 mg 1 tab PO DAILY@1200 08/12/20 05/29/24 05/29/24 12:00 History tablet,extended release 24 hr sertraline 50 mg tablet 1 tab PO BEDTIME 08/12/20 05/29/24 05/29/24 12:00 History trazodone 50 mg tablet 1 tab PO BEDTIME 08/12/20 05/29/24 05/29/24 12:00 History glipizide 5 mg tablet 5 mg PO DAILY 09/30/21 05/29/24 05/29/24 12:00 History calcium carbonate 1 tab PO DAILY 10/31/21 05/29/24 05/29/24 12:00 History tramadol 50 mg tablet 50 mg PO Q12H PRN severe pain 02/10/22 05/29/24 Unknown History aspirin 81 mg tablet,delayed 81 mg PO DAILY 03/11/22 05/29/24 05/29/24 12:00 History release atorvastatin 80 mg tablet 80 mg PO BEDTIME 04/06/24 05/29/24 05/29/24 12:00 History metformin 1,000 mg tablet 1,000 mg PO BID 04/06/24 05/29/24 05/29/24 12:00 History pantoprazole 40 mg tablet,delayed 40 mg PO BID 04/06/24 05/29/24 05/29/24 12:00 History release ergocalciferol (vitamin D2) 1,250 1,250 mcg PO [place] 05/29/24 05/29/24 05/28/24 History mcg (50,000 unit) capsule magnesium oxide 400 mg (241.3 mg 400 mg PO BID 05/29/24 05/29/24 05/29/24 12:00 History magnesium) tablet Physical Exam 2 Vital Signs: Vital Signs: Last Vital Signs Temp 97.1 F 05/30/24 11:37 Pulse 71 05/30/24 11:37 Resp 20 05/30/24 11:37 BP 124/68 05/30/24 11:37 Pulse Ox 94 05/30/24 11:37 O2 Del Method Nasal Cannula 05/30/24 11:37 O2 Flow Rate 2 05/30/24 11:37 BMI result Body Mass Index 37.0 Const: General: no acute distress and alert Nutritional Appearance: obese Orientation/consciousness: Other orientation findings ( oriented) HEENT: Head: Yes atraumatic Eyes: General: appearance normal, both eyes and all related structures S clerae: sclerae normal EOM: EOMs intact bilaterally Neck: Neck: Yes supple Lymphatic: no lymphadenopathy noted Resp: Effort & Inspection: normal respiratory effort and no use of accessory muscles Auscultation: clear to auscultation bilaterally Cardio: Rate: regular rate Rhythm: regular rhythm Heart sounds: no gallops, no murmurs and no rubs Skin: General skin exam: other ( warm) Extrem: General: No clubbing, No cyanosis and Yes edema (Trace bilateral) Results Laboratory Findings 05/30/24 05:50 05/30/24 05:50 ABG, PT/INR, D-dimer: PT/INR, D-dimer PT 10.8 SEC (10.9-12.4) L 05/29/24 13:08 INR 0.9 (0.9-1.1) 05/29/24 13:08 Abnormal lab findings: Abnormal Labs 05/29/24 05/29/24 05/29/24 13:08 15:39 18:03 RBC 3.75 L Hgb 11.1 L Hct 34.5 L Immature Gran % (Auto) 0.8 H Neut % (Auto) 77.9 H Lymph % (Auto) 15.7 L Lymph # (Auto) Abs Immat Gran (auto) 0.08 H PT 10.8 L Potassium 5.3 H Chloride Carbon Dioxide BUN 29 H POC Glucose Random Glucose Lactic Acid 3.7 H* Lactic Acid F/U @ 2Hr 3.2 H* Lactic Acid F/U @ 4Hr 6.2 H* B-Natriuretic Peptide 120 H Total Protein 5.9 L Albumin Urine Nitrite Ur Leukocyte Esterase Urine WBC 05/29/24 05/29/24 05/30/24 18:13 20:40 05:50 RBC 3.49 L Hgb 10.3 L Hct 32.2 L Immature Gran % (Auto) 1.3 H Neut % (Auto) 87.4 H Lymph % (Auto) 7.5 L Lymph # (Auto) 0.7 L Abs Immat Gran (auto) 0.11 H PT Potassium 5.3 H Chloride 109 H Carbon Dioxide 20 L BUN 23 H POC Glucose 204 H Random Glucose 196 H Lactic Acid Lactic Acid F/U @ 2Hr Lactic Acid F/U @ 4Hr B-Natriuretic Peptide Total Protein 5.7 L Albumin 3.3 L Urine Nitrite Positive H Ur Leukocyte Esterase Moderate (2+) H Urine WBC 21-50 H 05/30/24 05/30/24 07:16 11:06 RBC Hgb Hct Immature Gran % (Auto) Neut % (Auto) Lymph % (Auto) Lymph # (Auto) Abs Immat Gran (auto) PT Potassium Chloride Carbon Dioxide BUN POC Glucose 153 H 133 H Random Glucose Lactic Acid Lactic Acid F/U @ 2Hr Lactic Acid F/U @ 4Hr B-Natriuretic Peptide Total Protein Albumin Urine Nitrite Ur Leukocyte Esterase Urine WBC Microbiology: Microbiology 05/29/24 Unknown Urine clean catch - Clean Catch Midstream Urine Culture - Preliminary Culture too young to evaluate. Assessment and Plan (1) Acute respiratory failure with hypoxia: Status: Acute (2) Acute exacerbation of congestive heart failure: Status: Acute (3) Asthma-COPD overlap syndrome: Status: Acute Plan Impression: 74-year-old lady with underlying asthma/COPD overlap syndrome and diastolic dysfunction admitted with worsening dyspnea and acute hypoxic respiratory failure secondary to what appears to be exacerbation of underlying chronic diastolic congestive heart failure. CT chest reviewed, no evidence of pulmonic process. Recent 2D echocardiogram with elevated RVSP and volume overload. Recommendations: Suggest diuresis for treatment acute exacerbation of underlying congestive heart failure. No evidence of acute COPD exacerbation or pneumonia. Consider discontinuation of empiric antibiotics and systemic glucocorticoids. Procedures Date of Service Date of Service: 05/30/24
[2024-05-30 17:05] LABS: Glucose, Whole Blood 238 mg/dL (60-115)
[2024-05-30] MEDS: Furosemide 40 MG/4 ML VIAL IVPUSH (17:09)
[2024-05-30] MEDS: traMADoL HCL 50 MG TABLET PO (17:09)
[2024-05-30 21:51] LABS: Glucose, Whole Blood 263 mg/dL (60-115)
[2024-05-31] VITALS (10 sets, daily range): BP systolic 99–130; BP diastolic 50–61; PULSE 65–86; RESP 16–20; TEMP 36.3–36.8; O2SAT 86–97
[2024-05-31 06:46] LABS: Anion Gap 13 (12-20); Blood Urea Nitrogen 32 mg/dL (9-16); Calcium 9.8 mg/dL (8.4-10.2); Carbon Dioxide 26 mmol/L (22-29); Chloride 104 mmol/L (96-108); Creatinine Clr Calc Pharmacy 38.2; Estimated Glomerular Filt Rate 39; Glucose Random 152 mg/dL (60-115); Potassium 4.2 mmol/L (3.3-5.1); Sodium 139 mmol/L (135-145)
[2024-05-31] MEDS: Albuterol/Iprat 2.5/0.5MG 3 ML AMPUL.NEB INHALE ×4 (07:10→19:10)
[2024-05-31 07:11] LABS: Glucose, Whole Blood 137 mg/dL (60-115)
[2024-05-31] MEDS: Ferrous Sulfate 324 MG TABLET.DR PO ×2 (08:44→21:41)
[2024-05-31] MEDS: Aspirin Enteric Coated 81 MG TABLET.DR PO (08:44)
[2024-05-31] MEDS: Ezetimibe 10 MG TABLET PO (08:44)
[2024-05-31] MEDS: Metoprolol Succinate ER 25 MG TAB.ER.24H PO (08:44)
[2024-05-31] MEDS: Calcium Oyster Shell Elemental 500 MG TABLET PO (08:44)
[2024-05-31] MEDS: Cyanocobalamin (Vitamin B-12) 1,000 MCG TABLET 1000 MCG PO (08:44)
[2024-05-31] MEDS: Isosorbide Mononitrate 30 MG TAB.ER.24H PO (08:44)
[2024-05-31] MEDS: Furosemide 40 MG/4 ML VIAL IVPUSH (08:45)
[2024-05-31] MEDS: Heparin Sodium,Porcine 5,000 UNIT/ML VIAL 5000 UNIT SUBCUT ×2 (08:45→21:41)
[2024-05-31] MEDS: 0.9 % Sodium Chloride Flush 3 ML SYRINGE IVFLUSH ×3 (08:45→23:34)
[2024-05-31] MEDS: Calcium Carbonate 750 MG TAB.CHEW PO ×2 (08:48→16:18)
--- NOTE | 2024-05-31 09:44 | P.CONCA_ITS ---
History of Present Illness History of Present Illness Date of Service: 05/31/24 Chief complaint: Asthma/COPD Narrative: This is a cardiology consultation regarding shortness of breath. Last seen in clinic by Rachael Paige few weeks back. History of COPD, hypertension and many comorbidities. Has coronary artery disease and history of LAD stent. Current hospitalization is because of increasing shortness of breath. She states that she is much more short of breath currently than in the past. Hence she is admitted. Pulmonology has seen her and they feel that it is more of a cardiac reason. Otherwise, patient has some coughing, shortness of breath but no angina. No leg swelling. Review of Systems 2 Review of Systems: Yes all other systems are reviewed and are negative Constitutional: Constitutional: Reports as per HPI and Reports no additional constitutional complaints Eyes: Eyes: Reports as per HPI and Denies no additional eye complaints ENT: Denies system reviewed and no additional complaints, except as documented and Reports as per HPI Cardiovascular: Cardiovascular: Reports as per HPI, Reports no additional cardiovascular complaints, Denies acrocyanosis, Denies cool extremities, Denies chest pain, Denies leg edema, Denies lightheadedness, Denies palpitations and Reports dyspnea Respiratory: Respiratory: Reports as per HPI, Denies no additional respiratory complaints, Reports cough and Reports dyspnea Gastrointestinal: Gastrointestinal: Reports as per HPI and Denies no additional gastrointestinal complaints Genitourinary: Genitourinary: Reports as per HPI Musculoskeletal: Musculoskeletal: Reports no additional musculoskeletal complaints and Reports as per HPI Integumentary/Breasts: Skin/Breast: Reports system reviewed and no additional complaints, except as docu Neurologic: Reports system reviewed and no additional complaints, except as documented and Reports as per HPI Psychiatric: Psychiatric: Reports no additional psychiatric complaints and Reports as per HPI Endocrine: Endocrine: Reports no additional endocrine complaints, Reports as per HPI and Denies palpitations Hematologic/Lymphatic: Hematologic/Lymphatic: Reports no additional hematologic/lymphatic complaints and Reports as per HPI Allergic/Immunologic: Allergic/Immunologic: Reports no additional allergic/immunologic complaints and Reports as per HPI [facility] Past Medical History Medical History MRSA (methicillin resistant Staphylococcus aureus) Anxiety and depression History of blood transfusion Myocardial infarct Diarrhea Arthritis Diabetes GERD (gastroesophageal reflux disease) Coronary artery disease Family History Family History Father Colon cancer Surgical History Surgical History Hx of colonoscopy Hx of tonsillectomy Hx of cholecystectomy H/O: hysterectomy History of total right knee replacement (TKR) History of cardiac catheterization Social History Social History Household Members: None Housing: Apartment Are you a primary professional healthcare representative to a significant other at home: No Do you presently have visiting nurse or other home services: Yes Unable to assess alcohol history related to: Unable to respond Alcohol intake: unknown Patient Tobacco Use Status: Former Tobacco user Tobacco use type: Cigarette Years Smoked: 40 Smoked in Last 30 Days: No Second Hand Smoke Exposure: No Use of substances other than those prescribed or required for medical reasons: No Currently Displaying Signs/Symptoms of Drug Intoxication Withdrawal: No Any prior treatment program specific to substance use: No Have you been hit, kicked, punched, or otherwise hurt by someone within the past year? If so, by whom?: No Do you feel safe in your current relationship?: No Current Relationship Is there a partner from a previous relationship who is making you feel unsafe now?: No Are you made to feel afraid or neglected: No Advance Directives: Yes Advance Directives on File: Yes Advance Directives Date on File: 12/25/21 Do you have a plan to hurt others: No Plan Recently lost weight without trying: No How much weight loss: Unsure Eating poorly because of decreased appetite: No Nutrition screen score: 2 Nutrition Risks: No Nutritional Risk Patient : No : No Poor oral hygiene: No service: No Current occupational status: retired Meds Allergies Allergy/AdvReac Type Severity Reaction Status Date / Time amoxicillin Allergy Difficulty Verified 05/29/24 13:02 Breathing levofloxacin [From Levaquin] AdvReac Intermediate Muscle Pain Verified 05/29/24 13:02 Pain Med Sensitivity Allergy Unknown none Uncoded 03/11/22 15:13 Active Medications: Current Medications Acetaminophen (Acetaminophen 325 Mg Tablet) 650 mg PO Q6H PRN PRN Reason: Pain, Mild (Pain Scale 1-3), fever or headache Last Admin: 05/30/24 13:36 Dose: 650 mg Albuterol/Ipratropium (Albuterol/Iprat 2.5/0.5mg 3 Ml Ampul.Vito) 3 ml INHALE RQ4H WHILE AWAKE [facility] Last Admin: 05/31/24 07:10 Dose: 3 ml Aspirin (Aspirin Enteric Coated 81 Mg Tablet.) 81 mg PO DAILY [facility] Last Admin: 05/31/24 08:44 Dose: 81 mg Calcium Carbonate (Calcium Carbonate 750 Mg Tab.Chew) 750 mg PO Q4H PRN PRN Reason: Heartburn Last Admin: 05/31/24 08:48 Dose: 750 mg Calcium Carbonate (Calcium Oyster Shell Elemental 500 Mg Tablet) 500 mg PO DAILY [facility] Last Admin: 05/31/24 08:44 Dose: 500 mg Cyanocobalamin (Cyanocobalamin (Vitamin B-12) 1,000 Mcg Tablet) 1,000 mcg PO DAILY [facility] Last Admin: 05/31/24 08:44 Dose: 1,000 mcg Ezetimibe (Ezetimibe 10 Mg Tablet) 10 mg PO DAILY [facility] Last Admin: 05/31/24 08:44 Dose: 10 mg Ergocalciferol (Ergocalciferol (Vitamin D2) 1,250 Mcg Capsule) 1,250 mcg PO [place] [facility] Ferrous Sulfate (Ferrous Sulfate 324 Mg Tablet.) 324 mg PO BID [facility] Last Admin: 05/31/24 08:44 Dose: 324 mg Furosemide (Furosemide 40 Mg/4 Ml Vial) 40 mg IVPUSH BID@0900,1800 [facility]; Protocol Last Admin: 05/31/24 08:45 Dose: 40 mg Glucose (Glucose Gel 15 Gm Gel..Gram.) 15 gm PO Q15M PRN; Protocol PRN Reason: per Hypoglycemia Standing Ord. Heparin Sodium (Porcine) (Heparin Sodium,Porcine 5,000 Unit/Ml Vial) 5,000 unit SUBCUT Q12H [facility] Last Admin: 05/31/24 08:45 Dose: 5,000 unit Dextrose (D10) 250 mls @ 750 mls/hr IV Q15M PRN; Protocol PRN Reason: per Hypoglycemia Standing Ord. Insulin Human Lispro (Insulin Lispro 100 Unit/Ml 3 Ml Vial) 0 unit SUBCUT QIDACHS [facility]; Protocol Last Admin: 05/31/24 08:11 Dose: Not Given Isosorbide Mononitrate (Isosorbide Mononitrate 30 Mg Tab.Er.24h) 30 mg PO DAILY [facility]; Protocol Last Admin: 05/31/24 08:44 Dose: 30 mg Magnesium Hydroxide (Milk Of Magnesia 30 Ml Oral.Susp) 30 ml PO DAILY PRN PRN Reason: Constipation Melatonin (Melatonin 3 Mg Tablet) 6 mg PO BEDTIME PRN PRN Reason: Insomnia Metoprolol Succinate (Metoprolol Succinate Er 25 Mg Tab.Er.24h) 25 mg PO DAILY [facility]; Protocol Last Admin: 05/31/24 08:44 Dose: 25 mg Nitroglycerin (Nitroglycerin 0.4 Mg Tab.Subl) 0.4 mg SUBLINGUAL Q5M PRN PRN Reason: Chest Pain Oxybutynin Chloride (Oxybutynin Chloride Er 5 Mg Tab.Er.24) 10 mg PO DAILY@1200 [facility] Last Admin: 05/30/24 13:34 Dose: 10 mg Sertraline HCl (Sertraline Hcl 50 Mg Tablet) 50 mg PO BEDTIME [facility] Last Admin: 05/30/24 21:38 Dose: 50 mg Sodium Chloride (0.9 % Sodium Chloride Flush 3 Ml Syringe) 3 ml IVFLUSH QSHIFT [facility] Last Admin: 05/31/24 08:45 Dose: 3 ml Tramadol HCl (Tramadol Hcl 50 Mg Tablet) 50 mg PO Q12H PRN PRN Reason: severe pain Last Admin: 05/30/24 17:09 Dose: 50 mg Trazodone HCl (Trazodone Hcl 50 Mg Tablet) 50 mg PO BEDTIME [facility] Last Admin: 05/30/24 21:39 Dose: 50 mg Home Medications ?Medication ?Instructions ?Recorded ?Confirmed ?Last Taken ?Type cyanocobalamin (vitamin B-12) 1 tab PO DAILY 08/12/20 05/29/24 05/29/24 12:00 History 1,000 mcg tablet ferrous sulfate 325 mg (65 mg 1 tab PO BID 08/12/20 05/29/24 05/29/24 12:00 History iron) tablet nitroglycerin 0.4 mg sublingual 1 tab sublingual NEEDED PRN 08/12/20 05/29/24 Unknown History tablet Chest Pain oxybutynin chloride 10 mg 1 tab PO DAILY@1200 08/12/20 05/29/24 05/29/24 12:00 History tablet,extended release 24 hr sertraline 50 mg tablet 1 tab PO BEDTIME 08/12/20 05/29/24 05/29/24 12:00 History trazodone 50 mg tablet 1 tab PO BEDTIME 08/12/20 05/29/24 05/29/24 12:00 History glipizide 5 mg tablet 5 mg PO DAILY 09/30/21 05/29/24 05/29/24 12:00 History calcium carbonate 1 tab PO DAILY 10/31/21 05/29/24 05/29/24 12:00 History tramadol 50 mg tablet 50 mg PO Q12H PRN severe pain 02/10/22 05/29/24 Unknown History aspirin 81 mg tablet,delayed 81 mg PO DAILY 03/11/22 05/29/24 05/29/24 12:00 History release atorvastatin 80 mg tablet 80 mg PO BEDTIME 04/06/24 05/29/24 05/29/24 12:00 History metformin 1,000 mg tablet 1,000 mg PO BID 04/06/24 05/29/24 05/29/24 12:00 History pantoprazole 40 mg tablet,delayed 40 mg PO BID 04/06/24 05/29/24 05/29/24 12:00 History release ergocalciferol (vitamin D2) 1,250 1,250 mcg PO [place] 05/29/24 05/29/24 05/28/24 History mcg (50,000 unit) capsule magnesium oxide 400 mg (241.3 mg 400 mg PO BID 05/29/24 05/29/24 05/29/24 12:00 History magnesium) tablet Physical Exam 2 Vital Signs: Vital Signs: Last Vital Signs Temp 97.8 F 05/31/24 07:20 Pulse 65 05/31/24 07:20 Resp 20 05/31/24 07:20 BP 125/60 05/31/24 07:20 Pulse Ox 96 05/31/24 07:20 O2 Del Method Nasal Cannula 05/31/24 07:20 O2 Flow Rate 2 05/31/24 07:20 BMI result Body Mass Index 37.0 Const: General: comfortable and no acute distress O rientation/consciousness: patient oriented x3 HEENT: Other: Unremarkable Head: Yes normal to inspection Neck: Neck: Yes normal visual inspection Chest: Chest palpation & inspection: normal inspection of the chest Resp: Auscultation: wheezes Cardio: Palpation: normal PMI Heart sounds: S1 normal heart sound present, S2 normal heart sound present, no gallops, no murmurs and no rubs GI: Palpation (GI): Soft to palpation Back/Spine/Pelvis: Other: unremarkable Skin: General skin exam: no rashes or lesions noted Neuro: General: patient oriented x3 Extrem: General: Yes normal to inspection Psych: Mental Status: mental status grossly normal Objective Labs and Meds 05/30/24 05:50 05/31/24 05:40 Lab results: Laboratory Results - last 24 hr 05/30/24 05/30/24 05/30/24 11:06 17:02 21:47 Sodium Potassium Chloride Carbon Dioxide Anion Gap BUN Creatinine Estim Creat Clear Calc Estimated GFR POC Glucose 133 H 238 H 263 H Random Glucose Calcium 05/31/24 05/31/24 05:40 07:06 Sodium 139 Potassium 4.2 D Chloride 104 Carbon Dioxide 26 Anion Gap 13 BUN 32 H Creatinine 1.34 Estim Creat Clear Calc 38.2 Estimated GFR 39 POC Glucose 137 H Random Glucose 152 H Calcium 9.8 D ECG Interpretation: EKG with underlying sinus rhythm and nonspecific ST-T changes in leads V1 to V3. Normal AR and corrected QT. Imaging Radiologist's impression: Impressions Chest CT 05/30/24 08:56 IMPRESSION: Underlying emphysema. No definite acute pneumonia or edema. The opacities demonstrated on 08/05/23 have improved. Extensive coronary calcifications Fleischner guidelines were followed. Electronically signed by: Chris Coffey MD 05/30/2024 04:37 PM EDT Assessment and Plan (1) Acute respiratory failure with hypoxia: Status: Acute (2) Pulmonary hypertension: Status: Acute Plan High sensitivity troponin within range. Cardiac BNP is actually low much lower than before. 120. Echocardiogram with LVEF of 55-60%. Mild aortic stenosis. Severe pulmonary hypertension. Pulmonary artery systolic pressure is 69 mm Hg with RA pressure of 8 mm Hg. In the recent cardiac catheterization, patent LAD stent; [id number] disease in the mid LAD; 60-70% stenosis mid circumflex but FFR negative; 60% proximal RCA stenosis but with positive remodeling. Normal LVEDP. It was felt that shortness of breath is not cardiac in nature based on this. Overall, suspect that she does have significant underlying lung disease leading to pulmonary hypertension. Left heart dysfunction less likely contributing to this as the LVEDP is normal. Stopped diuretics. Maximize bronchodilator therapy. We will arrange right heart catheterization for further assessment of pulmonary hypertension and may need referral to Pulmonary [facility] Center. Discussed with Dr. Barajas. Procedures Date of Service Date of Service: 05/31/24
[2024-05-31 10:56] LABS: Glucose, Whole Blood 195 mg/dL (60-115)
--- NOTE | 2024-05-31 11:33 | P.PNIM_ITS ---
Subjective Subjective Date of Service: 05/31/24 Interval History: Complaining of shortness of breath, denies chest pain, no chest tightness, no wheeze, no palpitations, no headache no lightheadedness, no dizziness, minus 3830 L, currently on IV doxycycline twice daily, IV Lasix 40 mg b.i.d. and DuoNeb updraft q.i.d. Not on home O2 Review of Systems All other system reviewed and are negative Physical Exam 2 Vital Signs: Vital Signs: Last Vital Signs Temp 97.3 F 05/31/24 11:05 Pulse 66 05/31/24 11:05 Resp 18 05/31/24 11:05 BP 121/60 05/31/24 11:05 Pulse Ox 97 05/31/24 11:05 O2 Del Method Nasal Cannula 05/31/24 11:05 O2 Flow Rate 2 05/31/24 11:05 BMI result Body Mass Index 37.0 Const: Other: General awake alert x3, resting comfortably in no acute distress. Neck supple no JVD. CVS regular rate rhythm, Respiratory lungs clear to auscultation, no respiratory distress, no wheeze, no rhonchi. Gastrointestinal abdomen soft, non tender, bowel sounds audible Extremities no edema. Neuro non focal Skin no rash Psych appropriate affect Objective Data Active Medications Acetaminophen (Acetaminophen 325 Mg Tablet) 650 mg PO Q6H PRN PRN Reason: Pain, Mild (Pain Scale 1-3), fever or headache Last Admin: 05/30/24 13:36 Dose: 650 mg Documented By: WALTER Albuterol/Ipratropium (Albuterol/Iprat 2.5/0.5mg 3 Ml Ampul.Neb) 3 ml INHALE RQ4H WHILE AWAKE [facility] Last Admin: 05/31/24 11:01 Dose: 3 ml Documented By: ARVIND Aspirin (Aspirin Enteric Coated 81 Mg Tablet.Dr) 81 mg PO DAILY [facility] Last Admin: 05/31/24 08:44 Dose: 81 mg Documented By: WALTER Calcium Carbonate (Calcium Carbonate 750 Mg Tab.Chew) 750 mg PO Q4H PRN PRN Reason: Heartburn Last Admin: 05/31/24 08:48 Dose: 750 mg Documented By: WALTER Calcium Carbonate (Calcium Oyster Shell Elemental 500 Mg Tablet) 500 mg PO DAILY [facility] Last Admin: 05/31/24 08:44 Dose: 500 mg Documented By: WALTER Cyanocobalamin (Cyanocobalamin (Vitamin B-12) 1,000 Mcg Tablet) 1,000 mcg PO DAILY [facility] Last Admin: 05/31/24 08:44 Dose: 1,000 mcg Documented By: WALTER Ezetimibe (Ezetimibe 10 Mg Tablet) 10 mg PO DAILY [facility] Last Admin: 05/31/24 08:44 Dose: 10 mg Documented By: WALTER Ergocalciferol (Ergocalciferol (Vitamin D2) 1,250 Mcg Capsule) 1,250 mcg PO [facility] Ferrous Sulfate (Ferrous Sulfate 324 Mg Tablet.Dr) 324 mg PO BID [facility] Last Admin: 05/31/24 08:44 Dose: 324 mg Documented By: WALTER Furosemide (Furosemide 40 Mg/4 Ml Vial) 40 mg IVPUSH BID@0900,1800 [facility]; Protocol Last Admin: 05/31/24 08:45 Dose: 40 mg Documented By: WALTER Glucose (Glucose Gel 15 Gm Gel..Gram.) 15 gm PO Q15M PRN; Protocol PRN Reason: per Hypoglycemia Standing Ord. Heparin Sodium (Porcine) (Heparin Sodium,Porcine 5,000 Unit/Ml Vial) 5,000 unit SUBCUT Q12H [facility] Last Admin: 05/31/24 08:45 Dose: 5,000 unit Documented By: WALTER Dextrose (D10) 250 mls @ 750 mls/hr IV Q15M PRN; Protocol PRN Reason: per Hypoglycemia Standing Ord. Insulin Human Lispro (Insulin Lispro 100 Unit/Ml 3 Ml Vial) 0 unit SUBCUT QIDACHS [facility]; Protocol Last Admin: 05/31/24 08:11 Dose: Not Given Documented By: WALTER Non-Admin Reason: No Insulin Coverage Isosorbide Mononitrate (Isosorbide Mononitrate 30 Mg Tab.Er.24h) 30 mg PO DAILY [facility]; Protocol Last Admin: 05/31/24 08:44 Dose: 30 mg Documented By: WALTER Magnesium Hydroxide (Milk Of Magnesia 30 Ml Oral.Susp) 30 ml PO DAILY PRN PRN Reason: Constipation Melatonin (Melatonin 3 Mg Tablet) 6 mg PO BEDTIME PRN PRN Reason: Insomnia Metoprolol Succinate (Metoprolol Succinate Er 25 Mg Tab.Er.24h) 25 mg PO DAILY [facility]; Protocol Last Admin: 05/31/24 08:44 Dose: 25 mg Documented By: WALTER Nitroglycerin (Nitroglycerin 0.4 Mg Tab.Subl) 0.4 mg SUBLINGUAL Q5M PRN PRN Reason: Chest Pain Oxybutynin Chloride (Oxybutynin Chloride Er 5 Mg Tab.Er.24) 10 mg PO DAILY@1200 [facility] Last Admin: 05/30/24 13:34 Dose: 10 mg Documented By: WALTER Sertraline HCl (Sertraline Hcl 50 Mg Tablet) 50 mg PO BEDTIME [facility] Last Admin: 05/30/24 21:38 Dose: 50 mg Documented By: PATRICIA Sodium Chloride (0.9 % Sodium Chloride Flush 3 Ml Syringe) 3 ml IVFLUSH QSHIFT [facility] Last Admin: 05/31/24 08:45 Dose: 3 ml Documented By: WALTER Tramadol HCl (Tramadol Hcl 50 Mg Tablet) 50 mg PO Q12H PRN PRN Reason: severe pain Last Admin: 05/30/24 17:09 Dose: 50 mg Documented By: SHANEL Trazodone HCl (Trazodone Hcl 50 Mg Tablet) 50 mg PO BEDTIME [facility] Last Admin: 05/30/24 21:39 Dose: 50 mg Documented By: PATRICIA Labs 05/30/24 05:50 05/31/24 05:40 Labs: Laboratory Results - last 24 hr 05/30/24 05/30/24 05/31/24 17:02 21:47 05:40 Anion Gap 13 Estim Creat Clear Calc 38.2 Estimated GFR 39 POC Glucose 238 H 263 H Random Glucose 152 H Calcium 9.8 D 05/31/24 05/31/24 07:06 10:53 Anion Gap Estim Creat Clear Calc Estimated GFR POC Glucose 137 H 195 H Random Glucose Calcium Microbiology Microbiology Results: Microbiology 05/29/24 Unknown Urine Culture - Final Urine clean catch - Clean Catch Midstream 05/29/24 13:08 Blood Culture - Preliminary Blood - Venous No growth after 24 hours. 05/29/24 13:08 Blood Culture - Preliminary Blood - Venous No growth after 24 hours. Assessment and Plan (1) Pulmonary hypertension: Status: Acute (2) Acute respiratory failure with hypoxia: Status: Acute (3) Hyperlipidemia: Status: Acute Plan 74-year-old woman admitted with acute hypoxic respiratory failure secondary to pneumonia Acute hypoxic respiratory failure secondary to asthma/COPD overlap syndrome/severe pulmonary hypertension Continue low-dose steroids and updraft treatment, dc iv doxycycline Chest x-ray not showing any obvious consolidation or effusion chest CT showed underlying emphysema, no definite acute pneumonia or edema, extensive coronary calcification Case discussed with Cardiology they recommend outpatient right heart catheterization, they feel severe pulmonary hypertension likely related to underlying lung disease on IV Lasix 40 b.i.d. will wean diuretics and follow clinical course Wean steroids as tolerated. Wean oxygen not on home O2. Hyperkalemia Resolved with diuretics Diabetes mellitus type 2 Elevated blood sugars likely due to steroids, continue Sliding scale, ADA diet Coronary artery disease Continue aspirin and statin Outpatient follow-up with Cardiology Mental health Continue home medications GERD Continue PPI Obesity class 2. BMI 37.0 Recommend low-calorie diet and ambulation DVT prophylaxis heparin Full code In my clinical judgment patient require continued inpatient hospitalization for management and treatment for acute hypoxic respiratory failure with severe pulmonary hypertension requiring iv diuretics and steroids. Quality Stroke Does the patient have a stroke diagnosis?: No VTE Prior VTE?: No VTE Risk Level:: Medical - moderate - high VTE Device Contraindication: Treatment Not Indicated VTE Drug Contraindication: N/A - Med Ordered
[2024-05-31] MEDS: methylPREDNISolone Sod Succ 40 MG/ML VIAL IVPUSH (12:41)
[2024-05-31] MEDS: oxyBUTYnin chloride ER 5 MG TAB.ER.24 10 MG PO (12:41)
[2024-05-31] MEDS: Acetaminophen 325 MG TABLET 650 MG PO (12:41)
[2024-05-31] MEDS: Insulin Lispro 100 UNIT/ML 3 ML VIAL SUBCUT ×3 (12:42→21:42)
--- NOTE | 2024-05-31 15:08 | MHC.CM.PN ---
Per MD rounds no discharge today. Patient continues on supplemental oxygen. She requires IV Lasix and steroids. DP home with resumption of [facility] services. Patients dtr Ad[facility] will transport home at discharge.
[2024-05-31 15:56] LABS: Glucose, Whole Blood 264 mg/dL (60-115)
[2024-05-31 21:33] LABS: Glucose, Whole Blood 289 mg/dL (60-115)
[2024-05-31] MEDS: Sertraline HCL 50 MG TABLET PO (21:41)
[2024-05-31] MEDS: traZODone HCL 50 MG TABLET PO (21:41)
[2024-05-31] MEDS: ondansetron HCL 4 MG/2 ML VIAL IVPUSH (23:27)
[2024-06-01] VITALS (11 sets, daily range): BP systolic 109–149; BP diastolic 50–66; PULSE 68–90; RESP 16–20; TEMP 36.2–36.9; O2SAT 92–98
[2024-06-01 06:47] LABS: Anion Gap 13 (12-20); Blood Urea Nitrogen 33 mg/dL (9-16); Carbon Dioxide 28 mmol/L (22-29); Chloride 101 mmol/L (96-108); Creatinine Clr Calc Pharmacy 39.4; Estimated Glomerular Filt Rate 40; Glucose Random 139 mg/dL (60-115); Potassium 4.3 mmol/L (3.3-5.1); Sodium 138 mmol/L (135-145)
[2024-06-01 07:01] LABS: Glucose, Whole Blood 145 mg/dL (60-115)
[2024-06-01] MEDS: Albuterol/Iprat 2.5/0.5MG 3 ML AMPUL.NEB INHALE ×4 (07:51→18:56)
[2024-06-01] MEDS: Heparin Sodium,Porcine 5,000 UNIT/ML VIAL 5000 UNIT SUBCUT ×2 (08:59→23:00)
[2024-06-01] MEDS: Calcium Carbonate 750 MG TAB.CHEW PO ×2 (08:59→17:17)
[2024-06-01] MEDS: 0.9 % Sodium Chloride Flush 3 ML SYRINGE IVFLUSH ×3 (08:59→23:01)
[2024-06-01] MEDS: Calcium Oyster Shell Elemental 500 MG TABLET PO (09:00)
[2024-06-01] MEDS: Isosorbide Mononitrate 30 MG TAB.ER.24H PO (09:00)
[2024-06-01] MEDS: Ezetimibe 10 MG TABLET PO (09:00)
[2024-06-01] MEDS: Aspirin Enteric Coated 81 MG TABLET.DR PO (09:00)
[2024-06-01] MEDS: Ferrous Sulfate 324 MG TABLET.DR PO ×2 (09:00→23:00)
[2024-06-01] MEDS: Metoprolol Succinate ER 25 MG TAB.ER.24H PO (09:00)
[2024-06-01] MEDS: Cyanocobalamin (Vitamin B-12) 1,000 MCG TABLET 1000 MCG PO (09:00)
[2024-06-01] MEDS: ondansetron HCL 4 MG/2 ML VIAL IVPUSH ×2 (09:05→23:07)
--- NOTE | 2024-06-01 09:42 | PM.PNCARD ---
Subjective Subjective Date of Service: 06/01/24 Interval history: She has some acid reflux type symptoms but otherwise, feeling okay. Breathing is slightly better. She is sitting in a chair. Review of Systems Review of Systems Yes all other systems are reviewed and are negative Constitutional: Reports as per HPI and Reports no additional constitutional complaints Eyes: Reports as per HPI and Denies no additional eye complaints Denies system reviewed and no additional complaints, except as documented and Reports as per HPI Cardiovascular: Reports as per HPI, Reports no additional cardiovascular complaints, Denies acrocyanosis, Denies cool extremities, Denies chest pain, Denies leg edema, Denies lightheadedness, Denies palpitations and Denies dyspnea Respiratory: Reports as per HPI, Denies no additional respiratory complaints and Denies dyspnea Gastrointestinal: Reports as per HPI and Denies no additional gastrointestinal complaints Genitourinary: Reports as per HPI Musculoskeletal: Reports no additional musculoskeletal complaints and Reports as per HPI Skin/Breast: Reports system reviewed and no additional complaints, except as docu Reports system reviewed and no additional complaints, except as documented and Reports as per HPI Psychiatric: Reports no additional psychiatric complaints and Reports as per HPI Endocrine: Reports no additional endocrine complaints, Reports as per HPI and Denies palpitations Hematologic/Lymphatic: Reports no additional hematologic/lymphatic complaints and Reports as per HPI Allergic/Immunologic: Reports no additional allergic/immunologic complaints and Reports as per HPI Physical Exam Vital Signs: Last Vital Signs Temp 97.6 F 06/01/24 07:28 Pulse 90 06/01/24 07:52 Resp 18 06/01/24 07:52 BP 149/66 H 06/01/24 07:28 Pulse Ox 96 06/01/24 07:28 O2 Del Method Nasal Cannula 06/01/24 07:28 O2 Flow Rate 2 06/01/24 07:28 BMI result Body Mass Index 37.0 Const General: comfortable and no acute distress Orientation/consciousness: patient oriented x3 HEENT Other: Unremarkable Head: Yes normal to inspection Neck Neck: Yes normal visual inspection Chest Chest palpation & inspection: normal inspection of the chest Resp Other: Wheezing still present but improved from yesterday Cardio Palpation: normal PMI Heart sounds: S1 normal heart sound present, S2 normal heart sound present, no gallops, no murmurs and no rubs GI Palpation (GI): Soft to palpation Back/Spine/Pelvis Other: unremarkable Skin General skin exam: no rashes or lesions noted Neuro General: patient oriented x3 Extrem General: Yes normal to inspection Psych Mental Status: mental status grossly normal Objective Labs and Meds 05/30/24 05:50 06/01/24 05:30 Lab results: Laboratory Results - last 24 hr 05/31/24 05/31/24 05/31/24 10:53 15:52 21:28 Sodium Potassium Chloride Carbon Dioxide Anion Gap BUN Creatinine Estim Creat Clear Calc Estimated GFR POC Glucose 195 H 264 H 289 H Random Glucose Calcium 06/01/24 06/01/24 05:30 06:52 Sodium 138 Potassium 4.3 Chloride 101 Carbon Dioxide 28 Anion Gap 13 BUN 33 H Creatinine 1.30 Estim Creat Clear Calc 39.4 Estimated GFR 40 POC Glucose 145 H Random Glucose 139 H Calcium 10.0 Progress Note: A&P Assessment and plan (1) Acute respiratory failure with hypoxia: Status: Acute (2) Pulmonary hypertension: Status: Acute Plan High sensitivity troponin within range. Cardiac BNP is actually low much lower than before. 120. Echocardiogram with LVEF of 55-60%. Mild aortic stenosis. Severe pulmonary hypertension. Pulmonary artery systolic pressure is 69 mm Hg with RA pressure of 8 mm Hg. In the recent cardiac catheterization, patent LAD stent; [id number] disease in the mid LAD; 60-70% stenosis mid circumflex but FFR negative; 60% proximal RCA stenosis but with positive remodeling. Normal LVEDP. It was felt that shortness of breath is not cardiac in nature based on this. In this context, pulmonary hypertension could be related to underlying lung disease. Diastolic heart failure is less likely as the resting LVEDP is normal. Still possible to get exercise induced diastolic dysfunction but that unlikely explains resting shortness of breath. Does not need any aggressive diuresis. Optimize bronchodilator therapy. Will arrange right heart catheterization for pulmonary hypertension assessment. Based on the findings, may need referral to Pulmonary hypertension Clinic. Plan discussed with patient she agrees. Discussed with . Time Spent With Patient Time: Total time managing care of this patient today ____ minutes. Progress Note: Quality Stroke Does the patient have a stroke diagnosis?: No Procedures Date of Service Date of Service: 06/01/24
[2024-06-01] MEDS: Omeprazole 20 MG CAPSULE.DR PO (10:55)
[2024-06-01 10:56] LABS: Glucose, Whole Blood 196 mg/dL (60-115)
--- NOTE | 2024-06-01 12:49 | HO.PM.IMPN ---
Subjective Subjective Date of Service: 06/01/24 Interval History: Complaining of heartburn/acidity and right arm pain, no shortness of breath, complaining of dry cough, no fevers, no chills, not on home O2, Review of Systems All other system reviewed and are negative. Physical Exam Vital Signs: Vital Signs: Last Vital Signs Temp 97.2 F 06/01/24 11:19 Pulse 68 06/01/24 12:12 Resp 20 06/01/24 12:12 BP 137/59 L 06/01/24 11:19 Pulse Ox 94 06/01/24 11:19 O2 Del Method Nasal Cannula 06/01/24 11:19 O2 Flow Rate 2 06/01/24 11:19 BMI result Body Mass Index 37.0 Const: Other: General awake alert x3, resting comfortably in no acute distress. Neck supple no JVD. CVS regular rate rhythm, Respiratory lungs expiratory rhonchi, no respiratory distress, no rales Gastrointestinal abdomen soft, non tender, bowel sounds audible Extremities no edema. Neuro non focal Skin no rash Psych appropriate affect Objective Data Active Medications Acetaminophen (Acetaminophen 325 Mg Tablet) 650 mg PO Q6H PRN PRN Reason: Pain, Mild (Pain Scale 1-3), fever or headache Last Admin: 05/31/24 12:41 Dose: 650 mg Documented By: WALTER Albuterol/Ipratropium (Albuterol/Iprat 2.5/0.5mg 3 Ml Ampul.Neb) 3 ml INHALE RQ4H WHILE AWAKE [facility] Last Admin: 06/01/24 12:11 Dose: 3 ml Documented By: ARVIND Aspirin (Aspirin Enteric Coated 81 Mg Tablet.) 81 mg PO DAILY [facility] Last Admin: 06/01/24 09:00 Dose: 81 mg Documented By: LONNY Calcium Carbonate (Calcium Carbonate 750 Mg Tab.Chew) 750 mg PO Q4H PRN PRN Reason: Heartburn Last Admin: 06/01/24 08:59 Dose: 750 mg Documented By: LONNY Calcium Carbonate (Calcium Oyster Shell Elemental 500 Mg Tablet) 500 mg PO DAILY [facility] Last Admin: 06/01/24 09:00 Dose: 500 mg Documented By: LONNY Cyanocobalamin (Cyanocobalamin (Vitamin B-12) 1,000 Mcg Tablet) 1,000 mcg PO DAILY [facility] Last Admin: 06/01/24 09:00 Dose: 1,000 mcg Documented By: LONNY Ezetimibe (Ezetimibe 10 Mg Tablet) 10 mg PO DAILY [facility] Last Admin: 06/01/24 09:00 Dose: 10 mg Documented By: LONNY Ergocalciferol (Ergocalciferol (Vitamin D2) 1,250 Mcg Capsule) 1,250 mcg PO [facility] Ferrous Sulfate (Ferrous Sulfate 324 Mg Tablet.) 324 mg PO BID [facility] Last Admin: 06/01/24 09:00 Dose: 324 mg Documented By: LONNY Glucose (Glucose Gel 15 Gm Gel..Gram.) 15 gm PO Q15M PRN; Protocol PRN Reason: per Hypoglycemia Standing Ord. Heparin Sodium (Porcine) (Heparin Sodium,Porcine 5,000 Unit/Ml Vial) 5,000 unit SUBCUT Q12H [facility] Last Admin: 06/01/24 08:59 Dose: 5,000 unit Documented By: LONNY Dextrose (D10) 250 mls @ 750 mls/hr IV Q15M PRN; Protocol PRN Reason: per Hypoglycemia Standing Ord. Insulin Human Lispro (Insulin Lispro 100 Unit/Ml 3 Ml Vial) 0 unit SUBCUT QIDACHS [facility]; Protocol Last Admin: 06/01/24 08:58 Dose: Not Given Documented By: LONNY Non-Admin Reason: No Insulin Coverage Isosorbide Mononitrate (Isosorbide Mononitrate 30 Mg Tab.Er.24h) 30 mg PO DAILY [facility]; Protocol Last Admin: 06/01/24 09:00 Dose: 30 mg Documented By: LONNY Magnesium Hydroxide (Milk Of Magnesia 30 Ml Oral.Susp) 30 ml PO DAILY PRN PRN Reason: Constipation Melatonin (Melatonin 3 Mg Tablet) 6 mg PO BEDTIME PRN PRN Reason: Insomnia Metoprolol Succinate (Metoprolol Succinate Er 25 Mg Tab.Er.24h) 25 mg PO DAILY [facility]; Protocol Last Admin: 06/01/24 09:00 Dose: 25 mg Documented By: LONNY Nitroglycerin (Nitroglycerin 0.4 Mg Tab.Subl) 0.4 mg SUBLINGUAL Q5M PRN PRN Reason: Chest Pain Omeprazole (Omeprazole 20 Mg Capsule.) 20 mg PO DAILY@0630 [facility] Last Admin: 06/01/24 10:55 Dose: 20 mg Documented By: LONNY Ondansetron HCl (Ondansetron Hcl 4 Mg/2 Ml Vial) 4 mg IVPUSH Q4H PRN PRN Reason: Nausea and Vomiting Last Admin: 06/01/24 09:05 Dose: 4 mg Documented By: LONNY Oxybutynin Chloride (Oxybutynin Chloride Er 5 Mg Tab.Er.24) 10 mg PO DAILY@1200 [facility] Last Admin: 05/31/24 12:41 Dose: 10 mg Documented By: WALTER Prednisone (Prednisone 10 Mg Tablet) 10 mg PO DAILY [facility] Sertraline HCl (Sertraline Hcl 50 Mg Tablet) 50 mg PO BEDTIME [facility] Last Admin: 05/31/24 21:41 Dose: 50 mg Documented By: FLACO Sodium Chloride (0.9 % Sodium Chloride Flush 3 Ml Syringe) 3 ml IVFLUSH QSHIFT [facility] Last Admin: 06/01/24 08:59 Dose: 3 ml Documented By: LONNY Tramadol HCl (Tramadol Hcl 50 Mg Tablet) 50 mg PO Q12H PRN PRN Reason: severe pain Last Admin: 05/30/24 17:09 Dose: 50 mg Documented By: SHANEL Trazodone HCl (Trazodone Hcl 50 Mg Tablet) 50 mg PO BEDTIME [facility] Last Admin: 05/31/24 21:41 Dose: 50 mg Documented By: FLACO Labs 05/30/24 05:50 06/01/24 05:30 Labs: Laboratory Results - last 24 hr 05/31/24 05/31/24 06/01/24 15:52 21:28 05:30 Anion Gap 13 Estim Creat Clear Calc 39.4 Estimated GFR 40 POC Glucose 264 H 289 H Random Glucose 139 H Calcium 10.0 06/01/24 06/01/24 06:52 10:52 Anion Gap Estim Creat Clear Calc Estimated GFR POC Glucose 145 H 196 H Random Glucose Calcium Microbiology Microbiology Results: Microbiology 05/29/24 13:08 Blood Culture - Preliminary Blood - Venous No growth after 48 hours. 05/29/24 13:08 Blood Culture - Preliminary Blood - Venous No growth after 48 hours. 05/29/24 Unknown Urine Culture - Final Urine clean catch - Clean Catch Midstream Assessment and Plan (1) Acute respiratory failure with hypoxia: Status: Acute Plan 74-year-old woman admitted with acute hypoxic respiratory failure secondary to pneumonia Acute hypoxic respiratory failure secondary to asthma/COPD overlap syndrome/severe pulmonary hypertension Continue low-dose steroids and updraft treatment, avoid antibiotics Chest x-ray not showing any obvious consolidation or effusion chest CT showed underlying emphysema, no definite acute pneumonia or edema, extensive coronary calcification Case discussed with Cardiology they recommend outpatient right heart catheterization, they feel severe pulmonary hypertension likely related to underlying lung disease, patient with normal LVEDP s/p IV Lasix 40 b.i.d. 5 L negative, On low-dose prednisone 10 mg daily, diuretics discontinued Obtain home O2 eval since desaturate on room air to 79% Seen by pulmonology they feels symptoms related to CHF, at present appears euvolemic, will continue close follow-up Cardiology will arrange right heart catheterization for pulmonary hypertension assessment Follow clinical course Right arm muscular pain Recommend to continue tramadol/ hot pack Hyperkalemia Resolved with diuretics Diabetes mellitus type 2 Elevated blood sugars likely due to steroids, continue Sliding scale, ADA diet Coronary artery disease Continue aspirin and statin Outpatient follow-up with Cardiology Mental health Continue home medications GERD Heartburn/reflux acidity due to steroids, resume PPI Obesity class 2. BMI 37.0 Recommend low-calorie diet and ambulation DVT prophylaxis heparin Full code In my clinical judgment patient require continued inpatient hospitalization for management and treatment for acute hypoxic respiratory failure with severe pulmonary hypertension. Quality Stroke Does the patient have a stroke diagnosis?: No VTE Prior VTE?: No VTE Risk Level:: Medical - moderate - high VTE Device Contraindication: Treatment Not Indicated VTE Drug Contraindication: N/A - Med Ordered
[2024-06-01] MEDS: Insulin Lispro 100 UNIT/ML 3 ML VIAL SUBCUT ×3 (13:56→23:00)
[2024-06-01] MEDS: oxyBUTYnin chloride ER 5 MG TAB.ER.24 10 MG PO (13:56)
[2024-06-01] MEDS: traMADoL HCL 50 MG TABLET PO ×2 (14:01→23:00)
[2024-06-01 16:01] LABS: Glucose, Whole Blood 209 mg/dL (60-115)
[2024-06-01] MEDS: guaiFENesin DM 200/20/10 ML 10 ML SYRUP PO ×2 (18:35→22:59)
[2024-06-01 21:07] LABS: Glucose, Whole Blood 286 mg/dL (60-115)
[2024-06-01] MEDS: Acetaminophen 325 MG TABLET 650 MG PO (22:59)
[2024-06-01] MEDS: Melatonin 3 MG TABLET 6 MG PO (22:59)
[2024-06-01] MEDS: traZODone HCL 50 MG TABLET PO (22:59)
[2024-06-01] MEDS: Sertraline HCL 50 MG TABLET PO (23:00)
[2024-06-02] VITALS (8 sets, daily range): BP systolic 119–133; BP diastolic 56–62; PULSE 65–78; RESP 15–20; TEMP 36.1–36.2; O2SAT 82–100
[2024-06-02] MEDS: Omeprazole 20 MG CAPSULE.DR PO (05:44)
[2024-06-02 07:05] LABS: Glucose, Whole Blood 140 mg/dL (60-115)
[2024-06-02] MEDS: Albuterol/Iprat 2.5/0.5MG 3 ML AMPUL.NEB INHALE ×3 (07:35→15:12)
[2024-06-02] MEDS: Cyanocobalamin (Vitamin B-12) 1,000 MCG TABLET 1000 MCG PO (08:51)
[2024-06-02] MEDS: Aspirin Enteric Coated 81 MG TABLET.DR PO (08:51)
[2024-06-02] MEDS: Calcium Oyster Shell Elemental 500 MG TABLET PO (08:51)
[2024-06-02] MEDS: Heparin Sodium,Porcine 5,000 UNIT/ML VIAL 5000 UNIT SUBCUT (08:51)
[2024-06-02] MEDS: guaiFENesin DM 200/20/10 ML 10 ML SYRUP PO (08:51)
[2024-06-02] MEDS: Isosorbide Mononitrate 30 MG TAB.ER.24H PO (08:52)
[2024-06-02] MEDS: Metoprolol Succinate ER 25 MG TAB.ER.24H PO (08:52)
[2024-06-02] MEDS: predniSONE 10 MG TABLET PO (08:52)
[2024-06-02] MEDS: Ferrous Sulfate 324 MG TABLET.DR PO (08:52)
[2024-06-02] MEDS: Ezetimibe 10 MG TABLET PO (08:52)
[2024-06-02] MEDS: 0.9 % Sodium Chloride Flush 3 ML SYRINGE IVFLUSH (08:55)
--- NOTE | 2024-06-02 09:47 | PM.DS ---
DS: Providers Provider Date of Service: 06/02/24 Date of admission: 05/29/24 16:56 Primary care physician: Estrella Brunner MD Consults: 05/30/24 10:57 Consult to Pulmonology Routine Consulting Provider: [facility] [place] Pulmonology Services Reason for consultation: sob, copd 05/30/24 13:38 Consult to Cardiology Routine Consulting Provider: [facility] [place] [facility] Reason for consultation: ? CHF DS: Diagnosis Discharge Diagnosis (1) Acute respiratory failure with hypoxia: Status: Acute DS: Summary Hospital Course Hospital Course: HPI From admission H&P: 74 year old women presenting to the ER with SOB. She has hx of chronic lung disease and has felt like she has been SOB and has not recuperated since her last respiratory illness 1 week ago where she was given azithromycin for 7 days and and nebulization treatments. She was walking from her apartment to her truck and was severely winded so she came to the ER for further evaluation. She stated that she has been feeling unwell for he last three months. She denied fever, chills, nausea, vomiting, diarrhea, recent echocardiogram in December which showed basal inferior and inferior lateral ischemia with EF of 53%. Her lactic acid was elevated at 3.7, BNP 120, oxygen saturation 80%. He was given a dose of ceftriaxone, doxycycline, Solu-Medrol, albuterol while in the ER. He will be admitted for further management and treatment of acute hypoxic respiratory failure secondary to COPD/asthma exacerbation. Hospital Course: Patient presented to the hospital with respiratory symptoms and was diagnosed with acute respiratory failure with hypoxia secondary to asthma/COPD overlap syndrome. She was initially started on high-dose steroids and scheduled bronchodilators. A pulmonary consult was requested and their evaluation deemed that the patient's presentation was likely secondary to underlying cardiac etiology. Hence, a cardiac consultation was requested and the patient was started on IV diuretics with 40 mg of Lasix twice daily. Cardiology evaluated the patient and felt that her presentation was not secondary to fluid overload but rather severe pulmonary hypertension. She achieved a fluid balance of-5 L and has improvement in her symptoms. Her diuretics have been discontinued and will not be discharged any per Cardiology recommendations. She will be discharged on a short course of oral prednisone 10 mg daily for 5 more days. In regards to her respiratory failure, the patient continues to require supplemental oxygen and has been evaluated for home O2 for which he has qualified 2L at rest and exertion. Patient will also evaluated by Physical therapy who recommended short-term rehabilitation which the patient has declined and hence will have home services with PT and VNA arranged. Time Attestation Discharge Coordination Time (in mins): 45 Quality: Safe Use of Opioids Does Pt have an Active Cancer Diagnosis on the Problem List?: No Quality: Stroke Does the patient have a stroke diagnosis?: No Physical Exam Vital Signs: Vital Signs: Last Vital Signs Temp 97.1 F 06/02/24 07:22 Pulse 73 06/02/24 07:35 Resp 20 06/02/24 07:35 BP 119/56 L 06/02/24 07:22 Pulse Ox 94 06/02/24 07:22 O2 Del Method Nasal Cannula 06/02/24 07:22 O2 Flow Rate 2 06/02/24 07:22 BMI result Body Mass Index 37.0 Const: Other: General - no acute distress, appears comfortable Cardiovascular - regular rate and rhythm, S1-S2 Lungs - normal respiratory effort, clear to auscultation bilaterally, no wheezing Abdomen - soft, nontender, no rebound or guarding Extremities - no edema bilaterally Neuro - awake and alert, no focal deficits DS: Data Data Completed and Pending Completed studies during hospitalization [Text1]: Procedures Insertion of Endotracheal Airway into Trachea, Via Natural or Artificial Opening (12/19/21) Insertion of Infusion Device into Superior Vena Cava, Percutaneous Approach (12/19/21) Introduction of Vasopressor into Peripheral Vein, Percutaneous Approach (12/19/21) Replacement of Left Knee Joint with Synthetic Substitute, Uncemented, Open Approach (11/11/21) Respiratory Ventilation, Less than 24 Consecutive Hours (12/19/21) Labs on day of discharge: Laboratory Results - last 24 hr 06/01/24 06/01/24 06/01/24 10:52 15:53 20:59 POC Glucose 196 H 209 H 286 H 06/02/24 06:53 POC Glucose 140 H Preliminary micro results at discharge 05/29/24 13:08 Blood Culture - Preliminary Blood - Venous No growth after 48 hours. 05/29/24 13:08 Blood Culture - Preliminary Blood - Venous No growth after 48 hours. Discharge Plan Discharge Anticipated Discharge Date/Time: 06/02/24 15:00 Patient Disposition: Home Health Service Discharge Diagnosis: Pulm HTN resp. failure Referrals: Estrella Brunner MD [Primary Care Provider] - 1 Week Aleksandr Castro MD [Physician] - 1 Week Discharge Medications: New prednisone 10 mg Tablet 10 mg PO DAILY Qty: 5 0RF Continued (DME) walker Misc See Rx Instructions .MEDSUPPLY Qty: 1 0RF Rx Instructions: Folding Front wheeled walker ibuprofen 600 mg tablet 600 mg PO Q8H PRN (Reason: pain) 10 Days Qty: 20 0RF Trelegy Ellipta 200-62.5-25 mcg blister with device 1 ea PO DAILY Qty: 60 6RF ipratropium-albuterol 0.5 mg-3 mg(2.5 mg base)/3 mL solution for nebulization 3 ml inhalation Q4-6H PRN (Reason: wheezing) Qty: 180 6RF trazodone 50 mg tablet 1 tab PO BEDTIME oxybutynin chloride 10 mg tablet extended release 24hr 1 tab PO DAILY@1200 cyanocobalamin (vitamin B-12) 1,000 mcg tablet 1 tab PO DAILY ferrous sulfate 325 mg (65 mg iron) tablet 1 tab PO BID nitroglycerin 0.4 mg tablet, sublingual 1 tab sublingual NEEDED PRN (Reason: Chest Pain) sertraline 50 mg tablet 1 tab PO BEDTIME atorvastatin 80 mg tablet 80 mg PO BEDTIME metformin 1,000 mg tablet 1,000 mg PO BID pantoprazole 40 mg tablet,delayed release (DR/EC) 40 mg PO BID calcium carbonate 500 mg calcium (1,250 mg) tablet 1 tab PO DAILY magnesium oxide 400 mg (241.3 mg magnesium) tablet 400 mg PO BID ergocalciferol (vitamin D2) 1,250 mcg (50,000 unit) capsule 1,250 mcg PO [place] aspirin 81 mg tablet,delayed release (DR/EC) 81 mg PO DAILY glipizide 5 mg tablet 5 mg PO DAILY tramadol 50 mg tablet 50 mg PO Q12H PRN (Reason: severe pain) Repatha SureClick 140 mg/mL pen injector 140 mg subcut Q2W 90 Days Qty: 6 3RF Combivent Respimat 20-100 mcg/actuation mist 1 puff inhalation Q4H 30 Days Qty: 4 6RF isosorbide mononitrate 30 mg tablet extended release 24 hr 30 mg PO DAILY Qty: 30 5RF metoprolol succinate [Toprol XL] 25 mg tablet extended release 24 hr 25 mg PO DAILY Qty: 30 5RF ezetimibe 10 mg tablet 10 mg PO DAILY Qty: 30 5RF Discharge Orders: Discharge Order (Routine); Ordered 06/02/24 Ordered By: Nehemias Pineda Diet: Advance to usual diet Activity on Discharge: As tolerated Stand Alone Forms: Patient Portal Discharge page Print Language: Peruvian Care Plan Goals: To stay healthy and out of the hospital. Health Concerns: See discharge summary. Plan of Treatment: See discharge summary. Assessment: See discharge summary.
[2024-06-02 10:50] LABS: Glucose, Whole Blood 278 mg/dL (60-115)
[2024-06-02] MEDS: oxyBUTYnin chloride ER 5 MG TAB.ER.24 10 MG PO (11:37)
[2024-06-02] MEDS: Insulin Lispro 100 UNIT/ML 3 ML VIAL SUBCUT (11:38)
--- NOTE | 2024-06-02 13:58 | P.F2F_ITS ---
Service Date Service Date: 06/02/24 Encounter Date of encounter: 06/02/24 Reasons for Services Signs and symptoms assessed: hypoxia med mgmt physical weakness/therapy Reason for custodial: medication management and medication treatment Reason for physical therapy: home safety and mobility and therapeutic exercises Overseeing Care: Estrella Brunner Homebound: Leaving the home is medically contraindicated at this time without the asist of a device and/or another person due th the listed conditions above and below. Reason homebound: shortness of breath with minimal effort Certification: Based on the above findings, I certify that this patient is confined to the home and needs intermittent custodial care, physical therapy and/or speech therapy, or continues to need occupational therapy. The patient is under my care, and I have initiated the establishment of the plan of care. The patient will be followed by a physician who will periodically review the plan of care. Time Spent With Patient Time: Total time managing care of this patient today ____ minutes.
--- NOTE | 2024-06-02 14:08 | MHC.CM.PN ---
Addendum entered by Melissa Cartwright 06/02/24 14:37: [facility] has accepted pt and will provide home care services. Original Note: Second IMM 06/02/24, PT rec STR for pt, but pt said she is going home. CM discussed VNA services, and she is in agreement, referral out for VNA. Pt said that her dtr will come get her and can assist her at home, she is a [employer].
== END 2024-06-02 16:09 | disposition home health service (06) | DRG 293 ==
LOC: HO.ED 15:37 → HO.EDOVER 17:04 → HO.IMC 19:04
PROVIDERS: Hospitalist; Physician Assistant Medical; Admitting Provider Nurse Practitioner Acute Care; Emergency Provider Emergency Medicine Emergency Medical Services; PCP Student in an Organized Health Care Education/Training Program; Visit Provider Family Medicine
DX: I50.33 Acute on chronic diastolic (congestive) heart failure (principal); E11.9 Type 2 diabetes mellitus without complications; I25.10 Atherosclerotic heart disease of native coronary artery without angina pectoris; E87.5 Hyperkalemia; I35.0 Nonrheumatic aortic (valve) stenosis; M79.18 Myalgia, other site; I27.23 Pulmonary hypertension due to lung diseases and hypoxia; K21.9 Gastro-esophageal reflux disease without esophagitis; J44.9 Chronic obstructive pulmonary disease, unspecified; E66.8 Other obesity; Z20.822 Contact with and (suspected) exposure to COVID-19; Z68.37 Body mass index [BMI] 37.0-37.9, adult; Z87.891 Personal history of nicotine dependence; Z95.5 Presence of coronary angioplasty implant and graft; Z79.51 Long term (current) use of inhaled steroids; Z79.82 Long term (current) use of aspirin; Z79.84 Long term (current) use of oral hypoglycemic drugs; Z79.899 Other long term (current) drug therapy
CPT/HCPCS: 0241U; 36415; 71045; 71250; 80048; 80053; 81001; 82947; 83605; 83735; 83880; 84484; 85025; 85610; 85730; 87040; 87086; 93005; 94640; 97162; 99285; J0696; J1644; J1940; J2405; J2919

== ENCOUNTER → 2024-05-29 16:56 | Outpatient (BNV) | payer MEDICARE, SELFPAY | PROVIDERS: Admitting Provider Nurse Practitioner Acute Care; Emergency Provider Emergency Medicine Emergency Medical Services; PCP Student in an Organized Health Care Education/Training Program; Visit Provider Nurse Practitioner Acute Care | DX: J18.9 Pneumonia, unspecified organism (principal); J96.01 Acute respiratory failure with hypoxia; I27.20 Pulmonary hypertension, unspecified; E87.5 Hyperkalemia | CPT/HCPCS: 99223; 99232; 99233; 99239; G0180 ==

== ENCOUNTER → 2024-05-29 16:56 | Outpatient (BNV) | payer MEDICARE, SELFPAY | PROVIDERS: Admitting Provider Nurse Practitioner Acute Care; Emergency Provider Emergency Medicine Emergency Medical Services; PCP Student in an Organized Health Care Education/Training Program; Visit Provider Internal Medicine Pulmonary Disease | DX: J96.01 Acute respiratory failure with hypoxia (principal); I50.9 Heart failure, unspecified; J44.9 Chronic obstructive pulmonary disease, unspecified | CPT/HCPCS: 99222 ==

== ENCOUNTER → 2024-05-29 16:56 | Outpatient (BNV) | payer MEDICARE, SELFPAY | PROVIDERS: Admitting Provider Nurse Practitioner Acute Care; Emergency Provider Emergency Medicine Emergency Medical Services; PCP Student in an Organized Health Care Education/Training Program; Visit Provider Internal Medicine | DX: J96.01 Acute respiratory failure with hypoxia (principal); I27.20 Pulmonary hypertension, unspecified | CPT/HCPCS: 99223; 99233 ==

== ENCOUNTER → 2024-06-20 23:59 | Outpatient (BNV) | payer MEDICARE, SELFPAY | PROVIDERS: PCP Student in an Organized Health Care Education/Training Program; Visit Provider Internal Medicine Cardiovascular Disease | DX: Z95.5 Presence of coronary angioplasty implant and graft (principal); I50.30 Unspecified diastolic (congestive) heart failure | CPT/HCPCS: 93456; 99152 ==

== ENCOUNTER 2024-06-30 09:56 | Outpatient (REF) | payer MEDICARE, SELFPAY ==
--- NOTE | ~2024-06-30 | MM_ITS ---
EXAMINATION: MM SCREENING DIGITAL BREAST TOMOSYNTHESIS, BILATERAL CLINICAL INFORMATION: Screening. Asymptomatic. COMPARISON: Mammography: Comparison is made with available priors TECHNIQUE: Digital breast mammography with tomosynthesis is performed in both the craniocaudal and mediolateral oblique views along with computer-aided detection (CAD). FINDINGS: There are scattered areas of fibroglandular density (ACR BI-RADS breast composition Category b). There are no significant masses, abnormal calcifications, or other abnormalities. MM/MM tomosynthesis screening BI IMPRESSION: No mammographic evidence of malignancy. ASSESSMENT: BI-RADS BI-RADS 1 - Negative RECOMMENDATION: Routine annual mammography screening. 1 year F/U This examination should not preclude the clinical evaluation of a suspicious palpable abnormality. This patient's information was entered into a reminder system with a target due date for their next mammogram. Electronically signed by: Louise Coello DO 07/11/2024 08:47 AM [facility]
== END 2024-06-30 09:57 | disposition home or self-care (01) ==
LOC: HO.MAMMO 09:56
PROVIDERS: PCP Student in an Organized Health Care Education/Training Program; Visit Provider Student in an Organized Health Care Education/Training Program
DX: Z12.31 Encounter for screening mammogram for malignant neoplasm of breast (principal)
CPT/HCPCS: 77063; 77067

== ENCOUNTER → 2024-06-30 10:00 | Outpatient (BNV) | payer MEDICARE, SELFPAY | PROVIDERS: PCP Student in an Organized Health Care Education/Training Program; Visit Provider Internal Medicine | DX: Z12.31 Encounter for screening mammogram for malignant neoplasm of breast (principal) | CPT/HCPCS: 77063; 77067 ==

== ENCOUNTER 2024-07-13 12:58 | Outpatient (AMB) | payer MEDICARE, SELFPAY ==
[2024-07-13 13:00] VITALS: BP 128/62; PULSE 72; BMI 38.7
--- NOTE | 2024-07-13 13:00 | A.OFFVIS_ITS ---
Vital Signs 07/13/24 13:00 Height 5 ft 1 in Weight 205 lb 0.478 oz BMI 38.7 BP 128/62 Blood Pressure Location Lt brachial Position Sitting Pulse 72 Pulse Source Pulse Oximeter Intake Visit Reasons: Follow up post cardiac cath Allergies amoxicillin Allergy (Verified 05/29/24 13:02) Difficulty Breathing levofloxacin [From Levaquin] Adverse Reaction (Intermediate, Verified 05/29/24 13:02) Muscle Pain Pain Med Sensitivity Allergy (Unknown, Uncoded 03/11/22 15:13) none Medication List - Last Reconciled 07/13/24 by Bunny Florez MD aspirin 81 mg PO DAILY atorvastatin 80 mg PO BEDTIME calcium carbonate 1 tab PO DAILY cyanocobalamin (vitamin B-12) 1 tab PO DAILY ergocalciferol (vitamin D2) 1,250 mcg PO [place] evolocumab (Repatha SureClick) 140 mg subcut Q2W 90 days ezetimibe 10 mg PO DAILY ferrous sulfate 1 tab PO BID [id number]-[id number]-eaixxwqj 200-62.5-25 mcg (Trelegy Ellipta) 1 ea PO DAILY glipizide 5 mg PO DAILY ibuprofen 600 mg PO Q8H PRN 10 days ipratropium-albuterol 0.5 mg-3 mg(2.5 mg base)/3 mL 3 mL inhalation Q4-6H PRN ipratropium-albuterol 20-100 mcg/actuation (Combivent Respimat) 1 puff inhalation Q4H 30 days isosorbide mononitrate ER 30 mg PO DAILY magnesium oxide 400 mg PO BID metformin 1,000 mg PO BID metoprolol succinate ER (Toprol XL) 25 mg PO DAILY nitroglycerin 1 tab sublingual NEEDED PRN oxybutynin chloride ER 1 tab PO DAILY@1200 pantoprazole 40 mg PO BID sertraline 1 tab PO BEDTIME tramadol 50 mg PO Q12H PRN trazodone 1 tab PO BEDTIME walker Folding Front wheeled walker HPI Comments Details: Deedee comes for follow-up after recent right heart catheterization for pulmonary hypertension. This showed [id number] pulmonary hypertension with mean pulmonary artery pressures of 32 mm Hg with normal cardiac index with PVR of 3.5 with a wedge pressure 15. There is suggestion of related to chronic pulmonary disease as well as possible diastolic dysfunction. Clinically she is currently not having any heart failure symptoms. Denies any leg edema, abdominal distension. Continues to exertional shortness of breath uses oxygen all the time. No exertional chest pain. No lightheadedness, syncope. Takes all her medications. Currently on steroid therapy. [facility] [place] Medical History (Updated 07/13/24 @ 13:15 by Bunny Florez MD) Pulmonary hypertension Acute exacerbation of congestive heart failure Acute respiratory failure with hypoxia Pneumonia Hyperlipidemia Asthma-COPD overlap syndrome MRSA (methicillin resistant Staphylococcus aureus) Anxiety and depression History of blood transfusion Myocardial infarct Diarrhea Arthritis Diabetes GERD (gastroesophageal reflux disease) Coronary artery disease Surgical History Hx of colonoscopy Hx of tonsillectomy Hx of cholecystectomy H/O: hysterectomy History of total right knee replacement (TKR) History of cardiac catheterization Family History Father Colon cancer Social History Household Members: None Housing: Apartment Are you a primary palliative care physician to a significant other at home: No Do you presently have visiting nurse or other home services: Yes Unable to assess alcohol history related to: Unable to respond Alcohol intake: unknown Patient Tobacco Use Status: Former Tobacco user Tobacco use type: Cigarette Years Smoked: 40 Second Hand Smoke Exposure: No Advance Directives Date on File: 12/25/21 service: No Current occupational status: retired Review of Systems Const Denies weakness ENT Denies dizziness Card Denies chest pain, Denies chest pain with activity, Denies syncope, Denies rapid heart rate, Denies pedal edema, Denies edema, Denies leg edema, Denies lightheadedness, Denies palpitations, Denies dyspnea, Denies dyspnea on exertion and Denies orthopnea Resp Denies cough, Denies dyspnea and Denies dyspnea on exertion GI Denies hematochezia and Denies change in stool character Musc Denies abnormal gait, Denies muscle cramps, Denies muscle weakness, Denies numbness, Denies radiating pain into limb and Denies tingling Neuro Denies Abnormal speech present, Denies abnormal gait, Denies dizziness, Denies syncope, Denies numbness, Denies tingling and Denies weakness Endo Denies palpitations Physical Exam Vital Signs: Last Vital Signs Pulse 72 07/13/24 13:00 BP 128/62 07/13/24 13:00 BMI result Body Mass Index 38.7 Const General: cooperative, comfortable, no acute distress, alert and awake Nutritional Appearance: obese morbidly obese Orientation/consciousness: patient oriented x3 Limitations: ambulation with walker HEENT Head: Yes normocephalic and Yes atraumatic Neck Neck: Yes trachea midline, Yes supple and Yes no JVD Resp Effort & Inspection: normal respiratory effort Auscultation: clear to auscultation bilaterally and diminished lung sounds Cardio Jugular venous distension: no JVD Palpation: normal PMI Rate: regular rate Rhythm: regular rhythm Heart sounds: S1 normal heart sound present, S2 normal heart sound present, no click, no gallops and no murmurs GI Auscultation: normal bowel sounds Skin General skin exam: no rashes or lesions noted Neuro General: patient oriented x3 and no focal motor deficits Speech: No Abnormal speech present Extrem General: Yes no clubbing, cyanosis or edema Assessment & Plan Assessment & Plan (1) Coronary artery disease: Comment: s/p stent 2012 Code(s): I25.10 - Atherosclerotic heart disease of [place] coronary artery without angina pectoris Category: Medical Plan: CAD with remote stenting of the LAD with no recurrent obstructive disease at this point time. Continue anginal symptoms. Continue lifelong aspirin therapy. Continue high-intensity statin therapy along with Repatha therapy. Also on ezetimibe therapy. Target goal LDL closer to 60 mg/dL. Continue aggressive risk factor modification. Continue current isosorbide therapy. Blood pressure on today's exam is well optimized advised to monitor blood pressure at home maintain a log. Aggressive diabetes control goal hemoglobin A1c less than 7% was discussed. Encouraged to continue to participate in physical activity as tolerated. (2) Pulmonary hypertension: Code(s): I27.20 - Pulmonary hypertension, unspecified Category: Medical Plan: Pulmonary hypertension which is [id number] in severity related to most likely pulmonary parenchymal disease and chronic hypoxemic respiratory failure. Also possibly some component of LV diastolic dysfunction. Clinically without any signs of heart failure. She is at risk for developing heart failure syndrome this was discussed with her. We discussed management. Will prescribe a Lasix p.r.n. as need be. Otherwise continue aggressive pulmonary treatment and continue chronic oxygen therapy. Encouraged to maintain activity level as tolerated. Continue participate in aggressive blood pressure control. Low-salt diet was discussed. Daily weight monitoring was discussed. Follow up in the clinic in 6 months time, sooner p.r.n.. Thank you for allowing me to partake in her care Coding Level of Care Code Est Pt Level 4 (38763) Complex EM visit Add On G2211 Diagnoses Coronary artery disease I25.10 Pulmonary hypertension I27.20
== END 2024-07-13 13:14 | disposition home or self-care (01) ==
LOC: HO.HCS 12:59
PROVIDERS: PCP Student in an Organized Health Care Education/Training Program; Visit Provider Internal Medicine Cardiovascular Disease
DX: I25.10 Atherosclerotic heart disease of native coronary artery without angina pectoris (principal); I27.20 Pulmonary hypertension, unspecified
CPT/HCPCS: 99214; G2211

== ENCOUNTER → 2024-07-13 12:58 | Outpatient (BNVA) | payer MEDICARE, SELFPAY | PROVIDERS: PCP Student in an Organized Health Care Education/Training Program; Visit Provider Internal Medicine Cardiovascular Disease | DX: I27.20 Pulmonary hypertension, unspecified (principal); I25.10 Atherosclerotic heart disease of native coronary artery without angina pectoris; Z98.890 Other specified postprocedural states; Z99.81 Dependence on supplemental oxygen | CPT/HCPCS: 99212 ==

== ENCOUNTER 2024-07-28 10:35 | Outpatient (AMB) | payer MEDICARE, SELFPAY ==
[2024-07-28 10:39] VITALS: BP 126/60; PULSE 73; O2SAT 93
--- NOTE | 2024-07-28 10:39 | MHC.OFFVIS ---
Vital Signs 07/28/24 10:39 Weight 207 lb 3.752 oz BP 126/60 Blood Pressure Location Lt brachial Position Sitting Pulse 73 Pulse Source Pulse Oximeter Pulse Oximetry (%) 93 Oxygen Delivery Method Nasal Cannula Oxygen Flow Rate 2 Intake Visit Reasons: COPD Allergies amoxicillin Allergy (Verified 07/28/24 10:46) Difficulty Breathing levofloxacin [From Levaquin] Adverse Reaction (Intermediate, Verified 07/28/24 10:46) Muscle Pain Pain Med Sensitivity Allergy (Unknown, Uncoded 07/28/24 10:46) none Medication List - Last Reconciled 07/28/24 by Leticia Camargo LPN aspirin 81 mg PO DAILY atorvastatin 80 mg PO BEDTIME calcium carbonate 1 tab PO DAILY cyanocobalamin (vitamin B-12) 1 tab PO DAILY ergocalciferol (vitamin D2) 1,250 mcg PO [place] evolocumab (Repatha SureClick) 140 mg subcut Q2W 90 days ezetimibe 10 mg PO DAILY ferrous sulfate 1 tab PO BID [id number]-hddrwqdpt-kycgqlew 200-62.5-25 mcg (Trelegy Ellipta) 1 ea PO DAILY furosemide (Lasix) 20 mg PO DAILY PRN glipizide 5 mg PO DAILY ibuprofen 600 mg PO Q8H PRN 10 days ipratropium-albuterol 0.5 mg-3 mg(2.5 mg base)/3 mL 3 mL inhalation Q4-6H PRN ipratropium-albuterol 20-100 mcg/actuation (Combivent Respimat) 1 puff inhalation Q4H 30 days isosorbide mononitrate ER 30 mg PO DAILY magnesium oxide 400 mg PO BID metformin 1,000 mg PO BID metoprolol succinate ER (Toprol XL) 25 mg PO DAILY nitroglycerin 1 tab sublingual NEEDED PRN oxybutynin chloride ER 1 tab PO DAILY@1200 pantoprazole 40 mg PO BID sertraline 1 tab PO BEDTIME tramadol 50 mg PO Q12H PRN trazodone 1 tab PO BEDTIME walker Folding Front wheeled walker HPI HPI COPD: Details: 74-year-old lady, former 40+ pack-year smoker, quit 2013, with prior admission to [facility] for heart failure exacerbation, acute kidney injury requiring brief ventilatory support, now admitted on 05/29/2024 with worsening dyspnea, but no cough or sputum production. CT chest with no evidence of infiltrates. Patient does have recent 2D echocardiogram showing increased right ventricular systolic pressures and vena cava distention. After the last office visit patient had right-sided heart catheterization showing slightly elevated wedge and moderate pulmonary hypertension. Also, her dyspnea is slowly worsening. [facility] Medical History (Updated 07/28/24 @ 13:07 by Aneudy Copeland MD) Asthma-COPD overlap syndrome Pulmonary hypertension Acute exacerbation of congestive heart failure Acute respiratory failure with hypoxia Pneumonia Hyperlipidemia MRSA (methicillin resistant Staphylococcus aureus) Anxiety and depression History of blood transfusion Myocardial infarct Diarrhea Arthritis Diabetes GERD (gastroesophageal reflux disease) Coronary artery disease Surgical History Hx of colonoscopy Hx of tonsillectomy Hx of cholecystectomy H/O: hysterectomy History of total right knee replacement (TKR) History of cardiac catheterization Family History Father Colon cancer Social History Household Members: None Housing: Apartment Are you a primary post anesthesia care unit nurse to a significant other at home: No Do you presently have visiting nurse or other home services: Yes Unable to assess alcohol history related to: Unable to respond Alcohol intake: unknown Patient Tobacco Use Status: Former Tobacco user Tobacco use type: Cigarette Years Smoked: 40 Second Hand Smoke Exposure: No Advance Directives Date on File: 12/25/21 service: No Current occupational status: retired Review of Systems Const Denies daytime sleepiness, Denies excessive sweating, Denies fatigue, Denies fever(s), Denies lethargy, Denies malaise, Denies night sweats, Denies snoring and Denies weight loss Eyes Denies blurry vision and Denies itchy eyes ENT Denies nasal congestion, Denies post nasal drip, Denies sinus pain, Denies sinus pressure and Denies other ( Thrush) Card Denies chest pain, Denies pedal edema, Denies dyspnea, Reports dyspnea on exertion, Denies orthopnea and Denies paroxysmal nocturnal dyspnea Resp Denies cough, Denies hemoptysis, Denies excessive phlegm production, Denies dyspnea, Reports dyspnea on exertion, Denies snoring and Denies wheezing GI Denies abdominal pain and Denies heartburn Musc Denies myalgias, Denies arthralgias and Denies joint swelling Skin/Breast Denies rash Neuro Denies memory loss and Denies seizure-like activity Psych Denies abnormal sleep pattern, Denies anxiety and Denies memory loss Endo Denies excessive sweating, Denies fatigue and Denies heat intolerance Zenon/Lymph Denies easy bruising Aller/Immun Denies itchy eyes, Denies seasonal rhinorrhea and Denies wheezing Physical Exam Vital Signs: Last Vital Signs Pulse 73 07/28/24 10:39 BP 126/60 07/28/24 10:39 Pulse Ox 93 07/28/24 10:39 Oxygen Delivery Method Nasal Cannula 07/28/24 10:39 Oxygen Flow Rate 2 07/28/24 10:39 Const General: no acute distress and alert Nutritional Appearance: not obese Orientation/consciousness: Other orientation findings ( oriented) HEENT Head: Yes atraumatic Eyes General: appearance normal, both eyes and all related structures Sclerae: sclerae normal EOM: EOMs intact bilaterally Neck Neck: Yes supple Lymphatic: no lymphadenopathy noted Resp Effort & Inspection: normal respiratory effort and no use of accessory muscles Auscultation: clear to auscultation bilaterally Cardio Rate: regular rate Rhythm: regular rhythm Heart sounds: no gallops, no murmurs and no rubs Skin General skin exam: other ( warm) Extrem General: No clubbing, No cyanosis and No edema Assessment & Plan Assessment & Plan (1) Asthma-COPD overlap syndrome: Code(s): J44.9 - Chronic obstructive pulmonary disease, unspecified Category: Medical Plan: Suboptimal control on Trelegy, duo nebs, and Combivent. Will add theophylline. (2) Supplemental oxygen dependent: Code(s): Z99.81 - Dependence on supplemental oxygen Category: Medical Plan: 6 minute walk test/supplemental oxygen evaluation performed. Patient now requires supplemental oxygen 2 L at rest and 4 L with exertion to maintain normal oximetry. Updated order placed. (3) Personal history of nicotine dependence: Code(s): Z87.891 - Personal history of nicotine dependence Category: Medical Plan: Lung cancer screening CT chest is pending for and end of this month. (4) Pulmonary hypertension: Code(s): I27.20 - Pulmonary hypertension, unspecified Category: Medical Plan: Right heart catheterization with mildly elevated pulmonary wedge and moderate pulmonary hypertension. Likely secondary to underlying COPD. If no significant improvement with theophylline, may consider vasodilatory therapy. Coding Level of Care Code Est Pt Level 4 (94067) Complex EM visit Add On G2211 Diagnoses Asthma-COPD overlap syndrome J44.9 Supplemental oxygen dependent Z99.81 Personal history of nicotine dependence Z87.891 Pulmonary hypertension I27.20
== END 2024-07-28 11:16 | disposition home or self-care (01) ==
PROVIDERS: PCP Student in an Organized Health Care Education/Training Program; Visit Provider Internal Medicine Pulmonary Disease
DX: J44.9 Chronic obstructive pulmonary disease, unspecified (principal); Z99.81 Dependence on supplemental oxygen; Z87.891 Personal history of nicotine dependence; I27.20 Pulmonary hypertension, unspecified
CPT/HCPCS: 99214; G2211

== ENCOUNTER → 2024-07-28 10:35 | Outpatient (BNVA) | payer MEDICARE, SELFPAY | PROVIDERS: PCP Student in an Organized Health Care Education/Training Program; Visit Provider Internal Medicine Pulmonary Disease | DX: J44.89 Other specified chronic obstructive pulmonary disease (principal); I27.20 Pulmonary hypertension, unspecified; Z87.891 Personal history of nicotine dependence; Z99.81 Dependence on supplemental oxygen | CPT/HCPCS: 99212 ==

== ENCOUNTER 2024-08-01 08:09 | Outpatient (REF) | payer MEDICARE, SELFPAY | END 2024-08-01 08:10 | disposition home or self-care (01) | LOC: HO.CT 08:09 | PROVIDERS: PCP Student in an Organized Health Care Education/Training Program; Visit Provider Internal Medicine Pulmonary Disease | DX: Z12.2 Encounter for screening for malignant neoplasm of respiratory organs (principal); Z87.891 Personal history of nicotine dependence | CPT/HCPCS: 71271 ==

== ENCOUNTER → 2024-08-01 08:11 | Outpatient (BNV) | payer MEDICARE, SELFPAY | PROVIDERS: PCP Student in an Organized Health Care Education/Training Program; Visit Provider Radiology Diagnostic Radiology | DX: Z87.891 Personal history of nicotine dependence (principal) | CPT/HCPCS: 71271 ==

== ENCOUNTER 2024-08-11 10:18 | Outpatient (REF) | payer MEDICARE, SELFPAY ==
[2024-08-11 14:42] LABS: Alanine Aminotransferase 11 U/L (0-31); Albumin Level 3.9 g/dL (3.5-5.0); Alkaline Phosphatase 88 U/L (39-117); Anion Gap 14 (12-20); Aspartate Amino Transferase 24 U/L (5-31); Bilirubin Direct 0.2 mg/dL (0.0-0.5); Bilirubin Total 0.3 mg/dL (0.0-1.0); Blood Urea Nitrogen 24 mg/dL (9-16); Calcium 9.7 mg/dL (8.4-10.2); Carbon Dioxide 25 mmol/L (22-29); Chloride 107 mmol/L (96-108); Cholesterol 66 mg/dL (<200); Estimated Glomerular Filt Rate 57; Glucose Random 146 mg/dL (60-115); HDL Cholesterol 31 mg/dL (>40); LDL Cholesterol Calculated 12 mg/dL (<100); Potassium 4.5 mmol/L (3.3-5.1); Sodium 141 mmol/L (135-145); Total Protein 6.6 g/dL (6.5-8.0); Triglycerides 119 mg/dL (<150)
== END 2024-08-11 10:19 | disposition home or self-care (01) ==
LOC: HO.CHCLDS 10:18
PROVIDERS: Visit Provider Student in an Organized Health Care Education/Training Program
DX: E11.9 Type 2 diabetes mellitus without complications (principal)
CPT/HCPCS: 36415; 80048; 80061; 80076

== ENCOUNTER 2024-08-23 09:45 | Outpatient (AMB) | payer MEDICARE, SELFPAY ==
[2024-08-23 09:46] VITALS: BP 134/57; PULSE 78; O2SAT 91; BMI 38.2
--- NOTE | 2024-08-23 09:46 | A.OFFVIS_ITS ---
Vital Signs 08/23/24 09:46 Height 5 ft 1 in Weight 202 lb BMI 38.2 BP 134/57 L Blood Pressure Location Rt brachial Position Sitting Pulse 78 Pulse Source Doppler Pulse Oximetry (%) 91 L Oxygen Delivery Method Nasal Cannula Oxygen Flow Rate 3 Intake Visit Reasons: COPD Allergies amoxicillin Allergy (Verified 07/28/24 10:46) Difficulty Breathing levofloxacin [From Levaquin] Adverse Reaction (Intermediate, Verified 07/28/24 10:46) Muscle Pain Pain Med Sensitivity Allergy (Unknown, Uncoded 07/28/24 10:46) none HPI HPI COPD: Details: 74-year-old lady, former 40+ pack-year smoker, quit 2013, now followed for environmental allergies and asthma/COPD overlap syndrome.? She tried Xolair, but it was discontinued secondary to not having any symptomatic benefit. She continues to use Trelegy, theophylline and albuterol MDI with good based control of her asthma/COPD overlap symptoms and as needed loratadine and Dymista with allergic component. She requires supplemental oxygen at 2 L with rest and 4 L with exertion. [facility] Medical History (Updated 07/28/24 @ 13:07 by Aneudy Copeland MD) Asthma-COPD overlap syndrome Pulmonary hypertension Acute exacerbation of congestive heart failure Acute respiratory failure with hypoxia Pneumonia Hyperlipidemia MRSA (methicillin resistant Staphylococcus aureus) Anxiety and depression History of blood transfusion Myocardial infarct Diarrhea Arthritis Diabetes GERD (gastroesophageal reflux disease) Coronary artery disease Surgical History Hx of colonoscopy Hx of tonsillectomy Hx of cholecystectomy H/O: hysterectomy History of total right knee replacement (TKR) History of cardiac catheterization Family History Father Colon cancer Social History Household Members: None Housing: Apartment Are you a primary child caregiver private home to a significant other at home: No Do you presently have visiting nurse or other home services: Yes Unable to assess alcohol history related to: Unable to respond Alcohol intake: unknown Patient Tobacco Use Status: Former Tobacco user Tobacco use type: Cigarette Years Smoked: 40 Second Hand Smoke Exposure: No Advance Directives Date on File: 12/25/21 service: No Current occupational status: retired Review of Systems Const Denies daytime sleepiness, Denies excessive sweating, Denies fatigue, Denies fever(s), Denies lethargy, Denies malaise, Denies night sweats, Denies snoring and Denies weight loss Eyes Denies blurry vision and Denies itchy eyes ENT Denies nasal congestion, Denies post nasal drip, Denies sinus pain, Denies sinus pressure and Denies other ( Thrush) Card Denies chest pain, Denies pedal edema, Denies dyspnea, Denies orthopnea and Denies paroxysmal nocturnal dyspnea Resp Denies cough, Denies hemoptysis, Denies excessive phlegm production, Denies dyspnea, Denies snoring and Denies wheezing GI Denies abdominal pain and Denies heartburn Musc Denies myalgias, Denies arthralgias and Denies joint swelling Skin/Breast Denies rash Neuro Denies memory loss and Denies seizure-like activity Psych Denies abnormal sleep pattern, Denies anxiety and Denies memory loss Endo Denies excessive sweating, Denies fatigue and Denies heat intolerance Zenon/Lymph Denies easy bruising Aller/Immun Denies itchy eyes, Denies seasonal rhinorrhea and Denies wheezing Physical Exam Vital Signs: Last Vital Signs Pulse 78 08/23/24 09:46 BP 134/57 L 08/23/24 09:46 Pulse Ox 91 L 08/23/24 09:46 Oxygen Delivery Method Nasal Cannula 08/23/24 09:46 Oxygen Flow Rate 3 08/23/24 09:46 BMI result Body Mass Index 38.2 Const General: no acute distress and alert Nutritional Appearance: obese Orientation/consciousness: Other orientation findings ( oriented) HEENT Head: Yes atraumatic Eyes General: appearance normal, both eyes and all related structures Sclerae: sclerae normal EOM: EOMs intact bilaterally Neck Neck: Yes supple Lymphatic: no lymphadenopathy noted Resp Effort & Inspection: normal respiratory effort and no use of accessory muscles Auscultation: clear to auscultation bilaterally Cardio Rate: regular rate Rhythm: regular rhythm Heart sounds: no gallops, no murmurs and no rubs Skin General skin exam: other ( warm) Extrem General: No clubbing, No cyanosis and No edema Assessment & Plan Assessment & Plan (1) Asthma-COPD overlap syndrome: Code(s): J44.9 - Chronic obstructive pulmonary disease, unspecified Category: Medical Plan: Now well controlled on current regimen of trilogy, duo nebs, and Combivent. Continue current regimen. (2) Personal history of nicotine dependence: Code(s): Z87.891 - Personal history of nicotine dependence Category: Medical Plan: Results of lung cancer screening CT chest not available for this visit, on my review no worrisome nodules. Continue with yearly screening, next in July of 2025. (3) Supplemental oxygen dependent: Code(s): Z99.81 - Dependence on supplemental oxygen Category: Medical Plan: Continue supplemental oxygen to maintain O2 saturation of 88-93%. Coding Level of Care Code Est Pt Level 4 (05869) Diagnoses Asthma-COPD overlap syndrome J44.9 Personal history of nicotine dependence Z87.891 Supplemental oxygen dependent Z99.81
== END 2024-08-23 09:59 | disposition home or self-care (01) ==
PROVIDERS: PCP Student in an Organized Health Care Education/Training Program; Visit Provider Internal Medicine Pulmonary Disease
DX: J44.9 Chronic obstructive pulmonary disease, unspecified (principal); Z87.891 Personal history of nicotine dependence; Z99.81 Dependence on supplemental oxygen
CPT/HCPCS: 99214

== ENCOUNTER → 2024-08-23 09:45 | Outpatient (BNVA) | payer MEDICARE, SELFPAY | PROVIDERS: PCP Student in an Organized Health Care Education/Training Program; Visit Provider Internal Medicine Pulmonary Disease | DX: J44.9 Chronic obstructive pulmonary disease, unspecified (principal); Z87.891 Personal history of nicotine dependence; Z99.81 Dependence on supplemental oxygen | CPT/HCPCS: 99212 ==

== ENCOUNTER 2024-09-08 10:12 | Outpatient (AMB) | payer MEDICARE, SELFPAY ==
[2024-09-08 10:13] VITALS: BP 138/67; PULSE 85; O2SAT 89; BMI 37.9
--- NOTE | 2024-09-08 10:13 | MHC.OFFVIS ---
Vital Signs 09/08/24 10:13 Height 5 ft 1 in Weight 200 lb 9.93 oz BMI 37.9 BP 138/67 Blood Pressure Location Lt brachial Position Sitting Pulse 85 Pulse Source Doppler Pulse Oximetry (%) 89 L Oxygen Delivery Method Nasal Cannula Oxygen Flow Rate 2 Intake Visit Reasons: Ongoing cough and congestion Allergies amoxicillin Allergy (Verified 07/28/24 10:46) Difficulty Breathing levofloxacin [From Levaquin] Adverse Reaction (Intermediate, Verified 07/28/24 10:46) Muscle Pain Pain Med Sensitivity Allergy (Unknown, Uncoded 07/28/24 10:46) none HPI HPI Ongoing cough and congestion: Details: 74-year-old lady, former 40+ pack-year smoker, quit 2013, now followed for environmental allergies and asthma/COPD overlap syndrome.? She tried Xolair, but it was discontinued secondary to not having any symptomatic benefit. She continues to use Trelegy, theophylline and albuterol MDI with good based control of her asthma/COPD overlap symptoms and as needed loratadine and Dymista with allergic component. She requires supplemental oxygen at 2 L with rest and 4 L with exertion. Today she has complain of a bronchitic exacerbation with a poor response to initial Z-Brady. [facility] Medical History (Updated 09/08/24 @ 09:06 by Rachel Pearson PA-C) Supplemental oxygen dependent Personal history of nicotine dependence Asthma-COPD overlap syndrome Pulmonary hypertension Acute exacerbation of congestive heart failure Acute respiratory failure with hypoxia Pneumonia Hyperlipidemia MRSA (methicillin resistant Staphylococcus aureus) Anxiety and depression History of blood transfusion Myocardial infarct Diarrhea Arthritis Diabetes GERD (gastroesophageal reflux disease) Coronary artery disease Surgical History Hx of colonoscopy Hx of tonsillectomy Hx of cholecystectomy H/O: hysterectomy History of total right knee replacement (TKR) History of cardiac catheterization Family History Father Colon cancer Social History Household Members: None Housing: Apartment Are you a primary managed care nurse to a significant other at home: No Do you presently have visiting nurse or other home services: Yes Unable to assess alcohol history related to: Unable to respond Alcohol intake: unknown Patient Tobacco Use Status: Former Tobacco user Tobacco use type: Cigarette Years Smoked: 40 Second Hand Smoke Exposure: No Advance Directives Date on File: 12/25/21 service: No Current occupational status: retired Review of Systems Const Denies daytime sleepiness, Denies excessive sweating, Denies fatigue, Denies fever(s), Denies lethargy, Denies malaise, Denies night sweats, Denies snoring and Denies weight loss Eyes Denies blurry vision and Denies itchy eyes ENT Denies nasal congestion, Denies post nasal drip, Denies sinus pain, Denies sinus pressure and Denies other ( Thrush) Card Denies chest pain, Denies pedal edema, Denies dyspnea, Denies orthopnea and Denies paroxysmal nocturnal dyspnea Resp Reports cough, Denies hemoptysis, Reports excessive phlegm production, Denies dyspnea, Denies snoring and Denies wheezing GI Denies abdominal pain and Denies heartburn Musc Denies myalgias, Denies arthralgias and Denies joint swelling Skin/Breast Denies rash Neuro Denies memory loss and Denies seizure-like activity Psych Denies abnormal sleep pattern, Denies anxiety and Denies memory loss Endo Denies excessive sweating, Denies fatigue and Denies heat intolerance Zenon/Lymph Denies easy bruising Aller/Immun Denies itchy eyes, Denies seasonal rhinorrhea and Denies wheezing Physical Exam Vital Signs: Last Vital Signs Pulse 85 09/08/24 10:13 BP 138/67 09/08/24 10:13 Pulse Ox 89 L 09/08/24 10:13 Oxygen Delivery Method Nasal Cannula 09/08/24 10:13 Oxygen Flow Rate 2 09/08/24 10:13 BMI result Body Mass Index 37.9 Const General: no acute distress and alert Nutritional Appearance: obese Orientation/consciousness: Other orientation findings ( oriented) HEENT Head: Yes atraumatic Eyes General: appearance normal, both eyes and all related structures Sclerae: sclerae normal EOM: EOMs intact bilaterally Neck Neck: Yes supple Lymphatic: no lymphadenopathy noted Resp Effort & Inspection: normal respiratory effort and no use of accessory muscles Auscultation: clear to auscultation bilaterally Cardio Rate: regular rate Rhythm: regular rhythm Heart sounds: no gallops, no murmurs and no rubs Skin General skin exam: other ( warm) Extrem General: No clubbing, No cyanosis and No edema Assessment & Plan Assessment & Plan (1) Asthma-COPD overlap syndrome: Code(s): J44.9 - Chronic obstructive pulmonary disease, unspecified Category: Medical Plan: Baseline controlled on Trelegy, duo nebs, theophylline, and Combivent. Continue current regimen. (2) Acute bronchitis: Code(s): J20.9 - Acute bronchitis, unspecified Category: Medical Plan: Poor response to initial Z-Brady. Will treat with a course of doxycycline. Patient allergic to penicillins and quinolones. (3) Supplemental oxygen dependent: Code(s): Z99.81 - Dependence on supplemental oxygen Category: Medical Plan: Continue supplemental oxygen to maintain O2 saturation of 88-92%. Medications: New doxycycline monohydrate 100 mg PO BID 20 caps 0RF prednisone 40 mg (2 x 20 mg) PO DAILY 10 tabs 0RF Discontinued azithromycin Discontinued Reason: Doctor's Order For 250 mg dose pack: take 500 mg today (day 1), then 250 mg for 4 days (days 2-5) PO 6 tabs 0RF Coding Level of Care Code Est Pt Level 4 (13819) Complex EM visit Add On G2211 Diagnoses Asthma-COPD overlap syndrome J44.9 Acute bronchitis J20.9 Supplemental oxygen dependent Z99.81
== END 2024-09-08 10:55 | disposition home or self-care (01) ==
PROVIDERS: PCP Student in an Organized Health Care Education/Training Program; Visit Provider Internal Medicine Pulmonary Disease
DX: J44.9 Chronic obstructive pulmonary disease, unspecified (principal); J20.9 Acute bronchitis, unspecified; Z99.81 Dependence on supplemental oxygen
CPT/HCPCS: 99214; G2211

== ENCOUNTER → 2024-09-08 10:12 | Outpatient (BNVA) | payer MEDICARE, SELFPAY | PROVIDERS: PCP Student in an Organized Health Care Education/Training Program; Visit Provider Internal Medicine Pulmonary Disease | DX: J44.9 Chronic obstructive pulmonary disease, unspecified (principal); J20.9 Acute bronchitis, unspecified; Z99.81 Dependence on supplemental oxygen | CPT/HCPCS: 99212 ==

== ENCOUNTER 2024-12-21 09:46 | Outpatient (REF) | payer MEDICARE, SELFPAY ==
--- OUTSIDE RECORDS SUMMARY | 2024-12-21 11:17 | XMS_ITS | Encounter Summary ---
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 Name Role Phone Unavailable Primary Care Provider Unavailabl e Reason for Visit * Reason Comments Med Refill Encounter Details Date Type Department Care Team (Late Contact Info) Description 12/20/2024 Refill [facility] [address] [place] [phone] Alf Mendenhall MD [address] [facility] [address] [place] [phone] Social History Tobacco Use Types Packs/Day Years Used Date Smoking Tobacco: Never Assessed Alcohol Use Standard Drinks/Week Comments Never 0 (1 standard drink = 0.6 oz pur e alcohol) Comments Unknown Sex and Gender Information Value Date Recorded Sex Assigned at Female 01/06/2024 10:27 AM EDT Legal Sex Female 9:20 AM EDT Gender Identity Female 01/06/2024 10:27 AM EDT Sexual Orientation Straight 01/06/2024 10 :27 AM EDT documented as of this encounter Plan of Treatment Upcoming Encounters Date Type Department Care Team ([facility] Contact Info) Description 01/15/2025 1:15 PM EDT Office Visit [facility] [address] [place] [phone] Alf Mendenhall MD [address] [place] [phone] documented as of this encounter Visit Diagnoses Not on filedocumented in this encounter
--- OUTSIDE RECORDS SUMMARY | 2024-12-21 11:17 | XMS_ITS | Encounter Summary ---
Author Organization [facility] Address [address] [place] [address] Phone Care Team Providers Care Conditioner Tumbler Name Role Phone Unavailable Primary Care Provider Unavailabl e Reason for Visit * Reason Comments Med Refill Encounter Details Date Type Department Care Team (Late Contact Info) Description 11/16/2024 [facility]ill [facility] [address] [place] [phone] Alf Mendenhall MD [address] [facility] [address] [place] [address] Social History Tobacco Use Types Packs/Day Years [...] Upcoming Encounters Date Type Department Care Team ([facility] Contact Info) Description 01/15/2025 1:15 PM EDT Office Visit [facility] [address] [place] [phone] Alf Mendenhall MD [address] [address] documented as of this encounter Visit Diagnoses Not on filedocumented in this encounter
--- OUTSIDE RECORDS SUMMARY | 2024-12-21 11:17 | XMS_ITS | Clinical Summary ---
Author Organization [facility] Address [address] [facility] [address] [place] [address] Phone Care Team Providers Care Health And Safety Manager Name Role Phone Unavailable Primary Care Provider Unavailabl e Allergies Active Allergy Reactions Criticality Noted Date Comments Levetiracetam Swelling,Other (see comments) Medications traZODone (DESYREL) 50 MG tablet Take 50 mg by mouth at bed time 2 Active sertraline (ZOLOFT) 50 MG tablet Take 50 mg by mouth at bed time 2 Active pantoprazole (PROTONIX) 40 MG EC tablet Take 40 mg by mouth every morning and evening 2 Active oxybutynin XL (DITROPAN-XL) 10 MG 24 hr tablet TAKE 1 TABLET BY MOUTH EVERYDAY AT NOON 2 Active metoprolol tartrate 25 MG tablet Take 25 mg by mouth 2 Active metFORMIN (GLUCOPHAGE) 1000 MG tablet Take 1,000 mg by mouth every morning and evening 2 Active glipiZIDE (GLUCOTROL) 5 MG tablet 2 Active cyanocobalamin (VITAMIN B-12) 1000 MCG tablet Take 1,000 mcg by mouth 2 Active atorvastatin (LIPITOR) 80 MG tablet Take 80 mg by mouth at bed time 2 Active calcium carbonate-varinder min D (OSCAL-500) 500-200 MG-UNIT per tablet Take 1 tablet by mouth 1 (one) time each day Active traMADol (ULTRAM) 50 MG tablet Take 50 mg by mouth every 6 (six) hours if needed for moderate pain Active Antacid 500 MG chewable tablet CHEW 2 TABLETS BY MOUTH DAILY between MEALS 2 Active albuterol HFA (PROVENTIL HFA;VENTOLIN HFA) 108 (90 Base) MCG/ACT inhaler 2 Active Aspirin Low Dose 81 MG EC tablet Take 81 mg by mouth 2 Active FeroSul 325 (65 Fe) MG tablet Take 1 tablet by mouth every morning and evening 2 Active ergocalciferol 1.25 MG (16567 UT) capsule TAKE 1 CAPSULE BY MOUTH ONCE WEEKLY ON WEDNESDAY MORNING 12 capsule 1 4 Active magnesium oxide 400 (240 Mg) MG tablet TAKE 1 TABLET BY MOUTH TWICE DAILY IN THE MORNING AND IN THE EVENING 60 tablet 3 5 Active magnesium oxide 400 (240 Mg) MG tablet TAKE 1 TABLET BY MOUTH TWICE DAILY IN THE MORNING AND IN THE EVENING 60 tablet 3 4 025 Discontinued Active Problems Problem Noted Date Diagnosed Date Chronic kidney disease, stage 2 (mild) 3 Screening for malignant neoplasm of colon 2022 Melena 01/07/2023 History of adenomatous polyp of colon 01/07/2023 Family history of cancer of colon 01/07/2023 Acute posthemorrhagic anemia 01/07/2023 Hypomagnesemia 04/13/2022 Coronary arteriosclerosis 02/03/2022 Diabetes mellitus 02/03/2022 H/O: depression 02/03/2022 Hypercholesterolemia 02/03/2022 Left ventricular cardiac dysfunction 02/03/2022 Old myocardial infarction 02/03/2022 Severe obesity 02/03/2022 Stage 3b chronic kidney disease 02/03/2022 Type 2 diabetes mellitus wit h diabetic chronic kidney disease 02/03/2022 Renal osteodystrophy 02/03/2022 Acute on chronic diastolic congestive heart fail ure 11/17/2021 Chronic obstructive pulmonar y disease with acute exacerbation 11/17/2021 Aftercare following joint replacement surgery Essential (primary) hypertension 11/14/2021 Gastro-esophageal reflux disease without esophag itis 11/14/2021 Hyperlipidemia 11/14/2021 Major depressive disorder with single episode Presence of left artificial knee joint Type 2 diabetes mellitus without complication Unilateral primary osteoarthritis of left knee 0 11/14/2021 Encounters Date Type Department Care Team Description 12/20/2024 [facility]ill [facility] [address] [facility] [address] [place] [address] Alf Mendenhall MD 11/16/2024 Refill [facility] [address] [facility] [address] [place] [phone] Alf Mendenhall MD from Last 3 Months Immunizations Immunization Administration Dates Next Due Hepatitis B 08/19/2007,02/17/2007,01/17/2007 Influenza Split 11/24/2013,06/10/2012 Influenza, Quadrivalent, Pre servative Free 07/09/2017 Influenza, Quadrivalent, Wit h Preservative 06/14/2019,05/20/2018,07/16/2016,05/27 Influenza, Unspecified 06/30/2022,2020,07/23/2020,06/09,05/20/2018,07/18/2014,06/13/2014 Moderna SARS-COV-2 10/16/2021,12/03/2020, 021 Pneumococcal Conjugate 13-Valent 07/16/2016 Pneumococcal Polysaccharide 07/09/2017, 4 Shingrix 09/11/2022,06/30/2022 Td 12/11/2005 Tdap 11/24/2013 Zoster 05/30/2015 Family History Relation Status Comments Father Mother Social History Tobacco Use Types Packs/Day Years [...] Orientation Straight 01/06/2024 10 :27 AM EDT Last Filed Vital Signs Vital Sign Reading Time Taken Comments Blood Pressure 122/62 01/13/2024 2:08 PM EDT Pulse 73 01/13/2024 2:08 PM EDT Temperature - - Respiratory Rate - - Oxygen Saturation 92% 01/13/2024 2:08 PM EDT Inhaled Oxygen Concentration - - Weight 92.4 kg (203 lb 9.6 oz) 01/13/2024 2:08 P M EDT Height - - Body Mass Index - - Plan of Treatment Upcoming Encounters Date Type Department Care Team (Late st Contact Info) Description 01/15/2025 1:15 PM EDT Office Visit [facility] [address] [place] [phone] Alf Mendenhall MD [address] [facility] [address] [place] [address] Health Maintenance Due Date Last Done Comments Breast Cancer Screening 1951 Colorectal Cancer Screening: Annual FOBT 2000 Colorectal Cancer Screening: Colonoscopy 2000 Colorectal Cancer Screening: Sigmoidoscopy 2000 Diabetes: Ophthalmology Exam 12/26/2021 Diabetes: Pedal Pulse Checked 12/26/2021 Diabetes: Sensory Foot Exam 12/26/2021 Diabetes: Visual Foot Exam 12/26/2021 Diabetes: Hemoglobin A1C 09/08/2024 024, 01/10/2024, 01/10/2024, Additional history exists Hepatitis B Vaccine Aged Out 08/19/2007, 02/17/2007, 01/17/2007 No longer eligible based on patient's age to complete this topic Pneumococcal Vaccine: 50+ Years Completed 07/09/2017, 07/16/2016, 04/02/2014 Influenza Vaccine Completed 06/08/2024, , 07/09/2021, Additional history exists Insurance [facility] Medicare [address] [place] [address] [facility] Medicare
[2024-12-21 11:43] LABS: Anion Gap 15 (12-20); Blood Urea Nitrogen 13 mg/dL (9-16); Calcium 9.4 mg/dL (8.4-10.2); Carbon Dioxide 25 mmol/L (22-29); Chloride 103 mmol/L (96-108); Estimated Glomerular Filt Rate > 60; Potassium 3.9 mmol/L (3.3-5.1); Sodium 139 mmol/L (135-145)
[2024-12-21 11:46] LABS: Appearance Urine Cloudy; Color Urine Yellow; Glucose Urine UA Negative (Negative); Leukocyte Esterase Urine Small (1+) (Negative); Nitrite Urine Positive (Negative); PH 5.5 (5.0-9.0); Specific Gravity - Urine 1.015 (1.005-1.025); UMIC TRIGGER UA YES; Urine Blood Negative (Negative); Urine Ketones Trace mg/dL (Negative); Urine Protein Negative (Neg-Trace)
[2024-12-21 12:09] LABS: Creatinine Urine 135.55 mg/dL; Microalbum/Creatinine Ratio Ur 5.9 ug/mg cr (<30); Total Protein Urine Random < 7 mg/dL (<12)
[2024-12-21 12:54] LABS: RBC Urine 0-2 /HPF (0-2)
[2024-12-21 12:55] LABS: Bacteria Urine 4+ (None Seen); Hyaline Casts Urine 0-2 /LPF (0-2)
== END 2024-12-21 09:47 | disposition home or self-care (01) ==
LOC: HO.LAB 09:46
PROVIDERS: PCP Student in an Organized Health Care Education/Training Program; Visit Provider Internal Medicine Nephrology
DX: N18.2 Chronic kidney disease, stage 2 (mild) (principal); E11.22 Type 2 diabetes mellitus with diabetic chronic kidney disease
CPT/HCPCS: 36415; 80051; 81001; 82043; 82310; 82565; 82570; 84156; 84520

== ENCOUNTER 2024-12-27 16:23 | Outpatient (REF) | payer MEDICARE, SELFPAY ==
[2024-12-27 17:49] LABS: MANUAL DIFF FLAG NO
[2024-12-27 18:02] LABS: Basophils Percent Auto 0.3 % (0-2); Hemoglobin 9.9 g/dl (12.0-16.0); Imm Gran Abs Auto 0.07 X10*3/uL (0.00-0.03); Imm Gran Pct Auto 0.7 % (0.0-0.4); Lymphocytes Absolute Auto 1.3 X10*3/uL (1.2-4.9); Lymphocytes Percent Auto 13.9 % (20-40); Mean Corpuscular HGB Conc 31.9 g/dl (31.0-35.0); Mean Corpuscular Volume 84.7 fL (80.0-98.0); Mean Platelet Volume 10.1 fL (9.4-12.3); Monocytes Absolute Auto 0.5 X10*3/uL (0.1-1.2); Monocytes Percent Auto 5.3 % (2-11); Neutrophils Absolute Auto 7.6 x10*3/uL (2.0-8.3); Neutrophils Percent Auto 79.8 % (45-73); Platelet Count 246 X10*3/uL (160-400); Red Blood Count 3.66 X10*6/uL (4.20-5.50); Red Cell Distribution Width 13.2 % (11.0-16.0); White Blood Count 9.5 X10*3/uL (4.8-10.8)
--- OUTSIDE RECORDS SUMMARY | 2024-12-27 18:36 | XMS_ITS | Encounter Summary ---
Author Organization [facility] Address [address] [place] [address] Phone Care Team Providers Care Serger Name Role Phone Unavailable Primary Care Provider Unavailabl e Reason for Visit * Reason Comments Med Refill Encounter Details Date Type Department Care Team (Late Contact Info) Description 11/16/2024 Refill [facility] [address] [place] [phone] Alf Mendenhall MD [address] [facility] [address] [place] [address] Social History Tobacco Use Types [...] Upcoming Encounters Date Type Department Care Team ([facility] Contact Info) Description 01/15/2025 1:15 PM EDT Office Visit [facility] [address] [place] [phone] Alf Mendenhall MD [address] [address] documented as of this encounter Visit Diagnoses Not on filedocumented in this encounter
--- OUTSIDE RECORDS SUMMARY | 2024-12-27 18:36 | XMS_ITS | Encounter Summary ---
Author Organization [email or web address] Address [address] [facility] 7t [place] [address] Care Team Providers Care Service Station Attendant Name Role Phone Estrella Brunner MD Primary Care Provider [phone] Reason for Visit * Reason Comments Med Refill Encounter Details Date Type Department Care Team ([facility] st Contact Info) Description 12/16/2022 Refill [facility] MEDICINE [address] [place] [address] Estrella Brunner MD [address] [place], [place] [phone] Social History Tobacco Use Types Packs/Day Years Used Date Smoking Tobacco: Former Cigarettes Smokeless Tobacco: Never Comments Unknown Sex and Gender Information Value Date Recorded Sex Assigned at Female 07/06/2022 10:17 AM EDT Legal Sex Female 10:17 AM EDT Gender Identity Female 07/06/2022 10:17 AM EDT Sexual Orientation Straight 07/06/2022 10 :17 AM EDT COVID-19 Exposure Response Date Recorded In the last 10 days, have yo u been in contact with someone who was confirmed or suspected to have Coronavirus/COVID-19? No / Unsure 12/15/2022 10:23 AM EDT documented as of this encounter Plan of Treatment Not on file documented as of this encounter Visit Diagnoses Not on filedocumented in this encounter Care Teams Service Station Attendant Relationship Specialty Start Date End Date Estrella Brunner MD [address] [place] [address] PCP - General Family Medicine 08/17/12 [place] 06/05/24 documented as of this encounter
--- OUTSIDE RECORDS SUMMARY | 2024-12-27 18:36 | XMS_ITS | Encounter Summary ---
Author Organization [employer] Address [address] [facility] [address] 7[address] [place] [address] Care Team Providers Care Magisterial District Judge Name Role Phone Estrella Brunner MD Primary Care Provider Encounter Details Date Type Department Care Team ([facility] st Contact Info) Description 06/14/2024 Telephone [facility] [address] [place], [place] [phone] Estrella Brunner MD [address] [place], [place] [phone] Social History Tobacco Use Types Packs/Day Years Used Date Smoking Tobacco: Former Cigarettes Passive Smoke Exposure: Past Smokeless Tobacco: Never Depression Answer Date Recorded Patient Health Questionnaire-9 Score 1 04/29/2023 Housing Stability Answer Date Recorded What is your housing situation today? I have shelli ahuja 06/21/[address] you li ve. Do you have problems with any of the following? None of the above 06/21/2023 Food Insecurity Answer Date Recorded Within the past 12 months, y ou worried that your food would run out before you got money to buy more: Never True 06/21/2023 Within the past 12 months,th e food you bought just didn't last and you didn't have enough money to get more: Never True Transportation Answer Date Recorded In the past 12 months, has l ack of transportation kept you from medical appts, meetings, work or from getting things needed for daily living? No 06/21/2023 Utilities Answer Date Recorded In the past 12 months, has t he electric, gas, oil or water company threatened to shut off services in your home? No 06/21/2023 Depression Answer Date Recorded Patient Health Questionnaire-2 Score 1 04/29/2023 Comments No Sex and Gender Information Value Date Recorded Sex Assigned at Female 07/06/2022 10:17 AM EDT Legal Sex Female 10:17 AM EDT Gender Identity Female 07/06/2022 10:17 AM EDT Sexual Orientation Straight 07/06/2022 10 :17 AM EDT documented as of this encounter Miscellaneous Notes * Telephone Encounter - Shiloh Miranda - 06/14/2024 3:05 PM EDT Tc from Roberta nurse practitioner with [facility] stating pt reported is having hypoglycemia 2-3 a week. If any questions contact Roberta [phone] documented in this encounter Plan of Treatment Not on file documented as of this encounter Visit Diagnoses Not on filedocumented in this encounter Additional Health Concerns Assessment Noted Time PHQ-9 Depression Total Score: 1 04/29/20 23 10:40 AM EDT documented as of this encounter Care Teams Magisterial District Judge Relationship Specialty Start Date End Date Estrella Brunner MD [address] [place] [phone] PCP - General Family Medicine 08/17/12 [place]ory 06/05/24 documented as of this encounter
--- OUTSIDE RECORDS SUMMARY | 2024-12-27 18:36 | XMS_ITS | Encounter Summary ---
Author Organization [employer] Address [address] [facility] [address] [place] [address] Care Team Providers Care Director Of Primary Name Role Phone Estrella Brunner MD Primary Care Provider [phone] Encounter Details Date Type Department Care Team (Late st Contact Info) Description 10/16/2022 Orders Only [facility]S [address] [place] [address] Rissa Su LPN Social History Tobacco Use Types Packs/Day Years Used Date Smoking Tobacco: Never Assessed Comments Unknown Sex and Gender Information Value [...] on filedocumented in this encounter Care Teams Director Of Primary Relationship Specialty Start Date End Date Estrella Brunner MD [address] [place] [address] PCP - General Family Medicine 08/17/12 [facility] 06/05/24 documented as of this encounter
--- OUTSIDE RECORDS SUMMARY | 2024-12-27 18:36 | XMS_ITS | Encounter Summary ---
Author Organization [employer] Address [address] [facility] [address] [place] [address] Care Team Providers Care Broadcast Field Supervisor Name Role Phone Estrella Brunner MD Primary Care Provider [phone] Reason for Visit * Reason Onset Date Comments callback request 07/11/2024 Encounter Details Date Type Department Care Team ([facility] Contact Info) Description 07/11/[address] [facility] MEDICINE [address] [place] [address] Estrella Brunner MD [address] [place], [place] [phone] callback request Social History Tobacco Use Types Packs/Day Years Used Date Smoking Tobacco: Former Cigarettes Passive Smoke Exposure: Past Smokeless Tobacco: Never Depression Answer Date Recorded Patient Health Questionnaire-9 Score 1 04/29/2023 Housing Stability Answer Date Recorded What is your housing situation today? I have sehlli ahuja 06/21/[address] you [...] encounter Miscellaneous Notes * Telephone Encounter - Jose Kan - 07/11/2024 11:34 AM EST Tc from pt requesting a callback from PCP or [place] (no further discussed) documented in this encounter Plan of Treatment Not on file documented as of this encounter Visit Diagnoses Not on filedocumented in this encounter Additional Health Concerns Assessment Noted Time PHQ-9 Depression Total Score: 1 04/29/20 23 10:40 AM EDT documented as of this encounter Care Teams Broadcast Field Supervisor Relationship Specialty Start Date End Date Estrella Brunner MD [address] [place] [address] PCP - General Family Medicine 08/17/12 [place] 06/05/24 documented as of this encounter
--- OUTSIDE RECORDS SUMMARY | 2024-12-27 18:36 | XMS_ITS | Clinical Summary ---
Author Organization [facility] Address [address] [facility] [address] Phone Care Team Providers Care Benefits Officer Name Role Phone Unavailable Primary Care Provider [...] and evening 2 Active ergocalciferol 1.25 MG (70836 UT) capsule TAKE 1 CAPSULE BY MOUTH [...] episode Presence of left artificial knee joint 2 Type 2 diabetes mellitus without complication Unilateral primary osteoarthritis of left knee 0 11/14/2021 Encounters Date Type Department Care Team Description 12/21/2024 Orders Only [facility] [address] [place] [phone] Alf Mendenhall MD 12/20/2024 Refill [facility] [address] [facility] [address] [place] [phone] Alf Mendenhall MD 11/16/2024 Refill [facility] [address] [place] [phone] Alf Mendenhall MD from Last 3 Months [...] Visit [facility] [address] [place] [address] Alf Mendenhall MD [address] [facility] [address] [place] [address] Health Maintenance Due Date Last Done Comments [...] Completed 06/08/2024, , 07/09/2021, Additional history exists Procedures Procedure Name Priority Date/Time Associated Diagnosis Comments PROTEIN / CREATININE RATIO, URINE Routine 12/21/2024 11:11 AM EDT ALBUMIN, URINE, RANDOM Routine 12/21/2024 11:11 AM EDT URINALYSIS WITH MICROSCOPIC Routine 12/21/2024 11:11 AM EDT CALCIUM Routine 12/21/2024 9:59 AM EDT CREATININE, BLOOD Routine 12/21/2024 9:5 9 AM EDT BUN Routine 12/21/2024 9:59 AM EDT ELECTROLYTE PANEL Routine 12/21/2024 9:5 9 AM EDT from Last 3 Months Results * Protein, Total, Random Urine w/Creatinine (Protein/Creat Ratio) (12/21/2024 11:11 AM EDT) Protein Urine Random <7 <12 mg/dL See order comments Protein/Creatin ine Ratio, Urine TNP <0.2 See order comments Comment: Unable to calculate urine protein creatinine ratio due to low creatinine or protein result. 12/21/2024 11:1 1 AM EDT 12/21/2024 11:11 AM EDT us Alf Mendenhall MD LAB URINE ORDERABLES Final Re sult [place] See order comments [place] [address] * Albumin, urine, random (12/21/2024 11:11 AM EDT) Creatinine, Urine 135.55 mg/dL Se e order comments Urine Microalbumin 8.0 mg/L See order comments Microalbumin/Crea tinine Ratio 5.9 <30 ug/mg cr See order comments Comment: ?Albumin/Creatinine Ratio Reference Ranges: ?Normal: < 30 ug/mg creatinine ?Microalbuminuria: ??30 - 300 ug/mg creatinine Clinical Albuminuria: ??> 300 ug/mg creatinine 12/21/2024 11:1 1 AM EDT 12/21/2024 11:11 AM EDT Alf Mendenhall MD LAB URINE ORDERABLES Final Re sult Performing Organization Address City/[facility] Co de Phone Number [place]LLU[place] ARMANDO See order comments [place] [address] * (ABNORMAL) Urinalysis with microscopic (12/21/2024 11:11 AM EDT) Color Urine Yellow See orde r comments Appearance Urine Cloudy See order comments pH Urine 5.5 5.0 - 9.0 See order comments Glucose Urine Negative Negative mg/dL See order comments Blood, Urine Negative Negative See ord er comments Specific [place] Urine 1.015 1.005 - 1.025 See order comments Protein Urine Negative Neg-Trace mg/dL See order comments Ketones, Urine Trace Negative mg/dL See order comments Nitrite, Urine Positive(A) Negative See order comments Leukocyte Esterase Urine Small (1+)(A) Negative See order comments RBC, Urine 0-2 0 - 2 /HPF See orde r comments WBC 6-10(A) 0 - 5 /HPF See order comments Squamous Epithelial, Urine 3-5 0 - 2 /HPF See order comments Bacteria, Urine 4+ None Seen See order comments Hyaline Casts, Urine 0-2 0 - 2 /LPF See order comments 12/21/2024 11:1 1 AM EDT 12/21/2024 11:11 AM EDT Alf Mendenhall MD LAB URINE ORDERABLES Final Re sult [place] See order comments [place] [address] * Creatinine (12/21/2024 9:59 AM EDT) Creatinine Serum 0.81 0.5 - 1.4 mg/dL See order comments eGFR >60 See order comments Comment: Chronic Kidney Disease: ??Estimated GFR < 60 mL/min/1.73m2 Severe Kidney Disease: ??Estimated GFR < 15 mL/min/1.73m2 12/21/2024 9:59 AM EDT 12/21/2024 9:59 AM EDT us Alf Mendenhall MD LAB BLOOD ORDERABLES Final Re sult Performing Organization Address [facility] Phone Number [place] See order comments [place] [address] * BUN (12/21/2024 9:59 AM EDT) BUN 13 9 - 16 mg/dL See order comments 12/21/2024 9:59 AM EDT 12/21/2024 9:59 AM EDT us Alf Mendenhall MD LAB BLOOD ORDERABLES Final Re sult Performing Organization Address [facility] Phone Number [place] See order comments [place] [address] * Calcium (12/21/2024 9:59 AM EDT) Calcium 9.4 8.4 - 10.2 mg/dL See order comments 12/21/2024 9:59 AM EDT 12/21/2024 9:59 AM EDT us Alf Mendenhall MD LAB BLOOD ORDERABLES Final Re sult Performing Organization Address [facility] Phone Number [place] See order comments [place] [address] * Electrolyte panel (12/21/2024 9:59 AM EDT) Sodium 139 135 - 145 mmol/L See order comments Potassium 3.9 3.3 - 5.1 mmol/L See order comments Chloride 103 96 - 108 mmol/L See order comments Bicarbonate (CO2) 25 22 - 29 mmol/L See order comments Anion Gap 15 12 - 20 See order comments 12/21/2024 9:59 AM EDT 12/21/2024 9:59 AM EDT us Alf Mendenhall MD LAB BLOOD ORDERABLES Final Re sult [place] See order comments [place] [address] from Last 3 Months Insurance [facility] Medicare Medicare
--- OUTSIDE RECORDS SUMMARY | 2024-12-27 18:36 | XMS_ITS | Encounter Summary ---
Author Organization [employer] Address [address] [facility] [address] [address] [place] [address] Care Team Providers Care Fire Protection Fabricator Name Role Phone Estrella Brunner MD Primary Care Provider [phone] Encounter Details Date Type Department Care Team ([facility] st Contact Info) Description 01/14/2023 Orders Only [facility] CHC MED & PEDS [address] [place] [address] Linda Arellano LPN Social History Tobacco Use Types Packs/Day [...] suspected to have Coronavirus/COVID-19? No / Unsure 01/07/2023 10:46 AM EDT documented as of this encounter Plan of Treatment Not on file documented as of this encounter Visit Diagnoses Not on filedocumented in this encounter Care Teams Fire Protection Fabricator Relationship Specialty Start Date End Date Estrella Brunner MD [address] [place] [address] PCP - General Family Medicine 08/17/12 [facility] 06/05/24 documented as of this encounter
--- OUTSIDE RECORDS SUMMARY | 2024-12-27 18:36 | XMS_ITS | Encounter Summary ---
Author Organization [employer] Address [address] [place] [address] Care Team Providers Care Manager Fine Name Role Phone Estrella Brunner MD Primary Care Provider [phone] Reason for Visit * Reason Onset Date Comments Referral 12/15/2022 Encounter Details Date Type Department Care Team ([facility] st Contact Info) Description 12/15/2022 Telephone [facility] MEDICINE [address] [place] [address] Estrella Brunner MD [address] [place] [address] Referral Social History Tobacco Use Types Packs/Day Years [...] encounter Miscellaneous Notes * Telephone Encounter - Nusrat Sylvester RN - 12/16/2022 9:36 AM EDT Please review request below and advise. List of local contacts also being mailed out to pt to address on file. * Telephone Encounter - Benny Herman - 12/15/2022 1:43 PM EDT Tc from pt requesting a [facility] Please contact pt at [phone] documented in this encounter Plan of Treatment Not on file documented as of this encounter Visit Diagnoses Not on filedocumented in this encounter Care Teams Manager Fine Relationship Specialty Start Date End Date Estrella Brunner MD [address] [place] [address] PCP - General Family Medicine 08/17/12 [facility] 06/05/24 documented as of this encounter
--- OUTSIDE RECORDS SUMMARY | 2024-12-27 18:36 | XMS_ITS | Encounter Summary ---
Author Organization [employer] Address [address] [place] [address] Care Team Providers Care Outside Sales Consultant Name Role Phone Estrella Brunner MD Primary Care Provider [phone] Encounter Details Date Type Department Care Team (Latest Contact Info) Description 12/27/2024 Travel Social History Tobacco Use Types Packs/Day Years Used Date Smoking Tobacco: Former Cigarettes Passive Smoke Exposure: Past Smokeless Tobacco: Never Depression Answer Date Recorded Patient Health Questionnaire-9 Score 1 04/29/2023 Housing Stability Answer Date Recorded What is your housing situation today? I have shelliyudy ahuja 07/28/[address] you li ve. Do you have problems with any of the following? None of the above 07/28/2024 Food Insecurity Answer Date Recorded Within the past 12 months, y ou worried that your food would run out before you got money to buy more: Never True 07/28/2024 Within the past 12 months,th e food you bought just didn't last and you didn't have enough money to get more: Never True Transportation Answer Date Recorded In the past 12 months, has l ack of transportation kept you from medical appts, meetings, work or from getting things needed for daily living? No 07/28/2024 Utilities Answer Date Recorded In the past 12 months, has t he electric, gas, oil or water company threatened to shut off services in your home? No 07/28/2024 Depression Answer Date Recorded Patient Health Questionnaire-2 Score 1 04/29/2023 Internet Access Answer Date Recorded Internet Access Q1 Yes 07/28/2024 Internet Access Q2 Not on file 07/28/2024 Comments No Sex and Gender Information Value [...] documented as of this encounter Care Teams Outside Sales Consultant Relationship Specialty Start Date End Date Estrella Brunner MD [address] [place] [address] PCP - General Family Medicine 08/17/12 [facility]ri[facility]yla 06/05/24 documented as of this encounter
--- OUTSIDE RECORDS SUMMARY | 2024-12-27 18:36 | XMS_ITS | Encounter Summary ---
Author Organization [employer] Address [address] [facility] 7t [place] [address] Care Team Providers Care Dragger Out Name Role Phone Estrella Brunner MD Primary Care Provider [phone] Reason for Referral * Consultation (Routine) - Pending Review Specialty Diagnoses / Procedures Referred By Ra fischer Referred To Contact Gastroenterology Diagnoses Unintentional weight loss Stewart Perez MD [address] [place] [address] Phone: tel: fax: Referral ID Status Reason Start Date Expiration Date Visits Requested Visits Authorized [id number] Pending Review Specialty Services Required 12/27/2024 12/27/2025 1 1 Reason for Visit * Reason Comments Unintentional weight loss Encounter Details Date Type Department Care Team ([facility] Contact Info) Description 12/27/2024 3:45 PM EDT Office Visit [facility] CHC MED & PEDS [address] [place] [address] Stewart Perez MD [address] [place] [address] Type 2 diabetes mellitus without complication, without long-term current use of insulin (CMS/HCC) (Primary Dx); Unintentional weight loss Social History Tobacco Use Types Packs/Day Years Used Date Smoking Tobacco: Former Cigarettes Passive Smoke Exposure: Past Smokeless Tobacco: Never Depression Answer Date Recorded Patient Health Questionnaire-9 Score 1 04/29/2023 Housing Stability Answer Date Recorded What is your housing situation today? I have shelli ahuja 07/28/[address] you [...] AM EDT documented as of this encounter Last Filed Vital Signs Vital Sign Reading Time Taken Comments Blood Pressure 161/75 12/27/2024 4:03 PM EDT Pulse 91 12/27/2024 4:03 PM EDT Temperature 36.7 ??C (98 ??F) 12/27/2024 4:03 PM EDT Respiratory Rate 20 12/27/2024 4:03 PM EDT Oxygen Saturation 90% 12/27/2024 4:03 PM EDT Inhaled Oxygen Concentration - - Weight 85.3 kg (188 lb) 12/27/2024 4:03 PM EDT Height 157.5 cm (5' 2 ) 12/27/2024 4:03 PM EDT Body Mass Index 34.39 12/27/2024 4:03 PM EDT documented in this encounter Progress Notes * Stewart Perez MD - 12/27/2024 3:45 PM EDT JAGUAR Linares is a 74 y.o. female who presents for Unintentional weight loss. HPI Patient is asymptomatic today. No new symptoms. Her visiting nurse gets concerned because she noticed a 9 pound weight loss. Last weight on August 04, 2024 was 197 but today patient's weight is 188pounds. Patient denies fever/shortness of breath/palpitation/cough/blood in her stools/abdominal pain or any new symptoms. She admits eating less because she is going out less. Back in the days when she used to go out she would grab a burger and other carb rich food which would prevent her from losing weight. Reports 1 episode of hypoglycemia in the 50s. Patient Active Problem List Diagnosis Acute on chronic diastolic (congestive) heart failure (CMS/HCC) Anemia due to acute blood loss Coronary arteriosclerosis Essential (primary) hypertension Chronic obstructive pulmonary disease with acute exacerbation (CMS/HCC) Gastro-esophageal reflux disease without esophagitis Hyperlipidemia Hypomagnesemia Left ventricular dysfunction Melena Major depressive disorder, single episode, unspecified Old myocardial infarction Presence of left artificial knee joint Renal osteodystrophy Severe obesity (CMS/HCC) Stage 3b chronic kidney disease (CMS/HCC) Type 2 diabetes mellitus without complication (CMS/HCC) Unilateral primary osteoarthritis, left knee Geographic tongue Allergies Allergen Reactions Amoxicillin Shortness of breath and Itching Levetiracetam Angioedema, Headache and Swelling Levofloxacin Current Outpatient Medications on File Prior to Visit Medication Sig Dispense Refill Acetaminophen 500 MG capsule Take 1 capsule every 6 hours prn pain or fever 30 capsule 0 albuterol 108 (90 Base) MCG/ACT inhaler Inhale 2 puffs every 4 (four) hours if needed for wheezing.PROAIR ONLY 18 g 0 Alcohol Swabs (Alcohol Prep) 70 % pads USE DIRECTED TWICE DAILY 90 each 5 Aspirin Low Dose 81 MG EC tablet TAKE 1 TABLET BY MOUTH EVERY MORNING 30 tablet 11 atorvastatin (Lipitor) 80 MG tablet Take 1 tablet (80 mg) by mouth at bedtime. 90 tablet 3 Blood Glucose Monitoring Suppl (ONE TOUCH ULTRA 2) w/Device kit USE DIRECTED TO TEST BLOOD SUGARTWICE DAILY 1 kit 0 Blood Pressure kit Use BP kit to check BP daily 1 kit 0 cetirizine (ZyrTEC) 10 MG tablet Take 10 mg by mouth in the morning. Combivent Respimat 20-100 MCG/ACT inhaler Inhale 1 puff every 4 (four) hours. cyanocobalamin (Vitamin B-12) 1000 MCG tablet TAKE 1 TABLET BY MOUTH EVERY MORNING 30 tablet 11 Diclofenac Sodium (Voltaren) 1 % gel Use topical BID 100 g 3 Dymista 137-50 MCG/ACT suspension Administer 1 spray into each nostril 2 times daily. ergocalciferol (Vitamin D2) 1.25 MG (04184 UT) capsule Take 1 capsule by mouth 1 (one) time per week. ezetimibe (Zetia) 10 MG tablet Take 1 tablet by mouth Once per day. Ferrous Sulfate (iron) 325 (65 Fe) MG tablet TAKE 1 TABLET BY MOUTH TWICE DAILY IN THE MORNING AND IN THE EVENING 60 tablet 11 glipiZIDE (Glucotrol) 5 MG tablet TAKE 1 TABLET BY MOUTH EVERY MORNING 30 tablet 1 ibuprofen 600 MG tablet Take 1 tablet by mouth 3 times daily. isosorbide mononitrate ER (Imdur) 30 MG 24 hr tablet Take 1 tablet by mouth Once per day. Lancets (TapImmuneTouch Delica Plus [id number]) misc TEST BLOOD SUGAR TWICE DAILY DIRECTED 100 each 3 magnesium oxide (Mag-Ox) 400 (240 Mg) MG tablet Take 1 tablet by mouth 2 times daily. metoprolol succinate XL (Toprol-XL) 25 MG 24 hr tablet Take 1 tablet by mouth in the morning. nitroglycerin (Nitrostat) 0.[address] 1 tablet (0.4 mg) under the tongue every 5 (five) minutes if needed for chest pain. 90 tablet 0 OneTouch Ultra Test test strip TEST BLOOD SUGAR TWICE DAILY DIRECTED 50 strip 5 oxybutynin XL (Ditropan-XL) 10 MG 24 hr tablet TAKE 1 TABLET BY MOUTH EVERYDAY AT NOON 30 tablet 11 pantoprazole (ProtoNix) 40 MG EC tablet 2 times daily. Repatha SureClick 140 MG/ML injection Inject 1 mL under the skin every 14 (fourteen) days. sertraline (Zoloft) 50 MG tablet TAKE 1 TABLET BY MOUTH AT BEDTIME 30 tablet 11 traZODone (Desyrel) 50 MG tablet TAKE 1 TABLET BY MOUTH AT BEDTIME 30 tablet 11 Trelegy Ellipta 200-62.5-25 MCG/ACT aerosol powder Inhale 1 puff 1 (one) time each day at the same time. [DISCONTINUED] metFORMIN (Glucophage) 1000 MG tablet TAKE 1 TABLET BY MOUTH TWICE DAILY IN THE MORNING AND IN THE EVENING 180 tablet 1 No current facility-administered medications on file prior to visit. Review of Systems Constitutional: Negative for chills, diaphoresis and fatigue. Eyes: Negative for photophobia, pain and redness. Respiratory: Negative for cough, choking and shortness of breath. Cardiovascular: Negative for leg swelling. Gastrointestinal: Negative for anal bleeding and blood in stool. OBJECTIVE Vitals: 12/27/24 1603 BP: (!) 161/75 BP Location: Left arm Patient Position: Sitting BP Cuff Size: Adult long Pulse: 91 Resp: 20 Temp: 98 ??F (36.7 ??C) TempSrc: Oral SpO2: 90% Weight: 188 lb (85.3 kg) Height: 5' 2 (1.575 m) Physical Exam Constitutional: General: She is not in acute distress. Appearance: Normal appearance. She is obese. She is not ill-appearing, toxic- appearing or diaphoretic. Cardiovascular: Rate and Rhythm: Normal rate. Pulmonary: Effort: Pulmonary effort is normal. No respiratory distress. Breath sounds: No stridor. No wheezing or rhonchi. Neurological: Mental Status: She is alert. Assessment/Plan Assessment/Plan Diagnoses and all orders for this visit: Type 2 diabetes mellitus without complication, without long-term current use of insulin ([facility]) Comments: The dose of metformin was decreased to 850 mg 2 times a day given the episode of hypoglycemia Regular snacks recommended. Orders: - POCT Glucose - POCT HGB A1C - metFORMIN (Glucophage) 850 MG tablet; Take 1 tablet (850 mg) by mouth with breakfast and with evening meal. Unintentional weight loss - Comprehensive Metabolic Panel; Future - CBC auto differential; Future - Hepatitis C Antibody with Reflex to HCV, RNA, Quantitative, Real-Time PCR; Future - Helicobacter pylori Antigen, EIA, Stool; Future - TSH W/Reflex to FT4; Future - Referral to Gastroenterology; Future documented in this encounter Plan of Treatment Scheduled Orders Name Type Priority Associated Diagnoses Orde r Schedule Comprehensive Metabolic Panel Lab Routine Unintentional weight loss Expected: 12/27/2024 (Approximate), Expires: 12/27/2025 Hepatitis C Antibody with Reflex to HCV, RNA, Quantitative, Real-Time PCR Lab Routine Unintentional weight loss Expected: 12/27/2024, Expires: 12/27/2025 Helicobacter pylori??Antigen, EIA, Stool Lab Routine Unintentional weight loss Expected: 12/27/2024, Expires: 12/27/2025 TSH W/Reflex to FT4 Lab Routine Unintentional weight loss Expected: 12/27/2024 (Approximate), Expires: 12/27/2025 Scheduled Referrals Name Type Priority Associated Diagnoses Order Schedule Referral to Gastroenterology Outpatient Referral Routine Unintentional weight loss Expected: 12/27/2024 (Approximate), Expires: 12/27/2025 documented as of this encounter Procedures Procedure Name Priority Date/Time Associated Diagnosis Comments CBC WITH AUTO DIFFERENTIAL Routine 12/27/2024 4:25 PM EDT Unintentional weight loss POCT GLUCOSE Routine 12/27/2024 4:21 PM EDT Type 2 diabetes mellitus without complication, without long-term current use of insulin ([facility]) POCT GLYCATED HEMOGLOBIN, TOTAL Routine 12/27/2024 4:19 PM EDT Type 2 diabetes mellitus without complication, without long-term current use of insulin ([facility]) documented in this encounter Results * (ABNORMAL) CBC auto differential (12/27/2024 4:25 PM EDT) White Blood Count 9.5 4.8 - 10.8 X10*3/uL [facility] Red Blood Count 3.66(L) 4.20 - 5.50 X10*6/uL [facility] Hemoglobin 9.9(L) 12.0 - 16.0 g/dl [facility] Hematocrit 31.0(L) 37.0 - 47.0 % [facility] Mean Corpuscular Volume 84.7 80.0 - 98.0 fL [facility] Mean Corpuscular Hemoglobin 27.0 27.0 - 33.0 pg [facility] Mean Corpuscular HGB Conc 31.9 31.0 - 35.0 g/dl [facility] Red Cell Distribution Width 13.2 11.0 - 16.0 % [facility] Platelet Count 246 160 - 400 X10*3/uL [facility] Mean Platelet Volume 10.1 9.4 - 12.3 fL [facility] Neutrophils Percent Auto 79.8(H) 45 - 73 % [facility] Imm Gran Pct Auto 0.7(H) 0.0 - 0.4 % [facility] Lymphocytes Percent Auto 13.9(L) 20 - 40 % [facility] Monocytes Percent Auto 5.3 2 - 11 % [facility] Eosinophils Percent Auto 0.0 0 - 4 % [facility] Basophils Percent Auto 0.3 0 - 2 % [facility] NRBC Pct Auto 0.0 0.0 - 0.2 /100WBC [facility] Neutrophils Absolute Auto 7.6 2.0 - 8.3 x10*3/uL [facility] Imm Gran Abs Auto 0.07(H) 0.00 - 0.03 X10*3/uL [facility] Lymphocytes Absolute Auto 1.3 1.2 - 4.9 X10*3/uL [facility] Monocytes Absolute Auto 0.5 0.1 - 1.2 X10*3/uL [facility] Eosinophils Absolute Auto 0.0 0.0 - 0.4 X10*3/uL [facility] Basophils Absolute Auto 0.0 0.0 - 0.2 X10*3/uL [facility] NRBC Abs Auto 0.000 0.0 - 0.012 X10*3/uL [facility] Blood Venous blood specimen / Unknown 12/27/2024 4:25 PM EDT 12/27/2024 5:45 PM EDT us Stewart Perez MD LAB BLOOD ORDERABLES Final Result [facility] [address] [place] [address] [phone] * POCT Glucose (12/27/2024 4:21 PM EDT) Glucose Blood, POC 181 60 - 200 mg/dL QC Media Lot # [id number] Lot# Expiration Date 732,025 Comment:random Blood Capillary blood specimen / Unknown 12/27/2024 4:21 PM EDT Stewart Perez MD POINT OF CARE TEST ENTER/ED IT ORDERABLES Final Result * (ABNORMAL) POCT HGB A1C (12/27/2024 4:19 PM EDT) Hemoglobin A1C 6.0(A) 4.0 - 6.0 % QC Media Lot # [id number] Lot# Expiration Date ,026 Blood 12/27/2024 4:19 PM EDT Stewart Perez MD POINT OF CARE TEST ENTER/ED IT ORDERABLES Final Result documented in this encounter Visit Diagnoses Diagnosis Type 2 diabetes mellitus without complication, without long-term current use of insulin ([facility])- Primary Unintentional weight loss Loss of weight documented in this encounter Additional Health Concerns Assessment Noted Time PHQ-9 Depression Total Score: 1 04/29/20 23 10:40 AM EDT documented as of this encounter Care Teams Dragger Out Relationship Specialty Start Date End Date Estrella Brunner MD [address] [place] [id number] PCP - General Family Medicine 08/17/12 Mallory 06/05/24 documented as of this encounter
--- OUTSIDE RECORDS SUMMARY | 2024-12-27 18:36 | XMS_ITS | Encounter Summary ---
Author Organization [employer] Address [address] [place] [address] Care Team Providers Care Community Health Program Representative Name Role Phone Estrella Brunner MD Primary Care Provider [phone] Reason for Visit * Reason Onset Date Comments FYI 09/14/2024 Encounter Details Date Type Department Care Team ([facility] st Contact Info) Description 09/14/2024 Telephone [facility] [address] [place] [address] Estrella Brunner MD [address] [place], [place] [phone] FYI Social History Tobacco Use Types Packs/Day Years [...] * Telephone Encounter - Jose Kan - 09/14/2024 4:00 PM EST Tc nia Lobo from care tenders notifying pt has been losing weight Pt weight -August 24 2024 (202.7) September 14 2024 (195.6) documented in this encounter Plan of Treatment Not on file documented as of this encounter Visit Diagnoses Not on filedocumented in this encounter Additional Health Concerns Assessment Noted Time PHQ-9 Depression Total Score: 1 04/29/20 23 10:40 AM EDT documented as of this encounter Care Teams Community Health Program Representative Relationship Specialty Start Date End Date Estrella Brunner MD [address] [place] [phone] PCP - General Family Medicine 08/17/12 [facility] 06/05/24 documented as of this encounter
--- OUTSIDE RECORDS SUMMARY | 2024-12-27 18:36 | XMS_ITS | Clinical Summary ---
Author Organization [employer] Address [address] [place] [address] Care Team Providers Care Herbarium Worker Name Role Phone Estrella Brunner MD Primary Care Provider [phone] Allergies Active Allergy Reactions Criticality Noted Date Comments Amoxicillin Shortness of breath,Itching High 023 Levetiracetam Angioedema,Headache,Swelling 10/07 Levofloxacin 07/23/2023 Medications Dymista 137-50 MCG/ACT suspension Administer 1 spray into each nostril 2 times daily. 10/01/19 23 Active cetirizine (ZyrTEC) 10 MG tablet Take 10 mg by mouth in the morning. 01/20/20 22 Active pantoprazole (ProtoNix) 40 MG EC tablet 2 times daily. 02/03/20 18 Active albuterol 108 (90 Base) MCG/ACT inhaler Inhale 2 puffs every 4 (four) hours if needed for wheezing. PROAIR ONLY 18 g 06/23/20 23 Active nitroglycerin (Nitrostat) 0.[address] 1 tablet (0.4 mg) under the tongue every 5 (five) minutes if needed for chest pain. 90 tablet 01/10/20 24 Active atorvastatin (Lipitor) 80 MG tablet Take 1 tablet (80 mg) by mouth at bedtime. 90 tablet 3 03/24/20 24 Active Diclofenac Sodium (Voltaren) 1 % gel Use topical BID 100 g 3 03/24/20 24 Active Alcohol Swabs (Alcohol Prep) 70 % pads USE DIRECTED TWICE DAILY 90 each 5 04/06/20 24 025 Active Ferrous Sulfate (iron) 325 (65 Fe) MG tablet TAKE 1 TABLET BY MOUTH TWICE DAILY IN THE MORNING AND IN THE EVENING 60 tablet 11 04/27/20 24 Active ergocalciferol (Vitamin D2) 1.25 MG (79379 UT) capsule Take 1 capsule by mouth 1 (one) time per week. 03/24/20 24 Active Repatha SureClick 140 MG/ML injection Inject 1 mL under the skin every 14 (fourteen) days. 05/05/20 24 Active ezetimibe (Zetia) 10 MG tablet Take 1 tablet by mouth Once per day. 04/20/20 24 Active Trelegy Ellipta 200-62.5-25 MCG/ACT aerosol powder Inhale 1 puff 1 (one) time each day at the same time. 05/16/20 24 Active ibuprofen 600 MG tablet Take 1 tablet by mouth 3 times daily. 07/09/20 21 Active Combivent Respimat 20-100 MCG/ACT inhaler Inhale 1 puff every 4 (four) hours. 05/16/20 24 Active isosorbide mononitrate ER (Imdur) 30 MG 24 hr tablet Take 1 tablet by mouth Once per day. 04/20/20 24 Active magnesium oxide (Mag-Ox) 400 (240 Mg) MG tablet Take 1 tablet by mouth 2 times daily. 05/16/20 24 Active metoprolol succinate XL (Toprol-XL) 25 MG 24 hr tablet Take 1 tablet by mouth in the morning. 05/22/20 24 Active Blood Pressure kitIndications:E ssential (primary) hypertension Use BP kit to check BP daily 1 kit 06/08/20 24 Active Aspirin Low Dose 81 MG EC tablet TAKE 1 TABLET BY MOUTH EVERY MORNING 30 tablet 11 07/11/20 24 Active OneTouch Ultra Test test stripIndications :Type 2 diabetes mellitus without complication, without long-term current use of insulin ([facility]) TEST BLOOD SUGAR TWICE DAILY DIRECTED 50 strip 5 08/25/20 24 Active cyanocobalamin (Vitamin B-12) 1000 MCG tablet TAKE 1 TABLET BY MOUTH EVERY MORNING 30 tablet 11 10/11/19 25 Active Lancets (OneTouch Delica Plus [id number]) misc TEST BLOOD SUGAR TWICE DAILY DIRECTED 100 each 3 10/17/19 25 Active Acetaminophen 500 MG capsule Take 1 capsule every 6 hours prn pain or fever 30 capsule 10/18/19 25 Active traZODone (Desyrel) 50 MG tablet TAKE 1 TABLET BY MOUTH AT BEDTIME 30 tablet 11 10/31/19 25 Active sertraline (Zoloft) 50 MG tablet TAKE 1 TABLET BY MOUTH AT BEDTIME 30 tablet 11 10/31/19 25 Active Blood Glucose Monitoring Suppl (ONE TOUCH ULTRA 2) w/Device kit USE DIRECTED TO TEST BLOOD SUGAR TWICE DAILY 1 kit 10/31/19 25 Active glipiZIDE (Glucotrol) 5 MG tablet TAKE 1 TABLET BY MOUTH EVERY MORNING 30 tablet 1 12/21/19 25 Active oxybutynin XL (Ditropan-XL) 10 MG 24 hr tablet TAKE 1 TABLET BY MOUTH EVERYDAY AT NOON 30 tablet 11 12/21/19 25 Active metFORMIN (Glucophage) 850 MG tabletIndication s:Type 2 diabetes mellitus without complication, without long-term current use of insulin ([facility]) Take 1 tablet (850 mg) by mouth with breakfast and with evening meal. 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 The patient was reassured that the condition is not serious, not contagious, and a variant of a normal tongue. She was educated on the condition, including potential causes such as stress, hormonal disturbances, and significant changes. She was provided with a handout on the nature of geographic tongue. Patient was advised to monitor the lesions and to report any significant changes. I will consider referral to oral surgeon if there is significant change in lesions. Anemia due to acute blood loss 11/24/2022 Melena 11/24/2022 Hypomagnesemia 04/13/2022 Coronary arteriosclerosis 02/03/2022 Left ventricular dysfunction 02/03/2022 Old myocardial infarction 02/03/2022 Renal osteodystrophy 02/03/2022 Severe obesity 02/03/2022 Stage 3b chronic kidney disease 02/03/2022 Acute on chronic diastolic (congestive) heart fa ilure 11/17/2021 Chronic obstructive pulmonar y disease with acute exacerbation 11/17/2021 Essential (primary) hypertension 11/14/2021 Assessment & Plan (11/15/2023 10:00 PM EDT): Elevated blood pressure during visit. She was advised to monitor blood pressure and ensure she take her medication as prescribed. Gastro-esophageal reflux disease without esophag itis 11/14/2021 Hyperlipidemia 11/14/2021 Major depressive disorder, single episode, unspe cified 11/14/2021 Presence of left artificial knee joint Unilateral primary osteoarthritis, left knee 07/2022 Type 2 diabetes mellitus without complication Encounters Date Type Department Care Team Description 12/27/2024 3:45 PM EDT Office Visit [facility] [address] [place] [address] Stewart Perez MD Type 2 diabetes mellitus without complication, without long-term current use of insulin ([facility]) (Primary Dx); Unintentional weight loss 12/27/2024 Travel 12/20/2024 Travel 12/20/2024 Refill [facility] [address] [place] [address] Estrella Brunner MD 12/15/2024 Telephone [facility] MED[facility] [address] [place] [address] Estrella Brunner MD FYI 10/31/2024 Refill [facility] [address] [place] [address] Danie Casanova MD 10/31/2024 Refill [facility] [address] [place] [address] Tricia Cox MD 10/31/2024 Refill [facility] [address] [place] [address] Estrella Brunner MD 10/17/2024 Refill [facility] [address] [place] [place] [address] Lisbeth Garcia MD 10/17/2024 Travel 10/13/2024 Refill [facility] [address] [place] [address] Estrella Brunner MD 10/11/2024 Refill [facility] [address] [facility] [place] [address] Estrella Brunner MD 10/04/2024 Refill [facility] [address] [place], [place] [phone] Estrella Brunner MD from Last 3 Months Immunizations Name Administration Dates Next Due Hep B, adult 08/19/2007,02/17/2007,01/17/2007 Influenza High-dose Quadriva lent Preservative Free 07/23/2023,06/30/2022,07/09/2021,06/09 Influenza injectable quadriv alent IIV4 with preservative 06/14/2019,05/20/2018,07/16/2016,05/27 Influenza injectable quadriv alent preservative free 07/09/2017 Influenza, High Dose Seasona l, Preservative Free 06/08/2024 Influenza, IIV3, injectable 07/23/2020, 4,06/13/2014 Influenza, Split (incl. galdino fied surface antigen) 11/24/2013,06/10/2012 Influenza, Unspecified 06/30/2022,2020,07/23/2020,06/09,05/20/2018,07/18/2014,06/13/2014 Pfizer Covid-19 Vaccine 12+ 06/08/2024 Pneumococcal Conjugate PCV 13 07/16/2016 Pneumococcal Polysaccharide PPSV23 07/09/2017, TD (adult), 2 Lf tetanus tox oid, preservative free, adsorbed 12/11/2005 Tdap 08/11/2024,11/24/2013 Zoster, Recombinant 09/11/2022,06/30/2022 Zoster, live 09/11/2022,06/30/2022,05/30/2015 Social History Tobacco Use Types Packs/Day Years Used Date Smoking Tobacco: Former Cigarettes Passive Smoke Exposure: Past Smokeless Tobacco: Never Tobacco Cessation:Counseling Given: Not Answered Depression Answer Date Recorded Patient Health Questionnaire-9 Score 1 04/29/2023 Housing Stability Answer Date Recorded What is your housing situation today? I have shelli leigha 07/28/[address] you li [...] Orientation Straight 07/06/2022 10 :17 AM EDT Last Filed Vital Signs Vital [...] Mass Index 34.39 12/27/2024 4:03 PM EDT Plan of Treatment Health Maintenance Due Date Last Done Comments CT Colonography 1950 Dental Prophylaxis 1950 Dental X-Ray: Bitewings 1950 FIT DNA/Cologuard 1950 FIT 1950 FOBT 1950 Sigmoidoscopy 1950 Alcohol/Substance Use Screening 1963 Hepatitis C Screening 1969 RSV Patients and Patients Aged 60 years or older (1 - Risk 60-74 years 1-dose series) 2011 Dental Oral Exam 11/10/2023 05/11/2023 Depression Screening 04/29/2024 04/29/2023, 04/29/20 Diabetes: Foot Exam 04/29/2024 04/29/2023, 04/29/2023, 04/29/2023, Additional history exists Eye Exam 01/07/2025 01/07/2023, 05/0 12/2022, 01/07/2023, Additional history exists Diabetes: Hemoglobin A1C 06/28/2025 025, 06/08/2024, 01/10/2024, Additional history exists Mammogram 06/30/2025 06/30/2024, 10/0 11/2022, 03/27/2019, Additional history exists Lipid Panel 08/11/2025 08/11/2024, 05/0 02/2024, 05/13/2023, Additional history exists Colonoscopy 08/19/2025 08/19/2020 Colorectal Cancer Screening 08/19/2025 SDOH Screening 09/15/2025 09/15/2024 Diabetes: Urine Protein Screening 12/21/2025 12/21/2024, 12/21/2023, 05/13/2023, Additional history exists Tobacco Screening 12/27/2025 12/27/2024 Dental X-Ray: Full Mouth 05/12/2026 05/11/2023 DTaP/Tdap/Td Vaccines (3 - Td or Tdap) 08/11/2034 08/11/2024, 11/24/2013, 12/11/2005 Hepatitis B Vaccines Completed 08/19/2007, 02/17/2007, 01/17/2007 Pneumococcal Vaccine: 50+ Years Completed 07/09/2017, 07/16/2016, 04/02/2014 Zoster Vaccines Completed 09/11/2022, 02/2023, 06/30/2022, Additional history exists COVID-19 Vaccine Completed 06/08/2024, , 10/16/2021, Additional history exists Influenza Vaccine Completed 06/08/2024, , 06/30/2022, Additional history exists HIB Vaccines Aged Out No longer eligi ble based on patient's age to complete this topic HPV Vaccines Aged Out No longer eligi ble based on patient's age to complete this topic Hepatitis A Vaccines Aged Out No long er eligible based on patient's age to complete this topic IPV Vaccines Aged Out No longer eligi ble based on patient's age to complete this topic Meningococcal Vaccine Aged Out No griselda karli eligible based on patient's age to complete this topic RSV under 20 months Aged Out No longe r eligible based on patient's age to complete this topic Rotavirus Vaccines Aged Out No longer eligible based on patient's age to complete this topic Procedures Procedure Name Priority Date/Time Associated Diagnosis Comments CBC WITH AUTO DIFFERENTIAL Routine 12/27/2024 4:25 PM EDT Unintentional weight loss POCT GLUCOSE Routine 12/27/2024 4:21 PM EDT Type 2 diabetes mellitus without complication, without long-term current use of insulin ([facility]) POCT GLYCATED HEMOGLOBIN, TOTAL Routine 12/27/2024 4:19 PM EDT Type 2 diabetes mellitus without complication, without long-term current use of insulin ([facility]) LIPID PANEL, STANDARD Routine 08/11/2024 10:21 AM EST Type 2 diabetes mellitus without complication, without long-term current use of insulin ([facility]) BI MAMMOGRAM SCREENING TOMOSYNTHESIS BILATERAL Routine 06/30/2024 10:00 AM EDT ALBUMIN, RANDOM URINE W/CREATININE Routine 05/13/2023 9:25 AM EDT PANORAMIC RADIOGRAPHIC IMAGE Routine 05/11/2023 11:30 AM EDT PERIODIC ORAL EVALUATION - ESTABLISHED PATIENT Routine 05/11/2023 11:30 AM EDT HM COLONOSCOPY Routine 08/19/2020 from Last 3 Months or Most Recently Relevant to Health Maintenance Results * (ABNORMAL) CBC auto differential (12/27/2024 4:25 PM EDT) White Blood Count 9.5 4.8 - 10.8 X10*3/uL [facility] Red Blood Count 3.66(L) 4.20 - 5.50 X10*6/uL [facility] Hemoglobin 9.9(L) 12.0 - 16.0 g/dl [facility] Hematocrit 31.0(L) 37.0 - 47.0 % [facility] Mean Corpuscular Volume 84.7 80.0 - 98.0 fL [facility] Mean Corpuscular Hemoglobin 27.0 27.0 - 33.0 pg [facility] Mean Corpuscular HGB Conc 31.9 31.0 - 35.0 g/dl [facility] Red Cell Distribution Width 13.2 11.0 - 16.0 % [facility] Platelet Count 246 160 - 400 X10*3/uL [facility] Mean Platelet Volume 10.1 9.4 - 12.3 fL [facility] Neutrophils Percent Auto 79.8(H) 45 - 73 % [facility] Imm Gran Pct Auto 0.7(H) 0.0 - 0.4 % [facility] Lymphocytes Percent Auto 13.9(L) 20 - 40 % [facility] Monocytes Percent Auto 5.3 2 - 11 % [facility] Eosinophils Percent Auto 0.0 0 - 4 % [facility] Basophils Percent Auto 0.3 0 - 2 % [facility] NRBC Pct Auto 0.0 0.0 - 0.2 /100WBC [facility] Neutrophils Absolute Auto 7.6 2.0 - 8.3 x10*3/uL [facility] Imm Gran Abs Auto 0.07(H) 0.00 - 0.03 X10*3/uL [facility] Lymphocytes Absolute Auto 1.3 1.2 - 4.9 X10*3/uL [facility] Monocytes Absolute Auto 0.5 0.1 - 1.2 X10*3/uL [facility] Eosinophils Absolute Auto 0.0 0.0 - 0.4 X10*3/uL [facility] Basophils Absolute Auto 0.0 0.0 - 0.2 X10*3/uL [facility] NRBC Abs Auto 0.000 0.0 - 0.012 X10*3/uL [facility] Blood Venous blood specimen / Unknown 12/27/2024 4:25 PM EDT 12/27/2024 5:45 PM EDT Stewart Perez MD LAB BLOOD ORDERABLES Final Result [facility] [address] [place] [phone] * POCT Glucose (12/27/2024 4:21 PM EDT) Pathologist [facility] Glucose Blood, POC 181 60 - 200 mg/dL QC Media Lot # [id number] Lot# Expiration Date 340,348 Comment:random Blood Capillary blood specimen / Unknown 12/27/2024 4:21 PM EDT Stewart Perez MD POINT OF CARE TEST ENTER/ED IT ORDERABLES Final Result * (ABNORMAL) POCT HGB A1C (12/27/2024 4:19 PM EDT) Pathologist [facility] Hemoglobin A1C 6.0(A) 4.0 - 6.0 % QC Media Lot # [id number] Lot# Expiration Date ,706,535 Blood 12/27/2024 4:19 PM EDT us Stewart Perez MD POINT OF CARE TEST ENTER/ED IT ORDERABLES Final Result * (ABNORMAL) Lipid Panel, Standard (08/11/2024 10:21 AM EST) Triglycerides 119 <150 mg/dL [facility] Comment:Desirable Triglyceri de: less than 150 mg/dLBorderline High Triglyceride 150-199 mg/dLHigh Triglyceride: 200-499 mg/dLVery High Triglyceride: greater than or equal to 5OO mg/dL Cholesterol 66 <200 mg/dL [facility] Comment:Desirable Cholestero l: less than 200 mg/dLBorderline High Cholesterol: 200-239 mg/dLHigh Cholesterol: greater than 239 mg/dL LDL Cholesterol Calculated 12 <100 mg/dL [facility] Comment:Desirable LDL: less than 100 mg/dLNear Optimal/Above Optimal LDL: 110- 129 mg/dLBorderline High LDL: 130-159 mg/dLHigh LDL: 160-189 mg/dLVery High LDL: greater than or equal to 190 mg/dL HDL Cholesterol 31(L) >40 mg/dL [facility] Comment:Desirable HDL: great er than 40 mg/dL Note: This HDL assay may give artificially low results in patients with liver disease. Blood Venous blood specimen / Unknown 08/11/2024 10:21 AM EST 08/11/2024 2:17 PM EST us Estrella Brunner MD LAB BLOOD ORDERABLES Final Resul t [facility] [address] [place] [address] [phone] * BI Mammogram Screening Tomosynthesis Bilateral (06/30/2024 10:00 AM EDT) Anatomical Region Laterality Modality Breast Bilateral Mammography 06/30/2024 10:0 0 AM EDT Narrative 07/11/2024 8:50 AM EST ? [facility] ? [address] ?[place] [address] ? Mammography Report ? Signed ? Patient: Linares,Deedee F ?MR#: [id number] ? : 1950 ?Acct:[id number] ? Age/Sex: 74 / F ?ADM Date: 06/30/24 ? Loc: HO.MAMMO ? Attending Dr: Estrella Brunner MD ? Ordering Physician: Estrella Brunner MD ?Results: 1Negati ?? ve ? Date of Service: 06/30/24 ?Follow Up: 1 Year From Orig ?? inal Mammogram ? Procedure(s): MM tomosynthesis screening BI ?? Accession Number(s): [id number] ? cc: Estrella Brunner MD ? EXAMINATION: ?? MM SCREENING DIGITAL BREAST TOMOSYNTHESIS, BILATERAL ? CLINICAL INFORMATION: ? Screening. Asymptomatic. ? COMPARISON: ?? Mammography: Comparison is made with available priors ? TECHNIQUE: ?? Digital breast mammography with tomosynthesis is performed in both the ?? craniocaudal and mediolateral oblique views along with computer-aided ?? detection (CAD). ? FINDINGS: ?? There are scattered areas of fibroglandular density (ACR BI-RADS breast ?? composition Category b). ? There are no significant masses, abnormal calcifications, or other ?? abnormalities. ? MM/MM tomosynthesis screening BI ?? IMPRESSION: ?? No mammographic evidence of malignancy. ? ASSESSMENT: ? BI-RADS BI-RADS 1 - Negative ? RECOMMENDATION: ?? Routine annual mammography screening. ? 1 year F/U ? This examination should not preclude the clinical evaluation of a ?? suspicious palpable abnormality. ? This patient's information was entered into a reminder system with a ?? target due date for their next mammogram. ? Electronically signed by: ??Louise Coello DO ??07/11/2024 08:47 AM EST ? Dictated By: ?Louise Coello DO ? Signed By: ?<Electronically signed by Louise Coello, DO in OV> ? 07/11/24 0847 ? DD/ 1000 ? TD/TT: 06/30/24 1030 ? Court Bailiff: ? Procedure Note Thien, Shiela - 07/11/2024 [facility] [address] [place] [address] Mammography Report Signed Patient: Deedee Linares FMR#: [id number] : 1Acct:[id number] Age/Sex: 74 / FADM Date: 06/30/24 Loc: HO.MAMMO Attending Dr: Estrella Brunner MD Ordering Physician: Estrella Brunner MDResults: 1Negati ve Date of Service: 06/30/24Follow Up: 1 Year From Orig inal Mammogram Procedure(s): MM tomosynthesis screening BI Accession Number(s): [id number] cc: Estrella Brunner MD EXAMINATION: MM SCREENING DIGITAL BREAST TOMOSYNTHESIS, BILATERAL CLINICAL INFORMATION: Screening. Asymptomatic. COMPARISON: Mammography: Comparison is made with available priors TECHNIQUE: Digital breast mammography with tomosynthesis is performed in both the craniocaudal and mediolateral oblique views along with computer-aided detection (CAD). FINDINGS: There are scattered areas of fibroglandular density (ACR BI-RADS breast composition Category b). There are no significant masses, abnormal calcifications, or other abnormalities. MM/MM tomosynthesis screening BI IMPRESSION: No mammographic evidence of malignancy. ASSESSMENT: BI-RADS BI-RADS 1 - Negative RECOMMENDATION: Routine annual mammography screening. 1 year F/U This examination should not preclude the clinical evaluation of a suspicious palpable abnormality. This patient's information was entered into a reminder system with a target due date for their next mammogram. Electronically signed by: Louise Coello DO 07/11/2024 08:47 AM [facility] Dictated By: Louise Coello DO Signed By: <Electronically signed by Louise Coello DO in OV> 07/11/24 0847 DD/ 1000 TD/TT: 06/30/[address] Bailiff: Estrella Brunner MD IMG BI PROCEDURES Final Result * Albumin, Random Urine W/Creatinine (05/13/2023 9:25 AM EDT) Creatinine, Urine 84.04 mg/dL [facility] Microalbumin Urine <5.0 mg/L [facility] Microalbum Creatinine Ratio Ur TNP <30 ug/mg cr [facility] Comment:Unable to calculate albumin/creatinine ratio due to lowmicroalbumin or creatinine result. 05/13/2023 9:25 AM EDT 05/13/2023 2:23 PM EDT Estrella Brunner MD LAB URINE ORDERABLES Final Resul t [facility] [address] [place] [address] [phone] * Hm Colonoscopy (08/19/2020) Colonoscopy Normal Normal Yolanda Provider HEALTH MAINTENANCE Final Result from Last 3 Months or Most Recently Relevant to Health Maintenance Insurance [facility] MEDICARE ADVANTAGE HMO DENTAL - HSN FULL (MEDICAID) Care Teams Herbarium Worker Relationship Specialty Start Date End Date Estrella Brunner MD [address] [place] [phone] PCP - General Family Medicine 08/17/12 [facility] 06/05/24
--- OUTSIDE RECORDS SUMMARY | 2024-12-27 18:36 | XMS_ITS | Encounter Summary ---
Author Organization [employer] Address [address] [place] [address] Care Team Providers Care Corporate Human Resources Manager Name Role Phone Estrella Brunner MD Primary Care Provider [phone] Reason for Visit * Reason Onset Date Comments Nurse Triage 09/14/2024 Encounter Details Date Type Department Care Team ([facility] st Contact Info) Description 09/14/2024 Telephone [facility] MEDICINE [address] [place] [address] Estrella Brunner MD [address] [place], [place] [phone] Nurse Triage Social History Tobacco Use Types Packs/Day Years [...] past 12 months, has t he electric, [employer], oil or water [employer] threatened to shut off services in your [...] encounter Miscellaneous Notes * Telephone Encounter - Vicky Loving RN - 09/14/2024 4:18 PM EST Call to [facility] 244mg/dL at noon time today. Pt had not taken Dm meds for morning yet. Pt has lost 7.1lbs in a month, 195.6lbs today, last recorded weight was 08/24/24 202.7lbs inhome. Pt on doxycycline for URI started by Pulmo on 09/08/24, see note in chart. Diminished lung sounds and non productive cough. Pulse ox 96% on 2L of O2 . VNA goes in weekly on for COPD management. Call returned to Deedee Linares to triage below regarding elevated BS. Pt had a bagel early in the morning. Per pt had not taken DM meds. Pt denies any sx. No checks since. Pt was on prednisone, but stopped it 2 days ago. Pt advised to return call if evening BS >200mg/dL to speak with NTTS. Pt givenOV with PCP to follow up on weight loss. Per pt not intentional. No changes to appetite. Will forward note as FYI regarding elevated BS . Please advise [facility] Primary care team nurses of any other changes to DM plan of care. Protocol Used: Diabetes - High Blood Sugar (Adult) Protocol-Based Disposition: Home Care Positive Triage Question: * Blood glucose 240 - 300 mg/dL (13.3 - 16.7 mmol/L) * All higher-acuity triage questions were negative Care Advice Discussed: * High Blood Sugar (Hyperglycemia) * Diabetes Pills * Measure and Record Your Blood Glucose * Daily Blood Glucose Goals * Reasons To Call Back - Blood glucose over 300 mg/dL (16.7 mmol/L), two or more times in a row. - Vomiting lasting over 4 hours or unable to drink any fluids - Rapid breathing occurs - You have more questions - You become worse * Telephone Encounter - Jose Kan - 09/14/2024 3:58 PM EST Symptoms: High Blood Sugar - Caller Reports, Loss of Appetite Outcome: Schedule an urgent appointment (within 1 hour) or talk to a nurse or provider soon Reason: Getting worse The caller accepted this outcome. documented in this encounter Plan of Treatment Not on file documented as of this encounter Visit Diagnoses Not on filedocumented in this encounter Additional Health Concerns Assessment Noted Time PHQ-9 Depression Total Score: 1 04/29/20 23 10:40 AM EDT documented as of this encounter Care Teams Corporate Human Resources Manager Relationship Specialty Start Date End Date Estrella Brunner MD [address] [place] [id number] PCP - General Family Medicine 08/17/12 Mallory 06/05/24 documented as of this encounter
[2024-12-27 18:47] LABS: Alanine Aminotransferase < 6 U/L (0-31); Albumin Level 3.7 g/dL (3.5-5.0); Alkaline Phosphatase 84 U/L (39-117); Anion Gap 14 (12-20); Aspartate Amino Transferase 14 U/L (5-31); Bilirubin Total 0.3 mg/dL (0.0-1.0); Blood Urea Nitrogen 18 mg/dL (9-16); Calcium 9.3 mg/dL (8.4-10.2); Carbon Dioxide 26 mmol/L (22-29); Chloride 102 mmol/L (96-108); Estimated Glomerular Filt Rate > 60; Glucose Random 129 mg/dL (60-115); Potassium 3.4 mmol/L (3.3-5.1); Sodium 139 mmol/L (135-145); Total Protein 6.1 g/dL (6.5-8.0)
[2024-12-27 18:55] LABS: TSH reflex Free T4 1.29 uIU/mL (0.32-4.0)
[2024-12-28 04:23] LABS: ~HepC Num1 0.12 S/CO (0.00-0.79); ~Hepatitis C Antibody Nonreactive (Nonreactive)
== END 2024-12-27 16:24 | disposition home or self-care (01) ==
LOC: HO.CHCLDS 16:23
PROVIDERS: Visit Provider Internal Medicine
DX: R63.4 Abnormal weight loss (principal)
CPT/HCPCS: 36415; 80053; 84443; 85025; 86803

== ENCOUNTER 2025-01-05 13:37 | Outpatient (AMB) | payer MEDICARE, SELFPAY ==
[2025-01-05 13:39] VITALS: BP 138/78; PULSE 90; O2SAT 94; BMI 34.6
--- NOTE | 2025-01-05 13:39 | A.OFFVIS_ITS ---
Vital Signs 01/05/25 13:39 Height 5 ft 1 in Weight 183 lb BMI 34.6 BP 138/78 Blood Pressure Location Rt brachial Position Sitting Pulse 90 Pulse Source Doppler Pulse Oximetry (%) 94 Oxygen Delivery Method Nasal Cannula Oxygen Flow Rate 3 Intake Visit Reasons: copd Allergies amoxicillin Allergy (Verified 07/28/24 10:46) Difficulty Breathing levofloxacin [From Levaquin] Adverse Reaction (Intermediate, Verified 07/28/24 10:46) Muscle Pain Pain Med Sensitivity Allergy (Unknown, Uncoded 07/28/24 10:46) none HPI HPI copd: Details: 74-year-old lady, former 40+ pack-year smoker, quit 2013, now followed for environmental allergies and asthma/COPD overlap syndrome.? She tried Xolair, but it was discontinued secondary to not having any symptomatic benefit. She continues to use Trelegy, theophylline and albuterol MDI with good based control of her asthma/COPD overlap symptoms and as needed loratadine and Dymista with allergic component. She requires supplemental oxygen at 2 L with rest and 4 L with exertion. Patient does complain of another bout of cough, nonproductive at this time. [facility] Medical History (Updated 09/08/24 @ 09:06 by Rachel Pearson PA-C) Supplemental oxygen dependent Personal history of nicotine dependence Asthma-COPD overlap syndrome Pulmonary hypertension Acute exacerbation of congestive heart failure Acute respiratory failure with hypoxia Pneumonia Hyperlipidemia MRSA (methicillin resistant Staphylococcus aureus) Anxiety and depression History of blood transfusion Myocardial infarct Diarrhea Arthritis Diabetes GERD (gastroesophageal reflux disease) Coronary artery disease Surgical History Hx of colonoscopy Hx of tonsillectomy Hx of cholecystectomy H/O: hysterectomy History of total right knee replacement (TKR) History of cardiac catheterization Family History Father Colon cancer Social History Household Members: None Housing: Apartment Are you a primary lawn care professional to a significant other at home: No Do you presently have visiting nurse or other home services: Yes Unable to assess alcohol history related to: Unable to respond Alcohol intake: unknown Patient Tobacco Use Status: Former Tobacco user Tobacco use type: Cigarette Years Smoked: 40 Second Hand Smoke Exposure: No Advance Directives Date on File: 12/25/21 service: No Current occupational status: retired Review of Systems Const Denies daytime sleepiness, Denies excessive sweating, Denies fatigue, Denies fever(s), Denies lethargy, Denies malaise, Denies night sweats, Denies snoring and Denies weight loss Eyes Denies blurry vision and Denies itchy eyes ENT Denies nasal congestion, Denies post nasal drip, Denies sinus pain, Denies sinus pressure and Denies other ( Thrush) Card Denies chest pain, Denies pedal edema, Denies dyspnea, Denies orthopnea and Denies paroxysmal nocturnal dyspnea Resp Reports cough, Denies hemoptysis, Denies excessive phlegm production, Denies dyspnea, Denies snoring and Denies wheezing GI Denies abdominal pain and Denies heartburn Musc Denies myalgias, Denies arthralgias and Denies joint swelling Skin/Breast Denies rash Neuro Denies memory loss and Denies seizure-like activity Psych Denies abnormal sleep pattern, Denies anxiety and Denies memory loss Endo Denies excessive sweating, Denies fatigue and Denies heat intolerance Zenon/Lymph Denies easy bruising Aller/Immun Denies itchy eyes, Denies seasonal rhinorrhea and Denies wheezing Physical Exam Vital Signs: Last Vital Signs Pulse 90 01/05/25 13:39 BP 138/78 01/05/25 13:39 Pulse Ox 94 01/05/25 13:39 Oxygen Delivery Method Nasal Cannula 01/05/25 13:39 Oxygen Flow Rate 3 01/05/25 13:39 BMI result Body Mass Index 34.6 Const General: no acute distress and alert Nutritional Appearance: not obese Orientation/consciousness: Other orientation findings ( oriented) HEENT Head: Yes atraumatic Eyes General: appearance normal, both eyes and all related structures Sclerae: sclerae normal EOM: EOMs intact bilaterally Neck Neck: Yes supple Lymphatic: no lymphadenopathy noted Resp Effort & Inspection: normal respiratory effort and no use of accessory muscles Auscultation: clear to auscultation bilaterally Cardio Rate: regular rate Rhythm: regular rhythm Heart sounds: no gallops, no murmurs and no rubs Skin General skin exam: other ( warm) Extrem General: No clubbing, No cyanosis and No edema Assessment & Plan Assessment & Plan (1) Asthma-COPD overlap syndrome: Code(s): J44.9 - Chronic obstructive pulmonary disease, unspecified Category: Medical Plan: Reasonable control on current regimen of Trelegy, albuterol, and duo nebs. Cont inue current regimen. (2) Supplemental oxygen dependent: Code(s): Z99.81 - Dependence on supplemental oxygen Category: Medical Plan: Continue supplemental oxygen to maintain O2 saturation of 88-92%. (3) Personal history of nicotine dependence: Comment: (former smoker 40+PYH, quit 2013) Code(s): Z87.891 - Personal history of nicotine dependence Category: Medical Plan: Continue lung cancer screening, next in July of 2025, ordered. Orders: Orders CT lung screening 07/08/25 Z87.891 - Personal history of nicotine dependence Medications: New doxycycline monohydrate 100 mg PO BID 14 tabs 0RF Coding Level of Care Code Est Pt Level 4 (25042) Complex EM visit Add On G2211 Diagnoses Asthma-COPD overlap syndrome J44.9 Supplemental oxygen dependent Z99.81 Personal history of nicotine dependence Z87.891
--- OUTSIDE RECORDS SUMMARY | 2025-01-05 13:53 | XMS_ITS | Encounter Summary ---
Author Organization [employer] Address [address] [place] [address] Care Team Providers Care Battery Assembler Plastic Name Role Phone Estrella Brunner MD Primary Care Provider [phone] Reason for Visit * Reason Onset Date Comments Nurse Triage 09/14/2024 Encounter Details Date Type Department Care Team ([facility] st Contact Info) Description 09/14/2024 Telephone [facility] MEDICINE [address] [place] [address] Estrella Brunner MD [address] [place], [place] [phone] Nurse Triage Social History Tobacco Use Types [...] past 12 months, has t he electric, [employer], oil or water [employer] threatened to shut off services in your [...] FYI regarding elevated BS . Please advise [facility] Primary care team nurses of any [...] documented as of this encounter Care Teams Battery Assembler Plastic Relationship Specialty Start Date End Date Estrella Brunner MD [address] [place] [phone] PCP - General Family Medicine 08/17/12 Mallory 06/05/24 documented as of this encounter
--- OUTSIDE RECORDS SUMMARY | 2025-01-05 13:53 | XMS_ITS | Clinical Summary ---
Author Organization [facility] Address [address] [place] [address] Phone Care Team Providers Care Trolley Wire Installer Name Role Phone Unavailable Primary Care Provider [...] and evening 2 Active ergocalciferol 1.25 MG (28951 UT) capsule TAKE 1 CAPSULE BY MOUTH [...] Only [facility] [address] [place] [phone] Alf Mendenhall MD 12/20/2024 Refill [facility] [address] [address] [place] [phone] Alf Mendenhall MD 11/16/2024 Refill [facility] [address] [place] [phone] Alf Mendenhall MD from Last 3 Months [...] Visit [facility] [address] [place] [address] Alf Mendenhall MD [address] [facility] [address] [place] [address] Health Maintenance Due Date Last Done Comments [...] order comments [place] [address] * Albumin, urine, random (12/21/2024 11:11 AM [...] ORDERABLES Final Re sult Performing Organization Address [facility] Co de Phone Number HOLLUIS ARMANDO See order comments [place] [address] * (ABNORMAL) Urinalysis with microscopic (12/21/2024 11:11 AM EDT) Color Urine Yellow See orde r comments Appearance Urine Cloudy See order comments pH Urine 5.5 5.0 - 9.0 See order comments Glucose Urine Negative Negative mg/dL See order comments Blood, Urine Negative Negative See ord er comments Specific [place] Urine 1.015 1.005 - 1.025 See order [...] order comments [place] [address] * Creatinine (12/21/2024 9:59 AM EDT) Creatinine Serum 0.81 0.5 - 1.4 mg/dL See order comments eGFR >60 See order comments Comment: Chronic Kidney Disease: ??Estimated GFR < 60 mL/min/1.73m2 Severe Kidney Disease: ??Estimated GFR < 15 mL/min/1.73m2 12/21/2024 9:59 AM EDT 12/21/2024 9:59 AM EDT us Alf Mendenhall MD LAB BLOOD ORDERABLES Final Re sult Performing Organization Address [facility] Phone Number [place] See order comments [place] [address] * BUN (12/21/2024 9:59 AM EDT) BUN 13 9 - 16 mg/dL See order comments 12/21/2024 9:59 AM EDT 12/21/2024 9:59 AM EDT us Alf Mendenhall MD LAB BLOOD ORDERABLES Final Re sult Performing Organization Address [facility] Phone Number [place] See order comments [place] [address] * Calcium (12/21/2024 9:59 AM EDT) Calcium 9.4 8.4 - 10.2 mg/dL See order comments 12/21/2024 9:59 AM EDT 12/21/2024 9:59 AM EDT us Alf Mendenhall MD LAB BLOOD ORDERABLES Final Re sult Performing Organization Address [facility] Phone Number [place] See order comments [place] [address] * Electrolyte panel (12/21/2024 9:59 AM EDT) [...] order comments [place] [address] from Last 3 Months Insurance [facility] Medicare Medicare
--- OUTSIDE RECORDS SUMMARY | 2025-01-05 13:53 | XMS_ITS | Encounter Summary ---
Author Organization [facility] Address [address] [place] [address] Phone Care Team Providers Care Biotech Production Specialist Name Role Phone Unavailable Primary Care Provider Unavailabl e Reason for Visit * Reason Comments Med Refill Encounter Details Date Type Department Care Team (Late Contact Info) Description 11/16/2024 Refill [facility] [address] [place] [phone] Alf Mendenhall MD [address] [facility] [address] [place] [address] Social History Tobacco Use Types [...] Upcoming Encounters Date Type Department Care Team ([facility] Contact Info) Description 01/15/2025 1:15 PM EDT Office Visit [facility] [address] [place] [phone] Alf Mendenhall MD [address] [address] documented as of this encounter Visit Diagnoses Not on filedocumented in this encounter
--- OUTSIDE RECORDS SUMMARY | 2025-01-05 13:53 | XMS_ITS | Clinical Summary ---
Author Organization [employer] Address [address] 7[address] [place] [address] Care Team Providers Care Grapple Crew Leader Name Role Phone Estrella Brunner MD Primary Care Provider [phone] Allergies Active Allergy Reactions Criticality Noted Date [...] 24 Active ergocalciferol (Vitamin D2) 1.25 MG (00053 UT) capsule Take 1 capsule by mouth [...] complication, without long-term current use of insulin ([facility]) TEST BLOOD SUGAR TWICE DAILY DIRECTED 50 strip 5 08/25/20 24 Active cyanocobalamin (Vitamin B-12) 1000 MCG tablet TAKE 1 TABLET BY MOUTH EVERY MORNING 30 tablet 11 10/11/19 25 Active Lancets (OneTouch Delica Plus [id number]) misc TEST BLOOD SUGAR TWICE DAILY DIRECTED [...] complication, without long-term current use of insulin ([facility]) Take 1 tablet (850 mg) by mouth [...] Encounters Date Type Department Care Team Description 12/29/2024 Telephone [facility] [address] [place] [address] Stewart Perez MD Results 12/29/2024 Orders Only [facility] [address] [place] [address] Stewart Perez MD Normocytic anemia (Primary Dx) 12/27/2024 3:45 PM EDT Office Visit [facility] [address] [place] [address] Stewart Perez MD Type 2 diabetes mellitus without complication, without long-term current use of insulin ([facility]) (Primary Dx); Unintentional weight loss 12/27/2024 Travel 12/20/2024 Travel 12/20/2024 Refill [facility] [address] [place] [address] Estrella Brunner MD 12/15/2024 Telephone [facility] [address] [place] [address] [phone] Estrella Brunner MD FYI 10/31/2024 Refill [facility] [address] [place] [address] Danie Casanova MD 10/31/2024 Refill [facility] [address] [place] [address] Tricia Cox MD 10/31/2024 Refill [facility] [address] [place] [address] Estrella Brunner MD 10/17/2024 Refill [facility] [address] [place] [address] Lisbeth Garcia MD 10/17/2024 Travel 10/13/2024 Refill [facility] [address] [place] [address] Estrella Brunner MD 10/11/2024 Refill [facility] [address] [place], [place] [phone] Estrella Brunner MD from Last 3 Months [...] 1950 Sigmoidoscopy 1950 Alcohol/Substance Use Screening 1963 RSV Patients and Patients Aged 60 years [...] Completed 06/08/2024, , 06/30/2022, Additional history exists Hepatitis C Screening Completed 12/27/2024 HIB Vaccines Aged Out No longer eligi [...] Procedure Name Priority Date/Time Associated Diagnosis Comments TSH W/REFLEX TO FT4 Routine 12/27/2024 4 :25 PM EDT Unintentional weight loss HEPATITIS C AB W/REFL TO HCV RNA, QN, PCR Routine 12/27/2024 4:25 PM EDT Unintentional weight loss CBC WITH AUTO DIFFERENTIAL Routine 12/27/2024 4:25 PM EDT Unintentional weight loss COMPREHENSIVE METABOLIC PANEL Routine 12/27/2024 4:25 PM EDT Unintentional weight loss POCT GLUCOSE Routine 12/27/2024 4:21 PM EDT Type 2 diabetes mellitus without complication, without long-term current use of insulin (CMS/HCC) POCT GLYCATED HEMOGLOBIN, TOTAL Routine 12/27/2024 4:19 PM EDT Type 2 diabetes mellitus without complication, without long-term current use of insulin (CMS/HCC) LIPID PANEL, STANDARD Routine 08/11/2024 10:21 AM EST Type 2 diabetes mellitus without complication, without long-term current use of insulin (CMS/HCC) BI MAMMOGRAM SCREENING TOMOSYNTHESIS BILATERAL Routine 06/30/2024 10:00 AM EDT ALBUMIN, RANDOM URINE W/CREATININE Routine 05/13/2023 9:25 AM EDT PANORAMIC RADIOGRAPHIC IMAGE Routine 05/11/2023 11:30 AM EDT PERIODIC ORAL EVALUATION - ESTABLISHED PATIENT Routine 05/11/2023 11:30 AM EDT HM COLONOSCOPY Routine 08/19/2020 from Last 3 Months or Most Recently Relevant to Health Maintenance Results * TSH W/Reflex to FT4 (12/27/2024 4:25 PM EDT) Pathologist [facility] TSH reflex Free T4 1.29 0.32 - 4.0 uIU/mL [facility] Blood Venous blood specimen / Unknown 12/27/2024 4:25 PM EDT 12/27/2024 5:45 PM EDT us Stewart Perez MD LAB BLOOD ORDERABLES Final Result [facility] [address] [place] [phone] * (ABNORMAL) CBC auto differential (12/27/2024 4:25 PM EDT) White Blood Count 9.5 4.8 - 10.8 X10*3/uL [facility] Red Blood Count 3.66(L) 4.20 - 5.50 X10*6/uL [facility] Hemoglobin 9.9(L) 12.0 - 16.0 g/dl [facility] Hematocrit 31.0(L) 37.0 - 47.0 % [facility] Mean Corpuscular Volume 84.7 80.0 - 98.0 fL [facility] Mean Corpuscular Hemoglobin 27.0 27.0 - 33.0 pg [facility] Mean Corpuscular HGB Conc 31.9 31.0 - 35.0 g/dl [facility] Red Cell Distribution Width 13.2 11.0 - 16.0 % [facility] Platelet Count 246 160 - 400 X10*3/uL [facility] Mean Platelet Volume 10.1 9.4 - 12.3 fL [facility] Neutrophils Percent Auto 79.8(H) 45 - 73 % [facility] Imm Gran Pct Auto 0.7(H) 0.0 - 0.4 % [facility] Lymphocytes Percent Auto 13.9(L) 20 - 40 % [facility] Monocytes Percent Auto 5.3 2 - 11 % [facility] Eosinophils Percent Auto 0.0 0 - 4 % [facility] Basophils Percent Auto 0.3 0 - 2 % [facility] NRBC Pct Auto 0.0 0.0 - 0.2 /100WBC [facility] Neutrophils Absolute Auto 7.6 2.0 - 8.3 x10*3/uL [facility] Imm Gran Abs Auto 0.07(H) 0.00 - 0.03 X10*3/uL [facility] Lymphocytes Absolute Auto 1.3 1.2 - 4.9 X10*3/uL [facility] Monocytes Absolute Auto 0.5 0.1 - 1.2 X10*3/uL [facility] Eosinophils Absolute Auto 0.0 0.0 - 0.4 X10*3/uL [facility] Basophils Absolute Auto 0.0 0.0 - 0.2 X10*3/uL [facility] NRBC Abs Auto 0.000 0.0 - 0.012 X10*3/uL [facility] Blood Venous blood specimen / Unknown 12/27/2024 4:25 PM EDT 12/27/2024 5:45 PM EDT Stewart Perez MD LAB BLOOD ORDERABLES Final Result Performing Organization Address [facility] Co de Phone Number [facility] [address] [place] [phone] * Hepatitis C Antibody with Reflex to HCV, RNA, Quantitative, Real-Time PCR (12/27/2024 4:25 PM EDT) [facility] Hepatitis C Antibody Nonreactive Nonreactive [facility] Comment:Antibodies to HCV no t detected; does not exclude early acuteHCV infection. Blood Venous blood specimen / Unknown 12/27/2024 4:25 PM EDT 12/27/2024 5:45 PM EDT Stewart Perez MD LAB BLOOD ORDERABLES Final Result Performing Organization Address [facility] de Phone Number [facility] [address] [place] [phone] * (ABNORMAL) Comprehensive Metabolic Panel (12/27/2024 4:25 PM EDT) [facility] Sodium 139 135 - 145 mmol/L [facility] Potassium 3.4 3.3 - 5.1 mmol/L [facility] Chloride 102 96 - 108 mmol/L [facility] Carbon Dioxide 26 22 - 29 mmol/L [facility] Anion Gap 14 12 - 20 [facility] Urea Nitrogen (BUN) 18(H) 9 - 16 mg/dL [facility] Creatinine, Serum 0.77 0.5 - 1.4 mg/dL [facility] Estimated Glomerular Filt Rate >60 [facility] Comment:Chronic Kidney Disea se: Estimated GFR < 60 mL/min/1.01k8Goewuv Kidney Disease: Estimated GFR < 15 mL/min/1.73m2 Glucose 129(H) 60 - 115 mg/dL [facility] Calcium 9.3 8.4 - 10.2 mg/dL [facility] Bilirubin, Total 0.3 0.0 - 1.0 mg/dL [facility] Aspartate Amino Transferase 14 5 - 31 U/L [facility] Alanine Aminotransferase <6 0 - 31 U/L [facility] Total Protein 6.1(L) 6.5 - 8.0 g/dL [facility] Albumin Level 3.7 3.5 - 5.0 g/dL [facility] Alkaline Phosphatase 84 39 - 117 U/L [facility] Blood Venous blood specimen / Unknown 12/27/2024 4:25 PM EDT 12/27/2024 5:45 PM EDT Stewart Perez MD LAB BLOOD ORDERABLES Final Result [facility] [address] [place] [phone] * POCT Glucose (12/27/2024 4:21 PM EDT) Glucose Blood, POC 181 60 - 200 mg/dL [employer] Lot # [id number] Lot# Expiration Date 58 Comment:random Blood Capillary blood specimen / Unknown 12/27/2024 4:21 PM EDT Stewart Perez MD POINT OF CARE TEST ENTER/ED IT ORDERABLES Final Result * (ABNORMAL) POCT HGB A1C (12/27/2024 4:19 PM EDT) Hemoglobin A1C 6.0(A) 4.0 - 6.0 % [employer] Lot # [id number] Lot# Expiration Date Blood 12/27/2024 4:19 PM EDT us Stewart Perez MD POINT OF CARE TEST ENTER/ED IT ORDERABLES Final Result * (ABNORMAL) Lipid Panel, Standard (08/11/2024 10:21 AM EST) Triglycerides 119 <150 mg/dL [facility] Comment:Desirable Triglyceri de: less than 150 mg/dLBorderline High Triglyceride 150-199 mg/dLHigh Triglyceride: 200-499 mg/dLVery High Triglyceride: greater than or equal to 5OO mg/dL Cholesterol 66 <200 mg/dL [facility] Comment:Desirable Cholestero l: less than 200 mg/dLBorderline High Cholesterol: 200-239 mg/dLHigh Cholesterol: greater than 239 mg/dL LDL Cholesterol Calculated 12 <100 mg/dL [facility] Comment:Desirable LDL: less than 100 mg/dLNear Optimal/Above Optimal LDL: 110- 129 mg/dLBorderline High LDL: 130-159 mg/dLHigh LDL: 160-189 mg/dLVery High LDL: greater than or equal to 190 mg/dL HDL Cholesterol 31(L) >40 mg/dL [facility] Comment:Desirable HDL: great er than 40 mg/dL Note: This HDL assay may give artificially low results in patients with liver disease. Blood Venous blood specimen / Unknown 08/11/2024 10:21 AM EST 08/11/2024 2:17 PM EST us Estrella Brunner MD LAB BLOOD ORDERABLES Final Resul t [facility] [address] [place], [place] [phone] * BI Mammogram Screening Tomosynthesis Bilateral (06/30/2024 10:00 AM EDT) Anatomical Region Laterality Modality Breast Bilateral Mammography 06/30/2024 10:0 0 AM EDT Narrative 07/11/2024 8:50 AM EST ? [facility] ? [address] ?[place] [address] ? Mammography Report ? Signed ? Patient: Linares,Deedee F ?MR#: [id number] ? : 1950 ?Acct:[id number] ? Age/Sex: 74 / F ?ADM Date: 06/30/24 ? Loc: HO.MAMMO ? Attending Dr: Estrella Brunner MD ? Ordering Physician: Estrella Brunner MD ?Results: 1Negati ?? ve ? Date of Service: 06/30/24 ?Follow Up: 1 Year From Orig ?? inal Mammogram ? Procedure(s): MM tomosynthesis screening BI ?? Accession Number(s): [id number] ? cc: Estrella Brunner MD ? EXAMINATION: [...] DD/ 1000 ? TD/TT: 06/30/24 1030 ? Wash Worker: ? Procedure Note Thien, Image - 07/11/2024 [facility] [address] [place] [address] Mammography Report Signed Patient: Deedee Linares FMR#: [id number] : 1950cct:[id number] Age/Sex: 74 / FADM Date: 06/30/24 Loc: HO.MAMMO Attending Dr: Estrella Brunner MD Ordering Physician: Estrella Brunner MDResults: 1Negati ve Date of Service: 06/30/24Follow Up: 1 Year From Orig inal Mammogram Procedure(s): MM tomosynthesis screening BI Accession Number(s): [id number] cc: Estrella Brunner MD EXAMINATION: MM SCREENING [...] by: Louise Coello DO 07/11/2024 08:47 AM EST Dictated By: Louise Coello DO Signed By: <Electronically signed by Louise Coello DO in OV> 07/11/24 0847 DD/ 1000 TD/TT: 06/30/24 1030 Wash Worker: Estrella Brunner MD IMG BI PROCEDURES Final Result * Albumin, Random Urine W/Creatinine (05/13/2023 9:25 AM EDT) Creatinine, Urine 84.04 mg/dL [facility] Microalbumin Urine <5.0 mg/L [facility] Microalbum Creatinine Ratio Ur TNP <30 ug/mg cr [facility] Comment:Unable to calculate albumin/creatinine ratio due to lowmicroalbumin or creatinine result. 05/13/2023 9:25 AM EDT 05/13/2023 2:23 PM EDT Estrella Brunner MD LAB URINE ORDERABLES Final Resul t [facility] [address] [place], [place] [phone] * Colonoscopy (08/19/2020) Colonoscopy Normal Normal Yolanda Provider HEALTH MAINTENANCE Final Result from Last 3 Months or Most Recently Relevant to Health Maintenance Insurance [address] [place] [id number] [employer] MEDICARE ADVANTAGE HMO DENTAL - HSN FULL ([place]) [place] [id number] [place] [address] [place] [id number] Care Teams Grapple Crew Leader Relationship Specialty Start Date End Date Estrella Brunner MD [address] [place] [address] [place] [address] PCP - General Family Medicine [facility]
--- OUTSIDE RECORDS SUMMARY | 2025-01-05 13:53 | XMS_ITS | Encounter Summary ---
Author Organization [employer] Address [address] [place] [address] Care Team Providers Care Vault Teller Name Role Phone Estrella Brunner MD Primary Care Provider [phone] Encounter Details Date Type Department Care Team ([facility] st Contact Info) Description 06/14/2024 Telephone [facility] [address] [place], [place] [phone] Estrella Brunner MD [address] [place], [place] [phone] Social History Tobacco Use Types Packs/Day Years [...] EDT Tc from Roberta nurse practitioner with [facility] stating pt reported is having hypoglycemia 2-3 a week. If any questions contact Roberta [phone] documented in this encounter Plan of Treatment Not on file documented as of this encounter Visit Diagnoses Not on filedocumented in this encounter Additional Health Concerns Assessment Noted Time PHQ-9 Depression Total Score: 1 04/29/20 23 10:40 AM EDT documented as of this encounter Care Teams Vault Teller Relationship Specialty Start Date End Date Estrella Brunner MD [address] [place] [address] PCP - General Family Medicine 08/17/12 [facility] 06/05/24 documented as of this encounter
--- OUTSIDE RECORDS SUMMARY | 2025-01-05 13:53 | XMS_ITS | Encounter Summary ---
Author Organization [employer] Address [address] [place] [address] Care Team Providers Care Airline Counter Agent Name Role Phone Estrella Brunner MD Primary Care Provider [phone] Encounter Details Date Type Department Care Team (Late st Contact Info) Description 10/16/2022 Orders Only [facility] [address] [place] [address] Rissa Su LPN Social History Tobacco Use [...] on filedocumented in this encounter Care Teams Airline Counter Agent Relationship Specialty Start Date End Date Estrella Brunner MD [address] [place] [address] PCP - General Family Medicine 08/17/12 [facility] 06/05/24 documented as of this encounter
--- OUTSIDE RECORDS SUMMARY | 2025-01-05 13:53 | XMS_ITS | Encounter Summary ---
Author Organization [employer] Address [address] [place] [address] Care Team Providers Care Acid Dipper Name Role Phone Estrella Brunner MD Primary Care Provider [phone] Reason for Visit * Reason Onset Date Comments callback request 07/11/2024 Encounter Details Date Type Department Care Team ([facility] Contact Info) Description 07/11/2024 Telephone [facility] [address] [place] [address] Estrella Brunner MD [address] [place], [place] [phone] callback request Social History Tobacco Use Types [...] documented as of this encounter Care Teams Acid Dipper Relationship Specialty Start Date End Date Estrella Brunner MD [address] [place] [address] PCP - General Family Medicine 08/17/12 [facility] 06/05/24 documented as of this encounter
--- OUTSIDE RECORDS SUMMARY | 2025-01-05 13:53 | XMS_ITS | Encounter Summary ---
Author Organization [employer] Address [address] [facility] [address]t [place] [address] Care Team Providers Care Porcelain Slusher Name Role Phone Estrella Brunner MD Primary Care Provider Reason for Visit * Reason Comments Med Refill Encounter Details Date Type Department Care Team ([facility] st Contact Info) Description 12/16/2022 Refill [facility] [address] [place] [address] Estrella Brunner MD [address] [place], [place] [phone] Social History Tobacco Use Types Packs/Day Years [...] on filedocumented in this encounter Care Teams Porcelain Slusher Relationship Specialty Start Date End Date Estrella Brunner MD [address] [place] [address] PCP - General Family Medicine 08/17/12 [facility] 06/05/24 documented as of this encounter
--- OUTSIDE RECORDS SUMMARY | 2025-01-05 13:53 | XMS_ITS | Encounter Summary ---
Author Organization [employer] Address [address] [place] [address] Care Team Providers Care Rock Contractor Name Role Phone Estrella Brunner MD Primary Care Provider [phone] Encounter Details Date Type Department Care Team ([facility] st Contact Info) Description 12/29/2024 Orders Only [facility]S [address] [place], [place] [phone] Stewart Perez MD [address] [place] [address] Normocytic anemia (Primary Dx) Social History Tobacco Use Types Packs/Day Years [...] as of this encounter Plan of Treatment Scheduled Orders Name Type Priority Associated Diagnoses Orde r Schedule Iron And Total Iron Binding Capacity Lab Routine Normocytic anemia Expected: 12/29/2024, Expires: 12/29/2025 Ferritin Lab Routine Normocytic anemia Expected: 12/29/2024, Expires: 12/29/2025 Vitamin B12/Folate, Serum Panel Lab Routine Normocytic anemia Expected: 12/29/2024, Expires: 12/29/2025 documented as of this encounter Visit Diagnoses Diagnosis Normocytic anemia- Primary Unspecified anemia documented in this encounter Additional Health Concerns Assessment Noted Time PHQ-9 Depression Total Score: 1 04/29/20 23 10:40 AM EDT documented as of this encounter Care Teams Rock Contractor Relationship Specialty Start Date End Date Estrella Brunner MD [address] [place] [address] PCP - General Family Medicine 08/17/12 [facility] 06/05/24 documented as of this encounter
--- OUTSIDE RECORDS SUMMARY | 2025-01-05 13:53 | XMS_ITS | Encounter Summary ---
Author Organization [employer] Address [address] [place] [address] Care Team Providers Care Imaging Assistant Name Role Phone Estrella Brunner MD Primary Care Provider [phone] Encounter Details Date Type Department Care Team ([facility] st Contact Info) Description 01/14/2023 Orders Only [facility] PEDS [address] [place] [address] Linda Arellano LPN Social History Tobacco Use [...] on filedocumented in this encounter Care Teams Imaging Assistant Relationship Specialty Start Date End Date Estrella Brunner MD [address] [place] [address] PCP - General Family Medicine 08/17/12 [facility] 06/05/24 documented as of this encounter
--- OUTSIDE RECORDS SUMMARY | 2025-01-05 13:53 | XMS_ITS | Encounter Summary ---
Author Organization [employer] Address [address] [place] [address] Care Team Providers Care Linen Room Custodian Name Role Phone Estrella Brunner MD Primary Care Provider [phone] Reason for Visit * Reason Onset Date Comments FYI 09/14/2024 Encounter Details Date Type Department Care Team ([facility] st Contact Info) Description 09/14/2024 Telephone [facility] MEDICINE [address] [place] [address] Estrella Brunner MD [address] [place], [place] [phone] FYI Social History Tobacco Use Types Packs/Day [...] documented as of this encounter Care Teams Linen Room Custodian Relationship Specialty Start Date End Date Estrella Brunner MD [address] [place] [address] PCP - General Family Medicine 08/17/12 [facility] 06/05/24 documented as of this encounter
--- OUTSIDE RECORDS SUMMARY | 2025-01-05 13:53 | XMS_ITS | Encounter Summary ---
Author Organization [employer] Address [address] [place] [address] Care Team Providers Care Extraction Operator Name Role Phone Estrella Brunner MD Primary Care Provider [phone] Reason for Visit * Reason Onset Date Comments Referral 12/15/2022 Encounter Details Date Type Department Care Team ([facility] st Contact Info) Description 12/15/[address] [facility] MEDICINE [address] [place] [address] Estrella Brunner MD [address] [place] [address] Referral Social History Tobacco Use Types Packs/Day [...] [facility] Please contact pt at [phone] documented in this encounter Plan of Treatment Not on file documented as of this encounter Visit Diagnoses Not on filedocumented in this encounter Care Teams Extraction Operator Relationship Specialty Start Date End Date Estrella Brunner MD [address] [place] [phone] PCP - General Family Medicine 08/17/12 [facility] 06/05/24 documented as of this encounter
== END 2025-01-05 14:06 | disposition home or self-care (01) ==
LOC: HO.HPS 13:38
PROVIDERS: PCP Student in an Organized Health Care Education/Training Program; Visit Provider Internal Medicine Pulmonary Disease
DX: J44.9 Chronic obstructive pulmonary disease, unspecified (principal); Z99.81 Dependence on supplemental oxygen; Z87.891 Personal history of nicotine dependence
CPT/HCPCS: 99214; G2211

== ENCOUNTER → 2025-01-05 13:37 | Outpatient (BNVA) | payer MEDICARE, SELFPAY | PROVIDERS: PCP Student in an Organized Health Care Education/Training Program; Visit Provider Internal Medicine Pulmonary Disease | DX: J44.89 Other specified chronic obstructive pulmonary disease (principal); Z99.81 Dependence on supplemental oxygen; Z87.891 Personal history of nicotine dependence | CPT/HCPCS: 99212 ==

== ENCOUNTER 2025-01-11 14:47 | Outpatient (AMB) | payer MEDICARE, SELFPAY ==
[2025-01-11 14:52] VITALS: BP 120/78; PULSE 72; BMI 35.0
--- NOTE | 2025-01-11 14:52 | A.OFFVIS_ITS ---
Vital Signs 01/11/25 14:52 Height 5 ft 1 in Weight 185 lb 3.013 oz BMI 35.0 BP 120/78 Blood Pressure Location Rt brachial Position Sitting Pulse 72 Intake Visit Reasons: 6 mth fu (rs) Intake Note: 6 month follow-up feeling good Component Design Engineer Required: No Allergies amoxicillin Allergy (Verified 07/28/24 10:46) Difficulty Breathing levofloxacin [From Levaquin] Adverse Reaction (Intermediate, Verified 07/28/24 10:46) Muscle Pain Pain Med Sensitivity Allergy (Unknown, Uncoded 07/28/24 10:46) none Medication List - Last Reconciled 01/11/25 by Bunny Florez MD aspirin 81 mg PO DAILY atorvastatin 80 mg PO BEDTIME calcium carbonate 1 tab PO DAILY cyanocobalamin (vitamin B-12) 1 tab PO DAILY doxycycline monohydrate 100 mg PO BID ergocalciferol (vitamin D2) 1,250 mcg PO [place] evolocumab (Repatha SureClick) 140 mg subcut Q2W 90 days ezetimibe 10 mg PO DAILY ferrous sulfate 1 tab PO BID msxshoicugo-xvncqawiw-yxpasedg 200-62.5-25 mcg (Trelegy Ellipta) 1 ea PO DAILY furosemide (Lasix) 20 mg PO .prn PRN glipizide 5 mg PO DAILY ibuprofen 600 mg PO Q8H PRN 10 days ipratropium bromide 2 sprays intranasal TID-QID PRN ipratropium-albuterol 0.5 mg-3 mg(2.5 mg base)/3 mL 3 mL inhalation Q4-6H PRN ipratropium-albuterol 20-100 mcg/actuation (Combivent Respimat) 1 puff PO Q4H isosorbide mononitrate ER 30 mg PO DAILY magnesium oxide 400 mg PO BID metformin 850 mg PO BID metoprolol succinate ER (Toprol XL) 25 mg PO DAILY nitroglycerin 1 tab sublingual NEEDED PRN oxybutynin chloride ER 1 tab PO DAILY@1200 pantoprazole 40 mg PO BID sertraline 1 tab PO BEDTIME theophylline ER 400 mg PO DAILY tramadol 50 mg PO Q12H PRN trazodone 1 tab PO BEDTIME walker Folding Front wheeled walker HPI Comments Details: Deedee comes for follow-up. She has been doing well. She has been overall without any hospitalization last 6 months. No worsening shortness of breath. No orthopnea, PND, leg edema. No worsening exertional chest pain. Denies any prolonged palpitation irregular heartbeat. No lightheadedness, syncope. Takes Lasix as need be. [facility] Medical History (Updated 09/08/24 @ 09:06 by Rachel Pearson PA-C) Supplemental oxygen dependent Personal history of nicotine dependence Asthma-COPD overlap syndrome Pulmonary hypertension Acute exacerbation of congestive heart failure Acute respiratory failure with hypoxia Pneumonia Hyperlipidemia MRSA (methicillin resistant Staphylococcus aureus) Anxiety and depression History of blood transfusion Myocardial infarct Diarrhea Arthritis Diabetes GERD (gastroesophageal reflux disease) Coronary artery disease Surgical History Hx of colonoscopy Hx of tonsillectomy Hx of cholecystectomy H/O: hysterectomy History of total right knee replacement (TKR) History of cardiac catheterization Family History Father Colon cancer Social History Household Members: None Housing: Apartment Are you a primary primary health care nurse to a significant other at home: No Do you presently have visiting nurse or other home services: Yes Unable to assess alcohol history related to: Unable to respond Alcohol intake: unknown Patient Tobacco Use Status: Former Tobacco user Tobacco use type: Cigarette Years Smoked: 40 Second Hand Smoke Exposure: No Advance Directives Date on File: 12/25/21 service: No Current occupational status: retired Review of Systems Const Denies chills, Denies fatigue, Denies fever(s), Denies frequent falls, Denies weakness, Denies weight gain and Denies weight loss ENT Denies dizziness Card Denies chest pain, Denies leg edema, Denies lightheadedness, Denies palpitations, Denies dyspnea, Denies dyspnea on exertion, Denies orthopnea and Denies other (loss of consciousness) Resp Denies cough, Denies dyspnea and Denies dyspnea on exertion GI Denies hematochezia and Denies change in stool character Musc Denies abnormal gait, Denies muscle weakness, Denies numbness, Denies radiating pain into limb and Denies tingling Neuro Denies Abnormal speech present, Denies abnormal gait, Denies dizziness, Denies frequent falls, Denies numbness, Denies tingling and Denies weakness Endo Denies fatigue and Denies palpitations Physical Exam Vital Signs: Last Vital Signs Pulse 72 01/11/25 14:52 BP 120/78 01/11/25 14:52 BMI result Body Mass Index 35.0 Const General: cooperative, comfortable, no acute distress, alert and awake Nutritional Appearance: obese morbidly obese Orientation/consciousness: patient oriented x3 Limitations: ambulation with walker HEENT Head: Yes normocephalic and Yes atraumatic Neck Neck: Yes trachea midline, Yes supple and Yes no JVD Resp Effort & Inspection: normal respiratory effort Auscultation: clear to auscultation bilaterally and diminished lung sounds Cardio Jugular venous distension: no JVD Palpation: normal PMI Rate: regular rate Rhythm: regular rhythm Heart sounds: S1 normal heart sound present, S2 normal heart sound present, no click, no gallops and no murmurs GI Auscultation: normal bowel sounds Skin General skin exam: no rashes or lesions noted Neuro General: patient oriented x3 and no focal motor deficits Speech: No Abnormal speech present Extrem General: Yes no clubbing, cyanosis or edema Assessment & Plan Assessment & Plan (1) Coronary artery disease: Comment: s/p stent 2011 Code(s): I25.10 - Atherosclerotic heart disease of [place] coronary artery without angina pectoris Category: Medical Plan: CAD with remote stenting with no symptoms of angina at current point time. No further workup is indicated at this point time. Recommend continue low-dose aspirin therapy. Continue aggressive risk factor modification. Currently on high-intensity statin along with ezetimibe and Repatha therapy. Target goal LDL less than 60 mg/dL. Advise at least annual lipid panel. Blood pressure is currently well optimized. Encouraged to maintain activity level as tolerated. (2) Pulmonary hypertension: Code(s): I27.20 - Pulmonary hypertension, unspecified Category: Medical Plan: Pulmonary hypertension secondary to chronic hypoxemic respiratory failure in addition to obesity as well as in the addition to diastolic dysfunction. Clinically without any signs of congestive heart failure. Continue to use furosemide as need be. Continue treatment of hypoxemic respiratory failure with oxygen therapy on a long-term basis. Encouraged to maintain activity level as tolerated. Avoidance salt loading was discussed. Will follow up in the clinic in 6 months time after an echocardiogram. Thank you for allowing me to partake in her care Orders: Orders CA echo transthoracic complete 6 Months I27.20 - Pulmonary hypertension, unspecified Medications: Changed From furosemide (Lasix) 20 mg PO DAILY PRN 20 tabs 0RF Heart failure symptoms To furosemide (Lasix) 20 mg PO .prn PRN Heart failure symptoms Coding Level of Care Code Est Pt Level 4 (64700) Complex EM visit Add On G2211 Diagnoses Coronary artery disease I25.10 Pulmonary hypertension I27.20
--- OUTSIDE RECORDS SUMMARY | 2025-01-11 15:27 | XMS_ITS | Encounter Summary ---
Author Organization [employer] Address [address] [place] [address] Care Team Providers Care Fret Saw Operator Name Role Phone Estrella Brunner MD Primary Care Provider [phone] Encounter Details Date Type Department Care Team (Late st Contact Info) Description 10/16/2022 Orders Only [facility] CHC MED & PEDS [address] [place], [place] [phone] Rissa Su LPN Social History Tobacco Use [...] on filedocumented in this encounter Care Teams Fret Saw Operator Relationship Specialty Start Date End Date Estrella Brunner MD [address] [place] [address] PCP - General Family Medicine 08/17/12 [facility] 06/05/24 documented as of this encounter
--- OUTSIDE RECORDS SUMMARY | 2025-01-11 15:27 | XMS_ITS | Encounter Summary ---
Author Organization [employer] Address [address] [place] [address] Care Team Providers Care Floor Polisher Name Role Phone Estrella Brunner MD Primary Care Provider [phone] Reason for Visit * Reason Onset Date Comments Nurse Triage 09/14/2024 Encounter Details Date Type Department Care Team ([facility] st Contact Info) Description 09/14/2024 Telephone [facility] [address] [place] [address] Estrella Brunner MD [address] [place], [place] [phone] Nurse Triage Social History Tobacco Use Types [...] t he electric, gas, oil or water [employer] threatened to shut off services in your [...] Pt on doxycycline for URI started by David on 09/08/24, see note in chart. Diminished [...] FYI regarding elevated BS . Please advise [facility] Primary care team nurses of any other [...] documented as of this encounter Care Teams Floor Polisher Relationship Specialty Start Date End Date Estrella Brunner MD [address] [place] [address] PCP - General Family Medicine 08/17/12 [facility] 06/05/24 documented as of this encounter
--- OUTSIDE RECORDS SUMMARY | 2025-01-11 15:27 | XMS_ITS | Encounter Summary ---
Author Organization [employer] Address [address] [place] [address] Care Team Providers Care Artificial Flowers Starcher Name Role Phone Estrella Brunner MD Primary Care Provider [phone] Reason for Visit * Reason Onset Date Comments callback request 07/11/2024 Encounter Details Date Type Department Care Team ([facility] st Contact Info) Description 07/11/2024 Telephone [facility] [address] [place] [address] Estrella Brunner MD [address] [place], [place] [phone] callback request Social History Tobacco Use Types Packs/Day Years Used Date Smoking Tobacco: Former Cigarettes Passive Smoke Exposure: Past Smokeless Tobacco: Never Depression Answer Date Recorded Patient Health Questionnaire-9 Score 1 04/29/2023 Housing Stability Answer Date Recorded What is your housing situation today? I have shelliyduy ahuja 06/21/[address] you [...] documented as of this encounter Care Teams Artificial Flowers Starcher Relationship Specialty Start Date End Date Estrella Brunner MD [address] [facility] [place] [address] PCP - General Family Medicine 08/17/12 [facility] 06/05/24 documented as of this encounter
--- OUTSIDE RECORDS SUMMARY | 2025-01-11 15:27 | XMS_ITS | Clinical Summary ---
Author Organization [facility] Address [address] [place] [address] Phone Care Team Providers Care Pig Caster Name Role Phone Unavailable Primary Care Provider [...] and evening 2 Active ergocalciferol 1.25 MG (56867 UT) capsule TAKE 1 CAPSULE BY MOUTH [...] Only [facility] [address] [place] [phone] Alf Mendenhall MD 12/20/2024 Refill [facility] [address] [facility] [address] [place] [phone] Alf Mendenhall MD 11/16/2024 Refill [facility] [address] [place] [phone] Alf Mendenhall MD from Last 3 Months [...] Visit [facility] [address] [place] [address] Alf Mendenhall MD [address] [facility] [address] [place] [address] Health Maintenance Due Date Last Done Comments [...] order comments [place] [address] * Albumin, urine, random (12/21/2024 11:11 AM [...] ORDERABLES Final Re sult Performing Organization Address City/[facility] Co de Phone Number HOLLUIS ARMANDO See order comments [place] [address] * (ABNORMAL) Urinalysis with microscopic (12/21/2024 11:11 AM EDT) Color Urine Yellow See orde r comments Appearance Urine Cloudy See order comments pH Urine 5.5 5.0 - 9.0 See order comments Glucose Urine Negative Negative mg/dL See order comments Blood, Urine Negative Negative See ord er comments Specific [place] Urine 1.015 1.005 - 1.025 See order [...] order comments [place] [address] * Creatinine (12/21/2024 9:59 AM EDT) Creatinine Serum 0.81 0.5 - 1.4 mg/dL See order comments eGFR >60 See order comments Comment: Chronic Kidney Disease: ??Estimated GFR < 60 mL/min/1.73m2 Severe Kidney Disease: ??Estimated GFR < 15 mL/min/1.73m2 12/21/2024 9:59 AM EDT 12/21/2024 9:59 AM EDT us Alf Mendenhall MD LAB BLOOD ORDERABLES Final Re sult Performing Organization Address [facility] Phone Number [place] See order comments [place] [address] * BUN (12/21/2024 9:59 AM EDT) BUN 13 9 - 16 mg/dL See order comments 12/21/2024 9:59 AM EDT 12/21/2024 9:59 AM EDT us Alf Mendenhall MD LAB BLOOD ORDERABLES Final Re sult Performing Organization Address [facility] Phone Number [place] See order comments [place] [address] * Calcium (12/21/2024 9:59 AM EDT) Calcium 9.4 8.4 - 10.2 mg/dL See order comments 12/21/2024 9:59 AM EDT 12/21/2024 9:59 AM EDT us Alf Mendenhall MD LAB BLOOD ORDERABLES Final Re sult Performing Organization Address [facility] Phone Number [place] See order comments [place] [address] * Electrolyte panel (12/21/2024 9:59 AM EDT) [...] order comments [place] [address] from Last 3 Months Insurance [facility] Medicare Medicare
--- OUTSIDE RECORDS SUMMARY | 2025-01-11 15:27 | XMS_ITS | Encounter Summary ---
Author Organization [facility] Address [address] [place] [address] Phone Care Team Providers Care Horticulturalist Name Role Phone Unavailable Primary Care Provider Unavailabl e Reason for Visit * Reason Comments Med Refill Encounter Details Date Type Department Care Team (Late Contact Info) Description 11/16/2024 Refill [facility] [address] [place] [phone] Alf Mendenhall MD [address] [facility] [address] [place] [address] Social History Tobacco Use Types [...] Upcoming Encounters Date Type Department Care Team ([facility] Contact Info) Description 01/15/2025 1:15 PM EDT Office Visit [facility] [address] [place] [phone] Alf Mendenhall MD [address] [phone] documented as of this encounter Visit Diagnoses Not on filedocumented in this encounter
--- OUTSIDE RECORDS SUMMARY | 2025-01-11 15:27 | XMS_ITS | Encounter Summary ---
Author Organization [employer] Address [address] 7[address] [place] [address] Care Team Providers Care Riprap Placer Name Role Phone Estrella Brunner MD Primary Care Provider [phone] Encounter Details Date Type Department Care Team ([facility] st Contact Info) Description 06/14/2024 Telephone [facility] CHC MED & PEDS [address] [place], [place] [phone] Estrella Brunner MD [address] [place], [place] [phone] Social History Tobacco Use Types Packs/Day Years [...] EDT Tc from Roberta nurse practitioner with [facility] stating pt reported is having hypoglycemia 2-3 a week. If any questions contact Roberta [phone] documented in this encounter Plan of Treatment Not on file documented as of this encounter Visit Diagnoses Not on filedocumented in this encounter Additional Health Concerns Assessment Noted Time PHQ-9 Depression Total Score: 1 04/29/20 23 10:40 AM EDT documented as of this encounter Care Teams Riprap Placer Relationship Specialty Start Date End Date Estrella Brunner MD [address] [place] [address] PCP - General Family Medicine 08/17/12 [facility] 06/05/24 documented as of this encounter
--- OUTSIDE RECORDS SUMMARY | 2025-01-11 15:27 | XMS_ITS | Encounter Summary ---
Author Organization [employer] Address [address] [place] [address] Care Team Providers Care Prior Authorization Technician Name Role Phone Estrella Brunner MD Primary Care Provider [phone] Reason for Visit * Reason Onset Date Comments FYI 09/14/2024 Encounter Details Date Type Department Care Team ([facility] st Contact Info) Description 09/14/2024 Telephone [facility]INE [address] [place] [address] Estrella Brunner MD [address] [place], [place] [phone] FYI Social History Tobacco Use Types Packs/Day [...] 4:00 PM EST Tc nia Lobo from [facility] notifying pt has been losing weight Pt weight -August 24 2024 (202.7) September 14 2024 (195.6) documented in this encounter Plan of Treatment Not on file documented as of this encounter Visit Diagnoses Not on filedocumented in this encounter Additional Health Concerns Assessment Noted Time PHQ-9 Depression Total Score: 1 04/29/20 23 10:40 AM EDT documented as of this encounter Care Teams Prior Authorization Technician Relationship Specialty Start Date End Date Estrella Brunner MD [address] [place] [address] PCP - General Family Medicine 08/17/12 [facility] 06/05/24 documented as of this encounter
--- OUTSIDE RECORDS SUMMARY | 2025-01-11 15:27 | XMS_ITS | Encounter Summary ---
Author Organization [employer] Address [address] [place] [address] Care Team Providers Care Air Traffic Supervisor Name Role Phone Estrella Brunner MD Primary Care Provider [phone] Encounter Details Date Type Department Care Team ([facility] st Contact Info) Description 12/29/2024 Orders Only [facility] MED & PEDS [address] [place], [place] [phone] Stewart Perez MD [address] [place], [place] [phone] Normocytic anemia (Primary Dx) Social History Tobacco [...] documented as of this encounter Care Teams Air Traffic Supervisor Relationship Specialty Start Date End Date Estrella Brunner MD [address] [place] [address] PCP - General Family Medicine 08/17/12 [facility] 06/05/24 documented as of this encounter
--- OUTSIDE RECORDS SUMMARY | 2025-01-11 15:27 | XMS_ITS | Encounter Summary ---
Author Organization [employer] Address [address] [facility] 7[address] [place] [address] Care Team Providers Care Physical Ther Name Role Phone Estrella Brunner MD Primary Care Provider [phone] Reason for Visit * Reason Comments Med Refill Encounter Details Date Type Department Care Team ([facility] Contact Info) Description 12/16/2022 Refill [facility] [address] [place], [place] [phone] Estrella Brunner MD [address] [place] [phone] Social History Tobacco Use Types Packs/Day Years [...] on filedocumented in this encounter Care Teams Physical Ther Relationship Specialty Start Date End Date Esrtella Brunner MD [address] [place] [address] PCP - General Family Medicine 08/17/12 [facility] 06/05/24 documented as of this encounter
--- OUTSIDE RECORDS SUMMARY | 2025-01-11 15:27 | XMS_ITS | Encounter Summary ---
Author Organization [employer] Address [address] [place] [address] Care Team Providers Care Research Engineer Marine Equipment Name Role Phone Estrella Brunner MD Primary Care Provider [phone] Reason for Visit * Reason Onset Date Comments Referral 12/15/2022 Encounter Details Date Type Department Care Team ([facility] Contact Info) Description 12/15/2022 Telephone [facility] [address] [place] [address] Estrella Brunner MD [address] [place] [address] Referral Social History Tobacco Use Types Packs/Day [...] [facility] Please contact pt at [phone] documented in this encounter Plan of Treatment Not on file documented as of this encounter Visit Diagnoses Not on filedocumented in this encounter Care Teams Research Engineer Marine Equipment Relationship Specialty Start Date End Date Estrella Brunner MD [address] [place] [address] PCP - General Family Medicine 08/17/12 [facility] 06/05/24 documented as of this encounter
--- OUTSIDE RECORDS SUMMARY | 2025-01-11 15:27 | XMS_ITS | Encounter Summary ---
Author Organization [employer] Address [address] [place] [address] Care Team Providers Care Sports Apparel Internship Name Role Phone Estrella Brunner MD Primary Care Provider [phone] Encounter Details Date Type Department Care Team (Late st Contact Info) Description 01/14/2023 Orders Only [facility] CHC MED & PEDS [address] [place], [place] [phone] Linda Arellano LPN Social History Tobacco Use [...] on filedocumented in this encounter Care Teams Sports Apparel Internship Relationship Specialty Start Date End Date Estrella Brunner MD [address] [place] [address] PCP - General Family Medicine 08/17/12 [facility] 06/05/24 documented as of this encounter
--- OUTSIDE RECORDS SUMMARY | 2025-01-11 15:27 | XMS_ITS | Clinical Summary ---
Author Organization [employer] Address [address] [place] [address] Care Team Providers Care Motor Vehicle Representative Name Role Phone Estrella Brunner MD Primary Care Provider [phone] Allergies Active Allergy Reactions Criticality Noted Date [...] IN THE EVENING 60 tablet 11 04/27/20 Active ergocalciferol (Vitamin D2) 1.25 MG (08890 UT) capsule Take 1 capsule by mouth [...] complication, without long-term current use of insulin (CMS/[facility]) TEST BLOOD SUGAR TWICE DAILY DIRECTED 50 strip 5 08/25/20 24 Active cyanocobalamin (Vitamin B-12) 1000 MCG tablet TAKE 1 TABLET BY MOUTH EVERY MORNING 30 tablet 11 10/11/19 25 Active Lancets (OneTouch Delica Plus [id number]) misc TEST BLOOD SUGAR TWICE DAILY DIRECTED [...] complication, without long-term current use of insulin ([facility]) Take 1 tablet (850 mg) by [...] Type Department Care Team Description 12/29/2024 Telephone [facility] [address] [place] [address] Stewart Perez MD Results 12/29/2024 Orders Only [facility] [address] [place] [address] Stewart Perez MD Normocytic anemia (Primary Dx) 12/27/2024 3:45 PM EDT Office Visit [facility] [address] [place] [address] Stewart Perez MD Type 2 diabetes mellitus without complication, without long-term current use of insulin ([facility]) (Primary Dx); Unintentional weight loss 12/27/2024 Travel 12/20/2024 Travel 12/20/2024 Refill [facility] [address] [place] [address] Estrella Brunner MD 12/15/2024 Telephone [facility] [address] [place] [phone] Estrella Brunner MD FYI 10/31/2024 Refill [facility] [address] [place] [address] Danie Casanova MD 10/31/2024 Refill [facility] [address], [place] [phone] Tricia Cox MD 10/31/2024 Refill [facility] [address] [place], [place] [phone] Estrella Brunner MD 10/17/2024 Refill [facility] [address], [place] [phone] Lisbeth Garcia MD 10/17/2024 Travel from Last 3 Months Immunizations Name Administration [...] 01/10/2024, Additional history exists Mammogram 06/30/2025 06/30/2024, 100 11/2022, 03/27/2019, Additional history exists Lipid Panel [...] complication, without long-term current use of insulin ([facility]) POCT GLYCATED HEMOGLOBIN, TOTAL Routine 12/27/2024 4:19 [...] W/Reflex to FT4 (12/27/2024 4:25 PM EDT) TSH reflex Free T4 1.29 0.32 - 4.0 uIU/mL [facility] Blood Venous blood specimen / Unknown 12/27/2024 4:25 PM EDT 12/27/2024 5:45 PM EDT us Stewart Perez MD LAB BLOOD ORDERABLES Final Result [facility] [address] [place] [phone] * (ABNORMAL) CBC auto differential (12/27/2024 4:25 PM EDT) White Blood Count 9.5 4.8 - 10.8 X10*3/uL [facility] Red Blood Count 3.66(L) 4.20 - 5.50 X10*6/uL [facility] Hemoglobin 9.9(L) 12.0 - 16.0 g/dl [facility] Hematocrit 31.0(L) 37.0 - 47.0 % [facility] Mean Corpuscular Volume 84.7 80.0 - 98.0 fL [facility] Mean Corpuscular Hemoglobin 27.0 27.0 - 33.0 pg [facility] Mean Corpuscular HGB Conc 31.9 31.0 - 35.0 g/dl [facility] Red Cell Distribution Width 13.2 11.0 - 16.0 % [facility] Platelet Count 246 160 - 400 X10*3/uL [facility] Mean Platelet Volume 10.1 9.4 - 12.3 fL [facility] Neutrophils Percent Auto 79.8(H) 45 - 73 % [facility] Imm Gran Pct Auto 0.7(H) 0.0 - 0.4 % [facility] Lymphocytes Percent Auto 13.9(L) 20 - 40 % [facility] Monocytes Percent Auto 5.3 2 - 11 % [facility] Eosinophils Percent Auto 0.0 0 - 4 % [facility] Basophils Percent Auto 0.3 0 - 2 % [facility] NRBC Pct Auto 0.0 0.0 - 0.2 /100WBC [facility] Neutrophils Absolute Auto 7.6 2.0 - 8.3 x10*3/uL [facility] Imm Gran Abs Auto 0.07(H) 0.00 - 0.03 X10*3/uL [facility] Lymphocytes Absolute Auto 1.3 1.2 - 4.9 X10*3/uL [facility] Monocytes Absolute Auto 0.5 0.1 - 1.2 X10*3/uL [facility] Eosinophils Absolute Auto 0.0 0.0 - 0.4 X10*3/uL [facility] Basophils Absolute Auto 0.0 0.0 - 0.2 X10*3/uL [facility] NRBC Abs Auto 0.000 0.0 - 0.012 X10*3/uL [facility] Blood Venous blood specimen / Unknown 12/27/2024 4:25 PM EDT 12/27/2024 5:45 PM EDT us Stewart Perez MD LAB BLOOD ORDERABLES Final Result Performing Organization Address City/[facility] Co de Phone Number [facility] [address] [place] [phone] * Hepatitis C Antibody with Reflex to HCV, RNA, Quantitative, Real-Time PCR (12/27/2024 4:25 PM EDT) Pathologist [facility] Hepatitis C Antibody Nonreactive Nonreactive [facility] Comment:Antibodies to HCV no t detected; does not exclude early acuteHCV infection. Blood Venous blood specimen / Unknown 12/27/2024 4:25 PM EDT 12/27/2024 5:45 PM EDT Stewart Perez MD LAB BLOOD ORDERABLES Final Result Performing Organization Address [facility] Co de Phone Number [facility] [address] [place] [phone] * (ABNORMAL) Comprehensive Metabolic Panel (12/27/2024 4:25 PM EDT) Pathologist [facility] Sodium 139 135 - 145 mmol/L [facility] Potassium 3.4 3.3 - 5.1 mmol/L [facility] Chloride 102 96 - 108 mmol/L [facility] Carbon Dioxide 26 22 - 29 mmol/L [facility] Anion Gap 14 12 - 20 [facility] Urea Nitrogen (BUN) 18(H) 9 - 16 mg/dL [facility] Creatinine, Serum 0.77 0.5 - 1.4 mg/dL [facility] Estimated Glomerular Filt Rate >60 [facility] Comment:Chronic Kidney Disea se: Estimated GFR < 60 mL/min/[id number] Kidney Disease: Estimated GFR < 15 mL/min/1.73m2 Glucose 129(H) 60 - 115 mg/dL [facility] Calcium 9.3 8.4 - 10.2 mg/dL [facility] Bilirubin, Total 0.3 0.0 - 1.0 mg/dL [facility] Aspartate Amino Transferase 14 5 - 31 U/L [facility] Alanine Aminotransferase <6 0 - 31 U/L [facility] Total Protein 6.1(L) 6.5 - 8.0 g/dL [facility] Albumin Level 3.7 3.5 - 5.0 g/dL [facility] Alkaline Phosphatase 84 39 - 117 U/L [facility] Blood Venous blood specimen / Unknown 12/27/2024 4:25 PM EDT 12/27/2024 5:45 PM EDT Stewart Perez MD LAB BLOOD ORDERABLES Final Result Performing Organization Address City/State/[facility] Co de Phone Number [facility] [address] [place] [phone] * POCT Glucose (12/27/2024 4:21 PM EDT) Glucose Blood, POC 181 60 - 200 mg/dL [employer] Lot # [id number] Lot# Expiration Date 549,383 Comment:random Blood Capillary blood specimen / Unknown 12/27/2024 4:21 PM EDT Stewart Perez MD POINT OF CARE TEST ENTER/ED IT ORDERABLES Final Result * (ABNORMAL) POCT HGB A1C (12/27/2024 4:19 PM EDT) Hemoglobin A1C 6.0(A) 4.0 - 6.0 % [employer] Lot # [id number] Lot# Expiration Date [id number] Blood 12/27/2024 4:19 PM EDT Stewart Perez MD POINT OF CARE TEST ENTER/ED IT ORDERABLES Final Result * (ABNORMAL) Lipid Panel, Standard (08/11/2024 10:21 AM EST) Triglycerides 119 <150 mg/dL [facility] Comment:Desirable Triglyceri de: less than 150 mg/dLBorderline High Triglyceride 150-199 mg/dLHigh Triglyceride: 200-499 mg/dLVery High Triglyceride: greater than or equal to 5OO mg/dL Cholesterol 66 <200 mg/dL [facility] Comment:Desirable Cholestero l: less than 200 mg/dLBorderline High Cholesterol: 200-239 mg/dLHigh Cholesterol: greater than 239 mg/dL LDL Cholesterol Calculated 12 <100 mg/dL [facility] Comment:Desirable LDL: less than 100 mg/dLNear Optimal/Above Optimal LDL: 110- 129 mg/dLBorderline High LDL: 130-159 mg/dLHigh LDL: 160-189 mg/dLVery High LDL: greater than or equal to 190 mg/dL HDL Cholesterol 31(L) >40 mg/dL [facility] Comment:Desirable HDL: great er than 40 mg/dL Note: This HDL assay may give artificially low results in patients with liver disease. Blood Venous blood specimen / Unknown 08/11/2024 10:21 AM EST 08/11/2024 2:17 PM EST us Estrella Brunner MD LAB BLOOD ORDERABLES Final Resul t [facility] [address] [place] [phone] * BI Mammogram Screening Tomosynthesis Bilateral (06/30/2024 10:00 AM EDT) Anatomical Region Laterality Modality Breast Bilateral Mammography 06/30/2024 10:0 0 AM EDT Narrative 07/11/2024 8:50 AM EST ? [facility] ? [address] ?[place] [address] ? Mammography Report ? Signed ? Patient: Linares,Deedee F ?MR#: [id number] ? : 1950 ?Acct:[id number] ? Age/Sex: 74 / F ?ADM Date: 10/25/24 ? Loc: HO.MAMMO ? Attending Dr: Estrella Brunner MD ? Ordering Physician: Estrella Brunner MD ?Results: 1Negati ?? ve ? Date of Service: 06/30/24 ?Follow Up: 1 Year From Orig ?? inal Mammogram ? Procedure(s): MM tomosynthesis screening BI ?? Accession Number(s): [id number] ? cc: Estrella Brunner MD ? EXAMINATION: [...] ??Louise Coello DO ??07/11/2024 08:47 AM EST ?? RP ? Dictated By: ?Louise Coello DO ? Signed By: ?<Electronically signed by Louise Coello, DO in OV> ? 07/11/24 0847 ? DD/ 1000 ? TD/TT: 06/30/24 1030 ? Biomedical Equipment Support Specialist: ? Procedure Note Donannainterpreter, Image - 07/11/2024 [facility] [address] [place] [address] Mammography Report Signed Patient: Deedee Linares FMR#: [id number] : 1950cct:[id number] Age/Sex: 74 / FADM Date: 06/30/24 Loc: HO.MAMMO Attending Dr: Estrella Brunner MD Ordering Physician: Estrella Brunner MDResults: 1Negati ve Date of Service: 06/30/24Follow Up: 1 Year From Orig inal Mammogram Procedure(s): MM tomosynthesis screening BI Accession Number(s): [id number] cc: Estrella Brunner MD EXAMINATION: MM SCREENING [...] 07/11/24 0847 DD/ 1000 TD/TT: 06/30/24 1030 Biomedical Equipment Support Specialist: Estrella Brunner MD IMG BI PROCEDURES Final Result * Albumin, Random Urine W/Creatinine (05/13/2023 9:25 AM EDT) Creatinine, Urine 84.04 mg/dL [facility] Microalbumin Urine <5.0 mg/L [facility] Microalbum Creatinine Ratio Ur TNP <30 ug/mg cr [facility] Comment:Unable to calculate albumin/creatinine ratio due to lowmicroalbumin or creatinine result. 05/13/2023 9:25 AM EDT 05/13/2023 2:23 PM EDT Estrella Brunner MD LAB URINE ORDERABLES Final Resul t [facility] [address] [place] [phone] * Colonoscopy (08/19/2020) Colonoscopy Normal Normal Yolanda Nur MD HEALTH MAINTENANCE Final Result from Last 3 Months or Most Recently Relevant to Health Maintenance [place] [address] MEDICARE ADVANTAGE HMO DENTAL - HSN FULL ([place]) [place] [address] [place] [id number] Care Teams Motor Vehicle Representative Relationship Specialty Start Date End Date Estrella Brunner MD [address] [place] [phone] PCP - General Family Medicine 08/17/12 Mallory 06/05/24
== END 2025-01-11 15:13 | disposition home or self-care (01) ==
LOC: HO.HCS 14:48
PROVIDERS: PCP Student in an Organized Health Care Education/Training Program; Visit Provider Internal Medicine Cardiovascular Disease
DX: I25.10 Atherosclerotic heart disease of native coronary artery without angina pectoris (principal); I27.20 Pulmonary hypertension, unspecified
CPT/HCPCS: 99214; G2211

== ENCOUNTER → 2025-01-11 14:47 | Outpatient (BNVA) | payer MEDICARE, SELFPAY | PROVIDERS: PCP Student in an Organized Health Care Education/Training Program; Visit Provider Internal Medicine Cardiovascular Disease | DX: I25.10 Atherosclerotic heart disease of native coronary artery without angina pectoris (principal); I27.20 Pulmonary hypertension, unspecified | CPT/HCPCS: 99212 ==

== ENCOUNTER 2025-01-18 19:29 | Emergency (ER) | payer MEDICARE, SELFPAY ==
[2025-01-18 19:35] VITALS: BP 135/80; PULSE 94; O2SAT 96
[2025-01-18 19:42] VITALS: BP 129/53; PULSE 83; RESP 16; TEMP 36.4; O2SAT 98; BMI 34.6
[2025-01-18 19:47] LABS: Glucose, Whole Blood 142 mg/dL (60-115)
[2025-01-18 20:30] LABS: MANUAL DIFF FLAG NO
[2025-01-18 20:31] LABS: Basophils Percent Auto 0.5 % (0-2); Hematocrit 29.7 % (37.0-47.0); Hemoglobin 9.5 g/dl (12.0-16.0); Imm Gran Abs Auto 0.06 X10*3/uL (0.00-0.03); Imm Gran Pct Auto 0.7 % (0.0-0.4); Lymphocytes Absolute Auto 1.4 X10*3/uL (1.2-4.9); Mean Corpuscular Hemoglobin 26.7 pg (27.0-33.0); Mean Corpuscular Volume 83.4 fL (80.0-98.0); Mean Platelet Volume 9.4 fL (9.4-12.3); Monocytes Absolute Auto 0.6 X10*3/uL (0.1-1.2); Monocytes Percent Auto 7.3 % (2-11); Neutrophils Absolute Auto 6.7 x10*3/uL (2.0-8.3); Neutrophils Percent Auto 75.5 % (45-73); Platelet Count 223 X10*3/uL (160-400); Red Blood Count 3.56 X10*6/uL (4.20-5.50); Red Cell Distribution Width 14.2 % (11.0-16.0); White Blood Count 8.8 X10*3/uL (4.8-10.8)
[2025-01-18 20:35] LABS: VBG Base Excess 0.9 mmol/L; VBG HCO3 25 mmol/L (22-26); VBG pCO2 38 mmHg; VBG pH 7.42 (7.32-7.43); VBG pO2 72 mmHg
[2025-01-18 20:37] LABS: Venous Blood Gas Refer to POC result
[2025-01-18 20:53] LABS: Alanine Aminotransferase < 6 U/L (0-31); Albumin Level 3.4 g/dL (3.5-5.0); Alkaline Phosphatase 84 U/L (39-117); Anion Gap 16 (12-20); Aspartate Amino Transferase 18 U/L (5-31); Bilirubin Total 0.3 mg/dL (0.0-1.0); Blood Urea Nitrogen 14 mg/dL (9-16); Calcium 9.3 mg/dL (8.4-10.2); Carbon Dioxide 23 mmol/L (22-29); Chloride 107 mmol/L (96-108); Creatinine Clr Calc Pharmacy 61.1; Estimated Glomerular Filt Rate > 60; Glucose Random 131 mg/dL (60-115); Magnesium 1.2 mg/dL (1.6-2.6); Potassium 3.4 mmol/L (3.3-5.1); Sodium 143 mmol/L (135-145); Total Protein 5.7 g/dL (6.5-8.0)
[2025-01-18] MEDS: Magnesium Sulfate/H2O 2 GM/50 ML PIGGYBACK IV (21:12)
[2025-01-18 21:30] LABS: Appearance Urine Cloudy; Color Urine Yellow; Glucose Urine UA Negative (Negative); Leukocyte Esterase Urine Trace (Negative); Nitrite Urine Negative (Negative); PH 6.5 (5.0-9.0); UMIC TRIGGER UACC YES; Urine Blood Negative (Negative); Urine Ketones Trace mg/dL (Negative); Urine Protein Negative (Neg-Trace)
[2025-01-18 21:35] LABS: Bacteria Urine 4+ (None Seen); Hyaline Casts Urine 0-2 /LPF (0-2); RBC Urine 0-2 /HPF (0-2); WBC Urine 0-5 /HPF (0-5)
--- NOTE | 2025-01-18 22:22 | ED.GENADULT ---
HPI - General Adult General Chief complaint: Recheck/Abnormal Lab/Rx Stated complaint: hypoglycemia, bgl 46, currently 200 mg/dl Time Seen by Provider: 01/18/25 22:19 Source: patient Mode of arrival: EMS Limitations: no limitations History of Present Illness ED Provider: HPI narrative: Patient diabetic on glipizide and metformin took her medication but did not eat day today she did not feel hungry no nausea no vomiting no diarrhea no abdominal pain patient's blood sugar dropped to 43 at home patient has received D10 from EMS and blood sugar improved to 142 no fever no chills no abdominal pain patient denied any other symptoms Related Data Home Medications ?Medication ?Instructions ?Recorded ?Confirmed cyanocobalamin (vitamin B-12) 1 tab PO DAILY 08/12/20 01/11/25 1,000 mcg tablet ferrous sulfate 325 mg (65 mg 1 tab PO BID 08/12/20 01/11/25 iron) tablet oxybutynin chloride 10 mg 1 tab PO DAILY@1200 08/12/20 01/11/25 tablet,extended release 24 hr sertraline 50 mg tablet 1 tab PO BEDTIME 08/12/20 01/11/25 trazodone 50 mg tablet 1 tab PO BEDTIME 08/12/20 01/11/25 glipizide 5 mg tablet 5 mg PO DAILY 09/30/21 01/11/25 calcium carbonate 1 tab PO DAILY 10/31/21 01/11/25 tramadol 50 mg tablet 50 mg PO Q12H PRN severe pain 02/10/22 01/11/25 aspirin 81 mg tablet,delayed 81 mg PO DAILY 03/11/22 01/11/25 release atorvastatin 80 mg tablet 80 mg PO BEDTIME 04/06/24 01/11/25 pantoprazole 40 mg tablet,delayed 40 mg PO BID 04/06/24 01/11/25 release ergocalciferol (vitamin D2) 1,250 1,250 mcg PO [place] 05/29/24 01/11/25 mcg (50,000 unit) capsule magnesium oxide 400 mg (241.3 mg 400 mg PO BID 05/29/24 01/11/25 magnesium) tablet furosemide 20 mg tablet (Lasix) 20 mg PO .prn PRN Heart failure 01/11/25 01/11/25 symptoms metformin 1,000 mg tablet 850 mg PO BID 01/11/25 01/11/25 Previous Rx's ?Medication ?Instructions ?Recorded walker #1 ea 10/13/21 ibuprofen 600 mg tablet 600 mg PO Q8H PRN pain 10 days #20 10/25/22 tabs evolocumab 140 mg/mL subcutaneous 140 mg subcut Q2W 90 days #6 mL 05/02/24 pen injector (Repcarolinaa SureClick) ipratropium 0.5 mg-albuterol 3 mg 3 ml inhalation Q4-6H PRN wheezing 05/23/24 (2.5 mg base)/3 mL nebulization #180 mL soln theophylline 400 mg 400 mg PO DAILY #30 tabs 07/28/24 tablet,extended release 24 hr ipratropium 20 mcg-albuterol 100 1 puff PO Q4H #4 grams 08/21/24 mcg/actuation mist for inhalation (Combivent Respimat) ezetimibe 10 mg tablet 10 mg PO DAILY #30 tabs 08/31/24 fluticasone fur. 200 mcg-umeclid 1 ea PO DAILY #60 ea 08/31/24 62.5 mcg-vilant 25 mcg inhalat.powder (Trelegy Ellipta) isosorbide mononitrate 30 mg 30 mg PO DAILY #30 tabs 08/31/24 tablet,extended release 24 hr metoprolol succinate 25 mg 25 mg PO DAILY #30 tabs 08/31/24 tablet,extended release 24 hr (Toprol XL) ipratropium bromide 42 mcg (0.06 2 spray intranasal TID-QID PRN 09/27/24 %) nasal spray allergy symptoms #15 mL doxycycline monohydrate 100 mg 100 mg PO BID #14 tabs 01/05/25 tablet nitroglycerin 0.4 mg sublingual 0.4 mg sublingual NEEDED PRN 01/12/25 tablet Chest Pain #20 tabs Allergies Allergy/AdvReac Type Severity Reaction Status Date / Time amoxicillin Allergy Difficulty Verified 01/18/25 19:44 Breathing levofloxacin [From Levaquin] AdvReac Intermediate Muscle Pain Verified 01/18/25 19:44 Pain Med Sensitivity Allergy Unknown none Uncoded 07/28/24 10:46 Review of Systems Review of Systems: Yes all other systems are reviewed and are negative PMFSH Past Medical History Medical History Supplemental oxygen dependent Personal history of nicotine dependence Asthma-COPD overlap syndrome Pulmonary hypertension Acute exacerbation of congestive heart failure Acute respiratory failure with hypoxia Pneumonia Hyperlipidemia MRSA (methicillin resistant Staphylococcus aureus) Anxiety and depression History of blood transfusion Myocardial infarct Diarrhea Arthritis Diabetes GERD (gastroesophageal reflux disease) Coronary artery disease Surgical History Hx of colonoscopy Hx of tonsillectomy Hx of cholecystectomy H/O: hysterectomy History of total right knee replacement (TKR) History of cardiac catheterization Family History Family History Father Colon cancer Social History Social History Household Members: None Housing: Apartment Are you a primary hospice spiritual care coordinator to a significant other at home: No Do you presently have visiting nurse or other home services: Yes Unable to assess alcohol history related to: Unable to respond Alcohol intake: unknown Patient Tobacco Use Status: Former Tobacco user Tobacco use type: Cigarette Years Smoked: 40 Smoked in Last 30 Days: No Second Hand Smoke Exposure: No Use of substances other than those prescribed or required for medical reasons: No Advance Directives: Yes Advance Directives on File: Yes Advance Directives Date on File: 12/25/21 Do you have a plan to hurt others: No Plan service: No Current occupational status: retired Physical Exam ED Vital Signs: Vital Signs - 24 hr 01/18/25 19:42 01/18/25 22:37 01/19/25 00:12 Temperature 97.5 F 97.2 F 97.7 F Pulse Rate 83 73 74 Respiratory Rate 16 20 20 Blood Pressure 129/53 L 115/62 129/56 L Pulse Oximetry 98 98 98 Oxygen Delivery Method Nasal Cannula Nasal Cannula Nasal Cannula Oxygen Flow Rate 4 4 01/19/25 00:36 Temperature 97.7 F Pulse Rate 74 Respiratory Rate 20 Blood Pressure 129/56 L Pulse Oximetry 98 Oxygen Delivery Method Nasal Cannula Oxygen Flow Rate 4 BMI result Body Mass Index 34.6 Appearance: Alert. Oriented X3. No acute distress. Eyes: PERRLA, No Nystagmus ENT: Pharynx normal. Oral Mucosa moist Neck: Normal inspection. Neck supple. CVS: Normal heart rate and rhythm. Pulses normal. Respiratory: No respiratory distress. Equal air entry bilateral, no wheezing/rales/rhonchi Abdomen: Soft and nontender. Bowel sounds are present, no mass palpable, no CVA tenderness Skin: Skin warm and dry. Normal skin color. Normal skin turgor. Extremities: No lower extremity edema. No calf tenderness Neuro: Oriented X 3. No motor deficit. No sensory deficit.No cerebellar signs , cranial nerves II-XII intact Medications Administered Discontinued Medications Generic Name Dose Route Start Last Admin Trade Name Freq PRN Reason Stop Dose Admin Magnesium Sulfate 2 gm in 50 mls @ 25 mls/hr 01/18/25 20:54 01/18/25 22:58 Magnesium Sulfate/H2o IV 01/18/25 22:53 Infused ONCE ONE Infusion Medical Decision Making Medical Decision Making [facility] Narrative: Patient with hyperglycemia secondary to decreased oral intake and on glipizide which was taken about 12 hours ago patient has had food in the ER blood sugar persistently elevated more than 100 at the time of discharge patient's blood sugar was 168 magnesium level was low 1.2 on arrival improved after IV magnesium to 2.1 patient advised not to take the glipizide if she is not eating and follow with PCP Differential Diagnosis Differential Diagnoses: The differential diagnosis associated with the presentation includes Lab Data [facility] Lab Attestation statement: I reviewed the patient's lab results. 01/18/25 20:26 01/18/25 20:26 Labs: Lab Results 01/18/25 01/18/25 01/18/25 Range/Units 19:40 20:26 20:30 WBC 8.8 (4.8-10.8) X10*3/uL RBC 3.56 L (4.20-5.50) X10*6/uL Hgb 9.5 L (12.0-16.0) g/dl Hct 29.7 L (37.0-47.0) % MCV 83.4 (80.0-98.0) fL MCH 26.7 L (27.0-33.0) pg MCHC 32.0 (31.0-35.0) g/dl RDW 14.2 (11.0-16.0) % Plt Count 223 (160-400) X10*3/uL MPV 9.4 (9.4-12.3) fL Immature Gran % (Auto) 0.7 H (0.0-0.4) % Neut % (Auto) 75.5 H (45-73) % Lymph % (Auto) 16.0 L (20-40) % [place] % (Auto) 7.3 (2-11) % Eos % (Auto) 0.0 (0-4) % Baso % (Auto) 0.5 (0-2) % Lymph # (Auto) 1.4 (1.2-4.9) X10*3/uL [place] # (Auto) 0.6 (0.1-1.2) X10*3/uL Eos # (Auto) 0.0 (0.0-0.4) X10*3/uL Baso # (Auto) 0.0 (0.0-0.2) X10*3/uL Abs Immat Gran (auto) 0.06 H (0.00-0.03) X10*3/uL Absolute Neuts (auto) 6.7 (2.0-8.3) x10*3/uL Absolute Nucleated RBC 0.000 (0.0-0.012) X10*3/uL Nucleated RBC % (auto) 0.0 (0.0-0.2) /100WBC VBG pH 7.42 (7.32-7.43) VBG pCO2 38 mmHg VBG pO2 72 mmHg VBG HCO3 25 (22-26) mmol/L VBG O2 Saturation 93.0 % VBG Base Excess 0.9 mmol/L Sodium 143 (135-145) mmol/L Potassium 3.4 (3.3-5.1) mmol/L Chloride 107 (96-108) mmol/L Carbon Dioxide 23 (22-29) mmol/L Anion Gap 16 (12-20) BUN 14 (9-16) mg/dL Creatinine 0.80 (0.5-1.4) mg/dL Estim Creat Clear Calc 61.1 Estimated GFR > 60 POC Glucose 142 H (60-115) mg/dL Random Glucose 131 H (60-115) mg/dL Calcium 9.3 (8.4-10.2) mg/dL Magnesium 1.2 L* (1.6-2.6) mg/dL Total Bilirubin 0.3 (0.0-1.0) mg/dL AST 18 (5-31) U/L ALT < 6 (0-31) U/L Alkaline Phosphatase 84 (39-117) U/L Total Protein 5.7 L (6.5-8.0) g/dL Albumin 3.4 L (3.5-5.0) g/dL Urine Color Urine Appearance Urine pH (5.0-9.0) Ur Specific [place] (1.005-1.025) Urine Protein (Neg-Trace) mg/dL Urine Glucose (UA) (Negative) mg/dL Urine Ketones (Negative) mg/dL Urine Blood (Negative) Urine Nitrite (Negative) Ur Leukocyte Esterase (Negative) Urine RBC (0-2) /HPF Urine WBC (0-5) /HPF Ur Squamous Epith Cells (0-2) /HPF Urine Bacteria (None Seen) Hyaline Casts (0-2) /LPF 01/18/25 01/18/25 01/19/25 Range/Units 20:54 21:20 00:12 WBC (4.8-10.8) X10*3/uL RBC (4.20-5.50) X10*6/uL Hgb (12.0-16.0) g/dl Hct (37.0-47.0) % MCV (80.0-98.0) fL MCH (27.0-33.0) pg MCHC (31.0-35.0) g/dl RDW (11.0-16.0) % Plt Count (160-400) X10*3/uL MPV (9.4-12.3) fL Immature Gran % (Auto) (0.0-0.4) % Neut % (Auto) (45-73) % Lymph % (Auto) (20-40) % [place] % (Auto) (2-11) % Eos % (Auto) (0-4) % Baso % (Auto) (0-2) % Lymph # (Auto) (1.2-4.9) X10*3/uL [place] # (Auto) (0.1-1.2) X10*3/uL Eos # (Auto) (0.0-0.4) X10*3/uL Baso # (Auto) (0.0-0.2) X10*3/uL Abs Immat Gran (auto) (0.00-0.03) X10*3/uL Absolute Neuts (auto) (2.0-8.3) x10*3/uL Absolute Nucleated RBC (0.0-0.012) X10*3/uL Nucleated RBC % (auto) (0.0-0.2) /100WBC VBG pH (7.32-7.43) VBG pCO2 mmHg VBG pO2 mmHg VBG HCO3 (22-26) mmol/L VBG O2 Saturation % VBG Base Excess mmol/L Sodium (135-145) mmol/L Potassium (3.3-5.1) mmol/L Chloride (96-108) mmol/L Carbon Dioxide (22-29) mmol/L Anion Gap (12-20) BUN (9-16) mg/dL Creatinine (0.5-1.4) mg/dL Estim Creat Clear Calc Estimated GFR POC Glucose 168 H (60-115) mg/dL Random Glucose (60-115) mg/dL Calcium (8.4-10.2) mg/dL Magnesium 2.1 (1.6-2.6) mg/dL Total Bilirubin (0.0-1.0) mg/dL AST (5-31) U/L ALT (0-31) U/L Alkaline Phosphatase (39-117) U/L Total Protein (6.5-8.0) g/dL Albumin (3.5-5.0) g/dL Urine Color Yellow Urine Appearance Cloudy Urine pH 6.5 (5.0-9.0) Ur Specific [place] 1.020 (1.005-1.025) Urine Protein Negative (Neg-Trace) mg/dL Urine Glucose (UA) Negative (Negative) mg/dL Urine Ketones Trace (Negative) mg/dL Urine Blood Negative (Negative) Urine Nitrite Negative (Negative) Ur Leukocyte Esterase Trace H (Negative) Urine RBC 0-2 (0-2) /HPF Urine WBC 0-5 (0-5) /HPF Ur Squamous Epith Cells 3-5 (0-2) /HPF Urine Bacteria 4+ (None Seen) Hyaline Casts 0-2 (0-2) /LPF Discharge Plan Discharge Clinical Impression: Diabetic hypoglycemia Patient Disposition: Home, Self-Care Instructions: Hypoglycemia in a Person with Diabetes (ED) Additional Instructions: Do not miss your meals while taking your medication If your are not eating well do not take glipizide Follow up with your PCP Prescriptions: No Action [facility]DME[facility] See Rx Instructions .MEDSUPPLY Qty: 1 0RF Rx Instructions: Folding Front wheeled walker ibuprofen 600 mg tablet 600 mg PO Q8H PRN (Reason: pain) 10 Days Qty: 20 0RF ipratropium-albuterol 0.5 mg-3 mg(2.5 mg base)/3 mL solution for nebulization 3 ml inhalation Q4-6H PRN (Reason: wheezing) Qty: 180 6RF Combivent Respimat 20-100 mcg/actuation mist 1 puff PO Q4H Qty: 4 6RF Trelegy Ellipta 200-62.5-25 mcg blister with device 1 ea PO DAILY Qty: 60 6RF ezetimibe 10 mg tablet 10 mg PO DAILY Qty: 30 5RF isosorbide mononitrate 30 mg tablet extended release 24 hr 30 mg PO DAILY Qty: 30 5RF metoprolol succinate [Toprol XL] 25 mg tablet extended release 24 hr 25 mg PO DAILY Qty: 30 5RF ipratropium bromide 42 mcg (0.06 %) spray,non-aerosol 2 spray intranasal TID-QID PRN (Reason: allergy symptoms) Qty: 15 6RF Rx Instructions: administer into each nostril nitroglycerin 0.4 mg tablet, sublingual 0.4 mg sublingual NEEDED PRN (Reason: Chest Pain) Qty: 20 2RF trazodone 50 mg tablet 1 tab PO BEDTIME oxybutynin chloride 10 mg tablet extended release 24hr 1 tab PO DAILY@1200 cyanocobalamin (vitamin B-12) 1,000 mcg tablet 1 tab PO DAILY ferrous sulfate 325 mg (65 mg iron) tablet 1 tab PO BID sertraline 50 mg tablet 1 tab PO BEDTIME atorvastatin 80 mg tablet 80 mg PO BEDTIME pantoprazole 40 mg tablet,delayed release (DR/EC) 40 mg PO BID metformin 1,000 mg tablet 850 mg PO BID calcium carbonate 500 mg calcium (1,250 mg) tablet 1 tab PO DAILY magnesium oxide 400 mg (241.3 mg magnesium) tablet 400 mg PO BID ergocalciferol (vitamin D2) 1,250 mcg (50,000 unit) capsule 1,250 mcg PO [place] aspirin 81 mg tablet,delayed release (DR/EC) 81 mg PO DAILY glipizide 5 mg tablet 5 mg PO DAILY tramadol 50 mg tablet 50 mg PO Q12H PRN (Reason: severe pain) Repatha SureClick 140 mg/mL pen injector 140 mg subcut Q2W 90 Days Qty: 6 3RF doxycycline monohydrate 100 mg tablet 100 mg PO BID Qty: 14 0RF furosemide [Lasix] 20 mg tablet 20 mg PO .prn PRN (Reason: Heart failure symptoms) theophylline 400 mg tablet extended release 24 hr 400 mg PO DAILY Qty: 30 6RF Interventions: ED Discharge Assessment Last Done: 01/19/25 00:36 Discharge Date/Time: 01/19/25 00:52 Print Language: [place]
[2025-01-18 22:37] VITALS: BP 115/62; PULSE 73; RESP 20; TEMP 36.2; O2SAT 98
[2025-01-18 23:29] LABS: Magnesium 2.1 mg/dL (1.6-2.6)
[2025-01-19 00:12] VITALS: BP 129/56; PULSE 74; RESP 20; TEMP 36.5; O2SAT 98
[2025-01-19 00:17] LABS: Glucose, Whole Blood 168 mg/dL (60-115)
[2025-01-19 00:36] VITALS: BP 129/56; PULSE 74; RESP 20; TEMP 36.5; O2SAT 98
== END 2025-01-19 00:52 | disposition home or self-care (01) ==
PROVIDERS: Emergency Medicine Emergency Medical Services; Emergency Provider Internal Medicine
DX: E11.649 Type 2 diabetes mellitus with hypoglycemia without coma (principal); I25.10 Atherosclerotic heart disease of native coronary artery without angina pectoris; J44.9 Chronic obstructive pulmonary disease, unspecified; Z79.899 Other long term (current) drug therapy
CPT/HCPCS: 36415; 80053; 81001; 82803; 82947; 83735; 85025; 96365; 96366; 99284; J3475

== ENCOUNTER 2025-02-23 14:49 | Inpatient (IN) | payer MEDICARE, SELFPAY ==
[2025-02-23] VITALS (9 sets, daily range): BP systolic 136–162; BP diastolic 48–88; PULSE 84–106; RESP 16–26; TEMP 36.6–36.9; O2SAT 84–94; BMI 37.8; BMI 35.5
--- NOTE | ~2025-02-23 | XR_ITS ---
EXAMINATION: XR CHEST CLINICAL INFORMATION: sob, hypoxia COMPARISON: May 29, 2024. TECHNIQUE: Frontal view of the chest was obtained. FINDINGS: Mild prominence interstitial lung markings with indistinct margins in the perihilar regions. No gross consolidation pleural fissure pneumothorax. Cardiomediastinal silhouette size is normal. Calcified plaque aortic arch. Multilevel thoracic and upper lumbar stenosis. Patient's large body habitus. XR/XR chest 1V IMPRESSION: Mild interstitial edema in the correct clinical settings. Electronically signed by: Juan Antonio Medina MD 02/23/2025 03:30 PM EDT
--- NOTE | 2025-02-23 15:37 | ECG_ITS ---
Test Reason : sob Blood Pressure : */* mmHG Vent. Rate : 92 BPM Atrial Rate : 92 BPM P-R Int : 150 ms QRS Dur : 84 ms QT Int : 398 ms P-R-T Axes : 50 -39 6 degrees QTcB Int : 492 ms Normal sinus rhythm Left axis deviation Low voltage QRS Cannot rule out Anterior infarct , age undetermined Nonspecific T wave changes Abnormal ECG When compared with ECG of 29-May-2024 13:18, nonspecific T wave changes noted Referred By: Irina Velásquez Electronically Signed By: Fabian Larry
--- NOTE | 2025-02-23 15:38 | ED.GENADULT ---
HPI - General Adult General Chief complaint: Upper Respiratory Symptoms Stated complaint: SOB Time Seen by Provider: 02/23/25 15:36 Source: patient and EMS Mode of arrival: EMS Limitations: no limitations History of Present Illness ED Provider: MICHAEL YODER PA-C HPI narrative: 74-year-old female with pmhx significant for CAD, ME, HLD, asthma/COPD on 2L O2, and CHF presents to the ED today via EMS for evaluation of increasing shortness of breath x4 days. She has been using her inhaler at home without relief. She reports ambulating to the bathroom today while on 2 L O2 and saw her oxygen dropping to 69%. She was very short of breath at that time as well. She called her primary care provider who advised her to call an ambulance for ED transport. Denies any increased orthopnea. Typically sleeps with 2-3 pillows propped under her head. She also endorses associated left-sided chest discomfort and congested cough however has not been able to expel any sputum. She states that her equipment monitor phototypesetting has prescribed her 20 mg of Lasix to take as needed for lower extremity swelling however she display specialist not taken this in a while. Denies any LE swelling. Denies known sick contacts. Denies known fever or chills, nausea or vomiting. Related Data Home Medications ?Medication ?Instructions ?Recorded ?Confirmed cyanocobalamin (vitamin B-12) 1 tab PO DAILY 08/12/20 01/11/25 1,000 mcg tablet ferrous sulfate 325 mg (65 mg 1 tab PO BID 08/12/20 01/11/25 iron) tablet oxybutynin chloride 10 mg 1 tab PO DAILY@1200 08/12/20 01/11/25 tablet,extended release 24 hr sertraline 50 mg tablet 1 tab PO BEDTIME 08/12/20 01/11/25 trazodone 50 mg tablet 1 tab PO BEDTIME 08/12/20 01/11/25 glipizide 5 mg tablet 5 mg PO DAILY 09/30/21 01/11/25 calcium carbonate 1 tab PO DAILY 10/31/21 01/11/25 tramadol 50 mg tablet 50 mg PO Q12H PRN severe pain 02/10/22 01/11/25 aspirin 81 mg tablet,delayed 81 mg PO DAILY 03/11/22 01/11/25 release atorvastatin 80 mg tablet 80 mg PO BEDTIME 04/06/24 01/11/25 pantoprazole 40 mg tablet,delayed 40 mg PO BID 04/06/24 01/11/25 release ergocalciferol (vitamin D2) 1,250 1,250 mcg PO [place] 05/29/24 01/11/25 mcg (50,000 unit) capsule magnesium oxide 400 mg (241.3 mg 400 mg PO BID 05/29/24 01/11/25 magnesium) tablet furosemide 20 mg tablet (Lasix) 20 mg PO .prn PRN Heart failure 01/11/25 01/11/25 symptoms metformin 1,000 mg tablet 850 mg PO BID 01/11/25 01/11/25 Previous Rx's ?Medication ?Instructions ?Recorded walker #1 ea 10/13/21 ibuprofen 600 mg tablet 600 mg PO Q8H PRN pain 10 days #20 10/25/22 tabs evolocumab 140 mg/mL subcutaneous 140 mg subcut Q2W 90 days #6 mL 05/02/24 pen injector (Daniella Mendosa) ipratropium 0.5 mg-albuterol 3 mg 3 ml inhalation Q4-6H PRN wheezing 05/23/24 (2.5 mg base)/3 mL nebulization #180 mL soln ipratropium 20 mcg-albuterol 100 1 puff PO Q4H #4 grams 08/21/24 mcg/actuation mist for inhalation (Combivent Respimat) fluticasone fur. 200 mcg-umeclid 1 ea PO DAILY #60 ea 08/31/24 62.5 mcg-vilant 25 mcg inhalat.powder (Trelegy Ellipta) ipratropium bromide 42 mcg (0.06 2 spray intranasal TID-QID PRN 09/27/24 %) nasal spray allergy symptoms #15 mL doxycycline monohydrate 100 mg 100 mg PO BID #14 tabs 01/05/25 tablet nitroglycerin 0.4 mg sublingual 0.4 mg sublingual NEEDED PRN 01/12/25 tablet Chest Pain #20 tabs ezetimibe 10 mg tablet 10 mg PO QAM #90 tabs 02/14/25 isosorbide mononitrate 30 mg 30 mg PO QAM #90 tabs 02/14/25 tablet,extended release 24 hr metoprolol succinate 25 mg 25 mg PO QAM #90 tabs 02/14/25 tablet,extended release 24 hr theophylline 400 mg 400 mg PO QAM #30 tabs 02/14/25 tablet,extended release 24 hr Allergies Allergy/AdvReac Type Severity Reaction Status Date / Time amoxicillin Allergy Difficulty Verified 02/23/25 15:08 Breathing levofloxacin (From Levaquin) AdvReac Intermediate Muscle Pain Verified 02/23/25 15:08 Pain Med Sensitivity Allergy Unknown none Uncoded 02/23/25 15:08 Review of Systems Review of Systems: Constitutional: No fever, chills, fatigue, night sweats, weight changes ENT/Mouth: No ear pain, hearing loss, nasal congestion, sinus pain, rhinorrhea, sore throat Eyes: No eye pain, swelling, redness, vision changes, discharge Cardio: No chest pain, palpitations, [place], orthopnea, peripheral edema, +chest discomfort Pulm: No SOB, cough, sputum, wheezing, dyspnea, hemoptysis, +SOB +cough GI: No nausea, vomiting, hematemesis, abdominal pain, diarrhea, constipation, hematochezia, melena : No irregular bleeding, dysuria, frequency, urgency, hesitancy, hematuria, flank pain, urinary flow changes, urinary incontinence or retention MSK: No back pain, neck pain, joint pain, myalgias Skin: No lesions, rashes Neuro: No weakness, numbness, paresthesias, LOC, dizziness, headache Psych: No anxiety/panic, depression, SI/HI, AH/VH All other systems reviewed and are negative. [facility] Past Medical History Attestation statement: The following information was validated with the patient. Source: old records reviewed, obtained from family and nursing notes reviewed Medical History Supplemental oxygen dependent Personal history of nicotine dependence Asthma-COPD overlap syndrome Pulmonary hypertension Acute exacerbation of congestive heart failure Acute respiratory failure with hypoxia Pneumonia Hyperlipidemia MRSA (methicillin resistant Staphylococcus aureus) Anxiety and depression History of blood transfusion Myocardial infarct Diarrhea Arthritis Diabetes GERD (gastroesophageal reflux disease) Coronary artery disease Surgical History Hx of colonoscopy Hx of tonsillectomy Hx of cholecystectomy H/O: hysterectomy History of total right knee replacement (TKR) History of cardiac catheterization Family History Family History Father Colon cancer Social History Social History Household Members: None Housing: Apartment Are you a primary youth care specialist to a significant other at home: No Do you presently have visiting nurse or other home services: Yes Unable to assess alcohol history related to: Unable to respond Alcohol intake: unknown Patient Tobacco Use Status: Former Tobacco user Tobacco use type: Cigarette Years Smoked: 40 Second Hand Smoke Exposure: No Advance Directives: Yes Advance Directives on File: Yes Advance Directives Date on File: 12/25/21 service: No Current occupational status: retired Physical Exam ED Vital Signs: Vital Signs - 24 hr 02/23/25 14:59 02/23/25 17:27 Temperature 97.9 F Pulse Rate 98 Respiratory Rate 26 H Blood Pressure 151/59 H 137/58 L Pulse Oximetry 91 L Oxygen Delivery Method Nasal Cannula BMI result Body Mass Index 37.8 Hypertensive, tachypneic, satting 91% on 2 L nasal cannula General: pale appearing Skin: Warm, dry, intact. No rashes or lesions. Head: Normocephalic, atraumatic. EENT: Hearing is intact b/l. Conjunctiva clear. Sclera is anicteric. PERRLA. EOM intact. Moist mucous membranes.? Neck: Supple without LAD Cardiac: Chest wall symmetric. RRR Lungs: Increased effort of breathing, speaking in 3-4 word sentences, crackles to bilateral bases Abdomen: Soft, non-tender, non-distended. No rebound tenderness or guarding. Positive BS x4. Back: No midline spinous or paraspinal tenderness. No step off deformity. Ext: No pitting edema to bilateral lower extremities, no calf tenderness bilaterally Neuro: AOx3. Normal speech. Strength 5/5 intact throughout. No saddle anesthesia. Sensation intact to light touch. NV intact distally. Ambulating with steady gait Course Course Course Narrative: 1746 -- CBC without leukocytosis. Normocytic anemia, H&H stable when compared to priors. Chemistry showing hypomagnesemia at 1.5, repletion ordered. No other acute electrolyte abnormality requiring intervention. No AMOS. Random glucose 310, no anion gap. BNP 366 - concern for CHF. Initial troponin mildly elevated to 20, likely related to demand. EKG showing normal sinus rhythm, rate of 92 beats per minute, no acute ischemic changes or ST elevations. Chest x-ray showing findings concerning for pulmonary edema. her lactic is elevated to 2.5 - appears chronic, likely secondary to albuterol tx + metformin. I do not have concern for sepsis. negative covid, flu, and rsv. > clinically, patient is in CHF exacerbation. IV Lasix ordered > IV Mag ordered for repletion > spoke with hospitalist dr. navas. patient to be admitted to medicine for further management. patient agreeable. Medications Administered Discontinued Medications Generic Name Dose Route Start Last Admin Trade Name Freq PRN Reason Stop Dose Admin Furosemide 20 mg 02/23/25 17:08 02/23/25 17:27 Furosemide 20 Mg/2 Ml Vial IVPUSH 02/23/25 17:09 20 mg ONCE ONE Administration Protocol Magnesium Sulfate 2 gm in 50 mls @ 150 mls/hr 02/23/25 17:08 02/23/25 17:27 Magnesium Sulfate/H2o IV 02/23/25 17:27 150 mls/hr ONCE ONE Administration Medical Decision Making Medical Decision Making [facility] Narrative: 74-year-old female with pmhx significant for CAD, ME, HLD, asthma/COPD on 2L O2, and CHF presents to the ED today via EMS for evaluation of increasing shortness of breath x4 days. On arrival patient is hypertensive, tachypenic, 91% on 2L. On exam, mild respiratory distress with increased effort of breathing, speaking in 3-4 word sentences, crackles to bilateral lung bases. While speaking with me, patient desats to 87-88% on 2 L nasal cannula, increased to 4L with improvement to 92%. there is no pitting edema to lower extremities. Differential diagnosis includes anemia, electrolyte abnormality, viral syndrome, CHF, COPD/asthma exacerbation, pneumonia, bronchitis Lower suspicion for PE, ACS, arrhythmia Plan for labs, ekg, CXR, vbg, re-evaluation. Differential Diagnosis Differential Diagnoses: The differential diagnosis associated with the presentation includes as above. Admission/Observation Consideration of admission/observation: Escalation of care including admission/observation considered Patient admitted to medicine for further treatment of CHF Consult Healthcare Provider Management of the patient was discussed with: Hospitalist (dr. navas) Lab Data [facility] Lab Attestation statement: I reviewed the patient's lab results. as above 02/23/25 16:25 02/23/25 16:25 Labs: Lab Results 02/23/25 02/23/25 02/23/25 Range/Units 16:25 16:26 16:40 WBC 7.5 (4.8-10.8) X10*3/uL RBC 3.49 L (4.20-5.50) X10*6/uL Hgb 9.6 L (12.0-16.0) g/dl Hct 29.7 L (37.0-47.0) % MCV 85.1 (80.0-98.0) fL MCH 27.5 (27.0-33.0) pg MCHC 32.3 (31.0-35.0) g/dl RDW 15.8 (11.0-16.0) % Plt Count 186 (160-400) X10*3/uL MPV 9.6 (9.4-12.3) fL Immature Gran % (Auto) 0.8 H (0.0-0.4) % Neut % (Auto) 79.7 H (45-73) % Lymph % (Auto) 13.8 L (20-40) % [place] % (Auto) 5.3 (2-11) % Eos % (Auto) 0.0 (0-4) % Baso % (Auto) 0.4 (0-2) % Lymph # (Auto) 1.0 L (1.2-4.9) X10*3/uL [place] # (Auto) 0.4 (0.1-1.2) X10*3/uL Eos # (Auto) 0.0 (0.0-0.4) X10*3/uL Baso # (Auto) 0.0 (0.0-0.2) X10*3/uL Abs Immat Gran (auto) 0.06 H (0.00-0.03) X10*3/uL Absolute Neuts (auto) 6.0 (2.0-8.3) x10*3/uL Absolute Nucleated RBC 0.000 (0.0-0.012) X10*3/uL Nucleated RBC % (auto) 0.0 (0.0-0.2) /100WBC VBG pH 7.35 (7.32-7.43) VBG pCO2 54 mmHg VBG pO2 73 mmHg VBG HCO3 30 H (22-26) mmol/L VBG O2 Saturation 91.0 % VBG Base Excess 3.6 mmol/L Sodium 139 (135-145) mmol/L Potassium 3.6 (3.3-5.1) mmol/L Chloride 105 (96-108) mmol/L Carbon Dioxide 28 (22-29) mmol/L Anion Gap 10 L (12-20) BUN 18 H (9-16) mg/dL Creatinine 0.71 (0.5-1.4) mg/dL Estim Creat Clear Calc 72.3 Estimated GFR > 60 Random Glucose 310 H (60-115) mg/dL Lactic Acid 2.5 H* (0.5-2.0) mmol/L Calcium 9.0 (8.4-10.2) mg/dL Magnesium 1.5 L (1.6-2.6) mg/dL Total Bilirubin 0.3 (0.0-1.0) mg/dL AST 21 (5-31) U/L ALT 16 (0-31) U/L Alkaline Phosphatase 102 (39-117) U/L Troponin I High Sens 20.0 H D (<3.5-17.0) ng/L B-Natriuretic Peptide 366 H (<100) pg/mL Total Protein 5.6 L (6.5-8.0) g/dL Albumin 3.4 L (3.5-5.0) g/dL Influenza Type A (PCR) NEGATIVE (Negative) Influenza Type B (PCR) NEGATIVE (Negative) RSV RNA Qual (PCR) NEGATIVE (Negative) SARS-CoV-2 RNA (RT-PCR) NEGATIVE (Negative) Independent Interpretation I performed an independent interpretation of an: EKG and Plain X-Ray Interpretation: Chest x-ray showing pulmonary edema ekg showing NSR rate of 92 bpm, no acute ischemic changes or ST elevations Radiology Impression Discussion of test interpretation with radiology: I have reviewed the radiologist's reading. Radiologist Impression: Date of Service: 02/23/25 Procedure(s): XR chest 1V Accession Number(s): [id number] cc: Estrella Brunner MD; Chastity Farias~ EXAMINATION: XR CHEST CLINICAL INFORMATION: sob, hypoxia COMPARISON: May 29, 2024. TECHNIQUE: Frontal view of the chest was obtained. FINDINGS: Mild prominence interstitial lung markings with indistinct margins in the perihilar regions. No gross consolidation pleural fissure pneumothorax. Cardiomediastinal silhouette size is normal. Calcified plaque aortic arch. Multilevel thoracic and upper lumbar stenosis. Patient's large body habitus. XR/XR chest 1V IMPRESSION: Mild interstitial edema in the correct clinical settings. Electronically signed by: Juan Antonio Medina MD 02/23/2025 03:30 PM EDT Independent Historian Clinical information obtained from an independent historian. History obtained from or confirmed by: EMS External Record Review External record reviewed: Inpatient record, Office record, Outpatient record, Prior outpatient labs and Prior outpatient radiology Chronic Conditions Patient?s care impacted by: Other (CHF CAD) Social Determinants Patient?s care significantly limited by Social Determinants of Health including: Other Social Determinant of Health Critical Care Time Critical Care Time Critical Care Time: Yes Total Critical Care Time: 32 Attestation: Critical care time in the amount of 32 minutes has been provided to the patient in terms of direct patient care, frequent reevaluation, consultation with hospitalist, review and interpretation of medical data and results, and management of potentially life-threatening conditions. This is all outside of any medical procedures. Discharge Plan Discharge Clinical Impression: CHF (congestive heart failure), Hypomagnesemia Patient Disposition: Admitted As Inpatient Print Language: British
[2025-02-23 16:35] LABS: MANUAL DIFF FLAG NO
[2025-02-23 16:49] LABS: Basophils Percent Auto 0.4 % (0-2); Hematocrit 29.7 % (37.0-47.0); Hemoglobin 9.6 g/dl (12.0-16.0); Imm Gran Abs Auto 0.06 X10*3/uL (0.00-0.03); Imm Gran Pct Auto 0.8 % (0.0-0.4); Lymphocytes Percent Auto 13.8 % (20-40); Mean Corpuscular HGB Conc 32.3 g/dl (31.0-35.0); Mean Corpuscular Hemoglobin 27.5 pg (27.0-33.0); Mean Corpuscular Volume 85.1 fL (80.0-98.0); Mean Platelet Volume 9.6 fL (9.4-12.3); Monocytes Absolute Auto 0.4 X10*3/uL (0.1-1.2); Monocytes Percent Auto 5.3 % (2-11); Neutrophils Percent Auto 79.7 % (45-73); Platelet Count 186 X10*3/uL (160-400); Red Blood Count 3.49 X10*6/uL (4.20-5.50); Red Cell Distribution Width 15.8 % (11.0-16.0); White Blood Count 7.5 X10*3/uL (4.8-10.8)
[2025-02-23 16:58] LABS: Alanine Aminotransferase 16 U/L (0-31); Albumin Level 3.4 g/dL (3.5-5.0); Alkaline Phosphatase 102 U/L (39-117); Anion Gap 10 (12-20); Aspartate Amino Transferase 21 U/L (5-31); Bilirubin Total 0.3 mg/dL (0.0-1.0); Blood Urea Nitrogen 18 mg/dL (9-16); Carbon Dioxide 28 mmol/L (22-29); Chloride 105 mmol/L (96-108); Creatinine Clr Calc Pharmacy 72.3; Estimated Glomerular Filt Rate > 60; Glucose Random 310 mg/dL (60-115); Magnesium 1.5 mg/dL (1.6-2.6); Potassium 3.6 mmol/L (3.3-5.1); Sodium 139 mmol/L (135-145); Total Protein 5.6 g/dL (6.5-8.0)
[2025-02-23 17:00] LABS: VBG Base Excess 3.6 mmol/L; VBG HCO3 30 mmol/L (22-26); VBG pCO2 54 mmHg; VBG pH 7.35 (7.32-7.43); VBG pO2 73 mmHg
[2025-02-23 17:04] LABS: B Type Natriuretic Peptide 366 pg/mL (<100)
[2025-02-23 17:12] LABS: Venous Blood Gas Refer to POC result
[2025-02-23 17:18] LABS: Influenza A PCR NEGATIVE (Negative); Influenza B PCR NEGATIVE (Negative); Resp Syncy Virus RNA Qual PCR NEGATIVE (Negative); SARS COV2 PCR INHOUSE NEGATIVE (Negative)
[2025-02-23 17:22] LABS: Lactic Acid 2.5 mmol/L (0.5-2.0)
[2025-02-23] MEDS: Magnesium Sulfate/H2O 2 GM/50 ML PIGGYBACK IV (17:27)
[2025-02-23] MEDS: Furosemide 20 MG/2 ML VIAL IVPUSH (17:27)
--- NOTE | 2025-02-23 18:10 | PM.IMHP ---
History of Present Illness Date of Service: 02/23/25 Chief Complaint: shortness of breath 74 yo F hx CAD, MD, HLD, asthma/COPD on 2L O2 at home, and unspecified CHF who presents with SOB + congestion and cough since wednesday, that is x4 days ago. She has been using her inhalers and not getting relief. Her oxygen saturation was reported to be 70s by EMS, O2 improved to 92 with oxygen at 4 Liters. CXR show pulmonary edema, tropon in is 10, BNP 3366 and has some leg edemal. She doen't have chest pain. ED treatment: IV Lasix, and IV mag. Review of Systems Review of Systems: Gen: no fever Resp: no sob, + cough CV: no chest, no [place], + leg edema GI: No n/v, no abd pain Neuro: No confusion Yes all other systems are reviewed and are negative [facility] Medical History Supplemental oxygen dependent Personal history of nicotine dependence Asthma-COPD overlap syndrome Pulmonary hypertension Acute exacerbation of congestive heart failure Acute respiratory failure with hypoxia Pneumonia Hyperlipidemia MRSA (methicillin resistant Staphylococcus aureus) Anxiety and depression History of blood transfusion Myocardial infarct Diarrhea Arthritis Diabetes GERD (gastroesophageal reflux disease) Coronary artery disease Family History Father Colon cancer Surgical History Hx of colonoscopy Hx of tonsillectomy Hx of cholecystectomy H/O: hysterectomy History of total right knee replacement (TKR) History of cardiac catheterization Social History Household Members: Children Housing: Apartment Are you a primary child care specialist to a significant other at home: No Do you presently have visiting nurse or other home services: Yes Unable to assess alcohol history related to: Unable to respond Alcohol intake: unknown Patient Tobacco Use Status: Former Tobacco user Tobacco use type: Cigarette Years Smoked: 40 Smoked in Last 30 Days: No Second Hand Smoke Exposure: No Use of substances other than those prescribed or required for medical reasons: No Currently Displaying Signs/Symptoms of Drug Intoxication Withdrawal: No Advance Directives: Yes Advance Directives on File: Yes Advance Directives Date on File: 12/25/21 Do you have a plan to hurt others: No Plan Recently lost weight without trying: Yes How much weight loss: 24-33 pounds Eating poorly because of decreased appetite: No Nutrition screen score: 5 Patient : No service: No Current occupational status: retired Meds Allergies Allergy/AdvReac Type Severity Reaction Status Date / Time amoxicillin Allergy Difficulty Verified 02/23/25 15:08 Breathing levofloxacin (From Levaquin) AdvReac Intermediate Muscle Pain Verified 02/23/25 15:08 Pain Med Sensitivity Allergy Unknown none Uncoded 02/23/25 15:08 Home Medications ?Medication ?Instructions ?Recorded ?Confirmed ?Last Taken ?Type cyanocobalamin (vitamin B-12) 1 tab PO DAILY 08/12/20 02/23/25 02/23/25 History 1,000 mcg tablet ferrous sulfate 325 mg (65 mg 1 tab PO BID 08/12/20 02/23/25 02/23/25 History iron) tablet oxybutynin chloride 10 mg 1 tab PO DAILY@1200 08/12/20 02/23/25 02/23/25 History tablet,extended release 24 hr sertraline 50 mg tablet 1 tab PO BEDTIME 08/12/20 02/23/25 02/22/25 History trazodone 50 mg tablet 1 tab PO BEDTIME 08/12/20 02/23/25 02/22/25 History glipizide 5 mg tablet 5 mg PO DAILY 09/30/21 02/23/25 02/23/25 History calcium carbonate 1 tab PO DAILY 10/31/21 02/23/25 02/23/25 History tramadol 50 mg tablet 50 mg PO Q12H PRN severe pain 02/10/22 02/23/25 Unknown History aspirin 81 mg tablet,delayed 81 mg PO DAILY 03/11/22 02/23/25 02/23/25 History release atorvastatin 80 mg tablet 80 mg PO BEDTIME 04/06/24 02/23/25 02/22/25 History pantoprazole 40 mg tablet,delayed 40 mg PO BID@0630,1630 04/06/24 02/23/25 02/23/25 History release ergocalciferol (vitamin D2) 1,250 1,250 mcg PO [place] 05/29/24 02/23/25 02/18/25 History mcg (50,000 unit) capsule magnesium oxide 400 mg (241.3 mg 400 mg PO BID 05/29/24 02/23/25 02/23/25 History magnesium) tablet furosemide 20 mg tablet (Lasix) 20 mg PO DAILY PRN Heart failure 01/11/25 02/23/25 Unknown History symptoms ezetimibe 10 mg tablet 10 mg PO DAILY 02/23/25 02/23/25 02/23/25 History ipratropium 0.5 mg-albuterol 3 mg 3 ml inhalation Q4H PRN wheezing 02/23/25 02/23/25 Unknown History (2.5 mg base)/3 mL nebulization soln ipratropium 20 mcg-albuterol 100 1 puff PO Q4H PRN SOB/wheezing 02/23/25 02/23/25 Unknown History mcg/actuation mist for inhalation (Combivent Respimat) isosorbide mononitrate 30 mg 30 mg PO DAILY 02/23/25 02/23/25 02/23/25 History tablet,extended release 24 hr metformin 850 mg tablet 850 mg PO BID 02/23/25 02/23/25 02/23/25 History metoprolol succinate 25 mg 25 mg PO DAILY 02/23/25 02/23/25 02/23/25 History tablet,extended release 24 hr nitroglycerin 0.4 mg sublingual 0.4 mg sublingual Q5M PRN Chest 02/23/25 02/23/25 Unknown History tablet Pain theophylline 400 mg 400 mg PO DAILY 02/23/25 02/23/25 02/23/25 History tablet,extended release 24 hr Physical Exam Vital Signs and Narrative: Vital Signs: Last Vital Signs Temp 97.9 F 02/23/25 14:59 Pulse 98 02/23/25 14:59 Resp 26 H 02/23/25 14:59 BP 137/58 L 02/23/25 17:27 Pulse Ox 91 L 02/23/25 14:59 O2 Del Method Nasal Cannula 02/23/25 14:59 Oxygen Flow Rate 2 02/23/25 14:59 BMI result Body Mass Index 37.8 Const: Other: General: AO X 3, no acute distress HEENT:normal sclear Resp:No rales, some wheezes CVS: S1,S2,RRR, 1+leg edema GI: +BS, NT, no distention Skin: No rash Neuro: motor grossly intact Psych: appropriate affect Results Labs 02/24/25 06:10 02/24/25 06:10 Labs: Laboratory Results - last 24 hr 02/23/25 02/23/25 02/23/25 16:25 16:26 16:40 MCV 85.1 MCH 27.5 MCHC 32.3 RDW 15.8 Plt Count 186 MPV 9.6 Immature Gran % (Auto) 0.8 H Neut % (Auto) 79.7 H Lymph % (Auto) 13.8 L [place] % (Auto) 5.3 Eos % (Auto) 0.0 Baso % (Auto) 0.4 Lymph # (Auto) 1.0 L [place] # (Auto) 0.4 Eos # (Auto) 0.0 Baso # (Auto) 0.0 Abs Immat Gran (auto) 0.06 H Absolute Neuts (auto) 6.0 Absolute Nucleated RBC 0.000 Nucleated RBC % (auto) 0.0 VBG pH 7.35 VBG pCO2 54 VBG pO2 73 VBG HCO3 30 H VBG O2 Saturation 91.0 VBG Base Excess 3.6 Anion Gap 10 L Estim Creat Clear Calc 72.3 Estimated GFR > 60 Random Glucose 310 H Lactic Acid 2.5 H* Calcium 9.0 Magnesium 1.5 L Total Bilirubin 0.3 AST 21 ALT 16 Alkaline Phosphatase 102 Troponin I High Sens 20.0 H D B-Natriuretic Peptide 366 H Total Protein 5.6 L Albumin 3.4 L Influenza Type A (PCR) NEGATIVE Influenza Type B (PCR) NEGATIVE RSV RNA Qual (PCR) NEGATIVE SARS-CoV-2 RNA (RT-PCR) NEGATIVE Imaging Radiologist's Impressions: Impressions Chest X-Ray 02/23/25 15:25 IMPRESSION: Mild interstitial edema in the correct clinical settings. 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 and exacerbation of heart failure Acute hypoxic respiratory failure secondary to asthma/COPD overlap syndrome and heart failure treat underlying chf and copd/asthma titrate O2 to about 94% Copd/asthma overlap syndrome with acute exacerbation continue O2, adjsut to O2 saturation of 92 to 9% bronchodilators by Neb IV steroid solumedrol 40 bid No indication for Abx at this time CHF, last echo EF 55 to 60% IV Lasix monitor I/O monitor bmp, BNP if not improving, cardiology consult Diabetes mellitus type 2 Sliding scale, ADA diet resume glipizide tomorrow monitor for hyperglycemia in light of steroid CAD/HLD Continue metoprolol, aspirin and statin Mental health Continue home medications GERD Continue PPI DVT prophylaxis: lovenox Fulll code Quality Stroke Does the patient have a stroke diagnosis?: No VTE Prior VTE?: No VTE Risk Level:: Medical - moderate - high VTE Device Contraindication: Treatment Not Indicated VTE Drug Contraindication: N/A - Med Ordered
[2025-02-23 18:34] LABS: Reflex Lactate? Lactic Acid Added
[2025-02-23] MEDS: methylPREDNISolone Sod Succ 40 MG VIAL IVPUSH (18:42)
[2025-02-23] MEDS: Enoxaparin Sodium 40 MG/0.4 ML SYRINGE SUBCUT (18:42)
[2025-02-23 19:04] LABS: ~Lactic Acid-LAB USE ONLY 1.8 mmol/L (0.5-2.0)
[2025-02-23 19:12] LABS: Troponin-I High Sensitivity 21.2 ng/L (<3.5-17.0)
[2025-02-23 20:52] LABS: Glucose, Whole Blood 277 mg/dL (60-115)
[2025-02-23] MEDS: guaiFENesin 100 MG/5 ML 5 ML LIQUID PO (20:52)
[2025-02-23] MEDS: Insulin Lispro 100 UNIT/ML 3 ML VIAL SUBCUT (20:53)
[2025-02-23] MEDS: 0.9 % Sodium Chloride Flush 3 ML SYRINGE IVFLUSH (20:55)
--- NOTE | 2025-02-23 21:17 | PHA.MEDREC ---
Pharmacy Consult ? Medication Reconciliation Pharmacy has completed the medication reconciliation, spoke to patient at bedside who confirmed all medications when provided with names. Pt was unsure about theophylline but has recent claims.
[2025-02-23] MEDS: Albuterol/Iprat 2.5/0.5MG 3 ML AMPUL.NEB INHALE (21:19)
[2025-02-24] VITALS (9 sets, daily range): BP systolic 129–149; BP diastolic 60–72; PULSE 73–94; RESP 16–20; TEMP 36.1–36.8; O2SAT 90–98
[2025-02-24] MEDS: traZODone HCL 50 MG TABLET PO ×2 (00:35→21:26)
[2025-02-24] MEDS: Sertraline HCL 50 MG TABLET PO ×2 (00:35→21:26)
[2025-02-24] MEDS: Atorvastatin Calcium 80 MG TABLET PO ×2 (00:35→21:26)
[2025-02-24] MEDS: methylPREDNISolone Sod Succ 40 MG VIAL IVPUSH (05:36)
[2025-02-24 07:00] LABS: Hematocrit 32.1 % (37.0-47.0); Hemoglobin 10.2 g/dl (12.0-16.0); Mean Corpuscular HGB Conc 31.8 g/dl (31.0-35.0); Mean Corpuscular Hemoglobin 27.5 pg (27.0-33.0); Mean Corpuscular Volume 86.5 fL (80.0-98.0); Mean Platelet Volume 9.9 fL (9.4-12.3); Platelet Count 218 X10*3/uL (160-400); Red Blood Count 3.71 X10*6/uL (4.20-5.50); Red Cell Distribution Width 15.9 % (11.0-16.0); White Blood Count 8.3 X10*3/uL (4.8-10.8)
[2025-02-24 07:09] LABS: Glucose, Whole Blood 259 mg/dL (60-115)
[2025-02-24 07:25] LABS: Anion Gap 13 (12-20); Blood Urea Nitrogen 20 mg/dL (9-16); Calcium 9.5 mg/dL (8.4-10.2); Carbon Dioxide 28 mmol/L (22-29); Chloride 102 mmol/L (96-108); Creatinine Clr Calc Pharmacy 59.8; Estimated Glomerular Filt Rate > 60; Glucose Random 271 mg/dL (60-115); Potassium 4.3 mmol/L (3.3-5.1); Sodium 139 mmol/L (135-145)
[2025-02-24] MEDS: Albuterol/Iprat 2.5/0.5MG 3 ML AMPUL.NEB INHALE ×3 (07:40→18:49)
[2025-02-24] MEDS: Cyanocobalamin (Vitamin B-12) 1,000 MCG TABLET 1000 MCG PO (09:35)
[2025-02-24] MEDS: Theophylline Anhydrous ER 400 MG TAB.ER.24H PO (09:35)
[2025-02-24] MEDS: Magnesium Oxide 400 MG TABLET PO ×2 (09:36→21:26)
[2025-02-24] MEDS: Furosemide 40 MG/4 ML VIAL IVPUSH ×2 (09:36→18:20)
[2025-02-24] MEDS: Calcium Oyster Shell Elemental 500 MG TABLET PO (09:36)
[2025-02-24] MEDS: Aspirin Enteric Coated 81 MG TABLET.DR PO (09:36)
[2025-02-24] MEDS: Acetaminophen 325 MG TABLET 650 MG PO (09:36)
[2025-02-24] MEDS: Metoprolol Succinate ER 25 MG TAB.ER.24H PO (09:36)
[2025-02-24] MEDS: Isosorbide Mononitrate 30 MG TAB.ER.24H PO (09:36)
[2025-02-24] MEDS: Ezetimibe 10 MG TABLET PO (09:36)
[2025-02-24] MEDS: Insulin Lispro 100 UNIT/ML 3 ML VIAL SUBCUT ×4 (09:37→19:38)
[2025-02-24] MEDS: 0.9 % Sodium Chloride Flush 3 ML SYRINGE IVFLUSH ×2 (09:37→18:20)
[2025-02-24] MEDS: guaiFENesin 100 MG/5 ML 5 ML LIQUID PO ×3 (09:46→23:04)
[2025-02-24] MEDS: Benzonatate 100 MG CAPSULE PO ×2 (09:46→17:03)
[2025-02-24 10:54] LABS: Glucose, Whole Blood 457 mg/dL (60-115)
--- NOTE | 2025-02-24 11:14 | P.PNIM_ITS ---
Subjective Subjective Date of Service: 02/24/25 Interval History: f/u on copd exac she's still sob but better hyperglycemia Physical Exam 2 Vital Signs: Vital Signs: Last Vital Signs Temp 97.7 F 02/24/25 07:24 Pulse 75 02/24/25 07:42 Resp 16 02/24/25 07:42 BP 149/72 H 02/24/25 07:24 Pulse Ox 94 02/24/25 07:24 O2 Del Method Nasal Cannula 02/24/25 07:24 O2 Flow Rate 2.5 02/24/25 07:24 Oxygen Flow Rate 3 02/23/25 18:50 BMI result Body Mass Index 35.5 Const: Other: General: AO X 3, no acute distress Resp: CTA bilateral, no rales CVS: S1,S2,RRR GI: +BS, NT, no distention Skin: No rash Neuro: motor grossly intact Psych: appropriate affect Objective Data Active Medications Acetaminophen (Acetaminophen 325 Mg Tablet) 650 mg PO Q6H PRN PRN Reason: Pain, Mild 1-3,fever,headache Last Admin: 02/24/25 09:36 Dose: 650 mg Documented By: HO Al Hydroxide/Mg Hydroxide (Magnesium Hydrox/Alum Hydrox 30 Ml Oral.Susp) 30 ml PO Q4H PRN PRN Reason: Heartburn Albuterol/Ipratropium (Albuterol/Iprat 2.5/0.5mg 3 Ml Ampul.Neb) 3 ml INHALE RQ6H WHILE AWAKE [facility] Last Admin: 02/24/25 07:40 Dose: 3 ml Documented By: LILI Albuterol/Ipratropium (Albuterol/Iprat 2.5/0.5mg 3 Ml Ampul.Neb) 3 ml INHALE Q2H PRN PRN Reason: Shortness of Breath/Wheezing Aspirin (Aspirin Enteric Coated 81 Mg Tablet.) 81 mg PO DAILY [facility] Last Admin: 02/24/25 09:36 Dose: 81 mg Documented By: HO Atorvastatin Calcium (Atorvastatin Calcium 80 Mg Tablet) 80 mg PO BEDTIME [facility] Last Admin: 02/24/25 00:35 Dose: 80 mg Documented By: VIVI Benzonatate (Benzonatate 100 Mg Capsule) 100 mg PO TID PRN PRN Reason: Cough Last Admin: 02/24/25 09:46 Dose: 100 mg Documented By: HO Calcium Carbonate (Calcium Carbonate 750 Mg Tab.Chew) 750 mg PO Q4H PRN PRN Reason: Heartburn Calcium Carbonate (Calcium Oyster Shell Elemental 500 Mg Tablet) 500 mg PO DAILY [facility] Last Admin: 02/24/25 09:36 Dose: 500 mg Documented By: HO Cyanocobalamin (Cyanocobalamin (Vitamin B-12) 1,000 Mcg Tablet) 1,000 mcg PO DAILY [facility] Last Admin: 02/24/25 09:35 Dose: 1,000 mcg Documented By: HO Dextrose (Dextrose 50 % 25 Gm/50 Ml Syringe) 25 gm IVPUSH Q15M PRN; Protocol PRN Reason: per Hypoglycemia Standing Ord. Ezetimibe (Ezetimibe 10 Mg Tablet) 10 mg PO DAILY [facility] Last Admin: 02/24/25 09:36 Dose: 10 mg Documented By: HO Enoxaparin Sodium (Enoxaparin Sodium 40 Mg/0.4 Ml Syringe) 40 mg SUBCUT Q24H [facility] Last Admin: 02/23/25 18:42 Dose: 40 mg Documented By: KRIS Ergocalciferol (Ergocalciferol (Vitamin D2) 1,250 Mcg Capsule) 1,250 mcg PO [place]@0900 [facility] Ferrous Sulfate (Ferrous Sulfate 324 Mg Tablet.Dr) 324 mg PO BID [facility] Fluticasone/Umeclidinium/Vilanterol (Fluticasone/Umeclidinium/Vilanterol 200/62.5/25 Blst.W.Dev) 1 puff INHALE RDAILY [facility] Furosemide (Furosemide 40 Mg/4 Ml Vial) 40 mg IVPUSH BID@0900,1800 [facility]; Protocol Last Admin: 02/24/25 09:36 Dose: 40 mg Documented By: HO Glipizide (Glipizide 5 Mg Tablet) 5 mg PO DAILY@0730 [facility] Glucose (Glucose Gel 15 Gm Gel..Gram.) 15 gm PO Q15M PRN; Protocol PRN Reason: per Hypoglycemia Standing Ord. Guaifenesin (Guaifenesin 100 Mg/5 Ml 5 Ml Liquid) 5 ml PO Q6H PRN PRN Reason: Cough Last Admin: 02/24/25 09:46 Dose: 5 ml Documented By: HO Insulin Human Lispro (Insulin Lispro 100 Unit/Ml 3 Ml Vial) 0 unit SUBCUT QIDACHS [facility]; Protocol Last Admin: 02/24/25 09:37 Dose: 6 unit Documented By: HO Isosorbide Mononitrate (Isosorbide Mononitrate 30 Mg Tab.Er.24h) 30 mg PO DAILY [facility]; Protocol Last Admin: 02/24/25 09:36 Dose: 30 mg Documented By: HO Magnesium Hydroxide (Milk Of Magnesia 30 Ml Oral.Susp) 30 ml PO DAILY PRN PRN Reason: Constipation Magnesium Oxide (Magnesium Oxide 400 Mg Tablet) 400 mg PO BID [facility] Last Admin: 02/24/25 09:36 Dose: 400 mg Documented By: HO Melatonin (Melatonin 3 Mg Tablet) 6 mg PO BEDTIME PRN PRN Reason: Insomnia Metformin HCl (Metformin Hcl 850 Mg Tablet) 850 mg PO BIDWM [facility] Methylprednisolone Sodium Succinate (Methylprednisolone Sod Succ 40 Mg Vial) 40 mg IVPUSH Q12H [facility] Last Admin: 02/24/25 05:36 Dose: 40 mg Documented By: VIVI Metoprolol Succinate (Metoprolol Succinate Er 25 Mg Tab.Er.24h) 25 mg PO DAILY [facility]; Protocol Last Admin: 02/24/25 09:36 Dose: 25 mg Documented By: HO Nitroglycerin (Nitroglycerin 0.4 Mg Tab.Subl) 0.4 mg SUBLINGUAL Q5M PRN PRN Reason: Chest Pain Ondansetron HCl (Ondansetron Hcl 4 Mg/2 Ml Vial) 4 mg IVPUSH Q8H PRN PRN Reason: Nausea and Vomiting Oxybutynin Chloride (Oxybutynin Chloride Er 5 Mg Tab.Er.24) 10 mg PO DAILY@1200 [place] Sertraline HCl (Sertraline Hcl 50 Mg Tablet) 50 mg PO BEDTIME [facility] Last Admin: 02/24/25 00:35 Dose: 50 mg Documented By: VIVI Sodium Chloride (0.9 % Sodium Chloride Flush 3 Ml Syringe) 3 ml IVFLUSH QSHIFT [facility] Last Admin: 02/24/25 09:37 Dose: 3 ml Documented By: HO Theophylline (Theophylline Anhydrous Er 400 Mg Tab.Er.24h) 400 mg PO DAILY [facility] Last Admin: 02/24/25 09:35 Dose: 400 mg Documented By: HO Tramadol HCl (Tramadol Hcl 50 Mg Tablet) 50 mg PO Q12H PRN PRN Reason: severe pain Trazodone HCl (Trazodone Hcl 50 Mg Tablet) 50 mg PO BEDTIME [facility] Last Admin: 02/24/25 00:35 Dose: 50 mg Documented By: VIVI Labs 02/24/25 06:10 02/24/25 06:10 Labs: Laboratory Results - last 24 hr 02/23/25 02/23/25 02/23/25 16:25 16:26 16:40 MCV 85.1 MCH 27.5 MCHC 32.3 RDW 15.8 Plt Count 186 MPV 9.6 Immature Gran % (Auto) 0.8 H Neut % (Auto) 79.7 H Lymph % (Auto) 13.8 L Howard % (Auto) 5.3 Eos % (Auto) 0.0 Baso % (Auto) 0.4 Lymph # (Auto) 1.0 L Howard # (Auto) 0.4 Eos # (Auto) 0.0 Baso # (Auto) 0.0 Abs Immat Gran (auto) 0.06 H Absolute Neuts (auto) 6.0 Absolute Nucleated RBC 0.000 Nucleated RBC % (auto) 0.0 VBG pH 7.35 VBG pCO2 54 VBG pO2 73 VBG HCO3 30 H VBG O2 Saturation 91.0 VBG Base Excess 3.6 Anion Gap 10 L Estim Creat Clear Calc 72.3 Estimated GFR > 60 POC Glucose Random Glucose 310 H Lactic Acid 2.5 H* Lactic Acid F/U @ 2Hr Calcium 9.0 Magnesium 1.5 L Total Bilirubin 0.3 AST 21 ALT 16 Alkaline Phosphatase 102 Troponin I High Sens 20.0 H D B-Natriuretic Peptide 366 H Total Protein 5.6 L Albumin 3.4 L Influenza Type A (PCR) NEGATIVE Influenza Type B (PCR) NEGATIVE RSV RNA Qual (PCR) NEGATIVE SARS-CoV-2 RNA (RT-PCR) NEGATIVE 02/23/25 02/23/25 02/23/25 18:37 18:43 20:34 MCV MCH MCHC RDW Plt Count MPV Immature Gran % (Auto) Neut % (Auto) Lymph % (Auto) Howard % (Auto) Eos % (Auto) Baso % (Auto) Lymph # (Auto) Howard # (Auto) Eos # (Auto) Baso # (Auto) Abs Immat Gran (auto) Absolute Neuts (auto) Absolute Nucleated RBC Nucleated RBC % (auto) VBG pH VBG pCO2 VBG pO2 VBG HCO3 VBG O2 Saturation VBG Base Excess Anion Gap Estim Creat Clear Calc Estimated GFR POC Glucose 277 H Random Glucose Lactic Acid Lactic Acid F/U @ 2Hr 1.8 Calcium Magnesium Total Bilirubin AST ALT Alkaline Phosphatase Troponin I High Sens 21.2 H B-Natriuretic Peptide Total Protein Albumin Influenza Type A (PCR) Influenza Type B (PCR) RSV RNA Qual (PCR) SARS-CoV-2 RNA (RT-PCR) 02/24/25 02/24/25 02/24/25 06:10 07:03 10:46 MCV 86.5 MCH 27.5 MCHC 31.8 RDW 15.9 Plt Count 218 MPV 9.9 Immature Gran % (Auto) Neut % (Auto) Lymph % (Auto) Howard % (Auto) Eos % (Auto) Baso % (Auto) Lymph # (Auto) Howard # (Auto) Eos # (Auto) Baso # (Auto) Abs Immat Gran (auto) Absolute Neuts (auto) Absolute Nucleated RBC 0.000 Nucleated RBC % (auto) 0.0 VBG pH VBG pCO2 VBG pO2 VBG HCO3 VBG O2 Saturation VBG Base Excess Anion Gap 13 Estim Creat Clear Calc 59.8 Estimated GFR > 60 POC Glucose 259 H 457 H* Random Glucose 271 H Lactic Acid Lactic Acid F/U @ 2Hr Calcium 9.5 Magnesium Total Bilirubin AST ALT Alkaline Phosphatase Troponin I High Sens B-Natriuretic Peptide Total Protein Albumin Influenza Type A (PCR) Influenza Type B (PCR) RSV RNA Qual (PCR) SARS-CoV-2 RNA (RT-PCR) Assessment and Plan (1) Acute respiratory failure with hypoxia: Status: Inactive Plan 74-year-old female with copd/asthma overalp syndrome, chronic O2 use, chf and pulm HTN here with 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 heart failure Acute hypoxic respiratory failure secondary to asthma/COPD overlap syndrome and heart failure treat underlying chf and copd/asthma titrate O2 to about 94% Copd/asthma overlap syndrome with acute exacerbation continue O2, adjsut to O2 saturation of 92 to 9% bronchodilators by Neb IV steroid solumedrol, change to 20 bid in light of hyperglycemni No indication for Abx at this time CHF, last echo EF 55 to 60% IV Lasix monitor I/O monitor bmp, BNP if not improving, cardiology consult Diabetes mellitus type 2 Sliding scale, ADA diet resume glipizide and metformin monitor for hyperglycemia in light of steroid CAD/HLD Continue metoprolol, aspirin and statin Mental health continue zoloft, trazadone GERD Continue PPI DVT prophylaxis: lovenox Fulll code Quality Stroke Does the patient have a stroke diagnosis?: No VTE Prior VTE?: No VTE Risk Level:: Medical - moderate - high VTE Device Contraindication: Treatment Not Indicated VTE Drug Contraindication: N/A - Med Ordered
[2025-02-24] MEDS: oxyBUTYnin chloride ER 5 MG TAB.ER.24 10 MG PO (11:52)
--- NOTE | 2025-02-24 12:43 | MHC.CM.PN ---
IMM 02/24/25, Pt. lives alone, he has [facility] services MWF through [facility], PCP confirmed: Dr. Brunner. HCP is on file and confitmed: Adali and Juan. Pt. has DME: home O2 from [facility]. She can arrange transport home at [place]. DCP: home, resume home health aid care. CM to follow for DC needs.
[2025-02-24 15:52] LABS: Glucose, Whole Blood 414 mg/dL (60-115)
[2025-02-24] MEDS: metFORMIN HCl 850 MG TABLET PO (16:14)
[2025-02-24] MEDS: Insulin Regular, Human 100 UNIT/ML 10 ML VIAL 7 UNIT IVPUSH (16:14)
[2025-02-24 16:41] LABS: Glucose, Whole Blood 410 mg/dL (60-115)
[2025-02-24] MEDS: Calcium Carbonate 750 MG TAB.CHEW PO (17:05)
[2025-02-24] MEDS: methylPREDNISolone Sod Succ 40 MG VIAL 20 MG IVPUSH (18:19)
[2025-02-24] MEDS: Enoxaparin Sodium 40 MG/0.4 ML SYRINGE SUBCUT (18:27)
[2025-02-24 20:00] LABS: Glucose, Whole Blood 304 mg/dL (60-115)
[2025-02-24] MEDS: Ferrous Sulfate 324 MG TABLET.DR PO (21:26)
[2025-02-25] VITALS (8 sets, daily range): BP systolic 127–153; BP diastolic 58–67; PULSE 71–100; RESP 16–20; TEMP 36.2–37; O2SAT 92–100
[2025-02-25] MEDS: 0.9 % Sodium Chloride Flush 3 ML SYRINGE IVFLUSH ×4 (00:44→21:25)
[2025-02-25] MEDS: methylPREDNISolone Sod Succ 40 MG VIAL 20 MG IVPUSH (05:41)
[2025-02-25 06:06] LABS: Anion Gap 15 (12-20); Blood Urea Nitrogen 23 mg/dL (9-16); Calcium 9.7 mg/dL (8.4-10.2); Carbon Dioxide 30 mmol/L (22-29); Chloride 100 mmol/L (96-108); Creatinine Clr Calc Pharmacy 51.7; Estimated Glomerular Filt Rate 57; Glucose Random 210 mg/dL (60-115); Potassium 3.9 mmol/L (3.3-5.1); Sodium 141 mmol/L (135-145)
[2025-02-25] MEDS: Calcium Carbonate 750 MG TAB.CHEW PO ×3 (06:14→20:42)
[2025-02-25] MEDS: metFORMIN HCl 850 MG TABLET PO ×2 (07:54→16:39)
[2025-02-25] MEDS: Isosorbide Mononitrate 30 MG TAB.ER.24H PO (07:54)
[2025-02-25] MEDS: Metoprolol Succinate ER 25 MG TAB.ER.24H PO (07:54)
[2025-02-25] MEDS: Ferrous Sulfate 324 MG TABLET.DR PO ×2 (07:54→20:43)
[2025-02-25] MEDS: glipiZIDE 5 MG TABLET PO (07:54)
[2025-02-25] MEDS: Ezetimibe 10 MG TABLET PO (07:54)
[2025-02-25] MEDS: Magnesium Oxide 400 MG TABLET PO ×2 (07:54→20:43)
[2025-02-25] MEDS: Theophylline Anhydrous ER 400 MG TAB.ER.24H PO (07:54)
[2025-02-25] MEDS: Calcium Oyster Shell Elemental 500 MG TABLET PO (07:54)
[2025-02-25] MEDS: Benzonatate 100 MG CAPSULE PO (07:55)
[2025-02-25] MEDS: Ergocalciferol (Vitamin D2) 1,250 MCG CAPSULE 1250 MCG PO (07:55)
[2025-02-25] MEDS: Cyanocobalamin (Vitamin B-12) 1,000 MCG TABLET 1000 MCG PO (07:55)
[2025-02-25] MEDS: Insulin Lispro 100 UNIT/ML 3 ML VIAL SUBCUT ×3 (07:55→21:24)
[2025-02-25] MEDS: Aspirin Enteric Coated 81 MG TABLET.DR PO (07:55)
[2025-02-25] MEDS: Furosemide 40 MG/4 ML VIAL IVPUSH (07:55)
[2025-02-25] MEDS: Fluticasone/Umeclidinium/Vilanterol 200/62.5/25 BLST.W.DEV 1 PUFF INHALE (08:01)
[2025-02-25] MEDS: Albuterol/Iprat 2.5/0.5MG 3 ML AMPUL.NEB INHALE ×3 (08:01→18:39)
--- NOTE | 2025-02-25 10:58 | HO.PM.IMPN ---
Subjective Subjective Date of Service: 02/25/25 Interval History: f/u on copd exa and heart failure symptoms are better still with cough and generally weak Physical Exam Vital Signs: Vital Signs: Last Vital Signs Temp 97.1 F 02/25/25 08:00 Pulse 71 02/25/25 08:03 Resp 18 02/25/25 08:03 BP 140/64 H 02/25/25 08:00 Pulse Ox 100 02/25/25 08:00 O2 Del Method Nasal Cannula 02/25/25 08:00 O2 Flow Rate 2 02/25/25 08:00 Oxygen Flow Rate 3 02/23/25 18:50 BMI result Body Mass Index 35.5 Const: Other: General: AO X 3, no acute distress Resp: CTA bilateral, no rales CVS: S1,S2,RRR GI: +BS, NT, no distention Skin: No rash Neuro: motor grossly intact Psych: appropriate affect Objective Data Active Medications Acetaminophen (Acetaminophen 325 Mg Tablet) 650 mg PO Q6H PRN PRN Reason: Pain, Mild 1-3,fever,headache Last Admin: 02/24/25 09:36 Dose: 650 mg Documented By: HO Al Hydroxide/Mg Hydroxide (Magnesium Hydrox/Alum Hydrox 30 Ml Oral.Susp) 30 ml PO Q4H PRN PRN Reason: Heartburn Albuterol/Ipratropium (Albuterol/Iprat 2.5/0.5mg 3 Ml Ampul.Neb) 3 ml INHALE RQ6H WHILE AWAKE [facility] Last Admin: 02/25/25 08:01 Dose: 3 ml Documented By: LILI Albuterol/Ipratropium (Albuterol/Iprat 2.5/0.5mg 3 Ml Ampul.Neb) 3 ml INHALE Q2H PRN PRN Reason: Shortness of Breath/Wheezing Aspirin (Aspirin Enteric Coated 81 Mg Tablet.) 81 mg PO DAILY [facility] Last Admin: 02/25/25 07:55 Dose: 81 mg Documented By: HO Atorvastatin Calcium (Atorvastatin Calcium 80 Mg Tablet) 80 mg PO BEDTIME [facility] Last Admin: 02/24/25 21:26 Dose: 80 mg Documented By: VIVI Benzonatate (Benzonatate 100 Mg Capsule) 100 mg PO TID PRN PRN Reason: Cough Last Admin: 02/25/25 07:55 Dose: 100 mg Documented By: HO Calcium Carbonate (Calcium Carbonate 750 Mg Tab.Chew) 750 mg PO Q4H PRN PRN Reason: Heartburn Last Admin: 02/25/25 06:14 Dose: 750 mg Documented By: VIVI Calcium Carbonate (Calcium Oyster Shell Elemental 500 Mg Tablet) 500 mg PO DAILY [facility] Last Admin: 02/25/25 07:54 Dose: 500 mg Documented By: HO Cyanocobalamin (Cyanocobalamin (Vitamin B-12) 1,000 Mcg Tablet) 1,000 mcg PO DAILY [facility] Last Admin: 02/25/25 07:55 Dose: 1,000 mcg Documented By: HO Dextrose (Dextrose 50 % 25 Gm/50 Ml Syringe) 25 gm IVPUSH Q15M PRN; Protocol PRN Reason: per Hypoglycemia Standing Ord. Ezetimibe (Ezetimibe 10 Mg Tablet) 10 mg PO DAILY [facility] Last Admin: 02/25/25 07:54 Dose: 10 mg Documented By: HO Enoxaparin Sodium (Enoxaparin Sodium 40 Mg/0.4 Ml Syringe) 40 mg SUBCUT Q24H [facility] Last Admin: 02/24/25 18:27 Dose: 40 mg Documented By: HO Ergocalciferol (Ergocalciferol (Vitamin D2) 1,250 Mcg Capsule) 1,250 mcg PO [place]@0900 [facility] Last Admin: 02/25/25 07:55 Dose: 1,250 mcg Documented By: HO Ferrous Sulfate (Ferrous Sulfate 324 Mg Tablet.) 324 mg PO BID [facility] Last Admin: 02/25/25 07:54 Dose: 324 mg Documented By: HO Fluticasone/Umeclidinium/Vilanterol (Fluticasone/Umeclidinium/Vilanterol 200/62.5/25 Blst.W.Dev) 1 puff INHALE RDAILY [facility] Last Admin: 02/25/25 08:01 Dose: 1 puff Documented By: LILI Furosemide (Furosemide 40 Mg/4 Ml Vial) 40 mg IVPUSH BID@0900,1800 [facility]; Protocol Last Admin: 02/25/25 07:55 Dose: 40 mg Documented By: HO Glipizide (Glipizide 5 Mg Tablet) 5 mg PO DAILY@0730 [facility] Last Admin: 02/25/25 07:54 Dose: 5 mg Documented By: HO Glucose (Glucose Gel 15 Gm Gel..Gram.) 15 gm PO Q15M PRN; Protocol PRN Reason: per Hypoglycemia Standing Ord. Guaifenesin (Guaifenesin 100 Mg/5 Ml 5 Ml Liquid) 5 ml PO Q6H PRN PRN Reason: Cough Last Admin: 02/24/25 23:04 Dose: 5 ml Documented By: VIVI Insulin Human Lispro (Insulin Lispro 100 Unit/Ml 3 Ml Vial) 0 unit SUBCUT QIDACHS [facility]; Protocol Last Admin: 02/25/25 07:55 Dose: 2 unit Documented By: HO Isosorbide Mononitrate (Isosorbide Mononitrate 30 Mg Tab.Er.24h) 30 mg PO DAILY [facility]; Protocol Last Admin: 02/25/25 07:54 Dose: 30 mg Documented By: HO Magnesium Hydroxide (Milk Of Magnesia 30 Ml Oral.Susp) 30 ml PO DAILY PRN PRN Reason: Constipation Magnesium Oxide (Magnesium Oxide 400 Mg Tablet) 400 mg PO BID [facility] Last Admin: 02/25/25 07:54 Dose: 400 mg Documented By: HO Melatonin (Melatonin 3 Mg Tablet) 6 mg PO BEDTIME PRN PRN Reason: Insomnia Metformin HCl (Metformin Hcl 850 Mg Tablet) 850 mg PO BIDWM [facility] Last Admin: 02/25/25 07:54 Dose: 850 mg Documented By: HO Methylprednisolone Sodium Succinate (Methylprednisolone Sod Succ 40 Mg Vial) 20 mg IVPUSH Q12H [facility] Last Admin: 02/25/25 05:41 Dose: 20 mg Documented By: VIVI Metoprolol Succinate (Metoprolol Succinate Er 25 Mg Tab.Er.24h) 25 mg PO DAILY [facility]; Protocol Last Admin: 02/25/25 07:54 Dose: 25 mg Documented By: HO Nitroglycerin (Nitroglycerin 0.4 Mg Tab.Subl) 0.4 mg SUBLINGUAL Q5M PRN PRN Reason: Chest Pain Ondansetron HCl (Ondansetron Hcl 4 Mg/2 Ml Vial) 4 mg IVPUSH Q8H PRN PRN Reason: Nausea and Vomiting Oxybutynin Chloride (Oxybutynin Chloride Er 5 Mg Tab.Er.24) 10 mg PO DAILY@1200 [facility] Last Admin: 02/24/25 11:52 Dose: 10 mg Documented By: HO Sertraline HCl (Sertraline Hcl 50 Mg Tablet) 50 mg PO BEDTIME [facility] Last Admin: 02/24/25 21:26 Dose: 50 mg Documented By: VIVI Sodium Chloride (0.9 % Sodium Chloride Flush 3 Ml Syringe) 3 ml IVFLUSH QSHIFT [facility] Last Admin: 02/25/25 07:56 Dose: 3 ml Documented By: HO Theophylline (Theophylline Anhydrous Er 400 Mg Tab.Er.24h) 400 mg PO DAILY [facility] Last Admin: 02/25/25 07:54 Dose: 400 mg Documented By: HO Tramadol HCl (Tramadol Hcl 50 Mg Tablet) 50 mg PO Q12H PRN PRN Reason: severe pain Trazodone HCl (Trazodone Hcl 50 Mg Tablet) 50 mg PO BEDTIME [facility] Last Admin: 02/24/25 21:26 Dose: 50 mg Documented By: VIVI Labs 02/24/25 06:10 02/25/25 05:33 Labs: Laboratory Results - last 24 hr 02/24/25 02/24/25 02/24/25 15:43 16:37 19:13 Hold Purple Top Anion Gap Estim Creat Clear Calc Estimated GFR POC Glucose 414 H* 410 H* 304 H Random Glucose Calcium 02/25/25 05:33 Hold Purple Top SEE NOTE Anion Gap 15 Estim Creat Clear Calc 51.7 Estimated GFR 57 POC Glucose Random Glucose 210 H Calcium 9.7 Microbiology Microbiology Results: Microbiology 02/23/25 16:25 Blood Culture - Preliminary Blood - Venous No growth after 24 hours. 02/23/25 16:25 Blood Culture - Preliminary Blood - Venous No growth after 24 hours. 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 heart failure Acute hypoxic respiratory failure secondary to asthma/COPD overlap syndrome and heart failure treat underlying chf and copd/asthma titrate O2 to about 94% Copd/asthma overlap syndrome with acute exacerbation continue O2, adjsut to O2 saturation of 92 to 94% bronchodilators by Neb DC IV steroid, po prednisone starting tomorrow No indication for Abx at this time CHF, last echo EF 55 to 60% negative negative 4600 IV Lasix to PO monitor I/O monitor bmp, BNP if not improving, cardiology consult Diabetes mellitus type 2 with hyperglycemia, required iv insulin and additional sub cut insulin yesterday, blood sugar are better but stillhigh Sliding scale, ADA diet continue glipizide and metformin monitor for hyperglycemia in light of steroid CAD/HLD Continue metoprolol, aspirin and statin Mental health continue zoloft, trazadone GERD Continue PPI DVT prophylaxis: lovenox Fulll code P'T eval tomorrow Quality Stroke Does the patient have a stroke diagnosis?: No VTE Prior VTE?: No VTE Risk Level:: Medical - moderate - high VTE Device Contraindication: Treatment Not Indicated VTE Drug Contraindication: N/A - Med Ordered
[2025-02-25 11:33] LABS: Glucose, Whole Blood 261 mg/dL (60-115)
[2025-02-25] MEDS: oxyBUTYnin chloride ER 5 MG TAB.ER.24 10 MG PO (12:13)
[2025-02-25] MEDS: guaiFEN/Codeine SF 200/20/10ML 10 ML LIQUID 5 ML PO (12:13)
[2025-02-25] MEDS: Acetaminophen 325 MG TABLET 650 MG PO (12:18)
[2025-02-25 16:32] LABS: Glucose, Whole Blood 130 mg/dL (60-115)
[2025-02-25] MEDS: Enoxaparin Sodium 40 MG/0.4 ML SYRINGE SUBCUT (18:26)
[2025-02-25] MEDS: traZODone HCL 50 MG TABLET PO (20:43)
[2025-02-25] MEDS: Atorvastatin Calcium 80 MG TABLET PO (20:43)
[2025-02-25] MEDS: Melatonin 3 MG TABLET 6 MG PO (20:43)
[2025-02-25] MEDS: Sertraline HCL 50 MG TABLET PO (20:43)
[2025-02-25 21:16] LABS: Glucose, Whole Blood 151 mg/dL (60-115)
[2025-02-26] VITALS (10 sets, daily range): BP systolic 100–147; BP diastolic 53–67; PULSE 80–95; RESP 16–20; TEMP 36.1–36.9; O2SAT 92–99
[2025-02-26 06:56] LABS: Glucose, Whole Blood 140 mg/dL (60-115)
[2025-02-26 07:44] LABS: Anion Gap 13 (12-20); Blood Urea Nitrogen 30 mg/dL (9-16); Calcium 10.4 mg/dL (8.4-10.2); Carbon Dioxide 34 mmol/L (22-29); Chloride 98 mmol/L (96-108); Creatinine Clr Calc Pharmacy 41.3; Estimated Glomerular Filt Rate 44; Glucose Random 149 mg/dL (60-115); Potassium 4.1 mmol/L (3.3-5.1); Sodium 141 mmol/L (135-145)
[2025-02-26] MEDS: Aspirin Enteric Coated 81 MG TABLET.DR PO (07:56)
[2025-02-26] MEDS: Magnesium Oxide 400 MG TABLET PO ×2 (07:56→20:40)
[2025-02-26] MEDS: Ezetimibe 10 MG TABLET PO (07:56)
[2025-02-26] MEDS: Metoprolol Succinate ER 25 MG TAB.ER.24H PO (07:56)
[2025-02-26] MEDS: Calcium Oyster Shell Elemental 500 MG TABLET PO (07:56)
[2025-02-26] MEDS: metFORMIN HCl 850 MG TABLET PO ×2 (07:57→16:14)
[2025-02-26] MEDS: Isosorbide Mononitrate 30 MG TAB.ER.24H PO (07:57)
[2025-02-26] MEDS: Furosemide 40 MG TABLET PO (07:57)
[2025-02-26] MEDS: Theophylline Anhydrous ER 400 MG TAB.ER.24H PO (07:57)
[2025-02-26] MEDS: Ferrous Sulfate 324 MG TABLET.DR PO ×2 (07:57→20:40)
[2025-02-26] MEDS: 0.9 % Sodium Chloride Flush 3 ML SYRINGE IVFLUSH ×3 (07:58→20:44)
[2025-02-26] MEDS: glipiZIDE 5 MG TABLET PO (07:58)
[2025-02-26] MEDS: Cyanocobalamin (Vitamin B-12) 1,000 MCG TABLET 1000 MCG PO (07:58)
[2025-02-26] MEDS: Fluticasone/Umeclidinium/Vilanterol 200/62.5/25 BLST.W.DEV 1 PUFF INHALE (08:20)
[2025-02-26] MEDS: Albuterol/Iprat 2.5/0.5MG 3 ML AMPUL.NEB INHALE ×3 (08:20→19:03)
[2025-02-26] MEDS: Benzonatate 100 MG CAPSULE PO (10:33)
[2025-02-26] MEDS: Calcium Carbonate 750 MG TAB.CHEW PO (10:33)
[2025-02-26 10:56] LABS: Glucose, Whole Blood 196 mg/dL (60-115)
--- NOTE | 2025-02-26 11:22 | HO.PM.IMPN ---
Subjective Subjective Date of Service: 02/26/25 Interval History: f/u on copd exa and heart failure Overall is doing better Persistent cough but better Physical Exam Vital Signs: Vital Signs: Last Vital Signs Temp 97.0 F 02/26/25 10:58 Pulse 93 02/26/25 10:58 Resp 20 02/26/25 10:58 BP 123/57 L 02/26/25 10:58 Pulse Ox 94 02/26/25 10:58 O2 Del Method Nasal Cannula 02/26/25 10:58 O2 Flow Rate 2 02/26/25 10:58 Oxygen Flow Rate 3 02/23/25 18:50 BMI result Body Mass Index 35.5 Const: Other: General: AO X 3, no acute distress Resp: CTA bilateral, no rales CVS: S1,S2,RRR GI: +BS, NT, no distention Skin: No rash Neuro: motor grossly intact Psych: appropriate affect Objective Data Active Medications Acetaminophen (Acetaminophen 325 Mg Tablet) 650 mg PO Q6H PRN PRN Reason: Pain, Mild 1-3,fever,headache Last Admin: 02/25/25 12:18 Dose: 650 mg Documented By: HO Al Hydroxide/Mg Hydroxide (Magnesium Hydrox/Alum Hydrox 30 Ml Oral.Susp) 30 ml PO Q4H PRN PRN Reason: Heartburn Albuterol/Ipratropium (Albuterol/Iprat 2.5/0.5mg 3 Ml Ampul.Neb) 3 ml INHALE RQ6H WHILE AWAKE [facility] Last Admin: 02/26/25 08:20 Dose: 3 ml Documented By: DOUGLAS Albuterol/Ipratropium (Albuterol/Iprat 2.5/0.5mg 3 Ml Ampul.Neb) 3 ml INHALE Q2H PRN PRN Reason: Shortness of Breath/Wheezing Aspirin (Aspirin Enteric Coated 81 Mg Tablet.) 81 mg PO DAILY [facility] Last Admin: 02/26/25 07:56 Dose: 81 mg Documented By: HO Atorvastatin Calcium (Atorvastatin Calcium 80 Mg Tablet) 80 mg PO BEDTIME [facility] Last Admin: 02/25/25 20:43 Dose: 80 mg Documented By: BUSSIEL Benzonatate (Benzonatate 100 Mg Capsule) 100 mg PO TID PRN PRN Reason: Cough Last Admin: 02/26/25 10:33 Dose: 100 mg Documented By: HO Calcium Carbonate (Calcium Carbonate 750 Mg Tab.Chew) 750 mg PO Q4H PRN PRN Reason: Heartburn Last Admin: 02/26/25 10:33 Dose: 750 mg Documented By: HO Calcium Carbonate (Calcium Oyster Shell Elemental 500 Mg Tablet) 500 mg PO DAILY [facility] Last Admin: 02/26/25 07:56 Dose: 500 mg Documented By: HO Cyanocobalamin (Cyanocobalamin (Vitamin B-12) 1,000 Mcg Tablet) 1,000 mcg PO DAILY [facility] Last Admin: 02/26/25 07:58 Dose: 1,000 mcg Documented By: HO Dextrose (Dextrose 50 % 25 Gm/50 Ml Syringe) 25 gm IVPUSH Q15M PRN; Protocol PRN Reason: per Hypoglycemia Standing Ord. Ezetimibe (Ezetimibe 10 Mg Tablet) 10 mg PO DAILY [facility] Last Admin: 02/26/25 07:56 Dose: 10 mg Documented By: HO Enoxaparin Sodium (Enoxaparin Sodium 40 Mg/0.4 Ml Syringe) 40 mg SUBCUT Q24H [facility] Last Admin: 02/25/25 18:26 Dose: 40 mg Documented By: HO Ergocalciferol (Ergocalciferol (Vitamin D2) 1,250 Mcg Capsule) 1,250 mcg PO Lagunas@0900 [facility] Last Admin: 02/25/25 07:55 Dose: 1,250 mcg Documented By: HO Ferrous Sulfate (Ferrous Sulfate 324 Mg Tablet.) 324 mg PO BID [facility] Last Admin: 02/26/25 07:57 Dose: 324 mg Documented By: HO Fluticasone/Umeclidinium/Vilanterol (Fluticasone/Umeclidinium/Vilanterol 200/62.5/25 Blst.W.Dev) 1 puff INHALE RDAILY [facility] Last Admin: 02/26/25 08:20 Dose: 1 puff Documented By: DOUGLAS Furosemide (Furosemide 40 Mg Tablet) 40 mg PO DAILY [facility]; Protocol Last Admin: 02/26/25 07:57 Dose: 40 mg Documented By: HO Glipizide (Glipizide 5 Mg Tablet) 5 mg PO DAILY@0730 [facility] Last Admin: 02/26/25 07:58 Dose: 5 mg Documented By: HO Glucose (Glucose Gel 15 Gm Gel..Gram.) 15 gm PO Q15M PRN; Protocol PRN Reason: per Hypoglycemia Standing Ord. Guaifenesin (Guaifenesin 100 Mg/5 Ml 5 Ml Liquid) 5 ml PO Q6H PRN PRN Reason: Cough Last Admin: 02/24/25 23:04 Dose: 5 ml Documented By: VIVI Guaifenesin/Codeine Phosphate (Guaifen/Codeine Sf 200/20/10ml 10 Ml Liquid) 5 ml PO Q6H PRN PRN Reason: Cough Last Admin: 02/25/25 12:13 Dose: 5 ml Documented By: HO Insulin Human Lispro (Insulin Lispro 100 Unit/Ml 3 Ml Vial) 0 unit SUBCUT QIDACHS [facility]; Protocol Last Admin: 02/26/25 06:57 Dose: Not Given Documented By: HO Non-Admin Reason: No Insulin Coverage Isosorbide Mononitrate (Isosorbide Mononitrate 30 Mg Tab.Er.24h) 30 mg PO DAILY [facility]; Protocol Last Admin: 02/26/25 07:57 Dose: 30 mg Documented By: HO Magnesium Hydroxide (Milk Of Magnesia 30 Ml Oral.Susp) 30 ml PO DAILY PRN PRN Reason: Constipation Magnesium Oxide (Magnesium Oxide 400 Mg Tablet) 400 mg PO BID [facility] Last Admin: 02/26/25 07:56 Dose: 400 mg Documented By: HO Melatonin (Melatonin 3 Mg Tablet) 6 mg PO BEDTIME PRN PRN Reason: Insomnia Last Admin: 02/25/25 20:43 Dose: 6 mg Documented By: DICKSON Metformin HCl (Metformin Hcl 850 Mg Tablet) 850 mg PO BIDWM [facility] Last Admin: 02/26/25 07:57 Dose: 850 mg Documented By: HO Metoprolol Succinate (Metoprolol Succinate Er 25 Mg Tab.Er.24h) 25 mg PO DAILY [facility]; Protocol Last Admin: 02/26/25 07:56 Dose: 25 mg Documented By: HO.SZOTPAT Nitroglycerin (Nitroglycerin 0.4 Mg Tab.Subl) 0.4 mg SUBLINGUAL Q5M PRN PRN Reason: Chest Pain Non-Formulary Medication (Evolocumab [Repatha Sureclick]) 140 mg SUBCUT Q14D [facility] Ondansetron HCl (Ondansetron Hcl 4 Mg/2 Ml Vial) 4 mg IVPUSH Q8H PRN PRN Reason: Nausea and Vomiting Oxybutynin Chloride (Oxybutynin Chloride Er 5 Mg Tab.Er.24) 10 mg PO DAILY@1200 [facility] Last Admin: 02/25/25 12:13 Dose: 10 mg Documented By: HO Sertraline HCl (Sertraline Hcl 50 Mg Tablet) 50 mg PO BEDTIME [facility] Last Admin: 02/25/25 20:43 Dose: 50 mg Documented By: DICKSON Sodium Chloride (0.9 % Sodium Chloride Flush 3 Ml Syringe) 3 ml IVFLUSH QSHIFT [facility] Last Admin: 02/26/25 07:58 Dose: 3 ml Documented By: HO Theophylline (Theophylline Anhydrous Er 400 Mg Tab.Er.24h) 400 mg PO DAILY [facility] Last Admin: 02/26/25 07:57 Dose: 400 mg Documented By: HO Tramadol HCl (Tramadol Hcl 50 Mg Tablet) 50 mg PO Q12H PRN PRN Reason: severe pain Trazodone HCl (Trazodone Hcl 50 Mg Tablet) 50 mg PO BEDTIME [facility] Last Admin: 02/25/25 20:43 Dose: 50 mg Documented By: DICKSON Labs 02/24/25 06:10 02/26/25 06:59 Labs: Laboratory Results - last 24 hr 02/25/25 02/25/25 02/25/25 11:26 16:19 21:12 Anion Gap Estim Creat Clear Calc Estimated GFR POC Glucose 261 H 130 H 151 H Random Glucose Calcium 02/26/25 02/26/25 02/26/25 06:49 06:59 10:51 Anion Gap 13 Estim Creat Clear Calc 41.3 Estimated GFR 44 POC Glucose 140 H 196 H Random Glucose 149 H Calcium 10.4 H D Microbiology Microbiology Results: Microbiology 02/23/25 16:25 Blood Culture - Preliminary Blood - Venous No growth after 48 hours. 02/23/25 16:25 Blood Culture - Preliminary Blood - Venous No growth after 48 hours. Assessment and Plan (1) Acute respiratory failure with hypoxia: Status: Inactive Plan 74-year-old female with copd/asthma overalp syndrome, chronic O2 use, chf and pulm HTN here with acute hypoxic resp failure likely d/t cop breaker/asthma exacerbation and exacerbation of heart failure Acute hypoxic respiratory failure secondary to asthma/COPD overlap syndrome and heart failure treat underlying chf and copd/asthma titrate O2 to about 94% Copd/asthma overlap syndrome with acute exacerbation continue O2, adjsut to O2 saturation of 92 to 94% bronchodilators by Neb PO Prednisone No indication for Abx at this time CHF, last echo EF 55 to 60% negative negative 6.7 L IV Lasix to PO (She was taken lasix only when legs are swollen) monitor I/O monitor bmp, BNP if not improving, cardiology consult Diabetes mellitus type 2 with hyperglycemia, required iv insulin and additional sub cut insulin yesterday, blood sugar are better but stillhigh Sliding scale, ADA diet continue glipizide and metformin monitor for hyperglycemia in light of steroid CAD/HLD Continue metoprolol, aspirin and statin Mental health continue zoloft, trazadone GERD Continue PPI DVT prophylaxis: lovenox Fulll code P'T recommends STR Quality Stroke Does the patient have a stroke diagnosis?: No VTE Prior VTE?: No VTE Risk Level:: Medical - moderate - high VTE Device Contraindication: Treatment Not Indicated VTE Drug Contraindication: N/A - Med Ordered
[2025-02-26] MEDS: oxyBUTYnin chloride ER 5 MG TAB.ER.24 10 MG PO (11:38)
[2025-02-26] MEDS: Insulin Lispro 100 UNIT/ML 3 ML VIAL SUBCUT ×3 (11:38→20:41)
[2025-02-26] MEDS: predniSONE 20 MG TABLET PO (11:38)
[2025-02-26 12:15] LABS: Glucose, Whole Blood 195 mg/dL (60-115)
[2025-02-26] MEDS: guaiFEN/Codeine SF 200/20/10ML 10 ML LIQUID 5 ML PO (13:11)
[2025-02-26 16:17] LABS: Glucose, Whole Blood 193 mg/dL (60-115)
[2025-02-26 20:36] LABS: Glucose, Whole Blood 222 mg/dL (60-115)
[2025-02-26] MEDS: Sertraline HCL 50 MG TABLET PO (20:40)
[2025-02-26] MEDS: traZODone HCL 50 MG TABLET PO (20:40)
[2025-02-26] MEDS: Acetaminophen 325 MG TABLET 650 MG PO (20:40)
[2025-02-26] MEDS: Atorvastatin Calcium 80 MG TABLET PO (20:40)
[2025-02-26] MEDS: Enoxaparin Sodium 40 MG/0.4 ML SYRINGE SUBCUT (20:41)
[2025-02-26 21:18] LABS: Glucose, Whole Blood 193 mg/dL (60-115)
[2025-02-26] MEDS: Melatonin 3 MG TABLET 6 MG PO (22:05)
[2025-02-27] VITALS (8 sets, daily range): BP systolic 109–128; BP diastolic 55–65; PULSE 70–93; RESP 16–20; TEMP 35.9–36.7; O2SAT 2–98
[2025-02-27 06:55] LABS: Glucose, Whole Blood 137 mg/dL (60-115)
[2025-02-27] MEDS: Fluticasone/Umeclidinium/Vilanterol 200/62.5/25 BLST.W.DEV 1 PUFF INHALE (08:13)
[2025-02-27] MEDS: Albuterol/Iprat 2.5/0.5MG 3 ML AMPUL.NEB INHALE ×2 (08:13→15:27)
[2025-02-27] MEDS: predniSONE 20 MG TABLET PO (09:00)
[2025-02-27] MEDS: Ezetimibe 10 MG TABLET PO (09:00)
[2025-02-27] MEDS: metFORMIN HCl 850 MG TABLET PO ×2 (09:00→16:52)
[2025-02-27] MEDS: Theophylline Anhydrous ER 400 MG TAB.ER.24H PO (09:00)
[2025-02-27] MEDS: Furosemide 40 MG TABLET PO (09:00)
[2025-02-27] MEDS: Calcium Oyster Shell Elemental 500 MG TABLET PO (09:01)
[2025-02-27] MEDS: Ferrous Sulfate 324 MG TABLET.DR PO ×2 (09:01→20:12)
[2025-02-27] MEDS: Magnesium Oxide 400 MG TABLET PO ×2 (09:01→20:11)
[2025-02-27] MEDS: Aspirin Enteric Coated 81 MG TABLET.DR PO (09:01)
[2025-02-27] MEDS: glipiZIDE 5 MG TABLET PO (09:01)
[2025-02-27] MEDS: Metoprolol Succinate ER 25 MG TAB.ER.24H PO (09:01)
[2025-02-27] MEDS: Cyanocobalamin (Vitamin B-12) 1,000 MCG TABLET 1000 MCG PO (09:01)
[2025-02-27] MEDS: Isosorbide Mononitrate 30 MG TAB.ER.24H PO (09:01)
[2025-02-27] MEDS: Benzonatate 100 MG CAPSULE PO ×3 (09:05→20:12)
[2025-02-27] MEDS: guaiFEN/Codeine SF 200/20/10ML 10 ML LIQUID 5 ML PO (09:05)
[2025-02-27] MEDS: 0.9 % Sodium Chloride Flush 3 ML SYRINGE IVFLUSH ×3 (09:06→20:12)
[2025-02-27 10:54] LABS: Glucose, Whole Blood 223 mg/dL (60-115)
[2025-02-27] MEDS: Insulin Lispro 100 UNIT/ML 3 ML VIAL SUBCUT ×3 (11:59→20:11)
[2025-02-27] MEDS: oxyBUTYnin chloride ER 5 MG TAB.ER.24 10 MG PO (12:00)
--- NOTE | 2025-02-27 13:59 | MHC.CM.PN ---
P.T. RECOMMENDING STR, CM MET W/PT TO DISCUSS PREFERENCES, PT REPORTS SHE HAS BEEN TO AND PREFERS [facility], [facility] OFFERING BED AND SUBMITTING FOR AUTH, ANTIC PT WILL DC BY 02/28 ONCE AUTH RECEIVED, CM WILL CONT TO FOLLOW DC NEEDS.
[2025-02-27] MEDS: Milk of Magnesia 30 ML ORAL.SUSP PO (15:18)
[2025-02-27] MEDS: Acetaminophen 325 MG TABLET 650 MG PO (15:18)
[2025-02-27 16:30] LABS: Glucose, Whole Blood 242 mg/dL (60-115)
[2025-02-27] MEDS: traMADoL HCL 50 MG TABLET PO (17:01)
[2025-02-27] MEDS: Enoxaparin Sodium 40 MG/0.4 ML SYRINGE SUBCUT (18:16)
[2025-02-27 19:47] LABS: Glucose, Whole Blood 247 mg/dL (60-115)
[2025-02-27] MEDS: Atorvastatin Calcium 80 MG TABLET PO (20:11)
[2025-02-27] MEDS: Sertraline HCL 50 MG TABLET PO (20:11)
[2025-02-27] MEDS: traZODone HCL 50 MG TABLET PO (20:11)
[2025-02-27] MEDS: Melatonin 3 MG TABLET 6 MG PO (20:12)
[2025-02-27] MEDS: Magnesium Hydrox/Alum Hydrox 30 ML ORAL.SUSP PO (22:58)
[2025-02-28 03:25] VITALS: BP 124/59; PULSE 80; RESP 16; TEMP 36.4; O2SAT 91
[2025-02-28 07:19] VITALS: BP 133/60; PULSE 70; RESP 20; TEMP 36.1; O2SAT 94
[2025-02-28 07:41] VITALS: PULSE 70; RESP 20; O2SAT 94
[2025-02-28] MEDS: Albuterol/Iprat 2.5/0.5MG 3 ML AMPUL.NEB INHALE (07:41)
[2025-02-28] MEDS: Fluticasone/Umeclidinium/Vilanterol 200/62.5/25 BLST.W.DEV 1 PUFF INHALE (07:41)
[2025-02-28 08:00] LABS: Glucose, Whole Blood 97 mg/dL (60-115)
--- NOTE | 2025-02-28 08:28 | P.PNIM_ITS ---
Subjective Subjective Date of Service: 02/28/25 Interval History: f/u on copd exa and heart failure Overall is doing better cough is better awaiting rehab transfer Physical Exam 2 Vital Signs: Vital Signs: Last Vital Signs Temp 97.0 F 02/28/25 07:19 Pulse 70 02/28/25 07:41 Resp 20 02/28/25 07:41 BP 133/60 02/28/25 07:19 Pulse Ox 94 02/28/25 07:19 O2 Del Method Nasal Cannula 02/28/25 07:19 O2 Flow Rate 2 02/28/25 07:19 Oxygen Flow Rate 3 02/23/25 18:50 BMI result Body Mass Index 35.5 Const: Other: General: AO X 3, no acute distress Resp: CTA bilateral, no rales and no wheezes CVS: S1,S2,RRR GI: +BS, NT, no distention Skin: No rash Neuro: motor grossly intact Psych: appropriate affect Objective Data Active Medications Acetaminophen (Acetaminophen 325 Mg Tablet) 650 mg PO Q6H PRN PRN Reason: Pain, Mild 1-3,fever,headache Last Admin: 02/27/25 15:18 Dose: 650 mg Documented By: JENNYFER Al Hydroxide/Mg Hydroxide (Magnesium Hydrox/Alum Hydrox 30 Ml Oral.Susp) 30 ml PO Q4H PRN PRN Reason: Heartburn Albuterol/Ipratropium (Albuterol/Iprat 2.5/0.5mg 3 Ml Ampul.Neb) 3 ml INHALE RQ6H WHILE AWAKE [facility] Last Admin: 02/28/25 07:41 Dose: 3 ml Documented By: JOSE ROBERTO Albuterol/Ipratropium (Albuterol/Iprat 2.5/0.5mg 3 Ml Ampul.Neb) 3 ml INHALE Q2H PRN PRN Reason: Shortness of Breath/Wheezing Aspirin (Aspirin Enteric Coated 81 Mg Tablet.) 81 mg PO DAILY [facility] Last Admin: 02/27/25 09:01 Dose: 81 mg Documented By: JENNYFER Atorvastatin Calcium (Atorvastatin Calcium 80 Mg Tablet) 80 mg PO BEDTIME [facility] Last Admin: 02/27/25 20:11 Dose: 80 mg Documented By: TIENZEB Benzonatate (Benzonatate 100 Mg Capsule) 100 mg PO TID PRN PRN Reason: Cough Last Admin: 02/27/25 20:12 Dose: 100 mg Documented By: TIENZEIvis Calcium Carbonate (Calcium Carbonate 750 Mg Tab.Chew) 750 mg PO Q4H PRN PRN Reason: Heartburn Last Admin: 02/26/25 10:33 Dose: 750 mg Documented By: HO Calcium Carbonate (Calcium Oyster Shell Elemental 500 Mg Tablet) 500 mg PO DAILY [facility] Last Admin: 02/27/25 09:01 Dose: 500 mg Documented By: JENNYFER Cyanocobalamin (Cyanocobalamin (Vitamin B-12) 1,000 Mcg Tablet) 1,000 mcg PO DAILY [facility] Last Admin: 02/27/25 09:01 Dose: 1,000 mcg Documented By: JENNYFER Dextrose (Dextrose 50 % 25 Gm/50 Ml Syringe) 25 gm IVPUSH Q15M PRN; Protocol PRN Reason: per Hypoglycemia Standing Ord. Ezetimibe (Ezetimibe 10 Mg Tablet) 10 mg PO DAILY [facility] Last Admin: 02/27/25 09:00 Dose: 10 mg Documented By: JENNYFER Enoxaparin Sodium (Enoxaparin Sodium 40 Mg/0.4 Ml Syringe) 40 mg SUBCUT Q24H [facility] Last Admin: 02/27/25 18:16 Dose: 40 mg Documented By: JENNYFER Ergocalciferol (Ergocalciferol (Vitamin D2) 1,250 Mcg Capsule) 1,250 mcg PO Lagunas@0900 [facility] Last Admin: 02/25/25 07:55 Dose: 1,250 mcg Documented By: HO Ferrous Sulfate (Ferrous Sulfate 324 Mg Tablet.Dr) 324 mg PO BID [facility] Last Admin: 02/27/25 20:12 Dose: 324 mg Documented By: TIENZEIvis Fluticasone/Umeclidinium/Vilanterol (Fluticasone/Umeclidinium/Vilanterol 200/62.5/25 Blst.W.Dev) 1 puff INHALE RDAILY [facility] Last Admin: 02/28/25 07:41 Dose: 1 puff Documented By: JOSE ROBERTO Furosemide (Furosemide 40 Mg Tablet) 40 mg PO DAILY [facility]; Protocol Last Admin: 02/27/25 09:00 Dose: 40 mg Documented By: JENNYFER Glipizide (Glipizide 5 Mg Tablet) 5 mg PO DAILY@0730 [facility] Last Admin: 02/27/25 09:01 Dose: 5 mg Documented By: JENNYFER Glucose (Glucose Gel 15 Gm Gel..Gram.) 15 gm PO Q15M PRN; Protocol PRN Reason: per Hypoglycemia Standing Ord. Guaifenesin (Guaifenesin 100 Mg/5 Ml 5 Ml Liquid) 5 ml PO Q6H PRN PRN Reason: Cough Last Admin: 02/24/25 23:04 Dose: 5 ml Documented By: VIVI Guaifenesin/Codeine Phosphate (Guaifen/Codeine Sf 200/20/10ml 10 Ml Liquid) 5 ml PO Q6H PRN PRN Reason: Cough Last Admin: 02/27/25 09:05 Dose: 5 ml Documented By: JENNYFER Insulin Human Lispro (Insulin Lispro 100 Unit/Ml 3 Ml Vial) 0 unit SUBCUT [facility]; Protocol Last Admin: 02/27/25 20:11 Dose: 4 unit Documented By: DEEPA Isosorbide Mononitrate (Isosorbide Mononitrate 30 Mg Tab.Er.24h) 30 mg PO DAILY [facility]; Protocol Last Admin: 02/27/25 09:01 Dose: 30 mg Documented By: JENNYFER Magnesium Hydroxide (Milk Of Magnesia 30 Ml Oral.Susp) 30 ml PO DAILY PRN PRN Reason: Constipation Last Admin: 02/27/25 15:18 Dose: 30 ml Documented By: JENNYFER Magnesium Oxide (Magnesium Oxide 400 Mg Tablet) 400 mg PO BID [facility] Last Admin: 02/27/25 20:11 Dose: 400 mg Documented By: DEEPA Melatonin (Melatonin 3 Mg Tablet) 6 mg PO BEDTIME PRN PRN Reason: Insomnia Last Admin: 02/27/25 20:12 Dose: 6 mg Documented By: DEEPA Metformin HCl (Metformin Hcl 850 Mg Tablet) 850 mg PO BIDWM [facility] Last Admin: 02/27/25 16:52 Dose: 850 mg Documented By: JENNYFER Metoprolol Succinate (Metoprolol Succinate Er 25 Mg Tab.Er.24h) 25 mg PO DAILY [facility]; Protocol Last Admin: 02/27/25 09:01 Dose: 25 mg Documented By: JENNYFER Nitroglycerin (Nitroglycerin 0.4 Mg Tab.Subl) 0.4 mg SUBLINGUAL Q5M PRN PRN Reason: Chest Pain Non-Formulary Medication (Evolocumab [Repatha Sureclick]) 140 mg SUBCUT Q14D [facility] Last Admin: 02/26/25 11:57 Dose: 140 mg Documented By: HO Ondansetron HCl (Ondansetron Hcl 4 Mg/2 Ml Vial) 4 mg IVPUSH Q8H PRN PRN Reason: Nausea and Vomiting Oxybutynin Chloride (Oxybutynin Chloride Er 5 Mg Tab.Er.24) 10 mg PO DAILY@1200 [facility] Last Admin: 02/27/25 12:00 Dose: 10 mg Documented By: JENNYFER Prednisone (Prednisone 20 Mg Tablet) 20 mg PO DAILY [facility] Last Admin: 02/27/25 09:00 Dose: 20 mg Documented By: JENNYFER Sertraline HCl (Sertraline Hcl 50 Mg Tablet) 50 mg PO BEDTIME [facility] Last Admin: 02/27/25 20:11 Dose: 50 mg Documented By: DEEPA Sodium Chloride (0.9 % Sodium Chloride Flush 3 Ml Syringe) 3 ml IVFLUSH QSHIFT [facility] Last Admin: 02/27/25 20:12 Dose: 3 ml Documented By: DEEPA Theophylline (Theophylline Anhydrous Er 400 Mg Tab.Er.24h) 400 mg PO DAILY [facility] Last Admin: 02/27/25 09:00 Dose: 400 mg Documented By: JENNYFER Tramadol HCl (Tramadol Hcl 50 Mg Tablet) 50 mg PO Q12H PRN PRN Reason: severe pain Last Admin: 02/27/25 17:01 Dose: 50 mg Documented By: HERMAN Trazodone HCl (Trazodone Hcl 50 Mg Tablet) 50 mg PO BEDTIME [facility] Last Admin: 02/27/25 20:11 Dose: 50 mg Documented By: DEEPA Labs 02/24/25 06:10 02/26/25 06:59 Labs: Laboratory Results - last 24 hr 02/27/25 02/27/25 02/27/25 10:50 16:25 19:43 POC Glucose 223 H 242 H 247 H 02/28/25 07:15 POC Glucose 97 Assessment and Plan (1) Acute respiratory failure with hypoxia: Status: Inactive Plan 74-year-old female with copd/asthma overalp syndrome, chronic O2 use, chf and pulm HTN here with acute hypoxic resp failure 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/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 and exacerbation of heart failure Acute hypoxic respiratory failure secondary to asthma/COPD overlap syndrome and heart failure treat underlying chf and copd/asthma titrate O2 to about 94% Copd/asthma overlap syndrome with acute exacerbation continue O2, adjsut to O2 saturation of 92 to 94% bronchodilators by Neb PO Prednisone, stop after today after 5 days of steroid No indication for Abx at this time CHF, last echo EF 55 to 60% negative negative 10.3L IV Lasix to PO (She was taken lasix only when legs are swollen) monitor I/O monitor bmp, BNP improved so no cardiology consult at this time Diabetes mellitus type 2 with hyperglycemia needing iv insulin, hyperglycemia resolved. Sliding scale, ADA diet continue glipizide and metformin monitor for hyperglycemia in light of steroid CAD/HLD Continue metoprolol, aspirin and statin Mental health continue zoloft, trazadone GERD Continue PPI DVT prophylaxis: lovenox Fulll code P'T recommends STR Quality Stroke Does the patient have a stroke diagnosis?: No VTE Prior VTE?: No VTE Risk Level:: Medical - moderate - high VTE Device Contraindication: Treatment Not Indicated VTE Drug Contraindication: N/A - Med Ordered
--- NOTE | 2025-02-28 08:45 | PM.DS ---
DS: Providers Provider Date of Service: 02/28/25 Date of admission: 02/23/25 17:39 Date of discharge: 02/28/25 Primary care physician: Estrella Brunner MD DS: Diagnosis Discharge Diagnosis (1) Acute respiratory failure with hypoxia: Status: Inactive DS: Summary Hospital Course Hospital Course: admission hpi Chief Complaint: shortness of breath 74 yo F hx CAD, VA, HLD, asthma/COPD on 2L O2 at home, and unspecified CHF who presents with SOB + congestion and cough since wednesday, that is x4 days ago. She has been using her inhalers and not getting relief. Her oxygen saturation was reported to be 70s by EMS, O2 improved to 92 with oxygen at 4 Liters. CXR show pulmonary edema, tropon in is 10, BNP 3366 and has some leg edemal. She doen't have chest pain. ED treatment: IV Lasix, and IV mag. 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 Acute diastolic heart failure was treated initially with IV Laasix and later transitioned back to her home dose of Lasix 40 mg daily. She diuressed negative 10.3 Liter fo fluid and is feeling much. Patient has had poor understanding of her Lasix regimen, only taking Lasix when legs seems swollen rather than daily, she is now instructed to take it daily and limit salt and water intake daily. COPD was treated with bronchodilator by Karel and corticosteroid, initially IV steroid which was causing marked hyperglycemia and was later changed to PO steroid, she is presently without wheezes and has completed 5 days of steroid and will be stopped at dischargd. To continue baseline home oxygen at 2 liters per minutes with O2 88 to 94 %. Outpatient follow up with her research center director for further management of CHF Diabetes mellitus type 2 with hyperglycemia, initially required IV insulin to better control her sugars, this was likely related to initial high dose solumedrol given in the emergency department. Ultimately sugar level improve and she was put back on her home regimen of Glipizide and Metfromin with good blood sugar control, presently fasting Sugar of 97, she was on sliding scale insulin in the hospital but doesn't require this at home. CAD/HLD Continue metoprolol, aspirin and statin Mental health continue zoloft, trazadone GERD Continue PPI Patient is deconditioned from her hospitalization and PT therapy recommends short term rehab which she is agreable to, likely for less than 30 days. Final principal diagnoses: Acute hypoxic respiratory failure COPD exacerbation Acute on chronic diastolic CHF Diabetes with hyperglycemia GERD Time Attestation Discharge Coordination Time (in mins): 45 Quality: Safe Use of Opioids Does Pt have an Active Cancer Diagnosis on the Problem List?: No Quality: Stroke Does the patient have a stroke diagnosis?: No Physical Exam Vital Signs: Vital Signs: Last Vital Signs Temp 97.0 F 02/28/25 07:19 Pulse 70 02/28/25 07:41 Resp 20 02/28/25 07:41 BP 133/60 02/28/25 07:19 Pulse Ox 94 02/28/25 07:19 O2 Del Method Nasal Cannula 02/28/25 07:19 O2 Flow Rate 2 02/28/25 07:19 Oxygen Flow Rate 3 02/23/25 18:50 BMI result Body Mass Index 35.5 DS: Data Data Completed and Pending Labs on day of discharge: Laboratory Results - last 24 hr 02/27/25 02/27/25 02/27/25 10:50 16:25 19:43 POC Glucose 223 H 242 H 247 H 02/28/25 07:15 POC Glucose 97 Preliminary micro results at discharge 02/23/25 16:25 Blood Culture - Preliminary Blood - Venous No growth after 48 hours. 02/23/25 16:25 Blood Culture - Preliminary Blood - Venous No growth after 48 hours. Discharge Plan Discharge Anticipated Discharge Date/Time: 02/28/25 08:46 Patient Disposition: Xfer SNF Discharge Diagnosis: CHF exacerbation, asthma/copd exacerbation Referrals: Bailey Anand [Outside] - 1 Day Referral Note: SHORT TERM REHAB Estrella Brunner MD [Primary Care Provider, Internal Medicine] - 1 Week Bunny Florez MD [Physician, Cardiology] - 1 Week Referral Note: follow up inpatient stay for heart failure Discharge Medications: New insulin lispro [Admelog U-100 Insulin lispro] 100 unit/mL Solution See Protocol subcut QIDACHS Qty: 3 0RF Protocol: Insulin Correction Scale Less than or equal to 110 ---- Give (units): 0 111 to 150 Give (units): 0 151 to 200 Give (units): 2 201 to 250 Give (units): 4 251 to 300 Give (units): 6 301 to 350 Give (units): 8 Greater than 350 Give (units): 10 Call MD if Blood Glucose > : 350 Continued (DME) [facility] [place] See Rx Instructions .MEDSUPPLY Qty: 1 0RF Rx Instructions: Folding Front wheeled walker ibuprofen 600 mg tablet 600 mg PO Q8H PRN (Reason: pain) 10 Days Qty: 20 0RF Trelegy Ellipta 200-62.5-25 mcg blister with device 1 ea PO DAILY Qty: 60 6RF trazodone 50 mg tablet 1 tab PO BEDTIME oxybutynin chloride 10 mg tablet extended release 24hr 1 tab PO DAILY@1200 cyanocobalamin (vitamin B-12) 1,000 mcg tablet 1 tab PO DAILY ferrous sulfate 325 mg (65 mg iron) tablet 1 tab PO BID sertraline 50 mg tablet 1 tab PO BEDTIME atorvastatin 80 mg tablet 80 mg PO BEDTIME pantoprazole 40 mg tablet,delayed release (DR/EC) 40 mg PO BID@0630,1630 calcium carbonate 500 mg calcium (1,250 mg) tablet 1 tab PO DAILY magnesium oxide 400 mg (241.3 mg magnesium) tablet 400 mg PO BID ergocalciferol (vitamin D2) 1,250 mcg (50,000 unit) capsule 1,250 mcg PO [place] metformin 850 mg tablet 850 mg PO BID ipratropium-albuterol 0.5 mg-3 mg(2.5 mg base)/3 mL solution for nebulization 3 ml inhalation Q4H PRN (Reason: wheezing) theophylline 400 mg tablet extended release 24 hr 400 mg PO DAILY isosorbide mononitrate 30 mg tablet extended release 24 hr 30 mg PO DAILY nitroglycerin 0.4 mg tablet, sublingual 0.4 mg sublingual Q5M PRN (Reason: Chest Pain) metoprolol succinate 25 mg tablet extended release 24 hr 25 mg PO DAILY ezetimibe 10 mg tablet 10 mg PO DAILY Combivent Respimat 20-100 mcg/actuation mist 1 puff PO Q4H PRN (Reason: SOB/wheezing) aspirin 81 mg tablet,delayed release (DR/EC) 81 mg PO DAILY glipizide 5 mg tablet 5 mg PO DAILY tramadol 50 mg tablet 50 mg PO Q12H PRN (Reason: severe pain) Repatha SureClick 140 mg/mL pen injector 140 mg subcut Q2W 90 Days Qty: 6 3RF furosemide [Lasix] 20 mg tablet 20 mg PO DAILY PRN (Reason: Heart failure symptoms) Discharge Orders: Discharge Order (Routine); Ordered 02/28/25 Ordered By: Kem Cobb Diet: Diabetic diet Activity on Discharge: As tolerated Stand Alone Forms: Patient Portal Discharge page Print Language: Gibralt[place] Care Plan Goals: recovery from acute exacerbation of heart failure, asthma and copd Health Concerns: heart failure copd/asthma diabetes with hyperglycemia Plan of Treatment: To short term rehab for less than 30 days take all medication, espicially Lasix as directed and not just when leg are swollen Assessment: see above
[2025-02-28] MEDS: Aspirin Enteric Coated 81 MG TABLET.DR PO (08:46)
[2025-02-28] MEDS: Furosemide 40 MG TABLET PO (08:46)
[2025-02-28] MEDS: Ferrous Sulfate 324 MG TABLET.DR PO (08:46)
[2025-02-28] MEDS: Calcium Oyster Shell Elemental 500 MG TABLET PO (08:46)
[2025-02-28] MEDS: metFORMIN HCl 850 MG TABLET PO (08:47)
[2025-02-28] MEDS: Theophylline Anhydrous ER 400 MG TAB.ER.24H PO (08:47)
[2025-02-28] MEDS: Metoprolol Succinate ER 25 MG TAB.ER.24H PO (08:47)
[2025-02-28] MEDS: Isosorbide Mononitrate 30 MG TAB.ER.24H PO (08:47)
[2025-02-28] MEDS: Magnesium Oxide 400 MG TABLET PO (08:47)
[2025-02-28] MEDS: 0.9 % Sodium Chloride Flush 3 ML SYRINGE IVFLUSH (08:47)
[2025-02-28] MEDS: predniSONE 20 MG TABLET PO (08:47)
[2025-02-28] MEDS: glipiZIDE 5 MG TABLET PO (08:47)
[2025-02-28] MEDS: Cyanocobalamin (Vitamin B-12) 1,000 MCG TABLET 1000 MCG PO (08:47)
[2025-02-28] MEDS: Ezetimibe 10 MG TABLET PO (08:47)
--- NOTE | 2025-02-28 10:41 | MHC.CM.PN ---
PT MEDICALLY CLEARED FOR DC TO STR AT [facility], CM CONTACTED PT'S SON LINNEA AT NUMBER ON FILE TO LET HIM KNOW TIME OF TRANSPORT PER PT REQUEST, [facility] FOR TRANSPORT AT 11:30AM.
--- NOTE | 2025-02-28 11:08 | P.CDIM_ITS ---
PROVIDER RESPONSE TEXT: To clarify, the appropriate diagnosis supported by the clinical indicators: Acute on Chronic hypoxic respiratory failure: is QUERY TEXT: PHYSICIAN'S DOCUMENTATION REQUEST Date of Query: 02/27/2025 09:23 AM EDT Patient Name: Deedee Linares Admit Date: 02/23/2025 Dear Kem Cobb MD, A review of the medical record indicates additional documentation may be needed. Please review below and update the documentation accordingly. Clinical Indicators: Progress notes 02/26/25 - 74 year old female wit COPD/Asthma overlap syndrome, Chronic O2 use. COPD on 2L O2. Evaluation for increasing shortness of breath x 4 days. Reports ambulating to bathroom while on 2 L O2 and saw her oxygen drop to 69%. Admit for acute hypoxic respiratory failure. Titrate O2 to about 94% If possible, please further clarify any further specifics to the noted respiratory failure: Acute on Chronic hypoxic respiratory failure possible, probable, etc. Acute hypoxic respiratory failure O2 dependent Other (explain) Clinically unable to determine (explain) Thank you, Nadia Hernandez, CCS, CDIS Use of terms such as suspected, likely, concern for, or probable (associated with a specific diagnosis that is being evaluated, monitored, or treated as if it exists) are acceptable and can be coded in the inpatient setting, when documented at the time of discharge. Please use your independent medical judgment in providing your response. THIS QUERY IS PART OF THE PERMANENT MEDICAL RECORD
--- NOTE | 2025-02-28 11:08 | P.CDIM_ITS ---
PROVIDER RESPONSE TEXT: To clarify, the appropriate diagnosis supported by the clinical indicators: Diastolic: acute on chronic QUERY TEXT: PHYSICIAN'S DOCUMENTATION REQUEST Date of Query: 02/26/2025 12:00 PM EDT Patient Name: Deedee Linares Admit Date: 02/23/2025 Dear Kem Cobb MD, A review of the medical record indicates additional documentation may be needed. Please review below and update the documentation accordingly. Clinical Indicators: Progress notes: CHF, last echo EF 55 to 60% 1+ leg edema, short of breath, dyspnea. IV Lasix to PO Monitor I/O Monitor bmp, BNP Please provide further specificity regarding the most likely type and acuity of CHF you are evaluating, treating, or monitoring. Systolic Please specify if Acute, Chronic, or Acute on chronic, or Unable to determine Diastolic Please specify if Acute, Chronic, or Acute on chronic, or Unable to determine Combined Systolic/Diastolic Please specify if Acute, Chronic, or Acute on chronic, or Unable to determine Other (explain) Clinically unable to determine (explain) Thank you, Nadia Hernandez, CCS, CDIS Use of terms such as suspected, likely, concern for, or probable (associated with a specific diagnosis that is being evaluated, monitored, or treated as if it exists) are acceptable and can be coded in the inpatient setting, when documented at the time of discharge. Please use your independent medical judgment in providing your response. THIS QUERY IS PART OF THE PERMANENT MEDICAL RECORD
== END 2025-02-28 11:30 | disposition skilled nursing facility (03) | DRG 291 ==
LOC: HO.ED 17:37 → HO.EDOVER 17:53 → HO.S3 19:20 → HO.IMC 19:32
PROVIDERS: Physician Assistant Medical; Admitting Provider Internal Medicine; Emergency Provider Emergency Medicine; PCP Student in an Organized Health Care Education/Training Program; Visit Provider Internal Medicine
DX: I50.33 Acute on chronic diastolic (congestive) heart failure (principal); J96.21 Acute and chronic respiratory failure with hypoxia; J44.1 Chronic obstructive pulmonary disease with (acute) exacerbation; J45.901 Unspecified asthma with (acute) exacerbation; I25.10 Atherosclerotic heart disease of native coronary artery without angina pectoris; E78.5 Hyperlipidemia, unspecified; K21.9 Gastro-esophageal reflux disease without esophagitis; E11.65 Type 2 diabetes mellitus with hyperglycemia; Z20.822 Contact with and (suspected) exposure to COVID-19; Z99.81 Dependence on supplemental oxygen; Z87.891 Personal history of nicotine dependence; Z79.4 Long term (current) use of insulin; Z79.51 Long term (current) use of inhaled steroids; Z79.82 Long term (current) use of aspirin; Z79.899 Other long term (current) drug therapy
CPT/HCPCS: 0241U; 36415; 71045; 80048; 80053; 82803; 82947; 83605; 83735; 83880; 84484; 85025; 85027; 87040; 93005; 94640; 97162; 99285; J1650; J1938; J2919; J3475

== ENCOUNTER → 2025-02-23 15:12 | Outpatient (BNV) | payer MEDICARE, SELFPAY | PROVIDERS: Emergency Provider Emergency Medicine; PCP Student in an Organized Health Care Education/Training Program; Visit Provider Radiology Diagnostic Radiology | DX: J84.9 Interstitial pulmonary disease, unspecified (principal) | CPT/HCPCS: 71045 ==

== ENCOUNTER → 2025-02-23 15:37 | Outpatient (BNV) | payer MEDICARE, SELFPAY | PROVIDERS: Admitting Provider Internal Medicine; Emergency Provider Emergency Medicine; PCP Student in an Organized Health Care Education/Training Program; Visit Provider Internal Medicine Cardiovascular Disease | DX: R06.02 Shortness of breath (principal); R09.02 Hypoxemia | CPT/HCPCS: 93010 ==

== ENCOUNTER → 2025-02-23 17:39 | Outpatient (BNV) | payer MEDICARE, SELFPAY | PROVIDERS: Admitting Provider Internal Medicine; Emergency Provider Emergency Medicine; PCP Student in an Organized Health Care Education/Training Program; Visit Provider Internal Medicine | DX: J44.9 Chronic obstructive pulmonary disease, unspecified (principal); I50.9 Heart failure, unspecified; J96.01 Acute respiratory failure with hypoxia | CPT/HCPCS: 99223; 99232; 99239; 99499 ==

== ENCOUNTER 2025-03-30 10:09 | Inpatient (IN) | payer MEDICARE, OTHER, SELFPAY ==
[2025-03-30] VITALS (8 sets, daily range): BP systolic 100–135; BP diastolic 54–65; PULSE 94–103; RESP 16–26; TEMP 36.8–37.4; O2SAT 90–95; BMI 34.2
--- NOTE | ~2025-03-30 | XR_ITS ---
EXAMINATION: XR CHEST CLINICAL INFORMATION: Shortness of breath, rule out pneumonia COMPARISON: February 23, 2025. TECHNIQUE: Frontal view of the chest was obtained. FINDINGS: Pulmonary reticular pattern. Blunting of the costophrenic angles bilaterally. No pneumothorax. Cardiomediastinal silhouette size is normal. Calcified plaque thoracic aorta. Mild multilevel thoracic spondylosis. Degenerative changes in the shoulders. XR/XR chest 1V IMPRESSION: Mild interstitial edema and bilateral small pleural effusions in the correct clinical settings. Superimposed small airway inflammatory process cannot be excluded. Electronically signed by: Juan Antonio Medina MD 03/30/2025 10:48 AM EDT
--- NOTE | 2025-03-30 10:21 | ECG_ITS ---
Test Reason : SOB Blood Pressure : */* mmHG Vent. Rate : 105 BPM Atrial Rate : 105 BPM P-R Int : 142 ms QRS Dur : 80 ms QT Int : 358 ms P-R-T Axes : 48 -48 8 degrees QTcB Int : 473 ms Sinus tachycardia Low voltage QRS Left anterior fascicular block Cannot rule out Anterior infarct (cited on or before 23-Feb-2025) Abnormal ECG When compared with ECG of 23-Feb-2025 15:57, Nonspecific T wave abnormality has replaced inverted T waves in Anterior leads Referred By: Mikey Irene Electronically Signed By: Fabian Larry
--- NOTE | 2025-03-30 10:21 | ED.SOB ---
HPI - SOB/Dyspnea General Chief Complaint: Dyspnea Stated Complaint: RESP DISTRESS,CPAP PER EMS Time Seen by Provider: 03/30/25 10:21 Source: patient Mode of arrival: EMS Limitations: no limitations History of Present Illness ED Provider: Dr. Mikey Irene HPI Narrative: 74-year-old female with a history of diabetes mellitus, hyperlipidemia, coronary artery disease, myocardial infarction, COPD, GERD, depression, anxiety who presents emergency department for evaluation of cough, fever, shortness of breath, dyspnea on exertion times 2-3 days. Patient states she has a cough which is nonproductive. She states she has been wheezing and has been using her nebulizers. She went to an urgent care clinic and was found a have dyspnea with wheezing. She was given a DuoNeb in her O2 saturation dropped to 80%. Paramedics placed the patient on CPAP and transported the patient to the emergency department on a DuoNeb. The CPAP was removed and she was placed on oxygen via nasal cannula with O2 saturation in the 92-94% range. Lung exam revealed diffuse rhonchi with no wheezing. Patient was recently hospitalized from 02/23/2025 until 02/28/2025 with acute respiratory failure with hypoxia with acute diastolic heart failure treated with IV Lasix. Her COPD exacerbation was treated with bronchodilators and IV steroids. The patient was discharged from the hospital on went to a acute care facility and she states she has been home for proximally 1.5 weeks. Patient states she was on antibiotics and finished her antibiotic yesterday. Related Data Home Medications ?Medication ?Instructions ?Recorded ?Confirmed cyanocobalamin (vitamin B-12) 1 tab PO DAILY 08/12/20 02/23/25 1,000 mcg tablet ferrous sulfate 325 mg (65 mg 1 tab PO BID 08/12/20 02/23/25 iron) tablet oxybutynin chloride 10 mg 1 tab PO DAILY@1200 08/12/20 02/23/25 tablet,extended release 24 hr sertraline 50 mg tablet 1 tab PO BEDTIME 08/12/20 02/23/25 trazodone 50 mg tablet 1 tab PO BEDTIME 08/12/20 02/23/25 glipizide 5 mg tablet 5 mg PO DAILY 09/30/21 02/23/25 calcium carbonate 1 tab PO DAILY 10/31/21 02/23/25 tramadol 50 mg tablet 50 mg PO Q12H PRN severe pain 02/10/22 02/23/25 aspirin 81 mg tablet,delayed 81 mg PO DAILY 03/11/22 02/23/25 release atorvastatin 80 mg tablet 80 mg PO BEDTIME 04/06/24 02/23/25 pantoprazole 40 mg tablet,delayed 40 mg PO BID@0630,1630 04/06/24 02/23/25 release ergocalciferol (vitamin D2) 1,250 1,250 mcg PO [place] 05/29/24 02/23/25 mcg (50,000 unit) capsule magnesium oxide 400 mg (241.3 mg 400 mg PO BID 05/29/24 02/23/25 magnesium) tablet furosemide 20 mg tablet (Lasix) 20 mg PO DAILY PRN Heart failure 01/11/25 02/23/25 symptoms ezetimibe 10 mg tablet 10 mg PO DAILY 02/23/25 02/23/25 ipratropium 0.5 mg-albuterol 3 mg 3 ml inhalation Q4H PRN wheezing 02/23/25 02/23/25 (2.5 mg base)/3 mL nebulization soln ipratropium 20 mcg-albuterol 100 1 puff PO Q4H PRN SOB/wheezing 02/23/25 02/23/25 mcg/actuation mist for inhalation (Combivent Respimat) isosorbide mononitrate 30 mg 30 mg PO DAILY 02/23/25 02/23/25 tablet,extended release 24 hr metformin 850 mg tablet 850 mg PO BID 02/23/25 02/23/25 metoprolol succinate 25 mg 25 mg PO DAILY 02/23/25 02/23/25 tablet,extended release 24 hr nitroglycerin 0.4 mg sublingual 0.4 mg sublingual Q5M PRN Chest 02/23/25 02/23/25 tablet Pain theophylline 400 mg 400 mg PO DAILY 02/23/25 02/23/25 tablet,extended release 24 hr Previous Rx's ?Medication ?Instructions ?Recorded juanita #1 ea 10/13/21 ibuprofen 600 mg tablet 600 mg PO Q8H PRN pain 10 days #20 10/25/22 tabs insulin lispro 100 unit/mL See Protocol subcut QIDACHS #3 mL 02/28/25 subcutaneous solution (Admelog U-100 Insulin lispro) fluticasone fur. 200 mcg-umeclid 1 ea PO DAILY #60 ea 03/14/25 62.5 mcg-vilant 25 mcg inhalat.powder (Trelegy Ellipta) evolocumab 140 mg/mL subcutaneous 140 mg subcut Q2W #6 mL 03/30/25 pen injector (Replee SureMarkick) Allergies Allergy/AdvReac Type Severity Reaction Status Date / Time amoxicillin Allergy Difficulty Verified 03/30/25 10:30 Breathing levofloxacin (From Levaquin) AdvReac Intermediate Muscle Pain Verified 03/30/25 10:30 Pain Med Sensitivity Allergy Unknown none Uncoded 02/23/25 15:08 [facility] Past Medical History Medical History Supplemental oxygen dependent Personal history of nicotine dependence Asthma-COPD overlap syndrome Pulmonary hypertension Acute exacerbation of congestive heart failure Acute respiratory failure with hypoxia Pneumonia Hyperlipidemia MRSA (methicillin resistant Staphylococcus aureus) Anxiety and depression History of blood transfusion Myocardial infarct Diarrhea Arthritis Diabetes GERD (gastroesophageal reflux disease) Coronary artery disease Surgical History Hx of colonoscopy Hx of tonsillectomy Hx of cholecystectomy H/O: hysterectomy History of total right knee replacement (TKR) History of cardiac catheterization Family History Family History Father Colon cancer Social History Social History Household Members: Children Housing: Apartment Are you a primary respiratory care instructor to a significant other at home: No Do you presently have visiting nurse or other home services: Yes Unable to assess alcohol history related to: Unable to respond Alcohol intake: unknown Patient Tobacco Use Status: Former Tobacco user Tobacco use type: Cigarette Years Smoked: 40 Second Hand Smoke Exposure: No Advance Directives: Yes Advance Directives on File: Yes Advance Directives Date on File: 12/25/21 service: No Current occupational status: retired Physical Exam Vital Signs: Vital Signs: Last Vital Signs Temp 99.4 F 03/30/25 14:52 Pulse 101 H 03/30/25 15:19 Resp 20 03/30/25 15:19 BP 131/54 L 03/30/25 14:52 Pulse Ox 90 L 03/30/25 14:52 O2 Del Method Nasal Cannula 03/30/25 14:52 O2 Flow Rate 2 03/30/25 14:52 Oxygen Flow Rate 8 03/30/25 10:29 BMI result Body Mass Index 34.2 Medications Administered Discontinued Medications Generic Name Dose Route Start Last Admin Trade Name Didi PRN Reason Stop Dose Admin Levalbuterol HCl 2.5 mg/ 0 mg 03/30/25 11:08 03/30/25 11:11 Ipratropium [place] 0.5 mg INHALE 03/30/25 11:09 1 dose ONCE ONE Administration Levalbuterol HCl 2.5 mg/ 0 mg 03/30/25 15:15 03/30/25 15:17 Ipratropium [place] 0.5 mg INHALE 03/30/25 15:16 1 dose ONCE ONE Administration Methylprednisolone Sodium Succinate 125 mg 03/30/25 10:21 03/30/25 10:45 Methylprednisolone Sod Succ 125 Mg/2 Ml Vial IVPUSH 03/30/25 10:22 125 mg ONCE ONE Administration Medical Decision Making Medical Decision Making [facility] Narrative: 74-year-old female with a history of diabetes mellitus, hyperlipidemia, coronary artery disease, myocardial infarction, COPD, GERD, depression, anxiety who presents emergency department for evaluation of cough, fever, shortness of breath, dyspnea on exertion times 2-3 days. Patient states she has a cough which is nonproductive. She states she has been wheezing and has been using her nebulizers. She went to an urgent care clinic and was found a have dyspnea with wheezing. She was given a DuoNeb in her O2 saturation dropped to 80%. Paramedics placed the patient on CPAP and transported the patient to the emergency department on a DuoNeb. The CPAP was removed and she was placed on oxygen via nasal cannula with O2 saturation in the 92-94% range. Lung exam revealed diffuse rhonchi with no wheezing. Differential diagnosis: ?Includes but is not limited to Course: 15:41 My independent interpretation patient's laboratory evaluation as follows: WBC was normal 10,800. Normocytic anemia with an H&H of 10 and 30.6-chronic. VBG revealed an elevated pH of 7.52 with a normal pCO2 of 33 and a slightly elevated bicarb at 27. Glucose elevated 159. Magnesium low 1.2. BNP normal 41. Troponin was detectable but not elevated at 7.7. COVID-19, influenza and RSV tests were negative. Patient's chest x-ray did not reveal any obvious pneumonia. Given her negative BNP I do not think that she has CHF despite having bilateral small pleural effusions which to me your unchanged from the previous x-ray. At this time I believe that the patient has a COPD flare-up with no infectious source. Patient received 2 DuoNebs in route to the hospital and in the emergency department she has been treated with Xopenex 5 mg and ipratropium 0.5 mg x 2 nebulizers. Patient was also treated with Solu-Medrol 125 mg IV. Patient will need to be admitted for further management of her COPD. I did discuss admission with the covering hospitalist, Dr. Javier over tiger text. Admission/Observation Consideration of admission/observation: Escalation of care including admission/observation considered (Yes) Consult Healthcare Provider Management of the patient was discussed with: Hospitalist (Dr. Javier) Lab Data MDM Lab Attestation statement: I reviewed the patient's lab results. 03/30/25 10:27 03/30/25 10:27 Labs: Lab Results 03/30/25 03/30/25 Range/Units 10:27 10:34 WBC 10.8 (4.8-10.8) X10*3/uL RBC 3.65 L (4.20-5.50) X10*6/uL Hgb 10.0 L (12.0-16.0) g/dl Hct 30.6 L (37.0-47.0) % MCV 83.8 (80.0-98.0) fL MCH 27.4 (27.0-33.0) pg MCHC 32.7 (31.0-35.0) g/dl RDW 14.9 (11.0-16.0) % Plt Count 228 (160-400) X10*3/uL MPV 9.3 L (9.4-12.3) fL Immature Gran % (Auto) 0.9 H (0.0-0.4) % Neut % (Auto) 81.8 H (45-73) % Lymph % (Auto) 10.4 L (20-40) % [place] % (Auto) 6.6 (2-11) % Eos % (Auto) 0.0 (0-4) % Baso % (Auto) 0.3 (0-2) % Lymph # (Auto) 1.1 L (1.2-4.9) X10*3/uL [place] # (Auto) 0.7 (0.1-1.2) X10*3/uL Eos # (Auto) 0.0 (0.0-0.4) X10*3/uL Baso # (Auto) 0.0 (0.0-0.2) X10*3/uL Abs Immat Gran (auto) 0.10 H (0.00-0.03) X10*3/uL Absolute Neuts (auto) 8.8 H (2.0-8.3) x10*3/uL Absolute Nucleated RBC 0.000 (0.0-0.012) X10*3/uL Nucleated RBC % (auto) 0.0 (0.0-0.2) /100WBC Hold Blue Top SEE NOTE VBG pH 7.52 H (7.32-7.43) VBG pCO2 33 mmHg VBG pO2 63 mmHg VBG HCO3 27 H (22-26) mmol/L VBG O2 Saturation 92.0 % VBG Base Excess 5.1 mmol/L Sodium 139 (135-145) mmol/L Potassium 3.5 (3.3-5.1) mmol/L Chloride 104 (96-108) mmol/L Carbon Dioxide 25 (22-29) mmol/L Anion Gap 14 (12-20) BUN 14 (9-16) mg/dL Creatinine 0.83 (0.5-1.4) mg/dL Estim Creat Clear Calc 58.6 Estimated GFR > 60 Random Glucose 159 H (60-115) mg/dL Lactic Acid 1.4 (0.5-2.0) mmol/L Calcium 9.0 D (8.4-10.2) mg/dL Magnesium 1.2 L* (1.6-2.6) mg/dL Total Bilirubin 0.6 (0.0-1.0) mg/dL AST 20 (5-31) U/L ALT < 6 (0-31) U/L Alkaline Phosphatase 113 (39-117) U/L Troponin I High Sens 7.7 D (<3.5-17.0) ng/L B-Natriuretic Peptide 41 (<100) pg/mL Total Protein 6.3 L (6.5-8.0) g/dL Albumin 3.6 (3.5-5.0) g/dL Lipase 23 (8-78) U/L Influenza Type A (PCR) NEGATIVE (Negative) Influenza Type B (PCR) NEGATIVE (Negative) RSV RNA Qual (PCR) NEGATIVE (Negative) SARS-CoV-2 RNA (RT-PCR) NEGATIVE (Negative) Independent Interpretation I performed an independent interpretation of an: EKG and Plain X-Ray Interpretation: My independent interpretation of the patient's one-view chest x-ray is as follows: Increased interstitial infiltrates at the bases, small bilateral pleural effusions, compared to chest x-ray dated 02/23/2025 no significant change. My independent interpretation patient's 12 EKG done on 03/30/2025 at 10:37 hours is as follows: Sinus tachycardia with a rate of 105, normal [place] interval, QRS duration QTC interval, no ST segment elevation, no ST segment depression, no significant T-wave abnormalities, poor R-wave progression V1 through V3. Compared to EKG dated 02/23/2025 no significant change. Radiology Impression Discussion of test interpretation with radiology: I have reviewed the radiologist's reading. Radiologist Impression: XR chest 1V IMPRESSION: Mild interstitial edema and bilateral small pleural effusions in the correct clinical settings. Superimposed small airway inflammatory process cannot be excluded. Electronically signed by: Juan Antonio Medina MD 03/30/2025 10:48 AM Independent Historian Clinical information obtained from an independent historian. History obtained from or confirmed by: Other (Daughter and son) External Record Review External record reviewed: Inpatient record Chronic Conditions Patient?s care impacted by: Other (COPD) Critical Care Time Critical Care Time Critical Care Time: Yes Total Critical Care Time: 35 Attestation: Critical Care: The patient was critically ill with a high probability of imminent or life threatening deterioration. I spent greater than 30 minutes of discontinuous time evaluating the patient,delivering critical care at the bedside, discussing and evaluating pertinent data with consultants. Critical care time does not include time spent performing separately billable procedures or teaching. Total time spent performing critical care was minutes. Discharge Plan Discharge Patient Disposition: Admitted As Inpatient Print Language: Irish
--- NOTE | 2025-03-30 10:27 | PC.RT ---
Pt came in via EMS on CPAP from urgent care. RT took pt off CPAP and placed on NC. Pt SATs 91% on 8L [place]. Pt does not have increased WOB, RR 20, HR 110. Pt was given two duonebs in route with improvement in wheezing per EMS. Pt has mild wheezing in the bases with rhonchi throughout. Per MD, txs held at this time due to tx en route. Will titrate O2 as tolerated.
[2025-03-30 10:34] LABS: MANUAL DIFF FLAG NO
[2025-03-30 10:36] LABS: Hematocrit 30.6 % (37.0-47.0); Hemoglobin 10.0 g/dl (12.0-16.0); Imm Gran Abs Auto 0.10 X10*3/uL (0.00-0.03); Imm Gran Pct Auto 0.9 % (0.0-0.4); Lymphocytes Absolute Auto 1.1 X10*3/uL (1.2-4.9); Mean Corpuscular HGB Conc 32.7 g/dl (31.0-35.0); Mean Corpuscular Hemoglobin 27.4 pg (27.0-33.0); Mean Corpuscular Volume 83.8 fL (80.0-98.0); NRBC Abs Auto 0.000 X10*3/uL (0.0-0.012); NRBC Pct Auto 0.0 /100WBC (0.0-0.2); Platelet Count 228 X10*3/uL (160-400); Red Blood Count 3.65 X10*6/uL (4.20-5.50); White Blood Count 10.8 X10*3/uL (4.8-10.8)
[2025-03-30 10:37] LABS: VBG HCO3 27 mmol/L (22-26); VBG O2 % Saturation 92.0 %
[2025-03-30 10:38] LABS: Venous Blood Gas Refer to POC result
[2025-03-30 10:52] LABS: Alanine Aminotransferase < 6 U/L (0-31); Albumin Level 3.6 g/dL (3.5-5.0); Alkaline Phosphatase 113 U/L (39-117); Anion Gap 14 (12-20); Aspartate Amino Transferase 20 U/L (5-31); Blood Urea Nitrogen 14 mg/dL (9-16); Calcium 9.0 mg/dL (8.4-10.2); Carbon Dioxide 25 mmol/L (22-29); Chloride 104 mmol/L (96-108); Creatinine Clr Calc Pharmacy 58.6; Estimated Glomerular Filt Rate > 60; Lipase 23 U/L (8-78); Potassium 3.5 mmol/L (3.3-5.1); Sodium 139 mmol/L (135-145); Total Protein 6.3 g/dL (6.5-8.0)
--- OUTSIDE RECORDS SUMMARY | 2025-03-30 10:52 | XMS_ITS | Encounter Summary ---
Author Organization [facility] Address [address] [facility] [address] [place] [address] Phone Care Team Providers Care Pastry Cook Helper Name Role Phone Unavailable Primary Care Provider Unavailabl e Reason for Visit * Reason Comments Med Refill Encounter Details Date Type Department Care Team (Late st Contact Info) Description 11/16/2024 Refill [facility] [address] [place] [address] [place] [id number] Alf Mendenhall MD [address] [facility] [address] [place] [id number] Social History Tobacco Use Types Packs/Day Years [...]
--- OUTSIDE RECORDS SUMMARY | 2025-03-30 10:52 | XMS_ITS | Encounter Summary ---
Author Organization [employer] Address [address] [address] [place] [address] Care Team Providers Care Base Loader Name Role Phone Estrella Brunner MD Primary Care Provider [phone] Reason for Visit * Reason Onset Date Comments callback request 07/11/2024 Encounter Details Date Type Department Care Team ([facility] st Contact Info) Description 07/11/2024 Telephone [facility] [address] [place] [address] Estrella Brunner MD [address] [place], [place] [phone] callback request Social History Tobacco Use Types Packs/Day Years Used Date Smoking Tobacco: Former Cigarettes Passive Smoke Exposure: Past Smokeless Tobacco: Never Depression Answer Date Recorded Patient Health Questionnaire-9 Score 1 04/29/2023 Housing Stability Answer Date Recorded What is your housing situation today? I have shelliyudy ahuja 06/21/[address] you [...] documented in this encounter Plan of Treatment Upcoming Encounters Date Type Department Care Team (Late st Contact Info) Description 07/12/2025 10:00 AM EST Office Visit [facility] [address] [place] [address] Mary Kate Kerr, OD [address] [place] [address] documented as of this encounter Visit Diagnoses Not on filedocumented in this encounter Additional Health Concerns Assessment Noted Time PHQ-9 Depression Total Score: 1 04/29/20 23 10:40 AM EDT documented as of this encounter Care Teams Base Loader Relationship Specialty Start Date End Date Estrella Brunner MD [address] [place] [address] PCP - General Family [facility] documented as of this encounter
[2025-03-30 10:53] LABS: Magnesium 1.2 mg/dL (1.6-2.6)
[2025-03-30 10:55] LABS: B Type Natriuretic Peptide 41 pg/mL (<100)
[2025-03-30 10:56] LABS: Troponin-I High Sensitivity 7.7 ng/L (<3.5-17.0)
[2025-03-30] MEDS: levalbuterol HCL 2.5 MG, Ipratropium Bromide 0.5 MG INHALE ×2 (11:11→15:17)
[2025-03-30 11:16] LABS: Resp Syncy Virus RNA Qual PCR NEGATIVE (Negative); SARS COV2 PCR INHOUSE NEGATIVE (Negative)
--- NOTE | 2025-03-30 12:33 | PC.NURSE ---
patient able to be titrated down between 3-4L nasal cannula. resting quietly in room, endorses increased work of breathing however continues to speak in full clear sentences. call [facility] within reach, awaiting dispo
--- NOTE | 2025-03-30 17:00 | PM.IMHP ---
History of Present Illness Date of Service: 03/30/25 Chief Complaint: Worsening shortness of breath 74-year-old female with history of coronary artery disease status post [place], asthma COPD overlap syndrome on 2 L of oxygen at home, diabetes type 2 and a history of unspecified CHF presents with worsening shortness of breath over the last 2 weeks. Of note patient was admitted for same 02/2025 through 02/28/2025 and recently discharged from [facility] approximately 2 weeks ago. States over the. Over the last 2 weeks of breathing has gotten progressively worse and is not responding to home therapies. Patient states her breathing got to such as state that she called EMS. EN route patient was given DuoNeb with sats dropping to 80%. Patient placed on CPAP with improvement in oxygenation to the 92-94 range. In the emergency room she received a DuoNeb, IV steroids supplemental O2 however it was not tolerating nasal O2. Admission requested for failure of outpatient therapies Review of Systems Review of Systems: Denies chest pain Admits to shortness of breath with minimal movement Denies nausea vomiting diarrhea Denies fever chills PMFSH Medical History CHF (congestive heart failure) Supplemental oxygen dependent Personal history of nicotine dependence Asthma-COPD overlap syndrome Pulmonary hypertension Acute exacerbation of congestive heart failure Acute respiratory failure with hypoxia Pneumonia Hyperlipidemia MRSA (methicillin resistant Staphylococcus aureus) Anxiety and depression History of blood transfusion Myocardial infarct Diarrhea Arthritis Diabetes GERD (gastroesophageal reflux disease) Coronary artery disease Family History Father Colon cancer Surgical History Hx of colonoscopy Hx of tonsillectomy Hx of cholecystectomy H/O: hysterectomy History of total right knee replacement (TKR) History of cardiac catheterization Social History Household Members: Children Housing: Apartment Are you a primary animal caretaker to a significant other at home: No Do you presently have visiting nurse or other home services: Yes Unable to assess alcohol history related to: Unable to respond Alcohol intake: unknown Patient Tobacco Use Status: Former Tobacco user Tobacco use type: Cigarette Years Smoked: 40 Second Hand Smoke Exposure: No Advance Directives: Yes Advance Directives on File: Yes Advance Directives Date on File: 12/25/21 service: No Current occupational status: retired Meds Allergies Allergy/AdvReac Type Severity Reaction Status Date / Time amoxicillin Allergy Difficulty Verified 03/30/25 10:30 Breathing levofloxacin (From Levaquin) AdvReac Intermediate Muscle Pain Verified 03/30/25 10:30 Pain Med Sensitivity Allergy Unknown none Uncoded 02/23/25 15:08 Active Medications: Current Medications Acetaminophen (Acetaminophen 325 Mg Tablet) 650 mg PO Q6H PRN PRN Reason: Pain, Mild 1-3,fever,headache Albuterol/Ipratropium (Albuterol/Iprat 2.5/0.5mg 3 Ml Ampul.Neb) 3 ml INHALE RQ4H WHILE AWAKE [facility] Calcium Carbonate (Calcium Carbonate 750 Mg Tab.Chew) 750 mg PO Q4H PRN PRN Reason: Heartburn Dextrose (Dextrose 50 % 25 Gm/50 Ml Syringe) 25 gm IVPUSH Q15M PRN; Protocol PRN Reason: per Hypoglycemia Standing Ord. Enoxaparin Sodium (Enoxaparin Sodium 40 Mg/0.4 Ml Syringe) 40 mg SUBCUT Q24H [facility] Glucose (Glucose Gel 15 Gm Gel..Gram.) 15 gm PO Q15M PRN; Protocol PRN Reason: per Hypoglycemia Standing Ord. Insulin Human Lispro (Insulin Lispro 100 Unit/Ml 3 Ml Vial) 0 unit SUBCUT QIDACHS [facility]; Protocol Magnesium Hydroxide (Milk Of Magnesia 30 Ml Oral.Susp) 30 ml PO DAILY PRN PRN Reason: Constipation Melatonin (Melatonin 3 Mg Tablet) 6 mg PO BEDTIME PRN PRN Reason: Insomnia Methylprednisolone Sodium Succinate (Methylprednisolone Sod Succ 125 Mg/2 Ml Vial) 60 mg IVPUSH Q6H [facility] Ondansetron HCl (Ondansetron Hcl 4 Mg/2 Ml Vial) 4 mg IVPUSH Q8H PRN PRN Reason: Nausea and Vomiting Sodium Chloride (0.9 % Sodium Chloride Flush 3 Ml Syringe) 3 ml IVFLUSH QSHIFT [facility] Home Medications ?Medication ?Instructions ?Recorded ?Confirmed ?Last Taken ?Type cyanocobalamin (vitamin B-12) 1 tab PO DAILY 08/12/20 02/23/25 02/23/25 History 1,000 mcg tablet (Vitamin B-12) ferrous sulfate 325 mg (65 mg 1 tab PO BID 08/12/20 02/23/25 02/23/25 History iron) tablet (Iron (ferrous sulfate)) oxybutynin chloride 10 mg 1 tab PO DAILY@1200 08/12/20 02/23/25 02/23/25 History tablet,extended release 24 hr sertraline 50 mg tablet 1 tab PO BEDTIME 08/12/20 02/23/25 02/22/25 History trazodone 50 mg tablet 1 tab PO BEDTIME 08/12/20 02/23/25 02/22/25 History glipizide 5 mg tablet 5 mg PO DAILY 09/30/21 02/23/25 02/23/25 History calcium carbonate 1 tab PO DAILY 10/31/21 02/23/25 02/23/25 History tramadol 50 mg tablet 50 mg PO Q12H PRN severe pain 02/10/22 02/23/25 Unknown History aspirin 81 mg tablet,delayed 81 mg PO DAILY 03/11/22 02/23/25 02/23/25 History release atorvastatin 80 mg tablet 80 mg PO BEDTIME 04/06/24 02/23/25 02/22/25 History pantoprazole 40 mg tablet,delayed 40 mg PO BID@0630,1630 04/06/24 02/23/25 02/23/25 History release ergocalciferol (vitamin D2) 1,250 1,250 mcg PO [place] 05/29/24 02/23/25 02/18/25 History mcg (50,000 unit) capsule magnesium oxide 400 mg (241.3 mg 400 mg PO BID 05/29/24 02/23/25 02/23/25 History magnesium) tablet furosemide 20 mg tablet (Lasix) 20 mg PO DAILY PRN Heart failure 01/11/25 02/23/25 Unknown History symptoms ezetimibe 10 mg tablet 10 mg PO DAILY 02/23/25 02/23/25 02/23/25 History ipratropium 0.5 mg-albuterol 3 mg 3 ml inhalation Q4H PRN wheezing 02/23/25 02/23/25 Unknown History (2.5 mg base)/3 mL nebulization soln ipratropium 20 mcg-albuterol 100 1 puff PO Q4H PRN SOB/wheezing 02/23/25 02/23/25 Unknown History mcg/actuation mist for inhalation (Combivent Respimat) isosorbide mononitrate 30 mg 30 mg PO DAILY 02/23/25 02/23/25 02/23/25 History tablet,extended release 24 hr metformin 850 mg tablet 850 mg PO BID 02/23/25 02/23/25 02/23/25 History metoprolol succinate 25 mg 25 mg PO DAILY 02/23/25 02/23/25 02/23/25 History tablet,extended release 24 hr nitroglycerin 0.4 mg sublingual 0.4 mg sublingual Q5M PRN Chest 02/23/25 02/23/25 Unknown History tablet Pain theophylline 400 mg 400 mg PO DAILY 02/23/25 02/23/25 02/23/25 History tablet,extended release 24 hr Physical Exam Vital Signs and Narrative: Vital Signs: Last Vital Signs Temp 99.4 F 03/30/25 14:52 Pulse 101 H 03/30/25 15:19 Resp 20 03/30/25 15:19 BP 131/54 L 03/30/25 14:52 Pulse Ox 90 L 03/30/25 14:52 O2 Del Method Nasal Cannula 03/30/25 14:52 O2 Flow Rate 2 03/30/25 14:52 Oxygen Flow Rate 8 03/30/25 10:29 BMI result Body Mass Index 34.2 Const: Other: Awake alert oriented x3 able to speak in short sentences Resp: Other: Diminished at bases with scattered expiratory wheezes throughout. Cardio: Other: No S4; positive S1-S2; no S3 murmurs rubs or gallops GI: Other: Soft nontender nondistended normoactive bowel sounds Extrem: Other: No edema bilaterally Results Labs 03/30/25 10:27 03/30/25 10:27 Labs: Laboratory Results - last 24 hr 03/30/25 03/30/25 10:27 10:34 MCV 83.8 MCH 27.4 MCHC 32.7 RDW 14.9 Plt Count 228 MPV 9.3 L Immature Gran % (Auto) 0.9 H Neut % (Auto) 81.8 H Lymph % (Auto) 10.4 L [place] % (Auto) 6.6 Eos % (Auto) 0.0 Baso % (Auto) 0.3 Lymph # (Auto) 1.1 L [place] # (Auto) 0.7 Eos # (Auto) 0.0 Baso # (Auto) 0.0 Abs Immat Gran (auto) 0.10 H Absolute Neuts (auto) 8.8 H Absolute Nucleated RBC 0.000 Nucleated RBC % (auto) 0.0 Hold Blue Top SEE NOTE VBG pH 7.52 H VBG pCO2 33 VBG pO2 63 VBG HCO3 27 H VBG O2 Saturation 92.0 VBG Base Excess 5.1 Anion Gap 14 Estim Creat Clear Calc 58.6 Estimated GFR > 60 Random Glucose 159 H Lactic Acid 1.4 Calcium 9.0 D Magnesium 1.2 L* Total Bilirubin 0.6 AST 20 ALT < 6 Alkaline Phosphatase 113 B-Natriuretic Peptide 41 Total Protein 6.3 L Albumin 3.6 Lipase 23 Influenza Type A (PCR) NEGATIVE Influenza Type B (PCR) NEGATIVE RSV RNA Qual (PCR) NEGATIVE SARS-CoV-2 RNA (RT-PCR) NEGATIVE Imaging Radiologist's Impressions: Impressions Chest X-Ray 03/30/25 10:30 IMPRESSION: Mild interstitial edema and bilateral small pleural effusions in the correct clinical settings. Superimposed small airway inflammatory process cannot be excluded. Electronically signed by: Juan Antonio Medina MD 03/30/2025 10:48 AM EDT RP Assessment and Plan (1) Acute exacerbation of chronic obstructive pulmonary disease (COPD): Status: Acute (2) Coronary artery disease: Qualifiers: Coronary Disease-Associated Artery/Lesion type: unspecified vessel or lesion type [place] vs. transplanted heart: unspecified whether [place] or transplanted heart Associated angina: without angina Qualified Code(s): I25.10 - Atherosclerotic heart disease of [place] coronary artery without angina pectoris Status: Acute Plan 74-year-old female with a history of diabetes mellitus, hyperlipidemia, coronary artery disease, myocardial infarction, COPD, GERD, depression, anxiety who presents emergency department for evaluation of cough, fever, shortness of breath, dyspnea on exertion times 2-3 days. Patient states she has a cough which is nonproductive. She states she has been wheezing and has been using her nebulizers. Was transferred from urgent care to ER requiring CPAP on route. Responded to therapies in his now satisfactory oxygenation on nasal cannula 1. COPD exacerbation (no sputum) -pulse dose methylprednisolone -recently completed 2 courses of p.o. antibiotics; given no sputum production we will hold off on further antibiotics at this time -DuoNebs q.4 hours while awake -titrate O2 to maintain sats greater than or equal to 92% 2. Diabetes type 2 -continue metformin at outpatient dosing -lispro correctional scale -2000 calorie ADA diet -adjust therapies as indicated 3. Coronary artery disease -stable and well compensated -continue outpatient therapies Full code Lovenox Patient will require at least 2 midnights going forward of inpatient stay to treat COPD exacerbation with IV steroids and DuoNeb therapies that have failed outpatient therapies. This can not be achieved a lesser acute setting Quality Stroke Does the patient have a stroke diagnosis?: No VTE Prior VTE?: No VTE Risk Level:: Medical - moderate - high VTE Device Contraindication: Treatment Not Indicated VTE Drug Contraindication: N/A - Med Ordered
[2025-03-30 17:11] LABS: Appearance Urine Clear; Glucose Urine UA >=1000 mg/dL (Negative); PH 5.5 (5.0-9.0); Specific Gravity - Urine 1.025 (1.005-1.025); UMIC TRIGGER UACC YES
--- NOTE | 2025-03-30 18:51 | PHA.MEDREC ---
Addendum entered by Ifeanyi Forde [facility] 03/30/25 19:50: MED REC CHECKED BY [facility] Original Note: Pharmacy Consult ? Medication Reconciliation Pharmacy has completed the medication reconciliation. Got list from [facility] [place] and spoke with pt to confirm list is up to date. Pt states she is not taking Glipizide as of 02/28. Pt confirmed the Repatha once every 14 day and Vitamin D2 once a week on Sundays and pt confirmed she took them both this past Sunday 03/25. Pt confirmed she is taking Furosemide 20mg tab as needed for fluid retention. Pt is not taking any Insulin; despite confirming she was getting some from [facility].
[2025-03-30 21:18] LABS: Glucose, Whole Blood 446 mg/dL (60-115)
[2025-03-30] MEDS: 0.9 % Sodium Chloride Flush 3 ML SYRINGE IVFLUSH (21:57)
[2025-03-31] VITALS (8 sets, daily range): BP systolic 118–147; BP diastolic 56–66; PULSE 73–86; RESP 16–24; TEMP 36.4–36.8; O2SAT 93–98
[2025-03-31 06:59] LABS: MANUAL DIFF FLAG NO
[2025-03-31 07:13] LABS: Hematocrit 29.3 % (37.0-47.0); Hemoglobin 9.4 g/dl (12.0-16.0); Imm Gran Abs Auto 0.10 X10*3/uL (0.00-0.03); Imm Gran Pct Auto 0.9 % (0.0-0.4); Lymphocytes Absolute Auto 1.0 X10*3/uL (1.2-4.9); Mean Corpuscular HGB Conc 32.1 g/dl (31.0-35.0); Mean Corpuscular Hemoglobin 27.2 pg (27.0-33.0); Mean Corpuscular Volume 84.9 fL (80.0-98.0); NRBC Abs Auto 0.000 X10*3/uL (0.0-0.012); NRBC Pct Auto 0.0 /100WBC (0.0-0.2); Platelet Count 239 X10*3/uL (160-400); Red Blood Count 3.45 X10*6/uL (4.20-5.50); White Blood Count 11.0 X10*3/uL (4.8-10.8)
[2025-03-31 07:22] LABS: Alanine Aminotransferase 14 U/L (0-31); Albumin Level 3.6 g/dL (3.5-5.0); Alkaline Phosphatase 99 U/L (39-117); Anion Gap 14 (12-20); Aspartate Amino Transferase 24 U/L (5-31); Blood Urea Nitrogen 19 mg/dL (9-16); Calcium 9.3 mg/dL (8.4-10.2); Carbon Dioxide 26 mmol/L (22-29); Chloride 106 mmol/L (96-108); Creatinine Clr Calc Pharmacy 57.9; Estimated Glomerular Filt Rate > 60; Potassium 4.1 mmol/L (3.3-5.1); Sodium 142 mmol/L (135-145); Total Protein 6.0 g/dL (6.5-8.0)
[2025-03-31 07:41] LABS: Glucose, Whole Blood 173 mg/dL (60-115)
[2025-03-31] MEDS: Metoprolol Succinate ER 25 MG TAB.ER.24H PO (08:14)
[2025-03-31] MEDS: Ferrous Sulfate 324 MG TABLET.DR PO ×2 (08:16→21:09)
[2025-03-31] MEDS: Theophylline Anhydrous ER 400 MG TAB.ER.24H PO (08:16)
[2025-03-31] MEDS: Aspirin Enteric Coated 81 MG TABLET.DR PO (08:17)
[2025-03-31] MEDS: 0.9 % Sodium Chloride Flush 3 ML SYRINGE IVFLUSH ×3 (08:21→21:13)
[2025-03-31 08:40] LABS: Hemoglobin A1C 131.6586 umol/L; Total Hemoglobin (HGBA1C) 2526.7362 umol/L
[2025-03-31 08:42] LABS: Magnesium 1.8 mg/dL (1.6-2.6)
[2025-03-31] MEDS: Albuterol/Iprat 2.5/0.5MG 3 ML AMPUL.NEB INHALE ×3 (08:43→20:08)
[2025-03-31 09:34] LABS: Procalcitonin 0.10 ng/mL
--- NOTE | 2025-03-31 09:44 | MHC.CM.PN ---
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
[2025-03-31 09:58] LABS: Chlamydia pneumoniae PCR Not Detected (Not Detect.); Coronavirus 229E PCR Not Detected (Not Detect.); Coronavirus HKU1 PCR Not Detected (Not Detect.); Coronavirus NL63 PCR Not Detected (Not Detect.); Coronavirus OC43 PCR Not Detected (Not Detect.); RSV PCR Not Detected (Not Detect.); Rhino/Enterovirus PCR Not Detected (Not Detect.)
[2025-03-31] MEDS: Azelastine HCl Nasal 137 MCG/Spray 30 ML 1 SPRAY NOSTRIL-B (10:09)
[2025-03-31 10:33] LABS: Influenza A H1 PCR Not Detected (Not Detect.); Influenza A H1-2009 PCR Not Detected (Not Detect.); Influenza A H3 PCR Not Detected (Not Detect.); SARS-CoV-2 PCR Not Detected (Not Detect.)
[2025-03-31 11:05] LABS: Glucose, Whole Blood 373 mg/dL (60-115)
[2025-03-31] MEDS: oxyBUTYnin chloride ER 5 MG TAB.ER.24 10 MG PO (11:20)
--- NOTE | 2025-03-31 11:53 | P.PNIM_ITS ---
Subjective Subjective Date of Service: 03/31/25 Interval History: shortness of breath improving but wheezing quite a bit not coughing up any sputum no fever Review of Systems Review of Systems: Yes all other systems are reviewed and are negative Physical Exam 2 Vital Signs: Vital Signs: Last Vital Signs Temp 97.8 F 03/31/25 07:20 Pulse 78 03/31/25 08:45 Resp 18 03/31/25 08:45 BP 147/66 H 03/31/25 07:20 Pulse Ox 94 03/31/25 07:20 O2 Del Method Nasal Cannula 03/31/25 07:20 O2 Flow Rate 3 03/31/25 07:20 Oxygen Flow Rate 8 03/30/25 10:29 BMI result Body Mass Index 34.2 Gen: in no acute distress HEENT: sclera anicteric, moist mucus membranes Neck: supple Lungs: coarse diffuse expiratory wheezes Heart: regular rate and rhythm, no murmurs Abd: soft, non-tender, non-distended Ext: no edema Skin: warm/well-perfused Neuro: alert and oriented x3, no focal findings Psych: appropriate affect Objective Data Active Medications Acetaminophen (Acetaminophen 325 Mg Tablet) 650 mg PO Q6H PRN PRN Reason: Pain, Mild 1-3,fever,headache Albuterol/Ipratropium (Albuterol/Iprat 2.5/0.5mg 3 Ml Ampul.Neb) 3 ml INHALE RQ4H WHILE AWAKE [facility] Last Admin: 03/31/25 11:04 Dose: Not Given Documented By: JERRY Non-Admin Reason: Patient Refused Aspirin (Aspirin Enteric Coated 81 Mg Tablet.) 81 mg PO DAILY [facility] Last Admin: 03/31/25 08:17 Dose: 81 mg Documented By: CRISTIAN Atorvastatin Calcium (Atorvastatin Calcium 80 Mg Tablet) 80 mg PO BEDTIME [facility] Azelastine HCl (Azelastine Hcl Nasal 137 Mcg/[place] 30 Ml) 1 spray NOSTRIL-B BID [facility] Last Admin: 03/31/25 10:09 Dose: 1 spray Documented By: CRISTIAN Calcium Carbonate (Calcium Carbonate 750 Mg Tab.Chew) 750 mg PO Q4H PRN PRN Reason: Heartburn Cyanocobalamin (Cyanocobalamin (Vitamin B-12) 1,000 Mcg Tablet) 1,000 mcg PO DAILY [facility] Last Admin: 03/31/25 08:17 Dose: 1,000 mcg Documented By: CRISTIAN Dextrose (Dextrose 50 % 25 Gm/50 Ml Syringe) 25 gm IVPUSH Q15M PRN; Protocol PRN Reason: per Hypoglycemia Standing Ord. Ezetimibe (Ezetimibe 10 Mg Tablet) 10 mg PO DAILY [facility] Last Admin: 03/31/25 08:17 Dose: 10 mg Documented By: CRISTIAN Enoxaparin Sodium (Enoxaparin Sodium 40 Mg/0.4 Ml Syringe) 40 mg SUBCUT Q24H [facility] Last Admin: 03/30/25 18:50 Dose: 40 mg Documented By: [place] Ergocalciferol (Ergocalciferol (Vitamin D2) 1,250 Mcg Capsule) 1,250 mcg PO [place]@0900 [facility] Ferrous Sulfate (Ferrous Sulfate 324 Mg Tablet.) 324 mg PO BID [facility] Last Admin: 03/31/25 08:16 Dose: 324 mg Documented By: CRISTIAN Fluticasone Propionate (Fluticasone Propionate Nasal 16 Gm [place]) 1 spray NOSTRIL-B BID [facility] Last Admin: 03/31/25 10:09 Dose: 1 spray Documented By: CRISTIAN Fluticasone/Umeclidinium/Vilanterol (Fluticasone/Umeclidinium/Vilanterol 200/62.5/25 Blst.W.Dev) 1 puff INHALE RDAILY [facility] Furosemide (Furosemide 20 Mg Tablet) 20 mg PO DAILY PRN; Protocol PRN Reason: Heart failure symptoms Glucose (Glucose Gel 15 Gm Gel..Gram.) 15 gm PO Q15M PRN; Protocol PRN Reason: per Hypoglycemia Standing Ord. Insulin Human Lispro (Insulin Lispro 100 Unit/Ml 3 Ml Vial) 0 unit SUBCUT QIDACHS [facility]; Protocol Last Admin: 03/31/25 11:22 Dose: 10 unit Documented By: DOMINIQUE Comments: Dr perry notified of POC, ordered to give 10 units of lispro Isosorbide Mononitrate (Isosorbide Mononitrate 30 Mg Tab.Er.24h) 30 mg PO DAILY [facility]; Protocol Last Admin: 03/31/25 08:17 Dose: 30 mg Documented By: CRISTIAN Loratadine (Loratadine 10 Mg Tablet) 10 mg PO DAILY PRN PRN Reason: Allergy Symptoms Magnesium Hydroxide (Milk Of Magnesia 30 Ml Oral.Susp) 30 ml PO DAILY PRN PRN Reason: Constipation Magnesium Oxide (Magnesium Oxide 400 Mg Tablet) 400 mg PO BID [facility] Last Admin: 03/31/25 08:17 Dose: 400 mg Documented By: CRISTIAN Melatonin (Melatonin 3 Mg Tablet) 6 mg PO BEDTIME PRN PRN Reason: Insomnia Last Admin: 03/31/25 00:08 Dose: 6 mg Documented By: MAURY Methylprednisolone Sodium Succinate (Methylprednisolone Sod Succ 125 Mg/2 Ml Vial) 40 mg IVPUSH Q12H [facility] Metoprolol Succinate (Metoprolol Succinate Er 25 Mg Tab.Er.24h) 25 mg PO DAILY [facility]; Protocol Last Admin: 03/31/25 08:14 Dose: 25 mg Documented By: CRISTIAN Nitroglycerin (Nitroglycerin 0.4 Mg Tab.Subl) 0.4 mg SUBLINGUAL Q5M PRN PRN Reason: Chest Pain Omeprazole (Omeprazole 20 Mg Capsule.Dr) 20 mg PO BID@0630,1630 [facility] Ondansetron HCl (Ondansetron Hcl 4 Mg/2 Ml Vial) 4 mg IVPUSH Q8H PRN PRN Reason: Nausea and Vomiting Oxybutynin Chloride (Oxybutynin Chloride Er 5 Mg Tab.Er.24) 10 mg PO DAILY@1200 [facility] Last Admin: 03/31/25 11:20 Dose: 10 mg Documented By: LEFEBVA Sertraline HCl (Sertraline Hcl 50 Mg Tablet) 50 mg PO BEDTIME [facility] Sodium Chloride (0.9 % Sodium Chloride Flush 3 Ml Syringe) 3 ml IVFLUSH QSHIFT [facility] Last Admin: 03/31/25 08:21 Dose: 3 ml Documented By: CRISTIAN Theophylline (Theophylline Anhydrous Er 400 Mg Tab.Er.24h) 400 mg PO DAILY [facility] Last Admin: 03/31/25 08:16 Dose: 400 mg Documented By: CRISTIAN Trazodone HCl (Trazodone Hcl 50 Mg Tablet) 50 mg PO BEDTIME [facility] Labs 03/31/25 06:06 03/31/25 06:06 Labs: Laboratory Results - last 24 hr 03/30/25 03/30/25 03/31/25 17:03 21:14 06:06 MCV 84.9 MCH 27.2 MCHC 32.1 RDW 14.7 Plt Count 239 MPV 10.2 Immature Gran % (Auto) 0.9 H Neut % (Auto) 82.6 H Lymph % (Auto) 8.8 L [place] % (Auto) 7.4 Eos % (Auto) 0.0 Baso % (Auto) 0.3 Lymph # (Auto) 1.0 L [place] # (Auto) 0.8 Eos # (Auto) 0.0 Baso # (Auto) 0.0 Abs Immat Gran (auto) 0.10 H Absolute Neuts (auto) 9.1 H Absolute Nucleated RBC 0.000 Nucleated RBC % (auto) 0.0 Anion Gap 14 Estim Creat Clear Calc 57.9 Estimated GFR > 60 POC Glucose 446 H* Random Glucose 200 H Estimat Average Glucose 151 Hemoglobin A1c % 6.9 H Calcium 9.3 Magnesium 1.8 Total Bilirubin 0.2 AST 24 ALT 14 Alkaline Phosphatase 99 Total Protein 6.0 L Albumin 3.6 Procalcitonin 0.10 Urine Color Dark Yellow Urine Appearance Clear Urine pH 5.5 Ur Specific [place] 1.025 Urine Protein Trace Urine Glucose (UA) >=1000 H Urine Ketones 15 Urine Blood Negative Urine Nitrite Negative Ur Leukocyte Esterase Trace H Urine RBC 0-2 Urine WBC 0-5 Ur Squamous Epith Cells 3-5 Urine Bacteria Trace Hyaline Casts 0-2 Respiratory Panel [place] Adenovirus (Rapid PCR) B.pert (TEM-PCR) B.parapertussis DNA PCR C. pneumoniae DNA (PCR) Coronavirus OC43 (PCR) Coronavirus HKU1 (PCR) Coronavirus 229E (PCR) Coronavirus NL63 (PCR) Human Metapneumovir PCR Influenza A (RT-PCR) Influenza A (H1) PCR Influ A (H1/09) PCR Influenza A (H3) PCR Influenza B (RT-PCR) M. pneumoniae (PCR) Parainfluenza 1 (PCR) Parainfluenza 2 (PCR) Parainfluenza 3 (PCR) Parainfluenza 4 (PCR) RSV (PCR) Entero/Rhino (PCR) SARS-CoV-2 RNA (RT-PCR) 03/31/25 03/31/25 03/31/25 07:22 08:59 11:01 MCV MCH MCHC RDW Plt Count MPV Immature Gran % (Auto) Neut % (Auto) Lymph % (Auto) [place] % (Auto) Eos % (Auto) Baso % (Auto) Lymph # (Auto) [place] # (Auto) Eos # (Auto) Baso # (Auto) Abs Immat Gran (auto) Absolute Neuts (auto) Absolute Nucleated RBC Nucleated RBC % (auto) Anion Gap Estim Creat Clear Calc Estimated GFR POC Glucose 173 H 373 H* Random Glucose Estimat Average Glucose Hemoglobin A1c % Calcium Magnesium Total Bilirubin AST ALT Alkaline Phosphatase Total Protein Albumin Procalcitonin Urine Color Urine Appearance Urine pH Ur Specific [place] Urine Protein Urine Glucose (UA) Urine Ketones Urine Blood Urine Nitrite Ur Leukocyte Esterase Urine RBC Urine WBC Ur Squamous Epith Cells Urine Bacteria Hyaline Casts Respiratory Panel [place] See Note Adenovirus (Rapid PCR) Not Detected B.pert (TEM-PCR) Not Detected B.parapertussis DNA PCR Not Detected C. pneumoniae DNA (PCR) Not Detected Coronavirus OC43 (PCR) Not Detected Coronavirus HKU1 (PCR) Not Detected Coronavirus 229E (PCR) Not Detected Coronavirus NL63 (PCR) Not Detected Human Metapneumovir PCR Not Detected Influenza A (RT-PCR) Not Detected Influenza A (H1) PCR Not Detected Influ A (H1/09) PCR Not Detected Influenza A (H3) PCR Not Detected Influenza B (RT-PCR) Not Detected M. pneumoniae (PCR) Not Detected Parainfluenza 1 (PCR) Not Detected Parainfluenza 2 (PCR) Not Detected Parainfluenza 3 (PCR) Not Detected Parainfluenza 4 (PCR) Not Detected RSV (PCR) Not Detected Entero/Rhino (PCR) Not Detected SARS-CoV-2 RNA (RT-PCR) Not Detected Assessment and Plan (1) Acute exacerbation of chronic obstructive pulmonary disease (COPD): Status: Acute Assessment and Plan: d2 for 74yo F with hx CAD, asthma-COPD overlap syndrome on 2L O2 at home, DM2, HFpEF presenting with 2 wk of dyspnea, admitted for acute astham/COPD exacerbation [previous admission 02/23-02/28/25] acute exacerbation of asthma-COPD overlap syndrome - taper methylprednisolone, continue nebs, continue theophylline, continue Trelegy acute/chronic hypoxic resp failure - wean O2 as tolerated, on 2L at home, no CO2 retention DM2 with steroid hyperglycemia - continue MTF, correction-dose lispro CAD - continue ASA, atorvastatin, Imdur, ezetimibe, metoprolol succinate chronic anemia - continue Fe VTE ppx - enoxaparin dispo - PT consult In my clinical judgment, the patient requires continued inpatient hospitalization for the following reasons: resp failure Total time managing care of this patient today: 40 minutes. Quality Stroke Does the patient have a stroke diagnosis?: No VTE Prior VTE?: No VTE Risk Level:: Medical - moderate - high VTE Device Contraindication: Treatment Not Indicated VTE Drug Contraindication: N/A - Med Ordered
[2025-03-31] MEDS: guaiFENesin DM 100/10/5 ML 5 ML SYRUP PO (14:35)
[2025-03-31 16:28] LABS: Glucose, Whole Blood 266 mg/dL (60-115)
[2025-03-31 20:01] LABS: Glucose, Whole Blood 228 mg/dL (60-115)
[2025-04-01] VITALS (9 sets, daily range): BP systolic 121–145; BP diastolic 59–73; PULSE 65–70; RESP 16–20; TEMP 36.1–36.3; O2SAT 94–98
[2025-04-01 06:19] LABS: Venous Blood Gas Refer to POC result
[2025-04-01 06:20] LABS: VBG HCO3 34 mmol/L (22-26); VBG O2 % Saturation 70.0 %
[2025-04-01 06:25] LABS: Hematocrit 29.1 % (37.0-47.0); Hemoglobin 9.2 g/dl (12.0-16.0); Mean Corpuscular HGB Conc 31.6 g/dl (31.0-35.0); Mean Corpuscular Hemoglobin 27.1 pg (27.0-33.0); Mean Corpuscular Volume 85.8 fL (80.0-98.0); NRBC Abs Auto 0.000 X10*3/uL (0.0-0.012); NRBC Pct Auto 0.0 /100WBC (0.0-0.2); Platelet Count 231 X10*3/uL (160-400); Red Blood Count 3.39 X10*6/uL (4.20-5.50); White Blood Count 12.6 X10*3/uL (4.8-10.8)
[2025-04-01 06:40] LABS: Anion Gap 14 (12-20); Blood Urea Nitrogen 20 mg/dL (9-16); Calcium 9.1 mg/dL (8.4-10.2); Carbon Dioxide 29 mmol/L (22-29); Chloride 107 mmol/L (96-108); Creatinine Clr Calc Pharmacy 58.6; Estimated Glomerular Filt Rate > 60; Magnesium 1.8 mg/dL (1.6-2.6); Potassium 4.5 mmol/L (3.3-5.1); Sodium 145 mmol/L (135-145)
[2025-04-01 06:47] LABS: B Type Natriuretic Peptide 82 pg/mL (<100)
[2025-04-01 07:27] LABS: Glucose, Whole Blood 191 mg/dL (60-115)
[2025-04-01] MEDS: Fluticasone/Umeclidinium/Vilanterol 200/62.5/25 BLST.W.DEV 1 PUFF INHALE (08:15)
[2025-04-01] MEDS: Albuterol/Iprat 2.5/0.5MG 3 ML AMPUL.NEB INHALE ×3 (08:15→19:22)
[2025-04-01] MEDS: Ferrous Sulfate 324 MG TABLET.DR PO ×2 (08:55→20:09)
[2025-04-01] MEDS: Metoprolol Succinate ER 25 MG TAB.ER.24H PO (08:56)
[2025-04-01] MEDS: Aspirin Enteric Coated 81 MG TABLET.DR PO (08:56)
[2025-04-01] MEDS: Theophylline Anhydrous ER 400 MG TAB.ER.24H PO (08:56)
[2025-04-01] MEDS: guaiFENesin DM 100/10/5 ML 5 ML SYRUP PO ×2 (08:57→16:08)
[2025-04-01] MEDS: 0.9 % Sodium Chloride Flush 3 ML SYRINGE IVFLUSH ×3 (09:00→20:09)
--- NOTE | 2025-04-01 09:27 | HO.PM.IMPN ---
Subjective Subjective Date of Service: 04/01/25 Interval History: c/o dyspnea + wheezing though improving Review of Systems Review of Systems: Yes all other systems are reviewed and are negative Physical Exam Vital Signs: Vital Signs: Last Vital Signs Temp 97.2 F 04/01/25 07:12 Pulse 68 04/01/25 08:56 Resp 16 04/01/25 08:22 BP 131/73 04/01/25 08:55 Pulse Ox 97 04/01/25 07:12 O2 Del Method Nasal Cannula 04/01/25 07:12 O2 Flow Rate 3 04/01/25 07:12 Oxygen Flow Rate 8 03/30/25 10:29 BMI result Body Mass Index 34.2 Gen: in no acute distress HEENT: sclera anicteric, moist mucus membranes Neck: supple Lungs: coarse diffuse expiratory wheezes Heart: regular rate and rhythm, no murmurs Abd: soft, non-tender, non-distended Ext: no edema Skin: warm/well-perfused Neuro: alert and oriented x3, no focal findings Psych: appropriate affect Objective Data Active Medications Acetaminophen (Acetaminophen 325 Mg Tablet) 650 mg PO Q6H PRN PRN Reason: Pain, Mild 1-3,fever,headache Last Admin: 03/31/25 21:18 Dose: 650 mg Documented By: MAURY Albuterol/Ipratropium (Albuterol/Iprat 2.5/0.5mg 3 Ml Ampul.Neb) 3 ml INHALE RQ4H WHILE AWAKE [facility] Last Admin: 04/01/25 08:15 Dose: 3 ml Documented By: JERRY Aspirin (Aspirin Enteric Coated 81 Mg Tablet.) 81 mg PO DAILY [facility] Last Admin: 04/01/25 08:56 Dose: 81 mg Documented By: CRISTIAN Atorvastatin Calcium (Atorvastatin Calcium 80 Mg Tablet) 80 mg PO BEDTIME [facility] Last Admin: 03/31/25 21:09 Dose: 80 mg Documented By: MAURY Azelastine HCl (Azelastine Hcl Nasal 137 Mcg/[place] 30 Ml) 1 spray NOSTRIL-B BID [facility] Last Admin: 04/01/25 09:00 Dose: Not Given Documented By: CRISTIAN Non-Admin Reason: Patient Refused Benzonatate (Benzonatate 100 Mg Capsule) 200 mg PO TID PRN PRN Reason: Cough Last Admin: 03/31/25 13:08 Dose: 200 mg Documented By: COLGERMAN Calcium Carbonate (Calcium Carbonate 750 Mg Tab.Chew) 750 mg PO Q4H PRN PRN Reason: Heartburn Cyanocobalamin (Cyanocobalamin (Vitamin B-12) 1,000 Mcg Tablet) 1,000 mcg PO DAILY [facility] Last Admin: 04/01/25 08:56 Dose: 1,000 mcg Documented By: CRISTIAN Dextrose (Dextrose 50 % 25 Gm/50 Ml Syringe) 25 gm IVPUSH Q15M PRN; Protocol PRN Reason: per Hypoglycemia Standing Ord. Ezetimibe (Ezetimibe 10 Mg Tablet) 10 mg PO DAILY [facility] Last Admin: 04/01/25 08:56 Dose: 10 mg Documented By: CRISTIAN Enoxaparin Sodium (Enoxaparin Sodium 40 Mg/0.4 Ml Syringe) 40 mg SUBCUT Q24H [facility] Last Admin: 03/31/25 16:50 Dose: 40 mg Documented By: CRISTIAN Ergocalciferol (Ergocalciferol (Vitamin D2) 1,250 Mcg Capsule) 1,250 mcg PO [place]@0900 [facility] Last Admin: 04/01/25 08:57 Dose: 1,250 mcg Documented By: CRISTIAN Ferrous Sulfate (Ferrous Sulfate 324 Mg Tablet.Dr) 324 mg PO BID [facility] Last Admin: 04/01/25 08:55 Dose: 324 mg Documented By: CRISTIAN Fluticasone Propionate (Fluticasone Propionate Nasal 16 Gm [place]) 1 spray NOSTRIL-B BID [facility] Last Admin: 04/01/25 09:00 Dose: Not Given Documented By: CRISTIAN Non-Admin Reason: Patient Refused Fluticasone/Umeclidinium/Vilanterol (Fluticasone/Umeclidinium/Vilanterol 200/62.5/25 Blst.W.Dev) 1 puff INHALE RDAILY [facility] Last Admin: 04/01/25 08:15 Dose: 1 puff Documented By: JERRY Furosemide (Furosemide 20 Mg Tablet) 20 mg PO DAILY PRN; Protocol PRN Reason: Heart failure symptoms Glucose (Glucose Gel 15 Gm Gel..Gram.) 15 gm PO Q15M PRN; Protocol PRN Reason: per Hypoglycemia Standing Ord. Guaifenesin/Dextromethorphan (Guaifenesin Dm 100/10/5 Ml 5 Ml Syrup) 5 ml PO Q4H PRN PRN Reason: Cough Last Admin: 04/01/25 08:57 Dose: 5 ml Documented By: CRISTIAN Insulin Human Lispro (Insulin Lispro 100 Unit/Ml 3 Ml Vial) 0 unit SUBCUT QIDACHS [facility]; Protocol Last Admin: 04/01/25 08:55 Dose: 2 unit Documented By: CRISTIAN Isosorbide Mononitrate (Isosorbide Mononitrate 30 Mg Tab.Er.24h) 30 mg PO DAILY [facility]; Protocol Last Admin: 04/01/25 08:55 Dose: 30 mg Documented By: CRISTIAN Loratadine (Loratadine 10 Mg Tablet) 10 mg PO DAILY PRN PRN Reason: Allergy Symptoms Magnesium Hydroxide (Milk Of Magnesia 30 Ml Oral.Susp) 30 ml PO DAILY PRN PRN Reason: Constipation Magnesium Oxide (Magnesium Oxide 400 Mg Tablet) 400 mg PO BID [facility] Last Admin: 04/01/25 08:56 Dose: 400 mg Documented By: CRISTIAN Melatonin (Melatonin 3 Mg Tablet) 6 mg PO BEDTIME PRN PRN Reason: Insomnia Last Admin: 03/31/25 22:23 Dose: 6 mg Documented By: MAURY Comments: LAST NIGHT DOSE LATE NEW ADMIT, REQUEST NOW FOR SLEEP Methylprednisolone Sodium Succinate (Methylprednisolone Sod Succ 125 Mg/2 Ml Vial) 40 mg IVPUSH Q12H [facility] Last Admin: 04/01/25 06:11 Dose: 40 mg Documented By: MAURY Metoprolol Succinate (Metoprolol Succinate Er 25 Mg Tab.Er.24h) 25 mg PO DAILY [facility]; Protocol Last Admin: 04/01/25 08:56 Dose: 25 mg Documented By: CRISTIAN Nitroglycerin (Nitroglycerin 0.4 Mg Tab.Subl) 0.4 mg SUBLINGUAL Q5M PRN PRN Reason: Chest Pain Nystatin (Nystatin Powder 15 Gm Bottle) 1 appl TOPICAL TID [facility]; Protocol Last Admin: 04/01/25 09:00 Dose: 1 appl Documented By: CRISTIAN Omeprazole (Omeprazole 20 Mg Capsule.Dr) 20 mg PO BID@0630,1630 [facility] Last Admin: 04/01/25 06:11 Dose: 20 mg Documented By: MAURY Ondansetron HCl (Ondansetron Hcl 4 Mg/2 Ml Vial) 4 mg IVPUSH Q8H PRN PRN Reason: Nausea and Vomiting Oxybutynin Chloride (Oxybutynin Chloride Er 5 Mg Tab.Er.24) 10 mg PO DAILY@1200 [facility] Last Admin: 03/31/25 11:20 Dose: 10 mg Documented By: LEFEBVA Sertraline HCl (Sertraline Hcl 50 Mg Tablet) 50 mg PO BEDTIME [facility] Last Admin: 03/31/25 21:09 Dose: 50 mg Documented By: MAURY Sodium Chloride (0.9 % Sodium Chloride Flush 3 Ml Syringe) 3 ml IVFLUSH QSHIFT [facility] Last Admin: 04/01/25 09:00 Dose: 3 ml Documented By: CRISTIAN Theophylline (Theophylline Anhydrous Er 400 Mg Tab.Er.24h) 400 mg PO DAILY [facility] Last Admin: 04/01/25 08:56 Dose: 400 mg Documented By: CRISTIAN Trazodone HCl (Trazodone Hcl 50 Mg Tablet) 50 mg PO BEDTIME [facility] Last Admin: 03/31/25 21:09 Dose: 50 mg Documented By: MAURY Labs 04/01/25 06:06 04/01/25 06:06 Labs: Laboratory Results - last 24 hr 03/31/25 03/31/25 03/31/25 06:06 08:59 11:01 MCV MCH MCHC RDW Plt Count MPV Absolute Nucleated RBC Nucleated RBC % (auto) VBG pH VBG pCO2 VBG pO2 VBG HCO3 VBG O2 Saturation VBG Base Excess Anion Gap Estim Creat Clear Calc Estimated GFR POC Glucose 373 H* Random Glucose Calcium Magnesium B-Natriuretic Peptide Procalcitonin 0.10 Respiratory Panel [place] See Note Adenovirus (Rapid PCR) Not Detected B.pert (TEM-PCR) Not Detected B.parapertussis DNA PCR Not Detected C. pneumoniae DNA (PCR) Not Detected Coronavirus OC43 (PCR) Not Detected Coronavirus HKU1 (PCR) Not Detected Coronavirus 229E (PCR) Not Detected Coronavirus NL63 (PCR) Not Detected Human Metapneumovir PCR Not Detected Influenza A (RT-PCR) Not Detected Influenza A (H1) PCR Not Detected Influ A (H1/09) PCR Not Detected Influenza A (H3) PCR Not Detected Influenza B (RT-PCR) Not Detected M. pneumoniae (PCR) Not Detected Parainfluenza 1 (PCR) Not Detected Parainfluenza 2 (PCR) Not Detected Parainfluenza 3 (PCR) Not Detected Parainfluenza 4 (PCR) Not Detected RSV (PCR) Not Detected Entero/Rhino (PCR) Not Detected SARS-CoV-2 RNA (RT-PCR) Not Detected 03/31/25 03/31/25 04/01/25 16:21 19:53 06:06 MCV 85.8 MCH 27.1 MCHC 31.6 RDW 14.9 Plt Count 231 MPV 9.4 Absolute Nucleated RBC 0.000 Nucleated RBC % (auto) 0.0 VBG pH VBG pCO2 VBG pO2 VBG HCO3 VBG O2 Saturation VBG Base Excess Anion Gap 14 Estim Creat Clear Calc 58.6 Estimated GFR > 60 POC Glucose 266 H 228 H Random Glucose 200 H Calcium 9.1 Magnesium 1.8 B-Natriuretic Peptide 82 Procalcitonin Respiratory Panel [place] Adenovirus (Rapid PCR) B.pert (TEM-PCR) B.parapertussis DNA PCR C. pneumoniae DNA (PCR) Coronavirus OC43 (PCR) Coronavirus HKU1 (PCR) Coronavirus 229E (PCR) Coronavirus NL63 (PCR) Human Metapneumovir PCR Influenza A (RT-PCR) Influenza A (H1) PCR Influ A (H1/09) PCR Influenza A (H3) PCR Influenza B (RT-PCR) M. pneumoniae (PCR) Parainfluenza 1 (PCR) Parainfluenza 2 (PCR) Parainfluenza 3 (PCR) Parainfluenza 4 (PCR) RSV (PCR) Entero/Rhino (PCR) SARS-CoV-2 RNA (RT-PCR) 04/01/25 04/01/25 06:16 07:15 MCV MCH MCHC RDW Plt Count MPV Absolute Nucleated RBC Nucleated RBC % (auto) VBG pH 7.36 VBG pCO2 59 VBG pO2 53 VBG HCO3 34 H VBG O2 Saturation 70.0 VBG Base Excess 6.8 Anion Gap Estim Creat Clear Calc Estimated GFR POC Glucose 191 H Random Glucose Calcium Magnesium B-Natriuretic Peptide Procalcitonin Respiratory Panel [place] Adenovirus (Rapid PCR) B.pert (TEM-PCR) B.parapertussis DNA PCR C. pneumoniae DNA (PCR) Coronavirus OC43 (PCR) Coronavirus HKU1 (PCR) Coronavirus 229E (PCR) Coronavirus NL63 (PCR) Human Metapneumovir PCR Influenza A (RT-PCR) Influenza A (H1) PCR Influ A (H1/09) PCR Influenza A (H3) PCR Influenza B (RT-PCR) M. pneumoniae (PCR) Parainfluenza 1 (PCR) Parainfluenza 2 (PCR) Parainfluenza 3 (PCR) Parainfluenza 4 (PCR) RSV (PCR) Entero/Rhino (PCR) SARS-CoV-2 RNA (RT-PCR) Microbiology Microbiology Results: Microbiology 03/30/25 10:27 Blood Culture - Preliminary Blood - Venous No growth after 24 hours. 03/30/25 10:27 Blood Culture - Preliminary Blood - Venous No growth after 24 hours. Assessment and Plan (1) Acute exacerbation of chronic obstructive pulmonary disease (COPD): Status: Acute Assessment and Plan: d3 for 74yo F with hx CAD, asthma-COPD overlap syndrome on 2L O2 at home, DM2, HFpEF presenting with 2 wk of dyspnea, admitted for acute astham/COPD exacerbation [previous admission 02/23-02/28/25] acute exacerbation of asthma-COPD overlap syndrome - taper methylprednisolone, continue nebs, continue theophylline, continue Trelegy acute/chronic hypoxic resp failure - wean O2 as tolerated, on 2L at home, no CO2 retention DM2 with steroid hyperglycemia - continue MTF, correction-dose lispro CAD - continue ASA, atorvastatin, Imdur, ezetimibe, metoprolol succinate chronic anemia - continue Fe VTE ppx - enoxaparin dispo - PT consulted, recommends STR/IPR In my clinical judgment, the patient requires continued inpatient hospitalization for the following reasons: resp failure Total time managing care of this patient today: 40 minutes. Quality Stroke Does the patient have a stroke diagnosis?: No VTE Prior VTE?: No VTE Risk Level:: Medical - moderate - high VTE Device Contraindication: Treatment Not Indicated VTE Drug Contraindication: N/A - Med Ordered
[2025-04-01 11:03] LABS: Glucose, Whole Blood 273 mg/dL (60-115)
[2025-04-01] MEDS: oxyBUTYnin chloride ER 5 MG TAB.ER.24 10 MG PO (11:37)
[2025-04-01 16:02] LABS: Glucose, Whole Blood 266 mg/dL (60-115)
--- NOTE | 2025-04-01 16:20 | PC.NURSE ---
Pt weaned to baseline 2L NC sats 94%
[2025-04-01 20:00] LABS: Glucose, Whole Blood 228 mg/dL (60-115)
[2025-04-02] VITALS (8 sets, daily range): BP systolic 139–167; BP diastolic 63–72; PULSE 56–77; RESP 16–20; TEMP 36.1–36.4; O2SAT 93–98
[2025-04-02 06:17] LABS: Venous Blood Gas Refer to POC result
[2025-04-02 06:20] LABS: VBG HCO3 27 mmol/L (22-26); VBG O2 % Saturation 100.0 %
[2025-04-02 06:32] LABS: Anion Gap 10 (12-20); Blood Urea Nitrogen 19 mg/dL (9-16); Calcium 8.8 mg/dL (8.4-10.2); Carbon Dioxide 27 mmol/L (22-29); Chloride 108 mmol/L (96-108); Creatinine Clr Calc Pharmacy 55.9; Estimated Glomerular Filt Rate > 60; Potassium 4.3 mmol/L (3.3-5.1); Sodium 141 mmol/L (135-145)
[2025-04-02 06:48] LABS: Hematocrit 28.2 % (37.0-47.0); Hemoglobin 9.1 g/dl (12.0-16.0); Mean Corpuscular HGB Conc 32.3 g/dl (31.0-35.0); Mean Corpuscular Hemoglobin 27.5 pg (27.0-33.0); Mean Corpuscular Volume 85.2 fL (80.0-98.0); NRBC Abs Auto 0.000 X10*3/uL (0.0-0.012); NRBC Pct Auto 0.0 /100WBC (0.0-0.2); Platelet Count 236 X10*3/uL (160-400); Red Blood Count 3.31 X10*6/uL (4.20-5.50); White Blood Count 9.9 X10*3/uL (4.8-10.8)
[2025-04-02 07:35] LABS: Glucose, Whole Blood 205 mg/dL (60-115)
[2025-04-02] MEDS: Albuterol/Iprat 2.5/0.5MG 3 ML AMPUL.NEB INHALE ×4 (08:11→19:15)
[2025-04-02] MEDS: Fluticasone/Umeclidinium/Vilanterol 200/62.5/25 BLST.W.DEV 1 PUFF INHALE (08:11)
[2025-04-02] MEDS: Metoprolol Succinate ER 25 MG TAB.ER.24H PO (08:51)
[2025-04-02] MEDS: Ferrous Sulfate 324 MG TABLET.DR PO ×2 (08:51→20:29)
[2025-04-02] MEDS: Theophylline Anhydrous ER 400 MG TAB.ER.24H PO (08:51)
[2025-04-02] MEDS: Aspirin Enteric Coated 81 MG TABLET.DR PO (08:52)
[2025-04-02] MEDS: 0.9 % Sodium Chloride Flush 3 ML SYRINGE IVFLUSH ×3 (08:54→20:34)
[2025-04-02] MEDS: Azelastine HCl Nasal 137 MCG/Spray 30 ML 1 SPRAY NOSTRIL-B (08:54)
[2025-04-02] MEDS: guaiFENesin DM 100/10/5 ML 5 ML SYRUP PO ×2 (09:05→14:29)
[2025-04-02 11:32] LABS: Glucose, Whole Blood 308 mg/dL (60-115)
--- NOTE | 2025-04-02 12:23 | HO.PM.IMPN ---
Subjective Subjective Date of Service: 04/02/25 Interval History: dyspnea/cough improving but still wheezing Review of Systems Review of Systems: Yes all other systems are reviewed and are negative Physical Exam Vital Signs: Vital Signs: Last Vital Signs Temp 97.0 F 04/02/25 07:53 Pulse 63 04/02/25 08:13 Resp 18 04/02/25 08:13 BP 167/72 H 04/02/25 07:53 Pulse Ox 94 04/02/25 07:53 O2 Del Method Nasal Cannula 04/02/25 07:53 O2 Flow Rate 2.0 04/02/25 07:53 Oxygen Flow Rate 8 03/30/25 10:29 BMI result Body Mass Index 34.2 Gen: in no acute distress HEENT: sclera anicteric, moist mucus membranes Neck: supple Lungs: coarse diffuse expiratory wheezes Heart: regular rate and rhythm, no murmurs Abd: soft, non-tender, non-distended Ext: no edema Skin: warm/well-perfused Neuro: alert and oriented x3, no focal findings Psych: appropriate affect Objective Data Active Medications Acetaminophen (Acetaminophen 325 Mg Tablet) 650 mg PO Q6H PRN PRN Reason: Pain, Mild 1-3,fever,headache Last Admin: 04/01/25 16:07 Dose: 650 mg Documented By: CRISTIAN Albuterol/Ipratropium (Albuterol/Iprat 2.5/0.5mg 3 Ml Ampul.Neb) 3 ml INHALE RQ4H WHILE AWAKE [facility] Last Admin: 04/02/25 08:11 Dose: 3 ml Documented By: LILI Aspirin (Aspirin Enteric Coated 81 Mg Tablet.) 81 mg PO DAILY [facility] Last Admin: 04/02/25 08:52 Dose: 81 mg Documented By: DEMI Atorvastatin Calcium (Atorvastatin Calcium 80 Mg Tablet) 80 mg PO BEDTIME [facility] Last Admin: 04/01/25 20:09 Dose: 80 mg Documented By: LORRAINE Azelastine HCl (Azelastine Hcl Nasal 137 Mcg/[place] 30 Ml) 1 spray NOSTRIL-B BID [facility] Last Admin: 04/02/25 08:54 Dose: 1 spray Documented By: DEMI Benzonatate (Benzonatate 100 Mg Capsule) 200 mg PO TID PRN PRN Reason: Cough Last Admin: 04/02/25 09:05 Dose: 200 mg Documented By: DEMI Calcium Carbonate (Calcium Carbonate 750 Mg Tab.Chew) 750 mg PO Q4H PRN PRN Reason: Heartburn Cyanocobalamin (Cyanocobalamin (Vitamin B-12) 1,000 Mcg Tablet) 1,000 mcg PO DAILY [facility] Last Admin: 04/02/25 08:51 Dose: 1,000 mcg Documented By: DEMI Dextrose (Dextrose 50 % 25 Gm/50 Ml Syringe) 25 gm IVPUSH Q15M PRN; Protocol PRN Reason: per Hypoglycemia Standing Ord. Ezetimibe (Ezetimibe 10 Mg Tablet) 10 mg PO DAILY [facility] Last Admin: 04/02/25 09:00 Dose: 10 mg Documented By: DEMI Enoxaparin Sodium (Enoxaparin Sodium 40 Mg/0.4 Ml Syringe) 40 mg SUBCUT Q24H [facility] Last Admin: 04/01/25 16:58 Dose: 40 mg Documented By: CRISTIAN Ergocalciferol (Ergocalciferol (Vitamin D2) 1,250 Mcg Capsule) 1,250 mcg PO Lagunas@0900 [facility] Last Admin: 04/01/25 08:57 Dose: 1,250 mcg Documented By: CRISTIAN Ferrous Sulfate (Ferrous Sulfate 324 Mg Tablet.Dr) 324 mg PO BID [facility] Last Admin: 04/02/25 08:51 Dose: 324 mg Documented By: DEMI Fluticasone Propionate (Fluticasone Propionate Nasal 16 Gm [place]) 1 spray NOSTRIL-B BID [facility] Last Admin: 04/02/25 08:55 Dose: 1 spray Documented By: DEMI Fluticasone/Umeclidinium/Vilanterol (Fluticasone/Umeclidinium/Vilanterol 200/62.5/25 Blst.W.Dev) 1 puff INHALE RDAILY [facility] Last Admin: 04/02/25 08:11 Dose: 1 puff Documented By: LILI Furosemide (Furosemide 20 Mg Tablet) 20 mg PO DAILY PRN; Protocol PRN Reason: Heart failure symptoms Glucose (Glucose Gel 15 Gm Gel..Gram.) 15 gm PO Q15M PRN; Protocol PRN Reason: per Hypoglycemia Standing Ord. Guaifenesin/Dextromethorphan (Guaifenesin Dm 100/10/5 Ml 5 Ml Syrup) 5 ml PO Q4H PRN PRN Reason: Cough Last Admin: 04/02/25 09:05 Dose: 5 ml Documented By: DEMI Insulin Human Lispro (Insulin Lispro 100 Unit/Ml 3 Ml Vial) 0 unit SUBCUT QIDACHS [facility]; Protocol Last Admin: 04/02/25 12:13 Dose: 8 unit Documented By: DEMI Isosorbide Mononitrate (Isosorbide Mononitrate 30 Mg Tab.Er.24h) 30 mg PO DAILY [facility]; Protocol Last Admin: 04/02/25 08:51 Dose: 30 mg Documented By: DEMI Loratadine (Loratadine 10 Mg Tablet) 10 mg PO DAILY PRN PRN Reason: Allergy Symptoms Magnesium Hydroxide (Milk Of Magnesia 30 Ml Oral.Susp) 30 ml PO DAILY PRN PRN Reason: Constipation Magnesium Oxide (Magnesium Oxide 400 Mg Tablet) 400 mg PO BID [facility] Last Admin: 04/02/25 08:51 Dose: 400 mg Documented By: DEMI Melatonin (Melatonin 3 Mg Tablet) 6 mg PO BEDTIME PRN PRN Reason: Insomnia Last Admin: 04/01/25 23:54 Dose: 6 mg Documented By: LORRAINE Methylprednisolone Sodium Succinate (Methylprednisolone Sod Succ 125 Mg/2 Ml Vial) 40 mg IVPUSH Q12H [facility] Last Admin: 04/02/25 05:44 Dose: 40 mg Documented By: LORRAINE Metoprolol Succinate (Metoprolol Succinate Er 25 Mg Tab.Er.24h) 25 mg PO DAILY [facility]; Protocol Last Admin: 04/02/25 08:51 Dose: 25 mg Documented By: DEMI Nitroglycerin (Nitroglycerin 0.4 Mg Tab.Subl) 0.4 mg SUBLINGUAL Q5M PRN PRN Reason: Chest Pain Nystatin (Nystatin Powder 15 Gm Bottle) 1 appl TOPICAL TID [facility]; Protocol Last Admin: 04/02/25 08:57 Dose: 1 appl Documented By: DEMI Omeprazole (Omeprazole 20 Mg Capsule.Dr) 20 mg PO BID@0630,1630 [facility] Last Admin: 04/02/25 05:45 Dose: 20 mg Documented By: LORRAINE Ondansetron HCl (Ondansetron Hcl 4 Mg/2 Ml Vial) 4 mg IVPUSH Q8H PRN PRN Reason: Nausea and Vomiting Oxybutynin Chloride (Oxybutynin Chloride Er 5 Mg Tab.Er.24) 10 mg PO DAILY@1200 [facility] Last Admin: 04/01/25 11:37 Dose: 10 mg Documented By: CRISTIAN Sertraline HCl (Sertraline Hcl 50 Mg Tablet) 50 mg PO BEDTIME [facility] Last Admin: 04/01/25 20:09 Dose: 50 mg Documented By: LORRAINE Sodium Chloride (0.9 % Sodium Chloride Flush 3 Ml Syringe) 3 ml IVFLUSH QSHIFT [facility] Last Admin: 04/02/25 08:54 Dose: 3 ml Documented By: DEMI Theophylline (Theophylline Anhydrous Er 400 Mg Tab.Er.24h) 400 mg PO DAILY [facility] Last Admin: 04/02/25 08:51 Dose: 400 mg Documented By: DEMI Trazodone HCl (Trazodone Hcl 50 Mg Tablet) 50 mg PO BEDTIME [facility] Last Admin: 04/01/25 20:09 Dose: 50 mg Documented By: LORRAINE Labs 04/02/25 06:11 04/02/25 06:11 Labs: Laboratory Results - last 24 hr 04/01/25 04/01/25 04/02/25 15:57 19:56 06:11 MCV 85.2 MCH 27.5 MCHC 32.3 RDW 14.6 Plt Count 236 MPV 9.9 Absolute Nucleated RBC 0.000 Nucleated RBC % (auto) 0.0 VBG pH VBG pCO2 VBG pO2 VBG HCO3 VBG O2 Saturation VBG Base Excess Anion Gap 10 L Estim Creat Clear Calc 55.9 Estimated GFR > 60 POC Glucose 266 H 228 H Random Glucose 250 H Calcium 8.8 04/02/25 04/02/25 04/02/25 06:16 07:31 11:28 MCV MCH MCHC RDW Plt Count MPV Absolute Nucleated RBC Nucleated RBC % (auto) VBG pH 7.44 H VBG pCO2 40 VBG pO2 96 VBG HCO3 27 H VBG O2 Saturation 100.0 VBG Base Excess 3.4 Anion Gap Estim Creat Clear Calc Estimated GFR POC Glucose 205 H 308 H Random Glucose Calcium Microbiology Microbiology Results: Microbiology 03/30/25 10:27 Blood Culture - Preliminary Blood - Venous No growth after 48 hours. 03/30/25 10:27 Blood Culture - Preliminary Blood - Venous No growth after 48 hours. Assessment and Plan (1) Acute exacerbation of chronic obstructive pulmonary disease (COPD): Status: Acute Assessment and Plan: d4 for 74yo F with hx CAD, asthma-COPD overlap syndrome on 2L O2 at home, DM2, HFpEF presenting with 2 wk of dyspnea, admitted for acute astham/COPD exacerbation [previous admission 02/23-02/28/25] acute exacerbation of asthma-COPD overlap syndrome - continue to taper methylprednisolone, continue nebs, continue theophylline, continue Trelegy acute/chronic hypoxic resp failure - on home dose of 2L, no CO2 retention DM2 with steroid hyperglycemia - continue MTF, correction-dose lispro CAD - continue ASA, atorvastatin, Imdur, ezetimibe, metoprolol succinate chronic anemia - continue Fe VTE ppx - enoxaparin dispo - PT consulted, recommends STR/IPR In my clinical judgment, the patient requires continued inpatient hospitalization for the following reasons: placement Total time managing care of this patient today: 35 minutes. Quality Stroke Does the patient have a stroke diagnosis?: No VTE Prior VTE?: No VTE Risk Level:: Medical - moderate - high VTE Device Contraindication: Treatment Not Indicated VTE Drug Contraindication: N/A - Med Ordered
[2025-04-02] MEDS: oxyBUTYnin chloride ER 5 MG TAB.ER.24 10 MG PO (13:06)
--- NOTE | 2025-04-02 15:49 | MHC.CM.PN ---
pt accepted at [facility] awaiting auth
[2025-04-02 16:08] LABS: Glucose, Whole Blood 289 mg/dL (60-115)
[2025-04-02 19:59] LABS: Glucose, Whole Blood 334 mg/dL (60-115)
[2025-04-03 03:10] VITALS: BP 133/69; PULSE 72; RESP 18; TEMP 36.3; O2SAT 93
[2025-04-03 07:31] LABS: Glucose, Whole Blood 180 mg/dL (60-115)
[2025-04-03] MEDS: Albuterol/Iprat 2.5/0.5MG 3 ML AMPUL.NEB INHALE ×2 (07:37→11:17)
[2025-04-03] MEDS: Fluticasone/Umeclidinium/Vilanterol 200/62.5/25 BLST.W.DEV 1 PUFF INHALE (07:38)
[2025-04-03 07:39] VITALS: PULSE 61; RESP 14; O2SAT 98
[2025-04-03] MEDS: Azelastine HCl Nasal 137 MCG/Spray 30 ML 1 SPRAY NOSTRIL-B (07:57)
[2025-04-03] MEDS: 0.9 % Sodium Chloride Flush 3 ML SYRINGE IVFLUSH (07:59)
[2025-04-03 08:00] VITALS: BP 135/62; PULSE 62; RESP 18; TEMP 36.5; O2SAT 95
[2025-04-03] MEDS: Metoprolol Succinate ER 25 MG TAB.ER.24H PO (08:00)
[2025-04-03] MEDS: Aspirin Enteric Coated 81 MG TABLET.DR PO (08:01)
[2025-04-03] MEDS: Ferrous Sulfate 324 MG TABLET.DR PO (08:01)
[2025-04-03] MEDS: Theophylline Anhydrous ER 400 MG TAB.ER.24H PO (08:03)
--- NOTE | 2025-04-03 09:12 | MHC.CM.PN ---
pt willbe dcd at 1 to [facility]
--- NOTE | 2025-04-03 09:20 | P.DS_ITS ---
DS: Providers Provider Date of Service: 04/03/25 Date of admission: 03/30/25 16:13 Date of discharge: 04/03/25 Primary care physician: Estrella Brunner MD DS: Diagnosis Discharge Diagnosis (1) Acute exacerbation of chronic obstructive pulmonary disease (COPD): Status: Acute DS: Summary Hospital Course Hospital Course: from initial hpi: 74-year-old female with history of coronary artery disease status post MO, asthma COPD overlap syndrome on 2 L of oxygen at home, diabetes type 2 and a history of unspecified CHF presents with worsening shortness of breath over the last 2 weeks. Of note patient was admitted for same 02/2025 through 02/28/2025 and recently discharged from [facility] approximately 2 weeks ago. States over the. Over the last 2 weeks of breathing has gotten progressively worse and is not responding to home therapies. Patient states her breathing got to such as state that she called EMS. EN route patient was given DuoNeb with sats dropping to 80%. Patient placed on CPAP with improvement in oxygenation to the 92-94 range. In the emergency room she received a DuoNeb, IV steroids supplemental O2 however it was not tolerating nasal O2. Admission requested for failure of outpatient therapies hospital course: She was admitted for acute on chronic hypoxic respiratory failure due to moderate persistent asthma/COPD with acute decompensation. Was treated with Solu-Medrol, DuoNebs, theophylline, Trelegy. Was weaned down to 2 L home O2. Shortness of breath improved. Will be discharged on 5 more days of prednisone. For diabetes with steroid induced hyperglycemia was given insulin sliding scale on discharge we will continue metformin. For coronary artery disease was continued on aspirin, statin, Imdur, azithromycin, Toprol. For chronic iron deficiency anemia was continued on iron supplement. For deconditioning was seen by physical therapy recommended short-term rehab to which patient will be discharged. She is expected to require less than 30 days. Time Attestation Discharge Coordination Time (in mins): 32 Quality: Safe Use of Opioids Does Pt have an Active Cancer Diagnosis on the Problem List?: No Quality: Stroke Does the patient have a stroke diagnosis?: No Physical Exam Vital Signs: Vital Signs: Last Vital Signs Temp 97.7 F 04/03/25 08:00 Pulse 62 04/03/25 08:00 Resp 18 04/03/25 08:00 BP 135/62 04/03/25 08:00 Pulse Ox 95 04/03/25 08:00 O2 Del Method Nasal Cannula 04/03/25 08:00 O2 Flow Rate 2.0 04/03/25 08:00 Oxygen Flow Rate 8 03/30/25 10:29 BMI result Body Mass Index 34.2 DS: Data Data Completed and Pending Completed studies during hospitalization [Text1]: Procedures Insertion of Endotracheal Airway into Trachea, Via Natural or Artificial Opening (12/19/21) Insertion of Infusion Device into Superior Vena Cava, Percutaneous Approach (12/19/21) Introduction of Vasopressor into Peripheral Vein, Percutaneous Approach (12/19/21) Replacement of Left Knee Joint with Synthetic Substitute, Uncemented, Open Approach (11/11/21) Respiratory Ventilation, Less than 24 Consecutive Hours (12/19/21) Labs on day of discharge: Laboratory Results - last 24 hr 04/02/25 04/02/25 04/02/25 11:28 16:03 19:53 POC Glucose 308 H 289 H 334 H 04/03/25 07:26 POC Glucose 180 H Preliminary micro results at discharge 03/30/25 10:27 Blood Culture - Preliminary Blood - Venous No growth after 48 hours. 03/30/25 10:27 Blood Culture - Preliminary Blood - Venous No growth after 48 hours. Discharge Plan Discharge Anticipated Discharge Date/Time: 04/03/25 09:17 Patient Disposition: Xfer SNF Discharge Diagnosis: copd Referrals: [facility] [Other] - 1 Week Estrella Brunner MD [Primary Care Provider, Internal Medicine] - 1 Week Discharge Medications: New prednisone 20 mg tablet 40 mg PO DAILY Qty: 10 0RF Continued (DME) walker Misc See Rx Instructions .MEDSUPPLY Qty: 1 0RF Rx Instructions: Folding Front wheeled walker ibuprofen 600 mg tablet 600 mg PO Q8H PRN (Reason: pain) 10 Days Qty: 20 0RF Trelegy Ellipta 200-62.5-25 mcg blister with device 1 ea PO DAILY Qty: 60 6RF Repatha SureClick 140 mg/mL pen injector 140 mg subcut Q2W Qty: 6 3RF trazodone 50 mg tablet 1 tab PO BEDTIME oxybutynin chloride 10 mg tablet extended release 24hr 1 tab PO DAILY@1200 cyanocobalamin (vitamin B-12) [Vitamin B-12] 1,000 mcg tablet 1 tab PO DAILY ferrous sulfate [Iron (ferrous sulfate)] 325 mg (65 mg iron) tablet 1 tab PO BID sertraline 50 mg tablet 1 tab PO BEDTIME atorvastatin 80 mg tablet 80 mg PO BEDTIME pantoprazole 40 mg tablet,delayed release (DR/EC) 40 mg PO BID@0630,1630 magnesium oxide 400 mg (241.3 mg magnesium) tablet 400 mg PO BID ergocalciferol (vitamin D2) 1,250 mcg (50,000 unit) capsule 1,250 mcg PO [place] metformin 850 mg tablet 850 mg PO BID ipratropium-albuterol 0.5 mg-3 mg(2.5 mg base)/3 mL solution for nebulization 3 ml inhalation Q4H PRN (Reason: wheezing) theophylline 400 mg tablet extended release 24 hr 400 mg PO DAILY isosorbide mononitrate 30 mg tablet extended release 24 hr 30 mg PO DAILY nitroglycerin 0.4 mg tablet, sublingual 0.4 mg sublingual Q5M PRN (Reason: Chest Pain) metoprolol succinate 25 mg tablet extended release 24 hr 25 mg PO DAILY ezetimibe 10 mg tablet 10 mg PO DAILY Combivent Respimat 20-100 mcg/actuation mist 1 puff PO Q4H PRN (Reason: SOB/wheezing) cetirizine 10 mg Tablet 10 mg PO DAILY PRN (Reason: Allergy Symptoms) acetaminophen 500 mg Tablet 500 mg PO Q6H PRN (Reason: Fever/Pain) albuterol sulfate 90 mcg/actuation Hfa Aerosol Inhaler 2 puff INHALATION Q4H PRN (Reason: Shortness Of Breath Or Wheezing) azelastine-fluticasone 137-50 mcg/spray Amawalk,Non-Aerosol 1 spray INTRANASAL BID Rx Instructions: administer into each nostril aspirin 81 mg tablet,delayed release (DR/EC) 81 mg PO DAILY furosemide [Lasix] 20 mg tablet 20 mg PO DAILY PRN (Reason: Heart failure symptoms) Discharge Orders: Discharge Order (Routine); Ordered 04/03/25 Ordered By: Andrés De La Rosa Diet: Advance to usual diet Activity on Discharge: As tolerated Stand Alone Forms: Patient Portal Discharge page Print Language: [place] Irish Care Plan Goals: manage copd Health Concerns: copd Plan of Treatment: 5 days prednisone, rehab Assessment: see above
[2025-04-03 11:18] LABS: Glucose, Whole Blood 210 mg/dL (60-115)
[2025-04-03 11:20] VITALS: PULSE 72; RESP 18; O2SAT 95
[2025-04-03] MEDS: oxyBUTYnin chloride ER 5 MG TAB.ER.24 10 MG PO (12:40)
[2025-04-03 13:19] VITALS: BP 118/54; PULSE 78; RESP 18; TEMP 36.6; O2SAT 92
== END 2025-04-03 13:35 | disposition skilled nursing facility (03) | DRG 190 ==
LOC: HO.ED 15:59 → HO.EDOVER 16:21 → HO.S3 19:25
PROVIDERS: Family Medicine; Admitting Provider Hospitalist; Emergency Provider Emergency Medicine Emergency Medical Services; PCP Student in an Organized Health Care Education/Training Program; Visit Provider Internal Medicine
DX: J44.1 Chronic obstructive pulmonary disease with (acute) exacerbation (principal); J96.21 Acute and chronic respiratory failure with hypoxia; I50.32 Chronic diastolic (congestive) heart failure; J45.41 Moderate persistent asthma with (acute) exacerbation; I25.10 Atherosclerotic heart disease of native coronary artery without angina pectoris; Z20.822 Contact with and (suspected) exposure to COVID-19; E11.65 Type 2 diabetes mellitus with hyperglycemia; Z95.5 Presence of coronary angioplasty implant and graft; Z99.81 Dependence on supplemental oxygen; Z79.82 Long term (current) use of aspirin; Z79.84 Long term (current) use of oral hypoglycemic drugs; Z79.899 Other long term (current) drug therapy
CPT/HCPCS: 36415; 71045; 80048; 80053; 81001; 82803; 82947; 83036; 83605; 83690; 83735; 83880; 84145; 84484; 85025; 85027; 87040; 87633; 87637; 93005; 94640; 97116; 97162; 99221; 99285; J1650; J2919

== ENCOUNTER → 2025-03-30 10:21 | Outpatient (BNV) | payer MEDICARE, MEDICAID, SELFPAY | PROVIDERS: Admitting Provider Hospitalist; Emergency Provider Emergency Medicine Emergency Medical Services; PCP Student in an Organized Health Care Education/Training Program; Visit Provider Internal Medicine Cardiovascular Disease | DX: I44.4 Left anterior fascicular block (principal); R00.0 Tachycardia, unspecified | CPT/HCPCS: 93010 ==

== ENCOUNTER → 2025-03-30 10:22 | Outpatient (BNV) | payer MEDICARE, MEDICAID, SELFPAY | PROVIDERS: Emergency Provider Emergency Medicine Emergency Medical Services; PCP Student in an Organized Health Care Education/Training Program; Visit Provider Radiology Diagnostic Radiology | DX: R06.02 Shortness of breath (principal) | CPT/HCPCS: 71045 ==

== ENCOUNTER → 2025-03-30 16:13 | Outpatient (BNV) | payer MEDICARE, MEDICAID, SELFPAY | PROVIDERS: Admitting Provider Hospitalist; Emergency Provider Emergency Medicine Emergency Medical Services; PCP Student in an Organized Health Care Education/Training Program; Visit Provider Hospitalist | DX: J44.1 Chronic obstructive pulmonary disease with (acute) exacerbation (principal) | CPT/HCPCS: 99223; 99232; 99239 ==

== ENCOUNTER 2025-05-15 10:38 | Emergency (ER) | payer MEDICARE, MEDICAID, SELFPAY ==
--- NOTE | ~2025-05-15 | XR_ITS ---
EXAMINATION: XR CHEST 1 VIEW HISTORY: Shortness of breath, hypoxia R/O pneumonia, CHF COMPARISON: Comparison is made with the prior examination dated 03/30/2025. FINDINGS: A single AP portable view of the chest performed at 12:31 PM is submitted. The lungs are expanded and clear. There is no pleural effusion, pneumothorax, or pulmonary vascular congestion. The heart is normal in size. There is calcification of the aortic knob. The bones are intact. XR/XR chest 1V IMPRESSION: No acute cardiopulmonary abnormality. Electronically signed by: Ricky Fuller MD 05/15/2025 12:32 PM EDT
[2025-05-15 10:46] VITALS: BP 136/61; BP 158/90; PULSE 81; RESP 22; TEMP 36.1; O2SAT 90; O2SAT 95; BMI 34.3
--- NOTE | 2025-05-15 10:59 | ED.GENADULT ---
HPI - General Adult General Chief complaint: General Medical Stated complaint: NECK PAIN FOR 3 DAYS Time Seen by Provider: 05/15/25 10:59 Source: patient Mode of arrival: EMS Limitations: no limitations History of Present Illness ED Provider: Dr. Mikey Irene HPI narrative: 75-year-old female with a history of diabetes mellitus, pulmonary hypertension, coronary artery disease, MA, congestive heart failure, MRSA, depression, anxiety who presents emergency department for evaluation of 3 days of right-sided neck pain, 1 day of bilateral scapular pain left greater than right and increased dyspnea on exertion shortness of breath above her baseline. Patient states that 3 days ago she woke up with pain in the right side of her neck. She states the pain start behind her ear and radiates to her right shoulder. Pain is worse with movement. She states the pain is gotten progressively worse and the pain is now 8/10. She states that over the last 24 hours she has also developed pain in both her left and right shoulder blade area left being greater than right. This has a constant, dull pain. Patient states that she has had increased shortness of breath and increased dyspnea above her baseline for the last 3 days. Patient does wear 2 L of oxygen chronically but she states she has not have a portable O2 tank and has been getting short of breath at home when she is not wearing her oxygen. She states she has been housebound since she can not leave without oxygen. Patient's visiting nurse post concerned about her symptoms especially your shortness of breath and sent her to the emergency department by ambulance. She denied fever, chills, headache, change in vision, nausea, vomiting, diarrhea, dark stools, bloody stools, abdominal pain, frequency, urgency or dysuria. Related Data Home Medications ?Medication ?Instructions ?Recorded ?Confirmed cyanocobalamin (vitamin B-12) 1 tab PO DAILY 08/12/20 03/30/25 1,000 mcg tablet (Vitamin B-12) ferrous sulfate 325 mg (65 mg 1 tab PO BID 08/12/20 03/30/25 iron) tablet (Iron (ferrous sulfate)) oxybutynin chloride 10 mg 1 tab PO DAILY@1200 08/12/20 03/30/25 tablet,extended release 24 hr sertraline 50 mg tablet 1 tab PO BEDTIME 08/12/20 03/30/25 trazodone 50 mg tablet 1 tab PO BEDTIME 08/12/20 03/30/25 aspirin 81 mg tablet,delayed 81 mg PO DAILY 03/11/22 03/30/25 release atorvastatin 80 mg tablet 80 mg PO BEDTIME 04/06/24 03/30/25 pantoprazole 40 mg tablet,delayed 40 mg PO BID@0630,1630 04/06/24 03/30/25 release ergocalciferol (vitamin D2) 1,250 1,250 mcg PO BRADFORD 05/29/24 03/30/25 mcg (50,000 unit) capsule magnesium oxide 400 mg (241.3 mg 400 mg PO BID 05/29/24 03/30/25 magnesium) tablet furosemide 20 mg tablet (Lasix) 20 mg PO DAILY PRN Heart failure 01/11/25 03/30/25 symptoms ezetimibe 10 mg tablet 10 mg PO DAILY 02/23/25 03/30/25 ipratropium 0.5 mg-albuterol 3 mg 3 ml inhalation Q4H PRN wheezing 02/23/25 03/30/25 (2.5 mg base)/3 mL nebulization soln ipratropium 20 mcg-albuterol 100 1 puff PO Q4H PRN SOB/wheezing 02/23/25 03/30/25 mcg/actuation mist for inhalation (Combivent Respimat) isosorbide mononitrate 30 mg 30 mg PO DAILY 02/23/25 03/30/25 tablet,extended release 24 hr metformin 850 mg tablet 850 mg PO BID 02/23/25 03/30/25 metoprolol succinate 25 mg 25 mg PO DAILY 02/23/25 03/30/25 tablet,extended release 24 hr nitroglycerin 0.4 mg sublingual 0.4 mg sublingual Q5M PRN Chest 02/23/25 03/30/25 tablet Pain theophylline 400 mg 400 mg PO DAILY 02/23/25 03/30/25 tablet,extended release 24 hr acetaminophen 500 mg tablet 500 mg PO Q6H PRN Fever/Pain 03/30/25 03/30/25 albuterol sulfate 90 mcg/actuation 2 puff inhalation Q4H PRN 03/30/25 03/30/25 aerosol inhaler Shortness Of Breath Or Wheezing azelastine 137 mcg-fluticasone 50 1 spray intranasal BID 03/30/25 03/30/25 mcg/spray nasal spray cetirizine 10 mg tablet 10 mg PO DAILY PRN Allergy Symptoms 03/30/25 03/30/25 Previous Rx's ?Medication ?Instructions ?Recorded walker #1 ea 10/13/21 ibuprofen 600 mg tablet 600 mg PO Q8H PRN pain 10 days #20 10/25/22 tabs fluticasone fur. 200 mcg-umeclid 1 ea PO DAILY #60 ea 03/14/25 62.5 mcg-vilant 25 mcg inhalat.powder (Trelegy Ellipta) evolocumab 140 mg/mL subcutaneous 140 mg subcut Q2W #6 mL 03/30/25 pen injector (Repatha SureClick) prednisone 20 mg tablet 40 mg (2 x 20 mg) PO DAILY #10 tabs 04/03/25 Allergies Allergy/AdvReac Type Severity Reaction Status Date / Time amoxicillin Allergy Difficulty Verified 05/15/25 10:48 Breathing levofloxacin (From Levaquin) AdvReac Intermediate Muscle Pain Verified 05/15/25 10:48 Pain Med Sensitivity Allergy Unknown none Uncoded 05/15/25 10:48 Review of Systems Review of Systems: Yes all other systems are reviewed and are negative PMFSH Past Medical History Medical History CHF (congestive heart failure) Supplemental oxygen dependent Personal history of nicotine dependence Asthma-COPD overlap syndrome Pulmonary hypertension Acute exacerbation of congestive heart failure Acute respiratory failure with hypoxia Pneumonia Hyperlipidemia MRSA (methicillin resistant Staphylococcus aureus) Anxiety and depression History of blood transfusion Myocardial infarct Diarrhea Arthritis Diabetes GERD (gastroesophageal reflux disease) Coronary artery disease Surgical History Hx of colonoscopy Hx of tonsillectomy Hx of cholecystectomy H/O: hysterectomy History of total right knee replacement (TKR) History of cardiac catheterization Family History Family History Father Colon cancer Social History Social History Household Members: Children Housing: Apartment Are you a primary care worker to a significant other at home: No Do you presently have visiting nurse or other home services: Yes Unable to assess alcohol history related to: Unable to respond Alcohol intake: unknown Patient Tobacco Use Status: Former Tobacco user Tobacco use type: Cigarette Years Smoked: 40 e-Cigarette/Vaping Use: Never Used Second Hand Smoke Exposure: No Advance Directives: Yes Advance Directives on File: Yes Advance Directives Date on File: 12/25/21 Do you have a plan to hurt others: No Plan service: No Current occupational status: retired Physical Exam ED Vital Signs: Vital Signs - 24 hr 05/15/25 10:46 05/15/25 14:51 Temperature 96.9 F 97.7 F Pulse Rate 81 72 Respiratory Rate 22 H 15 Blood Pressure 136/61 161/70 H Pulse Oximetry 90 L 96 Oxygen Delivery Method Nasal Cannula Nasal Cannula Oxygen Flow Rate 4 BMI result Body Mass Index 34.3 Vital signs revealed an elevated respiratory rate of 22 otherwise unremarkable Exam: General: Awake, alert in no distress Head: Normocephalic, atraumatic EENT: PERRL, Lids normal, sclera normal, conjunctiva normal, nose normal , ears normal, throat without erythema or exudates Neck: Tenderness palpation of trapezius muscles bilaterally right greater than left with limited range of motion of her head secondary to pain with minimal movement, no tenderness palpation over the temporal artery regions of her scalp, no point tenderness over C-spine, no adenopathy Lung: breath sounds symmetric, no wheezing, rales or rhonchi Chest: symmetric movement, nontender Heart: regular rate and rhythm, normal S1, S2 no murmurs or rubs Abdomen: soft, non-tender, nondistended, normal bowel sounds Back: no vertebral tenderness, no CVAT, patient does have tenderness palpation of her trapezius muscles bilaterally along the scapular region, no rashes or lesions noted Extremities: no deformities, moves all extremities symmetrically Neuro: Awake, alert, oriented, normal speech, cranial nerves intact, moves all extremities symmetrically Psych: Pleasant, cooperative Medications Administered Discontinued Medications Generic Name Dose Route Start Last Admin Trade Name Freq PRN Reason Stop Dose Admin Acetaminophen 975 mg 05/15/25 11:35 05/15/25 12:03 Acetaminophen 325 Mg Tablet PO 05/15/25 11:36 975 mg ONCE STA Administration Cyclobenzaprine HCl 5 mg 05/15/25 14:40 05/15/25 14:46 Cyclobenzaprine Hcl 5 Mg Tablet PO 05/15/25 14:41 5 mg ONCE ONE Administration Ketorolac Tromethamine 15 mg 05/15/25 11:35 05/15/25 12:04 Ketorolac Tromethamine 15 Mg/Ml Vial IVPUSH 05/15/25 11:36 15 mg ONCE STA Administration Medical Decision Making Medical Decision Making [facility] Narrative: 75-year-old female with a history of diabetes mellitus, pulmonary hypertension, coronary artery disease, MA, congestive heart failure, MRSA, depression, anxiety who presents emergency department for evaluation of 3 days of right-sided neck pain, 1 day of bilateral scapular pain left greater than right and increased dyspnea on exertion shortness of breath above her baseline. Patient states that 3 days ago she woke up with pain in the right side of her neck. She states the pain start behind her ear and radiates to her right shoulder. Pain is worse with movement. She states the pain is gotten progressively worse and the pain is now 8/10. She states that over the last 24 hours she has also developed pain in both her left and right shoulder blade area left being greater than right. This has a constant, dull pain. Patient states that she has had increased shortness of breath and increased dyspnea above her baseline for the last 3 days. Patient does wear 2 L of oxygen chronically but she states she has not have a portable O2 tank and has been getting short of breath at home when she is not wearing her oxygen. She states she has been housebound since she can not leave without oxygen. Patient's visiting nurse post concerned about her symptoms especially your shortness of breath and sent her to the emergency department by ambulance. She denied fever, chills, headache, change in vision, nausea, vomiting, diarrhea, dark stools, bloody stools, abdominal pain, frequency, urgency or dysuria. Vital signs revealed an elevated respiratory rate with a an O2 saturation of 90% on 2 L of oxygen via nasal cannula. Neck exam did reveal tenderness palpation of the trapezius muscles bilaterally as well as the trapezius muscles over the scapular region bilaterally. She has a limited range of motion of her neck secondary to pain. Exam was otherwise unremarkable. Differential diagnosis: ?Includes but is not limited to neck sprain, neck strain, giant cell arteritis, pneumonia, congestive heart failure, flare-up of chronic respiratory disease, anemia, electrolyte abnormalities Course: 14:40 My independent interpretation patient's laboratory evaluation is as follows: Normocytic anemia with an H&H of 11.1 and 34.7, most likely anemia chronic disease. CRP elevated 3.72, ESR elevated 38-although these are values are slightly elevated therefore I doubt that she has giant cell arteritis. High sensitive troponin I was detectable but not elevated at 3.3-repeat is due now. Patient had no relief of her pain from IV Toradol therefore she was ordered Flexeril 5 mg orally. 16:58 Repeat troponin was below detectable limits. This is reassuring suggesting that the patient's symptoms are not related to myocardial injury and I did discuss this with the patient and the patient's family. Patient's symptoms are consistent with musculoskeletal strain of her neck muscles. Patient was advised to take ibuprofen and Tylenol for pain . She was also prescribed Flexeril 5 mg q.12 hours as needed for pain and spasm. She was given printed and verbal instructions and discharged home. Differential Diagnosis Differential Diagnoses: The differential diagnosis associated with the presentation includes (See above) Admission/Observation Consideration of admission/observation: Escalation of care including admission/observation considered (Yes) Lab Data MDM Lab Attestation statement: I reviewed the patient's lab results. 05/15/25 11:59 05/15/25 11:59 Labs: Lab Results 05/15/25 05/15/25 05/15/25 Range/Units 11:59 12:05 14:49 WBC 9.4 (4.8-10.8) X10*3/uL RBC 3.96 L (4.20-5.50) X10*6/uL Hgb 11.1 L D (12.0-16.0) g/dl Hct 34.7 L D (37.0-47.0) % MCV 87.6 (80.0-98.0) fL MCH 28.0 (27.0-33.0) pg MCHC 32.0 (31.0-35.0) g/dl RDW 16.3 H (11.0-16.0) % Plt Count 265 (160-400) X10*3/uL MPV 9.6 (9.4-12.3) fL Immature Gran % (Auto) 0.9 H (0.0-0.4) % Neut % (Auto) 78.8 H (45-73) % Lymph % (Auto) 12.3 L (20-40) % [place] % (Auto) 7.6 (2-11) % Eos % (Auto) 0.0 (0-4) % Baso % (Auto) 0.4 (0-2) % Lymph # (Auto) 1.2 (1.2-4.9) X10*3/uL [place] # (Auto) 0.7 (0.1-1.2) X10*3/uL Eos # (Auto) 0.0 (0.0-0.4) X10*3/uL Baso # (Auto) 0.0 (0.0-0.2) X10*3/uL Abs Immat Gran (auto) 0.08 H (0.00-0.03) X10*3/uL Absolute Neuts (auto) 7.4 (2.0-8.3) x10*3/uL Absolute Nucleated RBC 0.000 (0.0-0.012) X10*3/uL Nucleated RBC % (auto) 0.0 (0.0-0.2) /100WBC ESR 38 H (0-20) MM/HR VBG pH 7.44 H (7.32-7.43) VBG pCO2 37 mmHg VBG pO2 57 mmHg VBG HCO3 25 (22-26) mmol/L VBG O2 Saturation 81.0 % VBG Base Excess 1.9 mmol/L Sodium 143 (135-145) mmol/L Potassium 4.1 (3.3-5.1) mmol/L Chloride 109 H (96-108) mmol/L Carbon Dioxide 24 (22-29) mmol/L Anion Gap 14 (12-20) BUN 16 (9-16) mg/dL Creatinine 0.75 (0.5-1.4) mg/dL Estim Creat Clear Calc 64.0 Estimated GFR > 60 Random Glucose 99 (60-115) mg/dL Calcium 9.2 (8.4-10.2) mg/dL Total Bilirubin 0.5 (0.0-1.0) mg/dL AST 26 (5-31) U/L ALT 9 (0-31) U/L Alkaline Phosphatase 97 (39-117) U/L Troponin I High Sens 3.3 D < 2.7 (<3.5-17.0) ng/L C-Reactive Protein 3.72 H (< or = 0.50) mg/dL B-Natriuretic Peptide 116 H (<100) pg/mL Total Protein 7.1 (6.5-8.0) g/dL Albumin 4.3 (3.5-5.0) g/dL Lipase 12 (8-78) U/L Independent Interpretation I performed an independent interpretation of an: EKG Interpretation: My independent interpretation patient's 12 EKG done on 05/15/2025 at 11:43 hours is as follows: Normal sinus rhythm rate of 78, normal OH interval and QRS duration, prolonged QTC of 487 milliseconds, inverted T-waves in lead 3 and V1, no ST segment elevation, no ST segment depression, no PACs, no PVCs. Compared to EKG dated 03/30/2025 at 10:37 hours patient was tachycardic on the previous EKG and had a similar QTC elevation of 473 milliseconds otherwise no other acute changes My interpretation of the patient's one-view chest x-ray is as follows: No acute disease, no change compared to 03/30/2025. Radiology Impression Discussion of test interpretation with radiology: I have reviewed the radiologist's reading. Radiologist Impression: XR chest 1V IMPRESSION: No acute cardiopulmonary abnormality. Electronically signed by: Ricky Fuller MD 05/15/2025 12:32 PM EDT Independent Historian Clinical information obtained from an independent historian. History obtained from or confirmed by: Other (Daughter) External Record Review External record reviewed: Inpatient record Prescription Management I considered prescription management with: Other Anti spasmodic: Flexeril Chronic Conditions Patient?s care impacted by: Diabetes and Other (Coronary artery disease, pulmonary hypertension) Critical Care Time Critical Care Time Critical Care Time: Yes Total Critical Care Time: 45 Attestation: Critical Care: The patient was critically ill with a high probability of imminent or life threatening deterioration. I spent greater than 30 minutes of discontinuous time evaluating the patient,delivering critical care at the bedside, discussing and evaluating pertinent data with consultants. Critical care time does not include time spent performing separately billable procedures or teaching. Total time spent performing critical care was 45 minutes. Discharge Plan Discharge Clinical Impression: Acute strain of neck muscle, Shortness of breath, COPD exacerbation Patient Disposition: Home, Self-Care Additional Instructions: Your chest x-ray was unremarkable. Your EKG was unremarkable. Your high sensitive troponin I (marker of heart attack) was not elevated initially and repeat was also not elevated which is reassuring suggesting that you shortness of breath and neck pain is not caused by heart attack/heart injury Your neck pain is most likely secondary to a strain of the muscles of your neck. Your shortness of breath is most likely caused by a flare-up of your COPD. Take ibuprofen 200 mg pills, 2 pills every 6 hours as needed for pain or fever. Take Tylenol (acetaminophen) 500 mg pills, 2 pills every 6 hours as needed for pain or fever. Take Flexeril (cyclobenzaprine) 5 mg pills, 1 pill every 12 hours as needed for pain or spasm. ?This medication will make you sleepy. ?Do not drive or work while taking this medication. Follow-up with your doctor in 2 days. Please return to the emergency department if your symptoms get worse or if you develop any symptoms that are concerning to you. Prescriptions: No Action (DME) juanita Misc See Rx Instructions .MEDSUPPLY Qty: 1 0RF Rx Instructions: Folding Front wheeled walker ibuprofen 600 mg tablet 600 mg PO Q8H PRN (Reason: pain) 10 Days Qty: 20 0RF Trelegy Ellipta 200-62.5-25 mcg blister with device 1 ea PO DAILY Qty: 60 6RF Repatha SureClick 140 mg/mL pen injector 140 mg subcut Q2W Qty: 6 3RF trazodone 50 mg tablet 1 tab PO BEDTIME oxybutynin chloride 10 mg tablet extended release 24hr 1 tab PO DAILY@1200 cyanocobalamin (vitamin B-12) [Vitamin B-12] 1,000 mcg tablet 1 tab PO DAILY ferrous sulfate [Iron (ferrous sulfate)] 325 mg (65 mg iron) tablet 1 tab PO BID sertraline 50 mg tablet 1 tab PO BEDTIME atorvastatin 80 mg tablet 80 mg PO BEDTIME pantoprazole 40 mg tablet,delayed release (DR/EC) 40 mg PO BID@0630,1630 magnesium oxide 400 mg (241.3 mg magnesium) tablet 400 mg PO BID ergocalciferol (vitamin D2) 1,250 mcg (50,000 unit) capsule 1,250 mcg PO BR[place]FORD metformin 850 mg tablet 850 mg PO BID ipratropium-albuterol 0.5 mg-3 mg(2.5 mg base)/3 mL solution for nebulization 3 ml inhalation Q4H PRN (Reason: wheezing) theophylline 400 mg tablet extended release 24 hr 400 mg PO DAILY isosorbide mononitrate 30 mg tablet extended release 24 hr 30 mg PO DAILY nitroglycerin 0.4 mg tablet, sublingual 0.4 mg sublingual Q5M PRN (Reason: Chest Pain) metoprolol succinate 25 mg tablet extended release 24 hr 25 mg PO DAILY ezetimibe 10 mg tablet 10 mg PO DAILY Combivent Respimat 20-100 mcg/actuation mist 1 puff PO Q4H PRN (Reason: SOB/wheezing) cetirizine 10 mg Tablet 10 mg PO DAILY PRN (Reason: Allergy Symptoms) acetaminophen 500 mg Tablet 500 mg PO Q6H PRN (Reason: Fever/Pain) albuterol sulfate 90 mcg/actuation Hfa Aerosol Inhaler 2 puff INHALATION Q4H PRN (Reason: Shortness Of Breath Or Wheezing) azelastine-fluticasone 137-50 mcg/spray [place],Non-Aerosol 1 spray INTRANASAL BID Rx Instructions: administer into each nostril prednisone 20 mg tablet 40 mg PO DAILY Qty: 10 0RF aspirin 81 mg tablet,delayed release (DR/EC) 81 mg PO DAILY furosemide [Lasix] 20 mg tablet 20 mg PO DAILY PRN (Reason: Heart failure symptoms) Print Language: Bulgarian
--- NOTE | 2025-05-15 11:38 | ECG_ITS ---
Test Reason : SOB,NECK PAIN Blood Pressure : */* mmHG Vent. Rate : 78 BPM Atrial Rate : 78 BPM P-R Int : 156 ms QRS Dur : 88 ms QT Int : 428 ms P-R-T Axes : 46 -21 8 degrees QTcB Int : 487 ms Normal sinus rhythm Normal ECG When compared with ECG of 30-Mar-2025 10:37, No significant change was found Referred By: Mikey Irene Electronically Signed By: TROY ULRICH MD
[2025-05-15 12:05] LABS: MANUAL DIFF FLAG NO
[2025-05-15 12:07] LABS: Hematocrit 34.7 % (37.0-47.0); Hemoglobin 11.1 g/dl (12.0-16.0); Imm Gran Abs Auto 0.08 X10*3/uL (0.00-0.03); Imm Gran Pct Auto 0.9 % (0.0-0.4); Lymphocytes Absolute Auto 1.2 X10*3/uL (1.2-4.9); Mean Corpuscular HGB Conc 32.0 g/dl (31.0-35.0); Mean Corpuscular Hemoglobin 28.0 pg (27.0-33.0); Mean Corpuscular Volume 87.6 fL (80.0-98.0); NRBC Abs Auto 0.000 X10*3/uL (0.0-0.012); NRBC Pct Auto 0.0 /100WBC (0.0-0.2); Platelet Count 265 X10*3/uL (160-400); Red Blood Count 3.96 X10*6/uL (4.20-5.50); White Blood Count 9.4 X10*3/uL (4.8-10.8)
[2025-05-15 12:08] LABS: Venous Blood Gas Refer to POC result
[2025-05-15 12:09] LABS: VBG HCO3 25 mmol/L (22-26); VBG O2 % Saturation 81.0 %
[2025-05-15 12:27] LABS: B Type Natriuretic Peptide 116 pg/mL (<100)
[2025-05-15 12:30] LABS: Alanine Aminotransferase 9 U/L (0-31); Albumin Level 4.3 g/dL (3.5-5.0); Alkaline Phosphatase 97 U/L (39-117); Anion Gap 14 (12-20); Aspartate Amino Transferase 26 U/L (5-31); Blood Urea Nitrogen 16 mg/dL (9-16); Calcium 9.2 mg/dL (8.4-10.2); Carbon Dioxide 24 mmol/L (22-29); Chloride 109 mmol/L (96-108); Creatinine Clr Calc Pharmacy 64.0; Estimated Glomerular Filt Rate > 60; Lipase 12 U/L (8-78); Potassium 4.1 mmol/L (3.3-5.1); Sodium 143 mmol/L (135-145); Total Protein 7.1 g/dL (6.5-8.0)
[2025-05-15 12:31] LABS: Troponin-I High Sensitivity 3.3 ng/L (<3.5-17.0)
--- OUTSIDE RECORDS SUMMARY | 2025-05-15 13:50 | XMS_ITS | Encounter Summary ---
Author Organization [email or web address] Address [address] [place] [address] Care Team Providers Care Scrap Cutter Name Role Phone Estrella Brunner MD Primary Care Provider [phone] Encounter Details Date Type Department Care Team (Late st Contact Info) Description 03/21/2025 Orders Only [facility] [address] [place], [place] [id number] ProviderYolanda MD Social History Tobacco Use Types Packs/Day Years [...] Care Team (Late st Contact Info) Description 05/22/2025 10:00 AM EDT Medication Management [facility] [address] [place] [address] Lauren Patel PharmD [address] [place] [address] 07/12/2025 10:00 AM EST Office Visit [facility] [address] [place] [address] Mary Kate Kerr OD [address] [place] [address] documented as of this encounter Procedures Procedure Name Priority Date/Time Associated Diagnosis Comments URINALYSIS, COMPLETE Routine 03/15/2025 11:42 AM EDT documented in this encounter Results * Urinalysis Complete (03/15/2025 11:42 AM EDT) Urine (Urine, Random) us Historical Provider LAB URINE ORDERABLES Barbi l Result documented in this encounter Visit Diagnoses Not on filedocumented in this encounter Additional Health Concerns Assessment Noted Time PHQ-9 Depression Total Score: 1 04/29/20 23 10:40 AM EDT documented as of this encounter Care Teams Scrap Cutter Relationship Specialty Start Date End Date Estrella Brunner MD [address] [place] [address] PCP - General Family [facility] documented as of this encounter
--- OUTSIDE RECORDS SUMMARY | 2025-05-15 13:50 | XMS_ITS ---
Author Organization [facility] Care Team Providers Care Multimedia Designer Name Role Phone Dayron Lovell Unavailable Unavailable Tiffany Tyson Unavailable Unavailable Levheim, Beatriz Unavailable Unavailable Allergies and adverse reactions No Known Allergies Care Team Name Role Address Phone Organization Dates Dayron Lovell PCP [address], [address], [facility] (Office): : [facility] 11/17/2021 - 11/24/2021 Tiffany Tyson [address], [address], [facility] (Office): : [facility] 11/17/2021 - 11/24/2021 Beatriz Garcia [address], [address], [facility] (Office): [facility] 11/17/2021 - 11/24/2021 Functional Status Warning: Section unavailable due to inability to retrieve data. Immunizations Immunization Status Vaccine Details Vaccine Code CodeSystem Jose E e Notes SARS-COV-2 (COVID-19) completed SARS-COV-2 (COVID-19) vaccine, mRNA, spike protein, LNP, preservative free, 100 mcg/0.5mL dose or 50 mcg/0.25mL dose Step 1 of Multi-step with next step required 207 CVX created date: 11/14/2021 administered date: 10/16/2021 SARS-COV-2 (COVID-19) completed SARS-COV-2 (COVID-19) vaccine, mRNA, spike protein, LNP, preservative free, 100 mcg/0.5mL dose or 50 mcg/0.25mL dose Step 1 of Multi-step with next step required 207 CVX created date: 11/14/2021 administered date: 12/03/2020 SARS-COV-2 (COVID-19) completed SARS-COV-2 (COVID-19) vaccine, mRNA, spike protein, LNP, preservative free, 100 mcg/0.5mL dose or 50 mcg/0.25mL dose Step 1 of Multi-step with next step required 207 CVX created date: 11/14/2021 administered date: 11/05/2020 Mental Status Section Date Assessment Total Score Description 11/24/2021 BIMS 15 cognitively int act CAM 0 No delirium ind icated PHQ-9 00 11/14/2021 CAM 0 No delirium ind icated Problems Problem # Description Date of onset Resolved Date Code CodeSystem Concern Status 1 ACUTE ON CHRONIC DIASTOLIC (CONGESTIVE) HEART FAILURE 11/17/[address] active 2 CHRONIC OBSTRUCTIVE PULMONARY DISEASE WITH (ACUTE) EXACERBATION 11/17/[address] active 3 AFTERCARE FOLLOWING JOINT REPLACEMENT SURGERY 11/14/[address] active 4 ESSENTIAL (PRIMARY) HYPERTENSION 11/14/[address] active 5 GASTRO-ESOPHAGEAL REFLUX DISEASE WITHOUT ESOPHAGITIS 11/14/[address] active 6 HYPERLIPIDEMIA, UNSPECIFIED 11/14/[address] active 7 MAJOR DEPRESSIVE DISORDER, SINGLE EPISODE, UNSPECIFIED 11/14/[address] active 8 PRESENCE OF LEFT ARTIFICIAL KNEE JOINT 11/14/[address] active 9 TYPE 2 DIABETES MELLITUS WITHOUT COMPLICATIONS 11/14/[address] active 10 UNILATERAL PRIMARY OSTEOARTHRITIS, LEFT KNEE 11/14/[address] active Reason for Referral No Reasons for Referral Entered Social History Social History Observation Description Start Date End Date Code Code System Current Smoking Status Tobacco smoking consumption unknown 258174737 SNOMED CT Sex Assigned At Female 1950 10948-2 [facility] Gender Identity Sexual Orientation Vital Signs Code Code System Vitals Name Values and Units Timing Information 64585-9 [facility] Pain Level Value=0.0 11/25/2021 2339-0 [facility] Blood Sugar Cplpc=478.0 Units=mg/dL 11/24/2021 9279-1 [facility] Respiratory Rate Value=18.0 Units=/m in 11/24/2021 33467-2 [facility] O2 % dC Oximetry Value=98.0 Units= % 11/24/2021 8462-4 [facility] Blood Pressure-Diastolic Value=62 Un its=mmHg 11/23/2021 8480-6 [facility] Blood Pressure-Systolic Fnriu=443 Un its=mmHg 11/23/2021 8867-4 [facility] Heart rate Value=72.0 Units=/min 8310-5 [facility] Body Temperature Value=97.2 Units= F 11/23/2021 63889-0 [facility] Weight Ejxyh=310.6 Units=Lbs 8302-2 [facility] Height Value=62.0 Units=Inches 11/17/2021
--- OUTSIDE RECORDS SUMMARY | 2025-05-15 13:50 | XMS_ITS | Clinical Summary ---
Author Organization [facility] Address [address] [place] [address] Phone Care Team Providers Care Account Support Manager Name Role Phone Unavailable Primary Care [...] and evening 2 Active ergocalciferol 1.25 MG (07741 UT) capsule TAKE 1 CAPSULE BY MOUTH ONCE WEEKLY ON WEDNESDAY MORNING 12 capsule 1 4 Active MAGnesium-Oxid e 400 (240 Mg) MG tablet TAKE 1 TABLET BY MOUTH TWICE DAILY IN THE MORNING AND IN THE EVENING 60 tablet 3 5 Active magnesium oxide 400 (240 Mg) MG tablet TAKE 1 TABLET BY MOUTH TWICE DAILY IN THE MORNING AND IN THE EVENING 60 tablet 3 5 025 Discontinued Active Problems Problem Noted Date Diagnosed Date Chronic kidney disease, stage 2 (mild) 5 Chronic kidney disease, stage 2 (mild) 3 [...] Encounters Date Type Department Care Team Description 05/02/2025 Refill [facility] [address] [place] [address] Alf Mendenhall MD from Last 3 Months [...] Sign Reading Time Taken Comments Blood Pressure 132/78 01/15/2025 1:17 PM EDT Pulse 80 01/15/2025 1:17 PM EDT Temperature - - Respiratory Rate - - Oxygen Saturation 91% 01/15/2025 1:17 PM EDT Inhaled Oxygen Concentration - - Weight 84.5 kg (186 lb 3.2 oz) 01/15/2025 1:17 P M EDT Height - - Body Mass Index - - Plan of Treatment Health Maintenance Due Date Last Done Comments Breast Cancer Screening 1950 Colorectal Cancer Screening: Annual FOBT 2000 Colorectal Cancer Screening: Colonoscopy 2000 Colorectal Cancer Screening: Sigmoidoscopy 2000 Diabetes: Ophthalmology Exam 12/26/2021 Diabetes: Pedal Pulse Checked 12/26/2021 Diabetes: Sensory Foot Exam 12/26/2021 Diabetes: Visual Foot Exam 12/26/2021 Diabetes: Hemoglobin A1C 03/28/2025 025, 06/08/2024, 01/10/2024, Additional history exists Influenza Vaccine (#1) 2025 , 06/30/2022, 07/09/2021, Additional history exists Hepatitis B Vaccine Aged Out 08/19/2007, 02/17/2007, 01/17/2007 No longer eligible based on patient's age to complete this topic Pneumococcal Vaccine: 50+ Years Completed 07/09/2017, 07/16/2016, 04/02/2014 Insurance [facility] Medicare [facility] Medicare
--- OUTSIDE RECORDS SUMMARY | 2025-05-15 13:50 | XMS_ITS | Encounter Summary ---
Author Organization [employer] Address [address] 7[address] [place] [address] Care Team Providers Care Regulatory Leader Name Role Phone Estrella Brunner MD Primary Care Provider [phone] Reason for Visit * Reason Onset Date Comments FYI 05/15/2025 Encounter Details Date Type Department Care Team ([facility] st Contact Info) Description 05/15/2025 Telephone [facility] MED & PEDS [address] [place], [place] [phone] Estrella Brunner MD [address] [place], [place] [address] FYI Social History Tobacco Use Types Packs/Day [...] encounter Miscellaneous Notes * Telephone Encounter - Ro Moncada RN - 05/15/2025 11:34 AM EDT Message below noted and will follow up after discharge. FYI.... Tc from [facility] with [facility] reporting that she sent pt to the ER via ambulance due to having neck and lower back pain radiating to her left arm. Pt oxygen would keep dropping. Contact mother at [phone] * Telephone Encounter - Jeevan Henao - 05/15/2025 11:29 AM EDT FYI.... Tc from [place] with [facility] reporting that she sent pt to the ER via ambulance due to having neck and lower back pain radiating to her left arm. Pt oxygen would keep dropping. Contact mother at [phone] documented in this encounter Plan of Treatment Upcoming Encounters Date Type Department Care Team (Late st Contact Info) Description 05/22/2025 10:00 AM EDT Medication Management [facility] CHC MED & PEDS [address] [place] [address] Lauren Patel, PharmD [address] [place] [address] 07/12/2025 10:00 AM EST Office Visit [facility] OPTOMETRY [address] [place] [address] Mary Kate Kerr, OD [address] [place] [address] documented as of this encounter Visit Diagnoses Not on filedocumented in this encounter Additional Health Concerns Assessment Noted Time PHQ-9 Depression Total Score: 1 04/29/20 23 10:40 AM EDT documented as of this encounter Care Teams Regulatory Leader Relationship Specialty Start Date End Date Estrella Brunner MD [address] [place] [address] PCP - General Family Medicine 08/17/12 [facility] 06/[facility] documented as of this encounter
--- OUTSIDE RECORDS SUMMARY | 2025-05-15 13:50 | XMS_ITS | Encounter Summary ---
Author Organization [email or web address] Address [address] [facility] 7t [place] [address] Care Team Providers Care Mortgage Servicing Specialist Name Role Phone Estrella Brunner MD Primary Care Provider [phone] Encounter Details Date Type Department Care Team ([facility] Contact Info) Description 01/14/2023 Orders Only [facility] CHC MED & PEDS [address] [place], [place] [phone] Linda Arellano LPN Social History Tobacco Use [...] Upcoming Encounters Date Type Department Care Team ([facility] Contact Info) Description 05/22/2025 10:00 AM EDT Medication Management [facility] CHC MED & PEDS [address] [place] [address] Lauren Patel, PharmD [address] [place] [address] 07/12/2025 10:00 AM EST Office Visit [facility] OPTOMETRY [address] [place] [address] Mary Kate Kerr, OD [address] [place] [address] documented as of this encounter Visit Diagnoses Not on filedocumented in this encounter Care Teams Mortgage Servicing Specialist Relationship Specialty Start Date End Date Estrella Brunner MD [address] [place], [place] [phone] PCP - General Family Medicine 08/17/12 [facility] documented as of this encounter
--- OUTSIDE RECORDS SUMMARY | 2025-05-15 13:50 | XMS_ITS | Encounter Summary ---
Author Organization [facility] Address [address] [facility] [address] [place] [address] Phone Care Team Providers Care Tubular Stock Glass Bulb Machine Former Name Role Phone Unavailable Primary Care Provider Unavailabl e Reason for Visit * Reason Comments Med Refill Encounter Details Date Type Department Care Team (Late st Contact Info) Description 11/16/2024 Refill [facility] [address] [place] [address] Alf Mendenhall MD [address] [facility] [address] [place] [phone] Social History Tobacco Use Types Packs/Day Years [...]
--- OUTSIDE RECORDS SUMMARY | 2025-05-15 13:50 | XMS_ITS | Encounter Summary ---
Author Organization [employer] Address [address] 7[address] [place] [address] Care Team Providers Care Burnisher And Bumper Name Role Phone Estrella Brunner MD Primary Care Provider [phone] Reason for Visit * Reason Onset Date Comments Nurse Triage 09/14/2024 Encounter Details Date Type Department Care Team ([facility] st Contact Info) Description 09/14/2024 Telephone [facility] MEDICINE [address] [place] [address] Estrella Brunner MD [address] [place], [place] [phone] Nurse Triage Social History Tobacco Use Types [...] t he electric, gas, oil or water [employer] threatened to shut off services in your [...] regarding elevated BS . Please advise [facility] Primary care team nurses of any [...] Description 05/22/2025 10:00 AM EDT Medication Management [facility] CHC MED & PEDS [address] [place] [address] Lauren Patel, PharmD [address] [place] [address] 07/12/2025 10:00 AM EST Office Visit [facility] OPTOMETRY [address] [place] [address] Mary Kate Kerr, OD [address] [place] [address] documented as of this encounter Visit Diagnoses Not on filedocumented in this encounter Additional Health Concerns Assessment Noted Time PHQ-9 Depression Total Score: 1 04/29/20 23 10:40 AM EDT documented as of this encounter Care Teams Burnisher And Bumper Relationship Specialty Start Date End Date Estrella Brunner MD [address] [place] [address] PCP - General Family Medicine 08/17/12 [facility] documented as of this encounter
--- OUTSIDE RECORDS SUMMARY | 2025-05-15 13:50 | XMS_ITS | Encounter Summary ---
Author Organization [employer] Address [address] 7[address] [place] [address] Care Team Providers Care Transfer Controller Name Role Phone Estrella Brunner MD Primary Care Provider [phone] Encounter Details Date Type Department Care Team (Latest Contact Info) Description 05/15/2025 Travel Social History Tobacco Use Types Packs/Day [...] Description 05/22/2025 10:00 AM EDT Medication Management [facility] CHC MED & PEDS [address] [place] [address] Lauren Patel PharmD [address] [place] [address] 07/12/2025 10:00 AM EST Office Visit [facility] OPTOMETRY [address] [place] [address] Mary Kate Kerr, OD [address] [place] [address] documented as of this encounter Visit Diagnoses Not on filedocumented in this encounter Additional Health Concerns Assessment Noted Time PHQ-9 Depression Total Score: 1 04/29/20 23 10:40 AM EDT documented as of this encounter Care Teams Transfer Controller Relationship Specialty Start Date End Date Estrella Brunner MD [address] [place] [address] PCP - General Family Medicine 08/17/12 [facility] 06/05/24 documented as of this encounter
--- OUTSIDE RECORDS SUMMARY | 2025-05-15 13:50 | XMS_ITS | Encounter Summary ---
Author Organization [employer] Address [address] [place] [address] Care Team Providers Care Operations Administrative Assistant Name Role Phone Estrella Brunner MD Primary Care Provider [phone] Reason for Visit * Reason Onset Date Comments Referral 12/15/2022 Encounter Details Date Type Department Care Team ([facility] st Contact Info) Description 12/15/2022 Telephone [facility]IC[facility] [address] [place] [address] Estrella Brunner MD [address] [place] [address] Referral Social History Tobacco Use Types Packs/Day [...] [facility] Please contact pt at [phone] documented in this encounter Plan of Treatment Upcoming Encounters Date Type Department Care Team (Late st Contact Info) Description 05/22/2025 10:00 AM EDT Medication Management [facility] CHC MED & PEDS [address] [place] [address] Lauren Patel PharmD [address] [place] [address] 07/12/2025 10:00 AM EST Office Visit [facility] OPTOMETRY [address] [place] [address] Mary Kate Kerr OD [address] [place] [address] documented as of this encounter Visit Diagnoses Not on filedocumented in this encounter Care Teams Operations Administrative Assistant Relationship Specialty Start Date End Date Estrella Brunner MD [address] [place] [address] PCP - General Family Medicine 08/17/12 [facility] documented as of this encounter
--- OUTSIDE RECORDS SUMMARY | 2025-05-15 13:50 | XMS_ITS | Encounter Summary ---
Author Organization [employer] Address [address] 7[address] [place] [address] Care Team Providers Care Fuel Buyer Name Role Phone Estrella Brunner MD Primary Care Provider [phone] Reason for Visit * Reason Onset Date Comments Verbal order 05/10/2025 Encounter Details Date Type Department Care Team ([facility] st Contact Info) Description 05/10/2025 Telephone [facility] MEDICINE 230 [place] [address] Estrella Brunner MD [address] [place], [place] [phone] Verbal order Social History Tobacco Use Types Packs/Day Years [...] encounter Miscellaneous Notes * Telephone Encounter - Saritha Paredes - 05/10/2025 12:21 PM EDT Tc from [facility] requesting a call back for verbal order for Nursing and go over pt medication Contact pt at [phone] documented in this encounter Plan of Treatment Upcoming Encounters Date Type Department Care Team (Late st Contact Info) Description 05/22/2025 10:00 AM EDT Medication Management [facility] CHC MED & PEDS 505 [place] [address] Lauren Patel, PharmD [address] [place] [address] 07/12/2025 10:00 AM EST Office Visit [facility] OPTOMETRY [address] [place] [address] Mary Kate Kerr, OD [address] [place] [address] documented as of this encounter Visit Diagnoses Not on filedocumented in this encounter Additional Health Concerns Assessment Noted Time PHQ-9 Depression Total Score: 1 04/29/20 23 10:40 AM EDT documented as of this encounter Care Teams Fuel Buyer Relationship Specialty Start Date End Date Estrella Brunner MD [address] [place] [address] PCP - General Family Medicine 08/17/12 [place] 06/05/24 documented as of this encounter
--- OUTSIDE RECORDS SUMMARY | 2025-05-15 13:50 | XMS_ITS | Encounter Summary ---
Author Organization [employer] Address [address] [facility] 7t [place] [address] Care Team Providers Care Well Logging Captain Mud Analysis Name Role Phone Estrella Brunner MD Primary Care Provider [phone] Encounter Details Date Type Department Care Team (Late st Contact Info) Description 10/16/2022 Orders Only [facility] MED & PEDS [address] [place] [address] Rissa Su LPN Social History Tobacco Use [...] Description 05/22/2025 10:00 AM EDT Medication Management [facility] MED & PEDS [address] [place] [address] Lauren Patel, PharmD [address] [place] [address] 07/12/2025 10:00 AM EST Office Visit [facility] OPTOMETRY [address] [place] [address] Mary Kate Kerr, OD [address] [place] [address] documented as of this encounter Visit Diagnoses Not on filedocumented in this encounter Care Teams Well Logging Captain Mud Analysis Relationship Specialty Start Date End Date Estrella Brunner MD [address] [place] [address] PCP - General Family Medicine 08/17/12 [place] 06/05/24 documented as of this encounter
--- OUTSIDE RECORDS SUMMARY | 2025-05-15 13:50 | XMS_ITS | Encounter Summary ---
Author Organization [employer] Address [address] 7[address] [place] [address] Care Team Providers Care Edi Consultant Name Role Phone Estrella Brunner MD Primary Care Provider [phone] Reason for Visit * Reason Comments Med Refill Encounter Details Date Type Department Care Team (Late st Contact Info) Description 05/13/2025 Refill [facility] MEDICINE [address] [place] [address] Stewart Perez MD [address] [place] [address] Social History Tobacco Use Types Packs/Day Years [...] Description 05/22/2025 10:00 AM EDT Medication Management [facility] CHC MED & PEDS [address] [place] [address] Lauren Patel PharmD [address] [place] [address] 07/12/2025 10:00 AM EST Office Visit [facility] OPTOMETRY [address] [place] [address] Mary Kate Kerr, OD [address] [place] [address] documented as of this encounter Visit Diagnoses Not on filedocumented in this encounter Additional Health Concerns Assessment Noted Time PHQ-9 Depression Total Score: 1 04/29/20 23 10:40 AM EDT documented as of this encounter Care Teams Edi Consultant Relationship Specialty Start Date End Date Estrella Brunner MD [address] [place] [address] PCP - General Family Medicine 08/17/12 [facility] [address] [facility] 06/05/24 documented as of this encounter
--- OUTSIDE RECORDS SUMMARY | 2025-05-15 13:50 | XMS_ITS | Encounter Summary ---
Author Organization [employer] Address [address] 7[address] [place] [address] Care Team Providers Care Field Operator Name Role Phone Estrella Brunner MD Primary Care Provider [phone] Reason for Visit * Reason Onset Date Comments callback request 07/11/2024 Encounter Details Date Type Department Care Team ([facility] st Contact Info) Description 07/11/2024 Telephone [facility] MEDICINE [address] [place] [address] Estrella Brunner MD [address] [place], [place] [phone] callback request Social History Tobacco Use Types [...] Description 05/22/2025 10:00 AM EDT Medication Management [facility] CHC MED & PEDS [address] [place] [address] Lauren Patel, PharmD [address] [place] [address] 07/12/2025 10:00 AM EST Office Visit [facility] OPTOMETRY [address] [place] [address] Mary Kate Kerr, OD [address] [place] [address] documented as of this encounter Visit Diagnoses Not on filedocumented in this encounter Additional Health Concerns Assessment Noted Time PHQ-9 Depression Total Score: 1 04/29/20 23 10:40 AM EDT documented as of this encounter Care Teams Field Operator Relationship Specialty Start Date End Date Estrella Brunner MD [address] [place] [address] PCP - General Family Medicine 08/17[facility]12 [facility] documented as of this encounter
--- OUTSIDE RECORDS SUMMARY | 2025-05-15 13:50 | XMS_ITS | Encounter Summary ---
Author Organization [employer] Address [address] [place] [address] Care Team Providers Care Parking Meter Collector Name Role Phone Etsrella Brunner MD Primary Care Provider [phone] Reason for Visit * Reason Onset Date Comments Medication Question 03/22/2025 Encounter Details Date Type Department Care Team ([facility] st Contact Info) Description 03/22/2025 Telephone [facility] CHC MED & PEDS 505 [place], [place] [phone] Estrella Brunner MD [address] [place], [place] [phone] Medication Question Social History Tobacco Use Types Packs/Day Years [...] encounter Miscellaneous Notes * Telephone Encounter - Estrella Brunner MD - 03/22/2025 10:54 PM EDT Sent * Telephone Encounter - Rissa Su LPN - 03/22/2025 3:24 PM EDT Last seen 12/27/24. * Telephone Encounter - Jeevan Henao - 03/22/2025 3:15 PM EDT Tc from pt requesting a prescription for contour next test strips and needles. To be sent to [facility] - [place], [place] - [address] documented in this encounter Plan of Treatment Upcoming Encounters Date Type Department Care Team (Late st Contact Info) Description 05/22/2025 10:00 AM EDT Medication Management [facility] CHC MED & PEDS [address] [place] [address] Lauren Patel, PharmD [address] [place] [address] 07/12/2025 10:00 AM EST Office Visit [facility] OPTOMETRY [address] [place], [place] [phone] Mary Kate Kerr, OD [address] [place] [address] documented as of this encounter Visit Diagnoses Diagnosis Type 2 diabetes mellitus without complication, without long-term current use of insulin ([facility]) documented in this encounter Additional Health Concerns Assessment Noted Time PHQ-9 Depression Total Score: 1 04/29/20 23 10:40 AM EDT documented as of this encounter Care Teams Parking Meter Collector Relationship Specialty Start Date End Date Estrella Brunner MD [address] [place] [address] PCP - General Family Medicine 08/17/12 [place] 06/05/24 documented as of this encounter
--- OUTSIDE RECORDS SUMMARY | 2025-05-15 13:50 | XMS_ITS | Encounter Summary ---
Author Organization [employer] Address [address] [place] [address] Care Team Providers Care Farmworker General Name Role Phone Estrella Brunner MD Primary Care Provider [phone] Encounter Details Date Type Department Care Team (Late st Contact Info) Description 05/15/2025 Orders Only GENERIC EXTERNAL DATA DEPARTMENT Provider, Generic External Data Social History Tobacco Use Types Packs/Day Years [...] Description 05/22/2025 10:00 AM EDT Medication Management [facility] CH[facility] MED & PEDS [address] [place] [address] Lauren Patel, PharmD [address] [place] [address] 07/12/2025 10:00 AM EST Office Visit [facility] OPTOMETRY [address] [place] [address] Mary Kate Kerr, OD [address] [place] [address] documented as of this encounter Procedures Procedure Name Priority Date/Time Associated Diagnosis Comments XR CHEST 1 VIEW Routine 05/15/2025 12:22 PM EDT VENOUS BLOOD GAS Routine 05/15/2025 12:0 5 PM EDT HIGH SENSITIVITY TROPONIN I Routine 05/15/2025 11:59 AM EDT CBC WITH AUTO DIFFERENTIAL Routine 05/15/2025 11:59 AM EDT SED RATE BY MODIFIED WESTERGREN Routine 05/15/2025 11:59 AM EDT C-REACTIVE PROTEIN Routine 05/15/2025 11 :59 AM EDT B TYPE NATRIURETIC PEPTIDE (BNP) Routine 05/15/2025 11:59 AM EDT LIPASE Routine 05/15/2025 11:59 AM EDT COMPREHENSIVE METABOLIC PANEL Routine 05/15/2025 11:59 AM EDT documented in this encounter Results * XR Chest 1 View (05/15/2025 12:22 PM EDT) Anatomical Region Laterality Modality Chest Radiographic Ayde ging 05/15/2025 12:2 2 PM EDT Narrative 05/15/2025 12:35 PM EDT [address] [address] XRay Report Signed Patient: Deedee Linares MR#: [id number] : 1950 Acct:[id number] Age/Sex: 75 / F ADM Date: 05/15/25 Loc: HO.ED Attending Dr: Ordering Physician: Mikey Irene MD Date of Service: 05/15/25 Procedure(s): XR chest 1V Accession Number(s): [id number] cc: Estrella Brunner MD; Mikey Irene MD Reason for Exam: Shortness of breath, hypoxia R/O pneumonia, CHF EXAMINATION: XR CHEST 1 VIEW HISTORY: Shortness of breath, hypoxia R/O pneumonia, CHF COMPARISON: Comparison is made with the prior examination dated 03/30/2025. FINDINGS: A single AP portable view of the chest performed at 12:31 PM is submitted. The lungs are expanded and clear. There is no pleural effusion, pneumothorax, or pulmonary vascular congestion. The heart is normal in size. There is calcification of the aortic knob. The bones are intact. XR/XR chest 1V IMPRESSION: No acute cardiopulmonary abnormality. Electronically signed by: Ricky Fuller MD 05/15/2025 12:32 PM EDT RP Dictated By: Ricky Fuller MD Signed By: <Electronically signed by Ricky Fuller MD in OV> 05/15/25 1232 DD/ 1222 TD/TT: 05/15/25 1227 Apprentice: Procedure Note Donotuseinterpreter, Image - 05/15/[address] [place] [address] XRay Report Signed Patient: Deedee Linares FMR#: [id number] : 1950cct:[id number] Age/Sex: 75 / FADM Date: 05/15/25 Loc: HO.ED Attending Dr: Ordering Physician: Mikey Irene MD Date of Service: 05/15/25 Procedure(s): XR chest 1V Accession Number(s): [id number] cc: Estrella Brunner MD; Mikey Irene MD Reason for Exam: Shortness of breath, hypoxia R/O pneumonia, CHF EXAMINATION: XR CHEST 1 VIEW HISTORY: Shortness of breath, hypoxia R/O pneumonia, CHF COMPARISON: Comparison is made with the prior examination dated 03/30/2025. FINDINGS: A single AP portable view of the chest performed at 12:31 PM is submitted. The lungs are expanded and clear. There is no pleural effusion, pneumothorax, or pulmonary vascular congestion. The heart is normal in size. There is calcification of the aortic knob. The bones are intact. XR/XR chest 1V IMPRESSION: No acute cardiopulmonary abnormality. Electronically signed by: Ricky Fuller MD 05/15/2025 12:32 PM EDT RP Dictated By: Ricky Fuller MD Signed By: <Electronically signed by Ricky Fuller MD in OV> 05/15/25 1232 DD/ 1222 TD/TT: 05/15/25 1227 Apprentice: [facility] External Provider IMG XR PROCEDURES Edited Result - Final * (ABNORMAL) VENOUS BLOOD GAS (05/15/2025 12:05 PM EDT) VBG pH 7.44(H) 7.32 - 7.43 [facility] Comment:METER #: [id number] additional_comment: Cb ditolc VBG PCO2 37 mmHg [facility] Comment:METER #: [id number] additional_comment: Cb ditolc VBG PO2 57 mmHg [facility] Comment:METER #: [id number] additional_comment: Cb ditolc VBG Base Excess 1.9 mmol/L [facility] Comment:METER #: [id number] additional_comment: Cb ditolc VBG HCO3 25 22 - 26 mmol/L [facility] Comment:METER #: [id number] additional_comment: Cb ditolc O2 Sat, Kal 81.0 % [facility] Comment:METER #: [id number] additional_comment: Cb ditolc 05/15/2025 12:0 5 PM EDT 05/15/2025 12:08 PM EDT us Generic External Data Provider LAB BLOOD ORDERAB LES Final Result Performing Organization Address [facility] Co de Phone Number [facility] [address] [place] [phone] * (ABNORMAL) Sed Rate by Modified Colleenren (05/15/2025 11:59 AM EDT) Pathologist [facility] Erythrocyte Sedimentation Rate 38(H) 0 - 20 MM/HR [facility] Comment:Patients with polycy themia and many hemoglobin abnormalitiesmay have depressed sed rates whereas patients with anemiamay have elevated sed rates. 05/15/2025 11:5 9 AM EDT 05/15/2025 12:02 PM EDT us Generic External Data Provider LAB BLOOD ORDERAB LES Final Result Performing Organization Address [facility] Co de Phone Number [facility] [address] [place] [phone] * High Sensitivity Troponin I (05/15/2025 11:59 AM EDT) Pathologist [facility] TROPONIN I HIGH SENSITIVITY 3.3 <3.5 - 17.0 ng/L [facility] Comment:The Arana high sens itivity Troponin-I results should beused in conjunction with other diagnostic information suchas ECG, clinical observations and information, and patientsymptoms to aid in the diagnosis of CA. 05/15/2025 11:5 9 AM EDT 05/15/2025 12:02 PM EDT Generic External Data Provider LAB BLOOD ORDERAB LES Final Result Performing Organization Address [facility] de Phone Number [facility] [address] [place] [phone] * Lipase (05/15/2025 11:59 AM EDT) Pathologist [facility] Lipase 12 8 - 78 U/L [facility] 05/15/2025 11:5 9 AM EDT 05/15/2025 12:02 PM EDT Generic External Data Provider LAB BLOOD ORDERAB LES Final Result Performing Organization Address [facility] Phone Number [facility] [address] [place] [phone] * (ABNORMAL) C-reactive Protein (05/15/2025 11:59 AM EDT) [facility] C Reactive Protein 3.72(H) < or = 0.50 mg/dL [facility] 05/15/2025 11:5 9 AM EDT 05/15/2025 12:02 PM EDT Generic External Data Provider LAB BLOOD ORDERAB LES Final Result Performing Organization Address [facility] de Phone Number [facility] [address] [place] [phone] * (ABNORMAL) Comprehensive Metabolic Panel (05/15/2025 11:59 AM EDT) [facility] Sodium 143 135 - 145 mmol/L [facility] Potassium 4.1 3.3 - 5.1 mmol/L [facility] Comment:Slight Hemolysis.Int erpret result with caution. Chloride 109(H) 96 - 108 mmol/L [facility] Carbon Dioxide 24 22 - 29 mmol/L [facility] Anion Gap 14 12 - 20 [facility] Urea Nitrogen (BUN) 16 9 - 16 mg/dL [facility] Creatinine, Serum 0.75 0.5 - 1.4 mg/dL [facility] Creatinine Clr Calc Pharmacy 64.0 [facility] Comment:Provided height and weight: 154.94 cm,82.4 kg.eGFR (calculated from the MDRD study equation) and eCrCl(calculated from the Cockcroft-Gault equation) are based ondifferent parameters and may not yield comparable results.If eCrCl result is absurd, please check patient'sheight/weight. Estimated Glomerular Filt Rate >60 [facility] Comment:Chronic Kidney Disea se: Estimated GFR < 60 mL/min/1.18e8Opbtnh Kidney Disease: Estimated GFR < 15 mL/min/1.73m2 Glucose 99 60 - 115 mg/dL [facility] Calcium 9.2 8.4 - 10.2 mg/dL [facility] Bilirubin, Total 0.5 0.0 - 1.0 mg/dL [facility] Aspartate Amino Transferase 26 5 - 31 U/L [facility] Comment:Slight Hemolysis.Int erpret result with caution. Alanine Aminotransferase 9 0 - 31 U/L [facility] Total Protein 7.1 6.5 - 8.0 g/dL [facility] Albumin Level 4.3 3.5 - 5.0 g/dL [facility] Alkaline Phosphatase 97 39 - 117 U/L [facility] 05/15/2025 11:5 9 AM EDT 05/15/2025 12:02 PM EDT us Generic External Data Provider LAB BLOOD ORDERAB LES Final Result [facility] [address] [place] [address] [phone] * (ABNORMAL) B Type Natriuretic Peptide (BNP) (05/15/2025 11:59 AM EDT) B Type Natriuretic Peptide 116(H) <100 pg/mL [facility] 05/15/2025 11:5 9 AM EDT 05/15/2025 12:02 PM EDT us Generic External Data Provider LAB BLOOD ORDERAB LES Final Result [facility] [address] [place], [place] [phone] * (ABNORMAL) CBC auto differential (05/15/2025 11:59 AM EDT) White Blood Count 9.4 4.8 - 10.8 X10*3/uL [facility] Red Blood Count 3.96(L) 4.20 - 5.50 X10*6/uL [facility] Hemoglobin 11.1(L) 12.0 - 16.0 g/dl [facility] Hematocrit 34.7(L) 37.0 - 47.0 % [facility] Mean Corpuscular Volume 87.6 80.0 - 98.0 fL [facility] Mean Corpuscular Hemoglobin 28.0 27.0 - 33.0 pg [facility] Mean Corpuscular HGB Conc 32.0 31.0 - 35.0 g/dl [facility] Red Cell Distribution Width 16.3(H) 11.0 - 16.0 % [facility] Platelet Count 265 160 - 400 X10*3/uL [facility] Mean Platelet Volume 9.6 9.4 - 12.3 fL [facility] Neutrophils Percent Auto 78.8(H) 45 - 73 % [facility] Imm Gran Pct Auto 0.9(H) 0.0 - 0.4 % [facility] Lymphocytes Percent Auto 12.3(L) 20 - 40 % [facility] Monocytes Percent Auto 7.6 2 - 11 % [facility] Eosinophils Percent Auto 0.0 0 - 4 % [facility] Basophils Percent Auto 0.4 0 - 2 % [facility] NRBC Pct Auto 0.0 0.0 - 0.2 /100WBC [facility] Neutrophils Absolute Auto 7.4 2.0 - 8.3 x10*3/uL [facility] Imm Gran Abs Auto 0.08(H) 0.00 - 0.03 X10*3/uL [facility] Lymphocytes Absolute Auto 1.2 1.2 - 4.9 X10*3/uL [facility] Monocytes Absolute Auto 0.7 0.1 - 1.2 X10*3/uL [facility] Eosinophils Absolute Auto 0.0 0.0 - 0.4 X10*3/uL [facility] Basophils Absolute Auto 0.0 0.0 - 0.2 X10*3/uL [facility] NRBC Abs Auto 0.000 0.0 - 0.012 X10*3/uL [facility] 05/15/2025 11:5 9 AM EDT 05/15/2025 12:02 PM EDT us Generic External Data Provider LAB BLOOD ORDERAB LES Final Result [facility] [address] [place] [address] [phone] documented in this encounter Visit Diagnoses Not on filedocumented in this encounter Additional Health Concerns Assessment Noted Time PHQ-9 Depression Total Score: 1 04/29/20 23 10:40 AM EDT documented as of this encounter Care Teams Farmworker General Relationship Specialty Start Date End Date Estrella Brunner MD [address] [place] [phone] PCP - General Family Medicine 08/17/12 [facility] documented as of this encounter
--- OUTSIDE RECORDS SUMMARY | 2025-05-15 13:50 | XMS_ITS | Encounter Summary ---
Author Organization [employer] Address [address] [facility] [address] [place] [address] Care Team Providers Care Industrial Organization Manager Name Role Phone Estrella Brunner MD Primary Care Provider [phone] Reason for Visit * Reason Comments Med Refill Encounter Details Date Type Department Care Team (Late st Contact Info) Description 12/16/2022 Refill [facility] MEDIC[facility] [address] [place], [place] [phone] Estrella Brunner MD [address] [place], [place] [phone] Social History Tobacco Use Types Packs/Day Years [...] 05/22/2025 10:00 AM EDT Medication Management [facility] CH[facility] MED & PEDS [address] [place], [place] [phone] Lauren Patel, PharmD [address] [place], [place] [phone] 07/12/2025 10:00 AM EST Office Visit [facility] OPT[facility] [address] [place], [place] [phone] Mary Kate Kerr OD [address] [place] [address] documented as of this encounter Visit Diagnoses Not on filedocumented in this encounter Care Teams Industrial Organization Manager Relationship Specialty Start Date End Date Estrella Brunner MD [address] [place] [address] PCP - General Family Medicine 08/17/12 [facility] 06/05/24 documented as of this encounter
--- OUTSIDE RECORDS SUMMARY | 2025-05-15 13:50 | XMS_ITS | Encounter Summary ---
Author Organization [employer] Address [address] [place] [address] Care Team Providers Care Ruffling Machine Operator Name Role Phone Estrella Brunner MD Primary Care Provider Reason for Visit * Reason Onset Date Comments FYI 09/14/2024 Encounter Details Date Type Department Care Team ([facility] st Contact Info) Description 09/14/2024 Telephone [facility] MEDICINE [address] [place] [address] Estrella Brunner MD [address] [place], [place] [phone] FYI Social History Tobacco Use Types Packs/Day [...] Kan - 09/14/2024 4:00 PM EST Tc from [place] from [facility] notifying pt has been losing weight Pt weight -August 24 2024 (202.7) September 14 2024 (195.6) documented in this encounter Plan of Treatment Upcoming Encounters Date Type Department Care Team (Late st Contact Info) Description 05/22/2025 10:00 AM EDT Medication Management [facility] CHC MED & PEDS [address] [place] [address] Lauren Patel, PharmD [address] [place] [address] 07/12/2025 10:00 AM EST Office Visit [facility] OPTOMETRY [address] [place] [address] Mary Kate Kerr, OD [address] [place] [address] documented as of this encounter Visit Diagnoses Not on filedocumented in this encounter Additional Health Concerns Assessment Noted Time PHQ-9 Depression Total Score: 1 04/29/20 23 10:40 AM EDT documented as of this encounter Care Teams Ruffling Machine Operator Relationship Specialty Start Date End Date Estrella Brunner MD [address] [place] [address] PCP - General Family Medicine 08/17/12 [facility] 06/05/24 documented as of this encounter
--- OUTSIDE RECORDS SUMMARY | 2025-05-15 13:50 | XMS_ITS | Encounter Summary ---
Author Organization [employer] Address [address] [place] [address] Care Team Providers Care Tax Analyst Name Role Phone Estrella Brunner MD Primary Care Provider [phone] Encounter Details Date Type Department Care Team ([facility] st Contact Info) Description 12/29/2024 Orders Only [facility] CH[facility] MED & PEDS [address] [place], [place] [phone] Stewart Perez MD [address] [place], [place] [phone] Normocytic anemia (Primary Dx) Social History Tobacco [...] Description 05/22/2025 10:00 AM EDT Medication Management [facility] CHC MED & PEDS [address] [place] [address] Lauren Patel, PharmD [address] [place] [address] 07/12/2025 10:00 AM EST Office Visit [facility] OPTOMETRY [address] [place] [address] Mary Kate Kerr, OD [address] [place] [address] Scheduled Orders Name Type Priority Associated Diagnoses [...] documented as of this encounter Care Teams Tax Analyst Relationship Specialty Start Date End Date Estrella Brunner MD [address] [place] [address] PCP - General Family Medicine 08/17/12 [facility] 06/05/24 documented as of this encounter
--- OUTSIDE RECORDS SUMMARY | 2025-05-15 13:50 | XMS_ITS | Clinical Summary ---
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 90 tablet 01/10/20 24 Active Diclofenac Sodium (Voltaren) 1 % gel Use topical BID 100 g 3 03/24/20 24 Active ergocalciferol (Vitamin D2) 1.25 MG (97768 UT) capsule Take 1 capsule by mouth 1 (one) time per week. 03/24/20 24 Active Repatha SureClick 140 MG/ML injection Inject 1 mL under the skin every 14 (fourteen) days. 05/05/20 Active ezetimibe (Zetia) 10 MG tablet Take 1 tablet by mouth Once per day. 04/20/20 Active Trelegy Ellipta 200-62.5-25 MCG/ACT aerosol powder Inhale 1 puff 1 (one) time each day at the same time. 05/16/20 Active ibuprofen 600 MG tablet Take 1 tablet by mouth 3 times daily. 07/09/20 Active Combivent Respimat 20-100 MCG/ACT inhaler Inhale 1 puff every 4 (four) hours. 05/16/20 Active isosorbide mononitrate ER (Imdur) 30 MG 24 hr tablet Take 1 tablet by mouth Once per day. 04/20/20 Active magnesium oxide (Mag-Ox) 400 (240 Mg) MG tablet Take 1 tablet by mouth 2 times daily. 05/16/20 Active metoprolol succinate XL (Toprol-XL) 25 MG 24 hr tablet Take 1 tablet by mouth in the morning. 05/22/20 Active Blood Pressure kitIndications: Essential (primary) hypertension Use BP kit to check BP daily 1 kit 06/08/20 24 Active Aspirin Low Dose 81 MG EC tablet TAKE 1 TABLET BY MOUTH EVERY MORNING 30 tablet 11 07/11/20 24 Active cyanocobalamin (Vitamin B-12) 1000 MCG tablet TAKE 1 TABLET BY MOUTH EVERY MORNING 30 tablet 11 10/11/19 25 Active traZODone (Desyrel) 50 MG tablet TAKE 1 TABLET BY MOUTH AT BEDTIME 30 tablet 10/31/19 25 Active Blood Glucose Monitoring Suppl (ONE TOUCH ULTRA 2) w/Device kit USE DIRECTED TO TEST BLOOD SUGAR TWICE DAILY 1 kit 10/31/19 25 Active oxybutynin XL (Ditropan-XL) 10 MG 24 hr tablet TAKE 1 TABLET BY MOUTH EVERYDAY AT NOON 30 tablet 11 12/21/19 25 Active metFORMIN (Glucophage) 850 MG tabletIndicatio ns:Type 2 diabetes mellitus without complication, without long-term current use of insulin (CMS/HCC) Take 1 tablet (850 mg) by mouth with breakfast and with evening meal. 60 tablet 11 12/28/19 25 026 Active Lancets (Artifact TechnologiesTouch Delica Plus [id number]) [facility] Check sugars BID 100 each 3 03/22/20 25 Active glucose blood (OneTouch Ultra Test) test stripIndication s:Type 2 diabetes mellitus without complication, without long-term current use of insulin ([facility]) Check sugars BID 50 strip 5 03/22/20 25 Active theophylline ER (Uniphyl) 400 MG 24 hr tablet Take 1 tablet by mouth Once per day. 03/10/20 25 Active Acetaminophen 500 MG capsule TAKE 1 CAPSULE BY MOUTH EVERY 6 HOURS NEEDED FOR PAIN OR FEVER 30 capsule 03/29/20 25 Active Alcohol Swabs (Alcohol Prep) 70 % pads USE DIRECTED TWICE DAILY 100 each 04/04/20 25 Active Ferrous Sulfate (iron) 325 (65 Fe) MG tablet TAKE 1 TABLET BY MOUTH TWICE DAILY IN THE MORNING AND IN THE EVENING 60 tablet 04/17/20 25 Active glipiZIDE (Glucotrol) 5 MG tablet TAKE 1 TABLET BY MOUTH EVERY MORNING 30 tablet 05/03/20 25 Active Respiratory Therapy Supplies (Aerobika) deviceIndicatio ns:Type 2 diabetes mellitus without complication, without long-term current use of insulin ([facility]),Chron ic obstructive pulmonary disease with acute exacerbation ([facility]) To use 2 times a day 1 each 05/03/20 25 Active sertraline (Zoloft) 50 MG tabletIndicatio ns:Major depressive disorder with single episode, in partial remission ([facility]) Take 2 tablets (100 mg) by mouth at bedtime. 30 tablet 05/03/20 25 Active EPINEPHrine (Epipen) 0.3 MG/0.3ML injection syringeIndicati ons:Anaphylaxis , subsequent encounter Inject 0.3 mL (0.3 mg) as directed 1 (one) time for 1 dose. use as directed for allergic reaction and then call 911 1 each 05/03/20 25 Active atorvastatin (Lipitor) 80 MG tablet TAKE 1 TABLET BY MOUTH AT BEDTIME 90 tablet 05/14/20 25 Active Ferrous Sulfate (iron) 325 (65 Fe) MG tablet TAKE 1 TABLET BY MOUTH TWICE DAILY IN THE MORNING AND IN THE EVENING 60 tablet 04/27/20 24 025 Discontinued sertraline (Zoloft) 50 MG tablet TAKE 1 TABLET BY MOUTH AT BEDTIME 30 tablet 10/31/19 25 025 Discontinued(R eorder (will not trigger notification to Pharmacy)) glipiZIDE (Glucotrol) 5 MG tablet TAKE 1 TABLET BY MOUTH EVERY MORNING 30 tablet 1 02/16/20 25 025 Discontinued atorvastatin (Lipitor) 80 MG tablet TAKE 1 TABLET BY MOUTH AT BEDTIME 90 tablet 02/20/20 25 025 Discontinued Hospital, Clinic, or Other Facility Administered Medication Ordered Dose Route Frequency Start Date End Date Status ipratropium-albuterol (Duo-Neb) 0.5-2.5 mg/3 mL nebulizer solution 3 mgIndications:Acute respiratory disease 3 mg NEBULIZATION Once 03/30/2025 Act faye predniSONE (Deltasone) tablet 20 mgIndications:Acute respiratory disease 20 mg PO Once 03/30/2025 Activ e Active Problems Problem Noted Date Diagnosed Date [...] 11/14/2021 Presence of left artificial knee joint 2 Unilateral primary osteoarthritis, left knee 07/2022 Type 2 diabetes mellitus without complication Encounters Date Type Department Care Team Description 05/15/2025 Orders Only GENERIC EXTERNAL DATA DEPARTMENT Provider, Generic External Data 05/15/2025 Telephone [facility] [address] [place] [address] Estrella Brunner MD FYI 05/15/2025 Travel 05/13/2025 Refill [facility] [address] [place] [address] Stewart Perez MD 05/10/2025 Telephone [facility] [address] [place] [address] Estrella Brunner MD Verbal order 05/04/2025 Telephone [facility] [address] [place] [address] Estrella Brunner MD verbal orders 05/04/2025 Telephone [facility] [address] [place] [address] Estrella Brunner MD Durable Medical Equipment 05/03/2025 10:00 AM EDT Office Visit [facility] [address] [place] [address] Stewart Perez MD Type 2 diabetes mellitus without complication, without long-term current use of insulin ([facility]) (Primary Dx); Chronic obstructive pulmonary disease with acute exacerbation (CMS/HCC); Major depressive disorder with single episode, in partial remission (CMS/HCC); Anaphylaxis, subsequent encounter 05/03/2025 Travel 05/02/2025 Telephone [facility] [address] [place] [address] Alina Muñoz, PharmD 05/02/2025 Refill [facility] [address] [place] [address] Stewart Perez MD 04/30/2025 Telephone [facility] [address] [place] [address] Estrella Brunner MD Appointment Request 04/26/2025 Travel 04/20/2025 Telephone [facility] [address] [place] [address] Estrella Brunner MD verbal orders 04/20/2025 Telephone [facility] [address] [place] [address] Estrella Brunner MD 04/19/2025 Patient Outreach [facility] [address] [place] [address] Estrella Brunner MD Transition Of Care (Tcm) (HDF scheduled. ) 04/15/2025 Refill [facility] [address] [place] [address] Estrella Brunner MD 04/04/2025 Patient Outreach [facility] [address] [place] [address] Estrella Brunner MD discharge request (UNABLE TO ACQUIRE) 04/03/2025 Refill [facility] [address] [place] [address] Estrella Brunner MD 03/30/2025 9:30 AM EDT Office Visit [facility] [address] [place] [address] Estrella Brunner MD Acute respiratory disease (Primary Dx) 03/30/2025 Orders Only [facility] External Provider, [facility] 03/30/2025 Travel 03/29/2025 Refill [facility] [address] [place] [address] Estrella Brunner MD 03/26/2025 Telephone [facility] [address] [place] [address] Alina Muñoz, PharmD 03/24/2025 Travel 03/22/2025 Orders Only [facility] [address] [facility] [place] [address] Estrella Brunner MD 03/22/2025 Orders Only [facility] [address] [place] [address] Estrella Brunner MD Type 2 diabetes mellitus without complication, without long-term current use of insulin ([facility]) 03/22/2025 Telephone [facility] [address] [place] [address] Estrella Brunner MD Medication Question 03/22/2025 Refill [facility] [address] [facility] [place] [address] Estrella Brunner MD 03/21/2025 Orders Only [facility] [address] [place] [address] ProviderYolanda MD 03/16/2025 Telephone [facility] [address] [place] [address] Estrella Brunner MD fyi; Call Back Request 03/14/2025 Telephone [facility] [address] [place] [address] Estrella Brunner MD Verbal order 02/23/2025 Results Follow-Up [facility] [address] [place] [address] Desiree Gan MD XR Chest 1 View, CBC auto differential, Comprehensive Metabolic Panel, Additional followed-up results: 6 02/23/2025 Orders Only [facility] External Provider, [facility] 02/18/2025 Refill [facility] [address] [place] [address] Estrella Brunner MD 02/14/2025 Refill [facility] [address], [place] [phone] Estrella Brunner MD from Last 3 Months Immunizations Immunization Administration Dates Next Due Hep B, adult [...] Sign Reading Time Taken Comments Blood Pressure 145/73 05/03/2025 10:25 AM EDT Pulse 91 05/03/2025 10:25 AM EDT Temperature 36.7 C (98 F) 12/27/2024 4:03 PM EDT Respiratory Rate 19 05/03/2025 10:25 AM EDT Oxygen Saturation 91% 05/03/2025 10:25 AM EDT Inhaled Oxygen Concentration - - Weight 81.6 kg (180 lb) 05/03/2025 10:25 AM EDT Height 157.5 cm (5' 2 ) 05/03/2025 10:25 AM EDT Body Mass Index 32.92 05/03/2025 10:25 AM EDT Plan of Treatment Upcoming Encounters Date Type Department Care Team (Late st Contact Info) Description 05/22/2025 10:00 AM EDT Medication Management [facility] [address] [place] [address] Lauren Patel, PharmD [address] [place] [address] 07/12/2025 10:00 AM EST Office Visit [facility] [address] [place] [address] Mary Kate Kerr, OD [address] [place] [address] Health Maintenance Due Date Last Done Comments [...] Additional history exists Eye Exam 01/07/2025 01/07/2023, 0 12/2022, 01/07/2023, Additional history exists COVID-19 Vaccine ( season) 2025 06/08/2024, 08/04/2022, 10/16/2021, Additional history exists Influenza Vaccine (#1) 2025 , 07/23/2023, 06/30/2022, Additional history exists Mammogram 06/30/2025 06/30/2024, 11/2022, 03/27/2019, Additional history exists Diabetes: Hemoglobin A1C 08/03/2025 025, 12/27/2024, 06/08/2024, Additional history exists Lipid Panel 08/11/2025 08/11/2024, 0 02/2024, 05/13/2023, Additional history exists Colonoscopy 08/19/2025 [...] Completed 09/11/2022, 02/2023, 06/30/2022, Additional history exists Hepatitis C Screening [...] patient's age to complete this topic Meningococcal B Vaccine Aged Out No l onger eligible based on patient's age to complete [...] GAS Routine 05/15/2025 12:0 5 PM EDT SED RATE BY MODIFIED WESTERGREN Routine 05/15/2025 11:59 AM EDT HIGH SENSITIVITY TROPONIN I Routine 05/15/2025 11:59 AM EDT LIPASE Routine 05/15/2025 11:59 AM EDT C-REACTIVE PROTEIN Routine 05/15/2025 11 :59 AM EDT COMPREHENSIVE METABOLIC PANEL Routine 05/15/2025 11:59 AM EDT B TYPE NATRIURETIC PEPTIDE (BNP) Routine 05/15/2025 11:59 AM EDT CBC WITH AUTO DIFFERENTIAL Routine 05/15/2025 11:59 AM EDT POCT GLUCOSE Routine 05/03/2025 11:53 AM EDT Type 2 diabetes mellitus without complication, without long-term current use of insulin ([facility]) POCT GLYCATED HEMOGLOBIN, TOTAL Routine 05/03/2025 11:52 AM EDT Type 2 diabetes mellitus without complication, without long-term current use of insulin (CMS/HCC) XR CHEST 1 VIEW Routine 03/30/2025 10:30 AM EDT URINALYSIS, COMPLETE Routine 03/15/2025 11:42 AM EDT VENOUS BLOOD GAS Routine 02/23/2025 4:40 PM EDT B TYPE NATRIURETIC PEPTIDE (BNP) Routine 02/23/2025 4:26 PM EDT LACTIC ACID Routine 02/23/2025 4:25 PM EDT HIGH SENSITIVITY TROPONIN I Routine 02/23/2025 4:25 PM EDT MAGNESIUM Routine 02/23/2025 4:25 PM EDT COMPREHENSIVE METABOLIC PANEL Routine 02/23/2025 4:25 PM EDT CBC WITH AUTO DIFFERENTIAL Routine 02/23/2025 4:25 PM EDT SARS COV2/INFLUENZA A/B AND RSV RNA QL NAAT Routine 02/23/2025 4:25 PM EDT XR CHEST 1 VIEW Routine 02/23/2025 3:25 PM EDT HEPATITIS C AB W/REFL TO HCV RNA, QN, PCR Routine 12/27/2024 4:25 PM EDT Unintentional weight loss LIPID PANEL, STANDARD Routine 08/11/2024 10:21 AM [...] Recently Relevant to Health Maintenance Results * XR Chest 1 View (05/15/2025 12:22 PM EDT) Only the most recent of3 resultswithin the time period is included. Anatomical Region Laterality Modality Chest Radiographic Ayde ging 05/15/2025 12:2 2 PM EDT Narrative 05/15/2025 12:35 PM EDT [address] [address] XRay Report Signed Patient: Deedee Linares MR#: [id number] : 1950 Acct:[id number] Age/Sex: 75 / F ADM Date: 05/15/25 Loc: HO.ED Attending Dr: Ordering Physician: Mikey Irene MD Date of Service: 05/15/25 Procedure(s): XR chest 1V Accession Number(s): [id number] cc: Estrella Brunner MD; Mikey Irene MD [...] 05/15/25 1232 DD/ 1222 TD/TT: 05/15/25 1227 Ent Nurse: Procedure Note Thien, Image - 05/15/[address] [address] XRay Report Signed Patient: Deedee Linares FMR#: [id number] : 1950cct:[id number] Age/Sex: 75 / FADM Date: 05/15/25 Loc: HO.ED Attending Dr: Ordering Physician: Mikey Irene MD Date of Service: 05/15/25 Procedure(s): XR chest 1V Accession Number(s): [id number] cc: Estrella Brunner MD; Mikey Irene MD [...] Ricky Fuller MD 05/15/2025 12:32 PM EDT Dictated By: Ricky Fuller MD Signed By: <Electronically signed by Ricky Fuller MD in OV> 05/15/25 1232 DD/ 1222 TD/TT: 05/15/257 Ent Nurse: [facility] External Provider IMG XR PROCEDURES Edited Result - Final * (ABNORMAL) VENOUS BLOOD GAS (05/15/2025 12:05 PM EDT) Only the most recent of2 resultswithin the time period is included. VBG pH 7.44(H) 7.32 - 7.43 [facility] Comment:METER #: [id number] additional_comment: Cb ditolc VBG PCO2 37 mmHg [facility] Comment:METER #: [id number] additional_comment: Cb ditolc VBG PO2 57 mmHg [facility] Comment:METER #: [id number] additional_comment: Cb ditolc VBG Base Excess 1.9 mmol/L [facility] Comment:METER #: [id number] additional_comment: Cb ditolc VBG HCO3 25 22 - 26 mmol/L [facility] Comment:METER #: [id number] additional_comment: Cb ditolc O2 Sat, Kal 81.0 % [facility] Comment:METER #: [id number] additional_comment: Cb ditolc 05/15/2025 12:0 5 PM EDT 05/15/2025 12:08 PM EDT us Generic External Data Provider LAB BLOOD ORDERAB LES Final Result Performing Organization Address [facility] de Phone Number [facility] [address] [place] [address] [phone] * High Sensitivity Troponin I (05/15/2025 11:59 AM EDT) Only the most recent of2 resultswithin the time period is included. Pathologist [facility] TROPONIN I HIGH SENSITIVITY 3.3 <3.5 - 17.0 ng/L [facility] Comment:The Arana high sens itivity Troponin-I results should beused in conjunction with other diagnostic information suchas ECG, clinical observations and information, and patientsymptoms to aid in the diagnosis of ND. 05/15/2025 11:5 9 AM EDT 05/15/2025 12:02 PM EDT us Generic External Data Provider LAB BLOOD ORDERAB LES Final Result Performing Organization Address [facility] Co de Phone Number [facility] [address] [place] [phone] * (ABNORMAL) CBC auto differential (05/15/2025 11:59 AM EDT) Only the most recent of2 resultswithin the time period is included. White Blood Count 9.4 4.8 - 10.8 X10*3/uL [facility] Red Blood Count 3.96(L) 4.20 - 5.50 X10*6/uL [facility] Hemoglobin 11.1(L) 12.0 - 16.0 g/dl [facility] Hematocrit 34.7(L) 37.0 - 47.0 % [facility] Mean Corpuscular Volume 87.6 80.0 - 98.0 fL [facility] Mean Corpuscular Hemoglobin 28.0 27.0 - 33.0 pg [facility] Mean Corpuscular HGB Conc 32.0 31.0 - 35.0 g/dl [facility] Red Cell Distribution Width 16.3(H) 11.0 - 16.0 % [facility] Platelet Count 265 160 - 400 X10*3/uL [facility] Mean Platelet Volume 9.6 9.4 - 12.3 fL [facility] Neutrophils Percent Auto 78.8(H) 45 - 73 % [facility] Imm Gran Pct Auto 0.9(H) 0.0 - 0.4 % [facility] Lymphocytes Percent Auto 12.3(L) 20 - 40 % [facility] Monocytes Percent Auto 7.6 2 - 11 % [facility] Eosinophils Percent Auto 0.0 0 - 4 % [facility] Basophils Percent Auto 0.4 0 - 2 % [facility] NRBC Pct Auto 0.0 0.0 - 0.2 /100WBC [facility] Neutrophils Absolute Auto 7.4 2.0 - 8.3 x10*3/uL [facility] Imm Gran Abs Auto 0.08(H) 0.00 - 0.03 X10*3/uL [facility] Lymphocytes Absolute Auto 1.2 1.2 - 4.9 X10*3/uL [facility] Monocytes Absolute Auto 0.7 0.1 - 1.2 X10*3/uL [facility] Eosinophils Absolute Auto 0.0 0.0 - 0.4 X10*3/uL [facility] Basophils Absolute Auto 0.0 0.0 - 0.2 X10*3/uL [facility] NRBC Abs Auto 0.000 0.0 - 0.012 X10*3/uL [facility] 05/15/2025 11:5 9 AM EDT 05/15/2025 12:02 PM EDT us Generic External Data Provider LAB BLOOD ORDERAB LES Final Result Performing Organization Address City/[facility]/ZIP Co de Phone Number [facility] [address] [place] [phone] * (ABNORMAL) Sed Rate by Modified Casey (05/15/2025 11:59 AM EDT) Erythrocyte Sedimentation Rate 38(H) 0 - 20 MM/HR [facility] Comment:Patients with polycy themia and many hemoglobin abnormalitiesmay have depressed sed rates whereas patients with anemiamay have elevated sed rates. 05/15/2025 11:5 9 AM EDT 05/15/2025 12:02 PM EDT us Generic External Data Provider LAB BLOOD ORDERAB LES Final Result Performing Organization Address City/[facility]/ZIP Co de Phone Number [facility] [address] [place] [phone] * (ABNORMAL) C-reactive Protein (05/15/2025 11:59 AM EDT) C Reactive Protein 3.72(H) < or = 0.50 mg/dL [facility] 05/15/2025 11:5 9 AM EDT 05/15/2025 12:02 PM EDT us Generic External Data Provider LAB BLOOD ORDERAB LES Final Result Performing Organization Address [facility] de Phone Number [facility] [address] [place] [phone] * (ABNORMAL) B Type Natriuretic Peptide (BNP) (05/15/2025 11:59 AM EDT) Only the most recent of2 resultswithin the time period is included. Pathologist [facility] [place] B Type Natriuretic Peptide 116(H) <100 pg/mL [facility] 05/15/2025 11:5 9 AM EDT 05/15/2025 12:02 PM EDT Generic External Data Provider LAB BLOOD ORDERAB LES Final Result Performing Organization Address [facility] Phone Number [facility] [address] [place] [phone] * Lipase (05/15/2025 11:59 AM EDT) Pathologist [facility] Lipase 12 8 - 78 U/L [facility] 05/15/2025 11:5 9 AM EDT 05/15/2025 12:02 PM EDT Generic External Data Provider LAB BLOOD ORDERAB LES Final Result Performing Organization Address [facility] de Phone Number [facility] [address] [place] [phone] * (ABNORMAL) Comprehensive Metabolic Panel (05/15/2025 11:59 AM EDT) Only the most recent of2 resultswithin the time period is included. [facility] Sodium 143 135 - 145 mmol/L [facility] Potassium 4.1 3.3 - 5.1 mmol/L [facility] Comment:Slight Hemolysis.Int erpret result with caution. Chloride 109(H) 96 - 108 mmol/L [facility] Carbon Dioxide 24 22 - 29 mmol/L [facility] Anion Gap 14 12 - 20 [facility] Urea Nitrogen (BUN) 16 9 - 16 mg/dL [facility] Creatinine, Serum 0.75 0.5 - 1.4 mg/dL [facility] Creatinine Clr Calc Pharmacy 64.0 [facility] Comment:Provided height and weight: 154.94 cm,82.4 kg.eGFR (calculated from the MDRD study equation) and eCrCl(calculated from the Cockcroft-Gault equation) are based ondifferent parameters and may not yield comparable results.If eCrCl result is absurd, please check patient'sheight/weight. Estimated Glomerular Filt Rate >60 [facility] Comment:Chronic Kidney Disea se: Estimated GFR < 60 mL/min/1.88x0Yyonxl Kidney Disease: Estimated GFR < 15 mL/min/1.73m2 Glucose 99 60 - 115 mg/dL [facility] Calcium 9.2 8.4 - 10.2 mg/dL [facility] Bilirubin, Total 0.5 0.0 - 1.0 mg/dL [facility] Aspartate Amino Transferase 26 5 - 31 U/L [facility] Comment:Slight Hemolysis.Int erpret result with caution. Alanine Aminotransferase 9 0 - 31 U/L [facility] Total Protein 7.1 6.5 - 8.0 g/dL [facility] Albumin Level 4.3 3.5 - 5.0 g/dL [facility] Alkaline Phosphatase 97 39 - 117 U/L [facility] 05/15/2025 11:5 9 AM EDT 05/15/2025 12:02 PM EDT us Generic External Data Provider LAB BLOOD ORDERAB LES Final Result [facility] [address] [place] [phone] [phone] * (ABNORMAL) POCT Glucose (05/03/2025 11:53 AM EDT) Glucose Blood, POC 256(A) 60 - 200 mg/dL QC Media Lot # [id number] Lot# Expiration Date Comment:random Blood Capillary blood specimen / Unknown 05/03/2025 11:53 AM EDT Stewart Perez MD POINT OF CARE TEST ENTER/ED IT ORDERABLES Final Result * (ABNORMAL) POCT HGB A1C (05/03/2025 11:52 AM EDT) Hemoglobin A1C 8.1(A) 4.0 - 5.7 % QC Media Lot # [id number] Lot# Expiration Date [id number] Blood 05/03/2025 11:5 2 AM EDT Stewart Perez MD POINT OF CARE TEST ENTER/ED IT ORDERABLES Final Result * Urinalysis Complete (03/15/2025 11:42 AM EDT) Urine (Urine, Random) Historical Provider MD LAB URINE ORDERABLES Barbi l Result * SARS-CoV-2 RNA, Influenza A/B, and RSV RNA, Ql NAAT (02/23/2025 4:25 PM EDT) Pathologist [facility] Influenza A PCR NEGATIVE Negative [facility] Influenza B PCR NEGATIVE Negative [facility] Resp Syncy Virus RNA Qual PCR NEGATIVE Negative [facility] SARS COV2 PCR NEGATIVE Negative [facility] Comment:All test results mus t be correlated with clinical findings.Negative results do not preclude SARS-CoV2, influenza Avirus, influenza B virus and/or RSV infectionand should not be used as the sole basis for treatment orother patient management decisions. Negative results must becombined with clinical observations, patient history, andepidemiological information.This test has not been evaluated for monitoring treatment ofinfection.This test has been authorized by the FDA under an EmergencyUse Authorization (EUA) for use by authorized laboratories.Testing performed on the [employer] GeneXpert utilizingreal-time RT-PCR.All SARS CoV2 and positive influenza A/B results arereported to [facility]. 02/23/2025 4:25 PM EDT 02/23/2025 4:34 PM EDT Generic External Data Provider LAB MICROBIOLOGY - GENERAL ORDERABLES Final Result Performing Organization Address [place] [facility] Co de Phone Number [facility] [address] [place] [phone] * (ABNORMAL) Magnesium (02/23/2025 4:25 PM EDT) [facility] Magnesium 1.5(L) 1.6 - 2.6 mg/dL [facility] 02/23/2025 4:25 PM EDT 02/23/2025 4:34 PM EDT Generic External Data Provider LAB BLOOD ORDERAB LES Final Result Performing Organization Address [place] de Phone Number [facility] [address] [place] [phone] * (ABNORMAL) Lactic Acid (02/23/2025 4:25 PM EDT) [facility] Lactic Acid 2.5(HH) 0.5 - 2.0 mmol/L [facility] Comment:Critical value for t est(s): LACTA Results called to driss back by: NEAL Person calling: NATASHA Date: 02/23/25Time: 1722 02/23/2025 4:25 PM EDT 02/23/2025 4:34 PM EDT Generic External Data Provider LAB BLOOD ORDERAB LES Final Result Performing Organization Address [facility] de Phone Number [facility] [address] [place] [phone] * Hepatitis C Antibody with Reflex to HCV, RNA, Quantitative, Real-Time PCR (12/27/2024 4:25 PM EDT) Hepatitis C Antibody Nonreactive Nonreactive [facility] Comment:Antibodies to HCV no t detected; does not exclude early acuteHCV infection. Blood Venous blood specimen / Unknown 12/27/2024 4:25 PM EDT 12/27/2024 5:45 PM EDT us Stewart Perez MD LAB BLOOD ORDERABLES Final Result Performing Organization Address [facility] Co de Phone Number [facility] [address] [place] [phone] * (ABNORMAL) Lipid Panel, Standard (08/11/2024 10:21 AM EST) Triglycerides 119 <150 mg/dL [facility] Comment:Desirable Triglyceri de: less than 150 mg/dLBorderline High Triglyceride 150-199 mg/dLHigh Triglyceride: 200-499 mg/dLVery High Triglyceride: greater than or equal to 5OO mg/dL Cholesterol 66 <200 mg/dL [facility] Comment:Desirable Cholestero l: less than 200 mg/dLBorderline High Cholesterol: 200-239 mg/dLHigh Cholesterol: greater than 239 mg/dL LDL Cholesterol Calculated 12 <100 mg/dL [facility] Comment:Desirable LDL: less than 100 mg/dLNear Optimal/Above Optimal LDL: 110- 129 mg/dLBorderline High LDL: 130-159 mg/dLHigh LDL: 160-189 mg/dLVery High LDL: greater than or equal to 190 mg/dL HDL Cholesterol 31(L) >40 mg/dL [facility] Comment:Desirable HDL: great er than 40 mg/dL Note: This HDL assay may give artificially low results in patients with liver disease. Blood Venous blood specimen / Unknown 08/11/2024 10:21 AM EST 08/11/2024 2:17 PM EST us Estrella Brunner MD LAB BLOOD ORDERABLES Final Resul t Performing Organization Address [facility]/ZIP Co de Phone Number [facility] [address] [place] [phone] * BI Mammogram Screening Tomosynthesis Bilateral (06/30/2024 10:00 AM EDT) Anatomical Region Laterality Modality Breast Bilateral Mammography 06/30/2024 10:0 0 AM EDT Narrative 07/11/2024 8:50 AM EST [facility] [address] [place], [place] [address] Mammography Report Signed Patient: Deedee Linares MR#: [id number] : 1950 Acct:[id number] Age/Sex: 74 / F ADM Date: 06/30/24 Loc: HO.MAMMO Attending Dr: Estrella Brunner MD Ordering Physician: Estrella Brunner MD Results: 1Negati ve Date of Service: 06/30/24 Follow Up: 1 Year From Orig ina Mammogram Procedure(s): MM tomosynthesis screening BI Accession Number(s): [id number] cc: Estrella Brunner MD EXAMINATION: MM SCREENING [...] 07/11/24 0847 DD/ 1000 TD/TT: 06/30/24 1030 Ent Nurse: Procedure Note Donotuseinterpreter, Image - 07/11/2024 [facility] [address] [place], [place] [address] Mammography Report Signed Patient: Deedee Linares FMR#: [id number] : 1Acct:[id number] Age/Sex: 74 / FADM Date: 06/30/24 Loc: HO.MAMMO Attending Dr: Estrella Brunner MD Ordering Physician: Estrella Brunner MDResults: 1Negati ve Date of Service: 06/30/24Follow Up: 1 Year From Orig inal Mammogram Procedure(s): MM tomosynthesis screening BI Accession Number(s): [id number] cc: Estrella Brunner MD EXAMINATION: MM SCREENING [...] 07/11/24 0847 DD/ 1000 TD/TT: 06/30/24 1030 Ent Nurse: Estrella Brunner MD IMG BI PROCEDURES Final Result * Albumin, Random Urine W/Creatinine (05/13/2023 9:25 AM EDT) Creatinine, Urine 84.04 mg/dL [facility] Microalbumin Urine <5.0 mg/L H [facility] Microalbum Creatinine Ratio Ur TNP <30 ug/mg cr [facility] Comment:Unable to calculate albumin/creatinine ratio due to lowmicroalbumin or creatinine result. 05/13/2023 9:25 AM EDT 05/13/2023 2:23 PM EDT us Estrella Brunner MD LAB URINE ORDERABLES Final Resul t [facility] [address] [place], [place] [phone] * Colonoscopy (08/19/2020) Colonoscopy Normal Normal Historical Provider HEALTH MAINTENANCE Final Result from Last 3 Months or Most Recently Relevant to Health Maintenance Insurance [facility] MEDICARE ADVANTAGE HMO DENTAL - HSN FULL (MEDICAID) [address] [place] [id number] Advance Directives Documents on File Type Date Recorded Patient Chemical Preparer Expl anation MOLST form 03/30/2025 12:38 PM MOLST for Advance Directives and Living Will 03/30/2025 10:00 AM Full Code: MOLST Care Teams Zig Zag Spring Machine Operator Relationship Specialty Start Date End Date Estrella Brunner MD [address] [place] [phone] PCP - General Family Medicine [facility]
[2025-05-15 14:51] VITALS: BP 161/70; PULSE 72; RESP 15; TEMP 36.5; O2SAT 96
[2025-05-15 15:17] LABS: Troponin-I High Sensitivity < 2.7 ng/L (<3.5-17.0)
[2025-05-15 17:10] VITALS: BP 145/69; PULSE 99; RESP 18; TEMP 36.6; O2SAT 71
[2025-05-15 17:16] VITALS: O2SAT 94
--- NOTE | 2025-05-15 17:18 | PC.NURSE ---
Pt is on [facility]L [facility]. She was 95% on 4L here. 92 on 2L. Pt expressed desire to go home. Pt's family brought tank from home.
[2025-05-15 17:46] VITALS: BP 145/69; PULSE 99; RESP 18; TEMP 36.6; O2SAT 94
== END 2025-05-15 17:49 | disposition home or self-care (01) ==
PROVIDERS: Emergency Provider Emergency Medicine Emergency Medical Services; PCP Student in an Organized Health Care Education/Training Program
DX: J44.1 Chronic obstructive pulmonary disease with (acute) exacerbation (principal); R06.02 Shortness of breath; M54.2 Cervicalgia; I25.10 Atherosclerotic heart disease of native coronary artery without angina pectoris; H92.01 Otalgia, right ear; M25.512 Pain in left shoulder; M25.511 Pain in right shoulder; Z99.81 Dependence on supplemental oxygen; Z79.899 Other long term (current) drug therapy
CPT/HCPCS: 36415; 71045; 80053; 82803; 83690; 83880; 84484; 85025; 85652; 86140; 93005; 96374; 99284; 99285; J1885

== ENCOUNTER → 2025-05-15 11:36 | Outpatient (BNV) | payer MEDICARE, MEDICAID, SELFPAY | PROVIDERS: Emergency Provider Emergency Medicine Emergency Medical Services; PCP Student in an Organized Health Care Education/Training Program; Visit Provider Radiology Diagnostic Radiology | DX: R06.00 Dyspnea, unspecified (principal) | CPT/HCPCS: 71045 ==

== ENCOUNTER → 2025-05-15 11:38 | Outpatient (BNV) | payer MEDICARE, MEDICAID, SELFPAY | PROVIDERS: Emergency Provider Emergency Medicine Emergency Medical Services; PCP Student in an Organized Health Care Education/Training Program; Visit Provider Internal Medicine Cardiovascular Disease | DX: R06.02 Shortness of breath (principal); M54.2 Cervicalgia | CPT/HCPCS: 93010 ==

== ENCOUNTER 2025-06-21 09:44 | Emergency (ER) | payer MEDICARE, MEDICAID, SELFPAY ==
--- NOTE | 2025-06-21 10:03 | ED.CPR ---
HPI - CPR General Chief Complaint: Cardiac Arrest/CPR Stated Complaint: CARDIAC ARREST PER EMS Time Seen by Provider: 06/21/25 09:53 Source: family, EMS and old records reviewed Mode of arrival: EMS Limitations: no limitations History of Present Illness ED Provider: DR. Medellin HPI narrative: 75-year-old female with history of CAD, [place], asthma/COPD overlap syndrome on 2 L of oxygen at home, dm T2, CHF patient brought in by EMS after becoming unresponsive while she was in the car with her family, on EMS arrival at the scene patient initially was pulseless with PEA, CPR was initiated by EMS and patient was given 1 mg of epinephrine via left eye O x4, supraglottic I gel airway was established and transported to the hospital. On arrival patient is unresponsive, with Albert CPR in progress, initial rhythm in the hospital who is intubated, still asystole with no pulse patient was given x 5 1 mg of epinephrine, patient also was given 1 amp of bicarb and 1 amp of D50 with no change of the patient's status, bedside cardiac ultrasound was preformed shows no cardiac activity patient was called sick at 9:57 Related Data Home Medications ?Medication ?Instructions ?Recorded ?Confirmed cyanocobalamin (vitamin B-12) 1 tab PO DAILY 08/12/20 03/30/25 1,000 mcg tablet (Vitamin B-12) ferrous sulfate 325 mg (65 mg 1 tab PO BID 08/12/20 03/30/25 iron) tablet (Iron (ferrous sulfate)) oxybutynin chloride 10 mg 1 tab PO DAILY@1200 08/12/20 03/30/25 tablet,extended release 24 hr sertraline 50 mg tablet 1 tab PO BEDTIME 08/12/20 03/30/25 trazodone 50 mg tablet 1 tab PO BEDTIME 08/12/20 03/30/25 aspirin 81 mg tablet,delayed 81 mg PO DAILY 03/11/22 03/30/25 release atorvastatin 80 mg tablet 80 mg PO BEDTIME 04/06/24 03/30/25 pantoprazole 40 mg tablet,delayed 40 mg PO BID@0630,1630 04/06/24 03/30/25 release ergocalciferol (vitamin D2) 1,250 1,250 mcg PO [place] 05/29/24 03/30/25 mcg (50,000 unit) capsule magnesium oxide 400 mg (241.3 mg 400 mg PO BID 05/29/24 03/30/25 magnesium) tablet furosemide 20 mg tablet (Lasix) 20 mg PO DAILY PRN Heart failure 01/11/25 03/30/25 symptoms ezetimibe 10 mg tablet 10 mg PO DAILY 02/23/25 03/30/25 ipratropium 0.5 mg-albuterol 3 mg 3 ml inhalation Q4H PRN wheezing 02/23/25 03/30/25 (2.5 mg base)/3 mL nebulization soln isosorbide mononitrate 30 mg 30 mg PO DAILY 02/23/25 03/30/25 tablet,extended release 24 hr metformin 850 mg tablet 850 mg PO BID 02/23/25 03/30/25 metoprolol succinate 25 mg 25 mg PO DAILY 02/23/25 03/30/25 tablet,extended release 24 hr nitroglycerin 0.4 mg sublingual 0.4 mg sublingual Q5M PRN Chest 02/23/25 03/30/25 tablet Pain theophylline 400 mg 400 mg PO DAILY 02/23/25 03/30/25 tablet,extended release 24 hr acetaminophen 500 mg tablet 500 mg PO Q6H PRN Fever/Pain 03/30/25 03/30/25 azelastine 137 mcg-fluticasone 50 1 spray intranasal BID 03/30/25 03/30/25 mcg/spray nasal spray cetirizine 10 mg tablet 10 mg PO DAILY PRN Allergy Symptoms 03/30/25 03/30/25 Previous Rx's ?Medication ?Instructions ?Recorded walker #1 ea 10/13/21 ibuprofen 600 mg tablet 600 mg PO Q8H PRN pain 10 days #20 10/25/22 tabs fluticasone fur. 200 mcg-umeclid 1 ea PO DAILY #60 ea 03/14/25 62.5 mcg-vilant 25 mcg inhalat.powder (Trelegy Ellipta) evolocumab 140 mg/mL subcutaneous 140 mg subcut Q2W #6 mL 03/30/25 pen injector (Daniella Mendosa) prednisone 20 mg tablet 40 mg (2 x 20 mg) PO DAILY #10 tabs 04/03/25 cyclobenzaprine 5 mg tablet 5 mg PO BID PRN muscle spasm or 05/16/25 pain #14 tabs ipratropium 20 mcg-albuterol 100 1 puff PO Q4H PRN SOB/wheezing #4 05/29/25 mcg/actuation mist for inhalation grams (Combivent Respimat) albuterol sulfate 90 mcg/actuation 2 puff inhalation Q4H PRN 06/05/25 aerosol inhaler Shortness Of Breath Or Wheezing #1 ea Allergies Allergy/AdvReac Type Severity Reaction Status Date / Time amoxicillin Allergy Difficulty Verified 06/21/25 10:18 Breathing levofloxacin (From Levaquin) AdvReac Intermediate Muscle Pain Verified 06/21/25 10:18 Pain Med Sensitivity Allergy Unknown none Uncoded 06/21/25 10:18 Review of Systems Review of Systems: Yes Unobtainable due to mental condition PMFSH Past Medical History Medical History CHF (congestive heart failure) Supplemental oxygen dependent Personal history of nicotine dependence Asthma-COPD overlap syndrome Pulmonary hypertension Acute exacerbation of congestive heart failure Acute respiratory failure with hypoxia Pneumonia Hyperlipidemia MRSA (methicillin resistant Staphylococcus aureus) Anxiety and depression History of blood transfusion Myocardial infarct Diarrhea Arthritis Diabetes GERD (gastroesophageal reflux disease) Coronary artery disease Surgical History Hx of colonoscopy Hx of tonsillectomy Hx of cholecystectomy H/O: hysterectomy History of total right knee replacement (TKR) History of cardiac catheterization Family History Family History Father Colon cancer Social History Social History Household Members: Children Housing: Apartment Are you a primary ambulatory care nurse to a significant other at home: No Do you presently have visiting nurse or other home services: Yes Alcohol intake: unknown Patient Tobacco Use Status: Former Tobacco user Tobacco use type: Cigarette Years Smoked: 40 e-Cigarette/Vaping Use: Never Used Second Hand Smoke Exposure: No Advance Directives: Yes Advance Directives on File: Yes Advance Directives Date on File: 12/25/21 service: No Current occupational status: retired Physical Exam Vital Signs: Vital Signs: BMI result Body Mass Index 31.3 General: Unresponsive. HEENT: No sign of trauma. Chest: CPR is in process, no step-off, no deformity, no sign of trauma. Bilateral breathing sound, patient is intubated. Heart: No heart sounds. Abdominal exam, distended, no deformity, no ecchymosis. Extremities: No acute deformity, no trauma. Neuro: Unresponsive. Course Reevaluation(s) Reevaluation #1: Was pronounced at 950 sudden on 07/22/2025, case was discussed with medical videographer and was declined by Gilles Solorzano case # [id number]. Family was notified and will see the room 5 after discontinue all the tubes and IV access. Time: 11:10 Medical Decision Making Differential Diagnosis Differential Diagnoses: The differential diagnosis associated with the presentation includes (Cardiac arrest) Admission/Observation Consideration of admission/observation: Escalation of care including admission/observation considered Lab Data Labs: Lab Results 06/21/25 Range/Units 09:51 POC Glucose 159 H (60-115) mg/dL Procedures Intubation Intubation Type:: Emergency Endotracheal Intubation Intubation Date:: 06/21/25 Time out performed: Yes sedative: none Laryngoscope: Molina Discharge Plan Discharge Clinical Impression: Cardiopulmonary arrest Patient Disposition:
[2025-06-21 10:15] VITALS: BMI 31.3
[2025-06-21 10:28] LABS: Glucose, Whole Blood 159 mg/dL (60-115)
--- NOTE | 2025-06-21 10:36 | PC.NURSE ---
patient witnessed cardiac arrest, was in car with family when she felt sweaty and went unresponsive, no cpr prior to ems arrival. patient was bradycardic and lost pulses. cpr in progress with Kristal BLEVINS, IO in left lower extremity, 4 epi on board ELECTRICAL WIRER. poc for ems 233. patient arrival into ED [address] Medellin attending in ED. please code sheet for further information and documentation. patient TOD 0957, patient post mortem care completed, no tattoos/open areas noted, no trauma noted. patient has bilat surgical scarring to knees. family notification made by ED attending in family room. patient belongings at bedside, no jewelry on patient. [facility] contacted, spoke with Merlyn, Case accepted #[id number].
--- NOTE | 2025-06-21 11:03 | MHC.EDTECH ---
@1763 CALL TO HULL OUTFIT SUPERVISOR OFFICE @ DR CROCKETT REQUEST, RAINE ANSWERS AND TAKES PT INFO THEN SPEAKS WITH DR CROCKETT
--- NOTE | 2025-06-21 11:12 | PC.NURSE ---
ett removed intact
--- NOTE | 2025-06-21 11:18 | PC.NURSE ---
family at bedside
--- NOTE | 2025-06-21 11:18 | MHC.EDTECH ---
@11:06 called [facility], not able to get through to medical records. @11:[address] Perez who is pt PCP with time of and with pt information.
--- NOTE | 2025-06-21 12:30 | PC.NURSE ---
patient home Chemo [facility] [place]
--- OUTSIDE RECORDS SUMMARY | 2025-06-21 12:42 | XMS_ITS | Encounter Summary ---
Author Organization [employer] Address [address] [place] [address] Care Team Providers Care Zinc Miner Blasting Name Role Phone Estrella Brunner MD Primary Care Provider Reason for Visit * Reason Onset Date Comments callback request 07/11/2024 Encounter Details Date Type Department Care Team ([facility] st Contact Info) Description 07/11/[address] [facility] MEDICINE [address] [place] [address] Estrella Brunner MD [address] [place], [place] [phone] callback request Social History Tobacco Use Types [...] Description 07/12/2025 10:00 AM EST Office Visit [facility] OPTOMETRY [address] [place] [address] Mary Kate Kerr, OD [address] [place] [address] documented as of this encounter Visit Diagnoses Not on filedocumented in this encounter Additional Health Concerns Assessment Noted Time PHQ-9 Depression Total Score: 1 04/29/20 23 10:40 AM EDT documented as of this encounter Care Teams Zinc Miner Blasting Relationship Specialty Start Date End Date Estrella Brunner MD [address] [place] [address] PCP - General Family Medicine 08/17/[facility] documented as of this encounter
--- OUTSIDE RECORDS SUMMARY | 2025-06-21 12:42 | XMS_ITS | Encounter Summary ---
Author Organization [employer] Address [address] [place] [address] Care Team Providers Care Bar Hostess Name Role Phone Estrella Brunner MD Primary Care Provider [phone] Reason for Visit * Reason Onset Date Comments Referral 12/15/2022 Encounter Details Date Type Department Care Team ([facility] st Contact Info) Description 12/15/2022 Telephone [facility] MEDICINE [address] [place] [address] Estrella Brunner MD [address] [place] [address] Referral Social History Tobacco Use Types Packs/Day [...] [facility]. Please contact pt at [phone] documented in this encounter Plan of Treatment Upcoming Encounters Date Type Department Care Team (Late st Contact Info) Description 07/12/2025 10:00 AM EST Office Visit [facility] OPTOMETRY [address] [place] [address] Mary Kate Kerr, OD [address] [place], [place] [phone] documented as of this encounter Visit Diagnoses Not on filedocumented in this encounter Care Teams Bar Hostess Relationship Specialty Start Date End Date Estrella Brunner MD [address] [place] [address] PCP - General Family Medicine 08/17/12 [facility] documented as of this encounter
--- OUTSIDE RECORDS SUMMARY | 2025-06-21 12:42 | XMS_ITS | Encounter Summary ---
Author Organization [employer] Address [address] [place] [address] Care Team Providers Care Supervisor Sewing Department Name Role Phone Estrella Brunner MD Primary Care Provider [phone] Encounter Details Date Type Department Care Team ([facility] Contact Info) Description 01/14/[address] [facility] CHC MED & PEDS [address] [place], [place] [phone] Linda Arellano LPN Social History Tobacco Use [...] Upcoming Encounters Date Type Department Care Team ([facility] Contact Info) Description 07/12/2025 10:00 AM EST Office [address] [facility] OPTOMETRY [address] [place], [place] [phone] Mary Kate Kerr, EMMANUELLE [address] [place], [place] [phone] documented as of this encounter Visit Diagnoses Not on filedocumented in this encounter Care Teams Supervisor Sewing Department Relationship Specialty Start Date End Date Estrella Brunner MD [address] [place] [address] PCP - General Family Medicine 08/17/12 [facility] 06/05/24 documented as of this encounter
--- OUTSIDE RECORDS SUMMARY | 2025-06-21 12:42 | XMS_ITS | Encounter Summary ---
Author Organization [employer] Address [address] [place] [address] Care Team Providers Care Health Technician Hearing Name Role Phone Estrella Brunner MD Primary Care Provider [phone] Encounter Details Date Type Department Care Team (Late st Contact Info) Description 10/16/2022 Orders Only [facility] CHC MED & PEDS [address] [place], [place] [phone] Rissa Su LPN Social History Tobacco Use [...] Description 07/12/2025 10:00 AM EST Office Visit [facility] OPTOMETRY [address] [place], [place] [phone] Mary Kate Kerr, EMMANUELLE [address] [place] [address] documented as of this encounter Visit Diagnoses Not on filedocumented in this encounter Care Teams Health Technician Hearing Relationship Specialty Start Date End Date Estrella Brunner MD [address] [place] [address] PCP - General Family Medicine 08/17/12 [facility] 06/05/24 documented as of this encounter
--- OUTSIDE RECORDS SUMMARY | 2025-06-21 12:42 | XMS_ITS | Encounter Summary ---
Author Organization [employer] Address [address] [place] [address] Care Team Providers Care Wide Area Network Systems Administrator Name Role Phone Estrella Brunner MD Primary Care Provider [phone] Encounter Details Date Type Department Care Team (Late st Contact Info) Description 03/21/2025 Orders Only [facility] CHC MED & PEDS [address] [place], [place] [phone] ProviderYolanda MD Social History Tobacco Use Types [...] Description 07/12/2025 10:00 AM EST Office Visit [facility] OPTOMETRY [address] [place] [address] Mary Kate Kerr OD [address] [place] [address] documented as of this encounter Procedures Procedure [...] documented as of this encounter Care Teams Wide Area Network Systems Administrator Relationship Specialty Start Date End Date Estrella Brunner MD [address] [place] [address] PCP - General Family Medicine 08/17[facility] documented as of this encounter
--- OUTSIDE RECORDS SUMMARY | 2025-06-21 12:42 | XMS_ITS | Clinical Summary ---
Author Organization [employer] Address [address] [facility] 7[address] [place] [address] Care Team Providers Care Surface Grinder Name Role Phone Estrella Brunner MD Primary Care Provider [phone] Allergies Active Allergy Reactions Criticality Noted Date Comments Amoxicillin Shortness of breath,Itching High 023 Levetiracetam Angioedema,Headache,Swelling 10/07 Levofloxacin 07/23/2023 Medications Dymista 137-50 MCG/ACT suspension Administer 1 spray into each nostril 2 times daily. 3 Active cetirizine (ZyrTEC) 10 MG tablet Take 10 mg by mouth in the morning. 2 Active pantoprazole (ProtoNix) 40 MG EC tablet 2 times daily. 8 Active albuterol 108 (90 Base) MCG/ACT inhaler Inhale 2 puffs every 4 (four) hours if needed for wheezing. PROAIR ONLY 18 g 3 Active nitroglycerin (Nitrostat) 0.[address] 1 tablet (0.4 mg) under the tongue every 5 (five) minutes if needed for chest pain. 90 tablet 4 Active Diclofenac Sodium (Voltaren) 1 % gel Use topical BID 100 g 3 4 Active ergocalciferol (Vitamin D2) 1.25 MG (98802 UT) capsule Take 1 capsule by mouth 1 (one) time per week. 4 Active Repatha SureClick 140 MG/ML injection Inject 1 mL under the skin every 14 (fourteen) days. 4 Active ezetimibe (Zetia) 10 MG tablet Take 1 tablet by mouth Once per day. 4 Active Trelegy Ellipta 200-62.5-25 MCG/ACT aerosol powder Inhale 1 puff 1 (one) time each day at the same time. 4 Active ibuprofen 600 MG tablet Take 1 tablet by mouth 3 times daily. 1 Active Combivent Respimat 20-100 MCG/ACT inhaler Inhale 1 puff every 4 (four) hours. 4 Active isosorbide mononitrate ER (Imdur) 30 MG 24 hr tablet Take 1 tablet by mouth Once per day. 4 Active magnesium oxide (Mag-Ox) 400 (240 Mg) MG tablet Take 1 tablet by mouth 2 times daily. 4 Active metoprolol succinate XL (Toprol-XL) 25 MG 24 hr tablet Take 1 tablet by mouth in the morning. 4 Active Blood Pressure kitIndications:Es sential (primary) hypertension Use BP kit to check BP daily 1 kit 4 Active Aspirin Low Dose 81 MG EC tablet TAKE 1 TABLET BY MOUTH EVERY MORNING 30 tablet 11 4 Active cyanocobalamin (Vitamin B-12) 1000 MCG tablet TAKE 1 TABLET BY MOUTH EVERY MORNING 30 tablet 11 5 Active traZODone (Desyrel) 50 MG tablet TAKE 1 TABLET BY MOUTH AT BEDTIME 30 tablet 11 5 Active Blood Glucose Monitoring Suppl (ONE TOUCH ULTRA 2) w/Device kit USE DIRECTED TO TEST BLOOD SUGAR TWICE DAILY 1 kit 5 Active oxybutynin XL (Ditropan-XL) 10 MG 24 hr tablet TAKE 1 TABLET BY MOUTH EVERYDAY AT NOON 30 tablet 11 5 Active metFORMIN (Glucophage) 850 MG tabletIndications :Type 2 diabetes mellitus without complication, without long-term current use of insulin (HCC) Take 1 tablet (850 mg) by mouth with breakfast and with evening meal. 60 tablet 11 5 12/28/19 26 Active Lancets (OneTouch Delica Plus [id number]) mis Check sugars BID 100 each 3 5 Active glucose blood (OneTouch Ultra Test) test stripIndications: Type 2 diabetes mellitus without complication, without long-term current use of insulin ([facility]) Check sugars BID 50 strip 5 5 Active theophylline ER (Uniphyl) 400 MG 24 hr tablet Take 1 tablet by mouth Once per day. 5 Active Acetaminophen 500 MG capsule TAKE 1 CAPSULE BY MOUTH EVERY 6 HOURS NEEDED FOR PAIN OR FEVER 30 capsule 5 Active Alcohol Swabs (Alcohol Prep) 70 % pads USE DIRECTED TWICE DAILY 100 each 5 Active Ferrous Sulfate (iron) 325 (65 Fe) MG tablet TAKE 1 TABLET BY MOUTH TWICE DAILY IN THE MORNING AND IN THE EVENING 60 tablet 5 Active glipiZIDE (Glucotrol) 5 MG tablet TAKE 1 TABLET BY MOUTH EVERY MORNING 30 tablet 1 5 Active Respiratory Therapy Supplies (Aerobika) deviceIndications :Type 2 diabetes mellitus without complication, without long-term current use of insulin ([facility]),Chronic obstructive pulmonary disease with acute exacerbation (CMS/HCC) ([facility]) To use 2 times a day 1 each 5 Active sertraline (Zoloft) 50 MG tabletIndications :Major depressive disorder with single episode, in partial remission (CMS/HCC) Take 2 tablets (100 mg) by mouth at bedtime. 30 tablet 5 Active EPINEPHrine (Epipen) 0.3 MG/0.3ML injection syringeIndication s:Anaphylaxis, subsequent encounter Inject 0.3 mL (0.3 mg) as directed 1 (one) time for 1 dose. use as directed for allergic reaction and then call 911 1 each 5 Active atorvastatin (Lipitor) 80 MG tablet TAKE 1 TABLET BY MOUTH AT BEDTIME 90 tablet 1 5 Active Accu-Chek Softclix Lancets lancets Use as instructed 100 each 5 05/29/20 26 Active glucose blood (Accu-Chek Guide Test) test strip Check blood glucose 3 times daily. 100 each 5 05/29/20 26 Active Blood Glucose Monitoring Suppl (Accu-Chek Guide Me) w/Device kit 1 Units 3 times daily. 1 kit 5 Active Hospital, Clinic, or Other Facility Administered Medication [...] infarction 02/03/2022 Renal osteodystrophy 02/03/2022 Severe obesity ([facility]) 02/03/2022 Stage 3b chronic kidney disease ([facility]) 2021 Acute on chronic diastolic (congestive) heart fa ilure 11/17/2021 Chronic obstructive pulmonar y disease with acute exacerbation ([facility]) 11/17/2021 Essential (primary) hypertension 11/14/2021 Assessment & [...] Encounters Date Type Department Care Team Description 06/21/2025 Orders Only GENERIC EXTERNAL DATA DEPARTMENT Provider, Generic External Data 06/04/2025 Travel 05/17/2025 Telephone [facility] [address] [facility] [place] [address] Estrella Brunner MD 05/16/[address] [facility] [address] [place] [phone] Estrella Brunner MD Prior Authorization 05/15/2025 Orders Only GENERIC EXTERNAL DATA DEPARTMENT Provider, Generic External Data 05/15/2025 Telephone [facility] [address] [facility] [place] [address] Estrella Brunner MD FYI 05/15/2025 Travel 05/13/[address] [facility] [address] [place] [phone] Stewart Perez MD 05/10/[address] [address] Estrella Brunner MD Verbal order 05/04/2025 Telephone [facility] [address] [facility] [place] [address] Estrella Brunner MD verbal orders 05/04/2025 Telephone [facility] [address] [facility] [place] [address] Estrella Brunner MD Durable Medical Equipment 05/03/2025 10:00 AM EDT Office Visit [facility] [address] [place] [address] Stewart Perez MD Type 2 diabetes mellitus without complication, without long-term current use of insulin (CMS/HCC) (Primary Dx); Chronic obstructive pulmonary disease with acute exacerbation (CMS/HCC); Major depressive disorder with single episode, in partial remission (CMS/HCC); Anaphylaxis, subsequent encounter 05/03/2025 Travel 05/02/[address] [facility] [address] [place] [phone] Alina Muñoz, PharmD 05/02/2025 Refill [facility] [address] [place] [address] Stewart Perez MD 04/30/[address] [facility] [address] [place] [address] Estrella Brunner MD Appointment Request 04/26/2025 Travel 04/20/2025 Telephone [facility] [address] [place] [address] Estrella Brunner MD verbal orders 04/20/2025 Telephone [facility] [address] [place] [address] Estrella Brunner MD 04/19/2025 Patient Outreach [facility] [address] [place] [address] Estrella Brunner MD Transition Of Care (Tcm) (HDF scheduled. ) 04/15/2025 Refill [facility] [address] [place] [address] Estrella Brunner MD 04/04/2025 Patient Outreach [facility] [address] [place] [address] Estrella Brunner MD discharge request (UNABLE TO ACQUIRE) 04/03/[address] [facility] [address] [place] [address] Estrella Brunner MD 03/30/2025 9:30 AM EDT Office Visit [facility] [address] [place] [address] Estrella Brunner MD Acute respiratory disease (Primary Dx) 03/30/2025 Orders Only [facility] External Provider, [facility] 03/30/2025 Travel 03/29/2025 Refill [facility] [address] [place] [address] Estrella Brunner MD 03/26/[address] [facility] [address] [place] [address] Alina Muñoz, PharmD 03/24/2025 Travel 03/22/[address] [facility] [address] [facility] [place] [address] Estrella Brunner MD 03/22/2025 Orders Only [facility] [address] [place] [address] Estrella Brunner MD Type 2 diabetes mellitus without complication, without long-term current use of insulin ([facility]) 03/22/2025 Telephone [facility] [address] [facility] [place] [address] Estrella Brunner MD Medication Question 03/22/[address] [facility] [address] [place], [place] [phone] Estrella Brunner MD 03/21/2025 Orders Only [facility] [address] [facility] [place], [place] [phone] Provider, MD Yolanda from Last 3 Months Immunizations Immunization Administration [...] 07/12/2025 10:00 AM EST Office Visit [facility] OPTOMETRY [address] [place] [address] Mary Kate Krer, OD [address] [place] [address] Health Maintenance Due Date Last Done Comments CT Colonography 1950 Dental Prophylaxis 1950 Dental X-Ray: Bitewings 1950 FIT DNA/Cologuard 1950 FIT 1950 FOBT 1950 Sigmoidoscopy 1950 Alcohol/Substance Use Screening 1963 RSV Patients and Patients Aged 60 years or older (1 - Risk 60-74 years 1-dose series) 2011 Dental Oral Exam 11/10/2023 05/11/2023 Depression Screening 04/29/2024 04/29/2023, 04/29/20 23 Diabetes: Foot Exam 04/29/2024 04/29/2023, 04/29/2023, 04/29/2023, Additional history exists Eye Exam 01/07/2025 01/07/2023, 12/2022, 01/07/2023, Additional history exists COVID-19 Vaccine ( season) 2025 06/08/2024, 08/04/2022, 10/16/2021, Additional history exists Influenza Vaccine (#1) 2025 , 07/23/2023, 06/30/2022, Additional history exists Mammogram 06/30/2025 06/30/2024, 11/2022, 03/27/2019, Additional history exists Diabetes: Hemoglobin A1C 08/03/2025 025, 12/27/2024, 06/08/2024, Additional history exists Lipid Panel 08/11/2025 08/11/2024, 02/2024, 05/13/2023, Additional history exists Colonoscopy 08/19/2025 [...] Procedure Name Priority Date/Time Associated Diagnosis Comments GLUCOSE, WHOLE BLOOD Routine 06/21/2025 9:51 AM EDT HIGH SENSITIVITY TROPONIN I Routine 05/15/2025 2:49 PM EDT XR CHEST 1 VIEW Routine 05/15/2025 12:22 [...] insulin (CMS/HCC) POCT GLYCATED HEMOGLOBIN, TOTAL Routine 05/03/2025 11:52 AM EDT Type 2 diabetes mellitus without complication, without long-term current use of insulin (CMS/HCC) XR CHEST 1 VIEW Routine 03/30/2025 10:30 AM EDT HEPATITIS C AB W/REFL TO HCV [...] Relevant to Health Maintenance Results * (ABNORMAL) Glucose, Whole Blood (06/21/2025 9:51 AM EDT) Glucose, Whole Blood 159(H) 60 - 115 mg/dL [facility] Comment:METER #: [id number] 06/21/2025 9:51 AM EDT 06/21/2025 10:27 AM EDT Generic External Data Provider LAB BLOOD ORDERAB LES Final Result Performing Organization Address [facility] Co de Phone Number [facility] [address] [place] [phone] * High Sensitivity Troponin I (05/15/2025 2:49 PM EDT) Only the most recent of2 resultswithin the time period is included. [facility] TROPONIN I HIGH SENSITIVITY <2.7 <3.5 - 17.0 ng/L [facility] Comment:The Arana high sens itivity Troponin-I results should beused in conjunction with other diagnostic information suchas ECG, clinical observations and information, and patientsymptoms to aid in the diagnosis of [place]. 05/15/2025 2:49 PM EDT 05/15/2025 2:51 PM EDT us Generic External Data Provider LAB BLOOD ORDERAB LES Final Result Performing Organization Address [facility] Co de Phone Number [facility] [address] [place] [phone] * XR Chest 1 View (05/15/2025 12:22 PM EDT) Only the most recent of2 resultswithin the time period is included. Anatomical Region Laterality Modality Chest Radiographic Ayde ging 05/15/2025 12:2 2 PM EDT Narrative 05/15/2025 12:35 PM EDT [address] [address] XRay Report Signed Patient: Deedee Linares MR#: [id number] : 1950 Acct:[id number] Age/Sex: 75 / F ADM Date: 05/15/25 Loc: HO.ED Attending Dr: Ordering Physician: Mikey Irene MD Date of Service: 05/15/25 Procedure(s): XR chest 1V Accession Number(s): [id number] cc: Estrella Brunner MD; Mikey Irene MD [...] 05/15/25 1232 DD/ 1222 TD/TT: 05/15/25 1227 Department Of Sociology Chair: Procedure Note Donotuseinterpreter, Image - 05/15/[address] [address] XRay Report Signed Patient: Deedee Linares FMR#: [id number] : 1950cct:[id number] Age/Sex: 75 / FADM Date: 05/15/25 Loc: HO.ED Attending Dr: Ordering Physician: Mikey Irene MD Date of Service: 05/15/25 Procedure(s): XR chest 1V Accession Number(s): [id number] cc: Estrella Brunner MD; Mikey Irene MD [...] 05/15/25 1232 DD/ 1222 TD/TT: 05/15/25 1227 Department Of Sociology Chair: [facility] External Provider IMG XR PROCEDURES Edited Result - Final * (ABNORMAL) VENOUS BLOOD GAS (05/15/2025 12:05 PM EDT) VBG pH 7.44(H) 7.32 - 7.43 [facility] Comment:METER #: [id number] additional_comment: Cb ditolc VBG PCO2 37 mmHg [facility] Comment:METER #: [id number] additional_comment: Cb ditolc VBG PO2 57 mmHg [facility] Comment:METER #: [id number] additional_comment: Cb ditolc VBG Base Excess 1.9 mmol/L [facility] Comment:METER #: [id number] additional_comment: Cb ditolc VBG HCO3 25 22 - 26 mmol/L [facility] Comment:METER #: [id number] additional_comment: Cb ditolc O2 Sat, Kal 81.0 % [facility] Comment:METER #: [id number] additional_comment: Cb ditolc 05/15/2025 12:0 5 PM EDT 05/15/2025 12:08 PM EDT us Generic External Data Provider LAB BLOOD ORDERAB LES Final Result [facility] [address] [place] [phone] [phone] * (ABNORMAL) CBC auto differential (05/15/2025 11:59 AM EDT) White Blood Count 9.4 4.8 - 10.8 X10*3/uL [facility] Red Blood Count 3.96(L) 4.20 - 5.50 X10*6/uL [facility] Hemoglobin 11.1(L) 12.0 - 16.0 g/dl [facility] Hematocrit 34.7(L) 37.0 - 47.0 % [facility] Mean Corpuscular Volume 87.6 80.0 - 98.0 fL [facility] Mean Corpuscular Hemoglobin 28.0 27.0 - 33.0 pg [facility] Mean Corpuscular HGB Conc 32.0 31.0 - 35.0 g/dl [facility] Red Cell Distribution Width 16.3(H) 11.0 - 16.0 % [facility] Platelet Count 265 160 - 400 X10*3/uL [facility] Mean Platelet Volume 9.6 9.4 - 12.3 fL [facility] Neutrophils Percent Auto 78.8(H) 45 - 73 % [facility] Imm Gran Pct Auto 0.9(H) 0.0 - 0.4 % [facility] Lymphocytes Percent Auto 12.3(L) 20 - 40 % [facility] Monocytes Percent Auto 7.6 2 - 11 % [facility] Eosinophils Percent Auto 0.0 0 - 4 % [facility] Basophils Percent Auto 0.4 0 - 2 % [facility] NRBC Pct Auto 0.0 0.0 - 0.2 /100WBC [facility] Neutrophils Absolute Auto 7.4 2.0 - 8.3 x10*3/uL [facility] Imm Gran Abs Auto 0.08(H) 0.00 - 0.03 X10*3/uL [facility] Lymphocytes Absolute Auto 1.2 1.2 - 4.9 X10*3/uL [facility] Monocytes Absolute Auto 0.7 0.1 - 1.2 X10*3/uL [facility] Eosinophils Absolute Auto 0.0 0.0 - 0.4 X10*3/uL [facility] Basophils Absolute Auto 0.0 0.0 - 0.2 X10*3/uL [facility] NRBC Abs Auto 0.000 0.0 - 0.012 X10*3/uL [facility] 05/15/2025 11:5 9 AM EDT 05/15/2025 12:02 PM EDT us Generic External Data Provider LAB BLOOD ORDERAB LES Final Result Performing Organization Address [facility] de Phone Number [facility] [address] [place] [phone] * (ABNORMAL) Sed Rate by Modified Colleenren (05/15/2025 11:59 AM EDT) Erythrocyte Sedimentation Rate 38(H) 0 - 20 MM/HR [facility] Comment:Patients with polycy themia and many hemoglobin abnormalitiesmay have depressed sed rates whereas patients with anemiamay have elevated sed rates. 05/15/2025 11:5 9 AM EDT 05/15/2025 12:02 PM EDT us Generic External Data Provider LAB BLOOD ORDERAB LES Final Result Performing Organization Address [facility] Co de Phone Number [facility] [address] [place] [phone] * (ABNORMAL) C-reactive Protein (05/15/2025 11:59 AM EDT) [facility] C Reactive Protein 3.72(H) < or = 0.50 mg/dL [facility] 05/15/2025 11:5 9 AM EDT 05/15/2025 12:02 PM EDT Generic External Data Provider LAB BLOOD ORDERAB LES Final Result Performing Organization Address [facility]/ZIP Co de Phone Number [facility] [address] [place] [phone] * (ABNORMAL) B Type Natriuretic Peptide (BNP) (05/15/2025 11:59 AM EDT) [facility] B Type Natriuretic Peptide 116(H) <100 pg/mL [facility] 05/15/2025 11:5 9 AM EDT 05/15/2025 12:02 PM EDT Generic External Data Provider LAB BLOOD ORDERAB LES Final Result Performing Organization Address City/[facility]/ZIP Co de Phone Number [facility] [address] [place] [phone] * Lipase (05/15/2025 11:59 AM EDT) Pathologist [facility] Lipase 12 8 - 78 U/L [facility] 05/15/2025 11:5 9 AM EDT 05/15/2025 12:02 PM EDT us Generic External Data Provider LAB BLOOD ORDERAB LES Final Result Performing Organization Address [facility]/ZIP Co de Phone Number [facility] [address] [place] [phone] * (ABNORMAL) Comprehensive Metabolic Panel (05/15/2025 11:59 AM EDT) Sodium 143 135 - 145 mmol/L [facility] Potassium 4.1 3.3 - 5.1 mmol/L [facility] Comment:Slight Hemolysis.Int erpret result with caution. Chloride 109(H) 96 - 108 mmol/L [facility] Carbon Dioxide 24 22 - 29 mmol/L [facility] Anion Gap 14 12 - 20 [facility] Urea Nitrogen (BUN) 16 9 - 16 mg/dL [facility] Creatinine, Serum 0.75 0.5 - 1.4 mg/dL [facility] Creatinine Clr Calc Pharmacy 64.0 [facility] Comment:Provided height and weight: 154.94 cm,82.4 kg.eGFR (calculated from the MDRD study equation) and eCrCl(calculated from the Cockcroft-Gault equation) are based ondifferent parameters and may not yield comparable results.If eCrCl result is absurd, please check patient'sheight/weight. Estimated Glomerular Filt Rate >60 [facility] Comment:Chronic Kidney Disea se: Estimated GFR < 60 mL/min/1.97x4Rewcva Kidney Disease: Estimated GFR < 15 mL/min/1.73m2 Glucose 99 60 - 115 mg/dL [facility] Calcium 9.2 8.4 - 10.2 mg/dL [facility] Bilirubin, Total 0.5 0.0 - 1.0 mg/dL [facility] Aspartate Amino Transferase 26 5 - 31 U/L [facility] Comment:Slight Hemolysis.Int erpret result with caution. Alanine Aminotransferase 9 0 - 31 U/L [facility] Total Protein 7.1 6.5 - 8.0 g/dL [facility] Albumin Level 4.3 3.5 - 5.0 g/dL [facility] Alkaline Phosphatase 97 39 - 117 U/L [facility] 05/15/2025 11:5 9 AM EDT 05/15/2025 12:02 PM EDT us Generic External Data Provider LAB BLOOD ORDERAB LES Final Result [facility] [address] [place] [phone] * (ABNORMAL) POCT Glucose (05/03/2025 11:53 AM EDT) Pathologist [facility] Glucose Blood, POC 256(A) 60 - 200 mg/dL QC Media Lot # [id number] Lot# Expiration Date Comment:random Blood Capillary blood specimen / Unknown 05/03/2025 11:53 AM EDT us Stewart Perez MD POINT OF CARE TEST ENTER/ED IT ORDERABLES Final Result * (ABNORMAL) POCT HGB A1C (05/03/2025 11:52 AM EDT) [facility] Hemoglobin A1C 8.1(A) 4.0 - 5.7 % QC Media Lot # [id number] Lot# Expiration Date Blood 05/03/2025 11:5 2 AM EDT Stewart Perez MD POINT OF CARE TEST ENTER/ED IT ORDERABLES Final Result * Hepatitis C Antibody with Reflex to HCV, RNA, Quantitative, Real-Time PCR (12/27/2024 4:25 PM EDT) [facility] Hepatitis C Antibody Nonreactive Nonreactive [facility] Comment:Antibodies to HCV no t detected; does not exclude early acuteHCV infection. Blood Venous blood specimen / Unknown 12/27/2024 4:25 PM EDT 12/27/2024 5:45 PM EDT Stewart Perez MD LAB BLOOD ORDERABLES Final Result [facility] [address] [place] [phone] * (ABNORMAL) Lipid Panel, Standard (08/11/2024 10:21 AM EST) Triglycerides 119 <150 mg/dL [facility] Comment:Desirable Triglyceri de: less than 150 mg/dLBorderline High Triglyceride 150-199 mg/dLHigh Triglyceride: 200-499 mg/dLVery High Triglyceride: greater than or equal to 5OO mg/dL Cholesterol 66 <200 mg/dL [facility] Comment:Desirable Cholestero l: less than 200 mg/dLBorderline High Cholesterol: 200-239 mg/dLHigh Cholesterol: greater than 239 mg/dL LDL Cholesterol Calculated 12 <100 mg/dL [facility] Comment:Desirable LDL: less than 100 mg/dLNear Optimal/Above Optimal LDL: 110- 129 mg/dLBorderline High LDL: 130-159 mg/dLHigh LDL: 160-189 mg/dLVery High LDL: greater than or equal to 190 mg/dL HDL Cholesterol 31(L) >40 mg/dL [facility] Comment:Desirable HDL: great er than 40 mg/dL Note: This HDL assay may give artificially low results in patients with liver disease. Blood Venous blood specimen / Unknown 08/11/2024 10:21 AM EST 08/11/2024 2:17 PM EST us Estrella Brunner MD LAB BLOOD ORDERABLES Final Resul t [facility] [address] [place] [phone] [phone] * BI Mammogram Screening Tomosynthesis Bilateral (06/30/2024 10:00 AM EDT) Anatomical Region Laterality Modality Breast Bilateral Mammography 06/30/2024 10:0 0 AM EDT Narrative 07/11/2024 8:50 AM EST [facility] [address] [place] [address] Mammography Report Signed Patient: Deedee Linares MR#: [id number] : 1950 Acct:[id number] Age/Sex: 74 / F ADM Date: 06/30/24 Loc: HO.MAMMO Attending Dr: Estrella Brunner MD Ordering Physician: Estrella Brunner MD Results: 1Negati ve Date of Service: 06/30/24 Follow Up: 1 Year From Orig inal Mammogram Procedure(s): MM tomosynthesis screening BI Accession Number(s): [id number] cc: Estrella Brunner MD EXAMINATION: MM SCREENING [...] 07/11/24 0847 DD/ 1000 TD/TT: 06/30/24 1030 Department Of Sociology Chair: Procedure Note Donotuseinterpreter, Image - 07/11/2024 [facility] [address] [place] [address] Dr. Arita, ADRIEN [address] Mammography Report Signed Patient: Deedee Linares FMR#: [id number] : 1Acct:[id number] Age/Sex: 74 / FADM Date: 06/30/24 Loc: HO.MAMMO Attending Dr: Estrella Brunner MD Ordering Physician: Estrella Brunner MDResults: 1Negati ve Date of Service: 06/30/24Follow Up: 1 Year From Orig inal Mammogram Procedure(s): MM tomosynthesis screening BI Accession Number(s): [id number] cc: Estrella Brunner MD EXAMINATION: MM SCREENING [...] by: Louise Coello DO 07/11/2024 08:47 AM [facility] Dictated By: Louise Coello DO Signed By: <Electronically signed by Louise Coello DO in OV> 07/11/24 0847 DD/ 1000 TD/TT: 06/30/24 1030 Department Of Sociology Chair: Estrella Brunner MD IMG BI PROCEDURES Final Result * Albumin, Random Urine W/Creatinine (05/13/2023 9:25 AM EDT) Creatinine, Urine 84.04 mg/dL [facility] Microalbumin Urine <5.0 mg/L [facility] Microalbum Creatinine Ratio Ur TNP <30 ug/mg cr [facility] Comment:Unable to calculate albumin/creatinine ratio due to lowmicroalbumin or creatinine result. 05/13/2023 9:25 AM EDT 05/13/2023 2:23 PM EDT Estrella Brunner MD LAB URINE ORDERABLES Final Resul t [facility] [address] [place] [address] [phone] * Colonoscopy (08/19/2020) Colonoscopy Normal Normal us Historical Provider MD HEALTH MAINTENANCE Final Result from Last 3 Months or Most Recently Relevant to Health Maintenance Insurance [facility] MEDICARE ADVANTAGE HMO DENTAL - HSN FULL (MEDICAID) Advance Directives Documents on File Type Date Recorded Patient Apartment Hotel Manager Expl anation MOLST form 03/30/2025 12:38 PM MOLST for m Advance Directives and Living Will 03/30/2025 10:00 AM Full Code: MOL Care Teams Surface Grinder Relationship Specialty Start Date End Date Estrella Brunner MD [address] [place] [phone] PCP - General Family Medicine [facility]
--- OUTSIDE RECORDS SUMMARY | 2025-06-21 12:42 | XMS_ITS | Encounter Summary ---
Author Organization [employer] Address [address] [facility] 7t [place] [address] Care Team Providers Care Water Tester Name Role Phone Estrella Brunner MD Primary Care Provider [phone] Reason for Visit * Reason Comments Med Refill Encounter Details Date Type Department Care Team (Late st Contact Info) Description 12/16/2022 Refill [facility] MEDICINE [address] [place] [address] Estrella Brunner MD [address] [place] [address] Social History Tobacco Use Types Packs/Day Years [...] Encounters Date Type Department Care Team (Late Contact Info) Description 07/12/2025 10:00 AM EST Office Visit [facility] OPTOMETRY [address] [place], [place] [phone] Mary Kate Kerr, EMMANUELLE [address] [place] [address] documented as of this encounter Visit Diagnoses Not on filedocumented in this encounter Care Teams Water Tester Relationship Specialty Start Date End Date Estrella Brunner MD [address] [place] [address] PCP - General Family Medicine 08/17/12 GabrielaLyla 06/05/24 documented as of this encounter
--- OUTSIDE RECORDS SUMMARY | 2025-06-21 12:42 | XMS_ITS | Encounter Summary ---
Author Organization [employer] Address [address] 7[address] [place] [address] Care Team Providers Care Customer Marketing Manager Name Role Phone Estrella Brunner MD Primary Care Provider [phone] Reason for Visit * Reason Onset Date Comments Medication Question 03/22/2025 Encounter Details Date Type Department Care Team ([facility] st Contact Info) Description 03/22/2025 Telephone [facility] CHC MED & PEDS [address] [place], [place] [phone] Estrella Brunner MD [address] [place], [place] [phone] Medication Question Social History Tobacco Use Types [...] strips and needles. To be sent to [facility] - [place], [place] - [address] documented in this encounter Plan of Treatment Upcoming Encounters Date Type Department Care Team (Late st Contact Info) Description 07/12/2025 10:00 AM EST Office Visit [facility] OPTOMETRY [address] [place] [address] Mary Kate Kerr OD [address] [place] [address] documented as of this encounter Visit Diagnoses Diagnosis Type 2 diabetes mellitus without complication, without long-term current use of insulin (HCC) documented in this encounter Additional Health Concerns Assessment Noted Time PHQ-9 Depression Total Score: 1 04/29/20 23 10:40 AM EDT documented as of this encounter Care Teams Customer Marketing Manager Relationship Specialty Start Date End Date Estrella Brunner MD [address] [place] [address] PCP - General Family Medicine 08/17/12 Mallory 06/05/24 documented as of this encounter
--- OUTSIDE RECORDS SUMMARY | 2025-06-21 12:43 | XMS_ITS ---
Author Organization [facility] Care Team Providers Care Radiologic Technology Instructor Name Role Phone Dayron Lovell Unavailable Unavailable Tiffany Tyson Unavailable Unavailable LevheimBeatriz Unavailable Unavailable Allergies and adverse reactions No Known Allergies Care Team Name Role Address Phone Organization Dates Dayron Lovell PCP [address], [address], [facility] (Office): : [facility] 11/17/2021 - 11/24/2021 Tiffany Tyson [address], [address], [facility] (Office): : [facility] 11/17/2021 - 11/24/2021 Beatriz Garcia [address], [address], [facility] (Office): [facility] 11/17/2021 - 11/24/2021 Immunizations Immunization Status Vaccine Details Vaccine Code [...] 11/14/2021 CAM 0 No delirium ind icated Insurance Providers Problems Problem # Description Date of onset Resolved Date Code CodeSystem Concern Status 1 ACUTE ON CHRONIC DIASTOLIC (CONGESTIVE) HEART FAILURE 11/17/[address] active 2 CHRONIC OBSTRUCTIVE PULMONARY DISEASE WITH (ACUTE) EXACERBATION 11/17/[address] active 3 AFTERCARE FOLLOWING JOINT REPLACEMENT SURGERY 11/14/[address] active 4 ESSENTIAL (PRIMARY) HYPERTENSION 11/14/[address] active 5 GASTRO-ESOPHAGEAL REFLUX DISEASE WITHOUT ESOPHAGITIS 11/14/[address] active 6 HYPERLIPIDEMIA, UNSPECIFIED 11/14/[address] active 7 MAJOR DEPRESSIVE DISORDER, SINGLE EPISODE, UNSPECIFIED 11/14/[address] active 8 PRESENCE OF LEFT ARTIFICIAL KNEE JOINT 11/14/[address] active 9 TYPE 2 DIABETES MELLITUS WITHOUT COMPLICATIONS 11/14/[address] active 10 UNILATERAL PRIMARY OSTEOARTHRITIS, LEFT KNEE 11/14/[address] active Reason for Referral No Reasons for Referral Entered Social History Social History Observation Description Start Date End Date Code Code System Current Smoking Status Tobacco smoking consumption unknown 681638131 SNOMED CT Sex Assigned At Female 1950 70411-0 [facility] Gender Identity Sexual Orientation Vital Signs Code Code System Vitals Name Values and Units Timing Information 66622-5 [facility] Pain Level Value=0.0 11/25/2021 2339-0 [facility] Blood Sugar Pxcwv=678.0 Units=mg/dL 11/24/2021 9279-1 [facility] Respiratory Rate Value=18.0 Units=/m in 11/24/2021 84177-9 [facility] O2 % BldC Oximetry Value=98.0 Units= % 11/24/2021 8462-4 [facility] Blood Pressure-Diastolic Value=62 Un its=mmHg 11/23/2021 8480-6 [facility] Blood Pressure-Systolic Iplnz=655 Un its=mmHg 11/23/2021 8867-4 [facility] Heart rate Value=72.0 Units=/min 8310-5 [facility] Body Temperature Value=97.2 Units= F 11/23/2021 02156-1 [facility] Weight Tbcgj=628.6 Units=Lbs 8302-2 [facility] Height Value=62.0 Units=Inches 11/17/2021
--- OUTSIDE RECORDS SUMMARY | 2025-06-21 12:43 | XMS_ITS | Encounter Summary ---
Author Organization [employer] Address [address] [facility] [address] 7[address] [place] [address] Care Team Providers Care Mechanical Assembly Technician Name Role Phone Estrella Brunner MD Primary Care Provider [phone] Encounter Details Date Type Department Care Team (Late st Contact Info) Description 06/21/2025 Orders Only GENERIC EXTERNAL DATA [...] Description 07/12/2025 10:00 AM EST Office Visit [facility] OPTOMETRY [address] [place], [place] [phone] Mary Kate Kerr, OD [address] [place] [address] documented as of this encounter Procedures Procedure Name Priority Date/Time Associated Diagnosis Comments GLUCOSE, WHOLE BLOOD Routine 06/21/2025 9:51 AM EDT documented in this encounter Results * (ABNORMAL) Glucose, Whole Blood (06/21/2025 9:51 AM EDT) Glucose, Whole Blood 159(H) 60 - 115 mg/dL [facility] Comment:METER #: [id number] 06/21/2025 9:51 AM EDT 06/21/2025 10:27 AM EDT us Generic External Data Provider LAB BLOOD ORDERAB LES Final Result Performing Organization Address City/State/[facility] Co de Phone Number [facility] [address] [place] [phone] documented in this encounter Visit Diagnoses Not on filedocumented in this encounter Additional Health Concerns Assessment Noted Time PHQ-9 Depression Total Score: 1 04/29/20 23 10:40 AM EDT documented as of this encounter Care Teams Mechanical Assembly Technician Relationship Specialty Start Date End Date Estrella Brunner MD [address] [place] [address] PCP - General Family Medicine 08/17/12 CaretenAlexsander 06/05/24 documented as of this encounter
--- OUTSIDE RECORDS SUMMARY | 2025-06-21 12:43 | XMS_ITS | Encounter Summary ---
Author Organization [employer] Address [address] [facility] [address] [place] [address] Care Team Providers Care Weaver Wire Loom Name Role Phone Estrella Brunner MD Primary Care Provider [phone] Reason for Visit * Reason Onset Date Comments FYI 09/14/2024 Encounter Details Date Type Department Care Team ([facility] st Contact Info) Description 09/14/2024 Telephone [facility] MEDICINE [address] [place] [address] Estrella Brunner MD [address] [place], [place] [phone] FYI Social History Tobacco Use Types Packs/Day [...] Description 07/12/2025 10:00 AM EST Office Visit [facility] OPTOMETRY [address] [place] [address] Mary Kate Kerr, EMMANUELLE [address] [place] [address] documented as of this encounter Visit Diagnoses Not on filedocumented in this encounter Additional Health Concerns Assessment Noted Time PHQ-9 Depression Total Score: 1 04/29/20 23 10:40 AM EDT documented as of this encounter Care Teams Weaver Wire Loom Relationship Specialty Start Date End Date Estrella Brunner MD [address] [place] [address] PCP - General Family Medicine 08/17/12 [facility] documented as of this encounter
--- OUTSIDE RECORDS SUMMARY | 2025-06-21 12:43 | XMS_ITS | Encounter Summary ---
Author Organization [employer] Address [address] [facility] [address] [place] [address] Care Team Providers Care Machine Sewer Name Role Phone Estrella Brunner MD Primary Care Provider [phone] Encounter Details Date Type Department Care Team ([facility] st Contact Info) Description 12/29/2024 Orders Only [facility] MED & PEDS [address] [place], [place] [phone] Stewart Perez MD [address] [place], [place] [phone] Normocytic anemia (Primary Dx) Social History Tobacco [...] Description 07/12/2025 10:00 AM EST Office Visit [facility] OPTOMETRY [address] [place] [address] Mary Kate Kerr, OD [address] [place] [address] Scheduled Orders Name Type Priority Associated Diagnoses [...] documented as of this encounter Care Teams Machine Sewer Relationship Specialty Start Date End Date Estrella Brunner MD [address] [place] [address] PCP - General Family Medicine 08/17/12 [facility] 06/05/24 documented as of this encounter
--- OUTSIDE RECORDS SUMMARY | 2025-06-21 12:43 | XMS_ITS | Encounter Summary ---
Author Organization [employer] Address [address] [address] [facility] [address] 7[address] [place] [address] Care Team Providers Care Grinder Brake Lining Name Role Phone Estrella Brunner MD Primary Care Provider [phone] Reason for Visit * Reason Onset Date Comments Nurse Triage 09/14/2024 Encounter Details Date Type Department Care Team ([facility] st Contact Info) Description 09/14/2024 Telephone [facility] MEDICINE [address] [place] [address] Estrella Brunner MD [address] [place], [place] [phone] Nurse Triage Social History Tobacco Use Types [...] t he electric, gas, oil or water [employer] threatened to shut off services in your [...] FYI regarding elevated BS . Please advise [facility] Primary care team nurses of [...] Description 07/12/2025 10:00 AM EST Office Visit [facility] OPTOMETRY [address] [place] [address] Mary Kate Kerr OD [address] [place] [address] documented as of this encounter Visit Diagnoses Not on filedocumented in this encounter Additional Health Concerns Assessment Noted Time PHQ-9 Depression Total Score: 1 04/29/20 23 10:40 AM EDT documented as of this encounter Care Teams Grinder Brake Lining Relationship Specialty Start Date End Date Estrella Brunner MD [address] [place] [address] PCP - General Family Medicine 08/17[facility] documented as of this encounter
--- NOTE | 2025-06-21 12:52 | MHC.EDTECH ---
FAMILY LEAVES @ THIS TIME
--- NOTE | 2025-06-21 16:31 | PC.NURSE ---
Donor Services called asking for the time Deedee went to the [facility]; pt to the [facility] at [phone].
== END 2025-06-21 13:33 | disposition expired ==
PROVIDERS: Emergency Provider Emergency Medicine; PCP Internal Medicine
DX: I46.9 Cardiac arrest, cause unspecified (principal); I25.2 Old myocardial infarction; J44.9 Chronic obstructive pulmonary disease, unspecified; I50.9 Heart failure, unspecified; Z87.891 Personal history of nicotine dependence; Z79.899 Other long term (current) drug therapy; Z99.81 Dependence on supplemental oxygen
CPT/HCPCS: 82947; 92950; 96374; 96375; 99282; 99285; J0168; J0618